=== PATIENT | male | born 1990 | race Caucasian/White ===

== ENCOUNTER 2023-07-20 17:28 | Emergency (ER) | payer OTHER, SELFPAY ==
[2023-07-20 17:34] VITALS: BP 139/96; PULSE 74; RESP 20; TEMP 36.7; O2SAT 98; BMI 28.0
--- NOTE | 2023-07-20 17:40 | ED_ITS ---
HPI - Abdominal Pain General Chief Complaint: Abdominal Pain Stated Complaint: Kidney Stones Time Seen by Provider: 07/20/23 17:29 Source: patient Mode of arrival: walk-in History of Present Illness HPI narrative: patient is a 32-year-old male who presents to the emergency department for the evaluation of right flank pain radiating into the abdomen. He states he was at [facility] yesterday and diagnosed with a 4 mm kidney stone. He states he has had no improvement with oxycodone and ibuprofen today for approximately the last eight hours. He has had no fevers, vomiting but does report nausea. He is urinating well and drinking fluids with no difficulty. He states he had blood in his urine yesterday but has not noticed any hematuria today. He states he was told yesterday to return to the Emergency Room if his pain got worse, but he states his pain was too severe so he came to the closest facility here today. Related Data Previous Rx's Medication Instructions Recorded ciprofloxacin HCl 500 mg tablet 500 mg PO BID #10 tabs 07/20/23 (Cipro) hydrocodone 5 mg-acetaminophen 325 1 tab PO Q6H PRN pain #12 tabs 07/20/23 mg tablet Allergies Allergy/AdvReac Type Severity Reaction Status Date / Time cefaclor [From [facility]] Allergy Severe Verified 07/20/23 17:34 Penicillins Allergy Severe Verified 07/20/23 17:34 Exam Narrative Exam Narrative: Gen.: Awake, alert, in no distress Head: Normocephalic, atraumatic ENT: Moist mucous membranes Respiratory: No respiratory distress, lungs clear bilaterally Cardio: Regular rate and rhythm Gastrointestinal: Abdomen is soft, nondistended and mildly tender to palpation in the right abdomen and right flank, no CVA tenderness. No guarding or rebound Extremities: Moves extremities equally Psych: Normal mood and affect Neuro: No focal neuro deficit Skin: Warm, dry, intact Constitutional Vital Signs, click to edit/add: Last Vital Signs Temp 98.1 F 07/20/23 17:34 Pulse 74 07/20/23 17:34 Resp 20 07/20/23 17:34 BP 139/96 H 07/20/23 17:34 Pulse Ox 98 07/20/23 17:34 O2 Del Method Room Air 07/20/23 17:34 Course Vital Signs Vital signs: Vital Signs Temperature 98.1 F 07/20/23 17:34 Pulse Rate 74 07/20/23 17:34 Respiratory Rate 20 07/20/23 17:34 Blood Pressure 139/96 H 07/20/23 17:34 Pulse Oximetry 98 07/20/23 17:34 Oxygen Delivery Method Room Air 07/20/23 17:34 Temperature 98.1 F 07/20/23 17:34 Pulse Rate 74 07/20/23 17:34 Respiratory Rate 20 07/20/23 17:34 Blood Pressure 139/96 H 07/20/23 17:34 Pulse Oximetry 98 07/20/23 17:34 Oxygen Delivery Method Room Air 07/20/23 17:34 MDM - Abdominal Pain MDM Narrative Medical decision making narrative: records reviewed from [facility] yesterday showing a CT scan with a 4 mm stone just distal to the UPJ, mild hydronephrosis noted. Labs today show white blood cell count 13.9 with no bandemia and normal lactic acid. Creatinine is 1.3. Patient was treated with IV fluids, Dilaudid, Toradol, Zofran. He is reevaluated by attending physician. We will add in Cipro to prevent significant infection, patient is given a prescription of [place] in case he runs out of his oxycodone. He is resting more comfortably on reevaluation by attending physician, but is remedicated with Dilaudid prior to discharge. He is given education and reassurance. Continue medications as prescribed from [facility]. Return to the Emergency Room if symptoms change or worsen. Follow-up with urology. Medical Records Attestation: I reviewed the patient's medical records. Lab Data Attestation: I reviewed the patient's lab results. Labs: Lab Results 07/20/23 Range/Units 17:40 WBC 13.9 H (4.0-11.0) 10^3/uL RBC 4.47 L (4.70-6.10) 10^6/uL Hgb 14.2 (14.0-18.0) g/dL Hct 41.0 L (42.0-54.0) % MCV 91.7 (80.0-94.0) fL MCH 31.8 (25.9-34.0) pg MCHC 34.6 (29.9-35.2) g/dL RDW 10.9 L (11.0-15.0) % Plt Count 248 (150-450) 10^3/uL MPV 10.2 (9.5-13.5) fL Neut % (Auto) 72.8 (43.0-75.0) % Lymph % (Auto) 16.9 L (20.5-60.0) % [place] % (Auto) 8.3 (1.7-12.0) % Eos % (Auto) 1.3 (0.9-7.0) % Baso % (Auto) 0.4 (0.2-2.0) % Neut # (Auto) 10.1 H (1.4-6.5) 10^3/uL Lymph # (Auto) 2.4 (1.2-3.8) 10^3/uL [place] # (Auto) 1.2 H (0.3-0.8) 10^3/uL Eos # (Auto) 0.2 (0.0-0.7) 10^3/uL Baso # (Auto) 0.1 (0.0-0.1) 10^3/uL Abs Immat Gran (auto) 0.04 H (0.00-0.03) 10^3/uL Imm/Tot Granulo (auto) 0.3 (0.0-0.5) % Sodium 140 (136-145) mmol/L Potassium 3.8 (3.5-5.1) mmol/L Chloride 103 (98-107) mmol/L Carbon Dioxide 28.7 (21.0-32.0) mmol/L Anion Gap 12.1 BUN 14.0 (7.0-18.0) mg/dL Creatinine 1.31 H (0.70-1.30) mg/dL Est GFR ( Amer) >60 (>=60) Est GFR (Non-Af Amer) >60 (>=60) BUN/Creatinine Ratio 10.7 Glucose 91 (74-106) mg/dL Lactate 1.1 (0.4-2.0) mmol/L Calcium 9.0 (8.5-10.1) mg/dL Total Bilirubin 0.4 (0.2-1.0) mg/dL AST 19 (15-37) U/L ALT 62 (16-63) U/L Alkaline Phosphatase 58 (46-116) U/L Total Protein 6.7 (6.4-8.2) g/dL Albumin 4.0 (3.4-5.0) g/dL Globulin 2.7 g/dL Albumin/Globulin Ratio 1.5 Discharge Plan Discharge Chief Complaint: Abdominal Pain Clinical Impression: Renal colic, Calculus of kidney Patient Disposition: Home, Self-Care Time of Disposition Decision: 18:32 Condition: Good Prescriptions / Home Meds: New hydrocodone-acetaminophen 5-325 mg tablet 1 tab PO Q6H PRN (Reason: pain) Qty: 12 0RF Rx Instructions: DX: N20.0 ciprofloxacin HCl [Cipro] 500 mg tablet 500 mg PO BID Qty: 10 0RF Instructions: Kidney Stones (ED) Stand Alone Forms: Portal Instructions Referrals: Physician,Non-Staff, MD [Primary Care Provider] - 1 week
[2023-07-20] MEDS: KETOROLAC TROMETHAMINE 30 MG/ML VIAL IVP (17:52)
[2023-07-20] MEDS: HYDROMORPHONE HCL 1 MG/ML CARTRIDGE IVP ×2 (17:52→18:50)
[2023-07-20] MEDS: ONDANSETRON PF 4 MG/2 ML VIAL IV (17:52)
[2023-07-20] MEDS: 0.9 % SODIUM CHLORIDE 1,000 ML 1000 ML IV (17:52)
[2023-07-20 17:54] LABS: Basophils Absolute Auto 0.1 10^3/uL (0.0-0.1); Basophils Percent Auto 0.4 % (0.2-2.0); Eosinophils Absolute Auto 0.2 10^3/uL (0.0-0.7); Eosinophils Percent Auto 1.3 % (0.9-7.0); Hemoglobin 14.2 g/dL (14.0-18.0); Immature Granulocytes Abs Auto 0.04 10^3/uL (0.00-0.03); Immature Granulocytes Pct Auto 0.3 % (0.0-0.5); Lymphocytes Absolute Auto 2.4 10^3/uL (1.2-3.8); Lymphocytes Percent Auto 16.9 % (20.5-60.0); Mean Corpuscular HGB Conc 34.6 g/dL (29.9-35.2); Mean Corpuscular Hemoglobin 31.8 pg (25.9-34.0); Mean Corpuscular Volume 91.7 fL (80.0-94.0); Mean Platelet Volume 10.2 fL (9.5-13.5); Monocytes Absolute Auto 1.2 10^3/uL (0.3-0.8); Monocytes Percent Auto 8.3 % (1.7-12.0); Neutrophils Absolute Auto 10.1 10^3/uL (1.4-6.5); Neutrophils Percent Auto 72.8 % (43.0-75.0); Platelet Count 248 10^3/uL (150-450); Red Blood Count 4.47 10^6/uL (4.70-6.10); Red Cell Distribution Width 10.9 % (11.0-15.0); White Blood Count 13.9 10^3/uL (4.0-11.0)
[2023-07-20 18:02] LABS: Alanine Aminotransferase 62 U/L (16-63); Albumin Globulin Ratio 1.5; Alkaline Phosphatase 58 U/L (46-116); Anion Gap 12.1; Aspartate Amino Transferase 19 U/L (15-37); BUN Creatinine Ratio 10.7; Bilirubin Total 0.4 mg/dL (0.2-1.0); Carbon Dioxide 28.7 mmol/L (21.0-32.0); Chloride 103 mmol/L (98-107); Estimated GFR (African America >60 (>=60); Estimated GFR (Non-African Ame >60 (>=60); Globulin 2.7 g/dL; Glucose 91 mg/dL (74-106); Potassium 3.8 mmol/L (3.5-5.1); Sodium 140 mmol/L (136-145); Total Protein 6.7 g/dL (6.4-8.2)
[2023-07-20 18:05] LABS: Lactate/Lactic Acid 1.1 mmol/L (0.4-2.0)
[2023-07-20] MEDS: CIPROFLOXACIN HCL 500 MG TABLET PO (19:27)
[2023-07-20 19:37] LABS: Bilirubin Urine NEGATIVE (NEGATIVE); Blood Urine MODERATE (NEGATIVE); Clarity Urine CLEAR (CLEAR); Color Urine LT. YELLOW (YELLOW); Glucose Urine UA NEGATIVE (NEGATIVE); Ketones Urine NEGATIVE (NEGATIVE); Leukocyte Esterase Urine NEGATIVE (NEGATIVE); Nitrite Urine NEGATIVE (NEGATIVE); Protein Urine NEGATIVE (NEG/TRACE); Urobilinogen Urine 0.2 EU/dL (0.2-1.0)
[2023-07-20 19:39] LABS: Urine Microscopic Indicated YES
[2023-07-20 19:53] LABS: Bacteria Urine NONE SEEN #/HPF (NONE SEEN); Cast Seen? NONE SEEN #/LPF (NONE SEEN); Crystals Seen? None Seen #/HPF (None Seen); Mucus Urine NONE SEEN (NONE SEEN); RBC Urine 0-2 #/HPF (0-2); Squamous Epithelial Cell Urine NONE SEEN #/LPF (NONE/RARE); WBC Urine 0-2 #/HPF (NONE SEEN)
== END 2023-07-20 19:36 | disposition home or self-care (01) ==
PROVIDERS: Physician Assistant; Emergency Provider Emergency Medicine
DX: N20.0 Calculus of kidney (principal); R10.9 Unspecified abdominal pain
CPT/HCPCS: 36415; 80053; 81001; 83605; 85025; 96374; 96375; 96376; 99285; J1170

== ENCOUNTER 2023-07-28 21:28 | Emergency (ER) | payer OTHER, SELFPAY ==
[2023-07-28 21:42] VITALS: BP 144/99; PULSE 72; RESP 20; TEMP 36.8; O2SAT 98; BMI 28.1
--- NOTE | 2023-07-28 22:16 | ED_ITS ---
HPI - Male Genitourinary General Chief complaint: Urogenital-Male Stated complaint: post surgical complaints Time Seen by Provider: 07/28/23 22:06 History of Present Illness HPI Narrative: bilat testicle pain. State he had a stent placed by Urology Dr Mccloud 4 days ago at [facility]. States after the procedure he noticed testicle pain. States the pain has continued on and off but constant today and not receiving any relief with motrin . States testicles are not tender and they don't hurt when you move them they are just hurting. No urinary symptoms. States his kidney stone was on the right side. No fever or urinary symptoms MD Complaint: Reports testicle pain Related Data Previous Rx's Medication Instructions Recorded ciprofloxacin HCl 500 mg tablet 500 mg PO BID #10 tabs 07/20/23 (Cipro) hydrocodone 5 mg-acetaminophen 325 1 tab PO Q6H PRN pain #12 tabs 07/20/23 mg tablet Allergies Allergy/AdvReac Type Severity Reaction Status Date / Time cefaclor [From Ceclor] Allergy Severe Verified 07/20/23 17:34 Penicillins Allergy Severe Verified 07/20/23 17:34 Review of Systems ROS Status of ROS 10 or more systems reviewed and unremarkable except as noted in history and below [facility] PFS Social History Smoking status: Never smoker Exam Constitutional Vital Signs, click to edit/add: Last Vital Signs Temp 98.3 F 07/28/23 21:42 Pulse 72 07/28/23 21:42 Resp 20 07/28/23 21:42 BP 144/99 H 07/28/23 21:42 Pulse Ox 98 07/28/23 21:42 O2 Del Method Room Air 07/28/23 21:42 Common normals: no apparent distress, average body habitus, oriented x3, no limitations and healthy appearing Eye Common normals: EOMs intact bilaterally and conjunctivae normal Respiratory Common normals: normal respiratory effort, no retractions, no use of accessory muscles and clear to auscultation bilaterally Cardio Common normals: regular rate, regular rhythm, S1 normal heart sound and S2 normal heart sound GI Common normals: Normal to inspection, nondistended, normoactive bowel sounds present, soft to palpation and non-tender Other: mild tenderness right inguinal. normal testes. no swelling or tenderness Extremity Common normals: normal to inspection Neuro Common normals: oriented x3, CN's II-XII intact bilaterally, moves all extremities, no focal motor deficits and no sensory deficits noted Psych Appearance: grossly normal Course Vital Signs Vital signs: Vital Signs Temperature 98.3 F 07/28/23 21:42 Pulse Rate 72 07/28/23 21:42 Respiratory Rate 20 07/28/23 21:42 Blood Pressure 144/99 H 07/28/23 21:42 Pulse Oximetry 98 07/28/23 21:42 Oxygen Delivery Method Room Air 07/28/23 21:42 Temperature 98.3 F 07/28/23 21:42 Pulse Rate 72 07/28/23 21:42 Respiratory Rate 20 07/28/23 21:42 Blood Pressure 144/99 H 07/28/23 21:42 Pulse Oximetry 98 07/28/23 21:42 Oxygen Delivery Method Room Air 07/28/23 21:42 MDM - Male Genitourinary MDM Narrative Medical decision making narrative: patient had stent placed this past tuesday right ureter for obstructing stone. Afterwards developed testicle pain. pain was on and off but became more constant when he presented here. Xray with proper placement of the stent. UA not infected. Patient treated with pyridium, toradol and magnesium with resolution of his testicle pain. Discharged home to follow up with urology Lab Data Labs: Lab Results 07/28/23 07/28/23 07/28/23 Range/Units 21:00 22:25 22:30 WBC 4.8 (4.0-11.0) 10^3/uL RBC 4.38 L (4.70-6.10) 10^6/uL Hgb 14.1 (14.0-18.0) g/dL Hct 40.1 L (42.0-54.0) % MCV 91.6 (80.0-94.0) fL MCH 32.2 (25.9-34.0) pg MCHC 35.2 (29.9-35.2) g/dL RDW 10.7 L (11.0-15.0) % Plt Count 256 (150-450) 10^3/uL MPV 10.4 (9.5-13.5) fL Neut % (Auto) 36.1 L (43.0-75.0) % Lymph % (Auto) 48.9 (20.5-60.0) % [place] % (Auto) 9.9 (1.7-12.0) % Eos % (Auto) 3.9 (0.9-7.0) % Baso % (Auto) 1.0 (0.2-2.0) % Neut # (Auto) 1.7 (1.4-6.5) 10^3/uL Lymph # (Auto) 2.4 (1.2-3.8) 10^3/uL [place] # (Auto) 0.5 (0.3-0.8) 10^3/uL Eos # (Auto) 0.2 (0.0-0.7) 10^3/uL Baso # (Auto) 0.1 (0.0-0.1) 10^3/uL Abs Immat Gran (auto) 0.01 (0.00-0.03) 10^3/uL Imm/Tot Granulo (auto) 0.2 (0.0-0.5) % Sodium 138 (136-145) mmol/L Potassium 3.7 (3.5-5.1) mmol/L Chloride 104 (98-107) mmol/L Carbon Dioxide 28.6 (21.0-32.0) mmol/L Anion Gap 9.1 BUN 15.0 (7.0-18.0) mg/dL Creatinine 1.12 (0.70-1.30) mg/dL Est GFR ( Amer) >60 (>=60) Est GFR (Non-Af Amer) >60 (>=60) BUN/Creatinine Ratio 13.4 Glucose 94 (74-106) mg/dL Calcium 8.8 (8.5-10.1) mg/dL Urine Color Lt. red (YELLOW) Urine Clarity Sl cloudy (CLEAR) Urine pH 7.0 (5.0-9.0) Ur Specific [place] 1.015 (1.005-1.025) Urine Protein 30 A (NEG/TRACE) mg/dL Urine Glucose (UA) Negative (NEGATIVE) mg/dL Urine Ketones Negative (NEGATIVE) mg/dL Urine Occult Blood Large A (NEGATIVE) Urine Nitrite Negative (NEGATIVE) Urine Bilirubin Negative (NEGATIVE) Urine Urobilinogen 0.2 (0.2-1.0) EU/dL Ur Leukocyte Esterase Trace A (NEGATIVE) Urine RBC >100 A (0-2) #/HPF Urine WBC 0-2 A (NONE SEEN) #/HPF Ur Squamous Epith Cells Rare (NONE/RARE) #/LPF Urine Crystals None seen (None Seen) #/HPF Urine Bacteria None seen (NONE SEEN) #/HPF Urine Casts None seen (NONE SEEN) #/LPF Urine Mucus None seen (NONE SEEN) Ur Culture Indicated? No Discharge Plan Discharge Chief Complaint: Urogenital-Male Clinical Impression: Pain in both testicles Patient Disposition: Home, Self-Care Prescriptions / Home Meds: No Action hydrocodone-acetaminophen 5-325 mg tablet 1 tab PO Q6H PRN (Reason: pain) Qty: 12 0RF Rx Instructions: DX: N20.0 ciprofloxacin HCl [Cipro] 500 mg tablet 500 mg PO BID Qty: 10 0RF Instructions: Testicle Pain (ED) Additional Instructions: follow up with urology Stand Alone Forms: Portal Instructions Referrals: Physician,Non-Staff, MD [Primary Care Provider] - 1 week
[2023-07-28 22:27] LABS: Bilirubin Urine NEGATIVE (NEGATIVE); Blood Urine LARGE (NEGATIVE); Clarity Urine SL CLOUDY (CLEAR); Color Urine LT. RED (YELLOW); Glucose Urine UA NEGATIVE (NEGATIVE); Ketones Urine NEGATIVE (NEGATIVE); Leukocyte Esterase Urine TRACE (NEGATIVE); Nitrite Urine NEGATIVE (NEGATIVE); Protein Urine 30 mg/dL (NEG/TRACE); Specific Gravity Urine 1.015 (1.005-1.025); Urobilinogen Urine 0.2 EU/dL (0.2-1.0)
[2023-07-28 22:28] LABS: Urine Microscopic Indicated YES
--- NOTE | 2023-07-28 22:31 | XR_ITS ---
The [address] [address] Patient Name: MANUELA CHAIDEZ MRN: [id number] date: 1990 Sex: M Assigned Patient Location: ER Current Patient Location: ER Accession/Order Number: [id number] Exam Date: 07/28/2023 22:45 Report Date: 07/28/2023 23:00 At the request of: BEBETO PEREZ Procedure: XR abdomen min 2V EXAM: XR abdomen min 2V REASON FOR EXAM: Male, 32 years, testicle pain. TECHNIQUE: 3 views of the abdomen are performed. COMPARISON: None. FINDINGS: The lung bases are not included in the latuu-nf-ecln. There is a normal abdominal gas pattern. There is a moderate amount stool throughout the colon. There is no demonstrated free abdominal air. The visualized liver, spleen, and kidneys are grossly normal in size and morphology. There is a right ureteral stent. A small calcification projects adjacent to the right ureteral stent measuring approximately 2 mm, which may represent a ureteral calculus. Normal osseous structures. Multiple phleboliths are seen within the pelvis. XR/XR abdomen min 2V IMPRESSION: Right ureteral stent is in place. Small calcification adjacent to the proximal aspect of the stomach likely represents a ureteral calculus. Nonobstructive abdominal bowel gas pattern. Electronically authenticated by: NASIR SPEARS Date: 07/28/2023 23:00
[2023-07-28 22:33] LABS: RBC Urine >100 #/HPF (0-2); WBC Urine 0-2 #/HPF (NONE SEEN)
[2023-07-28] MEDS: KETOROLAC TROMETHAMINE 30 MG/ML VIAL IVP (22:33)
[2023-07-28] MEDS: PHENAZOPYRIDINE 100 MG TABLET 200 MG PO (22:33)
[2023-07-28 22:34] LABS: Bacteria Urine NONE SEEN #/HPF (NONE SEEN); Cast Seen? NONE SEEN #/LPF (NONE SEEN); Crystals Seen? None Seen #/HPF (None Seen); Mucus Urine NONE SEEN (NONE SEEN); Squamous Epithelial Cell Urine RARE #/LPF (NONE/RARE); Urine Culture Indicated NO
[2023-07-28 22:38] LABS: Basophils Absolute Auto 0.1 10^3/uL (0.0-0.1); Eosinophils Absolute Auto 0.2 10^3/uL (0.0-0.7); Eosinophils Percent Auto 3.9 % (0.9-7.0); Hematocrit 40.1 % (42.0-54.0); Hemoglobin 14.1 g/dL (14.0-18.0); Immature Granulocytes Abs Auto 0.01 10^3/uL (0.00-0.03); Immature Granulocytes Pct Auto 0.2 % (0.0-0.5); Lymphocytes Absolute Auto 2.4 10^3/uL (1.2-3.8); Lymphocytes Percent Auto 48.9 % (20.5-60.0); Mean Corpuscular HGB Conc 35.2 g/dL (29.9-35.2); Mean Corpuscular Hemoglobin 32.2 pg (25.9-34.0); Mean Corpuscular Volume 91.6 fL (80.0-94.0); Mean Platelet Volume 10.4 fL (9.5-13.5); Monocytes Absolute Auto 0.5 10^3/uL (0.3-0.8); Monocytes Percent Auto 9.9 % (1.7-12.0); Neutrophils Absolute Auto 1.7 10^3/uL (1.4-6.5); Neutrophils Percent Auto 36.1 % (43.0-75.0); Platelet Count 256 10^3/uL (150-450); Red Blood Count 4.38 10^6/uL (4.70-6.10); Red Cell Distribution Width 10.7 % (11.0-15.0); White Blood Count 4.8 10^3/uL (4.0-11.0)
[2023-07-28 22:49] LABS: Anion Gap 9.1; BUN Creatinine Ratio 13.4; Calcium 8.8 mg/dL (8.5-10.1); Carbon Dioxide 28.6 mmol/L (21.0-32.0); Chloride 104 mmol/L (98-107); Estimated GFR (African America >60 (>=60); Estimated GFR (Non-African Ame >60 (>=60); Glucose 94 mg/dL (74-106); Potassium 3.7 mmol/L (3.5-5.1); Sodium 138 mmol/L (136-145)
[2023-07-29] MEDS: MAGNESIUM SULFATE IN WATER 2 GM/50 ML PREMIX IV (00:10)
== END 2023-07-29 01:09 | disposition home or self-care (01) ==
PROVIDERS: Emergency Provider Internal Medicine
DX: N50.812 Left testicular pain (principal); N50.811 Right testicular pain; Z96.0 Presence of urogenital implants; Z87.442 Personal history of urinary calculi
CPT/HCPCS: 36415; 74019; 80048; 81001; 85025; 96365; 96375; 99285

== ENCOUNTER 2023-09-16 21:04 | Emergency (ER) | payer OTHER, SELFPAY ==
[2023-09-16] VITALS (12 sets, daily range): BP systolic 130–143; BP diastolic 88; PULSE 60–80; RESP 13–26; TEMP 36.9; O2SAT 98; BMI 28.1
--- NOTE | 2023-09-16 21:38 | PC.NURSE ---
Pt reports increasedd SOB related to asthma. Pt uses albuterol inhaler at home without relief. This past Tuesday pt was seen at urgent care and sent home on PO steroids, pt reports no improvement. Lung sounds clear bilaterally.
--- NOTE | 2023-09-16 21:47 | XR_ITS ---
The [address] [address] Patient Name: MANUELA CHAIDEZ MRN: [id number] date: 1990 Sex: M Assigned Patient Location: ER Current Patient Location: ED.MAIN Accession/Order Number: [id number] Exam Date: 09/16/2023 23:20 Report Date: 09/16/2023 23:34 At the request of: RAMAKRISHNA ADNIEL Procedure: XR chest 1V EXAM: XR chest 1V HISTORY: shortness of breath COMPARISON: Chest x-ray 11/03/2022 TECHNIQUE: Single AP radiograph of the chest FINDINGS: No pneumothorax, pleural effusion or consolidation. Normal heart size. No acute osseous abnormality. XR/XR chest 1V IMPRESSION: No acute cardiopulmonary process. Electronically authenticated by: PUJA DE LA TORRE Date: 09/16/2023 23:34
--- NOTE | 2023-09-16 21:47 | ECG_ITS ---
The [facility] Test Date: 2023-09-16 Pat Name: MANUELA CHAIDEZ Department: Room: - Gender: Male Check Grader: : 1990 Requested By: JAGJIT CHINCHILLA Order Number: [id number] Reading MD: JAGJIT CHINCHILLA Measurements Intervals [place] Rate: 62 P: 52 MA: 144 QRS: 74 QRSD: 94 T: 34 QT: 382 QTc: 387 Interpretive Statements 1100 Sinus rhythm 9110 normal ECG No previous ECG available for comparison Electronically Signed On 09-18-2023 7:38:15 EST by JAGJIT CHINCHILLA
--- NOTE | 2023-09-16 21:48 | ED_ITS ---
HPI - General Adult General Chief complaint: Asthma Stated complaint: Shortness of Breath Time Seen by Provider: 09/16/23 21:12 Source: patient Mode of arrival: walk-in Limitations: no limitations History of Present Illness HPI narrative: Patient who was healthy up until a week ago presents with shortness of breath - sometimes at rest but often with exertion - and the sensation of wheezing even when wheezing isn't audible. No prior diagnosis of asthma. He had negative swabs for everything at the urgent care in [place] last week and was prescribed steroids and albuterol inhaler. He said this has caused no improvement. He admits to some chest congestion, cough worse at night, generalized fatigue. No GI or symptoms. Related Data Home Medications Medication Instructions Recorded Confirmed prednisone 20 mg tablet 20 mg PO DAILY 09/16/23 09/16/23 pyrilamine 7.5 mg-dextromethorphan 7.5 ml PO DAILY 09/16/23 09/16/23 7.5 mg/5 mL oral liquid ([place] DM) valacyclovir 1 gram tablet 1,000 mg PO DAILY 09/16/23 09/16/23 Previous Rx's Medication Instructions Recorded azithromycin 250 mg tablet 250 mg PO DAILY 4 days #4 tabs 09/16/23 Allergies Allergy/AdvReac Type Severity Reaction Status Date / Time cefaclor [From [facility]] Allergy Severe Verified 07/20/23 17:34 Penicillins Allergy Severe Verified 07/20/23 17:34 [facility] Social History Smoking status: Former smoker Exam Narrative Exam Narrative: Nurses notes and vital signs reviewed and patient is not hypoxic. afebrile General: Well-appearing and in no apparent distress. Skin: Warm, dry, no pallor noted. No rash. Head: Normocephalic, atraumatic. Neck: Supple, non-tender. Eye: Pupils are equal, round and EOMI. No scleral icterus. Ears, Nose, Mouth, and Throat: TM are clear, no nasal mucosal hypertrophy. Oral mucosa is moist, no posterior oropharynx erythema, uvula is mid-line Cardiovascular: Regular Rate and Rhythm without murmur, gallop or rub. Respiratory: No accessory muscle use or respiratory distress. Lungs are clear to auscultation, no wheezing, rales or rhonchi Chest Wall: no tenderness, crepitus or subcutaneous emphysema. Musculoskeletal: normal ROM, no calf or popliteal tenderness, no lower e xtremity edema/swelling GI: Abdomen is soft, non-distended. Normal bowel sounds. No masses appreciated. No tenderness to palpation. No rebound, guarding, or rigidity noted. Neurological: A&O x4. No cranial nerve dysfunction observed. No truncal ataxia. Moves all extremities. Sensation intact. Psychiatric: Cooperative and interactive. Normal mood and affect. Constitutional Vital Signs, click to edit/add: Last Vital Signs Temp 98.4 F 09/16/23 21:08 Pulse 68 09/16/23 23:10 Resp 13 09/16/23 23:10 BP 143/88 H 09/16/23 21:08 Pulse Ox 98 09/16/23 21:08 O2 Del Method Room Air 09/16/23 21:08 Course Vital Signs Vital signs: Vital Signs Temperature 98.4 F 09/16/23 21:08 Pulse Rate 77 09/16/23 21:08 Respiratory Rate 22 09/16/23 21:08 Blood Pressure 143/88 H 09/16/23 21:08 Pulse Oximetry 98 09/16/23 21:08 Oxygen Delivery Method Room Air 09/16/23 21:08 Temperature 98.4 F 09/16/23 21:08 Pulse Rate 68 09/16/23 23:10 Respiratory Rate 13 09/16/23 23:10 Blood Pressure 143/88 H 09/16/23 21:08 Pulse Oximetry 98 09/16/23 21:08 Oxygen Delivery Method Room Air 09/16/23 21:08 Medical Decision Making [facility] Narrative Medical decision making narrative: EKG obtained. Blood drawn and sent for evaluation. chest x-ray obtained - I identified LLL infiltrate. His blood testing was notable for elevated BUN, compared to normal value on prior testing. Normal electrolytes, normal WBC, negative d-dimer, troponin and BNP. He was informed of results, given first dose of azithromycin in ED and discharged home with the rest of the azithromycin. The patient has no primary care physician. He said that he has an appointment scheduled with Dr. Solis next week. Lab Data Lab results reviewed: Yes I reviewed the patient's lab results Labs: Lab Results 09/16/23 Range/Units 22:02 WBC 8.5 (4.0-11.0) 10^3/uL RBC 4.58 L (4.70-6.10) 10^6/uL Hgb 14.7 (14.0-18.0) g/dL Hct 41.7 L (42.0-54.0) % MCV 91.0 (80.0-94.0) fL MCH 32.1 (25.9-34.0) pg MCHC 35.3 H (29.9-35.2) g/dL RDW 11.2 (11.0-15.0) % Plt Count 303 (150-450) 10^3/uL MPV 10.2 (9.5-13.5) fL Neut % (Auto) 46.9 (43.0-75.0) % Lymph % (Auto) 40.2 (20.5-60.0) % [place] % (Auto) 8.6 (1.7-12.0) % Eos % (Auto) 2.8 (0.9-7.0) % Baso % (Auto) 1.1 (0.2-2.0) % Neut # (Auto) 4.0 (1.4-6.5) 10^3/uL Lymph # (Auto) 3.4 (1.2-3.8) 10^3/uL [place] # (Auto) 0.7 (0.3-0.8) 10^3/uL Eos # (Auto) 0.2 (0.0-0.7) 10^3/uL Baso # (Auto) 0.1 (0.0-0.1) 10^3/uL Abs Immat Gran (auto) 0.03 (0.00-0.03) 10^3/uL Imm/Tot Granulo (auto) 0.4 (0.0-0.5) % D-Dimer <0.19 (<=0.59) mg/L FEU Sodium 138 (136-145) mmol/L Potassium 3.7 (3.5-5.1) mmol/L Chloride 102 (98-107) mmol/L Carbon Dioxide 28.4 (21.0-32.0) mmol/L Anion Gap 11.3 BUN 24.0 H (7.0-18.0) mg/dL Creatinine 0.97 (0.70-1.30) mg/dL Est GFR ( Amer) >60 (>=60) Est GFR (Non-Af Amer) >60 (>=60) BUN/Creatinine Ratio 24.7 Glucose 108 H (74-106) mg/dL Calcium 9.2 (8.5-10.1) mg/dL Total Bilirubin 0.5 (0.2-1.0) mg/dL AST 26 (15-37) U/L ALT 151 H (16-63) U/L Alkaline Phosphatase 60 (46-116) U/L Troponin I High Sens 5.0 (4.0-76.1) pg/mL NT-Pro-B Natriuret Pep 24.0 (<=450.0) pg/mL Total Protein 7.0 (6.4-8.2) g/dL Albumin 4.2 (3.4-5.0) g/dL Globulin 2.8 g/dL Albumin/Globulin Ratio 1.5 SARS-CoV-2 (PCR) Negative (NEGATIVE) Imaging Data Chest x-ray: My impression: LLL infiltrate ECG Data Attestation: I personally reviewed and interpreted this ECG as follows: Interpretation: EKG interpretation: Emergency Department physician interpretation. Normal sinus rhythm at 62bpm. Normal axis, normal intervals and no ST segment elevation or depression. normal EKG Discharge Plan Discharge Chief Complaint: Asthma Clinical Impression: Acute kidney injury, Community acquired pneumonia Patient Disposition: Home, Self-Care Time of Disposition Decision: 23:36 Prescriptions / Home Meds: New azithromycin 250 mg tablet 250 mg PO DAILY 4 Days Qty: 4 0RF Rx Instructions: start on day 2 of therapy No Action valacyclovir 1 gram tablet 1,000 mg PO DAILY [place] DM 7.5-7.5 mg/5 mL liquid 7.5 ml PO DAILY prednisone 20 mg tablet 20 mg PO DAILY Instructions: Acute Kidney Injury (DC), Community Acquired Pneumonia (ED) Stand Alone Forms: Portal Instructions Referrals: Wily Solis DO [Physician] - 1 week
[2023-09-16 22:11] LABS: Basophils Absolute Auto 0.1 10^3/uL (0.0-0.1); Basophils Percent Auto 1.1 % (0.2-2.0); Eosinophils Absolute Auto 0.2 10^3/uL (0.0-0.7); Eosinophils Percent Auto 2.8 % (0.9-7.0); Hematocrit 41.7 % (42.0-54.0); Hemoglobin 14.7 g/dL (14.0-18.0); Immature Granulocytes Abs Auto 0.03 10^3/uL (0.00-0.03); Immature Granulocytes Pct Auto 0.4 % (0.0-0.5); Lymphocytes Absolute Auto 3.4 10^3/uL (1.2-3.8); Lymphocytes Percent Auto 40.2 % (20.5-60.0); Mean Corpuscular HGB Conc 35.3 g/dL (29.9-35.2); Mean Corpuscular Hemoglobin 32.1 pg (25.9-34.0); Mean Platelet Volume 10.2 fL (9.5-13.5); Monocytes Absolute Auto 0.7 10^3/uL (0.3-0.8); Monocytes Percent Auto 8.6 % (1.7-12.0); Neutrophils Percent Auto 46.9 % (43.0-75.0); Platelet Count 303 10^3/uL (150-450); Red Blood Count 4.58 10^6/uL (4.70-6.10); Red Cell Distribution Width 11.2 % (11.0-15.0); White Blood Count 8.5 10^3/uL (4.0-11.0)
--- NOTE | 2023-09-16 22:14 | PC.NURSE ---
Dr Parson spoke with pt on importance of EKG. Pt agreeable, EKG performed by RN.
[2023-09-16 22:22] LABS: SARS-CoV-2 Ag NEGATIVE (NEGATIVE)
[2023-09-16 22:28] LABS: Alanine Aminotransferase 151 U/L (16-63); Albumin Globulin Ratio 1.5; Albumin Level 4.2 g/dL (3.4-5.0); Alkaline Phosphatase 60 U/L (46-116); Anion Gap 11.3; Aspartate Amino Transferase 26 U/L (15-37); BUN Creatinine Ratio 24.7; Bilirubin Total 0.5 mg/dL (0.2-1.0); Calcium 9.2 mg/dL (8.5-10.1); Carbon Dioxide 28.4 mmol/L (21.0-32.0); Chloride 102 mmol/L (98-107); Estimated GFR (African America >60 (>=60); Estimated GFR (Non-African Ame >60 (>=60); Globulin 2.8 g/dL; Glucose 108 mg/dL (74-106); Potassium 3.7 mmol/L (3.5-5.1); Sodium 138 mmol/L (136-145)
[2023-09-16 22:36] LABS: D Dimer <0.19 mg/L FEU (<=0.59)
[2023-09-16] MEDS: AZITHROMYCIN 250 MG TABLET 500 MG PO (23:45)
[2023-09-17 10:28] LABS: SARS-CoV-2 NAA NOT DETECTED (NOT DETECTE)
== END 2023-09-16 23:50 | disposition home or self-care (01) ==
PROVIDERS: Emergency Provider Emergency Medicine
DX: J18.9 Pneumonia, unspecified organism (principal); N17.9 Acute kidney failure, unspecified; Z20.822 Contact with and (suspected) exposure to COVID-19; Z79.899 Other long term (current) drug therapy; Z87.891 Personal history of nicotine dependence
CPT/HCPCS: 36415; 71045; 80053; 83880; 84484; 85025; 85378; 87635; 87811; 93005; 99285

== ENCOUNTER 2023-09-30 15:24 | Emergency (ER) | payer OTHER, SELFPAY ==
[2023-09-30 15:30] VITALS: BP 124/78; PULSE 68; RESP 18; TEMP 36.8; O2SAT 98; BMI 28.8
--- NOTE | 2023-09-30 15:37 | ECG_ITS ---
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
--- NOTE | 2023-09-30 15:37 | XR_ITS ---
The [address] [address] Patient Name: MANUELA CHAIDEZ MRN: [id number] date: 1990 Sex: M Assigned Patient Location: ER Current Patient Location: ER Accession/Order Number: [id number] Exam Date: 09/30/2023 15:50 Report Date: 09/30/2023 16:21 At the request of: MELVIN REGAN Procedure: XR chest 1V EXAM: XR chest 1V HISTORY: or right-sided chest pain COMPARISON: 09/16/2023 TECHNIQUE: Chest X-ray AP, 1 view FINDINGS: Support devices: None. Lungs/pleura: No consolidation, effusion, or pneumothorax. Heart and mediastinum: Normal contours. Bones: No acute abnormality identified. XR/XR chest 1V Impression: No radiographic evidence of acute cardiopulmonary process. Electronically authenticated by: JATIN TALAVERA Date: 09/30/2023 16:21
--- NOTE | 2023-09-30 15:40 | ED_ITS ---
HPI - Chest Pain General Chief Complaint: Upper Respiratory Infection Stated Complaint: chest pain right side Time Seen by Provider: 09/30/23 15:28 Source: patient Mode of arrival: walk-in Limitations: no limitations History of Present Illness HPI narrative: 32-year-old male presents to the Emergency Department for right sided chest pain. It's on the right and anterolateral portion of the inferior chest wall. It hurts to push on it. He was diagnosed with pneumonia and finished a Z-Fabrice about ten days ago. The cough is gone away and he's had no fever but in the past day or two he developed this pain. No trauma or unusual activity and no left-sided pain. No substernal pain. It comes and goes. Related Data Home Medications Medication Instructions Recorded Confirmed prednisone 20 mg tablet 20 mg PO DAILY 09/16/23 09/16/23 pyrilamine 7.5 mg-dextromethorphan 7.5 ml PO DAILY 09/16/23 09/16/23 7.5 mg/5 mL oral liquid ([place] DM) valacyclovir 1 gram tablet 1,000 mg PO DAILY 09/16/23 09/16/23 Previous Rx's Medication Instructions Recorded azithromycin 250 mg tablet 250 mg PO DAILY 4 days #4 tabs 09/16/23 Allergies Allergy/AdvReac Type Severity Reaction Status Date / Time cefaclor [From Ceclor] Allergy Severe Verified 09/30/23 15:30 Penicillins Allergy Severe Verified 09/30/23 15:30 Review of Systems ROS Narrative A ten point review of systems is negative except as noted above. PFSH PFS Social History Smoking status: Former smoker Exam Narrative Exam Narrative: Nurses note and vital signs reviewed and patient is not hypoxic. General: The patient appears well and in no apparent distress. Patient is resting comfortably on cart. Skin: Warm, dry, no pallor noted. There is no rash noted. Head: Normocephalic, atraumatic Eye: Normal conjunctiva, no drainage Ears, Nose, Mouth, and Throat: oral mucosa is moist. Nares patent. Cardiovascular: Regular Rate and Rhythm Respiratory: Patient is in no distress, no accessory muscle use, lungs are clear to auscultation, no wheezing, rales or rhonchi. palpation of the right anterolateral inferior portion of his chest wall reproduces his discomfort. There is no crepitus bruise rash or abrasion present. No tenderness in the right upper quadrant. Back: non-tender GI: Normal bowel sounds, no tenderness to palpation, no masses appreciated. No rebound, guarding, or rigidity noted. Musculoskeletal: the patient has no evidence of calf tenderness, no pitting edema, symmetrical pulses noted bilaterally Neurological: A&O, normal speech Psychiatric: Cooperative Constitutional Vital Signs, click to edit/add: Last Vital Signs Temp 98.2 F 09/30/23 15:30 Pulse 68 09/30/23 15:30 Resp 18 09/30/23 15:30 BP 124/78 09/30/23 15:30 Pulse Ox 98 09/30/23 15:30 O2 Del Method Room Air 09/30/23 15:30 Course Vital Signs Vital signs: Vital Signs Temperature 98.2 F 09/30/23 15:30 Pulse Rate 68 09/30/23 15:30 Respiratory Rate 18 09/30/23 15:30 Blood Pressure 124/78 09/30/23 15:30 Pulse Oximetry 98 09/30/23 15:30 Oxygen Delivery Method Room Air 09/30/23 15:30 Temperature 98.2 F 09/30/23 15:30 Pulse Rate 68 09/30/23 15:30 Respiratory Rate 18 09/30/23 15:30 Blood Pressure 124/78 09/30/23 15:30 Pulse Oximetry 98 09/30/23 15:30 Oxygen Delivery Method Room Air 09/30/23 15:30 MDM - Chest Pain MDM Narrative Medical decision making narrative: his workup including d-dimer is negative. My clinical impression at this point is he has chest wall pain. He'll be discharged home and will take anti- inflammatories. Treatment diagnosis and follow up are discussed with the patient. Differential Diagnosis Differential diagnosis: Likely pneumothorax, costochondritis, chest pain and other (pulmonary embolism, pleurisy) Lab Data Attestation: I reviewed the patient's lab results. Labs: Lab Results 09/30/23 Range/Units 15:45 WBC 5.1 (4.0-11.0) 10^3/uL RBC 4.52 L (4.70-6.10) 10^6/uL Hgb 14.6 (14.0-18.0) g/dL Hct 41.1 L (42.0-54.0) % MCV 90.9 (80.0-94.0) fL MCH 32.3 (25.9-34.0) pg MCHC 35.5 H (29.9-35.2) g/dL RDW 11.0 (11.0-15.0) % Plt Count 245 (150-450) 10^3/uL MPV 10.6 (9.5-13.5) fL Neut % (Auto) 43.5 (43.0-75.0) % Lymph % (Auto) 40.7 (20.5-60.0) % [place] % (Auto) 11.7 (1.7-12.0) % Eos % (Auto) 3.3 (0.9-7.0) % Baso % (Auto) 0.6 (0.2-2.0) % Neut # (Auto) 2.2 (1.4-6.5) 10^3/uL Lymph # (Auto) 2.1 (1.2-3.8) 10^3/uL [place] # (Auto) 0.6 (0.3-0.8) 10^3/uL Eos # (Auto) 0.2 (0.0-0.7) 10^3/uL Baso # (Auto) 0.0 (0.0-0.1) 10^3/uL Abs Immat Gran (auto) 0.01 (0.00-0.03) 10^3/uL Imm/Tot Granulo (auto) 0.2 (0.0-0.5) % D-Dimer <0.19 (<=0.59) mg/L FEU Sodium 141 (136-145) mmol/L Potassium 4.0 (3.5-5.1) mmol/L Chloride 104 (98-107) mmol/L Carbon Dioxide 27.3 (21.0-32.0) mmol/L Anion Gap 13.7 BUN 15.0 (7.0-18.0) mg/dL Creatinine 1.21 (0.70-1.30) mg/dL Est GFR ( Amer) >60 (>=60) Est GFR (Non-Af Amer) >60 (>=60) BUN/Creatinine Ratio 12.4 Glucose 108 H (74-106) mg/dL Calcium 8.8 (8.5-10.1) mg/dL Imaging Data Chest x-ray: Radiologist's impression: Procedure: XR chest 1V EXAM: XR chest 1V HISTORY: or right-sided chest pain COMPARISON: 09/16/2023 TECHNIQUE: Chest X-ray AP, 1 view FINDINGS: Support devices: None. Lungs/pleura: No consolidation, effusion, or pneumothorax. Heart and mediastinum: Normal contours. Bones: No acute abnormality identified. Impression: No radiographic evidence of acute cardiopulmonary process. Electronically authenticated by: JATIN TALAVERA Date: 09/30/2023 16:21 ECG Data Attestation: I personally reviewed and interpreted this ECG as follows: (EKG on my interpretation shows sinus rhythm with a rate of 75 and no acute changes.) Discharge Plan Discharge Chief Complaint: Upper Respiratory Infection Clinical Impression: Acute chest wall pain Patient Disposition: Home, Self-Care Time of Disposition Decision: 16:32 Condition: Good Mode of Transportation: Private Vehicle Prescriptions / Home Meds: No Action valacyclovir 1 gram tablet 1,000 mg PO DAILY [place] DM 7.5-7.5 mg/5 mL liquid 7.5 ml PO DAILY prednisone 20 mg tablet 20 mg PO DAILY azithromycin 250 mg tablet 250 mg PO DAILY 4 Days Qty: 4 0RF Rx Instructions: start on day 2 of therapy Instructions: Chest Wall Pain (ED) Additional Instructions: [id number] anti-inflammatories such as Motrin or Advil Stand Alone Forms: Portal Instructions Referrals: Physician,Non-Staff, MD [Primary Care Provider] - 1 week
[2023-09-30 16:03] LABS: Basophils Percent Auto 0.6 % (0.2-2.0); Eosinophils Absolute Auto 0.2 10^3/uL (0.0-0.7); Eosinophils Percent Auto 3.3 % (0.9-7.0); Hematocrit 41.1 % (42.0-54.0); Hemoglobin 14.6 g/dL (14.0-18.0); Immature Granulocytes Abs Auto 0.01 10^3/uL (0.00-0.03); Immature Granulocytes Pct Auto 0.2 % (0.0-0.5); Lymphocytes Absolute Auto 2.1 10^3/uL (1.2-3.8); Lymphocytes Percent Auto 40.7 % (20.5-60.0); Mean Corpuscular HGB Conc 35.5 g/dL (29.9-35.2); Mean Corpuscular Hemoglobin 32.3 pg (25.9-34.0); Mean Corpuscular Volume 90.9 fL (80.0-94.0); Mean Platelet Volume 10.6 fL (9.5-13.5); Monocytes Absolute Auto 0.6 10^3/uL (0.3-0.8); Monocytes Percent Auto 11.7 % (1.7-12.0); Neutrophils Absolute Auto 2.2 10^3/uL (1.4-6.5); Neutrophils Percent Auto 43.5 % (43.0-75.0); Platelet Count 245 10^3/uL (150-450); Red Blood Count 4.52 10^6/uL (4.70-6.10); White Blood Count 5.1 10^3/uL (4.0-11.0)
[2023-09-30 16:08] LABS: Anion Gap 13.7; BUN Creatinine Ratio 12.4; Calcium 8.8 mg/dL (8.5-10.1); Carbon Dioxide 27.3 mmol/L (21.0-32.0); Chloride 104 mmol/L (98-107); Estimated GFR (African America >60 (>=60); Estimated GFR (Non-African Ame >60 (>=60); Glucose 108 mg/dL (74-106); Sodium 141 mmol/L (136-145)
[2023-09-30 16:19] LABS: D Dimer <0.19 mg/L FEU (<=0.59)
== END 2023-09-30 16:42 | disposition home or self-care (01) ==
PROVIDERS: Emergency Provider Emergency Medicine
DX: R07.89 Other chest pain (principal); Z87.891 Personal history of nicotine dependence; Z87.01 Personal history of pneumonia (recurrent)
CPT/HCPCS: 36415; 71045; 80048; 85025; 85378; 93005; 99285

== ENCOUNTER 2023-10-13 09:01 | Outpatient (OUT) | payer OTHER, SELFPAY ==
--- NOTE | 2023-10-13 09:45 | CA_ITS ---
Patient Name: MANUELA CHAIDEZ MR#: [id number] : 1990 Exam Date: 10/13/2023 Ordering Doctor: SANTY OBRIEN STAFF NUCLEAR MEDICINE TECHNOLOGIST-Radha ECHOCARDIOGRAM REPORT PROCEDURE: CA ECHO DOPPLER COMPLETE INDICATIONS: Family h/o HOCM COMPARISON: None. DESCRIPTION: COMPLETE ECHOCARDIOGRAM Real-time transthoracic echocardiography with 2D, M-mode, spectral and color flow Doppler performed. QUALITY: Technical quality was good. 60 , 200#, BSA 2.07 m2 LEFT VENTRICLE: Normal chamber size. Borderline left ventricular hypertrophy. LV EF: Global left ventricular systolic function is normal; visually estimated ejection fraction is 55 to 60%. No wall motion abnormalities. DIASTOLIC: Normal diastolic function. ATRIAL SEPTUM: Inadequately seen. LEFT ATRIUM: Normal chamber size. RIGHT ATRIUM: Normal chamber size. RIGHT VENTRICLE: Normal chamber size. Normal right ventricular systolic function. TRICUSPID VALVE: Normal mobility and thickness. No stenosis with trivial regurgitation. No evidence of pulmonary hypertension. RVSP 20 mmHg MITRAL VALVE: Normal mobility and thickness. No evidence of mitral valve stenosis. There is no mitral annular calcification. Trivial mitral regurgitation. AORTIC VALVE: Normal trileaflet appearance. No visible sclerosis. Normal leaflet mobility. No evidence of aortic valve stenosis. No aortic regurgitation. AORTIC ROOT: Normal diameter and appearance. PULMONIC VALVE: Normal thickness and mobility. No stenosis. Trivial regurgitation. PERICARDIUM: No evidence of pericardial effusion. IVC: Collapses with inspirations. IVC is normal in size. CONCLUSION: 1. Global left ventricular systolic function is normal; visually estimated ejection fraction is 55 to 60% 2. Normal right ventricular size and systolic function 3. Borderline increase in left ventricular wall thickness 4. Normal diastolic function 5. The left atrium is normal in size 6. No significant valvular abnormalities Adult Echocardiography Procedure Report Left Ventricle LVEDD (3.7 - 5.6 cm): 5.09 cm LVESD (2.2 - 4.0 cm): 3.34 cm LVIVS thickness (0.6 - 1.2 cm): 1.15 cm LVPW thickness (0.5 - 1.0 cm): 1.08 cm e': 0.16 m/s E - e': 4.78 LVOT Max Gradient: 3.00 mm[Hg] LVOT Area (cm2): 0.87 m/s Peak Velocity (LVOT): 0.87 m/s Mean Velocity (LVOT): 0.51 m/s LVOT Diameter 2.53 cm Left Atrium LA Volume Index (2D A2C): 32.92 ml/m2 Left Atrium Systolic Dimension: 3.78 cm Mitral Valve MV E to A Ratio: 3.10 Mitral Valve A-Wave Peak Velocity: 0.24 m/s Mitral Valve E-Wave Peak Velocity: 0.76 m/s Right Ventricle Aorta AO Root Diam: 3.41 cm Ascending Ao Diam: 2.70 cm Aortic Valve AoV Area (Peak Madi): 5.04 cm2, 5.04 cm2 AoV Area (VTI): 4.44 cm2, 4.44 cm2 Peak Velocity(Antegrade Flow): 0.87 m/s Peak Gradient(Antegrade Flow): 3.00 mm[Hg] Mean Velocity(Antegrade Flow): 0.59 m/s Mean Gradient(Antegrade Flow): 1.52 mm[Hg] Velocity Time Integral: 19.53 cm Tricuspid Valve Peak Velocity (Regurgitant Flow): 2.89 m/s, 2.04 m/s Pulmonic Valve Peak Gradient: 4.78 mm[Hg], 5.05 mm[Hg] Right Atrium Right Atrium Systolic Pressure: 46.25 ml, 46.25 ml Dictated by: Ana Morris M.D. on 10/14/2023 at 12:30 Approved by: Ana Morris M.D. on 10/14/2023 at 12:39
--- NOTE | 2023-10-13 09:46 | CA_ITS ---
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1990 Requested By: Vero Stern Order Number: [id number] Reading MD: KATELYN DOVER Interpretive Statements Predominant rhythm is sinus with average rate of 71 bpm Tachycardia - max rate of 172 bpm (sinus tachycardia) Bradycardia - min rate of 41 bpm Ventricular ectopy 3 PVC Patient triggered events: 6 - associated with symptoms of SOB and palpitations - associated with HR of 118 bpm and remainder NSR Impression: Predominant rhythm is sinus with average rate of 71 bpm Fastest rate of 172 bpm (sinus tachycardia) and slowest rate of 41 bpm No atrial fibrillation No pauses or blocks Electronically Signed On 10-30-2023 11:54:01 EST by KATELYN DOVER
== END 2023-10-13 09:02 | disposition home or self-care (01) ==
LOC: CARD 09:02
PROVIDERS: Visit Provider Nurse Practitioner Family
DX: R00.2 Palpitations (principal); Z82.49 Family history of ischemic heart disease and other diseases of the circulatory system
CPT/HCPCS: 93242; 93306

== ENCOUNTER 2023-11-19 17:00 | Emergency (ER) | payer OTHER, SELFPAY ==
[2023-11-19 17:06] VITALS: BP 142/84; PULSE 82; RESP 16; TEMP 37.1; O2SAT 96; BMI 29.3
--- OUTSIDE RECORDS SUMMARY | 2023-11-19 17:14 | XMS_ITS | CCD ---
Author Name Unknown Address [address] [place] [address] Organization [facility] Care Team Providers Care Marketing Segment Manager Name Role Phone Unavailable Primary Care Provider UnavailREECE Burnett Attending Unavailable ANA, BEBETO Consulting Unavailable DR ADELE CORONEL Primary Care Unavailable ANA, BEBETO Attending Unavailable ANA, BEBETO Admitting Unavailable LEONA JACK Unavailable MAURER, RONEL Admitting Unavailable MAURER, RONEL Primary Care Unavailable MAURER, RONEL Attending Unavailable MAURER, RONEL Admitting Unavailable MAURER, RONEL Primary Care Unavailable MAURER, RONEL Consulting Unavailable MAURER, RONEL Attending Unavailable ANA, BEBETO Consulting Unavailable MAURER, RONEL Primary Care Unavailable ANA, BEBETO Attending Unavailable ANA, BEBETO Admitting Unavailable ELISEO PIERCE Consulting Unavailable Claire Rothman Unavailable La Nena Travis Unavailable NO FAMILY, PHYSICIAN Primary Care Provider Unava ilable RAQUEL Robertson Emergency Provider MD Mina Baez Attending Provider [phone] NO FAMILY, PHYSICIAN Primary Care Unavailable Mina Baez Admitting Unavailable Mina Baez Attending Unavailable NO FAMILY, PHYSICIAN Primary Care Unavailable Aracelis Robertson Admitting Unavailable Aracelis Robertson N Attending Unavailable NO FAMILY, PHYSICIAN Primary Care Unavailable Mina Baez Admitting Unavailable Mina Baez Attending Unavailable Mina Baez Admitting Unavailable Mina Baez Attending Unavailable NO FAMILY, PHYSICIAN Primary Care Unavailable Vero Stern Unavailable KATELYN DOVER Primary Care Physician [phone] VERO TOLLIVER Attending Unavailable Mina BAEZ Attending Unavailable Mina BAEZ Attending Unavailable Mina BAEZ Referring Unavailable Mina BAEZ Attending Unavailable Mina BAEZ Attending Unavailable Mina BAEZ Attending Unavailable CarlosJoelle Unavailable Allergies Allergy Classification Reported Allergen(s) Allergy Type Date of Onset Reaction(s) Facility (8 sources) Cefaclor; Translations: [cefaclor] Drug Allergy 2 [facility] Penicillins Allergy to substance 2 Nausea, [facility]aphylaxis [facility] Cefaclor; Translations: [Ceclor] Drug Allergy 3 [facility]ository (1 source) Penicillins Drug allergy (disorder) 3 [facility] Repository (7 sources) Penicillin G Drug Allergy [facility] [employer] Other (4 sources) Penicillin; Translations: [penicillin] Drug Allergy [facility] (2 sources) HYDROmorphone; Translations: [hydromorphone] Drug Allergy 3 [facility] (1 source) Cefaclor Drug Allergy 3 [facility] Repository (1 source) Penicillins Drug allergy (disorder) 3 [facility] Repository Medications Current Medications Medication Drug Class(es) Dates Sig (Normalized) Sig (Original) acetaminophen 500 mg oral tablet (2 sources) Start: 08-08-2023 take 2 tablets by mouth every four hours Acetaminophen (Tylenol Extra Strength) 500 mg Tablet Active 1000 MG PO Q4H August 08, 2023 12:00am Start: 08-08-2023 End: 08-08-2023 Acetaminophen (Tylenol) 325 mg Tablet Discontinued 650 MG PO As Directed August 08, 2023 12:00am August 08, 2023 2:32pm acetaminophen 325 mg / HYDROcodone bitartrate 5 mg oral tablet (4 sources) Opioid Agonist Start: 07-25-2023 End: 08-08-2023 take 1 tablet by mouth every four to six hours Hydrocodone-Acetaminophen Active 1 TAB PO EVERY 4-6 HOURS 7 3 August 08, 2023 acetaminophen 325 mg / oxyCODONE hydrochloride 5 mg oral tablet (1 source) Opioid Agonist Start: 07-19-2023 take 1 tablet by mouth every four to six hours Oxycodone-Acetaminophen (Percocet) 5-325 mg tablet Active 1 TAB PO EVERY 4-6 HOURS 12 July 19, 2023 [id number] 60 actuat albuterol 0.09 mg/actuat metered dose inhaler (5 sources) beta2-Adren ergic Agonist Start: 09-10-2023 take 2 puff(s) by inhalation every four to six hours as needed Albuterol Sulfate HFA 108 (90 Base) MCG/ACT 2 puffs as needed Inhalation every 4-6 hours for 30 days Aug, Active Start: 09-10-2023 take 2 puff(s) by in halation every four to six hours as needed Albuterol Sulfate HFA 108 (90 Base) MCG/ACT 2 puffs as needed Inhalation every 4-6 hours for 30 days Aug, Active ciprofloxacin 500 mg oral tablet (4 sources) Quinolone Antimicrobial Start: 07-25-2023 End: 08-08-2023 take 1 tablet by mouth every two hours Ciprofloxacin Hcl (Cipro) 500 mg tablet Active 500 MG PO Q12H August 08, 2023 12:00am administer dose at least 2 hrs before/6 hrs after dairy products, calcium, zinc, and/or iron-containing products dextromethorphan hydrobromide 15 mg / guaiFENesin 400 mg / pseudoephedrine hydrochloride 60 mg oral tablet (1 source) alpha-Adrenergic Agonist, Uncompetitive Q-xlmsav-U-asparta te Receptor Antagonist, Sigma-1 Agonist Start: 07-07-2023 take 4 tablets by mouth every twenty-four hours as needed Capmist DM 60-15-400 MG as needed Orally every 4-6 hours as needed, max 4 tablets in 24 hours for 5 days Jun, Active dextromethorphan hydrobromide 1.5 mg/ml / pyrilamine maleate 1.5 mg/ml oral solution (5 sources) Uncompetitive H-hotqgd-I-asparta te Receptor Antagonist, Sigma-1 Agonist Start: 09-10-2023 take 10 mL by mouth every eight hours [place] DM 7.5-7.5 MG/5ML 10 mL Orally every 8 hours for 5 days Aug, Active hydrOXYzine pamoate 25 mg oral capsule (1 source) Antihistamine Start: 08-02-2022 End: 08-12-2022 take 1 capsule by mouth three times daily hydrOXYzine pamoate (Vistaril) 25 mg capsule Indications: Anxiety about health Take 1 capsule (25 mg total) by mouth 3 (three) times a day if needed for itching for up to 10 days. 30 capsule 0 08/02/2022 08/12/2022 Active ibuprofen 800 mg oral tablet (1 source) Nonsteroidal Anti-inflammatory Drug Start: 07-07-2023 take 1 tablet by mouth three times daily at mealtime as needed Ibuprofen 800 MG 1 tablet with food or milk as needed Orally Three times a day for 7 days Jun, Active oxybutynin chloride 5 mg oral tablet (4 sources) Cholinergic Muscarinic Antagonist Start: 08-09-2023 take 1 tablet by mouth three times daily as needed oxybutynin 5 mg Tab 5 mg = 1 tab(s), Oral, TID, PRN for urinary discomfort, # 60 tab(s), Refills(s) 0, Pharmacy: [facility]/pharmacy #[id number], 175, cm, 07/25/23 9:08:00 EDT, Height/Length Dosing, 89.5, kg, 07/25/23 9:08:00 EDT, Weight Dosing Start Date: 08/09/23 Status: Ordered Start: 07-25-2023 End: 08-08-2023 take 5 mg by mouth twice daily Oxybutynin Chloride Dis continued 5 MG PO Twice daily 60 July 25, 2023 12:00am August 08, 2023 2:01pm predniSONE 20 mg oral tablet (6 sources) Start: 09-10-2023 take 1 tablet by mouth every twelve hours prednisone 20 MG 1 tablet Orally BID for 5 Aug, Active Start: 07-07-2023 take 1 tablet by ran th every twelve hours prednisone 20 MG 1 tablet Orally BID for 5 Jun, Active tamsulosin hydrochloride 0.4 mg oral capsule (5 sources) alpha-Adrenergic Feliberto Start: 07-19-2023 End: 08-08-2023 take 1 capsule by mouth once daily Flomax 0.4 mg Cap 0.4 mg = 1 cap(s), Oral, Daily, # 30 cap(s), Refills(s) 0, Pharmacy: [facility]/pharmacy #[id number], 175, cm, 07/25/23 9:08:00 EDT, Height/Length Dosing, 89.5, kg, 07/25/23 9:08:00 EDT, Weight Dosing Start Date: 08/09/23 Status: Ordered traZODone hydrochloride 100 mg oral tablet (5 sources) Serotonin Reuptake Inhibitor take 1 tablet by mouth every twenty-four hours traZODone HCl 100 MG 1 tablet at bedtime Orally Once a day for 90 days Active valACYclovir 1000 mg oral tablet (13 sources) Herpesvirus Nucleoside Analog DNA Polymerase Inhibitor, Herpes Simplex Virus Nucleoside Analog DNA Polymerase Inhibitor, Herpes Zoster Virus Nucleoside Analog DNA Polymerase Inhibitor Start: 07-25-2023 valacyclovir 1 g Tab Refills(s) 0 Start Date: 07/25/23 Status: Ordered Start: 07-19-2023 take 1 mg by mouth once daily Valacyclovir Active 1 MG PO Daily July 19, 2023 12:00am take 1 tablet by ran th every twenty-four hours valACYclovir HCl 500 MG 1 tablet Orally Once a day PRN Active Completed/Discontinued Medications Medication Drug Class(es) Dates Sig (Normalized) Sig (Original) methylPREDNISolone (7 sources) Corticosteroid Start: 03-11-2014 Depo-Medrol 80 mg February, 80 mg ondansetron 4 mg disintegrating oral tablet (10 sources) Serotonin-3 Receptor Antagonist Start: 07-19-2023 End: 08-08-2023 take 4 mg by mouth every eight hours Ondansetron Discontinued 4 MG PO Q8H 9 July 19, 2023 12:00am August 08, 2023 2:01pm Start: 05-23-2023 take 1 tablet by ran th every eight hours as needed for nausea Ondansetron 4 MG 1 tablet on the tongue and allow to dissolve Orally every 8 hours prn nausea/vomiting for 5 days Apr, Not-Taking Start: 12-25-2020 End: 07-19-2023 Ondansetron Hcl (Zofran) 4 m g tablet Discontinued 4 MG PO every 6 to 8 hours December 25, 2020 1:00am July 19, 2023 6:37pm pantoprazole 40 mg delayed release oral tablet (4 sources) Proton Pump Inhibitor Start: 12-25-2020 End: 07-19-2023 take 1 tablet by mouth once daily Pantoprazole (Protonix) 40 mg tablet,delayed release (DR/EC) Discontinued 40 MG PO Daily 14 December 25, 2020 1:00am July 19, 2023 6:37pm sucralfate 1000 mg oral tablet (4 sources) Aluminum Complex Start: 12-25-2020 End: 07-19-2023 take 1 tablet by mouth every six hours Sucralfate (Carafate) 1 gram tablet Discontinued 1 GM PO Q6H 56 December 25, 2020 1:00am July 19, 2023 6:37pm tiZANidine 2 mg oral tablet (4 sources) Central alpha-2 Adrenergic Agonist Start: 12-25-2020 End: 07-19-2023 take 2 mg by mouth once daily at bedtime Tizanidine Discontinued 2 MG PO Daily at bedtime December 25, 2020 1:00am July 19, 2023 6:38pm Problems Active Problems Problem Classification Problem Date Documented Date Episodic/Chronic Abdominal pain (4 sources) Epigastric pain; Translations: [Epigastric pain] 12-25-2020 Episodic Anxiety disorders (2 sources) Anxiety about body function or health; Translations: [Other specified anxiety disorders] Onset: 03-24-2022 Chronic Asthma (9 sources) Asthma; Translations: [Mild intermittent asthma] 07-25-2023 Chronic Calculus of urinary tract (14 sources) Ureteric stone; Translations: [Calculus of ureter] Onset: 07-19-2023 07-19-2023 Episodic Cardiac dysrhythmias (2 sources) Palpitations Episodic Fracture of upper limb (1 source) Fracture at wrist and/or hand level; Translations: [Hydronephrosis with renal and ureteral calculous obstruction] Onset: 07-25-2023 Episodic Immunizations and screening for infectious disease (1 source) Patient encounter status; Translations: [Encounter for screening for infections with a predominantly sexual mode of transmission] Episodic Intestinal infection (1 source) Viral intestinal infection, unspecified Episodic Nonspecific chest pain (1 source) Chest pain, unspecified; Translations: [CHEST PAIN UNSPECIFIED] Onset: 11-05-2022 Episodic Other and ill-defined heart disease (4 sources) Ventricular hypertrophy ; Translations: [Cardiomegaly] Chronic Other and ill-defined heart disease (1 source) Cardiomegaly Chronic Other diseases of kidney and ureters (3 sources) Hydronephrosis with renal and ureteral calculous obstruction; Translations: [Hydronephrosis with urinary obstruction due to ureteral calculus] 07-25-2023 Episodic Other lower respiratory disease (4 sources) Shortness of breath; Translations: [SHORTNESS OF BREATH] Onset: 11-04-2022 Episodic Other screening for suspected conditions (not mental disorders or infectious disease) (1 source) Other specified abnormal findings of blood chemistry Episodic Other upper respiratory infections (3 sources) Acute upper respiratory infection, unspecified; Translations: [Acute pharyngitis, unspecified] Onset: 03-24-2022 Episodic Poisoning by other medications and drugs (2 sources) Poisoning by unspecified drugs, medicaments and biological substances, accidental (unintentional), initial encounter; Translations: [Poisoning by unspecified drug or medicinal substance] Onset: 08-21-2022 Episodic Residual codes; unclassified (5 sources) Obstructive sleep apnea (adult) (pediatric); Translations: [OBSTRUCTIVE SLEEP APNEA] Onset: 12-01-2021 Chronic Residual codes; unclassified (5 sources) Obstructive sleep apnea syndrome; Translations: [Obstructive sleep apnea (adult) (pediatric)] Chronic Residual codes; unclassified (5 sources) Sleep disorder; Translations: [Sleep disorder, unspecified] Episodic Residual codes; unclassified (1 source) Sleep disorder, unspecified Episodic Residual codes; unclassified (2 sources) Family history of ischemic heart disease and other diseases of the circulatory system Episodic Substance-related disorders (1 source) Nicotine dependence, cigarettes, uncomplicated; Translations: [NICOTINE DEPEND CIGARETTES UNCOMP] Onset: 11-05-2022 Chronic Substance-related disorders (1 source) Other psychoactive substance use, unspecified, uncomplicated; Translations: [OTH PSYCHOACTIVE SBSTNC UNS UNCOMP] Onset: 11-05-2022 Episodic Unclassified (1 source) APPOINTMENT CANCELLED Unclassified (2 sources) COUGH, UNSPECIFIED; Translations: [COUGH, UNSPECIFIED] Onset: 03-24-2022 Unclassified (4 sources) CONTACT W/AND (SUSP) EXPOS COVID-19; Translations: [CONTACT W/AND (SUSP) EXPOS COVID-19] Onset: 12-21-2021 Viral infection (1 source) Viral disease; Translations: [Viral infection, unspecified] Episodic Past or Other Problems Problem Classification Problem Date Documented Da te Episodic/Chronic Unclassified (1 source) COUGH, UNSPECIFIED; Translations: [COUGH, UNSPECIFIED] Onset: 03-23-2022 Unclassified (1 source) CONTACT W/AND (SUSP) EXPOS COVID-19; Translations: [CONTACT W/AND (SUSP) EXPOS COVID-19] Onset: 12-17-2021 Unclassified (1 source) Suspected COVID-19 virus infection Z20.822 Results Test Name Value Interpretation Reference Range Facility [facility] 10-10-2023 Lab Reports [id number] [address]#[facility] Ambulatory Visit Summaryon 1 11-28-2022 Ambulatory Visit Summary MANUELA DAVILA :1990 Visit Date:09/27/2023 Ambulatory Visit Instructions Your Diagnosis Kidney stone Ureteral stone Tests Performed Urnls Dip Stick Auto w/o Microscopy POC 91134 Your Care Team Attending Physician - VERO TOLLIVER PA-C Primary Care Physician - KATELYN DOVER DO This Is Your Medications List Contact prescribing physician if questions or concerns valacyclovir (valacyclovir 1 g Tab) [Image Removed: STOP]Stop taking these medications oxybutynin (oxybutynin 5 mg Tab) tamsulosin (Flomax 0.4 mg Cap) Procedures Performed Cystoscopic laser lithotripsy of ureteric calculus (08/08/2023), Cystoscopic insertion of ureteric stent (07/25/2023), History of hernia repair, Tonsillectomy. Discharge Vitals Heart Rate (Peripheral) 65 Respiratory Rate 16 Blood Pressure 120/87 Height 175 cm Height 69 in Weight 89.5 kg Weight 196.9 lb BMI 29.22 What to do next Scheduled Follow-Up Appointments Tuesday 2:30 PM EDT With: NESTOR PERSON, Mina Nam Where: [facility] Patient Educationon 09-27-20 Patient Education Nephrology Dietary Guidelines to Help Prevent Kidney Stones Kidney stones are deposits of minerals and salts that form inside your kidneys. Your risk of developing kidney stones may be greater depending on your diet, your lifestyle, the medicines you take, and whether you have certain medical conditions. Most people can lower their risks of developing kidney stones by following these dietary guidelines. Your dietitian may give you more specific instructions depending on your overall health and the type of kidney stones you tend to develop. What are tips for following this plan? Reading food labels ? Choose foods with no salt added or low-salt labels. Limit your salt (sodium) intake to less than 1,500 mg a day. ? Choose foods with calcium for each meal and snack. Try to eat about 300 mg of calcium at each meal. Foods that contain 200?500 mg of calcium a serving include: ? 8 oz (237 mL) of milk, calcium-fortifiedno n-dairy milk, and calcium-fortifiedfr uit juice. Calcium-fortified means that calcium has been added to these drinks. ? 8 oz (237 mL) of kefir, yogurt, and soy yogurt. ? 4 oz (114 g) of tofu. ? 1 oz (28 g) of cheese. ? 1 cup (150 g) of dried figs. ? 1 cup (91 g) of cooked broccoli. ? One 3 oz (85 g) can of sardines or mackerel. Most people need 1,000?1,500 mg of calcium a day. Talk to your dietitian about how much calcium is recommended for you. Shopping ? Buy plenty of fresh fruits and vegetables. Most people do not need to avoid fruits and vegetables, even if these foods contain nutrients that may contribute to kidney stones. ? When shopping for convenience foods, choose: ? Whole pieces of fruit. ? Pre-made salads with dressing on the side. ? Low-fat fruit and yogurt smoothies. ? Avoid buying frozen meals or prepared deli foods. These can be high in sodium. ? Look for foods with live cultures, such as yogurt and kefir. ? Choose high-fiber grains, such as whole-wheat breads, oat bran, and wheat cereals. Cooking ? Do not add salt to food when cooking. Place a salt shaker on the table and allow each person to add their own salt to taste. ? Use vegetable protein, such as beans, textured vegetable protein (TVP), or tofu, instead of meat in pasta, casseroles, and soups. Meal planning ? Eat less salt, if told by your dietitian. To do this: ? Avoid eating processed or pre-made food. ? Avoid eating fast food. ? Eat less animal protein, including cheese, meat, poultry, or fish, if told by your dietitian. To do this: ? Limit the number of times you have meat, poultry, fish, or cheese each week. Eat a diet free of meat at least 2 days a week. ? Eat only one serving each day of meat, poultry, fish, or seafood. ? When you prepare animal proteins, cut pieces into small portion sizes. For most meat and fish, one serving is about the size of the palm of your hand. ? Eat at least five servings of fresh fruits and vegetables each day. To do this: ? Keep fruits and vegetables on hand for snacks. ? Eat one piece of fruit or a handful of berries with breakfast. ? Have a salad and fruit at lunch. ? Have two kinds of vegetables at dinner. ? You may be told to limit foods that are high in a substance called oxalate. These include: ? Spinach (cooked), rhubarb, beets, sweet potatoes, and [place] chard. ? Peanuts. ? Potato chips, nauruan fries, and baked potatoes with skin on. ? Nuts and nut products. ? Chocolate. ? If you regularly take a diuretic medicine, make sure to eat at least 1 or 2 servings of fruits or vegetables that are high in potassium each day. These include: ? Avocado. ? Banana. ? [place], prune, carrot, or tomato juice. ? Baked potato. ? Cabbage. ? Beans and split peas. Lifestyle ? Drink enough fluid to keep your urine pale yellow. This is the most important thing you can do. Spread your fluid intake throughout the day. ? If you drink alcohol: ? Limit how much you have to: ? 0?1 drink a day for women who are not . ? 0?2 drinks a day for men. ? Know how much alcohol is in your drink. In the [place] one drink equals one 12 oz bottle of beer (355 mL), one 5 oz glass of wine (148 mL), or one 1? oz glass of hard liquor (44 mL). ? Lose weight if told by your health care provider. Work with your dietitian to find an eating plan and weight loss strategies that work best for you. General information ? Talk to your health care provider and dietitian about taking daily supplements. Depending on your health and the cause of your kidney stones, you may be told: ? Do not take high-dose supplements of vitamin C (1,000 mg a day or more). ? To take a calcium supplement. ? To take a daily probiotic supplement. ? To take other supplements such as magnesium, fish oil, or vitamin B6. ? Take sgnj-xnd-uxrytut and prescription medicines only as told by your health care provider. These include supplements. What foods sh (more content not included)... Normal [facility] Office/Clinic Noteon 09-27-2023 Urology Office/Clinic Note Chief Complaint Review [facility] HPI Staff [facility] pt Last seen in our office by [facility] 07/25/23 DX: Ureteral & Renal Stone S/P Cysto Rt Stent Placement 07/25/23 & Laser Litho. Rt Stent Exchange & Stone Basket Extraction 08/08/23 String Stent removed in office 08/12/23 Stone Analysis 08/08/23 Pt is here today to review [facility] CMP 09/16/23 Pt does have f/u w/[facility] scheduled in January 2024 w/[facility]. Pt. not having any urinary issues at this time. History of Present Illness staff HPI reviewed and agree. Review of Systems PHQ Score Initial Depression Screen Score: 0 SCORE no fever, chills, malaise, myalgia. no rash/lesions. no chest pain, palpitations, or SOB. no abdominal pain, nausea, vomiting. no unilateral calf swelling, redness, pain Physical Exam Vitals & Measurements HR: 65(Peripheral) RR: 16 BP: 120/87 HT: 69 in HT: 175 cm WT: 89.5 kg WT: 196.9 lb BMI: 29.22 General: nontoxic, NAD Mouth: moist mucosa Lungs: normal respiratory effort Cardio: regular rate, good distal perfusion Abdomen: nondistended, no suprapubic distention or tenderness, no CVA tenderness Neurologic: Grossly normal Skin: No rashes or suspicious lesions Assessment/Plan Dr. Baez pt 1. Kidney stone (N20.0: Calculus of kidney) KUB 10/02/23 - A tiny stone overlying the R L2 transverse process measuring 3mm. R renal stone. S/p Cysto/R RGP/R stent placement 07/25/23. S/p Cysto/R stent removal/R URS/laser ablation/basket extraction/R string stent placement 08/08/23. Removed string stent IO 08/12/23. KUB 08/08/23 [facility] - A tiny stone at proximal R ureter just above L2 transverse process. Stone analysis 08/08/23 - 60% CaOx Di, 35% CaOx mono, 5% Hydroxyapatite. Met w/u 08/27/23 - low urine citrate and sodium; high urine uric acid, phosphorus, ammonium, and urea nitrogen. Discussed [facility]ink results. Advised pt he has slightly low volume of urine for a stone former, recommended increase 0.5-1L. Also has markedly low citrate.Offered supplement vs add 3oz lemon daily. Pt prefers to do the latter. 2. Ureteral stone (N20.1: Calculus of ureter) See #1. Follow-up With When Contact Information UNRULY GARDNER, VERO Urbina, URL [address] [place] [address] [phone] Additional Instructions: has f/u with [facility] 02/14/2024 Patient Education Dietary Guidelines to Help Prevent Kidney Stones Documentation recorded by the angel Lind accurately reflects the services(s) I performed and decisions made by me. Authenticated by Vero Tolliver PA-C on 09/27/2023 12:27:44. ICarissa, personally scribed for Vero Tolliver PA-C on 09/27/2023 12:17:10. . Problem List/Past Medical History Ongoing Asthma Kidney stone Ureteral stone Historical No qualifying data Procedure/Surgical History Cystoscopic laser lithotripsy of ureteric calculus (08/08/2023), Cystoscopic insertion of ureteric stent (07/25/2023), History of hernia repair, Tonsillectomy. Medications Flomax 0.4 mg Cap, 0.4 mg= 1 cap(s), Oral, Daily oxybutynin 5 mg Tab, 5 mg= 1 tab(s), Oral, TID, PRN valacyclovir 1 g Tab Allergies Ceclor penicillin Social History Tobacco Former smoker, quit more than 30 days ago Tobacco Use:. Never Smokeless Tobacco Use:. Cigarettes, Yes, 07/25/2023 Lab Results Ambulatory Point of Care Results Bilirubin Urine Dipstick: Negative (09/27/23 11:30:00) Blood Urine Dipstick: Negative (09/27/23 11:30:00) Glucose Urine Dipstick: Negative (09/27/23 11:30:00) Ketones Urine Dipstick: Negative (09/27/23 11:30:00) Leukocytes Urine Dipstick: Negative (09/27/23 11:30:00) Nitrite Urine Dipstick: Negative (09/27/23 11:30:00) Protein Urine Dipstick: Negative (09/27/23 11:30:00) Specific [place] Urine Dipstick: 1.020 (09/27/23 11:30:00) Urine Appearance Urine Dipstick: Clear (09/27/23 11:30:00) Urine Color Urine Dipstick: Yellow (09/27/23 11:30:00) Urobilinogen Urine Dipstick: Normal 0.2-1 EU/dl (09/27/23 11:30:00) pH Urine Dipstick: 6 (09/27/23 11:30:00) [facility] Comment on above: Result Comment: Elec tronically Signed By: VERO TOLLIVER PA-C\.br\Date and Time Signed: 09/27/23 12:27 EST\.br\Electronically Co-Signed By: Carissa Lind\.br\Date and Time Co-Signed: 09/27/23 12:17 EST [facility] 09-01-2023 Lab Reports [id number] [facility] 08-18-2023 Lab Reports [id number] 12#1.00TIFF [facility] Formson 08-16-2023 Forms [id number] 73#1.00TIFF Normal [facility] Pathology Noteon 08-12-2023 Pathology Note [id number] DB#1.00TIFF Normal [facility] Operative Reporton 3 Operative Report [id number] A0#1.00TIFF Normal [facility] RAD - MISCon 08-09-2023 RAD - MISC [id number] 25#1.00TIFF Normal [facility] [id number] E8#1.00TIFF Normal [facility] Calculi, Urinaryon 3 Ca Oxalate Dihydrate 60 % Normal . [facility] Comment on above: Performed By: #### C ALCULI #### [facility] , Ca Oxalate Monohydrate 35 % Normal . [facility] Comment on above: Performed By: #### C ALCULI #### [facility] , Color (U) Brown Normal . [facility] Comment on above: Performed By: #### C ALCULI #### [facility] , Comment1 Normal . [facility] Comment on above: Result Comment: Calc ium phosphate (hydroxyl form) includes hydroxyapatite, amorphous calcium phosphate, and whitlockite. Hydroxyapatite is the most common of the calcium phosphate salts found in human kidney stones. Performed By: #### C ALCULI #### [facility] , Comment: Normal . [facility] Comment on above: Result Comment: Montez meyer questions regarding Calculi Analysis contact [email or web address] at: [phone]. Performed By: #### C ALCULI #### [facility] , Composition Normal . [facility] Comment on above: Result Comment: Perc entage (Represents the % composition) Performed By: #### C ALCULI #### [facility] , Disclaimer: Normal . [facility] Comment on above: Result Comment: This test was developed and its performance characteristics determined by [facility]. It has not been cleared or approved by the Food and Drug Administration. Performed at: [facility] [address] [id number] Type Cutter: Coleman Vargas PhD, Phone: [phone] Performed By: #### C ALCULI #### [facility] , Hydroxyapatite 5 % Normal . [facility] Comment on above: Performed By: #### C ALCULI #### [facility] , Note Normal . [facility] Comment on above: Result Comment: Calc jodi report will follow via computer, mail or assistive technology trainer delivery. PERFORMED BY: [place] [id number] PATHOLOGIST SCARFER DONTE WHITAKER M.D. Performed By: #### C ALCULI #### [facility] , Photo Normal . [facility] Comment on above: Result Comment: Phot ograph will follow under a separate cover Performed By: #### C ALCULI #### [facility] , Size 4x3 Normal . [facility] Comment on above: Result Comment: Mult iple pieces received. Dimensions of the largest piece reported. Performed By: #### C ALCULI #### [facility] , Source Normal . [facility] Comment on above: Result Comment: Righ t Kidney Performed By: #### C ALCULI #### [facility] , Weight 28 Normal . [facility] Comment on above: Performed By: #### C ALCULI #### [facility] , [place] urethrocystogram retroon 08-08-2023 [place] urethrocystogram retro [facility] Main [address] [address] Fluoroscopy Report Signed Patient: Manuela Davila MR#: [id number] : 1990 Acct:[id number] Age/Sex: 32 / M ADM Date: 08/08/23 Loc: IN Room: Type: [facility] Attending Dr: Mina Baez MD Copies to: Mina Baez MD Ordering Provider: Mina Baez MD Date of Service: 08/08/23 FL/FL urethrocystogram retro: 2 [place] urethrocystogram retro 08/08/2023 4:53 PM SIGNS AND SYMPTOMS: Preop right ureteral stent removal PROTOCOL: Intraoperative views of the abdomen and pelvis COMPARISON: 07/25/2023 FINDINGS: A right-sided ureteral stent is present. There is a tiny stone along the proximal right ureter. Images demonstrate removal of a stone and placement of a right-sided ureteral stent. Cumulative Air Kerma in mGy: 22 mGy FL/FL urethrocystogram retro IMPRESSION: A right-sided ureteral stent is present. There is a tiny stone along the proximal right ureter. Images demonstrate removal of a stone and placement of a right-sided ureteral stent. Impression dictated by: Elvira Ramos M.D.08/08/2023 4:54 PM Dictation Location: [place] [address] Transcribed By: [facility] 08/08/231653 Dictated By: Elvira Ramos II, MD 08/08/231650 Signed By: 08/08/231653 [facility] 08-08-2023 L Specimen: [id number] Received: 08/09/23 Status: MARGARET Vega Num: [id number] Spec Type: Surgical Subm Dr: Mina Baez MD Tissues: A Urinary Calculus (RT KIDNEY STONE) Procedures: Level 1 Gross Age/ Patient Sex Location Account Attending Physician Manuela Davila 32/M [place] [id number] Mina Baez MD SPEC NUM: [id number] RECD: 08/09/23 STATUS: MARGARET VEGA NUM: [id number] IRINA: 08/08/231555 [facility] DR: Mina Baez MD ENTERED: 08/09/[address] [facility] [address]: ALVARO TYPE: Surgical DEPT: S ORDERED: Level 1 Gross ORDERED: Level 1 Gross Pathological Diagnosis Right kidney stone: - Gross examination only, see the gross description Clinical Information Kidney stone Gross Description Received fresh labeled with the patient's name, date of and right kidney stone are two brown stones measuring 0.4 x 0.2 x 0.2 cm and 0.5 x 0.4 x 0.3 cm. Entirely submitted for chemical analysis. Gross examination only. CPT Codes 71077 Specimen: [id number] Received: 08/09/23 Status: MARGARET Silvia Num: [id number] Spec Type: Surgical Subm Dr: Mina Baez MD Tissues: A Urinary Calculus (RT KIDNEY STONE) Procedures: Level 1 Gross Patient: Manuela Davila [id number] (Continued) Signed (signatur e on file) Kevin Rodríguez MD 08/10/23 1348 Normal [facility] XR KUBon 08-08-2023 XR KUB [address] [address] XRay Report Signed Patient: Manuela Davila MR#: [id number] : 1990 Acct:[id number] Age/Sex: 32 / M ADM Date: 08/08/23 Loc: IN Room: Type: [facility] Attending Dr: Mina Baez MD Copies to: Mina Baez MD Ordering Provider: Mina Baez MD Date of Service: 08/08/23 XR/XR KUB: Ureteral Stone, Kidney stone KUB: COMPARISON: 07/25/2023 CLINICAL DATA: Preop for cystoscopy and removal of right internal ureteral stent and proximal ureteral stone. Supine views of the abdomen and pelvis were obtained. A right internal ureteral stent is visualized. There is still a suspected tiny stone at the proximal right ureter just above the L2 transverse process. There is bowel gas and stool overlying the kidneys. No obvious renal stones are noted. No soft tissue masses are seen. There is air and stool within the colon. The small bowel loops are not dilated. There is subtle levoscoliotic curvature. XR/XR KUB IMPRESSION: RIGHT INTERNAL URETERAL STENT AND SUSPECTED TINY RESIDUAL PROXIMAL RIGHT URETERAL STONE. Impression dictated by: Leticia Gee M.D.08/08/2023 3:07 PM Dictation Location: [place] [address] Transcribed By: [facility] 08/08/23 1507 Dictated By: Leticia Gee MD 08/08/23 1504 Signed By: 08/08/23 1507 [facility] Insurance Correspondenceon 1 Insurance Correspondence [id number] 997#1.00TIFF Normal [facility] RAD - MISCon 08-01-2023 RAD - MISC [id number] 9C#1.00TIFF Normal [facility] RAD - MISCon 07-27-2023 RAD - MISC [id number] 65#1.00CD:127 Normal [facility] [place] urethrocystogram retroon 07-26-2023 [place] urethrocystogram retro [facility] [place] [address] Fluoroscopy Report Signed Patient: Manuela Davila MR#: [id number] : 1990 Acct:[id number] Age/Sex: 32 / M ADM Date: 07/25/23 Loc: IN Room: Type: [facility] Attending Dr: Mina Baez MD Copies to: Mina Baez MD Ordering Provider: Mina Baez MD Date of Service: 07/25/23 FL/FL urethrocystogram retro: 2 Fluoroscopy retrograde right pyelogram HISTORY: Right proximal ureteral stone. 12 image was obtained. Cumulative Air Kerma in mGy: 25 mGy The right ureteral stent placed. FL/FL urethrocystogram retro IMPRESSION: Right ureteral stent placement Impression dictated by: Dutch Nuñez M.D.07/26/2023 9:28 AM Dictation Location: [place] [address] Transcribed By: [facility] 07/26/23927 Dictated By: Dutch Nuñez DO 07/26/23926 Signed By: 07/26/23927 [facility] Operative Reporton Operative Report [id number] 94#1.00CD:127 Normal [facility] Ambulatory Visit Summaryon 1 Ambulatory Visit Summary MANUELA DAVILA :1990 Visit Date:07/25/2023 Ambulatory Visit Instructions Your Diagnosis Ureteral stone Tests Performed Urnls Dip Stick Auto w/o Microscopy POC 87447 Your Care Team Attending Physician - Mina BAEZ MD This Is Your Medications List Contact prescribing physician if questions or concerns valacyclovir (valacyclovir 1 g Tab) Procedures Performed History of hernia repair, Tonsillectomy. Discharge Vitals Heart Rate (Peripheral) 80 Blood Pressure 134/82 Height 175 cm Height 69 in Weight 89.5 kg Weight 196.9 lb BMI 29.22 What to do next You Need to Schedule the Following Appointments Follow Up with Mina BAEZ MD, URL When: Where: [address] [place] [address] [address] [place] [address]- Medications What When Instructions Unchanged valacyclovir (valacyclovir 1 g Tab) Contact prescribing physician if questions or concerns Test Results Urnls Dip Stick Auto w/o Microscopy POC 50011 (07/25/2023) Bilirubin Urine Dipstick - Negative Blood Urine Dipstick - Trace-lysed Glucose Urine Dipstick - Negative Ketones Urine Dipstick - Negative Leukocytes Urine Dipstick - Negative Nitrite Urine Dipstick - Negative Protein Urine Dipstick - Negative Specific Pierson Urine Dipstick - >=1.030 Urine Appearance Urine Dipstick - Clear Urine Color Urine Dipstick - Yellow Urobilinogen Urine Dipstick - Normal 0.2-1 EU/dl pH Urine Dipstick - 5 Allergies Ceclor penicillin Problems Ongoing - Any problem that you are currently receiving treatment for. Asthma Ureteral stone Education Materials Dietary Guidelines to Help Prevent Kidney Stones Kidney stones are deposits of minerals and salts that form inside your kidneys. Your risk of developing kidney stones may be greater depending on your diet, your lifestyle, the medicines you take, and whether you have certain medical conditions. Most people can lower their chances of developing kidney stones by following the instructions below. Your dietitian may give you more specific instructions depending on your overall health and the type of kidney stones you tend to develop. What are tips for following this plan? Reading food labels ? Choose foods with no salt added or low-salt labels. Limit your salt (sodium) intake to less than 1,500 mg a day. ? Choose foods with calcium for each meal and snack. Try to eat about 300 mg of calcium at each meal. Foods that contain 200?500 mg of calcium a serving include: ? 8 oz (237 mL) of milk, calcium-fortifiedno n-dairy milk, and calcium-fortifiedfr uit juice. Calcium-fortified means that calcium has been added to these drinks. ? 8 oz (237 mL) of kefir, yogurt, and soy yogurt. ? 4 oz (114 g) of tofu. ? 1 oz (28 g) of cheese. ? 1 cup (150 g) of dried figs. ? 1 cup (91 g) of cooked broccoli. ? One 3 oz (85 g) can of sardines or mackerel. Most people need 1,000?1,500 mg of calcium a day. Talk to your dietitian about how much calcium is recommended for you. Shopping ? Buy plenty of fresh fruits and vegetables. Most people do not need to avoid fruits and vegetables, even if these foods contain nutrients that may contribute to kidney stones. ? When shopping for convenience foods, choose: ? Whole pieces of fruit. ? Pre-made salads with dressing on the side. ? Low-fat fruit and yogurt smoothies. ? Avoid buying frozen meals or prepared deli foods. These can be high in sodium. ? Look for foods with live cultures, such as yogurt and kefir. ? Choose high-fiber grains, such as whole-wheat breads, oat bran, and wheat cereals. Cooking ? Do not add salt to food when cooking. Place a salt shaker on the table and allow each person to add his or her own salt to taste. ? Use vegetable protein, such as beans, textured vegetable protein (TVP), or tofu, instead of meat in pasta, casseroles, and soups. Meal planning ? Eat less salt, if told by your dietitian. To do this: ? Avoid eating processed or pre-made food. ? Avoid eating fast food. ? Eat less animal protein, including cheese, meat, poultry, or fish, if told by your dietitian. To do this: ? Limit the number of times you have meat, poultry, fish, or cheese each week. Eat a diet free of meat at least 2 days a week. ? Eat only one serving each day of meat, poultry, fish, or seafood. ? When you prepare animal protein, cut pieces into small portion sizes. For most meat and fish, one serving is about the size of the palm of your hand. ? Eat at least five servings of fresh fruits and vegetables each day. To do this: ? Keep fruits and vegetables on hand for snacks. ? Eat one piece of fruit or a handful of berries with breakfast. ? Have a salad and fruit at lunch. ? Have two kinds of vegetables at dinner. ? Limit foods that are high in a substance called oxalate. These include: (more content not included)... [facility] ED Note-Physicianon 07-25-20 ED Note-Physician [id number] 69#1.00CD:127 Normal [facility] Formson 07-25-2023 Forms [id number] #1.00CD:127 Normal [facility] Patient Educationon 07-25-20 Patient Education Nephrology Dietary Guidelines to Help Prevent Kidney Stones Kidney stones are deposits of minerals and salts that form inside your kidneys. Your risk of developing kidney stones may be greater depending on your diet, your lifestyle, the medicines you take, and whether you have certain medical conditions. Most people can lower their chances of developing kidney stones by following the instructions below. Your dietitian may give you more specific instructions depending on your overall health and the type of kidney stones you tend to develop. What are tips for following this plan? Reading food labels ? Choose foods with no salt added or low-salt labels. Limit your salt (sodium) intake to less than 1,500 mg a day. ? Choose foods with calcium for each meal and snack. Try to eat about 300 mg of calcium at each meal. Foods that contain 200?500 mg of calcium a serving include: ? 8 oz (237 mL) of milk, calcium-fortifiedno n-dairy milk, and calcium-fortifiedfr uit juice. Calcium-fortified means that calcium has been added to these drinks. ? 8 oz (237 mL) of kefir, yogurt, and soy yogurt. ? 4 oz (114 g) of tofu. ? 1 oz (28 g) of cheese. ? 1 cup (150 g) of dried figs. ? 1 cup (91 g) of cooked broccoli. ? One 3 oz (85 g) can of sardines or mackerel. Most people need 1,000?1,500 mg of calcium a day. Talk to your dietitian about how much calcium is recommended for you. Shopping ? Buy plenty of fresh fruits and vegetables. Most people do not need to avoid fruits and vegetables, even if these foods contain nutrients that may contribute to kidney stones. ? When shopping for convenience foods, choose: ? Whole pieces of fruit. ? Pre-made salads with dressing on the side. ? Low-fat fruit and yogurt smoothies. ? Avoid buying frozen meals or prepared deli foods. These can be high in sodium. ? Look for foods with live cultures, such as yogurt and kefir. ? Choose high-fiber grains, such as whole-wheat breads, oat bran, and wheat cereals. Cooking ? Do not add salt to food when cooking. Place a salt shaker on the table and allow each person to add his or her own salt to taste. ? Use vegetable protein, such as beans, textured vegetable protein (TVP), or tofu, instead of meat in pasta, casseroles, and soups. Meal planning ? Eat less salt, if told by your dietitian. To do this: ? Avoid eating processed or pre-made food. ? Avoid eating fast food. ? Eat less animal protein, including cheese, meat, poultry, or fish, if told by your dietitian. To do this: ? Limit the number of times you have meat, poultry, fish, or cheese each week. Eat a diet free of meat at least 2 days a week. ? Eat only one serving each day of meat, poultry, fish, or seafood. ? When you prepare animal protein, cut pieces into small portion sizes. For most meat and fish, one serving is about the size of the palm of your hand. ? Eat at least five servings of fresh fruits and vegetables each day. To do this: ? Keep fruits and vegetables on hand for snacks. ? Eat one piece of fruit or a handful of berries with breakfast. ? Have a salad and fruit at lunch. ? Have two kinds of vegetables at dinner. ? Limit foods that are high in a substance called oxalate. These include: ? Spinach (cooked), rhubarb, beets, sweet potatoes, and [place]ican chard. ? Peanuts. ? Potato chips, nauruan fries, and baked potatoes with skin on. ? Nuts and nut products. ? Chocolate. ? If you regularly take a diuretic medicine, make sure to eat at least 1 or 2 servings of fruits or vegetables that are high in potassium each day. These include: ? Avocado. ? Banana. ? [place], prune, carrot, or tomato juice. ? Baked potato. ? Cabbage. ? Beans and split peas. Lifestyle ? Drink enough fluid to keep your urine pale yellow. This is the most important thing you can do. Spread your fluid intake throughout the day. ? If you drink alcohol: ? Limit how much you use to: ? 0?1 drink a day for women who are not . ? 0?2 drinks a day for men. ? Be aware of how much alcohol is in your drink. In the [place] one drink equals one 12 oz bottle of beer (355 mL), one 5 oz glass of wine (148 mL), or one 1? oz glass of hard liquor (44 mL). ? Lose weight if told by your health care provider. Work with your dietitian to find an eating plan and weight loss strategies that work best for you. General information ? Talk to your health care provider and dietitian about taking daily supplements. You may be told the following depending on your health and the cause of your kidney stones: ? Not to take supplements with vitamin C. ? To take a calcium supplement. ? To take a daily probiotic supplement. ? To take other supplements such as magnesium, fish oil, or vitamin B6. ? Take ulun-mop-ubzjafo and prescription medicines only as told by your health care provider. These include supplements. What foods should I limit? Limit your in (more content not included)... Normal [facility] RAD - MISCon 07-25-2023 [facility] [id number] 80#1.00CD:127 Normal [facility] Urology Office/Clinic Noteon 07-25-2023 Urology Office/Clinic Note Chief Complaint Pt is here for [facility] f/u HPI Staff Manuela is a 32 y.o. male here for [facility] follow up for kidney stones w/ KUB. Pt presented to [facility] on 07/19/[address] for [address] flank pain. CT done on 07/19/23 showed 4mm stone in the proximal RT ureter distal to the RT UPJ, right sided hydronephrosis, nonobstructing renal RT stone. Pt states this is his first kidney stone. KUB done 07/25/23 only image available. Dysuria: denies Incomplete bladder emptying: denies Hematuria: denies Frequency: denies Urgency: denies Nocturia: 1x a night Stream: steady stream Leaking: denies Post void dripping: denies Wearing pads/ Depends: denies Urge incontinence: denies Stress incontinence: denies Incontinence without Sensory Awareness: denies Abdominal pain: RT abdominal pain Flank pain: RT side flank pain Sexual complaints: _ History of Present Illness Tests reviewed: reviewed UA and External Records. I have reviewed the previous health record information and history for this patient from External Provider. I have reviewed and verified the staff HPI to be accurate for this encounter. There have been no associated fever, chills, flank pain, or blood in the urine. Denies any urinary infections since last encounter. Review of Systems PHQ Score Initial Depression Screen Score: 0 ROS - Provider Constitutional: denies weight loss, denies hot flashes. Eyes: denies eye problems. Gastrointestinal: denies nausea, denies vomiting. Cardiovascular: denies chest pain or angina. Integumentary: no dryness Musculoskeletal: denies musculoskeletal symptoms. ENMT: denies otolaryngeal symptoms. Respiratory: no shortness of breath. Heme/Lymph: denies easy bleeding tendency, denies easy bruising tendency. Psychiatric: no confusion, no anxiety. Genitourinary: See HPI. Physical Exam Vitals & Measurements HR: 80(Peripheral) BP: 134/82 HT: 69 in HT: 175 cm WT: 89.5 kg WT: 196.9 lb BMI: 29.22 General Appearance: alert, no distress, well nourished, well developed male. Head: normocephalic . Eyes: normal orbit and globe. ENMT: normal examination of external ears. Chest: Lungs CTA, respirations non labored. Cardiovascular: regular rate and rhythm. Abdomen: soft, non distended, no tenderness, no mass or organomegaly, no hernia. Genitourinary: normal scrotum, normal testes, normal urethra, normal epididymis, normal vas deferens/spermatic cord. Flank Pain: moderate. Bladder: nonpalpable. Penis: normal shaft, normal glans. Lymph Nodes: unremarkable palpation of the cervical area. Skin: warm, dry, no bruising. Psychiatric: cooperative, affect appropriate for age, normal judgement, euthymic mood. Assessment/Plan 1. Ureteral stone (N20.1: Calculus of ureter) Pt presented to [facility] on 07/19/[address] for RT flank pain. CT done on 07/19/23 showed 4mm stone in the proximal RT ureter distal to the RT UPJ, right sided hydronephrosis, nonobstructing renal RT stone. KUB done 07/25/23 - upon personal review, stone is unchanged. Pt states this is his first kidney stone. Pt is currently having flank pain. UA today shows trace-lysed blood and no signs of infection. Reviewed KUB findings with pt. Discussed scheduling him for a stone removal today. Educated pt on signs of kidney stone. Advised pt that he has not passed this stone. -Will schedule Cysto with retro Stent Placement w/pos ureteroscopy. The procedure risks, benefits, details, and treatment alternatives have been discussed. These include the need for additional procedures, bleeding, infection, injury to the ureter, moderate to severe bladder irritation from the stent (with frequent urination, urgency, urinary leakage), moderate flank discomfort, among others. Stent removal or changes may also be required in the future. Full informed consent has been obtained. Will order General anesthesia. 2. Renal stone, right Overall this patient has been dealing with a right upper ureteral stone for about 1 week with continued intermittent pain and nausea. He continues to take Zofran. He wants intervention. Due to his failure to pass the stone, failure to intervene now puts his kidney at risk for loss of function over time. He agrees with recommendation for cystoscopy and retrograde pyelogram and a right double-J stent with the possibility of ureteroscopy if the stone has traveled distally. According to the previous CT scan report and my viewing of the current KUB, the stone is not moved and seems to reside at about L3. He agrees with the stent placement and knows this may be a staged procedure. Eventual plan may be for either ESWL versus a retrograde ureteroscopic holmium laser ablation approach. He agrees with the plan. We will get the case on this afternoon if possible Follow-up With When Contact Information Mina BAEZ MD, URL [address] [address]- Additional Instructions: Sched Cysto with retro Stent Placement w/pos ureteroscopy [place] (more content not included)... Normal [facility] Comment on above: Result Comment: Elec tronically Signed By: Mina BAEZ MD\.br\Date and Time Signed: 07/25/23 09:50 EDT\.br\Electronically Co-Signed By: Lala Galvan\.br\Date and Time Co-Signed: 07/25/23 09:35 EDT XR KUBon 07-25-2023 XR [facility] [facility] Main [address] [address] XRay Report Signed Patient: Manuela Davila MR#: [id number] : 1990 Acct:[id number] Age/Sex: 32 / M ADM Date: 07/25/23 Loc: [place] Room: Type: [facility] Attending Dr: Mina Baez MD Copies to: Mina Baez MD Ordering Provider: Mina Baez MD Date of Service: 07/25/23 XR/XR KUB: Ureteral Stone, Kidney stone KUB: COMPARISON: 07/25/2023 CLINICAL DATA: Preop for cystoscopy. Right ureteral stone. Supine views of the abdomen and pelvis were obtained. There is air and stool within the colon. The kidneys are obscured. The proximal right ureteral stone is again seen and is unchanged. No additional stones are noted. No soft tissue masses are seen. The bony structures are intact. XR/XR KUB IMPRESSION: PROXIMAL RIGHT URETERAL STONE, SIMILAR TO THE PRIOR. Impression dictated by: Leticia Gee M.D.07/25/2023 4:58 PM Dictation Location: [place] [address] Transcribed By: [facility] 07/25/231657 Dictated By: Leticia Gee MD 07/25/231653 Signed By: 07/25/23 1658 Normal [facility] XR KUB [facility] Main [address] [address] XRay Report Signed Patient: Manuela Davila MR#: [id number] : 1990 Acct:[id number] Age/Sex: 32 / M ADM Date: 07/25/23 Loc: XD Room: Type: [facility] Attending Dr: Mina Baez MD Copies to: Mina Baez MD Ordering Provider: Mina Baez MD Date of Service: 07/25/23 XR/XR KUB: N20.0 KUB: COMPARISON: CT 07/19/2023 CLINICAL DATA: Follow-up right renal and proximal ureteral stones. Supine views of the abdomen and pelvis were obtained. There is air within nondistended small and large bowel loops. There is also colonic stool, greater on the right. Both kidneys are partially obscured. The right renal stone on comparison CT is not obvious. There is a tiny stone overlying the right L2 transverse process measuring 3 mm which correlates with the comparison and is not thought to have significantly changed in location. Left pelvic phleboliths are seen. There are no soft tissue masses. There is slight levoscoliotic curvature. XR/XR KUB IMPRESSION: SLIGHT LIMITED STUDY DUE TO BOWEL GAS AND STOOL. PERSISTENT RIGHT PROXIMAL URETERAL STONE. Impression dictated by: Leticia Gee M.D.07/25/2023 12:49 PM Dictation Location: [place] [address] Transcribed By: MONIKA 07/25/23 1249 Dictated By: Leticia Gee MD 07/25/23 1246 Signed By: 07/25/23 1249 Normal [facility] Alanine aminotransferase [En zymatic activity/volume] in Serum or PlasmaOrdered By: Aracelis Robertson on 07-19-2023 ALT [Catalytic activity/Vol] 54 U/L 7-52 [facility] Albumin [Mass/volume] in Ser um or Plasma by Bromocresol green (BCG) dye binding methoOrdered By: Aracelis Robertson on 07-19-2023 Albumin BCG dye [Mass/Vol] 4.8 g/dL 3.5-5.7 [facility] Alkaline phosphatase [Enzyma tic activity/volume] in Serum or PlasmaOrdered By: Aracelis Robertson on 07-19-2023 ALP [Catalytic activity/Vol] 55 U/L 34-104 [facility] Aspartate aminotransferase [ Enzymatic activity/volume] in Serum or PlasmaOrdered By: Aracelis Robertson on 07-19-2023 AST [Catalytic activity/Vol] 21 U/L 13-39 [facility] Automated erythrocytes count in urine sediment (number/area)Ordered By: PROVIDER TEMP on 07-19-2023 RBC Auto (Urine sed) [#/Area] Innumerable [HPF] 0-4 [facility] Automated leukocytes count i n urine sediment (number/area)Ordered By: PROVIDER TEMP on 07-19-2023 WBC Auto (Urine sed) [#/Area] 1-2 [HPF] 0-4 [facility] Basic Metabolic Panelon 06-25 Anion gap [Moles/Vol] 10.5 mmol/L Normal 6.0-15.0 [facility] Comment on above: Performed By: #### H EPATIC, CBC, LIPASE, BMP #### [facility] [address] Calcium [Mass/Vol] 10.2 mg/dL Normal 8.6-10.3 [facility] Comment on above: Performed By: #### H EPATIC, CBC, LIPASE, BMP #### [facility] [address] Chloride [Moles/Vol] 103 mmol/L Normal 98-107 [facility] Comment on above: Performed By: #### H EPATIC, CBC, LIPASE, BMP #### [facility] [address] CO2 [Moles/Vol] 29.2 mmol/L Normal 21.0-31.0 [facility] Comment on above: Performed By: #### H EPATIC, CBC, LIPASE, BMP #### [facility] [address] Creatinine [Mass/Vol] 0.99 mg/dL Normal 0.70-1.30 [facility] Comment on above: Performed By: #### H EPATIC, CBC, LIPASE, BMP #### [facility] [address] [place] [address] [place] Creatinine Clr Calc Pharmacy 115.43 [facility] Comment on above: Performed By: #### H EPATIC, CBC, LIPASE, BMP #### [facility] [address] [place] [address] [place] GFR/1.73 sq M.predicted MDRD (S/P/Bld) [Vol rate/Area] mL/min/{1.73_m2} [facility] Comment on above: Performed By: #### H EPATIC, CBC, LIPASE, BMP #### [facility] [address] Glucose [Mass/Vol] 105 mg/dL High 70-100 [facility] Comment on above: Result Comment: [facility] Glucose Reference Range is dependent on time and content of last meal. Glucose of more than 200 mg/dL in a nonstressed, ambulatory subject supports the diagnosis of Diabetes Mellitus. ADA recommended reference range Performed By: #### H EPATIC, CBC, LIPASE, BMP #### [facility] [address] Potassium [Moles/Vol] 3.7 mmol/L Normal 3.5-5.1 [facility] Comment on above: Performed By: #### H EPATIC, CBC, LIPASE, BMP #### [facility] [address] Sodium [Moles/Vol] 139 mmol/L Normal 136-145 [facility] Comment on above: Performed By: #### H EPATIC, CBC, LIPASE, BMP #### [facility] [address] Urea nitrogen [Mass/Vol] 12 mg/dL Normal 7-25 [facility] Comment on above: Performed By: #### H EPATIC, CBC, LIPASE, BMP #### [facility] [address] Basophils Auto (Bld) [#/Vol] Ordered By: Aracelis Robertson on 07-19-2023 Basophils (Bld) [#/Vol] 0.1 10*3/uL 0.0-0.2 [facility] Basophils/100 WBC Auto (Bld) Ordered By: Aracelis Robertson on 07-19-2023 Basophils/100 WBC (Bld) 0.8 % . [facility] Bilirubin Test strip Ql (U)O rdered By: PROVIDER TEMCyril on 07-19-2023 Bilirubin Ql (U) Negative Negative [facility] Bilirubin.direct [Mass/volum e] in Serum or PlasmaOrdered By: Aracelis Robertson on 07-19-2023 Bilirubin.direct [Mass/Vol] 0.10 mg/dL 0.03-0.18 [facility] Bilirubin.total [Mass/volume ] in Serum or PlasmaOrdered By: Aracelis Robertson on 07-19-2023 Bilirubin [Mass/Vol] 0.6 mg/dL 0.3-1.[address] [facility] [address] abdomen pelvis wo conon 0 07-19-2023 CT abdomen pelvis wo con [facility] Main [place] [address] [place], [place] [id number] CT Scan Report Signed Patient: Manuela Davila MR#: [id number] : 1990 Acct:[id number] Age/Sex: 32 / M ADM Date: 07/19/23 Loc: ER Room: Type: [facility] ER Attending Dr: Copies to: Aracelis Robertson APRN Ordering Provider: Aracelis Robertson APRN Date of Service: 07/19/23 CT/CT abdomen pelvis wo con: abdominal pain CT abdomen pelvis wo con 07/19/2023 6:39 PM SIGNS AND SYMPTOMS: Abdominal pain, right flank pain TECHNIQUE: Multidetector ct axial images of the abdomen and pelvis were obtained without IV contrast. Multiplanar reformats were performed and reviewed to further define anatomy and possible pathology. CT was performed with one or more of the following dose reduction techniques: Automated exposure control, adjustment of the mA and/or kV according to patient size, or use of iterative reconstruction technique. COMPARISON: 12/25/2020 FINDINGS: Lower Chest: Within normal limits. ABDOMEN: Liver: Within normal limits. Bile Ducts: Normal caliber. Gallbladder: No calcified gallstones. Normal caliber wall. Pancreas: Within normal limits. Spleen: Within normal limits. Adrenals: Within normal limits. Kidneys: There is mild right-sided hydronephrosis. There is a nonobstructing stone within the right renal collecting system. Pelvis: Reproductive Organs: No pelvic masses. Ureters: There is a 4 mm stone within the proximal right ureter just below the right ureteropelvic junction. Bladder: Within normal limits. Bowel: Normal caliber. There is a normal appendix in the right lower quadrant. Mesenteric Lymph Nodes: No enlarged mesenteric lymph nodes. Peritoneum: No ascites or free air, no fluid collection. Vessels: within normal limits Retroperitoneum: Within normal limits. Abdominal Wall: Within normal limits. Bones: Mild disc degenerative changes are noted in the lower lumbar spine. CT/CT abdomen pelvis wo con IMPRESSION: There is a 4 mm stone in the proximal right ureter just distal to the right ureteropelvic junction. There is resulting right-sided hydronephrosis. A nonobstructing stone is noted in the right renal collecting system. Impression dictated by: Elvira Ramos M.D.07/19/2023 7:42 PM Dictation Location: [facility]- Transcribed By: MONIKA 07/19/231941 Dictated By: Elvira Ramos II, MD 07/19/231935 Signed By: 07/19/231941 Normal [facility] Calcium [Mass/volume] in Ser um or PlasmaOrdered By: Aracelis Robertson on 07-19-2023 Calcium [Mass/Vol] 10.2 mg/dL 8.6-10.3 [facility] Carbon dioxide, total [Moles /volume] in Serum or PlasmaOrdered By: Aracelis Robertson on 07-19-2023 CO2 [Moles/Vol] 29.2 mmol/L 21.0-31.0 [facility] Chloride [Moles/volume] in S jasvir or PlasmaOrdered By: Aracelis Robertson on 07-19-2023 Chloride [Moles/Vol] 103 mmol/L 98-107 [facility] Color Auto (U)Ordered By: CORI KITCHEN on 07-19-2023 Color (U) [place] Yellow [facility] Complete Blood Count Auto Di ffon 07-19-2023 Basophils (Bld) [#/Vol] 0.1 10*3/uL Normal 0.0-0.2 [facility] Comment on above: Result Comment: PERF ORMED BY: [place] [address] PATHOLOGIST SCARFER DONTE WHITAKER M.D. Performed By: #### H EPATIC, CBC, LIPASE, BMP #### [address] Basophils/100 WBC (Bld) 0.8 % Normal . [facility] Comment on above: Performed By: #### H EPATIC, CBC, LIPASE, BMP #### [address] Eosinophils (Bld) [#/Vol] 0.1 10*3/uL Normal 0.0-0.45 [facility] Comment on above: Performed By: #### H EPATIC, CBC, LIPASE, BMP #### [address] Eosinophils/100 WBC (Bld) 1.6 % Normal . [facility] Comment on above: Performed By: #### H EPATIC, CBC, LIPASE, BMP #### [address] Erythrocyte distribution width (RBC) [Ratio] 12.7 % Normal 12.0-14.8 [facility] Comment on above: Performed By: #### H EPATIC, CBC, LIPASE, BMP #### [address] Hematocrit (Bld) [Volume fraction] 44.2 % Normal 38.8-50.0 [facility] Comment on above: Performed By: #### H EPATIC, CBC, LIPASE, BMP #### [address] Hemoglobin (Bld) [Mass/Vol] 15.2 g/dL Normal 13.0-17.0 [facility] Comment on above: Performed By: #### H EPATIC, CBC, LIPASE, BMP #### [address] Lymphocytes (Bld) [#/Vol] 2.1 10*3/uL Normal 1.00-4.8 [facility] Comment on above: Performed By: #### H EPATIC, CBC, LIPASE, BMP #### [address] Lymphocytes/100 WBC (Bld) 27.4 % Normal . [facility] Comment on above: Performed By: #### H EPATIC, CBC, LIPASE, BMP #### [address] MCH (RBC) [Entitic mass] 31.7 pg Normal 27.5-35.2 [facility] Comment on above: Performed By: #### H EPATIC, CBC, LIPASE, BMP #### [address] MCV (RBC) [Entitic vol] 92.3 fL Normal 83.5-101 [facility] Comment on above: Performed By: #### H EPATIC, CBC, LIPASE, BMP #### [address] Mean Corpuscular HGB Conc 34.3 g/dL Normal 32.5-35.6 [facility] Comment on above: Performed By: #### H EPATIC, CBC, LIPASE, BMP #### [address] Monocytes (Bld) [#/Vol] 0.6 10*3/uL Normal 0.0-0.8 [facility] Comment on above: Performed By: #### H EPATIC, CBC, LIPASE, BMP #### [address] Monocytes/100 WBC (Bld) 16.55 % Normal 0.00-20.00 [facility] Comment on above: Performed By: #### H EPATIC, CBC, LIPASE, BMP #### [address] Monocytes/100 WBC (Bld) 7.1 % Normal . [facility] Comment on above: Performed By: #### H EPATIC, CBC, LIPASE, BMP #### [place] [address] [place] Neutrophils (Bld) [#/Vol] 4.9 10*3/uL Normal 1.8-7.7 [facility] Comment on above: Performed By: #### H EPATIC, CBC, LIPASE, BMP #### [address] Neutrophils/100 WBC (Bld) 63.1 % Normal . [facility] Comment on above: Performed By: #### H EPATIC, CBC, LIPASE, BMP #### [address] NRBC% 0.1 /100{WBC} Normal 0-0.5 [facility] Comment on above: Performed By: #### H EPATIC, CBC, LIPASE, BMP #### [address] Platelet mean volume (Bld) [Entitic vol] 8.4 fL Normal 6.6-10.1 [facility] Comment on above: Performed By: #### H EPATIC, CBC, LIPASE, BMP #### [address] Platelets (Bld) [#/Vol] 244 10*3/uL Normal 150-450 [facility] Comment on above: Performed By: #### H EPATIC, CBC, LIPASE, BMP #### [address] RBC (Bld) [#/Vol] 4.79 10*6/uL Normal 3.90-5.60 [facility] Comment on above: Performed By: #### H EPATIC, CBC, LIPASE, BMP #### [address] WBC (Bld) [#/Vol] 7.8 10*3/uL Normal 4.1-10.5 [facility] Comment on above: Performed By: #### H EPATIC, CBC, LIPASE, BMP #### [address] Creatinine [Mass/volume] in Serum or PlasmaOrdered By: Aracelis Robertson on 07-19-2023 Creatinine [Mass/Vol] 0.99 mg/dL 0.70-1.30 [facility] Dipstick and Microscopicon 0 07-19-2023 Appearance (U) Cloudy Critically abnormal Clear [facility] Comment on above: Order Comment: Name Collection Type:: Clean-Voided Midstream Performed By: #### A DDONUAPLUS #### [address] Bacteria,Urine None Seen Normal None Seen [facility] Comment on above: Order Comment: Name Collection Type:: Clean-Voided Midstream Performed By: #### A DDONUAPLUS #### [place] [address] [place] Bilirubin,Urine Negative Normal Negative [facility] Comment on above: Order Comment: Name Collection Type:: Clean-Voided Midstream Performed By: #### A DDONUAPLUS #### [place] [address] [place] Color (U) [place] Critically abnormal Yellow [facility] Comment on above: Order Comment: Name Collection Type:: Clean-Voided Midstream Performed By: #### A DDONUAPLUS #### [address] Glucose Ql (U) Normal Normal Normal [facility] Comment on above: Order Comment: Name Collection Type:: Clean-Voided Midstream Performed By: #### A DDONUAPLUS #### [place] [address] [place] Hyaline Casts,Urine None Seen Normal 0-8 [facility] Comment on above: Order Comment: Name Collection Type:: Clean-Voided Midstream Result Comment: PERF ORMED BY: [place] [address] PATHOLOGIST SCARFER DONTE WHITAKER M.D. Performed By: #### A DDONUAPLUS #### [facility] [address] [place] [address] [place] Ketones Ql (U) Negative Normal Negative [facility] Comment on above: Order Comment: Name Collection Type:: Clean-Voided Midstream Performed By: #### A DDONUAPLUS #### [facility] [address] [place] [address] [place] Leukocyte esterase Test strip Ql (U) 1+ High Negative [facility] Comment on above: Order Comment: Name Collection Type:: Clean-Voided Midstream Performed By: #### A DDONUAPLUS #### [place] [address] [place] Nitrite,Urine Negative Normal Negative [facility] Comment on above: Order Comment: Name Collection Type:: Clean-Voided Midstream Performed By: #### A DDONUAPLUS #### [address] Occult Blood,Urine 3+ High Negative [facility] Comment on above: Order Comment: Name Collection Type:: Clean-Voided Midstream Result Comment: PERF ORMED BY: [place] [address] PATHOLOGIST SCARFER DONTE WHITAKER M.D. Performed By: #### A DDONUAPLUS #### [address] pH (U) 5.5 [pH] Normal 5.0-9.0 [facility] Comment on above: Order Comment: Name Collection Type:: Clean-Voided Midstream Performed By: #### A DDONUAPLUS #### [place] [address] [place] Protein,Urine Trace High Negative [facility] Comment on above: Order Comment: Name Collection Type:: Clean-Voided Midstream Performed By: #### A DDONUAPLUS #### [address] RBC,Urine Innumerable High 0-4 [facility] Comment on above: Order Comment: Name Collection Type:: Clean-Voided Midstream Performed By: #### A DDONUAPLUS #### [facility] [address] [place] [address] Specificy [place],Urine 1.018 Normal 1.001-1.030 [facility] Comment on above: Order Comment: Name Collection Type:: Clean-Voided Midstream Performed By: #### A DDONUAPLUS #### [address] Squamous Epithelial Cell,Urine None Seen Normal 0-2 [facility] Comment on above: Order Comment: Name Collection Type:: Clean-Voided Midstream Performed By: #### A DDONUAPLUS #### [address] [address] [place] Urobilinogen,Urine Normal Normal Normal [facility] Comment on above: Order Comment: Name Collection Type:: Clean-Voided Midstream Performed By: #### A DDONUAPLUS #### [facility] [address] [place] [address] [place] WBC,Urine 1-2 Normal 0-4 [facility] Comment on above: Order Comment: Name Collection Type:: Clean-Voided Midstream Performed By: #### A DDONUAPLUS #### [facility] [address] Eosinophils Auto (Bld) [#/Vo l]Ordered By: Aracelis Robertson on 07-19-2023 Eosinophils (Bld) [#/Vol] 0.1 10*3/uL 0.0-0.45 [facility] Eosinophils/100 WBC Auto (Bl d)Ordered By: Aracelis Robertson on 07-19-2023 Eosinophils/100 WBC (Bld) 1.6 % . [facility] Erythrocyte distribution wid th Auto (RBC) [Ratio]Ordered By: Aracelis Robertson on 07-19-2023 Erythrocyte distribution width (RBC) [Ratio] 12.7 % 12.0-14.8 [facility] Globulin Calc (S) [Mass/Vol] Ordered By: Aracelis Robertson on 07-19-2023 Globulin (S) [Mass/Vol] 2.1 g/dL [facility] Glucose [Mass/volume] in Ser um or PlasmaOrdered By: Aracelis Robertson on 07-19-2023 Glucose [Mass/Vol] 105 mg/dL 70-100 [facility] Comment on above: ADA recommended refe rence rangeRandom Glucose Reference Range is dependent on time and content of last meal. Glucose of more than 200 mg/dL in a nonstressed, ambulatory subject supports the diagnosis of Diabetes Mellitus. Hematocrit Auto (Bld) [Volum e fraction]Ordered By: Aracelis Robertson on 07-19-2023 Hematocrit (Bld) [Volume fraction] 44.2 % 38.8-50.0 [facility] Hemoglobin [Mass/volume] in BloodOrdered By: Aracelis Robertson on 07-19-2023 Hemoglobin (Bld) [Mass/Vol] 15.2 g/dL 13.0-17.0 [facility] Hepatic Panelon 07-19-2023 Albumin [Mass/Vol] 4.8 g/dL Normal 3.5-5.7 [facility] Comment on above: Performed By: #### H EPATIC, CBC, LIPASE, BMP #### [facility] [address] Albumin/Globulin [Mass ratio] 2.3 {ratio} Normal [facility] Comment on above: Performed By: #### H EPATIC, CBC, LIPASE, BMP #### [facility] [address] ALP [Catalytic activity/Vol] 55 U/L Normal 34-104 [facility] Comment on above: Performed By: #### H EPATIC, CBC, LIPASE, BMP #### [facility] [address] ALT [Catalytic activity/Vol] 54 U/L High 7-52 [facility] Comment on above: Performed By: #### H EPATIC, CBC, LIPASE, BMP #### [facility] [address] AST [Catalytic activity/Vol] 21 U/L Normal 13-39 [facility] Comment on above: Performed By: #### H EPATIC, CBC, LIPASE, BMP #### [facility] [address] Bilirubin [Mass/Vol] 0.6 mg/dL Normal 0.3-1.0 [facility] Comment on above: Performed By: #### H EPATIC, CBC, LIPASE, BMP #### [facility] [address] [place] [address] [place] Bilirubin,Indirect 0.5 mg/dL Normal [facility] Comment on above: Performed By: #### H EPATIC, CBC, LIPASE, BMP #### [facility] [address] Bilirubin.indirect [Mass/Vol] 0.10 mg/dL Normal 0.03-0.18 [facility] Comment on above: Performed By: #### H EPATIC, CBC, LIPASE, BMP #### [facility] [address] Globulin (S) [Mass/Vol] 2.1 g/dL Normal [facility] Comment on above: Performed By: #### H EPATIC, CBC, LIPASE, BMP #### [facility] [address] Protein [Mass/Vol] 6.9 g/dL Normal 6.4-8.9 [facility] Comment on above: Performed By: #### H EPATIC, CBC, LIPASE, BMP #### [address] Ketones Auto test strip (U) [Mass/Vol]Ordered By: PROVIDER TEMP on 07-19-2023 Ketones (U) [Mass/Vol] Negative Negative [facility] - UrinalysisOrder ed By: PROVIDER TEMP on 07-19-2023 Hyaline casts LM Ql (Urine sed) None seen [LPF] 0-8 [facility] Leukocytes [#/volume] correc michael for nucleated erythrocytes in Blood by Automated counOrdered By: Aracelis Robertson on 07-19-2023 WBC corrected for nucl RBC Auto (Bld) [#/Vol] 7.8 10*3/uL 4.1-10.5 [facility] Lipaseon 07-19-2023 Lipase [Catalytic activity/Vol] 43.0 U/L Normal 11.0-82.0 [facility] Comment on above: Result Comment: PERF ORMED BY: [place] [address] PATHOLOGIST SCARFER DONTE WHITAKER M.D. Performed By: #### H EPATIC, CBC, LIPASE, BMP #### [address] Lipase [Enzymatic activity/v olume] in Serum or PlasmaOrdered By: Aracelis Robertson on 07-19-2023 Lipase [Catalytic activity/Vol] 43.0 U/L 11.0-82.0 [facility] Lymphocytes Auto (Bld) [#/Vo l]Ordered By: Aracelis Robertson on 07-19-2023 Lymphocytes (Bld) [#/Vol] 2.1 10*3/uL 1.00-4.8 [facility] Lymphocytes/100 WBC Auto (Bl d)Ordered By: Aracelis Robertson on 07-19-2023 Lymphocytes/100 WBC (Bld) 27.4 % . [facility] MCH Auto (RBC) [Entitic mass ]Ordered By: Aracelis Robertson on 07-19-2023 MCH (RBC) [Entitic mass] 31.7 pg 27.5-35.2 [facility] MCHC Auto (RBC) [Mass/Vol]Or dered By: Aracelis Robertson on 07-19-2023 MCHC (RBC) [Mass/Vol] 34.3 g/dL 32.5-35.6 [facility] MCV Auto (RBC) [Entitic vol] Ordered By: Aracelis Robertson on 07-19-2023 MCV (RBC) [Entitic vol] 92.3 fL 83.5-101 [facility] Monocyte distribution width [Entitic volume] in Blood by AutomatedOrdered By: Aracelis Robertson on 07-19-2023 Monocyte distribution width Auto (Bld) [Entitic vol] 16.55 % 0.00-20.00 [facility] Monocytes Auto (Bld) [#/Vol] Ordered By: Aracelis Robertson on 07-19-2023 Monocytes (Bld) [#/Vol] 0.6 10*3/uL 0.0-0.8 [facility] Monocytes/100 WBC Auto (Bld) Ordered By: Aracelis Robertson on 07-19-2023 Monocytes/100 WBC (Bld) 7.1 % . [facility] Neutrophils Auto (Bld) [#/Vo l]Ordered By: Aracelis Robertson on 07-19-2023 Neutrophils (Bld) [#/Vol] 4.9 10*3/uL 1.8-7.7 [facility] Neutrophils/100 WBC Auto (Bl d)Ordered By: Aracelis Robertson on 07-19-2023 Neutrophils/100 WBC (Bld) 63.1 % . [facility] Nitrite Test strip Ql (U)Ord ered By: PROVIDER TEMP on 07-19-2023 Nitrite Ql (U) Negative Negative [facility] No Panel InformationOrdered By: Aracelis Robertson on 07-19-2023 Estimated GFR (CKD-EPI) > 60.0 mL/Min [facility] Creatinine Clearance (Chem 115.43 [facility] Nucleated erythrocytes [Pres ence] in Blood by Automated countOrdered By: Aracelis Robertson on 07-19-2023 Nucleated RBC Auto Ql (Bld) 0.1 /100{WBC} 0-0.5 [facility] Platelet mean volume Auto (B ld) [Entitic vol]Ordered By: Aracelis Robertson on 07-19-2023 Platelet mean volume (Bld) [Entitic vol] 8.4 fL 6.6-10.1 [facility] Platelets Auto (Bld) [#/Vol] Ordered By: Aracelis Robertson on 07-19-2023 Platelets (Bld) [#/Vol] 244 10*3/uL 150-450 [facility] Potassium [Moles/volume] in Serum or PlasmaOrdered By: Aracelis Robertson on 07-19-2023 Potassium [Moles/Vol] 3.7 mmol/L 3.5-5.1 [facility] Protein Auto test strip (U) [Mass/Vol]Ordered By: PROVIDER TEMP on 07-19-2023 Protein (U) [Mass/Vol] Trace mg/dL Negative [facility] Protein [Mass/volume] in Ser um or PlasmaOrdered By: Aracelis Robertson on 07-19-2023 Protein [Mass/Vol] 6.9 g/dL 6.4-8.9 [facility] RBC Auto (Bld) [#/Vol]Ordere d By: Aracelis Robertson on 07-19-2023 RBC (Bld) [#/Vol] 4.79 10*6/uL 3.90-5.60 [facility] Serum or plasma albumin/glob ulin mass ratioOrdered By: Aracelis Robertson on 07-19-2023 Albumin/Globulin [Mass ratio] 2.3 {ratio} [facility] Serum or plasma anion gap de terminationOrdered By: Aracelis Robertson on 07-19-2023 Anion gap [Moles/Vol] 10.5 mmol/L 6.0-15.0 [facility] Serum or plasma non-glucuron idated bilirubin measurement (mass/volume)Ordered By: Aracelis Robertson on 07-19-2023 Bilirubin.indirect [Mass/Vol] 0.5 mg/dL [facility] Sodium [Moles/volume] in Ser um or PlasmaOrdered By: Aracelis Robertson on 07-19-2023 Sodium [Moles/Vol] 139 mmol/L 136-145 [facility] Specific gravity Auto test s trip (U) [Rel density]Ordered By: PROVIDER TEMP on 07-19-2023 Specific gravity (U) [Rel density] 1.018 1.001-1.030 [facility] Squamous epithelial cells de tection in urine sediment by light microscopyOrdered By: PROVIDER TEMP on 07-19-2023 Epithelial cells.squamous LM Ql (Urine sed) None seen [HPF] 0-2 [facility] Urea nitrogen [Mass/volume] in Serum or PlasmaOrdered By: Aracelis Robertson on 07-19-2023 Urea nitrogen [Mass/Vol] 12 mg/dL 7-25 [facility] Urine bacteria detection by automated methodOrdered By: PROVIDER TEM on 07-19-2023 Bacteria Auto Ql (U) None seen None Seen [facility] Urine clarity by refractomet ry automatedOrdered By: PROVIDER TEM on 07-19-2023 Clarity Refractometry automated (U) Cloudy Clear [facility] Urine glucose measurement by automated test strip (mass/volume)Ordered By: PROVIDER TEMP on 07-19-2023 Glucose Auto test strip (U) [Mass/Vol] Normal mg/dL Normal [facility] Urine hemoglobin detection b y automated test stripOrdered By: PROVIDER TEMP on 07-19-2023 Hemoglobin Auto test strip Ql (U) 3+ Negative [facility] Urine leukocyte esterase det ection by automated test stripOrdered By: PROVIDER TEMP on 07-19-2023 Leukocyte esterase Auto test strip Ql (U) 1+ Negative [facility] Urobilinogen Auto test strip (U) [Mass/Vol]Ordered By: PROVIDER TEMP on 07-19-2023 Urobilinogen (U) [Mass/Vol] Normal mg/dL Normal [facility] WBC Auto (Bld) [#/Vol]Ordere d By: Aracelis Sonaliabiel on 07-19-2023 WBC (Bld) [#/Vol] 7.8 10*3/uL 4.1-10.5 [facility] pH Auto test strip (U)Ordere d By: PROVIDER TEMP on 07-19-2023 pH (U) 5.5 [pH] 5.0-9.0 [facility] Quick Strepon 07-07-2023 S. pyogenes Org specific cx Ql (Throat) Negative [employer] Other Quick Strep [employer] Other SARS-CoV-2 (COVID-19) RNA NA A+probe Ql (Resp)on 07-07-2023 SARS-CoV-2 (COVID-19) RNA DANILO+probe Ql (Unsp spec) Negative [employer] Other CARDIAC ELVIRA ADMITon 023 CK [Catalytic activity/Vol] 168 U/L Normal 39-308 [facility] Comment on above: Performed By: #### B JENNIFER, CMADM #### [facility] [address] [address] [address] Silvia De La Cruz CK.MB [Mass/Vol] 1.06 ng/mL Normal <=3.60 [facility] Comment on above: Performed By: #### B MP, CMADM #### [facility] [address] [address] [address] Silvia De La Cruz HSTROP 5.7 pg/mL Normal 4.0-76.1 [facility] Comment on above: Result Comment: CUT- OFF POINTS HAVE BEEN ESTABLISHED BASED ON THE FOURTH UNIVERSAL DEFINITIONS OF MYOCARDIAL INFARCTION. THE UPPER REFERENCE LIMIT (URL) OF TROPONIN, DEFINED THE 99TH PERCENTILE OF cTnI DISTRIBUTION IN A REFERENCE POPULATION, HAS BEEN CONFIRMED THE DECISION THRESHOLD FOR [place] DIAGNOSIS. Performed By: #### B JENNIFER, CMADM #### [facility] [address] [place] [address] Dr. Silvia De La Cruz MATT 38 ng/mL Normal 16-96 [facility] Comment on above: Performed By: #### B JENNIFER, CMADM #### [facility] [address] [address] [address] Silvia De La Cruz CBC AUTO DIFFon 11-04-2022 BASO # 0.1 103/ul Normal 0.0-0.1 [facility] Comment on above: Performed By: #### C BC #### [facility] [address] [place] [address] Dr. Silvia De La Cruz Basophils/100 WBC (Bld) 1.0 % Normal 0.2-2.0 [facility] Comment on above: Performed By: #### C BC #### [facility] [address] [place] [address] Dr. Silvia De La Cruz EO # 0.3 103/ul Normal 0.0-0.7 [facility] Comment on above: Performed By: #### C BC #### [facility] [address] [place] [address] Dr. Silvia De La Cruz Eosinophils/100 WBC (Bld) 6.9 % Normal 0.9-7.0 [facility] Comment on above: Performed By: #### C BC #### [facility] [address] [place] [address] Dr. Silvia De La Cruz Erythrocyte distribution width (RBC) [Ratio] 11.4 % Normal 11.0-15.0 [facility] Comment on above: Performed By: #### C BC #### [facility] [address] [place] [address] Dr. Silvia De La Cruz Hematocrit (Bld) [Volume fraction] 40.3 % Critically low 42.0-54.0 [facility] Comment on above: Performed By: #### C BC #### [facility] [address] [place] [address] Dr. Silvia De La Cruz Hemoglobin (Bld) [Mass/Vol] 13.6 g/dL Critically low 14.0-18.0 [facility] Comment on above: Performed By: #### C BC #### [facility] [address] [place] [address] Dr. Silvia De La Cruz IG # 0.00 10e3/ul Normal 0.00-0.03 [facility] Comment on above: Performed By: #### C BC #### [facility] [address] [place] [address] Dr. Silvia De La Cruz IG % 0.0 % Normal 0.0-0.5 [facility] Comment on above: Performed By: #### C BC #### [facility] [address] [place] [address] Dr. Silvia De La Cruz LYMPH # 2.4 103/ul Normal 1.2-3.8 [facility] Comment on above: Performed By: #### C BC #### [facility] [address] [place] [address] Dr. Silvia De La Cruz Lymphocytes/100 WBC (Bld) 49.1 % Normal 20.5-60.0 [facility] Comment on above: Performed By: #### C BC #### [facility] [address] [place] [address] Dr. Silvai De La Cruz MANUAL DIFF REQ NO Normal [facility] Comment on above: Performed By: #### C BC #### [facility] [address] [place] [address] Dr. Silvia De La Cruz MCH (RBC) [Entitic mass] 31.1 pg Normal 25.9-34.0 [facility] Comment on above: Performed By: #### C BC #### [facility] [address] [place] [address] Dr. Silvia De La Cruz MCHC (RBC) [Mass/Vol] 33.7 g/dL Normal 29.9-35.2 [facility] Comment on above: Performed By: #### C BC #### [facility] [address] [place] [address] Dr. Silvia De La Cruz MCV (RBC) [Entitic vol] 92.0 fL Normal 80.0-94.0 [facility] Comment on above: Performed By: #### C BC #### [facility] [address] [place] [address] Dr. Silvia De La Cruz MONO # 0.6 103/ul Normal 0.3-0.8 [facility] Comment on above: Performed By: #### C BC #### [facility] [address] [address] [address] Silvia De La Cruz Monocytes/100 WBC (Bld) 12.3 % Critically high 1.7-12. 0 [facility] Comment on above: Performed By: #### C BC #### [facility] [address] [place] [address] Dr. Silvia De La Cruz NEUT # 1.5 103/ul Normal 1.4-6.5 [facility] Comment on above: Performed By: #### C BC #### [facility] [address] [place] [address] Dr. Silvia De La Cruz Neutrophils/100 WBC (Bld) 30.7 % Critically low 43.0-75.0 [facility] Comment on above: Performed By: #### C BC #### [facility] [address] [place] [address] Dr. Silvia De La Cruz Platelet mean volume (Bld) [Entitic vol] 10.6 fL Normal 9.5-13.5 [facility] Comment on above: Performed By: #### C BC #### [facility] [address] [place] [address] Dr. Silvia De La Cruz PLT 259 103/ul Normal 150-450 [facility] Comment on above: Performed By: #### C BC #### [facility] [address] [place] [address] Dr. Silvia De La Cruz RBC 4.38 106/ul Critically low 4.70-6.10 [facility] Comment on above: Performed By: #### C BC #### [facility] [address] [place] [address] Dr. Silvia De La Cruz WBC 4.8 103/ul Normal 4.0-11.0 [facility] Comment on above: Performed By: #### C BC #### [facility] [address] [place] [address] Dr. Silvia De La Cruz D-DIMERon 11-04-2022 D-DIMER 0.36 mg/L FEU Normal <=0.59 [facility] Comment on above: Performed By: #### D DIM #### [facility] [address] [place] [address] Dr. Silvia De La Cruz D-DIMER COMMENTS SEE BELOW Normal [facility] Comment on above: Result Comment: Incr eases in D-Dimer concentration observed with thromboembolic events can be variable due to localization, size, and age of the thrombus. Therefore, a thromboembolic event cannot be diagnosed with certainty on the basis of the reference range. D-Dimers may also be elevated for a variety of disorders including: advanced age, , coronary disease, cancer, liver disease, infection, inflammation, hematoma, DIC, trauma, post-surgery, diabetes, thrombolytic or anticoagulant therapy, stress, and generalized hospitalization. Performed By: #### D DIM #### [facility] [address] [place] [address] Dr. Silvia De La Cruz PROF CHEM 8 (BAS METB)on Anion gap [Moles/Vol] 11.0 mmol/L Normal [facility] Comment on above: Performed By: #### B HECTOR RODRIGUEZ #### [facility] [address] [place] [address] Dr. Silvia De La Cruz Calcium [Mass/Vol] 8.9 mg/dL Normal 8.5-10.1 [facility] Comment on above: Performed By: #### B HECTOR RODRIGUEZ #### [facility] [address] [place] [address] Dr. Silvia De La Cruz Chloride [Moles/Vol] 101 mmol/L Normal 98-107 [facility] Comment on above: Performed By: #### B HECTOR RODRIGUEZ #### [facility] [address] [place] [address] Dr. Silvia De La Cruz CO2 [Moles/Vol] 29.1 mmol/L Normal 21.0-32.0 [facility] Comment on above: Performed By: #### B HECTOR RODRIGUEZ #### [facility] [address] [address] [address] Silvia De La Cruz Creatinine [Mass/Vol] 0.77 mg/dL Normal 0.70-1.30 [facility] Comment on above: Performed By: #### B HECTOR RODRIGUEZ #### [facility] [address] [place] [address] Dr. Silvia De La Cruz EGFR-AF J[place]ICAN >60 Normal >=60 [facility] Comment on above: Performed By: #### B JENNIFER, JUNODM #### [facility] [address] [address] [address] Silvia De La Cruz EGFR-NON AF [place]ICAN >60 Normal >=60 [facility] Comment on above: Performed By: #### B HECTOR RODRIGUEZ #### [facility] [address] [address] [address] Silvia De La Cruz Glucose [Mass/Vol] 102 mg/dL Normal 74-106 [facility] Comment on above: Performed By: #### B HECTOR RODRIGUEZ #### [facility] [address] [address] [address] Silvia De La Cruz Potassium [Moles/Vol] 4.1 mmol/L Normal 3.5-5.1 [facility] Comment on above: Performed By: #### B HECTOR RODRIGUEZ #### [facility] [address] [place] [address] Dr. Silvia De La Cruz Sodium [Moles/Vol] 137 mmol/L Normal 136-145 [facility] Comment on above: Performed By: #### B HECTOR RODRIGUEZ #### [facility] [address] [place] [address] Dr. Silvia De La Cruz Urea nitrogen [Mass/Vol] 16.0 mg/dL Normal 7.0-18.0 [facility] Comment on above: Performed By: #### B HECTOR RODRIGUEZ #### [facility] [address] [place] [address] Dr. Silvia De La Cruz Urea nitrogen/Creatinine [Mass ratio] 20.8 mg/mg Normal [facility] Comment on above: Performed By: #### B HECTOR RODRIGUEZ #### [facility] [address] [place] [address] Dr. Silvia De La Cruz XR CHEST 1 Von 11-04-2022 XR CHEST 1 V EXAM: XR CHEST 1 V HISTORY: CHEST PAIN, UNSPECIFIED COMPARISON: None available at the time of dictation. TECHNIQUE: Chest single view. FINDINGS: Lines/tubes/devices : EKG leads overlie the chest. No indwelling lines are seen. Cardiomediastinum: Cardiac silhouette appears normal in size. Unremarkable mediastinal silhouette. Vasculature: No increased pulmonary vasculature. Lungs/pleura: No consolidation, sizeable effusion, or visible pneumothorax. Bones/soft tissues: Bony thorax appears grossly intact as seen. IMPRESSION: No acute cardiopulmonary findings. Electronically authenticated by: LEONA JACK Date: 2022-11-04 00:16 Normal [facility] UR Drugs of Abuse Panelon Drug Screen Comment see below [facility] Comment on above: Result Comment: This method is a screening test to detect only these drug classes as part of a medical workup. Confirmatory testing by another method should be ordered if clinically indicated. Performed By: #### U DRGS #### [facility] [address] [place] [address] UR Amphetamines Screen Negative Normal Negative < [facility] Comment on above: Performed By: #### U DRGS #### [facility] [address] [place] [address] UR Barbiturates Screen Negative Normal Negative < [facility] Comment on above: Performed By: #### U DRGS #### [facility] [address] [place] [address] UR Benzo Screen Positive Abnormal Negative < [facility] Comment on above: Performed By: #### U DRGS #### [facility] [address] [place] [address] UR Cannabinoids Screen Positive Abnormal Negative < [facility] Comment on above: Performed By: #### U DRGS #### [facility] [address] [place] [address] UR Cocaine Screen Negative Normal Negative < [facility] Comment on above: Performed By: #### U DRGS #### [facility] [address] [place] [address] UR Fentanyl Screen Positive Abnormal Negative < [facility] Comment on above: Performed By: #### U DRGS #### [facility] [address] [place] [address] UR Methadone Screen Negative Normal Negative < [facility] Comment on above: Performed By: #### U DRGS #### [facility] [address] [place] [address] UR Opiates Screen Negative Normal Negative < [facility] Comment on above: Performed By: #### U DRGS #### [facility] [address] [place] [address] UR Oxycodone Screen Negative Normal Negative < [facility] Comment on above: Performed By: #### U DRGS #### [facility] [address] [place] [address] UR PCP Screen Negative Normal Negative < [facility] Comment on above: Performed By: #### U DRGS #### [facility] [address] [place] [address] UR Propoxyphene Screen Negative Normal Negative < [facility] Comment on above: Performed By: #### U DRGS #### [facility] [address] [place] [address] Urine Drug Screenon 08-21-20 22 Amphetamine Screen, Urine Negative Negative <1000 ng/mL [facility] [employer] Barbiturate Screen, Ur Negative Negat kira < 200 ng/mL [facility] [employer] Benzodiazepine Screen, Urine Positive Abnormal Negative < 200 ng/mL [facility] [employer] Cannabinoid Scrn, Ur Positive Abnormal Negativ e < 50 ng/mL [facility] [employer] Cocaine Metabolite Screen, Urine Negative Negative < 300 ng/mL [facility] [employer] Drug Screen Comment: see below [facility] Comment on above: This method is a scr eening test to detect only these drug classes as part of a medical workup. Confirmatory testing by another method should be ordered if clinically indicated. FENTANYL SCREEN, URINE Positive Abnormal Negat kira < 50 ng/mL [facility] Interpretation and review of laboratory results Abnormal [facility] Methadone Screen, Urine Negative Nega tive <300 ng/mL [facility] Opiate Scrn, Ur Negative Negative < 300 ng/mL [facility] Oxycodone Urine Negative Negative <10 0 ng/mL [facility] PCP Screen, Urine Negative Negative < 25 ng/mL [facility] Propoxyphene Scrn, Ur Negative Negati ve <300 ng/mL [facility] POC Influenza A/B and SARS A ntigen manually resultedOrdered By: Skip Sarmiento on 08-02-2022 FLUAV Ag IA.rapid Ql (Nph) Negative Negative [facility] FLUBV Ag IA.rapid Ql (Nph) Negative Negative [facility] INTERNAL CONTROLS Acceptable [facility] SARS-CoV+SARS-CoV-2 (COVID-19) Ag IA.rapid Ql (Resp) Negative Presumptive Negative [facility] CARDIAC ELVIRA ADMITon 022 CK [Catalytic activity/Vol] 181 U/L Normal 39-308 [facility] Comment on above: Performed By: #### B HECTOR RODRIGUEZ ####[facility] [id number] [address]Dr. Silvia De La Cruz CK.MB [Mass/Vol] 1.22 ng/mL Normal <=3.60 [facility] Comment on above: Performed By: #### B HECTOR RODRIGUEZ ####[facility] [id number] [address]Dr. Silvia De La Cruz HSTROP 5.0 pg/mL Normal 4.0-76.1 [facility] Comment on above: Result Comment: CUT- OFF POINTS HAVE BEEN ESTABLISHED BASED ON THE FOURTH UNIVERSAL DEFINITIONS OF MYOCARDIAL INFARCTION. THE UPPER REFERENCE LIMIT (URL) OF TROPONIN, DEFINED THE 99TH PERCENTILE OF cTnI DISTRIBUTION IN A REFERENCE POPULATION, HAS BEEN CONFIRMED THE DECISION THRESHOLD FOR [place] DIAGNOSIS. Performed By: #### B HECTOR RODRIGUEZ ####[facility] [id number] [address]Dr. Silvia De La Cruz MATT 44 ng/mL Normal 16-96 [facility] Comment on above: Performed By: #### B MP, CMADM ####[facility] [id number] [address]Dr. Silvia De La Cruz CBC AUTO DIFFon 03-23-2022 BASO # 0.1 103/ul Normal 0.0-0.1 [facility] Comment on above: Performed By: #### C BC #### [facility] [address] [address] [address] Silvia De La Cruz Basophils/100 WBC (Bld) 0.9 % Normal 0.2-2.0 [facility] Comment on above: Performed By: #### C BC #### [facility] [address] [address] [address] Silvia De La Cruz EO # 0.3 103/ul Normal 0.0-0.7 [facility] Comment on above: Performed By: #### C BC #### [facility] [address] [address] [address] Silvai De La Cruz Eosinophils/100 WBC (Bld) 3.9 % Normal 0.9-7.0 [facility] Comment on above: Performed By: #### C BC #### [facility] [address] [address] [address] Silvia De La Cruz Erythrocyte distribution width (RBC) [Ratio] 11.3 % Normal 11.0-15.0 [facility] Comment on above: Performed By: #### C BC #### [facility] [address] [address] [address] Silvia De La Cruz Hematocrit (Bld) [Volume fraction] 40.8 % Critically low 42.0-54.0 [facility] Comment on above: Performed By: #### C BC #### [facility] [address] [address] [address] Silvia De La Cruz Hemoglobin (Bld) [Mass/Vol] 14.1 g/dL Normal 14.0-18.0 [facility] Comment on above: Performed By: #### C BC #### [facility] [address] [place] [address] Dr. Silvia De La Cruz IG # 0.01 10e3/ul Normal 0.00-0.03 [facility] Comment on above: Performed By: #### C BC #### [facility] [address] [place] [address] Dr. Silvia De La Cruz IG % 0.1 % Normal 0.0-0.5 [facility] Comment on above: Performed By: #### C BC #### [facility] [address] [place] [address] Dr. Silvia De La Cruz LYMPH # 3.1 103/ul Normal 1.2-3.8 [facility] Comment on above: Performed By: #### C BC #### [facility] [address] [place] [address] Dr. Silvia De La Cruz Lymphocytes/100 WBC (Bld) 45.7 % Normal 20.5-60.0 [facility] Comment on above: Performed By: #### C BC #### [facility] [address] [place] [address] Dr. Silvia De La Cruz MANUAL DIFF REQ NO Normal [facility] Comment on above: Performed By: #### C BC #### [facility] [address] [place] [address] Dr. Silvia De La Cruz MCH (RBC) [Entitic mass] 31.7 pg Normal 25.9-34.0 [facility] Comment on above: Performed By: #### C BC #### [facility] [address] [place] [address] Dr. Silvia De La Cruz MCHC (RBC) [Mass/Vol] 34.6 g/dL Normal 29.9-35.2 [facility] Comment on above: Performed By: #### C BC #### [facility] [address] [place] [address] Dr. Silvia De La Cruz MCV (RBC) [Entitic vol] 91.7 fL Normal 80.0-94.0 [facility] Comment on above: Performed By: #### C BC #### [facility] [address] [place] [address] Dr. Silvia De La Cruz MONO # 0.6 103/ul Normal 0.3-0.8 [facility] Comment on above: Performed By: #### C BC #### [facility] [address] [place] [address] Dr. Silvia De La Cruz Monocytes/100 WBC (Bld) 9.6 % Normal 1.7-12.0 [facility] Comment on above: Performed By: #### C BC #### [facility] [address] [place] [address] Dr. Silvia De La Cruz NEUT # 2.7 103/ul Normal 1.4-6.5 [facility] Comment on above: Performed By: #### C BC #### [facility] [address] [place] [address] Dr. Silvia De La Cruz Neutrophils/100 WBC (Bld) 39.8 % Critically low 43.0-75.0 [facility] Comment on above: Performed By: #### C BC #### [facility] [address] [place] [address] Dr. Silvia De La Cruz Platelet mean volume (Bld) [Entitic vol] 10.8 fL Normal 9.5-13.5 [facility] Comment on above: Performed By: #### C BC #### [facility] [address] [place] [address] Dr. Silvia De La Cruz PLT 259 103/ul Normal 150-450 [facility] Comment on above: Performed By: #### C BC #### [facility] [address] [place] [address] Dr. Silvia De La Cruz RBC 4.45 106/ul Critically low 4.70-6.10 [facility] Comment on above: Performed By: #### C BC #### [facility] [address] [place] [address] Dr. Silvia De La Cruz WBC 6.7 103/ul Normal 4.0-11.0 [facility] Comment on above: Performed By: #### C BC #### [facility] [address] [place] [address] Dr. Silvia De La Cruz Covid-19 PCR ([facility])on 02-23 SARS-CoV-2 (COVID-19) RNA DANILO+probe Ql (Unsp spec) Not detected Normal NOT DETECTED [facility] Comment on above: Result Comment: When diagnostic testing is negative, the possibility of a false negative should be considered in the context of a patient's recent exposures and the presence of clinical signs and symptoms consistent with SARS-CoV-2. This test is not yet approved or cleared by the [place] FDA. When there are no FDA-approved or cleared tests available, and other criteria are met, FDA can make tests available under an emergency access mechanism called an Emergency Use Authorization (EUA). The EUA for this test is supported by the Belt Machine Operator of Health and Human Service's declaration that circumstances exist to justify the emergency use of in vitro diagnostics for the detection and/or diagnosis of the virus that causes COVID-19. This EUA will remain in effect for the duration of the COVID-19 declaration justifying emergency of IVDs, unless it is terminated or revoked by the FDA (after which the test may no longer be used). Performed By: #### C VDTBH #### [facility] [address] [place] [address] Dr. Silvia De La Cruz INFLUENZA A AND B AGon 03-23 INFLUANEGH SEE BELOW Normal [facility] Comment on above: Result Comment: Nega tive for Flu A protein angiten. Infection due to Flu A cannot be ruled out. Flu A angiten in the sample may be below the detection limit of the test. Performed By: #### I NFLUAB #### [facility] [address] [place] [address] Dr. Silvia De La Cruz INFLUBNEG SEE BELOW Normal [facility] Comment on above: Result Comment: Nega tive for Flu B protein antigen. Infection due to Flu B cannot be ruled out. Flu B antigen in the sample may be below the detection limit of the test. Performed By: #### I NFLUAB #### [facility] [address] [place] [address] Dr. Silvia De La Cruz INFLUENZA A AG Negative Normal NEGATIVE SEE COMMENT [facility] Comment on above: Performed By: #### I NFLUAB #### [facility] [address] [place] [address] Dr. Silvia De La Cruz INFLUENZA B AG Negative Normal NEGATIVE SEE COMMENT [facility] Comment on above: Performed By: #### I NFLUAB #### [facility] [address] [address] [address] Silvia De La Cruz INTERNAL CONTROLS Within Normal Limits Normal Within Normal Limits [facility] Comment on above: Performed By: #### I NFLUAB #### [facility] [address] [address] [address] Silvia De La Cruz PROF CHEM 8 (BAS METB)on Anion gap [Moles/Vol] 10.7 mmol/L Normal Th [facility] Comment on above: Performed By: #### B HECTOR RODRIGUEZ ####[facility] [address] [address]Dr. Silvia De La Cruz Calcium [Mass/Vol] 9.1 mg/dL Normal 8.5-10.1 [facility] Comment on above: Performed By: #### B HECTOR RODRIGUEZ ####[facility] [address] [address]Dr. Silvia De La Cruz Chloride [Moles/Vol] 105 mmol/L Normal 98-107 [facility] Comment on above: Performed By: #### HECTOR Segundo MP ####[facility] [address] [address]Dr. Silvia De La Cruz CO2 [Moles/Vol] 28.0 mmol/L Normal 21.0-32.0 [facility] Comment on above: Performed By: #### HECTOR Segundo MP ####[facility] [address] [address]Dr. Silvia De La Cruz Creatinine [Mass/Vol] 0.98 mg/dL Normal 0.70-1.30 [facility] Comment on above: Performed By: #### HECTOR Segundo MP ####[facility] [address] [address]Dr. Silvia De La Cruz EGFR-AF JAMAICAN >60 Normal >=60 [facility] Comment on above: Performed By: #### HECTOR Segundo MP ####[facility] [address] [id number]. Silvia De La Cruz EGFR-NON AF JAMAICAN >60 Normal >=60 [facility] Comment on above: Performed By: #### B JENNIFER, HECTOR ####[facility] [address] [place], [place] [address]Dr. Silvia De La Cruz Glucose [Mass/Vol] 84 mg/dL Normal 74-106 [facility] Comment on above: Performed By: #### B JENNIFER, HECTOR ####[facility] [address] [address]Dr. Silvia De La Cruz Potassium [Moles/Vol] 3.7 mmol/L Normal 3.5-5.1 [facility] Comment on above: Performed By: #### B JENNIFER, HECTOR ####[facility] [address] [address]Dr. Silvia De La Cruz Sodium [Moles/Vol] 140 mmol/L Normal 136-145 [facility] Comment on above: Performed By: #### Sanya RODRIGUEZ, HECTOR ####[facility] [address] [place], [place] [address]Dr. Silvia De La Cruz Urea nitrogen [Mass/Vol] 14.0 mg/dL Normal 7.0-18.0 [facility] Comment on above: Performed By: #### Sanya RODRIGUEZ, HECTOR ####[facility] [address] [address]Dr. Silvia De La Cruz Urea nitrogen/Creatinine [Mass ratio] 14.3 mg/mg Normal [facility] Comment on above: Performed By: #### HECTOR Segundo MP ####[facility] [address] [place], [place] [address]Dr. Silvia De La Cruz Covid-19 PCR ([facility])on 11-25 SARS-CoV-2 (COVID-19) RNA DANILO+probe Ql (Unsp spec) Not detected Normal NOT DETECTED [facility] Comment on above: Result Comment: This test is not yet approved or cleared by the [place] FDA. When there are no FDA-approved or cleared tests available, and other criteria are met, FDA can make tests available under an emergency access mechanism called an Emergency Use Authorization (EUA). The EUA for this test is supported by the [place] of Health and Human Service's (HHS's) declaration that circumstances exist to justify the emergency use of in vitro diagnostics for the detection and/or diagnosis of the virus that causes COVID-19. This EUA will remain in effect (meaning this test can be used) for the duration of the COVID-19 declaration justifying emergency of IVDs, unless it is terminated or revoked by FDA (after which the test may no longer be used). When diagnostic testing is negative, the possibility of a false negative should be considered in the context of a patient's recent exposures and the presence of clinical signs and symptoms consistent with SARS-CoV-2. Performed By: #### C [facility] #### [facility] [address] [place] [address] Dr. Silvia De La Cruz Vital Signs Date Time Vital Sign Value Performing Clinician Facility 11-04-2023 11:00-0500 Body height 175.26 cm Joelle Gonzalez Other [facility] Other 11-04-2023 11:00-0500 Body mass index (BMI) [Ratio] 29.5 kg/m2 Joelle Gonzalez Other [facility] Other 11-04-2023 11:00-0500 Body weight 90.63 kg Joelle Gonzalez Other [facility] Other 11-04-2023 11:00-0500 Diastolic blood pressure 86 mm[Hg] Joelle Gonzalez Other [facility] Other 11-04-2023 11:00-0500 SaO2% (BldA) [Mass fraction] 98 % Joelle Gonzalez Other [facility] Other 11-04-2023 11:00-0500 Systolic blood pressure 128 mm[Hg] Joelle Gonzalez Other [facility] Other 09-27-2023 11:19-0500 Blood Pressure Location [facility] 09-27-2023 11:19-0500 Diastolic blood pressure 87 mm[Hg] VERO TOLLIVER [facility] 09-27-2023 11:19-0500 Heart rate 65 /min VERO TOLLIVER [facility] 09-27-2023 11:19-0500 Respiratory rate 16 /min [facility] TO[facility] 09-27-2023 11:19-0500 Systolic blood pressure 120 mm[Hg] [facility] TO[facility] 09-19-2023 08:30-0500 Body height 175.26 cm Vero Stern Other [facility] Other 09-19-2023 08:30-0500 Body mass index (BMI) [Ratio] 29.53 kg/m2 Vero Stern Other [facility] Other 09-19-2023 08:30-0500 Body weight 90.72 kg Vero Stern Other [facility] Other 09-19-2023 08:30-0500 Diastolic blood pressure 82 mm[Hg] Vero Stern Other [facility] Other 09-19-2023 08:30-0500 SaO2% (BldA) [Mass fraction] 98 % Vero Stern Other [facility] [employer] Other 09-19-2023 08:30-0500 Systolic blood pressure 122 mm[Hg] Vero Stern Other [facility] Other 08-08-2023 17:26-0400 Diastolic blood pressure 84 mm[Hg] PHYSICIAN NO [facility] 08-08-2023 17:26-0400 Heart rate 52 /min PHYSICIAN NO [facility] 08-08-2023 17:26-0400 Respiratory rate 16 /min PHYSICIAN NO [facility] 08-08-2023 17:26-0400 SaO2% (BldA) [Mass fraction] 98 % PHYSICIAN NO [facility] 08-08-2023 17:26-0400 Systolic blood pressure 122 mm[Hg] PHYSICIAN NO [facility] 08-08-2023 15:31-0400 Body height 175.26 cm PHYSICIAN NO [facility] 08-08-2023 15:31-0400 Body mass index (BMI) [Ratio] 28 kg/m2 PHYSICIAN NO [facility] 08-08-2023 15:31-0400 Body weight 86.18 kg PHYSICIAN NO [facility] 08-08-2023 13:55-0400 Body temperature 98.1 [degF] PHYSICIAN NO [facility] 07-25-2023 19:10-0400 Diastolic blood pressure 90 mm[Hg] PHYSICIAN NO [facility] 07-25-2023 19:10-0400 Heart rate 61 /min PHYSICIAN NO [facility] 07-25-2023 19:10-0400 Respiratory rate 16 /min PHYSICIAN NO [facility] 07-25-2023 19:10-0400 SaO2% (BldA) [Mass fraction] 96 % PHYSICIAN NO [facility] 07-25-2023 19:10-0400 Systolic blood pressure 127 mm[Hg] PHYSICIAN NO [facility] 07-25-2023 15:19-0400 Body height 175.26 cm PHYSICIAN NO [facility] 07-25-2023 15:19-0400 Body mass index (BMI) [Ratio] 28 kg/m2 PHYSICIAN NO [facility] 07-25-2023 15:19-0400 Body weight 86.18 kg PHYSICIAN NO [facility] 07-25-2023 15:08-0400 Body temperature 98.2 [degF] PHYSICIAN NO [facility] 07-25-2023 09:06-0400 Blood Pressure Location [facility] 07-25-2023 09:06-0400 Diastolic blood pressure 82 mm[Hg] [facility] 07-25-2023 09:06-0400 [facility] 80 [facility] 07-25-2023 09:06-0400 Systolic blood pressure 134 mm[Hg] [facility] 07-19-2023 20:50-0400 Diastolic blood pressure 93 mm[Hg] PHYSICIAN NO [facility] 07-19-2023 20:50-0400 Heart rate 66 /min PHYSICIAN NO [facility] 07-19-2023 20:50-0400 Respiratory rate 20 /min PHYSICIAN NO [facility] 07-19-2023 20:50-0400 SaO2% (BldA) [Mass fraction] 99 % PHYSICIAN NO [facility] 07-19-2023 20:50-0400 Systolic blood pressure 138 mm[Hg] PHYSICIAN NO [facility] 07-19-2023 18:37-0400 Body height 175.26 cm PHYSICIAN NO [facility] 07-19-2023 18:37-0400 Body temperature 97.5 [degF] PHYSICIAN NO [facility] 07-19-2023 18:37-0400 Body weight 86.18 kg PHYSICIAN NO [facility] 07-07-2023 13:00-0400 Body height 175.26 cm La Nena Travis Other [facility] Other 07-07-2023 13:00-0400 Body mass index (BMI) [Ratio] 28.26 kg/m2 La Nena Travis Other [facility] Other 07-07-2023 13:00-0400 Body temperature 100.1 [degF] La Nena Travis Other [facility] Other 07-07-2023 13:00-0400 Body weight 86.82 kg La Nena Travis Other [facility] Other 07-07-2023 13:00-0400 Diastolic blood pressure 86 mm[Hg] La Nena Travis Other [facility] Other 07-07-2023 13:00-0400 Respiratory rate 18 /min La Nena Travis Other [facility] Other 07-07-2023 13:00-0400 SaO2% (BldA) [Mass fraction] 98 % La Nena Travis Other [facility] Other 07-07-2023 13:00-0400 Systolic blood pressure 128 mm[Hg] La Nena Travis Other [facility] Other 05-23-2023 15:50-0400 Body height 175.26 cm Claire Rothman Other [facility] Other 05-23-2023 15:50-0400 Body mass index (BMI) [Ratio] 27.76 kg/m2 Claire Rothman Other [facility] Other 05-23-2023 15:50-0400 Body temperature 99 [degF] Cliare Gantley Other [facility] Other 05-23-2023 15:50-0400 Body weight 85.28 kg Claire Lorna Other [facility] Other 05-23-2023 15:50-0400 Diastolic blood pressure 82 mm[Hg] Claire Lorna Other [facility] Other 05-23-2023 15:50-0400 Respiratory rate 18 /min Claire Lorna Other [facility] Other 05-23-2023 15:50-0400 SaO2% (BldA) [Mass fraction] 99 % Claire Gantley Other [facility] Other 05-23-2023 15:50-0400 Systolic blood pressure 121 mm[Hg] Claire Lorna Other [facility] Other 08-21-2022 04:22-0400 Body height 172.7 cm Reece Briscoe MD Work Phone: [employer] 08-21-2022 04:22-0400 Body mass index (BMI) [Ratio] 28.89 kg/m2 Reece Briscoe MD Work Phone: [employer] 08-21-2022 04:22-0400 Body temperature 98.6 [degF] Reece Briscoe MD Work Phone: [employer] 08-21-2022 04:22-0400 Body weight 86.18 kg Reece Briscoe MD Work Phone: [employer] 08-21-2022 04:22-0400 Diastolic blood pressure 79 mm[Hg] Reece Briscoe MD [facility] [employer] 08-21-2022 04:22-0400 Heart rate 128 /min Reece Briscoe MD Work Phone: [facility] 08-21-2022 04:22-0400 Respiratory rate 18 /min Reece Briscoe MD Work Phone: [facility] 08-21-2022 04:22-0400 SaO2% (BldA) [Mass fraction] 96 % Reece Briscoe MD Work Phone: [facility] 08-21-2022 04:22-0400 Systolic blood pressure 154 mm[Hg] Reece Briscoe MD Work Phone: [facility] [employer] 08-02-2022 15:01-0400 Body temperature 98.71 [degF] Kasia Urbina CURER ACID DRUM-ACCOUNTING AUDITOR Work Phone: [facility] [employer] 08-02-2022 15:01-0400 Diastolic blood pressure 92 mm[Hg] Kasia Urbina CURER ACID DRUM-ACCOUNTING AUDITOR Work Phone: [facility] [employer] 08-02-2022 15:01-0400 Heart rate 91 /min Kasia Urbnia CURER ACID DRUM-ACCOUNTING AUDITOR Work Phone: [facility] [employer] 08-02-2022 15:01-0400 Respiratory rate 18 /min Kasia Urbina CURER ACID DRUM-ACCOUNTING AUDITOR Work Phone: [facility] [employer] 08-02-2022 15:01-0400 SaO2% (BldA) [Mass fraction] 99 % Kasia Urbina CURER ACID DRUM-ACCOUNTING AUDITOR Work Phone: [facility] [employer] 08-02-2022 15:01-0400 Systolic blood pressure 157 mm[Hg] Kasia Urbina CURER ACID DRUM-ACCOUNTING AUDITOR Work Phone: [facility] Encounters Encounter Date Encounter Type Care Provider Facility Start: 11-07-2023 End: 11-07-2023 ambulatory Vero Stern Other [facility] Other Start: 11-07-2023 Telephone encounter Vero Rai her [facility] Start: 11-04-2023 End: 11-04-2023 ambulatory Joelle Gonzalez Other [facility] Other Start: 11-04-2023 Office outpatient ne w 45 minutes Joelle Carlos [facility] Start: 10-31-2023 End: 10-31-2023 ambulatory Vero Sophier Other [facility] Other Start: 10-31-2023 Telephone encounter Vero Rai her [facility] Start: 10-18-2023 End: 10-18-2023 ambulatory Vero Jarred Other [facility] Other Start: 10-18-2023 Telephone encounter Vero Rai her [facility] Start: 09-27-2023 End: 09-28-2023 ambulatory VERO TOLLIVER Facility:[facility] Start: 09-27-2023 End: 09-27-2023 Patient encounter procedure VERO Carlitos TOLLIVER [facility] Silvia Start: 09-19-2023 End: 09-19-2023 ambulatory Vero Jarred Other [facility] Other Start: 09-19-2023 Office outpatient ne w 30 minutes Vero Jarred [facility] Start: 08-12-2023 End: 08-13-2023 ambulatory Mina BAEZ Facility:[facility] Start: 08-12-2023 End: 08-12-2023 Patient encounter procedure Mina BAEZ [facility] Start: 08-08-2023 End: 08-08-2023 ambulatory Mina Baez Facility:[facility] Start: 08-08-2023 End: 08-08-2023 Admission to same day surgery center PHYSICIAN NO [facility] [place] Start: 08-08-2023 End: 08-09-2023 ambulatory PHYSICIAN NO [facility] Work Phone: Start: 07-25-2023 End: 07-25-2023 ambulatory PHYSICIAN NO FAMILY Facility:[facility] Start: 07-25-2023 End: 07-25-2023 Admission to same day surgery center PHYSICIAN NO [facility] [place] [facility] [place] Start: 07-25-2023 End: 07-25-2023 ambulatory PHYSICIAN NO [facility] Work Phone: Start: 07-25-2023 End: 07-26-2023 ambulatory Mina BAEZ Facility:[id number] Start: 07-25-2023 End: 07-26-2023 ambulatory Mina BAEZ Facility:[facility] Start: 07-25-2023 End: 07-25-2023 ambulatory PHYSICIAN NO FAMILY Facility:[facility] Start: 07-25-2023 End: 07-25-2023 Patient encounter procedure Mina BAEZ [facility] Start: 07-25-2023 End: 07-25-2023 ambulatory PHYSICIAN NO [facility] Work Phone: Start: 07-25-2023 End: 07-25-2023 Patient encounter procedure PHYSICIAN NO [facility] [place] Work Phone: Start: 07-19-2023 End: 07-19-2023 Emergency department patient visit PHYSICIAN NO FAMILY Facility:[facility] Start: 07-19-2023 End: 07-19-2023 Emergency department patient visit PHYSICIAN NO [facility] Work Phone: Start: 07-07-2023 End: 07-07-2023 ambulatory La Nena Travis Other [facility] Other Start: 07-07-2023 Office outpatient vi sit 25 minutes La Nena Travis [facility] Start: 05-23-2023 End: 05-23-2023 ambulatory Claire Rothman Other [facility] Other Start: 05-23-2023 Office outpatient vi sit 15 minutes Claire Lorna [facility] Start: 11-04-2022 End: 11-04-2022 ambulatory BEBETO PEREZ Facility:[facility] Start: 08-21-2022 End: 08-21-2022 Emergency department [facility] Start: 08-21-2022 End: 08-21-2022 Emergency department patient visit Reece Briscoe MD Work Phone: [facility] Comment on above: Accidental drug over dose, initial encounter (Primary Dx) Start: 08-02-2022 End: 08-02-2022 Office outpatient visit 15 minutes Kasia Urbina CURER ACID DRUM-ACCOUNTING AUDITOR Work Phone: [facility] Comment on above: Viral infection, uns pecified (Primary Dx); Screening for STD (sexually transmitted disease); Anxiety about health Start: 03-23-2022 End: 03-23-2022 ambulatory BEBETOGERARD PEREZ Facility:[facility] Start: 12-22-2021 End: 12-22-2021 ambulatory Ratna Belcher GELATIN DYNAMITE PACKING OPERATOR Work Phone: [facility] Start: 12-22-2021 End: 12-22-2021 Patient encounter procedure Ratna Belcher GELATIN DYNAMITE PACKING OPERATOR Work Phone: Psychiatry Comment on above: APPOINTMENT CANCELLE D (Primary Dx) Start: 12-17-2021 End: 12-17-2021 ambulatory RONEL MAURER Facility:[facility] Start: 12-01-2021 End: 12-02-2021 ambulatory RONEL [facility] Facility:[facility] Procedures Date Procedure Procedure Detail Performing Clinician Start: 08-08-2023 Abdomen endoscopy PHYSI MARIA GUADALUPE NO FAMILY Start: 08-08-2023 Diagnostic radiograp hy of abdomen PHYSICIAN NO FAMILY Start: 08-08-2023 Cystoscopic laser lithotripsy of ureteric calculus VERO TOLLIVER Start: 07-25-2023 Abdomen endoscopy PHYSI MARIA GUADALUPE NO FAMILY Start: 07-25-2023 Cystoscopy PHYSICIAN NO FAMILY Start: 07-25-2023 Diagnostic radiograp hy of abdomen PHYSICIAN NO FAMILY Start: 07-25-2023 Diagnostic radiograp hy of abdomen PHYSICIAN NO FAMILY Start: 07-25-2023 Cystoscopic insertio n of ureteric stent VERO TOLLIVER Start: 07-19-2023 CT of abdomen and pe lvis without contrast PHYSICIAN NO FAMILY Start: 08-21-2022 Drug tst prsmv instr mnt chem analyzers pr date Reece Briscoe MD Work Phone: Start: 08-02-2022 POC COVID-FLU HERNAN [place] jacoboa Raquel Urbina CURER ACID DRUM-ACCOUNTING AUDITOR Work Phone: Start: 12-21-2021 Adult depression scr eening assessment Ratna Ye ARAMBULA Work Phone: History of hernia repair Gre dashawn BAEZ Tonsillectomy Mina BAEZ Plan of Treatment Date Care Activity Detail Author Start: 2039 Zoster Vaccines (1 of 2) Zoste r Vaccines (1 of 2) [facility] Start: 02-14-2024 ambulatory Ambulatory Facility:[facility] Start: 08-08-2023 End: 08-08-2023 [facility] Start: 07-25-2023 [facility] Start: 07-25-2023 [facility] Start: 12-21-2022 Adult depression screening assessment DEPRESSION SCREENING [facility] Start: 06-24-2022 Influenza vaccination Influenza Vacc ine (#1) [facility] Start: 05-24-2022 Influenza vaccination Flu vaccine (# 1) [facility] Start: 06-24-2021 Influenza vaccination INFLUENZA (#1) [facility] Start: 2008 DTaP/Tdap/Td vaccine (1 - Tdap) DTaP/Tdap/Td vaccine (1 - Tdap) [facility] Start: 2008 DTaP/Tdap/Td Vaccine s (1 - Tdap) DTaP/Tdap/Td Vaccines (1 - Tdap) [facility] Start: 2008 Urine microalbumin profile DTAP,TDAP,TD (1 - Tdap) [facility] Start: 2007 HEPATITIS C SCREENING HEPATITIS C SC REENING [facility] Start: 2007 Hepatitis C screening Hepatitis C sc reen [facility] Start: 2007 HIV SCREENING HIV SCREENING [facility] Start: 2004 HIV screening HIV screen [facility] Start: 2001 Depression Screen Depression Screen [facility] Start: 1994 COVID-19 VACCINE (1) COVID-19 VACCIN E (1) [facility] Start: 1990 Varicella vaccine (1 of 2 - 2-dose childhood series) Varicella vaccine (1 of 2 - 2-dose childhood series) [facility] Start: 04-12-1990 COVID-19 Vaccine (#1) COVID-19 Vacci ne (#1) [facility] Start: 1989 Hepatitis C screening Hepatitis C Sc reening [facility] Start: 1989 HIV screening HIV Screening [facility] Chlamydia sp rRNA [Presence] in Cervix by Probe Chlamydia Trachomatis, RNA Lab Routine Screening for STD (sexually transmitted disease) 08/02/2022 3:09 PM EDT [facility] NEISSERIA GONORRHEA/CHLAMYDIA TRACHOMATIS RNA NEISSERIA GONORRHEA/CHLAMYDIA TRACHOMATIS RNA Lab Routine Screening for STD (sexually transmitted disease) 08/02/2022 3:09 PM EDT [facility] Neisseria gonorrhoea e DNA [Presence] in Genital specimen by DANILO with probe detection Neisseria Gonhorrhoeae, RNA Lab Routine Screening for STD (sexually transmitted disease) 08/02/2022 3:09 PM EDT [facility] Patient Education [facility] Work Phone: [facility] [facility] Work Phone: End: 08-02-2023 Trichomonas vaginalis, NAAT Trichomonas vaginalis, NAAT Lab Routine Screening for STD (sexually transmitted disease) 1 Occurrences starting 08/02/2022 until 08/02/2023 [facility] Work Phone: Comment on above: 1 Occurrences starti ng 08/02/2022 until 08/02/2023 Trichomonas vaginali s, NAAT Trichomonas vaginalis, NAAT Lab Routine Screening for STD (sexually transmitted disease) 08/02/2022 3:09 PM EDT [facility] Payers Date Payer Category Payer Self-pay [id number] 2022 Medicaid [id number] 2022 Medicare [employer]ICARE UHC DUAL COMPLETE [id number] 2022-Present [address] [place] [address] [id number] 2020 Medicaid [facility] MEDICAID [facility] MEDICAID [id number] 2020-Present [phone] [address] [place] [address] Medicaid [id number] 1989 Unknown [id number] 1989 Unknown [id number] [id number] 1989 Unknown [id number] [id number] 1989 Unknown [id number] 2.16.840.1.862223.3.579.2.593 1989 Unknown [id number] 2.16.840.1.335403.3.579.2.727 1989 Unknown [id number] 2.16.840.1.577489.3.579.2.727 1989 Unknown [id number] [id number] 1989 Unknown [id number] 2.16.840.1.691704.3.579.2.727 1989 Unknown [id number] 2.16.840.1.106170.3.579.2.727 1989 Unknown [id number] [id number] 1959 Unknown [id number] Unknown Audrey BC/BS [id number] Unknown [id number] [id number] Unknown [id number] [id number] Unknown [id number] [id number] Unknown [id number] Social History Date Type Detail Facility Tobacco smoking status WVIS Tobacco smoking consumption unknown [facility] Start: 1990 Sex Assigned At Not on file [facility] Start: 08-02-2022 End: 07-19-2023 Tobacco smoking status WVIS Never smoked tobacco [facility] Start: 08-02-2022 End: 08-21-2022 Tobacco use and exposure Smokeless tobacco non-user [facility] Start: 07-23-2022 End: 08-21-2022 Exposure to SARS-CoV-2 (event) Not sure [facility] Start: 08-21-2022 Tobacco smoking status WVIS Occasional tobacco smoker [facility] Work Phone: History of tobacco use Cigarette Smoker [facility] Phone: Start: 08-21-2022 Alcohol intake Current drinke r of alcohol (finding) [facility] Phone: Start: 08-21-2022 Alcohol Comment occasionally [facility] [employer] Phone: Sex Assigned At [facility] Start: 1990 Sex Assigned At Male [facility] Start: 07-25-2023 End: 07-25-2023 Tobacco smoking status NHIS Ex-smoker (finding) [facility] Tobacco smoking status Never [facility] Medical Equipment Procedure Code Equipment Code Equipment Origin al Text Equipment Identifier Dates Cystoscopy, with ureteral calculus manipulation and stent placement Polymeric ureteral stent [id number] FDA Start: 07-25-2023 Goals Date Patient Goal Desired Activity /State Functional Status Date Assessment Result Facility 09-27-2023 Functional Status N/A [facility] 07-25-2023 Functional Status N/A [facility] Clinical Notes 12-22-2021 to 11-04-2023 Note Date & Type Note Facility 11-04-2023 Evaluation note Encounter Date Diagnosis Assessment Notes Oct, Heart palpitations (ICD-10 - R00.2) Oct, Family history of hypertrophic cardiomyopathy (ICD-10 - Z82.49) Mr Davila is a 33yoM with PMH significant for Asthma, JAZZY on CPAP, ADHD, hx of bilateral inguinal hernias s/p repair who presents as a referral for ventricular hypertrophy. Pt's sister was diagnosed with hypertrophic cardiomyopathy and has an ICD. Her disease has progressed and he reports that she is getting surgical myectomy today at [facility]. They had been estranged for a number of years and only started talking after she got diagnosed and told him to get evaluated. He is unaware of specific genetic testing/mutation in the sister. No family history of sudden cardiac . He reports significant history of palpitations and has cardiac work up: - ECHO 10/13/2023 at [facility] (images not available): Normal LVEF 55-60%. Reported as boderline LVH. IVS 1.1cm; posterior wall 1.08cm; Normal RV size and function. Normal valvular function. - 3-day Holter monitor showed sinus rhythm with an average heart rate of 71 bpm. 3 PVCs. 6 patient triggered events that were associated with symptoms of shortness of breath and palpitations. 1 episode showed a heart rate of 118 bpm-sinus tachycardia. Assessment: Palpitations Family history of hypertrophic cardiomyopathy in sister JAZZY on CPAP History of alcohol and substance use disorder ADHD Plan: -EKG today shows normal sinus rhythm. No evidence of hypertrophy or ectopy. -Echo shows mildly thickened interventricular septum measuring1.15 cm. Images not available for review. - Will order cardiac MRI which is a better imaging modality to evaluate LV thickness and LGE for scar. - 4 week event monitor to r/o ventricular ectopy. - Advised to follow up with sister regarding specific genetic mutation and if details are available, will refer pt to the same genetic specialist for testing and counseling as he has a 10 year old daughter. - Advised to stop taking caffeine and energy drinks as this will exacerbate his symptoms. - Follow-up in 2 months [facility] Other 12-26-2023 Evaluation note* Encounter Date Diagnosis Assessment Notes Treatment Notes Treatment Clinical Notes Sep, Ventricular hypertrophy (ICD-10 - I51.7) Borderline [facility] Other 12-05-2023 Hospital Discharge instructions Patient Education 09/27/2023 12:16:14 Dietary Guidelines to Help Prevent Kidney Stones Dietary Guidelines to Help Prevent Kidney Stones Kidney stones are deposits of minerals and salts that form inside your kidneys. Your risk of developing kidney stones may be greater depending on your diet, your lifestyle, the medicines you take, and whether you have certain medical conditions. Most people can lower their risks of developing kidney stones by following these dietary guidelines. Your dietitian may give you more specific instructions depending on your overall health and the type of kidney stones you tend to develop. What are tips for following this plan? Reading food labels Choose foods with no salt added or low-salt labels. Limit your salt (sodium) intake to less than 1,500 mg a day. Choose foods with calcium for each meal and snack. Try to eat about 300 mg of calcium at each meal.Foods that contain 200 500 mg of calcium a serving include: ?8 oz (237 mL) of milk, srdrapo-rynspmyykcog-xmlob milk, and calcium- fortifiedfruit juice. Calcium-fortified means that calcium has been added to these drinks. ?8 oz (237 mL) of kefir, yogurt, and soy yogurt. ?4 oz (114 g) of tofu. ?1 oz (28 g) of cheese. ?1 cup (150 g) of dried figs. ?1 cup (91 g) of cooked broccoli. ?One 3 oz (85 g) can of sardines or mackerel. Most people need 1,000 1,500 mg of calcium a day. Talk to your dietitian about how much calcium is recommended for you. Shopping Buy plenty of fresh fruits and vegetables. Most people do not need to avoid fruits and vegetables, even if these foods contain nutrients that may contribute to kidney stones. When shopping for convenience foods, choose: ?Whole pieces of fruit. ?Pre-made salads with dressing on the side. ?Low-fat fruit and yogurt smoothies. Avoid buying frozen meals or prepared deli foods. These can be high in sodium. Look for foods with live cultures, such as yogurt and kefir. Choose high-fiber grains, such as whole-wheat breads, oat bran, and wheat cereals. Cooking Do not add salt to food when cooking. Place a salt shaker on the table and allow each person to addtheir own salt to taste. Use vegetable protein, such as beans, textured vegetable protein (TVP), or tofu, instead of meat inpasta, casseroles, and soups. Meal planning Eat less salt, if told by your dietitian. To do this: ?Avoid eating processed or pre-made food. ?Avoid eating fast food. Eat less animal protein, including cheese, meat, poultry, or fish, if told by your dietitian. To dothis: ?Limit the number of times you have meat, poultry, fish, or cheese each week. Eat a diet free of meat at least 2 days a week. ?Eat only one serving each day of meat, poultry, fish, or seafood. ?When you prepare animal proteins, cut pieces into small portion sizes. For most meat and fish, oneserving is about the size of the palm of your hand. Eat at least five servings of fresh fruits and vegetables each day. To do this: ?Keep fruits and vegetables on hand for snacks. ?Eat one piece of fruit or a handful of berries with breakfast. ?Have a salad and fruit at lunch. ?Have two kinds of vegetables at dinner. You may be told to limit foods that are high in a substance called oxalate. These include: ?Spinach (cooked), rhubarb, beets, sweet potatoes, and [place] Rican chard. ?Peanuts. ?Potato chips, nauruan fries, and baked potatoes with skin on. ?Nuts and nut products. ?Chocolate. If you regularly take a diuretic medicine, make sure to eat at least 1 or 2 servings of fruits or vegetables that are high in potassium each day. These include: ?Avocado. ?Banana. ?[place], prune, carrot, or tomato juice. ?Baked potato. ?Cabbage. ?Beans and split peas. Lifestyle Drink enough fluid to keep your urine pale yellow. This is the most important thing you can do. Spread your fluid intake throughout the day. If you drink alcohol: ?Limit how much you have to: ?0 1 drink a day for women who are not . ?0 2 drinks a day for men. ?Know how much alcohol is in your drink. In the [place] one drink equals one 12 oz bottle of beer (355 mL), one 5 oz glass of wine (148 mL), or one 1 oz glass of hard liquor (44 mL). Lose weight if told by your health care provider. Work with your dietitian to find an eating plan and weight loss strategies that work best for you. General information Talk to your health care provider and dietitian about taking daily supplements. Depending on your health and the cause of your kidney stones, you may be told: ?Do not take high-dose supplements of vitamin C (1,000 mg a day or more). ?To take a calcium supplement. ?To take a daily probiotic supplement. ?To take other supplements such as magnesium, fish oil, or vitamin B6. Take mncn-auy-unbpwxe and prescription medicines only as told by your health care provider. These include supplements. What foods should I limit? Limit your intake of the following foods, or eat them as told by your dietitian. Vegetables Spinach. Rhubarb. Beets. Canned vegetables. Pickles. Olives. Baked potatoes with skin. Grains Wheat bran. Baked goods. Salted crackers. Cereals high in sugar. Meats and other proteins Nuts. Nut butters. Large portions of meat, poultry, or fish. Salted, precooked, or cured meats, such as sausages, meat loaves, and hot dogs. Dairy Cheeses. Beverages Regular soft drinks. Regular vegetable juice. Seasonings and condiments Seasoning blends with salt. Salad dressings. Soy sauce. Ketchup. Barbecue sauce. Other foods Canned soups. Canned pasta sauce. Casseroles. Pizza. Lasagna. Frozen meals. Potato chips. Thai fries. The items listed above may not be a complete list of foods and beverages you should limit. Contact a dietitian for more information. What foods should I avoid? Talk to your dietitian about specific foods you should avoid based on the type of kidney stones youhave and your overall health. Fruits Grapefruit. The item listed above may not be a complete list of foods and beverages you should avoid. Contact adietitian for more information. Summary Kidney stones are deposits of minerals and salts that form inside your kidneys. You can lower your risk of kidney stones by making changes to your diet. The most important thing you can do is drink enough fluid. Drink enough fluid to keep your urine pale yellow. Talk to your dietitian about how much calcium you should have each day, and eat less salt and animal protein as told by your dietitian. This information is not intended to replace advice given to you by your health care provider. Make sure you discuss any questions you have with your health care provider. Document Revised: 01/20/2023 Document Reviewed: 01/20/2023 marker[employer]to Patient Education 2022 [employer]. Follow Up Care 09/01/2023 14:23:50 With:VERO TOLLIVER PA-C, URL Address: [address] [place] [address] [phone] When: Unknown Comments:has f/u with [facility] 02/14/2024 [facility] Silvia 11-27-2023 Evaluation note* Encounter Date Diagnosis Assessment Notes Treatment Notes Treatment Clinical Notes Aug, Obstructive sleep apnea (ICD-10 - G47.33) Wears CPAP most nights. Aug, Mild intermittent asthma without complication (ICD-10 - J45.20) Asthma symptoms remain unchanged at this time. Patient denies any recent flare ups. He should continues to pace himself. Take medication as directed and we will continue to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 [address] [place] [phone] Referred Provider Specialty Cardiovascul ar Disease Referral Priority Routine Additional Source Comments Source Comments (unrecognize d section and content) In the event this informatio n is protected by the Federal Confidentiality of Alcohol and Drug Abuse Patient Records regulations: The Federal rules restrict any use of the information to criminally investigate or prosecute any alcohol or drug abuse patient.[facility] Reason for Visit (unrecogniz ed section and content) CARDIO CONSULT NOTE Reason Comments Consult Reason Comments Nasal Congestion Cough Other Reason Comments Other Pt to ED due to feel ing sick and feeling like something is off. (unrecognized sect ion and content) No Status Records FoundNo Status Records FoundNo Status Records FoundNo Status Records FoundNo Status Records Found INFORMATION SOURCE (unrecogn ized section and content) DATE CREATED AUTHOR 12/22/2021 [facility] DATE CREATED AUTHOR AUTHOR'S ORGANIZ ATION 08/21/2022 [facility] DATE CREATED AUTHOR AUTHOR'S ORGANIZ ATION 11/06/2022 [facility] DATE CREATED AUTHOR AUTHOR'S ORGANIZ ATION 08/18/2023 [facility] DATE CREATED AUTHOR AUTHOR'S ORGANIZ ATION 10/10/2023 [facility] Care Teams (unrecognized sec tion and content) Team Status: Active Member Role Status Dates PHYSICIAN NO FAMILY Primary Care Provider Active Team Status: Inactive Member Role Status Dates PHYSICIAN NO FAMILY Primary Care Provider Active Mina Baez MD Attending Provider Active Team Status: Inactive Member Role Status Dates PHYSICIAN NO FAMILY Primary Care Provider Active Aracelis Robertson APRN Emergency Provider Active Team Status: Active Member Role Status Dates PHYSICIAN NO FAMILY Primary Care Provider Active Mina Baez MD Attending Provider Active Goals (unrecognized section and content) Goals may be documented in a n alternate section FOR RECORDS PERTAINING TO PATIENTS WHO ARE OR HAVE BEEN ENROLLED IN A CHEMICAL DEPENDENCY/SUBSTANCEABUSE PROGRAM, SOME INFORMATION MAY BE OMITTED. This clinical summary was aggregated from multiple sources. Caution should be exercised in using it in the provision of clinical care. This summary normalizes information from multiple sources, and as a consequence, information in this document may materially change the coding, format and clinical context of patient data. In addition, data may be omitted in some cases. CLINICAL DECISIONS SHOULD BE BASED ON THE PRIMARY CLINICAL RECORDS. [facility]. provides no warranty or guarantee of the accuracy or completeness of information in this document.
--- NOTE | 2023-11-19 17:17 | ED_ITS ---
HPI - URI/Sore Throat General Chief Complaint: Upper Respiratory Infection Stated Complaint: chest pain Time Seen by Provider: 11/19/23 17:01 Source: patient History of Present Illness HPI Narrative: 33-year-old male presents for a cough that he's had for four hours. His girlfriend has Covid. He took a home Covid test and it was negative. His cough is nonproductive and he hasn't had a fever. No vomiting or diarrhea. Related Data Home Medications Medication Instructions Recorded Confirmed prednisone 20 mg tablet 20 mg PO DAILY 09/16/23 09/16/23 pyrilamine 7.5 mg-dextromethorphan 7.5 ml PO DAILY 09/16/23 09/16/23 7.5 mg/5 mL oral liquid (Newcomb DM) valacyclovir 1 gram tablet 1,000 mg PO DAILY 09/16/23 09/16/23 Previous Rx's Medication Instructions Recorded azithromycin 250 mg tablet 250 mg PO DAILY 4 days #4 tabs 09/16/23 Allergies Allergy/AdvReac Type Severity Reaction Status Date / Time cefaclor [From Ceclor] Allergy Severe Verified 09/30/23 15:30 Penicillins Allergy Severe Verified 09/30/23 15:30 Review of Systems ROS Narrative A ten point review of systems is negative except as noted above. PFSH PFSH Social History Smoking status: Former smoker Exam Narrative Exam Narrative: Nurses note and vital signs reviewed and patient is not hypoxic. General: The patient coughs occasionally. Patient is resting comfortably on cart. Skin: Warm, dry, no pallor noted. There is no rash noted. Head: Normocephalic, atraumatic Eye: Normal conjunctiva, no drainage Ears, Nose, Mouth, and Throat: oral mucosa is moist. Nares patent. Cardiovascular: Regular Rate and Rhythm Respiratory: Patient is in no distress, no accessory muscle use, lungs are clear to auscultation, no wheezing, rales or rhonchi Back: non-tender GI: soft and nontender Musculoskeletal: The patient has no evidence of calf tenderness, no pitting edema, symmetrical pulses noted bilaterally Neurological: A&O, normal speech Psychiatric: Cooperative Constitutional Vital Signs, click to edit/add: Last Vital Signs Temp 98.7 F 11/19/23 17:06 Pulse 82 11/19/23 17:06 Resp 16 11/19/23 17:06 BP 142/84 H 11/19/23 17:06 Pulse Ox 96 11/19/23 17:06 O2 Del Method Room Air 11/19/23 17:06 Course Vital Signs Vital signs: Vital Signs Temperature 98.7 F 11/19/23 17:06 Pulse Rate 82 11/19/23 17:06 Respiratory Rate 16 11/19/23 17:06 Blood Pressure 142/84 H 11/19/23 17:06 Pulse Oximetry 96 11/19/23 17:06 Oxygen Delivery Method Room Air 11/19/23 17:06 Temperature 98.7 F 11/19/23 17:06 Pulse Rate 82 11/19/23 17:06 Respiratory Rate 16 11/19/23 17:06 Blood Pressure 142/84 H 11/19/23 17:06 Pulse Oximetry 96 11/19/23 17:06 Oxygen Delivery Method Room Air 11/19/23 17:06 MDM - URI/Sore Throat MDM Narrative Medical decision making narrative: Our Covid test is negative. He was recommended to repeat a home test in a few days if his symptoms haven't improved. There is no indication for further testing or an antibiotic. Treatment diagnosis and follow-up were discussed with the patient. Differential Diagnosis Differential diagnosis: Likely upper respiratory infection, viral infection and other (Covid) Lab Data Attestation: I reviewed the patient's lab results. Labs: Lab Results 11/19/23 Range/Units 17:20 SARS-CoV-2 Ag (CV2AG) Negative (NEGATIVE) Discharge Plan Discharge Chief Complaint: Upper Respiratory Infection Clinical Impression: Upper respiratory infection Patient Disposition: Home, Self-Care Time of Disposition Decision: 17:46 Condition: Good Mode of Transportation: Private Vehicle Prescriptions / Home Meds: No Action valacyclovir 1 gram tablet 1,000 mg PO DAILY Newcomb DM 7.5-7.5 mg/5 mL liquid 7.5 ml PO DAILY prednisone 20 mg tablet 20 mg PO DAILY azithromycin 250 mg tablet 250 mg PO DAILY 4 Days Qty: 4 0RF Rx Instructions: start on day 2 of therapy Instructions: Upper Respiratory Infection (ED) Stand Alone Forms: Portal Instructions Referrals: Physician,Non-Staff, MD [Physician] - 1 week
[2023-11-19 17:39] LABS: SARS-CoV-2 Ag NEGATIVE (NEGATIVE)
== END 2023-11-19 18:01 | disposition home or self-care (01) ==
PROVIDERS: Emergency Provider Emergency Medicine; PCP Internal Medicine
DX: J06.9 Acute upper respiratory infection, unspecified (principal); Z20.822 Contact with and (suspected) exposure to COVID-19; Z79.899 Other long term (current) drug therapy; Z87.891 Personal history of nicotine dependence
CPT/HCPCS: 87811; 99283

== ENCOUNTER 2023-11-28 18:01 | Emergency (ER) | payer OTHER, SELFPAY ==
[2023-11-28 18:04] VITALS: BP 142/80; PULSE 84; RESP 20; TEMP 36.7; O2SAT 98; BMI 29.5
--- NOTE | 2023-11-28 18:09 | PC.NURSE ---
pt c/o SOB, 98% on ra and talks in full sentences with no problems noted.
[2023-11-28 18:10] VITALS: O2SAT 98
--- NOTE | 2023-11-28 18:13 | XR_ITS ---
The [address] [address] Patient Name: MANUELA CHAIDEZ MRN: [id number] date: 1990 Sex: M Assigned Patient Location: ER Current Patient Location: ER Accession/Order Number: [id number] Exam Date: 11/28/2023 18:36 Report Date: 11/28/2023 19:25 At the request of: MELVIN REGAN Procedure: XR chest 1V ONE-VIEW CHEST RADIOGRAPH, 11/28/2023 6:36 PM EST COMPARISON: Chest, 09/30/2023. CLINICAL HISTORY: CP FINDINGS: No acute cardiopulmonary disease. No pulmonary edema, pneumothorax, or pleural effusion. Normal heart size. No acute osseous abnormality. XR/XR chest 1V IMPRESSION: No acute abnormality identified. Electronically authenticated by: Lashawn CARLOS Date: 11/28/2023 19:25
--- NOTE | 2023-11-28 18:13 | ED_ITS ---
HPI - Chest Pain General Chief Complaint: Chest Pain Stated Complaint: Chest Pain Time Seen by Provider: 11/28/23 18:05 Source: patient Mode of arrival: walk-in Limitations: no limitations History of Present Illness HPI narrative: 33-year-old male presents for chest pain. Its on the inferior lateral part of his chest wall and has had it for 2 weeks. He had had a cough and he had been on doxycycline and then Zithromax. The cough seems to have improved but he still has the pain. No fever and he does not complain of back pain. Reportedly his mother has RSV. No vomiting or diarrhea. Related Data Home Medications Medication Instructions Recorded Confirmed prednisone 20 mg tablet 20 mg PO DAILY 09/16/23 09/16/23 pyrilamine 7.5 mg-dextromethorphan 7.5 ml PO DAILY 09/16/23 09/16/23 7.5 mg/5 mL oral liquid (Sims DM) valacyclovir 1 gram tablet 1,000 mg PO DAILY 09/16/23 11/28/23 albuterol sulfate 90 mcg/actuation 2 puff inhalation Q4H PRN 11/28/23 11/28/23 aerosol inhaler shortness of breath or wheezing benzonatate 200 mg capsule 200 mg PO TID 11/28/23 11/28/23 promethazine-DM 6.25 mg-15 mg/5 mL 5 ml PO Q6H PRN cough 11/28/23 11/28/23 oral syrup Previous Rx's Medication Instructions Recorded azithromycin 250 mg tablet 250 mg PO DAILY 4 days #4 tabs 09/16/23 Allergies Allergy/AdvReac Type Severity Reaction Status Date / Time cefaclor [From [facility]] Allergy Severe Verified 09/30/23 15:30 Penicillins Allergy Severe Verified 09/30/23 15:30 Review of Systems ROS Narrative A ten point review of systems is negative except as noted above. PFSH PFSH Social History Smoking status: Former smoker Exam Narrative Exam Narrative: Nurses note and vital signs reviewed and patient is not hypoxic. General: The patient appears well and in no apparent distress. Patient is resting comfortably on cart. Skin: Warm, dry, no pallor noted. There is no rash noted. Head: Normocephalic, atraumatic Eye: Normal conjunctiva, no drainage Ears, Nose, Mouth, and Throat: oral mucosa is moist. Nares patent. Cardiovascular: Regular Rate and Rhythm Respiratory: Patient is in no distress, no accessory muscle use, lungs are clear to auscultation, no wheezing, rales or rhonchi Back: non-tender GI: no tenderness to palpation, no masses appreciated. No rebound, guarding, or rigidity noted. Musculoskeletal: The patient has no evidence of calf tenderness, no pitting edema, symmetrical pulses noted bilaterally Neurological: A&O, normal speech Psychiatric: Cooperative Constitutional Vital Signs, click to edit/add: Last Vital Signs Temp 98.1 F 11/28/23 18:04 Pulse 92 H 11/28/23 18:46 Resp 16 11/28/23 18:46 BP 142/80 H 11/28/23 18:04 Pulse Ox 96 11/28/23 18:46 O2 Del Method Room Air 11/28/23 18:10 Course Vital Signs Vital signs: Vital Signs Temperature 98.1 F 11/28/23 18:04 Pulse Rate 84 11/28/23 18:04 Respiratory Rate 20 11/28/23 18:04 Blood Pressure 142/80 H 11/28/23 18:04 Pulse Oximetry 98 11/28/23 18:04 Oxygen Delivery Method Room Air 11/28/23 18:04 Temperature 98.1 F 11/28/23 18:04 Pulse Rate 92 H 11/28/23 18:46 Respiratory Rate 16 11/28/23 18:46 Blood Pressure 142/80 H 11/28/23 18:04 Pulse Oximetry 96 11/28/23 18:46 Oxygen Delivery Method Room Air 11/28/23 18:10 MDM - Chest Pain MDM Narrative Medical decision making narrative: Tests are ordered and are pending and the patient is signed out to Dr. Jameson at change of shift Differential Diagnosis Differential diagnosis: Likely fracture of rib, pneumothorax, atypical chest pain, st elevation myocardial infarction, costochondritis and chest pain Lab Data Attestation: I reviewed the patient's lab results. Labs: Lab Results 11/28/23 Range/Units 18:23 WBC 8.5 (4.0-11.0) 10^3/uL RBC 4.87 (4.70-6.10) 10^6/uL Hgb 15.1 (14.0-18.0) g/dL Hct 43.4 (42.0-54.0) % MCV 89.1 (80.0-94.0) fL MCH 31.0 (25.9-34.0) pg MCHC 34.8 (29.9-35.2) g/dL RDW 10.8 L (11.0-15.0) % Plt Count 253 (150-450) 10^3/uL MPV 10.2 (9.5-13.5) fL Neut % (Auto) 57.9 (43.0-75.0) % Lymph % (Auto) 28.6 (20.5-60.0) % [place] % (Auto) 9.5 (1.7-12.0) % Eos % (Auto) 2.6 (0.9-7.0) % Baso % (Auto) 0.6 (0.2-2.0) % Neut # (Auto) 5.0 (1.4-6.5) 10^3/uL Lymph # (Auto) 2.4 (1.2-3.8) 10^3/uL [place] # (Auto) 0.8 (0.3-0.8) 10^3/uL Eos # (Auto) 0.2 (0.0-0.7) 10^3/uL Baso # (Auto) 0.1 (0.0-0.1) 10^3/uL Abs Immat Gran (auto) 0.07 H (0.00-0.03) 10^3/uL Imm/Tot Granulo (auto) 0.8 H (0.0-0.5) % ECG Data Attestation: I personally reviewed and interpreted this ECG as follows: (EKG on my interpretation shows normal sinus rhythm without acute change and a rate of 75.) Discharge Plan Discharge Patient Disposition: Still a Patient
--- NOTE | 2023-11-28 18:13 | ECG_ITS ---
[facility] Test Date: 2023-11-28 Pat Name: MANUELA CHAIDEZ Department: Room: - Gender: Male [employer]: : 1990 Requested By: KATELYN DOVER Order Number: [id number] Reading MD: KATELYN DOVER Measurements Intervals [place] Rate: 75 P: 53 IN: 148 QRS: 86 QRSD: 88 T: 24 QT: 368 QTc: 397 Interpretive Statements 1100 Sinus rhythm 9110 normal ECG Compared to ECG 09/30/2023 15:46:28 No significant changes Electronically Signed On 11-29-2023 6:57:58 EST by KATELYN DOVER
--- OUTSIDE RECORDS SUMMARY | 2023-11-28 18:22 | XMS_ITS | CCD ---
Author Name Unknown Address [address] [place] [address] Organization [facility] Care Team Providers Care Oil Distributor Name Role Phone Unavailable Primary Care Provider UnavailREECE Burnett Attending Unavailable BEBETO PEREZ Consulting Unavailable DR ADELE CORONEL Primary Care Unavailable ANA, BEBETO Attending Unavailable ANA, BEBEOT Admitting Unavailable LEONA JACK Unavailable MAURER, RONEL [...] Emergency Provider MD Mina Baez Attending Provider [phone] NO FAMILY, PHYSICIAN Primary Care Unavailable Mina Baez Admitting Unavailable Mina Baez Attending Unavailable NO FAMILY, PHYSICIAN Primary Care Unavailable Aracelis Robertson Admitting Unavailable Aracelis Robertson N Attending Unavailable NO FAMILY, PHYSICIAN Primary Care Unavailable Mina Baez Admitting Unavailable Mina Baez Attending Unavailable Mina Baez Admitting Unavailable Mina Baez Attending Unavailable NO FAMILY, PHYSICIAN Primary Care Unavailable Vero Stern Unavailable [phone] KATELYN DOVER Primary Care Physician VERO TOLLIVER Attending Unavailable Mina BAEZ Attending Unavailable Mina BAEZ Attending Unavailable Mina BAEZ Referring Unavailable Mina BAEZ Attending Unavailable Mina BAEZ Attending Unavailable Mina BAEZ Attending Unavailable Joelle Gonzalez Unavailable Pura Kay Unavailable Allergies Allergy Classification Reported Allergen(s) Allergy Type Date of Onset Reaction(s) Facility (8 sources) Cefaclor; Translations: [cefaclor] Drug Allergy 2 Nausea [facility] (6 sources) Penicillins Allergy to substance 2 Nausea, Anaphylaxis [facility] (13 sources) Cefaclor; Translations: [Ceclor] Drug Allergy 3 [facility] (1 source) Penicillins Drug allergy (disorder) 3 [facility] (11 sources) Penicillin G Drug Allergy [facility] [employer] Other (4 sources) Penicillin; Translations: [penicillin] Drug Allergy [facility] (2 sources) HYDROmorphone; Translations: [hydromorphone] Drug Allergy 3 [facility] (1 source) Cefaclor Drug Allergy 3 [facility] (1 source) Penicillins Drug allergy (disorder) 3 [facility] Medications Current Medications Medication Drug [...] EVERY 4-6 HOURS 12 July 19, 2023 [id number] actuat albuterol 0.09 mg/actuat metered dose inhaler (12 sources) beta2-Adren ergic Agonist Start: 11-21-2023 take 2 puff(s) by inhalation four times daily as needed Albuterol Sulfate HFA 108 (90 Base) MCG/ACT 2 puffs Inhalation 4 times a day prn Oct, Active Start: 09-10-2023 take 2 puff(s) by [...] every 4-6 hours for 30 days Aug, Not-Taking/PRN azithromycin 250 mg oral tablet (1 source) Macrolide Antimicrobial Start: 11-23-2023 Azithromycin 250 MG 2 tablet on the first day, then 1 tablet daily for 4 days Orally Once a day for 5 day(s) Oct, Active benzonatate 200 mg oral capsule (3 sources) Non-narcotic Antitussive Start: 11-21-2023 take 1 capsule by mouth every eight hours Benzonatate 200 MG 1 capsule Orally Three times a day Oct, Active ciprofloxacin 500 mg oral tablet (4 [...] oral tablet (1 source) alpha-Adrenergic Agonist, Uncompetitive Y-ywphbv-I-asparta te Receptor Antagonist, Sigma-1 Agonist Start: 07-07-2023 take 4 tablets by mouth every twenty-four hours as needed Capmist DM 60-15-400 MG as needed Orally every 4-6 hours as needed, max 4 tablets in 24 hours for 5 days Jun, Active dextromethorphan hydrobromide 3 mg/ml / promethazine hydrochloride 1.25 mg/ml oral solution (1 source) Phenothiazine, Uncompetitive W-hxcnsl-M-asparta te Receptor Antagonist, Sigma-1 Agonist Start: 11-23-2023 Promethazine-DM 6.25-15 MG/5ML 5 mL as needed Orally every 6 hrs for 7 days Oct, Active doxycycline hyclate 100 mg oral tablet (3 sources) Tetracycline-class Drug Start: 11-21-2023 take 1 tablet by mouth every twelve hours Doxycycline Hyclate 100 MG 1 tablet Orally Twice a day for 10 day(s) Oct, Active hydrOXYzine pamoate 25 mg oral capsule [...] discomfort, # 60 tab(s), Refills(s) 0, Pharmacy: [facility]/pharmacy #[id number], 175, cm, 07/25/23 9:08:00 EDT, Height/Length Dosing, 89.5, kg, 07/25/23 9:08:00 EDT, Weight Dosing Start Date: 08/09/23 Status: Ordered Start: 07-25-2023 End: 08-08-2023 take 5 mg by mouth twice daily Oxybutynin Chloride Dis continued 5 MG PO Twice daily 60 July 25, 2023 12:00am August 08, 2023 2:01pm predniSONE 20 mg oral tablet (13 sources) Start: 09-10-2023 take 1 tablet by mouth every twelve hours predniSONE 20 MG 1 tablet Orally bid for 5 day(s) Oct, Active Start: 07-07-2023 take 1 tablet by ran th every twelve hours prednisone 20 MG 1 tablet Orally BID for 5 Jun, Active tamsulosin hydrochloride 0.4 mg oral capsule (5 sources) alpha-Adrenergic Feliberto Start: 07-19-2023 End: 08-08-2023 take 1 capsule by mouth once daily Flomax 0.4 mg Cap 0.4 mg = 1 cap(s), Oral, Daily, # 30 cap(s), Refills(s) 0, Pharmacy: [facility]/pharmacy #[id number], 175, cm, 07/25/23 9:08:00 EDT, Height/Length Dosing, 89.5, kg, 07/25/23 9:08:00 EDT, Weight Dosing Start Date: 08/09/23 Status: Ordered traZODone hydrochloride 100 mg oral tablet (9 sources) Serotonin Reuptake Inhibitor take 1 tablet by mouth every twenty-four hours traZODone HCl 100 MG 1 tablet at bedtime Orally Once a day for 90 days Active valACYclovir 1000 mg oral tablet (17 sources) Herpesvirus Nucleoside Analog DNA Polymerase Inhibitor, [...] Drug Class(es) Dates Sig (Normalized) Sig (Original) dextromethorphan hydrobromide 1.5 mg/ml / pyrilamine maleate 1.5 mg/ml oral solution (8 sources) Uncompetitive P-lwnmqe-R-aspartat e Receptor Antagonist, Sigma-1 Agonist Start: 09-10-2023 take 10 mL by mouth every eight hours as needed Vincent DM 7.5-7.5 MG/5ML 10 mL Orally every 8 hours for 5 days Aug, Not-Taking/PRN methylPREDNISolone (11 sources) Corticosteroid Start: 03-11-2014 Depo-Medrol 80 mg [...] specified anxiety disorders] Onset: 03-24-2022 Chronic Asthma (13 sources) Asthma; Translations: [Mild intermittent asthma] 07-25-2023 Chronic Calculus of urinary tract (14 sources) Ureteric stone; Translations: [Calculus of ureter] Onset: 07-19-2023 07-19-2023 Episodic Cardiac dysrhythmias (2 sources) Palpitations Episodic Chronic obstructive pulmonary disease and bronchiectasis (2 sources) Bronchitis, not specified as acute or chronic Episodic Fracture of upper limb (1 source) [...] 11-05-2022 Episodic Other and ill-defined heart disease (8 sources) Ventricular hypertrophy ; Translations: [Cardiomegaly] Chronic [...] blood chemistry Episodic Other upper respiratory infections (4 sources) Acute upper respiratory infection, unspecified; Translations: [...] APNEA] Onset: 12-01-2021 Chronic Residual codes; unclassified (9 sources) Obstructive sleep apnea syndrome; Translations: [Obstructive sleep apnea (adult) (pediatric)] Chronic Residual codes; unclassified (9 sources) Sleep disorder; Translations: [Sleep disorder, unspecified] [...] Test Name Value Interpretation Reference Range Facility COVID + FLU Quick Testingon 11-21-2023 SARS-CoV-2 (COVID-19) RNA DANILO+probe Ql (Unsp spec) Negative [employer] Other COVID + FLU Quick Testing Negative [employer] [facility] [employer] Other Quick Strepon 11-21-2023 S. pyogenes Org specific cx Ql (Throat) Negative [facility] [employer] Other Quick Strep [facility] [employer] Other Lab Report[facility] 10-10-2023 Lab Reports [id number] [facility] 1 11-28-2022 Ambulatory Visit Summary MANUELA DAVILA :1990 Visit Date:09/27/2023 Ambulatory Visit Instructions Your Diagnosis Kidney stone Ureteral stone Tests Performed Urnls Dip Stick Auto w/o Microscopy POC 25967 Your Care Team Attending Physician - VERO TOLLIVER PA-C Primary Care Physician - STANISLAW WOODS KATELYN This Is Your Medications List Contact prescribing [...] Follow-Up Appointments Tuesday 2:30 PM EDT With: Mina BAEZ MD Where: [facility] Patient Educationon 09-27-20 Patient Education Nephrology Dietary [...] Spinach (cooked), rhubarb, beets, sweet potatoes, and Mauritanian chard. ? Peanuts. ? Potato chips, congolese fries, and baked potatoes with skin on. ? Nuts and nut products. ? Chocolate. ? If you regularly take a diuretic medicine, make sure to eat at least 1 or 2 servings of fruits or vegetables that are high in potassium each day. These include: ? Avocado. ? Banana. ? Jenkins, prune, carrot, or tomato juice. ? Baked [...] fish oil, or vitamin B6. ? Take dvpn-mpq-peloqbd and prescription medicines only as told by your health care provider. These include supplements. What foods sh (more content not included)... Normal [facility] Urology Office/Clinic Noteon 09-27-2023 Urology Office/Clinic Note [...] Kidney stone (N20.0: Calculus of kidney) KUB 07/25/23 - A tiny stone overlying the R [...] Contact Information UNRULY GARDNER, VERO Urbina, URL [address] [place] [address] [phone] Additional Instructions: has f/u with [facility] 02/14/2024 Patient Education Dietary Guidelines to Help Prevent Kidney Stones Documentation recorded by the angel Lind accurately reflects the services(s) I performed and decisions made by me. Authenticated by Vero Tolliver PA-C on 09/27/2023 12:27:44. I, Carissa Lind, personally scribed for Vero Tolliver PA-C on [...] Protein Urine Dipstick: Negative (09/27/23 11:30:00) Specific [place] Urine Dipstick: 1.020 (09/27/23 11:30:00) Urine Appearance Urine Dipstick: Clear (09/27/23 11:30:00) Urine Color Urine Dipstick: Yellow (09/27/23 11:30:00) Urobilinogen Urine Dipstick: Normal 0.2-1 EU/dl (09/27/23 11:30:00) pH Urine Dipstick: 6 (09/27/23 11:30:00) Normal [facility] Comment on above: Result Comment: Elec tronically Signed By: VERO TOLLIVER PA-C\.br\Date and Time Signed: 09/27/23 12:27 EST\.br\Electronically Co-Signed By: Carissa Lind\.br\Date and Time Co-Signed: 09/27/23 12:17 EST [facility] 09-01-2023 Lab Reports [id number] 1B#1.00TIFF Normal [facility] 08-18-2023 Lab Reports [id number] 12#1.00TIFF Normal [facility] Formson 08-16-2023 Forms [id number]. [id number] 73#1.00TIFF Normal [facility] Pathology Noteon 08-12-2023 Pathology Note [id number] DB#1.00TIFF Normal [facility] Operative Reporton 3 Operative Report [id number] A0#1.00TIFF Normal [facility] RAD - MISCon 08-09-2023 RAD - MISC [id number] 25#1.00TIFF Normal [facility] RAD - MISC [id number] E8#1.00TIFF Normal [facility] Calculi, Urinaryon 3 Ca Oxalate Dihydrate 60 % Normal . [facility] Comment on above: Performed By: #### C ALCULI #### [facility] , Ca Oxalate Monohydrate 35 % Normal . [facility] Comment on above: Performed By: #### C ALCULI #### [facility] , Color (U) Brown Normal . [facility] Comment on above: Performed By: #### C ALCULI #### [facility] , Comment1 Normal . [facility] Comment on above: Result Comment: Calc ium phosphate (hydroxyl form) includes hydroxyapatite, amorphous calcium phosphate, and whitlockite. Hydroxyapatite is the most common of the calcium phosphate salts found in human kidney stones. Performed By: #### C ALCULI #### [facility] , Comment: Normal . [facility] Comment on above: Result Comment: Phys ician questions regarding Calculi Analysis contact [facility] at: [phone]. Performed By: #### C ALCULI #### [facility] , Composition Normal . [facility] Comment on above: Result Comment: Perc entage (Represents the % composition) Performed By: #### C ALCULI #### [facility] , Disclaimer: Normal . [facility] Comment on above: Result Comment: This test was developed and its performance characteristics determined by [facility]. It has not been cleared or approved by the Food and Drug Administration. Performed at: [facility] - [facility] [id number] Executive Secretary: Coleman Vargas PhD, Phone: [phone] Performed By: #### C ALCULI #### [facility] , Hydroxyapatite 5 % Normal . [facility] Comment on above: Performed By: #### C ALCULI #### [facility] , Note Normal . [facility] Comment on above: Result Comment: Calc jodi report will follow via computer, mail or regional sales leader delivery. PERFORMED BY: [place] [id number] PATHOLOGIST STRATEGIC MARKETING MANAGER DONTE WHITAKER M.D. Performed By: #### C ALCULI #### [facility] , Photo Normal . [facility] Comment on above: Result Comment: Phot ograph will follow under a separate cover Performed By: #### C ALCULI #### [facility] , Size 4x3 Normal . [facility] Comment on above: Result Comment: Mult iple pieces received. Dimensions of the largest piece reported. Performed By: #### C ALCULI #### [facility] , Source Normal . [facility] Comment on above: Result Comment: Righ t Kidney Performed By: #### C ALCULI #### [facility] , Weight 28 Normal . [facility] Comment on above: Performed By: #### C ALCULI #### [facility] , [place] urethrocystogram retroon 08-08-2023 [place] urethrocystogram retro [facility] Main [address] [address] Fluoroscopy Report Signed Patient: Manuela Davila MR#: [id number] : 1990 Acct:[id number] Age/Sex: 32 / M ADM Date: 08/08/23 Loc: [place] Room: Type: [facility] Attending Dr: Mina Baez MD Copies to: [...] Elvira Ramos M.D.08/08/2023 4:54 PM Dictation Location: [place] [address] Transcribed By: [facility] 08/08/231653 Dictated By: Elvira Ramos II, MD 08/08/231650 Signed By: 08/08/231653 [facility] 08-08-2023 L Specimen: [id number] Received: 08/09/23 Status: MARGARET Vega Num: [id number] Spec Type: Surgical Subm Dr: Mina Baez MD Tissues: A Urinary Calculus (RT KIDNEY STONE) Procedures: Level 1 Gross Age/ Patient Sex Location Account Attending Physician Manuela Davila 32/M [place] [id number] Mina Baez MD SPEC NUM: [id number] RECD: 08/09/23 STATUS: MARGARET VEGA NUM: [id number] IRINA: 08/08/231555 [facility] DR: Mina Baez MD ENTERED: 08/09/[address]: ALVARO TYPE: Surgical DEPT: S ORDERED: [...] chemical analysis. Gross examination only. CPT Codes 25807 Specimen: [id number] Received: 08/09/23 Status: MARGARET Vega Num: [id number] Spec Type: Surgical Subm Dr: Mina Baez MD Tissues: A Urinary Calculus (RT KIDNEY STONE) Procedures: Level 1 Gross Patient: Manuela Davila [id number] (Continued) Signed (signatur e on file) Kevin Rodríguez MD 08/10/23 1348 [facility] XR KUBon 08-08-2023 XR KUB [address] [address] XRay Report Signed Patient: Manuela Davila MR#: [id number] : 1990 Acct:[id number] Age/Sex: 32 / M ADM Date: 08/08/23 Loc: [place] Room: Type: [facility] Attending Dr: Mina Baez MD Copies to: [...] Leticia Gee M.D.08/08/2023 3:07 PM Dictation Location: [place] [address] Transcribed By: [facility] 08/08/23 1507 Dictated By: Leticia Gee MD 08/08/23 1504 Signed By: 08/08/23 1507 [facility] Insurance Correspondenceon 1 Insurance Correspondence [id number] 997#1.00TIFF Normal [facility] RAD - MISCon 08-01-2023 RAD - MISC [id number] 9C#1.00TIFF Normal [facility] RAD - MISCon 07-27-2023 RAD - MISC [id number] 65#1.00CD:127 Normal [facility] [place] urethrocystogram retroon 07-26-2023 [place] urethrocystogram retro [facility] [place] [place] [address] Fluoroscopy Report Signed Patient: Manuela Davila MR#: [id number] : 1990 Acct:[id number] Age/Sex: 32 / M ADM Date: 07/25/23 Loc: [place] Room: Type: [facility] Attending Dr: Mina Baez MD [...] Dutch Nuñez M.D.07/26/2023 9:28 AM Dictation Location: [place] [address] Transcribed By: [facility] 07/26/23927 Dictated By: Dutch Nuñez DO 07/26/23926 Signed By: 07/26/23927 [facility] Operative Reporton Operative Report [id number] 94#1.00CD:127 [facility] Ambulatory Visit Summaryon 1 Ambulatory Visit Summary MANUELA DAVILA :1990 Visit Date:07/25/2023 Ambulatory Visit Instructions Your Diagnosis Ureteral stone Tests Performed Urnls Dip Stick Auto w/o Microscopy POC 97699 Your Care Team Attending Physician - Mina [...] with Mina BAEZ MD, URL When: Where: [address] [place] [address]- Medications What When Instructions Unchanged valacyclovir (valacyclovir 1 g Tab) Contact prescribing physician if questions or concerns Test Results Urnls Dip Stick Auto w/o Microscopy POC 25232 (07/25/2023) Bilirubin Urine Dipstick - Negative Blood Urine Dipstick - Trace-lysed Glucose Urine Dipstick - Negative Ketones Urine Dipstick - Negative Leukocytes Urine Dipstick - Negative Nitrite Urine Dipstick - Negative Protein Urine Dipstick - Negative Specific [place] Urine Dipstick - >=1.030 Urine Appearance Urine [...] oxalate. These include: (more content not included)... Normal [facility] ED Note-Physicianon 07-25-20 ED Note-Physician [id number] 69#1.00CD:127 Normal [facility] Formson 07-25-2023 Forms [id number]. [id number] #1.00CD:127 Normal [facility] Patient Educationon 07-25-20 Patient Education Nephrology Dietary [...] Spinach (cooked), rhubarb, beets, sweet potatoes, and Mauritanian chard. ? Peanuts. ? Potato chips, congolese fries, and baked potatoes with skin on. ? Nuts and nut products. ? Chocolate. ? If you regularly take a diuretic medicine, make sure to eat at least 1 or 2 servings of fruits or vegetables that are high in potassium each day. These include: ? Avocado. ? Banana. ? Jenkins, prune, carrot, or tomato juice. ? Baked [...] fish oil, or vitamin B6. ? Take eeel-ead-zjicwzw and prescription medicines only as told by your health care provider. These include supplements. What foods should I limit? Limit your in (more content not included)... Normal [facility] [id number] 80#1.00CD:127 Normal [facility] Urology Office/Clinic Noteon 07-25-2023 Urology Office/Clinic Note Chief Complaint Pt is here for [facility] f/u HPI Staff Manuela is a 32 y.o. male here for [facility] follow up for kidney stones w/ KUB. Pt presented to [facility] on 07/19/23 for RT flank pain. [...] (N20.1: Calculus of ureter) Pt presented to [facility] on 07/19/23 for RT flank pain. [...] Contact Information Mina BAEZ MD, URL [address] [facility] [address] [place] [address]- Additional Instructions: Sched Cysto with retro Stent Placement w/pos ureteroscopy [place] (more content not included)... Normal [facility] Comment on above: Result Comment: Elec tronically Signed By: Mina BAEZ MD\.br\Date and Time Signed: 07/25/23 09:50 EDT\.br\Electronically Co-Signed By: Lala Galvan\.br\Date and Time Co-Signed: 07/25/23 09:35 EDT XR KUBon 07-25-2023 XR KUB [facility] [address] [address] XRay Report Signed Patient: Manuela Davila MR#: [id number] : 1990 Acct:[id number] Age/Sex: 32 / M ADM Date: 07/25/23 Loc: [place] Room: Type: [facility] Attending Dr: Mina Baez MD Copies to: [...] Leticia Gee M.D.07/25/2023 4:58 PM Dictation Location: [place] [address] Transcribed By: [facility] 07/25/231657 Dictated By: Leticia Gee MD 07/25/231653 Signed By: 07/25/23 1658 Normal [facility] XR KUB [address] [address] XRay Report Signed Patient: Manuela Davila MR#: [id number] : 1990 Acct:[id number] Age/Sex: 32 / M ADM Date: 07/25/23 Loc: XD Room: Type: [facility] Attending Dr: Mina Baez MD Copies to: [...] Leticia Gee M.D.07/25/2023 12:49 PM Dictation Location: [place] [address] Transcribed By: MONIKA 07/25/23 1249 Dictated By: Leticia Gee MD 07/25/23 1246 Signed By: 07/25/23 1249 Normal [facility] Alanine aminotransferase [En zymatic activity/volume] in Serum or PlasmaOrdered By: Aracelis Robertson on 07-19-2023 ALT [Catalytic activity/Vol] 54 U/L 7-52 [facility] Albumin [Mass/volume] in Ser um or Plasma by Bromocresol green (BCG) dye binding methoOrdered By: Aracelis Robertson on 07-19-2023 Albumin BCG dye [Mass/Vol] 4.8 g/dL 3.5-5.7 [facility] Alkaline phosphatase [Enzyma tic activity/volume] in Serum or PlasmaOrdered By: Aracelis Robertson on 07-19-2023 ALP [Catalytic activity/Vol] 55 U/L 34-104 [facility] Aspartate aminotransferase [ Enzymatic activity/volume] in Serum or PlasmaOrdered By: Aracelis Robertson on 07-19-2023 AST [Catalytic activity/Vol] 21 U/L 13-39 [facility] Automated erythrocytes count in urine sediment (number/area)Ordered By: PROVIDER TEMP on 07-19-2023 RBC Auto (Urine sed) [#/Area] Innumerable [HPF] 0-4 [facility] Automated leukocytes count i n urine sediment (number/area)Ordered By: PROVIDER TEMP on 07-19-2023 WBC Auto (Urine sed) [#/Area] 1-2 [HPF] 0-4 [facility] Basic Metabolic Panelon 06-25 Anion gap [Moles/Vol] 10.5 mmol/L Normal 6.0-15.0 [facility] [place] Comment on above: Performed By: #### H EPATIC, CBC, LIPASE, BMP #### [facility] [address] Calcium [Mass/Vol] 10.2 mg/dL Normal 8.6-10.3 [facility] Comment on above: Performed By: #### H EPATIC, CBC, LIPASE, BMP #### [facility] [address] Chloride [Moles/Vol] 103 mmol/L Normal 98-107 [facility] Comment on above: Performed By: #### H EPATIC, CBC, LIPASE, BMP #### [facility] [address] CO2 [Moles/Vol] 29.2 mmol/L Normal 21.0-31.0 [facility] Comment on above: Performed By: #### H EPATIC, CBC, LIPASE, BMP #### [facility] [address] [place] [address] [place] Creatinine [Mass/Vol] 0.99 mg/dL Normal 0.70-1.30 [facility] Comment on above: Performed By: #### H EPATIC, CBC, LIPASE, BMP #### [facility] [address] [place] [address] [place] Creatinine Clr Calc Pharmacy 115.43 [facility] Comment on above: Performed By: #### H EPATIC, CBC, LIPASE, BMP #### [facility] [address] [place] [address] [place] GFR/1.73 sq M.predicted MDRD (S/P/Bld) [Vol rate/Area] mL/min/{1.73_m2} [facility] Comment on above: Performed By: #### H EPATIC, CBC, LIPASE, BMP #### [facility] [address] [place] [address] [place] Glucose [Mass/Vol] 105 mg/dL High 70-100 [facility] Comment on above: Result Comment: [place] Glucose Reference Range is dependent on time and content of last meal. Glucose of more than 200 mg/dL in a nonstressed, ambulatory subject supports the diagnosis of Diabetes Mellitus. ADA recommended reference range Performed By: #### H EPATIC, CBC, LIPASE, BMP #### [facility] [address] Potassium [Moles/Vol] 3.7 mmol/L Normal 3.5-5.1 [facility] Comment on above: Performed By: #### H EPATIC, CBC, LIPASE, BMP #### [facility] [address] Sodium [Moles/Vol] 139 mmol/L Normal 136-145 [facility] Comment on above: Performed By: #### H EPATIC, CBC, LIPASE, BMP #### [facility] [address] Urea nitrogen [Mass/Vol] 12 mg/dL Normal 7-25 [facility] Comment on above: Performed By: #### H EPATIC, CBC, LIPASE, BMP #### [facility] [address] Basophils Auto (Bld) [#/Vol] Ordered By: Aracelis Robertson on 07-19-2023 Basophils (Bld) [#/Vol] 0.1 10*3/uL 0.0-0.2 [facility] Basophils/100 [facility] Auto (Bld) Ordered By: Aracelis Robertson on 07-19-2023 Basophils/100 WBC (Bld) 0.8 % . [facility] Bilirubin Test strip Ql (U)O rdered By: JUVE KITCHEN on 07-19-2023 Bilirubin Ql (U) Negative Negative [facility] Bilirubin.direct [Mass/volum e] in Serum or PlasmaOrdered By: Aracelis Robertson on 07-19-2023 Bilirubin.direct [Mass/Vol] 0.10 mg/dL 0.03-0.18 [facility] Bilirubin.total [Mass/volume ] in Serum or PlasmaOrdered By: Aracelis Robertson on 07-19-2023 Bilirubin [Mass/Vol] 0.6 mg/dL 0.3-1.[address] [facility] [address] abdomen pelvis wo conon 0 07-19-2023 CT abdomen pelvis wo con [facility] [place] [address] [place] [id number] Scan Report Signed Patient: Manuela Davila MR#: [id number] : 1990 Acct:[id number] Age/Sex: 32 / M ADM Date: 07/19/23 Loc: ER Room: Type: [facility] ER Attending Dr: Copies to: Aracelis Robertson [...] Elvira Ramos M.D.07/19/2023 7:42 PM Dictation Location: [place] [address] Transcribed By: [facility] 07/19/231941 Dictated By: Elvira Ramos II, MD 07/19/231935 Signed By: 07/19/231941 Normal [facility] Calcium [Mass/volume] in Ser um or PlasmaOrdered By: Aracelis Robertson on 07-19-2023 Calcium [Mass/Vol] 10.2 mg/dL 8.6-10.3 [facility] Carbon dioxide, total [Moles /volume] in Serum or PlasmaOrdered By: Aracelis Robertson on 07-19-2023 CO2 [Moles/Vol] 29.2 mmol/L 21.0-31.0 [facility] Chloride [Moles/volume] in S jasvir or PlasmaOrdered By: Aracelis Robertson on 07-19-2023 Chloride [Moles/Vol] 103 mmol/L 98-107 [facility] Color Auto (U)Ordered By: CORI KITCHEN on 07-19-2023 Color (U) Jenkins Yellow [facility] Complete Blood Count Auto Di ffon 07-19-2023 Basophils (Bld) [#/Vol] 0.1 10*3/uL Normal 0.0-0.2 [facility] Comment on above: Result Comment: PERF ORMED BY: [place] [address] PATHOLOGIST [employer]ETING MANAGER DONTE WHITAKER M.D. Performed By: #### H EPATIC, CBC, LIPASE, BMP #### [facility] [address] Basophils/100 WBC (Bld) 0.8 % Normal . [facility] Comment on above: Performed By: #### H EPATIC, CBC, LIPASE, BMP #### [facility] [address] [place] [address] [place] Eosinophils (Bld) [#/Vol] 0.1 10*3/uL Normal 0.0-0.45 [facility] Comment on above: Performed By: #### H EPATIC, CBC, LIPASE, BMP #### [address] Eosinophils/100 WBC (Bld) 1.6 % Normal . [facility] Comment on above: Performed By: #### H EPATIC, CBC, LIPASE, BMP #### [address] Erythrocyte distribution width (RBC) [Ratio] 12.7 % Normal 12.0-14.8 [facility] Comment on above: Performed By: #### H EPATIC, CBC, LIPASE, BMP #### [address] Hematocrit (Bld) [Volume fraction] 44.2 % Normal 38.8-50.0 [facility] Comment on above: Performed By: #### H EPATIC, CBC, LIPASE, BMP #### [address] Hemoglobin (Bld) [Mass/Vol] 15.2 g/dL Normal 13.0-17.0 [facility] Comment on above: Performed By: #### H EPATIC, CBC, LIPASE, BMP #### [address] Lymphocytes (Bld) [#/Vol] 2.1 10*3/uL Normal 1.00-4.8 [facility] Comment on above: Performed By: #### H EPATIC, CBC, LIPASE, BMP #### [address] Lymphocytes/100 WBC (Bld) 27.4 % Normal . [facility] Comment on above: Performed By: #### H EPATIC, CBC, LIPASE, BMP #### [address] MCH (RBC) [Entitic mass] 31.7 pg Normal 27.5-35.2 [facility] Comment on above: Performed By: #### H EPATIC, CBC, LIPASE, BMP #### [address] MCV (RBC) [Entitic vol] 92.3 fL Normal 83.5-101 [facility] Comment on above: Performed By: #### H EPATIC, CBC, LIPASE, BMP #### [address] Mean Corpuscular HGB Conc 34.3 g/dL Normal 32.5-35.6 [facility] Comment on above: Performed By: #### H EPATIC, CBC, LIPASE, BMP #### [address] Monocytes (Bld) [#/Vol] 0.6 10*3/uL Normal 0.0-0.8 [facility] Comment on above: Performed By: #### H EPATIC, CBC, LIPASE, BMP #### [address] Monocytes/100 WBC (Bld) 16.55 % Normal 0.00-20.00 [facility] Comment on above: Performed By: #### H EPATIC, CBC, LIPASE, BMP #### [address] Monocytes/100 WBC (Bld) 7.1 % Normal . [facility] Comment on above: Performed By: #### H EPATIC, CBC, LIPASE, BMP #### [address] Neutrophils (Bld) [#/Vol] 4.9 10*3/uL Normal 1.8-7.7 [facility] Comment on above: Performed By: #### H EPATIC, CBC, LIPASE, BMP #### [address] Neutrophils/100 WBC (Bld) 63.1 % Normal . [facility] Comment on above: Performed By: #### H EPATIC, CBC, LIPASE, BMP #### [address] NRBC% 0.1 /100{WBC} Normal 0-0.5 [facility] Comment on above: Performed By: #### H EPATIC, CBC, LIPASE, BMP #### [address] Platelet mean volume (Bld) [Entitic vol] 8.4 fL Normal 6.6-10.1 [facility] Comment on above: Performed By: #### H EPATIC, CBC, LIPASE, BMP #### [address] Platelets (Bld) [#/Vol] 244 10*3/uL Normal 150-450 [facility] Comment on above: Performed By: #### H EPATIC, CBC, LIPASE, BMP #### [address] RBC (Bld) [#/Vol] 4.79 10*6/uL Normal 3.90-5.60 [facility] Comment on above: Performed By: #### H EPATIC, CBC, LIPASE, BMP #### [address] WBC (Bld) [#/Vol] 7.8 10*3/uL Normal 4.1-10.5 [facility] Comment on above: Performed By: #### H EPATIC, CBC, LIPASE, BMP #### [address] Creatinine [Mass/volume] in Serum or PlasmaOrdered By: Aracelis Robertson on 07-19-2023 Creatinine [Mass/Vol] 0.99 mg/dL 0.70-1.30 [facility] Dipstick and Microscopicon 0 07-19-2023 Appearance (U) Cloudy Critically abnormal Clear [facility] Comment on above: Order Comment: Name Collection Type:: Clean-Voided Midstream Performed By: #### A DDONUAPLUS #### [address] Bacteria,Urine None Seen Normal None Seen [facility] Comment on above: Order Comment: Name Collection Type:: Clean-Voided Midstream Performed By: #### A DDONUAPLUS #### [facility] [address] [place] [address] [place] Bilirubin,Urine Negative Normal Negative [facility] Comment on above: Order Comment: Name Collection Type:: Clean-Voided Midstream Performed By: #### A DDONUAPLUS #### [facility] [address] [place] [address] [place] Color (U) Jenkins Critically abnormal Yellow [facility] Comment on above: Order Comment: Name Collection Type:: Clean-Voided Midstream Performed By: #### A DDONUAPLUS #### [facility] [address] [place] [address] Glucose Ql (U) Normal Normal Normal [facility] Comment on above: Order Comment: Name Collection Type:: Clean-Voided Midstream Performed By: #### A DDONUAPLUS #### [facility] [address] [place] [address] [place] Hyaline Casts,Urine None Seen Normal 0-8 [facility] Comment on above: Order Comment: Name Collection Type:: Clean-Voided Midstream Result Comment: PERF ORMED BY: [place] [address] PATHOLOGIST [employer] MARKETING MANAGER DONTE WHITAKER M.D. Performed By: #### A DDONUAPLUS #### [facility] [address] [place] [address] [place] Ketones Ql (U) Negative Normal Negative [facility] Comment on above: Order Comment: Name Collection Type:: Clean-Voided Midstream Performed By: #### A DDONUAPLUS #### [facility] [address] [place] [address] [place] Leukocyte esterase Test strip Ql (U) 1+ High Negative [facility] Comment on above: Order Comment: Name Collection Type:: Clean-Voided Midstream Performed By: #### A DDONUAPLUS #### [facility] [address] [place] [address] [place] Nitrite,Urine Negative Normal Negative [facility] Comment on above: Order Comment: Name Collection Type:: Clean-Voided Midstream Performed By: #### A DDONUAPLUS #### [address] Occult Blood,Urine 3+ High Negative [facility] Comment on above: Order Comment: Name Collection Type:: Clean-Voided Midstream Result Comment: PERF ORMED BY: [place] [address] PATHOLOGIST [employer] MARKETING MANAGER DONTE WHITAKER M.D. Performed By: #### A DDONUAPLUS #### [address] pH (U) 5.5 [pH] Normal 5.0-9.0 [facility] Comment on above: Order Comment: Name Collection Type:: Clean-Voided Midstream Performed By: #### A DDONUAPLUS #### [place] [address] [place] Protein,Urine Trace High Negative [facility] Comment on above: Order Comment: Name Collection Type:: Clean-Voided Midstream Performed By: #### A DDONUAPLUS #### [address] RBC,Urine Innumerable High 0-4 [facility] Comment on above: Order Comment: Name Collection Type:: Clean-Voided Midstream Performed By: #### A DDONUAPLUS #### [address] Specificy [place],Urine 1.018 Normal 1.001-1.030 [facility] Comment on above: Order Comment: Name Collection Type:: Clean-Voided Midstream Performed By: #### A DDONUAPLUS #### [address] Squamous Epithelial Cell,Urine None Seen Normal 0-2 [facility] Comment on above: Order Comment: Name Collection Type:: Clean-Voided Midstream Performed By: #### A DDONUAPLUS #### [address] Urobilinogen,Urine Normal Normal Normal [facility] Comment on above: Order Comment: Name Collection Type:: Clean-Voided Midstream Performed By: #### A DDONUAPLUS #### [facility] [address] WBC,Urine 1-2 Normal 0-4 [facility] Comment on above: Order Comment: Name Collection Type:: Clean-Voided Midstream Performed By: #### A DDONUAPLUS #### [facility] [address] Eosinophils Auto (Bld) [#/Vo l]Ordered By: Aracelis Robertson on 07-19-2023 Eosinophils (Bld) [#/Vol] 0.1 10*3/uL 0.0-0.45 [facility] Eosinophils/100 WBC Auto (Bl d)Ordered By: Aracelis Robertson on 07-19-2023 Eosinophils/100 WBC (Bld) 1.6 % . [facility] Erythrocyte distribution wid th Auto (RBC) [Ratio]Ordered By: Aracelis Robertson on 07-19-2023 Erythrocyte distribution width (RBC) [Ratio] 12.7 % 12.0-14.8 [facility] Globulin Calc (S) [Mass/Vol] Ordered By: Aracelis Robertson on 07-19-2023 Globulin (S) [Mass/Vol] 2.1 g/dL [facility] Glucose [Mass/volume] in Ser um or PlasmaOrdered By: Aracelis Robertson on 07-19-2023 Glucose [Mass/Vol] 105 mg/dL 70-100 [facility] Comment on above: ADA recommended refe rence rangeRandom Glucose Reference Range is dependent on time and content of last meal. Glucose of more than 200 mg/dL in a nonstressed, ambulatory subject supports the diagnosis of Diabetes Mellitus. Hematocrit Auto (Bld) [Volum e fraction]Ordered By: Aracelis Robertson on 07-19-2023 Hematocrit (Bld) [Volume fraction] 44.2 % 38.8-50.0 [facility] Hemoglobin [Mass/volume] in BloodOrdered By: Aracelis Robertson on 07-19-2023 Hemoglobin (Bld) [Mass/Vol] 15.2 g/dL 13.0-17.0 [facility] Hepatic Panelon 07-19-2023 Albumin [Mass/Vol] 4.8 g/dL Normal 3.5-5.7 [facility] Comment on above: Performed By: #### H EPATIC, CBC, LIPASE, BMP #### [facility] [address] Albumin/Globulin [Mass ratio] 2.3 {ratio} Normal [facility] Comment on above: Performed By: #### H EPATIC, CBC, LIPASE, BMP #### [facility] [address] ALP [Catalytic activity/Vol] 55 U/L Normal 34-104 [facility] Comment on above: Performed By: #### H EPATIC, CBC, LIPASE, BMP #### [facility] [address] ALT [Catalytic activity/Vol] 54 U/L High 7-52 [facility] Comment on above: Performed By: #### H EPATIC, CBC, LIPASE, BMP #### [facility] [address] [place] [address] [place] AST [Catalytic activity/Vol] 21 U/L Normal 13-39 [facility] Comment on above: Performed By: #### H EPATIC, CBC, LIPASE, BMP #### [facility] [address] [place] [address] [place] Bilirubin [Mass/Vol] 0.6 mg/dL Normal 0.3-1.0 [facility] Comment on above: Performed By: #### H EPATIC, CBC, LIPASE, BMP #### [facility] [address] [place] [address] [place] Bilirubin,Indirect 0.5 mg/dL Normal [facility] Comment on above: Performed By: #### H EPATIC, CBC, LIPASE, BMP #### [facility] [address] Bilirubin.indirect [Mass/Vol] 0.10 mg/dL Normal 0.03-0.18 [facility] Comment on above: Performed By: #### H EPATIC, CBC, LIPASE, BMP #### [facility] [address] Globulin (S) [Mass/Vol] 2.1 g/dL Normal [facility] Comment on above: Performed By: #### H EPATIC, CBC, LIPASE, BMP #### [facility] [address] Protein [Mass/Vol] 6.9 g/dL Normal 6.4-8.9 [facility] Comment on above: Performed By: #### H EPATIC, CBC, LIPASE, BMP #### [facility] [address] Ketones Auto test strip (U) [Mass/Vol]Ordered By: PROVIDER TEMP on 07-19-2023 Ketones (U) [Mass/Vol] Negative Negative [facility] - UrinalysisOrder ed By: PROVIDER TEMP on 07-19-2023 Hyaline casts LM Ql (Urine sed) None seen [LPF] 0-8 [facility] Leukocytes [#/volume] correc michael for nucleated erythrocytes in Blood by Automated counOrdered By: Aracelis Robertson on 07-19-2023 WBC corrected for nucl RBC Auto (Bld) [#/Vol] 7.8 10*3/uL 4.1-10.5 [facility] Lipaseon 07-19-2023 Lipase [Catalytic activity/Vol] 43.0 U/L Normal 11.0-82.0 [facility] Comment on above: Result Comment: PERF ORMED BY: [facility] [address] [place] [address] PATHOLOGIST STRATE[employer]IC MARKETING MANAGER DONTE WHITAKER M.D. Performed By: #### H EPATIC, CBC, LIPASE, BMP #### [facility] [address] Lipase [Enzymatic activity/v olume] in Serum or PlasmaOrdered By: Aracelis Robertson on 07-19-2023 Lipase [Catalytic activity/Vol] 43.0 U/L 11.0-82.0 [facility] Lymphocytes Auto (Bld) [#/Vo l]Ordered By: Aracelis Robertson on 07-19-2023 Lymphocytes (Bld) [#/Vol] 2.1 10*3/uL 1.00-4.8 [facility] Lymphocytes/100 WBC Auto (Bl d)Ordered By: Aracelis Robertson on 07-19-2023 Lymphocytes/100 WBC (Bld) 27.4 % . [facility] MCH Auto (RBC) [Entitic mass ]Ordered By: Aracelis Robertson on 07-19-2023 MCH (RBC) [Entitic mass] 31.7 pg 27.5-35.2 [facility] MCHC Auto (RBC) [Mass/Vol]Or dered By: Aracelis Robertson on 07-19-2023 MCHC (RBC) [Mass/Vol] 34.3 g/dL 32.5-35.6 [facility] MCV Auto (RBC) [Entitic vol] Ordered By: Aracelis Robertson on 07-19-2023 MCV (RBC) [Entitic vol] 92.3 fL 83.5-101 [facility] Monocyte distribution width [Entitic volume] in Blood by AutomatedOrdered By: Aracelis Robertson on 07-19-2023 Monocyte distribution width Auto (Bld) [Entitic vol] 16.55 % 0.00-20.00 [facility] Monocytes Auto (Bld) [#/Vol] Ordered By: Aracelis Robertson on 07-19-2023 Monocytes (Bld) [#/Vol] 0.6 10*3/uL 0.0-0.8 [facility] Monocytes/100 WBC Auto (Bld) Ordered By: Aracelis Robertson on 07-19-2023 Monocytes/100 WBC (Bld) 7.1 % . [facility] Neutrophils Auto (Bld) [#/Vo l]Ordered By: Aracelis Robertson on 07-19-2023 Neutrophils (Bld) [#/Vol] 4.9 10*3/uL 1.8-7.7 [facility] Neutrophils/100 WBC Auto (Bl d)Ordered By: Aracelis Robertson on 07-19-2023 Neutrophils/100 WBC (Bld) 63.1 % . [facility] Nitrite Test strip Ql (U)Ord ered By: PROVIDER TEMP on 07-19-2023 Nitrite Ql (U) Negative Negative [facility] No Panel InformationOrdered By: Aracelis Robertson on 07-19-2023 Estimated GFR (CKD-EPI) > 60.0 mL/Min [facility] Creatinine Clearance (Chem 115.43 [facility] Nucleated erythrocytes [Pres ence] in Blood by Automated countOrdered By: Aracelis Robertson on 07-19-2023 Nucleated RBC Auto Ql (Bld) 0.1 /100{WBC} 0-0.5 [facility] Platelet mean volume Auto (B ld) [Entitic vol]Ordered By: Aracelis Robertson on 07-19-2023 Platelet mean volume (Bld) [Entitic vol] 8.4 fL 6.6-10.1 [facility] Platelets Auto (Bld) [#/Vol] Ordered By: Aracelis Robertson on 07-19-2023 Platelets (Bld) [#/Vol] 244 10*3/uL 150-450 [facility] Potassium [Moles/volume] in Serum or PlasmaOrdered By: Aracelis Robertson on 07-19-2023 Potassium [Moles/Vol] 3.7 mmol/L 3.5-5.1 [facility] Protein Auto test strip (U) [Mass/Vol]Ordered By: PROVIDER TEMP on 07-19-2023 Protein (U) [Mass/Vol] Trace mg/dL Negative [facility] Protein [Mass/volume] in Ser um or PlasmaOrdered By: Aracelis Robertson on 07-19-2023 Protein [Mass/Vol] 6.9 g/dL 6.4-8.9 [facility] RBC Auto (Bld) [#/Vol]Ordere d By: Aracelis Robertson on 07-19-2023 RBC (Bld) [#/Vol] 4.79 10*6/uL 3.90-5.60 [facility] Serum or plasma albumin/glob ulin mass ratioOrdered By: Aracelis Robertson on 07-19-2023 Albumin/Globulin [Mass ratio] 2.3 {ratio} [facility] Serum or plasma anion gap de terminationOrdered By: Aracelis Robertson on 07-19-2023 Anion gap [Moles/Vol] 10.5 mmol/L 6.0-15.0 [facility] Serum or plasma non-glucuron idated bilirubin measurement (mass/volume)Ordered By: Aracelis Robertson on 07-19-2023 Bilirubin.indirect [Mass/Vol] 0.5 mg/dL [facility] Sodium [Moles/volume] in Ser um or PlasmaOrdered By: Aracelis Robertson on 07-19-2023 Sodium [Moles/Vol] 139 mmol/L 136-145 [facility] Specific gravity Auto test s trip (U) [Rel density]Ordered By: PROVIDER TEM on 07-19-2023 Specific gravity (U) [Rel density] 1.018 1.001-1.030 [facility] Squamous epithelial cells de tection in urine sediment by light microscopyOrdered By: PROVIDER [facility] on 07-19-2023 Epithelial cells.squamous LM Ql (Urine sed) None seen [HPF] 0-2 [facility] Urea nitrogen [Mass/volume] in Serum or PlasmaOrdered By: Aracelis Robertson on 07-19-2023 Urea nitrogen [Mass/Vol] 12 mg/dL 7-25 [facility] Urine bacteria detection by automated methodOrdered By: PROVIDER [facility] on 07-19-2023 Bacteria Auto Ql (U) None seen None Seen [facility] Urine clarity by refractomet ry automatedOrdered By: PROVIDER [facility] on 07-19-2023 Clarity Refractometry automated (U) Cloudy Clear [facility] Urine glucose measurement by automated test strip (mass/volume)Ordered By: PROVIDER TEM on 07-19-2023 Glucose Auto test strip (U) [Mass/Vol] Normal mg/dL Normal [facility] Urine hemoglobin detection b y automated test stripOrdered By: PROVIDER TEM on 07-19-2023 Hemoglobin Auto test strip Ql (U) 3+ Negative [facility] Urine leukocyte esterase det ection by automated test stripOrdered By: PROVIDER TEM on 07-19-2023 Leukocyte esterase Auto test strip Ql (U) 1+ Negative [facility] Urobilinogen Auto test strip (U) [Mass/Vol]Ordered By: PROVIDER TEMP on 07-19-2023 Urobilinogen (U) [Mass/Vol] Normal mg/dL Normal [facility] WBC Auto (Bld) [#/Vol]Ordere d By: Aracelis Sonaliabiel on 07-19-2023 WBC (Bld) [#/Vol] 7.8 10*3/uL 4.1-10.5 [facility] pH Auto test strip (U)Ordere d By: PROVIDER TEMP on 07-19-2023 pH (U) 5.5 [pH] 5.0-9.0 [facility] Quick Strepon 07-07-2023 S. pyogenes Org specific cx Ql (Throat) Negative [employer] Other Quick Strep [facility] Other SARS-CoV-2 (COVID-19) RNA NA A+probe Ql (Resp)on 07-07-2023 SARS-CoV-2 (COVID-19) RNA DANILO+probe Ql (Unsp spec) Negative [facility] Other CARDIAC ELVIRA ADMITon 023 CK [Catalytic activity/Vol] 168 U/L Normal 39-308 [facility] Comment on above: Performed By: #### B JENNIFER, HECTOR #### [facility] [address] [place] [address] [address] Silvia De La Cruz CK.MB [Mass/Vol] 1.06 ng/mL Normal <=3.60 [facility] Comment on above: Performed By: #### B JENNIFER, HECTOR #### [facility] [address] [place] [address] [address] Silvia De La Cruz HSTROP 5.7 pg/mL Normal 4.0-76.1 [facility] Comment on above: Result Comment: CUT- OFF POINTS HAVE BEEN ESTABLISHED BASED ON THE FOURTH UNIVERSAL DEFINITIONS OF MYOCARDIAL INFARCTION. THE UPPER REFERENCE LIMIT (URL) OF TROPONIN, DEFINED THE 99TH PERCENTILE OF cTnI DISTRIBUTION IN A REFERENCE POPULATION, HAS BEEN CONFIRMED THE DECISION THRESHOLD FOR CO DIAGNOSIS. Performed By: #### B JENNIFER, CMADM #### [facility] [address] [place] [address] Dr. Silvia De La Cruz MATT 38 ng/mL Normal 16-96 [facility] Comment on above: Performed By: #### B MP, CMADM #### [facility] [address] [place] [address] Dr. Silvia De La Cruz CBC AUTO DIFFon 11-04-2022 BASO # 0.1 103/ul Normal 0.0-0.1 [facility] Comment on above: Performed By: #### C BC #### [facility] [address] [place] [address] Dr. Silvia De La Cruz Basophils/100 WBC (Bld) 1.0 % Normal 0.2-2.0 [facility] Comment on above: Performed By: #### C BC #### [facility] [address] [place] [address] Dr. Silvia De La Cruz EO # 0.3 103/ul Normal 0.0-0.7 [facility] Comment on above: Performed By: #### C BC #### [facility] [address] [place] [address] Dr. Silvia De La Cruz Eosinophils/100 WBC (Bld) 6.9 % Normal 0.9-7.0 [facility] Comment on above: Performed By: #### C BC #### [facility] [address] [place] [address] Dr. Silvia De La Cruz Erythrocyte distribution width (RBC) [Ratio] 11.4 % Normal 11.0-15.0 [facility] Comment on above: Performed By: #### C BC #### [facility] [address] [place] [address] Dr. Silvia De La Cruz Hematocrit (Bld) [Volume fraction] 40.3 % Critically low 42.0-54.0 [facility] Comment on above: Performed By: #### C BC #### [facility] [address] [place] [address] Dr. Silvia De La Cruz Hemoglobin (Bld) [Mass/Vol] 13.6 g/dL Critically low 14.0-18.0 [facility] Comment on above: Performed By: #### C BC #### [facility] [address] [place] [address] Dr. Silvia De La Cruz IG # 0.00 10e3/ul Normal 0.00-0.03 [facility] Comment on above: Performed By: #### C BC #### [facility] [address] [place] [address] Dr. Silvia De La Cruz IG % 0.0 % Normal 0.0-0.5 [facility] Comment on above: Performed By: #### C BC #### [facility] [address] [place] [address] Dr. Silvia De La Cruz LYMPH # 2.4 103/ul Normal 1.2-3.8 [facility] Comment on above: Performed By: #### C BC #### [facility] [address] [place] [address] Dr. Silvia De La Cruz Lymphocytes/100 WBC (Bld) 49.1 % Normal 20.5-60.0 [facility] Comment on above: Performed By: #### C BC #### [facility] [address] [place] [address] Dr. Silvia De La Cruz MANUAL DIFF REQ NO Normal [facility] Comment on above: Performed By: #### C BC #### [facility] [address] [place] [address] Dr. Silvia De La Cruz MCH (RBC) [Entitic mass] 31.1 pg Normal 25.9-34.0 [facility] Comment on above: Performed By: #### C BC #### [facility] [address] [place] [address] Dr. Silvia De La Cruz MCHC (RBC) [Mass/Vol] 33.7 g/dL Normal 29.9-35.2 [facility] Comment on above: Performed By: #### C BC #### [facility] [address] [place] [address] Dr. Silvia De La Cruz MCV (RBC) [Entitic vol] 92.0 fL Normal 80.0-94.0 [facility] Comment on above: Performed By: #### C BC #### [facility] [address] [place] [address] Dr. Silvia De La Cruz MONO # 0.6 103/ul Normal 0.3-0.8 [facility] Comment on above: Performed By: #### C BC #### [facility] [address] [place] [address] Dr. Silvia De La Cruz Monocytes/100 WBC (Bld) 12.3 % Critically high 1.7-12. 0 [facility] Comment on above: Performed By: #### C BC #### [facility] [address] [place] [address] Dr. Silvia De La Cruz NEUT # 1.5 103/ul Normal 1.4-6.5 [facility] Comment on above: Performed By: #### C BC #### [facility] [address] [place] [address] Dr. Silvia De La Cruz Neutrophils/100 WBC (Bld) 30.7 % Critically low 43.0-75.0 [facility] Comment on above: Performed By: #### C BC #### [facility] [address] [place] [address] Dr. Silvia De La Cruz Platelet mean volume (Bld) [Entitic vol] 10.6 fL Normal 9.5-13.5 [facility] Comment on above: Performed By: #### C BC #### [facility] [address] [place] [address] Dr. Silvia De La Cruz PLT 259 103/ul Normal 150-450 [facility] Comment on above: Performed By: #### C BC #### [facility] [address] [place] [address] Dr. Silvia eD La Cruz RBC 4.38 106/ul Critically low 4.70-6.10 [facility] Comment on above: Performed By: #### C BC #### [facility] [address] [place] [address] Dr. Silvia De La Cruz WBC 4.8 103/ul Normal 4.0-11.0 [facility] Comment on above: Performed By: #### C BC #### [facility] [address] [place] [address] Dr. Silvia De La Cruz D-DIMERon 11-04-2022 D-DIMER 0.36 mg/L FEU Normal <=0.59 [facility] Comment on above: Performed By: #### D DIM #### [facility] [address] [place] [address] Dr. Siliva De La Cruz D-DIMER COMMENTS SEE BELOW Normal [facility] Comment on above: Result Comment: Incr eases [...] hospitalization. Performed By: #### D DIM #### [facility] [address] [place] [address] Dr. Silvia De La Cruz PROF CHEM 8 (BAS METB)on Anion gap [Moles/Vol] 11.0 mmol/L Normal [facility] Comment on above: Performed By: #### B HECTOR RODRIGUEZ #### [facility] [address] [place] [address] Dr. Silvia De La Cruz Calcium [Mass/Vol] 8.9 mg/dL Normal 8.5-10.1 [facility] Comment on above: Performed By: #### B JUNO RODRIGUEZDM #### [facility] [address] [place] [address] Dr. Silvia De La Cruz Chloride [Moles/Vol] 101 mmol/L Normal 98-107 [facility] Comment on above: Performed By: #### B JUNO RODRIGUEZDM #### [facility] [address] [place] [address] Dr. Silvia De La Cruz CO2 [Moles/Vol] 29.1 mmol/L Normal 21.0-32.0 [facility] Comment on above: Performed By: #### B JUNO RODRIGUEZDM #### [facility] [address] [place] [address] Dr. Silvia De La Cruz Creatinine [Mass/Vol] 0.77 mg/dL Normal 0.70-1.30 [facility] Comment on above: Performed By: #### B JENNIFER, CMADM #### [facility] [address] [place] [address] Dr. Silvia De La Cruz EGFR-AF ESTONIAN >60 Normal >=60 [facility] Comment on above: Performed By: #### B JENNIFER, CMADM #### [facility] [address] [address] [address] Silvia De La Cruz EGFR-NON AF ESTONIAN >60 Normal >=60 [facility] Comment on above: Performed By: #### B JENNIFER, CMADM #### [facility] [address] [address] [address] Silvia De La Cruz Glucose [Mass/Vol] 102 mg/dL Normal 74-106 [facility] Comment on above: Performed By: #### B JENNIFER, JUNODM #### [facility] [address] [place] [address] Dr. Silvia De La Cruz Potassium [Moles/Vol] 4.1 mmol/L Normal 3.5-5.1 [facility] Comment on above: Performed By: #### B JENNIFER, JUNODM #### [facility] [address] [place] [address] Dr. Silvia De La Cruz Sodium [Moles/Vol] 137 mmol/L Normal 136-145 [facility] Comment on above: Performed By: #### B JENNIFER, JUNODM #### [facility] [address] [place] [address] Dr. Silvia De La Cruz Urea nitrogen [Mass/Vol] 16.0 mg/dL Normal 7.0-18.0 [facility] Comment on above: Performed By: #### B JENNIFER, JUNODM #### [facility] [address] [place] [address] Dr. Silvia De La Cruz Urea nitrogen/Creatinine [Mass ratio] 20.8 mg/mg Normal [facility] Comment on above: Performed By: #### B JENNIFER, JUNODM #### [facility] [address] [place] [address] Dr. Silvia De La Cruz XR CHEST [...] LEONA JACK Date: 2022-11-04 00:16 Normal [facility] Drugs of Abuse Panelon Drug Screen Comment see below Normal [facility] Comment on above: Result Comment: This method is a screening test to detect only these drug classes as part of a medical workup. Confirmatory testing by another method should be ordered if clinically indicated. Performed By: #### U DRGS #### [facility] [address] [place] [address] UR Amphetamines Screen Negative Normal Negative < [facility] Comment on above: Performed By: #### U DRGS #### [facility] [address] [place] [address] UR Barbiturates Screen Negative Normal Negative < [facility] Comment on above: Performed By: #### U DRGS #### [facility] [address] [place] [address] UR Benzo Screen Positive Abnormal Negative < [facility] Comment on above: Performed By: #### U DRGS #### [facility] [address] [place] [address] UR Cannabinoids Screen Positive Abnormal Negative < [facility] Comment on above: Performed By: #### U DRGS #### [facility] [address] [place] [address] UR Cocaine Screen Negative Normal Negative < [facility] Comment on above: Performed By: #### U DRGS #### [facility] [address] [place] [address] UR Fentanyl Screen Positive Abnormal Negative < [facility] Comment on above: Performed By: #### U DRGS #### [facility] [address] [place] [address] UR Methadone Screen Negative Normal Negative < [facility] Comment on above: Performed By: #### U DRGS #### [facility] [address] [place] [address] UR Opiates Screen Negative Normal Negative < [facility] Comment on above: Performed By: #### U DRGS #### [facility] [address] [place] [address] UR Oxycodone Screen Negative Normal Negative < [facility] Comment on above: Performed By: #### U DRGS #### [facility] [address] [place] [address] UR PCP Screen Negative Normal Negative < [facility] Comment on above: Performed By: #### U DRGS #### [facility] [address] [place] [address] UR Propoxyphene Screen Negative Normal Negative < [facility] Comment on above: Performed By: #### U DRGS #### [facility] [address] [place] [address] Urine Drug Screenon 08-21-20 22 Amphetamine Screen, Urine Negative Negative <1000 ng/mL [facility] [employer] Barbiturate Screen, Ur Negative Negat kira < 200 ng/mL [facility] [employer] Benzodiazepine Screen, Urine Positive Abnormal Negative < 200 ng/mL [facility] [employer] Cannabinoid Scrn, Ur Positive Abnormal Negativ e < 50 ng/mL [facility] [employer] Cocaine Metabolite Screen, Urine Negative Negative < 300 ng/mL [facility] [employer] Drug Screen Comment: see below [facility] Comment on above: This method is a scr eening test to detect only these drug classes as part of a medical workup. Confirmatory testing by another method should be ordered if clinically indicated. FENTANYL SCREEN, URINE Positive Abnormal Negat kira < 50 ng/mL [facility] Interpretation and review of laboratory results Abnormal [facility] Methadone Screen, Urine Negative Nega tive <300 ng/mL [facility] Opiate Scrn, Ur Negative Negative < 300 ng/mL [facility] Oxycodone Urine Negative Negative <10 0 ng/mL [facility] PCP Screen, Urine Negative Negative < 25 ng/mL [facility] Propoxyphene Scrn, Ur Negative Negati ve <300 ng/mL [facility] POC Influenza A/B and SARS A ntigen manually resultedOrdered By: Skip Sarmiento on 08-02-2022 FLUAV Ag IA.rapid Ql (Nph) Negative Negative [facility] FLUBV Ag IA.rapid Ql (Nph) Negative Negative [facility] INTERNAL CONTROLS Acceptable [facility] SARS-CoV+SARS-CoV-2 (COVID-19) Ag IA.rapid Ql (Resp) Negative Presumptive Negative [facility] CARDIAC ELVIRA ADMITon 022 CK [Catalytic activity/Vol] 181 U/L Normal 39-308 [facility] Comment on above: Performed By: #### B HECTOR RODRIGUEZ ####[facility] [id number] [id number] De La Cruz CK.MB [Mass/Vol] 1.22 ng/mL Normal <=3.60 [facility] Comment on above: Performed By: #### B HECTOR RODRIGUEZ ####[facility] [address] [id number]. Silvia De La Cruz HSTROP 5.0 pg/mL Normal 4.0-76.1 [facility] Comment on above: Result Comment: CUT- OFF POINTS HAVE BEEN ESTABLISHED BASED ON THE FOURTH UNIVERSAL DEFINITIONS OF MYOCARDIAL INFARCTION. THE UPPER REFERENCE LIMIT (URL) OF TROPONIN, DEFINED THE 99TH PERCENTILE OF cTnI DISTRIBUTION IN A REFERENCE POPULATION, HAS BEEN CONFIRMED THE DECISION THRESHOLD FOR CO DIAGNOSIS. Performed By: #### B HECTOR RODRIGUEZ ####[facility] [address] [place], [place] [address]ViFabrice De La Cruz MATT 44 ng/mL Normal 16-96 [facility] Comment on above: Performed By: #### B MP, CMADM ####[facility] [address] [id number]. Silvia De La Cruz CBC AUTO DIFFon 03-23-2022 BASO # 0.1 103/ul Normal 0.0-0.1 [facility] Comment on above: Performed By: #### C BC #### [facility] [address] [address] [address] Silvia De La Cruz Basophils/100 WBC (Bld) 0.9 % Normal 0.2-2.0 [facility] Comment on above: Performed By: #### C BC #### [facility] [address] [place] [address] Dr. Silvia De La Cruz EO # 0.3 103/ul Normal 0.0-0.7 [facility] Comment on above: Performed By: #### C BC #### [facility] [address] [place] [address] Dr. Silvia De La Cruz Eosinophils/100 WBC (Bld) 3.9 % Normal 0.9-7.0 [facility] Comment on above: Performed By: #### C BC #### [facility] [address] [place] [address] Dr. Silvia De La Cruz Erythrocyte distribution width (RBC) [Ratio] 11.3 % Normal 11.0-15.0 [facility] Comment on above: Performed By: #### C BC #### [facility] [address] [place] [address] Dr. Silvia De La Cruz Hematocrit (Bld) [Volume fraction] 40.8 % Critically low 42.0-54.0 [facility] Comment on above: Performed By: #### C BC #### [facility] [address] [place] [address] Dr. Silvia De La Cruz Hemoglobin (Bld) [Mass/Vol] 14.1 g/dL Normal 14.0-18.0 [facility] Comment on above: Performed By: #### C BC #### [facility] [address] [place] [address] Dr. Silvia De La Cruz IG # 0.01 10e3/ul Normal 0.00-0.03 [facility] Comment on above: Performed By: #### C BC #### [facility] [address] [place] [address] Dr. Silvia De La Cruz IG % 0.1 % Normal 0.0-0.5 [facility] Comment on above: Performed By: #### C BC #### [facility] [address] [place] [address] Dr. Silvia De La Cruz LYMPH # 3.1 103/ul Normal 1.2-3.8 [facility] Comment on above: Performed By: #### C BC #### [facility] [address] [place] [address] Dr. Silvia De La Cruz Lymphocytes/100 WBC (Bld) 45.7 % Normal 20.5-60.0 [facility] Comment on above: Performed By: #### C BC #### [facility] [address] [place] [address] Dr. Silvia De La Cruz MANUAL DIFF REQ NO Normal [facility] Comment on above: Performed By: #### C BC #### [facility] [address] [place] [address] Dr. Silvia De La Cruz MCH (RBC) [Entitic mass] 31.7 pg Normal 25.9-34.0 [facility] Comment on above: Performed By: #### C BC #### [facility] [address] [place] [address] Dr. Silvia De La Cruz MCHC (RBC) [Mass/Vol] 34.6 g/dL Normal 29.9-35.2 [facility] Comment on above: Performed By: #### C BC #### [facility] [address] [place] [address] Dr. Silvia De La Cruz MCV (RBC) [Entitic vol] 91.7 fL Normal 80.0-94.0 [facility] Comment on above: Performed By: #### C BC #### [facility] [address] [place] [address] Dr. Silvia De La Cruz MONO # 0.6 103/ul Normal 0.3-0.8 [facility] Comment on above: Performed By: #### C BC #### [facility] [address] [address] [address] Silvia De La Cruz Monocytes/100 WBC (Bld) 9.6 % Normal 1.7-12.0 [facility] Comment on above: Performed By: #### C BC #### [facility] [address] [address] [address] Silvia De La Cruz NEUT # 2.7 103/ul Normal 1.4-6.5 [facility] Comment on above: Performed By: #### C BC #### [facility] [address] [address] [address] Silvia De La Cruz Neutrophils/100 WBC (Bld) 39.8 % Critically low 43.0-75.0 [facility] Comment on above: Performed By: #### C BC #### [facility] [address] [place] [address] Dr. Silvia De La Cruz Platelet mean volume (Bld) [Entitic vol] 10.8 fL Normal 9.5-13.5 [facility] Comment on above: Performed By: #### C BC #### [facility] [address] [place] [address] Dr. Silvia De La Cruz PLT 259 103/ul Normal 150-450 [facility] Comment on above: Performed By: #### C BC #### [facility] [address] [place] [address] Dr. Silvia De La Cruz RBC 4.45 106/ul Critically low 4.70-6.10 [facility] Comment on above: Performed By: #### C BC #### [facility] [address] [address] [address] Silvia De La Cruz WBC 6.7 103/ul Normal 4.0-11.0 [facility] Comment on above: Performed By: #### C BC #### [facility] [address] [place] [address] Dr. Silvia De La Cruz [facility] SARS-CoV-2 (COVID-19) RNA DANILO+probe Ql (Unsp spec) Not detected Normal NOT DETECTED [facility] Comment on above: Result Comment: When diagnostic [...] the [place] of Health and Human Service's declaration that [...] longer be used). Performed By: #### C VDTB #### [facility] [address] [place] [address] Dr. Silvia De La Cruz INFLUENZA A AND B [facility] 03-23 [facility] SEE BELOW Normal [facility] Comment on above: Result Comment: Nega tive for Flu A protein angiten. Infection due to Flu A cannot be ruled out. Flu A angiten in the sample may be below the detection limit of the test. Performed By: #### I NFLUAB #### [facility] [address] [place] [address] Dr. Silvia De La [facility] Normal [facility] Comment on above: Result Comment: Nega tive for Flu B protein antigen. Infection due to Flu B cannot be ruled out. Flu B antigen in the sample may be below the detection limit of the test. Performed By: #### I NFLUAB #### [facility] [address] [place] [address] Dr. Silvia De La Cruz INFLUENZA A AG Negative Normal NEGATIVE SEE COMMENT [facility] Comment on above: Performed By: #### I NFLUAB #### [facility] [address] [place] [address] Dr. Silvia De La Cruz INFLUENZA B AG Negative Normal NEGATIVE SEE COMMENT [facility] Comment on above: Performed By: #### I NFLUAB #### [facility] [address] [address] [address] Silvia De La Cruz INTERNAL CONTROLS Within Normal Limits Normal Within Normal Limits [facility] Comment on above: Performed By: #### I NFLUAB #### [facility] [address] [address] [address] Silvia De La Cruz PROF CHEM 8 (BAS METB)on Anion gap [Moles/Vol] 10.7 mmol/L Normal [facility] Comment on above: Performed By: #### B HECTOR RODRIGUEZ ####[facility] [id number] [address]Dr. Silvia De La Cruz Calcium [Mass/Vol] 9.1 mg/dL Normal 8.5-10.1 [facility] Comment on above: Performed By: #### B HECTOR RODRIGUEZ ####[facility] [address] [address]Dr. Silvia De La Cruz Chloride [Moles/Vol] 105 mmol/L Normal 98-107 [facility] Comment on above: Performed By: #### HECTOR Segundo MP ####[facility] [address] [place], [place] [address]Dr. Silvia De La Cruz CO2 [Moles/Vol] 28.0 mmol/L Normal 21.0-32.0 [facility] Comment on above: Performed By: #### B JUNO RODRIGUEZDM ####[facility] [address] [address]Dr. Silvia De La Cruz Creatinine [Mass/Vol] 0.98 mg/dL Normal 0.70-1.30 [facility] Comment on above: Performed By: #### Sanya RODRIGUEZ CMADM ####[facility] [address] [address]Dr. Silvia De La Cruz EGFR-AF ESTONIAN >60 Normal >=60 [facility] Comment on above: Performed By: #### Sanya RODRIGUEZ, CMADM ####[facility] [address] [place], [place] [address]Dr. Silvia De La Cruz EGFR-NON AF ESTONIAN >60 Normal >=60 [facility] Comment on above: Performed By: #### B JENNIFER, HECTOR ####[facility] [address] [address]Dr. Silvia De La Cruz Glucose [Mass/Vol] 84 mg/dL Normal 74-106 [facility] Comment on above: Performed By: #### B JENNIFER, HECTOR ####[facility] [address] [address]Dr. Silvia De La Cruz Potassium [Moles/Vol] 3.7 mmol/L Normal 3.5-5.1 [facility] Comment on above: Performed By: #### B JENNIFER, HECTOR ####[facility] [address] [address]Dr. Silvia De La Cruz Sodium [Moles/Vol] 140 mmol/L Normal 136-145 [facility] Comment on above: Performed By: #### B JENNIFER, HECTOR ####[facility] [address] [address]Dr. Silvia De La Cruz Urea nitrogen [Mass/Vol] 14.0 mg/dL Normal 7.0-18.0 [facility] Comment on above: Performed By: #### B JENNIFER, HECTOR ####[facility] [address] [place], [place] [address]Dr. Silvia De La Cruz Urea nitrogen/Creatinine [Mass ratio] 14.3 mg/mg Normal [facility] Comment on above: Performed By: #### Sanya RODRIGUEZ, CMADM ####[facility] [address] [place], [place] [address]Dr. Silvia De La Cruz Covid-19 PCR ([facility])on 11-25 SARS-CoV-2 (COVID-19) RNA DANILO+probe Ql (Unsp spec) Not detected Normal NOT DETECTED [facility] Comment on above: Result Comment: This test is not yet approved or cleared by the [place] FDA. When there are no FDA-approved or cleared tests available, and other criteria are met, FDA can make tests available under an emergency access mechanism called an Emergency Use Authorization (EUA). The EUA for this test is supported by the [employer] of Health and Human Service's (HHS's) declaration [...] SARS-CoV-2. Performed By: #### C [facility] #### [facility] [address] [place] [address] Dr. Silvia De La Cruz Vital Signs Date Time Vital Sign Value Performing Clinician Facility 11-23-2023 13:00-0500 Body height 175.26 cm Vero Stern Other [facility] Other 11-23-2023 13:00-0500 Body mass index (BMI) [Ratio] 30.57 kg/m2 Vero Stern Other [facility] Other 11-23-2023 13:00-0500 Body temperature 98.2 [degF] Vero Stern Other [facility] Other 11-23-2023 13:00-0500 Body weight 93.9 kg Vero Stern Other [facility] Other 11-23-2023 13:00-0500 Diastolic blood pressure 72 mm[Hg] Vero Stern Other [facility] Other 11-23-2023 13:00-0500 SaO2% (BldA) [Mass fraction] 96 % Vero Stern Other [facility] Other 11-23-2023 13:00-0500 Systolic blood pressure 110 mm[Hg] Vero Stern Other [facility] Other 11-21-2023 14:40-0500 Body height 175.26 cm Pura Kay Other [facility] Other 11-21-2023 14:40-0500 Body mass index (BMI) [Ratio] 30.12 kg/m2 Pura Kay Other [facility] Other 11-21-2023 14:40-0500 Body temperature 101.9 [degF] Pura Kay Other [facility] Other 11-21-2023 14:40-0500 Body weight 92.53 kg Pura Kay Other [facility] Other 11-21-2023 14:40-0500 Respiratory rate 18 /min Pura Kay Other [facility] Other 11-21-2023 14:40-0500 SaO2% (BldA) [Mass fraction] 96 % Pura Kay Other [facility] Other 11-04-2023 11:00-0500 Body height 175.26 cm Joelle Carlos Other [facility] Other 11-04-2023 11:00-0500 Body mass index (BMI) [Ratio] 29.5 kg/m2 Joelle Carlos Other [facility] Other 11-04-2023 11:00-0500 Body weight 90.63 kg Joelle Carlos Other [facility] Other 11-04-2023 11:00-0500 Diastolic blood pressure 86 mm[Hg] Joelle Vailoroge Other [facility] Other 11-04-2023 11:00-0500 SaO2% (BldA) [Mass fraction] 98 % Joelle Vailoroge Other [facility] Other 11-04-2023 11:00-0500 Systolic blood pressure 128 mm[Hg] Joelle Carlos Other [facility] Other 09-27-2023 11:19-0500 Blood Pressure Location VERO TOLLIVER [facility] 09-27-2023 11:19-0500 Diastolic blood pressure 87 mm[Hg] VERO UNRULY [facility] 09-27-2023 11:19-0500 Heart rate 65 /min VERO UNRULY [facility] 09-27-2023 11:19-0500 Respiratory rate 16 /min VERO UNRULY [facility] 09-27-2023 11:19-0500 Systolic blood pressure 120 mm[Hg] VERO UNRULY [facility] 09-19-2023 08:30-0500 Body height 175.26 cm Vero Stern Other [facility] Other 09-19-2023 08:30-0500 Body mass index (BMI) [Ratio] 29.53 kg/m2 Vero Stern Other [facility] Other 09-19-2023 08:30-0500 Body weight 90.72 kg Vero Stern Other [facility] Other 09-19-2023 08:30-0500 Diastolic blood pressure 82 mm[Hg] Vero Stern Other [facility] Other 09-19-2023 08:30-0500 SaO2% (BldA) [Mass fraction] 98 % Vero Stern Other [facility] Other 09-19-2023 08:30-0500 Systolic blood pressure 122 mm[Hg] Vero Stern Other [facility] Other 08-08-2023 17:26-0400 Diastolic blood pressure 84 mm[Hg] PHYSICIAN NO [facility] 08-08-2023 17:26-0400 Heart rate 52 /min PHYSICIAN NO [facility] 08-08-2023 17:26-0400 Respiratory rate 16 /min PHYSICIAN NO [facility] 08-08-2023 17:26-0400 SaO2% (BldA) [Mass fraction] 98 % PHYSICIAN NO [facility] 08-08-2023 17:26-0400 Systolic blood pressure 122 mm[Hg] PHYSICIAN NO [facility] 08-08-2023 15:31-0400 Body height 175.26 cm PHYSICIAN NO [facility] 08-08-2023 15:31-0400 Body mass index (BMI) [Ratio] 28 kg/m2 PHYSICIAN NO [facility] 08-08-2023 15:31-0400 Body weight 86.18 kg PHYSICIAN NO [facility] 08-08-2023 13:55-0400 Body temperature 98.1 [degF] PHYSICIAN NO [facility] 07-25-2023 19:10-0400 Diastolic blood pressure 90 mm[Hg] PHYSICIAN NO [facility] 07-25-2023 19:10-0400 Heart rate 61 /min PHYSICIAN NO [facility] 07-25-2023 19:10-0400 Respiratory rate 16 /min PHYSICIAN NO [facility] 07-25-2023 19:10-0400 SaO2% (BldA) [Mass fraction] 96 % PHYSICIAN NO [facility] 07-25-2023 19:10-0400 Systolic blood pressure 127 mm[Hg] PHYSICIAN NO [facility] 07-25-2023 15:19-0400 Body height 175.26 cm PHYSICIAN NO [facility] 07-25-2023 15:19-0400 Body mass index (BMI) [Ratio] 28 kg/m2 PHYSICIAN NO [facility] 07-25-2023 15:19-0400 Body weight 86.18 kg PHYSICIAN NO [facility] 07-25-2023 15:08-0400 Body temperature 98.2 [degF] PHYSICIAN NO [facility] 07-25-2023 09:06-0400 Blood Pressure Location Mina BAEZ [facility] 07-25-2023 09:06-0400 Diastolic blood pressure 82 mm[Hg] Mina BAEZ [facility] 07-25-2023 09:06-0400 Heart rate 80 /min Mina BAEZ [facility] 07-25-2023 09:06-0400 Systolic blood pressure 134 mm[Hg] Mina BAEZ [facility] 07-19-2023 20:50-0400 Diastolic blood pressure 93 mm[Hg] PHYSICIAN NO [facility] 07-19-2023 20:50-0400 Heart rate 66 /min PHYSICIAN NO [facility] 07-19-2023 20:50-0400 Respiratory rate 20 /min PHYSICIAN NO [facility] 07-19-2023 20:50-0400 SaO2% (BldA) [Mass fraction] 99 % PHYSICIAN NO [facility] 07-19-2023 20:50-0400 Systolic blood pressure 138 mm[Hg] PHYSICIAN NO [facility] 07-19-2023 18:37-0400 Body height 175.26 cm PHYSICIAN NO [facility] 07-19-2023 18:37-0400 Body temperature 97.5 [degF] PHYSICIAN NO [facility] 07-19-2023 18:37-0400 Body weight 86.18 kg PHYSICIAN NO [facility] 07-07-2023 13:00-0400 Body height 175.26 cm La Nena Travis Other [employer] [facility] [employer] Other 07-07-2023 13:00-0400 Body mass index (BMI) [Ratio] 28.26 kg/m2 La Nena Travis Other [employer] [facility] [employer] Other 07-07-2023 13:00-0400 Body temperature 100.1 [degF] La Nena Travis Other [employer] Other 07-07-2023 13:00-0400 Body weight 86.82 kg La Nena Travis Other [employer] Other 07-07-2023 13:00-0400 Diastolic blood pressure 86 mm[Hg] La Nena Travis Other [employer] Other 07-07-2023 13:00-0400 Respiratory rate 18 /min La Nena Travis Other [employer] Other 07-07-2023 13:00-0400 SaO2% (BldA) [Mass fraction] 98 % La Nena Travis Other [employer] Other 07-07-2023 13:00-0400 Systolic blood pressure 128 mm[Hg] La Nena Tarvis Other [employer] Other 05-23-2023 15:50-0400 Body height 175.26 cm Claire Rothman Other [employer] Other 05-23-2023 15:50-0400 Body mass index (BMI) [Ratio] 27.76 kg/m2 Claire Rothman Other [employer] Other 05-23-2023 15:50-0400 Body temperature 99 [degF] Claire Rothman Other [employer] Other 05-23-2023 15:50-0400 Body weight 85.28 kg Claire Rothman Other [employer] Other 05-23-2023 15:50-0400 Diastolic blood pressure 82 mm[Hg] Claire Rothman Other [employer] Other 05-23-2023 15:50-0400 Respiratory rate 18 /min Claire Rothman Other [employer] Other 05-23-2023 15:50-0400 SaO2% (BldA) [Mass fraction] 99 % Claire Rothman Other [employer] Other 05-23-2023 15:50-0400 Systolic blood pressure 121 mm[Hg] Claire Rothman Other [employer] Other 08-21-2022 04:22-0400 Body height 172.7 cm Reece Briscoe MD Work Phone: [facility] 08-21-2022 04:22-0400 Body mass index (BMI) [Ratio] 28.89 kg/m2 Reece Briscoe MD Work Phone: [facility] 08-21-2022 04:22-0400 Body temperature 98.6 [degF] Reece Briscoe MD Work Phone: [facility] 08-21-2022 04:22-0400 Body weight 86.18 kg Reece Briscoe MD Work Phone: [facility] 08-21-2022 04:22-0400 Diastolic blood pressure 79 mm[Hg] Reece Briscoe MD Work Phone: [facility] 08-21-2022 04:22-0400 Heart rate 128 /min Reece Briscoe MD Work Phone: [facility] 08-21-2022 04:22-0400 Respiratory rate 18 /min Reece Briscoe MD Work Phone: [facility] 08-21-2022 04:22-0400 SaO2% (BldA) [Mass fraction] 96 % Reece Briscoe MD Work Phone: [facility] 08-21-2022 04:22-0400 Systolic blood pressure 154 mm[Hg] Reece Briscoe MD Work Phone: [facility] 08-02-2022 15:01-0400 Body temperature 98.71 [degF] Kasia Urbina APRN-FLAT GRINDER OPERATOR Work Phone: [facility] [employer] 08-02-2022 15:01-0400 Diastolic blood pressure 92 mm[Hg] Kasia Urbina APRN-FLAT GRINDER OPERATOR Work Phone: [facility] [employer] 08-02-2022 15:01-0400 Heart rate 91 /min Kasia Urbina APRN-FLAT GRINDER OPERATOR Work Phone: [facility] [employer] 08-02-2022 15:01-0400 Respiratory rate 18 /min Kasia Urbina COIL WINDING 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: [facility] [employer] 08-02-2022 15:01-0400 SaO2% (BldA) [Mass fraction] 99 % Kasia Urbina COIL WINDING 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: [facility] [employer] 08-02-2022 15:01-0400 Systolic blood pressure 157 mm[Hg] Kasia Urbina COIL WINDING 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: [facility] [facility] Encounters Encounter Date Encounter Type Care Provider Facility Start: 11-23-2023 End: 11-23-2023 ambulatory Vero Stern Other [employer] Other Start: 11-23-2023 Office outpatient vi sit 15 minutes Vero Stern [facility] Start: 11-21-2023 End: 11-21-2023 ambulatory Pura Kay Other [employer] Other Start: 11-21-2023 Office outpatient vi sit 15 minutes Pura Kay [facility] Start: 11-21-2023 Telephone encounter Vero Rai her [facility] Start: 11-07-2023 End: 11-07-2023 ambulatory Vero Stern Other [employer] Other Start: 11-07-2023 Telephone encounter Vero Rai her [facility] Start: 11-04-2023 End: 11-04-2023 ambulatory Joelle Gonzalez Other [employer] Other Start: 11-04-2023 Office outpatient ne w 45 minutes Joelle Gonzalez [facility] Start: 10-31-2023 End: 10-31-2023 ambulatory Vero Stern Other [employer] Other Start: 10-31-2023 Telephone encounter Vero Greenfielddejan her [facility] Start: 10-18-2023 End: 10-18-2023 ambulatory Vero Jarred Other [employer] Other Start: 10-18-2023 Telephone encounter Vero Greenfielddejan her [facility] Start: 09-27-2023 End: 09-28-2023 ambulatory VERO Carlitos TOLLIVER Facility:[facility] [place] Start: 09-27-2023 End: 09-27-2023 Patient encounter procedure VEROMARILU TOLLIVER [facility] Start: 09-19-2023 End: 09-19-2023 ambulatory Vero Jarred Other [employer] Other Start: 09-19-2023 Office outpatient ne w 30 minutes Vero Stern [facility] Start: 08-12-2023 End: 08-13-2023 ambulatory Mina BAEZ Facility:[facility] [place] Start: 08-12-2023 End: 08-12-2023 Patient encounter procedure Mina BAEZ [facility] Start: 08-08-2023 End: 08-08-2023 ambulatory Mina Baez Facility:[facility] Start: 08-08-2023 End: 08-08-2023 Admission to same day surgery center PHYSICIAN NO [facility] [place] [facility] [place] Start: 08-08-2023 End: 08-09-2023 ambulatory PHYSICIAN NO [facility] Work Phone: Start: 07-25-2023 End: 07-25-2023 ambulatory PHYSICIAN NO FAMILY Facility:[facility] Start: 07-25-2023 End: 07-25-2023 Admission to same day surgery center PHYSICIAN NO [facility] [place] Start: 07-25-2023 End: 07-25-2023 ambulatory PHYSICIAN NO [facility] Work Phone: Start: 07-25-2023 End: 07-26-2023 ambulatory Mina BAEZ Facility:CD:[id number] Start: 07-25-2023 End: 07-26-2023 ambulatory Mina BAEZ Facility:[facility] Start: 07-25-2023 End: 07-25-2023 ambulatory PHYSICIAN NO FAMILY Facility:[facility] Start: 07-25-2023 End: 07-25-2023 Patient encounter procedure Mina BAEZ [facility] Start: 07-25-2023 End: 07-25-2023 ambulatory PHYSICIAN NO [facility] Work Phone: Start: 07-25-2023 End: 07-25-2023 Patient encounter procedure PHYSICIAN NO [facility] Work Phone: Start: 07-19-2023 End: 07-19-2023 Emergency department patient visit PHYSICIAN NO FAMILY Facility:[facility] Start: 07-19-2023 End: 07-19-2023 Emergency department patient visit PHYSICIAN NO [facility] Work Phone: Start: 07-07-2023 End: 07-07-2023 ambulatory La Nena Travis Other [employer] [facility] [employer] Other Start: 07-07-2023 Office outpatient vi sit 25 minutes La Nena Travis [facility] Start: 05-23-2023 End: 05-23-2023 ambulatory Claire Rothman Other [employer] Other Start: 05-23-2023 Office outpatient vi sit 15 minutes Claire Rothman [facility] Start: 11-04-2022 End: 11-04-2022 ambulatory BEBETO PEREZ Facility:[facility] Start: 08-21-2022 End: 08-21-2022 Emergency department patient visit REECE BRISCOE [facility] Start: 08-21-2022 End: 08-21-2022 Emergency department patient visit Reece Briscoe MD Work Phone: [facility] Comment on above: Accidental drug over dose, initial encounter (Primary Dx) Start: 08-02-2022 End: 08-02-2022 Office outpatient visit 15 minutes Kasia Urbina COIL WINDING 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: [facility] [place] Comment on above: Viral infection, uns pecified (Primary Dx); Screening for STD (sexually transmitted disease); Anxiety about health Start: 03-23-2022 End: 03-23-2022 ambulatory BEBETO ANA Facility:[facility] Start: 12-22-2021 End: 12-22-2021 ambulatory Ratna ARAMBULA Work Phone: [facility] Start: 12-22-2021 End: 12-22-2021 Patient encounter procedure Ratna Ye HERNANDEZW Work Phone: Psychiatry Comment on above: APPOINTMENT CANCELLE D (Primary Dx) Start: 12-17-2021 End: 12-17-2021 ambulatory RONEL MAURER Facility:[facility] Start: 12-01-2021 End: 12-02-2021 ambulatory RONEL MAURER Facility:[facility] Procedures Date Procedure Procedure Detail Performing Clinician Start: 08-08-2023 Abdomen endoscopy PHYSI MARIA GUADALUPE NO FAMILY Start: 08-08-2023 Diagnostic radiograp hy of abdomen PHYSICIAN NO FAMILY Start: 08-08-2023 Cystoscopic laser lithotripsy of ureteric calculus VERO TOLLIVER Start: 07-25-2023 Abdomen endoscopy PHYSI MARIA GUDAALUPE NO FAMILY Start: 07-25-2023 Cystoscopy PHYSICIAN NO [...] Work Phone: Start: 08-02-2022 POC COVID-FLU HERNAN Sylvia Urbina COIL WINDING 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: Start: 12-21-2021 Adult depression scr eening assessment Ratna Ye ARAMBULA Work Phone: History of hernia repair Kylie BAEZ Tonsillectomy Mina BAEZ Plan of Treatment Date Care Activity Detail Author Start: 2039 Zoster Vaccines (1 of 2) Zoste r Vaccines (1 of 2) [facility] Start: 02-14-2024 ambulatory Ambulatory Facility:[facility] Start: 08-08-2023 End: 08-08-2023 [facility] Start: 07-25-2023 [facility] Start: 07-25-2023 [facility] Start: 12-21-2022 Adult depression screening assessment DEPRESSION SCREENING [facility] Start: 06-24-2022 Influenza vaccination Influenza Vacc ine (#1) [facility] Start: 05-24-2022 Influenza vaccination Flu vaccine (# 1) [facility] Start: 06-24-2021 Influenza vaccination INFLUENZA (#1) [facility] Start: 2008 DTaP/Tdap/Td vaccine (1 - Tdap) DTaP/Tdap/Td vaccine (1 - Tdap) [facility] Start: 2008 DTaP/Tdap/Td Vaccine s (1 - Tdap) DTaP/Tdap/Td Vaccines (1 - Tdap) [facility] Start: 2008 Urine microalbumin profile DTAP,TDAP,TD (1 - Tdap) [facility] Start: 2007 HEPATITIS [facility] Start: 2007 Hepatitis C [facility] Start: 2007 HIV SCREENING HIV SCREENING [facility] Start: 2004 HIV screening HIV screen [facility] Start: 2001 Depression Screen Depression Screen [facility] Start: 1994 COVID-19 VACCINE (1) COVID-19 VACCIN E (1) [facility] Start: 1990 Varicella vaccine (1 of 2 - 2-dose childhood series) Varicella vaccine (1 of 2 - 2-dose childhood series) [facility] Start: 04-12-1990 COVID-19 Vaccine (#1) COVID-19 Vacci ne (#1) [facility] Start: 1989 Hepatitis C screening Hepatitis C Sc reening [facility] Start: 1989 HIV screening HIV Screening [facility] Chlamydia sp rRNA [Presence] in Cervix by Probe Chlamydia Trachomatis, RNA Lab Routine Screening for STD (sexually transmitted disease) 08/02/2022 3:09 PM EDT [facility] NEISSERIA GONORRHEA/CHLAMYDIA TRACHOMATIS RNA NEISSERIA GONORRHEA/CHLAMYDIA TRACHOMATIS RNA Lab Routine Screening for STD (sexually transmitted disease) 08/02/2022 3:09 PM EDT [facility] Neisseria gonorrhoea e DNA [Presence] in Genital specimen by DANILO with probe detection Neisseria Gonhorrhoeae, RNA Lab Routine Screening for STD (sexually transmitted disease) 08/02/2022 3:09 PM EDT [facility] Patient Education [facility] Work Phone: Patient referral [facility] Work Phone: End: 08-02-2023 Trichomonas vaginalis, NAAT Trichomonas vaginalis, NAAT Lab Routine Screening for STD (sexually transmitted disease) 1 Occurrences starting 08/02/2022 until 08/02/2023 [facility] Work Phone: Comment on above: 1 Occurrences starti ng 08/02/2022 until 08/02/2023 Trichomonas vaginali s, NAAT Trichomonas vaginalis, NAAT Lab Routine Screening for STD (sexually transmitted disease) 08/02/2022 3:09 PM EDT [facility] Payers Date Payer Category Payer Self-pay [id number] 2022 Medicaid [id number] 2022 Medicare [employer]IC[employer] UHC DUAL COMPLETE [id number] 2022-Present [address] [place] [address] [id number] [facility] [address] [facility] [employer] MEDICAID [id number] 2020-Present [phone] [address] [place] [address] Medicaid [id number] 1989 Unknown [id number] 1989 Unknown [id number] 1989 Unknown [id number] 1989 Unknown [id number] 1989 Unknown [id number] [id number] 1989 Unknown [id number] [id number] 1989 Unknown [id number] [id number] 1989 Unknown [id number] 1989 Unknown [id number] [id number] 1989 Unknown [id number] [id number] 1959 Unknown [id number] Unknown Audrey BC/BS [id number] Unknown [id number] Unknown [id number] [id number] Unknown [id number] Unknown [id number] Social History Date Type Detail Facility Tobacco smoking status CTIS Tobacco smoking consumption unknown [facility] Start: 1990 Sex Assigned At Not on file C [facility] Start: 08-02-2022 End: 07-19-2023 Tobacco smoking status NHIS Never smoked tobacco [facility] Start: 08-02-2022 End: 08-21-2022 Tobacco use and exposure Smokeless tobacco non-user [facility] Start: 07-23-2022 End: 08-21-2022 Exposure to SARS-CoV-2 (event) Not sure [facility] Start: 08-21-2022 Tobacco smoking status CTIS Occasional tobacco smoker [employer] Phone: History of tobacco use Cigarette Smoker [employer] Phone: Start: 08-21-2022 Alcohol intake Current drinke r of alcohol (finding) [employer] Phone: Start: 08-21-2022 Alcohol Comment occasionally [employer] Phone: Sex Assigned At [facility] Start: 1990 Sex Assigned At Male F [facility] Start: 07-25-2023 End: 07-25-2023 Tobacco smoking status NHIS Ex-smoker (finding) [facility] Tobacco smoking status Never [facility] Medical Equipment Procedure Code Equipment Code Equipment Origin al Text Equipment Identifier Dates Cystoscopy, with ureteral calculus manipulation and stent placement Polymeric ureteral stent [id number] [facility] Start: 07-25-2023 Goals Date Patient Goal Desired Activity /State Functional Status Date Assessment Result Facility 09-27-2023 Functional Status N/A [facility] 07-25-2023 Functional Status N/A [facility] Clinical Notes 12-22-2021 to 11-23-2023 Note Date & Type Note Facility 11-23-2023 Evaluation note Encounter Date Diagnosis Assessment Notes Oct, Bronchitis (ICD-10 - J40) Discussed viral nature of bronchitis and average duration being 3-4 weeks. Encouraged frequent handwashing, cough into elbow, etc. Discussed diagnosis with patient. Patient to start Zithromax. Patient to take Zithromax daily with food as prescribed. Finish entire course of antibiotic. STOP Doxy and Tessalone. Direceted on use of promethazine as needed for cough. Increase fluids and rest. Yoqk-kqx-yjjcaqw antipyretics as needed. Warning signs and symptoms reviewed with patient today. Patient to go immediately to the ER should she experience any of these. Patient to notify office should symptoms persist and not improve. may need x-ray evaluation. Patient verbalizes understanding and agrees to treatment plan. [facility] Other 01-29-2024 Evaluation note* Encounter Date Diagnosis Assessment Notes Treatment Notes Treatment Clinical Notes Oct, Sore throat (ICD-10 - J02.9) Oct, Bronchitis (ICD-10 - J40) Drink plenty fluids, get plenty of rest. Take the doxycycline as prescribed until gone. Take the prednisone as prescribed until gone. Use the albuterol inhaler as prescribed as needed for cough or shortness of breath. Take the benzonatate capsules as prescribed as needed for cough. Take Tylenol or Motrin as needed for aches pains or fevers. Follow-up with your family physician if no improvement in 2 to 3 days. Off work today and tomorrow. [employer] Other 01-12-2024 Evaluation note* Encounter Date Diagnosis Assessment Notes Treatment Notes Treatment Clinical Notes Oct, Heart palpitations (ICD-10 - R00.2) [...] she is getting surgical myectomy today at [facility]. They had been estranged for a number of years and only started talking after she got diagnosed and told him to get evaluated. He is unaware of specific genetic testing/mutation in the sister. No family history of sudden cardiac . He reports significant history of palpitations and has cardiac work up: - ECHO 10/13/2023 at [place] (images not available): Normal LVEF 55-60%. Reported [...] his symptoms. - Follow-up in 2 months [facility] Other 12-26-2023 Evaluation note* Encounter Date Diagnosis Assessment Notes Treatment Notes Treatment Clinical Notes Sep, Ventricular hypertrophy (ICD-10 - I51.7) [facility] [employer] Other 12-05-2023 Hospital Discharge instructions Patient Education [...] include: ?8 oz (237 mL) of milk, klzvcil-sinxkunaufrn-mgnzt milk, and calcium- fortifiedfruit juice. Calcium-fortified means [...] ?Spinach (cooked), rhubarb, beets, sweet potatoes, and Mauritanian chard. ?Peanuts. ?Potato chips, congolese fries, and baked potatoes with skin on. ?Nuts and nut products. ?Chocolate. If you regularly take a diuretic medicine, make sure to eat at least 1 or 2 servings of fruits or vegetables that are high in potassium each day. These include: ?Avocado. ?Banana. ?Jenkins, prune, carrot, or tomato juice. ?Baked potato. [...] magnesium, fish oil, or vitamin B6. Take htke-moi-xjnlbiq and prescription medicines only as told by [...] Casseroles. Pizza. Lasagna. Frozen meals. Potato chips. Prydeinig fries. The items listed above may not [...] provider. Document Revised: 01/20/2023 Document Reviewed: 01/20/2023 [employer] Patient Education 2022 Noom. Follow Up Care 09/01/2023 14:23:50 With:UNRULY GARDNER, VERO Urbina, URL Address: [address] [place] [id number] When: Unknown Comments:has f/u with [facility] 02/14/2024 [facility] 11-27-2023 Evaluation note* Encounter Date Diagnosis Assessment [...] ER this past week. Will recheck labs. [facility] Other 10-02-2023 Hospital Discharge instructions Patient Education [...] include: ?8 oz (237 mL) of milk, ohxkuof-fgqldmnblayz-rnfth milk, and calcium- fortifiedfruit juice. Calcium-fortified means [...] ?Spinach (cooked), rhubarb, beets, sweet potatoes, and [place]itanian chard. ?Peanuts. ?Potato chips, congolese fries, and baked potatoes with skin on. ?Nuts and nut products. ?Chocolate. If you regularly take a diuretic medicine, make sure to eat at least 1 or 2 servings of fruits or vegetables that are high in potassium each day. These include: ?Avocado. ?Banana. ?Jenkins, prune, carrot, or tomato juice. ?Baked potato. [...] magnesium, fish oil, or vitamin B6. Take pqgp-dgo-smexvcb and prescription medicines only as told by [...] Casseroles. Pizza. Lasagna. Frozen meals. Potato chips. Prydeinig fries. The items listed above may not [...] provider. Document Revised: 06/21/2022 Document Reviewed: 06/21/2022 [employer] Patient Education 2022 No[employer]. Follow Up Care 07/22/2023 15:08:09 With:NESTOR PERSON, Mina Nam, URL Address: [facility] [employer] [place] [id number] When: Unknown Comments:Sched Cysto with retro Stent Placement w/pos ureteroscopy [facility] 09-14-2023 Evaluation note* Encounter Date Diagnosis [...] Suspected COVID-19 virus infection (ICD-10 - Z20.822) [facility] Other 07-31-2023 Evaluation note* Encounter Date Diagnosis Assessment Notes Treatment Notes Treatment Clinical Notes Apr, Viral gastroenteriti s (ICD-10 - A08.4) Vitals stable. No signs of acute abdomen on exam. Discussed exam and history is consistent with viral gastroenteritis. Discussed viral nature of illness and typical duration. Fluids and rest encouraged. [place] diet in small amounts as tolerated. May continue Kaopectate. Will Rx as needed Zofran for nausea. Work note given. Discussed contagious nature. Follow-up with PCP if not improving over the next 4 to 5 days, significantly worsening symptoms or high fevers. Patient verbalized understanding of treatment plan. [facility] Other 10-10-2022 History of Present illness Narrative* Froy Alonso LPN - 08/02/2022 3:00 PM EDT PATIENT AMBULATES T ROOM 14 . C/O COUGH CONGESTION AND STATES HE FEELS FOGGY . STATES HE WANTS STD TESTING * Kasia Urbina APRN-CHERRIE - 08/02/2022 3:00 PM EDT Subjective Patient [...] he knew he woke up at the [facility] and he reports sexual acts were completed- [...] ear normal. Nose: Nose normal. Mouth/Throat: Lips: [place]. Mouth: Mucous membranes are moist. Pharynx: Oropharynx [...] assistance. Advised pt to advance to either [facility] or health dept for complete blood [...] agreeable with the plan. [facility] Instructions* Patient Instructions* SIACC Walker - 08/02/2022 3:00 PM EDT Images [...] help right away. Last Reviewed: October 2020 [facility] Medical Review Board Thania Trevino MSN, BS, RNC-CARLA Updated: 12/02/2020 [facility] documented in this [facility]05-31-2022 Note PROCEDURE: XR CHEST 1 V REASON FOR STUDY/CLINICAL HISTORY: COUGH. COMPARISON STUDY: 02/12/2017. TECHNIQUE: Single view(s) of the chest presented for interpretation. FINDINGS: No acute cardiopulmonary process. Normal cardiomediastinal silhouette. No focal consolidation, edema, or large pleural effusion. No pneumothorax. No acute appearing focal significant bony abnormality. IMPRESSION: No acute localizing pulmonary pathology. Electronically authenticated by: ELISEO PIERCE Date: 2022-03-23 00:06[facility]03-01-2022 NoteHNO ID: [id number] Author: RALF Troy Service: ? Author Type: [...] for Vivitrol including comprehensive evaluation, referral to [facility] physician, prior authorization and referral to chronic care clinic. Patient states that it is difficult for him to get to [place] and would like something closer to where he is located. Provided patient contact information for [facility] Counseling. Patient declined [facility] evaluation. Provided [facility] contact information and instructed patient to call if interested in rescheduling appointment. RALF Troy[facility]Ellis[facility] No data available for this section [facility] Evaluation + Plan note Future Appointments Appointment Date:02/14/2024 02:30:00 PM Scheduled Provider:Mina BAEZ MD Location:[facility] Appointment Type:URO Office Visit [facility] note* Diagnosis APPOINTMENT CANCELLED- Primary [facility] Diagnosis Viral infection, unspecified- Primary Screening for STD (sexually transmitted disease) Anxiety about health [facility] Diagnosis Accidental drug overdose, initial encounter- Primary documented in this encounter [facility] Work Phone: evaluation noteNo assessment information available [facility] Work Phone: Evaluation noteNo InformationNort [employer] Other History general Narrative - Reported* Type Description Date Medical History hernia Medical History anxiety Medical History asthma Medical History HSVZ Medical History ADD Medical History Chronic back pain Surgical History hernia x2 [facility] Other Hisuwkl general Narrative - Reported* Type Description Date Medical History hernia Medical History anxiety Medical History asthma Medical History HSVZ Medical History ADD Medical History Chronic back pain Surgical History hernia x2 Surgical History lithotripsy 2022 [facility] Other Hisofnj general Narrative - Reported* Type Description Date Medical History hernia Medical History anxiety Medical History asthma Medical History HSVZ Medical History ADD Medical History Chronic back pain Surgical History hernia x2 Surgical History lithotripsy 2022 Hospitalization History See Above [facility] Other Hospital Discharge instructions* Attachments The following attachments cannot be sent through Care Everywhere. * Opioids: General Info (Macedonian) [facility] Discharge instructions Additional Instructions Percocets for severe pain You cannot work or drive when taking Percocet Tylenol or Motrin if needed for minor pain If needed for nausea vomiting Flomax daily Strain all urine Follow-up with urology as discussed Return here if you develop any fever, chills, increased pain vomiting or any [facility] Work Phone: Hospital Discharge instructions Additional Instructions [...] other reasons. 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 Advance Directives and Living Will Power of Ip Attorney Advance Directive Response Recorded Date/ Time Advance Directives No December 25 2:02pm Chief Complaint and Reason for Visit Chief Complaint abd and back pain-nk i Chief Complaint abd and back pain-nk i n20.0 cysto/stent Chief Complaint abd and back pain-nk i n20.0 cysto/stent kidney stone Reason for Referral Reason evaluate Diagnosis 1 Ventricular hypertro phy (I51.7) [facility]erral [facility] Referring Provider First Name Vero Referring Provider Last Name Menaachevladislav Referring Provider Specialty Nurse Pract itmelquiades Referred Organization [facility] Cardiology Referred Provider Joelle Gonzalez Referred Address [address] [place] [address],[place] [address],[place], [id number] Referred Provider Specialty Cardiovascul ar Disease Referral Priority Routine Additional Source Comments Source Comments (unrecognize d section and content) In the event this informatio n is protected by the Federal Confidentiality of Alcohol and Drug Abuse Patient Records regulations: The Federal rules restrict any use of the information to criminally investigate or prosecute any alcohol or drug abuse patient.[facility] Reason for Visit (unrecogniz ed section and content) Reason Comments Consult Reason Comments Nasal Congestion Cough Other Reason Comments Other Pt to ED due to feel ing sick and feeling like something is off. (unrecognized sect ion and content) No Status Records FoundNo Status Records FoundNo Status Records FoundNo Status Records FoundNo Status Records Found INFORMATION SOURCE (unrecogn ized section and content) DATE CREATED AUTHOR 12/22/2021 [facility] DATE CREATED AUTHOR AUTHOR'S ORGANIZ ATION 08/21/2022 [facility] DATE CREATED AUTHOR AUTHOR'S ORGANIZ ATION 11/06/2022 [facility] DATE CREATED AUTHOR AUTHOR'S ORGANIZ ATION 08/18/2023 [facility] DATE CREATED AUTHOR AUTHOR'S ORGANIZ ATION 10/10/2023 [facility] Care Teams (unrecognized sec tion and content) [...] BE BASED ON THE PRIMARY CLINICAL RECORDS. [employer] provides no warranty or guarantee of the accuracy or completeness of information in this document.
[2023-11-28 18:38] LABS: Basophils Absolute Auto 0.1 10^3/uL (0.0-0.1); Basophils Percent Auto 0.6 % (0.2-2.0); Eosinophils Absolute Auto 0.2 10^3/uL (0.0-0.7); Eosinophils Percent Auto 2.6 % (0.9-7.0); Hematocrit 43.4 % (42.0-54.0); Hemoglobin 15.1 g/dL (14.0-18.0); Immature Granulocytes Abs Auto 0.07 10^3/uL (0.00-0.03); Immature Granulocytes Pct Auto 0.8 % (0.0-0.5); Lymphocytes Absolute Auto 2.4 10^3/uL (1.2-3.8); Lymphocytes Percent Auto 28.6 % (20.5-60.0); Mean Corpuscular HGB Conc 34.8 g/dL (29.9-35.2); Mean Corpuscular Volume 89.1 fL (80.0-94.0); Mean Platelet Volume 10.2 fL (9.5-13.5); Monocytes Absolute Auto 0.8 10^3/uL (0.3-0.8); Monocytes Percent Auto 9.5 % (1.7-12.0); Neutrophils Percent Auto 57.9 % (43.0-75.0); Platelet Count 253 10^3/uL (150-450); Red Blood Count 4.87 10^6/uL (4.70-6.10); Red Cell Distribution Width 10.8 % (11.0-15.0); White Blood Count 8.5 10^3/uL (4.0-11.0)
[2023-11-28 18:46] VITALS: PULSE 92; RESP 16; O2SAT 96
[2023-11-28 18:49] LABS: Internal Control Within Normal Limits; Respiratory Syncytial Virus Not Detected (NOT DETECTE)
[2023-11-28 18:58] LABS: Anion Gap 9.7; Carbon Dioxide 30.2 mmol/L (21.0-32.0); Chloride 102 mmol/L (98-107); Estimated GFR (African America >60 (>=60); Estimated GFR (Non-African Ame >60 (>=60); Glucose 109 mg/dL (74-106); Potassium 3.9 mmol/L (3.5-5.1); Sodium 138 mmol/L (136-145)
[2023-11-28 18:59] LABS: D Dimer <0.19 mg/L FEU (<=0.59)
[2023-11-28 19:17] VITALS: BP 137/80; PULSE 84; RESP 16; O2SAT 97
[2023-11-28 19:19] VITALS: O2SAT 96
== END 2023-11-28 19:58 | disposition home or self-care (01) ==
PROVIDERS: Emergency Medicine; Emergency Provider Internal Medicine; PCP Internal Medicine
DX: R07.89 Other chest pain (principal); Z79.899 Other long term (current) drug therapy; Z87.891 Personal history of nicotine dependence
CPT/HCPCS: 36415; 71045; 80048; 84484; 85025; 85378; 87420; 93005; 99285

== ENCOUNTER 2024-01-18 19:24 | Emergency (ER) | payer OTHER, SELFPAY ==
[2024-01-18] VITALS (12 sets, daily range): BP systolic 120–149; BP diastolic 67–92; PULSE 90–99; RESP 16–22; TEMP 36.6–36.7; O2SAT 93–98; BMI 29.5
--- OUTSIDE RECORDS SUMMARY | 2024-01-18 19:33 | XMS_ITS | CCD ---
Author Organization [facility] Care Team Providers Care Personnel Counselor Name Role Phone Unavailable Primary Care Provider [...] Emergency Provider MD Mina Baez Attending Provider Vero Stern Unavailable KATELYN DOVER Primary Care Physician VERO TOLLIVER Attending Unavailable Mina BAEZ Attending Unavailable Mina BAEZ Attending Unavailable Mina BAEZ Referring Unavailable Mina BAEZ Attending Unavailable Mina BAEZ Attending Unavailable Mina BAEZ Attending Unavailable Joelle Gonzalez Unavailable Pura Kay Unavailable RAQUEL Stern Primary Care Provider DO Sang Lovett Emergency Provider Sang Lovett Attending Unavailable Sang Lovett Admitting Unavailable Vero Stern Primary Care Unavailable NO FAMILY, PHYSICIAN Primary Care Unavailable Mina Baez Attending Unavailable Mina Baez Admitting Unavailable NO FAMILY, PHYSICIAN Primary Care Unavailable Mina Baez P Attending Unavailable Mina Baez P Admitting Unavailable Mina Baez P Admitting Unavailable NO FAMILY, PHYSICIAN Primary Care Unavailable Mina Baez P Attending Unavailable NO FAMILY, PHYSICIAN Primary Care Unavailable Aracelis Robertson N Attending Unavailable Aracelis Robertson N Admitting Unavailable Allergies Allergy Classification Reported Allergen(s) Allergy Type Date of Onset Reaction(s) Facility (12 sources) Cefaclor; Translations: [cefaclor] Drug Allergy 2 Nausea [facility] (10 sources) Penicillins Allergy to substance 2 Nausea, Anaphylaxis [facility] (13 sources) Cefaclor; Translations: [Ceclor] Drug Allergy 3 [facility]ository (1 source) Penicillins Drug allergy (disorder) 3 [facility] Repository (15 sources) Penicillin G Drug Allergy 4 [facility] (4 sources) Penicillin; Translations: [penicillin] Drug Allergy [facility] (3 sources) HYDROmorphone; Translations: [hydromorphone] Drug Allergy 3 [facility] (1 source) Cefaclor Drug Allergy 4 [facility] Repository (1 source) Penicillin Drug Allergy 4 [facility] Repository (1 source) Penicillins Drug allergy (disorder) 4 [facility] Repository Medications Current Medications Medication Drug Class(es) Dates Sig (Normalized) Sig (Original) acetaminophen 325 mg / oxyCODONE hydrochloride 5 mg oral tablet (1 source) Opioid Agonist Start: 07-19-2023 take 1 tablet by mouth every four to six hours Oxycodone-Acetami nophen (Percocet) 5-325 mg tablet Active 1 TAB PO EVERY 4-6 HOURS 12 3 July 19, 2023 [id number] 200 actuat albuterol 0.09 mg/actuat metered dose inhaler (18 sources) beta2-Adrenergic Agonist Start: 01-15-2024 Albuterol Sulfate (Ventolin Hfa) 90 mcg/actuation HFA aerosol inhaler Active 1 INH INHALATION EVERY 4-6 HOURS 6.7 January 15, 2024 12:00am Start: 12-07-2023 take 1 puff(s) by in halation four times daily Albuterol Sulfate Active 2 PUFF INHALATION Four times daily December 07, 2023 1:00am Start: 11-21-2023 take 2 puff(s) by in halation four times daily as needed Albuterol Sulfate [...] Aug, Not-Taking/PRN azithromycin 250 mg oral tablet (3 sources) Macrolide Antimicrobial Start: 01-15-2024 Azithromycin Active 0 PO .COMPLEX 6 January 15, 2024 12:00am For 250 mg dose pack: take 500 mg today (day 1), then 250 mg for 4 days (days 2-5) Start: 11-23-2023 Azithromycin 2 50 MG 2 tablet on the first day, then 1 tablet daily for 4 days Orally Once a day for 5 day(s) Oct, Active benzonatate 200 mg oral capsule (3 sources) Non-narcotic Antitussive Start: 11-21-2023 take 1 capsule by mouth every eight hours Benzonatate 200 MG 1 capsule Orally Three times a day Oct, Active dextromethorphan hydrobromide 15 mg / guaiFENesin 400 mg / pseudoephedrine hydrochloride 60 mg oral tablet (4 sources) alpha-Adrenergic Agonist, Uncompetitive U-szftpw-M-aspartat e Receptor Antagonist, Sigma-1 Agonist Start: 01-13-2024 take 4 tablets by mouth every twenty-four hours Pseudoephedrine- Dm-Guaifenesin (Capmist Dm) 60-15-400 mg tablet Active 1 TAB PO EVERY 4-6 HOURS January 13, 2024 12:00am do not exceed 4 doses per 24 hrs Start: 07-07-2023 take 4 tablets by mo [facility] every twenty-four hours as needed Capmist DM 60-15-400 MG as needed Orally every 4-6 hours as needed, max 4 tablets in 24 hours for 5 days Jun, Active dextromethorphan hydrobromide 3 mg/ml / promethazine hydrochloride 1.25 mg/ml oral solution (1 source) Phenothiazine, Uncompetitive O-pghclf-C-aspartate Receptor Antagonist, Sigma-1 Agonist Start: 11-23-2023 Promethazine-DM 6.25-15 MG/5ML 5 mL as needed Orally every 6 hrs for 7 days Oct, Active doxycycline monohydrate 100 mg oral tablet (6 sources) Tetracycline-class Drug Start: 01-10-2024 take 100 mg by mouth twice daily Doxycycline Monohydrate Active 100 MG PO Twice daily 14 January 10, 2024 12:00am Start: 11-21-2023 take 1 tablet by [facility] every twelve hours Doxycycline Hyclate 100 MG 1 tablet Orally Twice a day for 10 day(s) Oct, Active Fluticasone Propion-Salmeterol (1 source) Corticosteroid, beta2-Adrenergic Agonist Start: 01-16-2024 Fluticasone Propion-Salmeterol (Advair Diskus) 100-50 mcg/dose blister with device Active 1 INH INHALATION Twice daily 60 January 16, 2024 12:00am hydrOXYzine pamoate 25 mg oral capsule (1 [...] Active oxybutynin chloride 5 mg oral tablet (8 sources) Cholinergic Muscarinic Antagonist Start: 08-09-2023 take 1 tablet by mouth three times daily as needed oxybutynin 5 mg Tab 5 mg = 1 tab(s), Oral, TID, PRN for urinary discomfort, # 60 tab(s), Refills(s) 0, Pharmacy: [facility]/pharmacy #[id number], 175, cm, 07/25/23 9:08:00 EDT, Height/Length Dosing, 89.5, kg, 07/25/23 9:08:00 EDT, Weight Dosing Start Date: 08/09/23 Status: Ordered Start: 07-25-2023 End: 08-08-2023 take 5 mg by mouth twice daily Oxybutynin Chloride Dis continued 5 MG PO Twice daily 60 July 25, 2023 12:00am August 08, 2023 2:01pm predniSONE 50 mg oral tablet (18 sources) Start: 01-15-2024 take 50 mg by mouth once daily Prednisone Active 50 MG PO Daily 02 25January 15, 2024 12:00am Start: 01-13-2024 take 20 mg by mouth twice francisco y Prednisone Active 20 MG PO Twice daily 07 28January 13, 2024 12:00am Start: 09-10-2023 take 1 tablet by ran th every twelve hours predniSONE 20 MG 1 tablet Orally bid for 5 day(s) Oct, Active Start: 07-07-2023 take 1 tablet by arn th every twelve hours prednisone 20 MG 1 tablet Orally BID for 5 Jun, Active Promethazine-Codeine (1 source) Start: 01-16-2024 take 1 mL by mouth at bedtime Promethazine-Codeine Active 5 ML PO Bedtime 15 January 16, 2024 12:00am traZODone hydrochloride 100 mg oral tablet (13 sources) Serotonin Reuptake Inhibitor Start: 12-07-2023 take 100 mg by mouth once daily at bedtime Trazodone Active 100 MG PO Daily at bedtime December 07, 2023 1:00am take 1 tablet by ran th every twenty-four hours traZODone HCl 100 MG 1 tablet at bedtime Orally Once a day for 90 days Active Completed/Discontinued Medications Medication Drug Class(es) Dates Sig (Normalized) Sig (Original) acetaminophen 325 mg oral tablet (10 sources) Start: 08-08-2023 End: 12-07-2023 take 2 tablets by mouth every four hours Acetaminophen (Tylenol Extra Strength) 500 mg Tablet Discontinued 1000 MG PO Q4H August 08, 2023 12:00am December 07, 2023 4:56pm Start: 08-08-2023 End: 08-08-2023 Acetaminophen (Tylenol) 325 mg Tablet Discontinued 650 MG PO As Directed August 08, 2023 12:00am August 08, 2023 2:32pm acetaminophen 325 mg / HYDROcodone bitartrate 5 mg oral tablet (12 sources) Opioid Agonist Start: 07-25-2023 End: 12-07-2023 take 1 tablet by mouth every four to six hours Hydrocodone-Acetaminophen Discontinued 1 TAB PO EVERY 4-6 HOURS 7 3 August 08, 2023 December 07, 2023 4:56pm ALPRAZolam 0.25 mg oral tablet (4 sources) Benzodiazepine Start: 12-07-2023 End: 01-15-2024 take 1 tablet by mouth once daily at bedtime Alprazolam (Xanax) 0.25 mg tablet Discontinued 0.25 MG PO Daily at bedtime 14 December 07, 2023 1:00am January 15, 2024 10:18pm ciprofloxacin 500 mg oral tablet (12 sources) Quinolone Antimicrobial Start: 07-25-2023 End: 12-07-2023 take 1 tablet by mouth every two hours Ciprofloxacin Hcl (Cipro) 500 mg tablet Discontinued 500 MG PO Q12H August 08, 2023 12:00am December 07, 2023 4:56pm administer dose at least 2 hrs before/6 hrs after dairy products, calcium, zinc, and/or iron-containing products dextromethorphan hydrobromide 1.5 mg/ml / pyrilamine maleate 1.5 mg/ml oral solution (8 sources) Uncompetitive O-oomphi-H-aspar jones Receptor Antagonist, Sigma-1 Agonist Start: 09-10-2023 take 10 mL by mouth every eight hours as needed [place] DM 7.5-7.5 MG/5ML 10 mL Orally every 8 hours for 5 days Aug, Not-Taking/PRN methylPREDNISolone (11 sources) Corticosteroid Start: 03-11-2014 Depo-Medrol 80 mg February, 80 mg ondansetron 4 mg disintegrating oral tablet (18 sources) Serotonin-3 Receptor Antagonist Start: 07-19-2023 End: [...] pantoprazole 40 mg delayed release oral tablet (8 sources) Proton Pump Inhibitor Start: 12-25-2020 End: 07-19-2023 take 1 tablet by mouth once daily Pantoprazole (Protonix) 40 mg tablet,delayed release (DR/EC) Discontinued 40 MG PO Daily December 25, 2020 1:00am July 19, 2023 6:37pm sucralfate 1000 mg oral tablet (8 sources) Aluminum Complex Start: 12-25-2020 End: 07-19-2023 take 1 tablet by mouth every six hours Sucralfate (Carafate) 1 gram tablet Discontinued 1 GM PO Q6H 56 December 25, 2020 1:00am July 19, 2023 6:37pm tamsulosin hydrochloride 0.4 mg oral capsule (9 sources) alpha-Adrenergic Feliberto Start: 07-19-2023 End: 08-08-2023 take 1 capsule by mouth once daily Tamsulosin (Flomax) 0.4 mg capsule Discontinued 0.4 MG PO Daily July 19, 2023 12:00am August 08, 2023 2:01pm tiZANidine 2 mg oral tablet (8 sources) Central alpha-2 Adrenergic Agonist Start: 12-25-2020 End: 07-19-2023 take 2 mg by mouth once daily at bedtime Tizanidine Discontinued 2 MG PO Daily at bedtime December 25, 2020 1:00am July 19, 2023 6:38pm triamcinolone acetonide 1 mg/ml topical cream (4 sources) Corticosteroid Start: 12-07-2023 End: 01-13-2024 Triamcinolone Acetonide Discontinued 1 APPLIC TOPICAL Twice daily 30 7 December 07, 2023 1:00am January 13, 2024 11:34am valACYclovir 500 mg oral tablet (20 sources) Herpesvirus Nucleoside Analog DNA Polymerase Inhibitor, Herpes Simplex Virus Nucleoside Analog DNA Polymerase Inhibitor, Herpes Zoster Virus Nucleoside Analog DNA Polymerase Inhibitor Start: 12-07-2023 End: 01-13-2024 take 500 mg by mouth once daily Valacyclovir Discontinued 500 MG PO Daily December 07, 2023 1:00am January 13, 2024 11:34am Start: 07-25-2023 valacyclovir 1 g Tab Refills(s) 0 Start Date: 07/25/23 Status: Ordered Start: 07-19-2023 End: 12-07-2023 take 1 mg by mouth once daily Valacyclovir Discontinue d 1 MG PO Daily July 19, 2023 12:00am December 07, 2023 4:56pm take 1 tablet by ran th every twenty-four hours valACYclovir HCl 500 MG 1 tablet Orally Once a day PRN Active Problems Active Problems Problem Classification Problem Date Documented Date Episodic/Chronic Abdominal pain (8 sources) Epigastric pain; Translations: [Epigastric pain] 12-25-2020 Episodic Allergic reactions (8 sources) Atopic dermatitis; Translations: [Atopic dermatitis, unspecified] 12-07-2023 Chronic Anxiety disorders (17 sources) Anxiety about body function or health; Translations: [Other specified anxiety disorders] Onset: 03-24-2022 Chronic Asthma (20 sources) Asthma; Translations: [Mild intermittent asthma] 07-25-2023 Chronic Cardiac dysrhythmias (2 sources) Palpitations Episodic Chronic obstructive pulmonary disease and bronchiectasis (6 sources) Bronchitis, not specified as acute or chronic; Translations: [Bronchitis] Onset: 01-15-2024 Episodic Disorders usually diagnosed in infancy, childhood, or adolescence (4 sources) Attention deficit hyperactivity disorder, predominantly inattentive type; Translations: [Other specified behavioral and emotional disorders with onset usually occurring in childhood and adolescence] 12-07-2023 Chronic Immunizations and screening for infectious disease (4 sources) Patient encounter status; Translations: [Encounter for screening for infections with a predominantly sexual mode of transmission] Episodic Intestinal infection (1 source) Viral intestinal infection, unspecified Episodic Nonspecific chest pain (1 source) Chest pain, unspecified; Translations: [CHEST PAIN UNSPECIFIED] Onset: 11-05-2022 Episodic Other and ill-defined heart disease (12 sources) Ventricular hypertrophy ; Translations: [Cardiomegaly] 12-07-2023 Chronic Other and ill-defined heart disease (1 source) Cardiomegaly Chronic Other diseases of kidney and ureters (7 sources) Hydronephrosis with renal and ureteral calculous [...] APNEA] Onset: 12-01-2021 Chronic Residual codes; unclassified (13 sources) Obstructive sleep apnea syndrome; Translations: [Obstructive sleep apnea (adult) (pediatric)] 12-07-2023 Chronic Residual codes; unclassified (9 sources) Sleep disorder; Translations: [Sleep disorder, unspecified] Episodic Residual codes; unclassified (1 source) Sleep disorder, unspecified Episodic Residual codes; unclassified (2 sources) Family history of ischemic heart disease and other diseases of the circulatory system Episodic Spondylosis; intervertebral disc disorders; other back problems (4 sources) Chronic back pain ; Translations: [Dorsalgia, unspecified] 12-07-2023 Episodic Substance-related disorders (1 source) Nicotine dependence, [...] (SUSP) EXPOS COVID-19] Onset: 12-21-2021 Viral infection (5 sources) Viral disease; Translations: [Viral infection, unspecified] Episodic Past or Other Problems Problem Classification Problem Date Documented Da te Episodic/Chronic Calculus of urinary tract (20 sources) Ureteric stone; Translations: [Calculus of ureter] Onset: 07-19-2023 07-19-2023 Episodic Fracture of upper limb (1 source) Fracture at wrist and/or hand level; Translations: [Hydronephrosis with renal and ureteral calculous obstruction] Onset: 07-25-2023 Episodic Unclassified (1 source) COUGH, UNSPECIFIED; Translations: [COUGH, UNSPECIFIED] Onset: 03-23-2022 Unclassified (1 source) CONTACT W/AND (SUSP) EXPOS COVID-19; Translations: [CONTACT W/AND (SUSP) EXPOS COVID-19] Onset: 12-17-2021 Unclassified (1 source) Suspected COVID-19 virus infection Z20.822 Results Test Name Value Interpretation Reference Range Facility Redraw Potassiumon 4 Potassium [Moles/Vol] 3.4 mmol/L Low 3.5-5.1 [facility] Comment on above: Result Comment: PERF ORMED BY: [facility] [address] [place] [address] PATHOLOGIST COPY AND PRINT ASSOCIATE DONTE WHITAKER M.D. Performed By: #### R FRED Cardoza #### [address] XR chest 2V*on 01-16-2024 XR chest 2V* [facility] [address] [place] [address] [place] [id number] XRay Report Signed Patient: Manuela Davila MR#: [id number] : 1990 Acct:[id number] Age/Sex: 33 / M ADM Date: 01/15/24 Loc: ER Room: Type: [facility] ER Attending Dr: Copies to: Sang Lovett DO Ordering Provider: Sang Lovett DO Date of Service: 01/15/24 XR/XR chest 2V*: Shortness of Breath/Dyspnea PA AND LATERAL CHEST: CLINICAL HISTORY: Shortness of breath and midsternal chest pain. COMPARISON: None There is no focal parenchymal consolidation, effusion or pneumothorax. The cardiac, hilar and mediastinal silhouettes are within normal limits. There is no vascular congestion. The visualized bony thorax is intact. XR/XR chest 2V* IMPRESSION: NO ACUTE CARDIOPULMONARY ABNORMALITY. Impression dictated by: Leticia Gee M.D.01/16/2024 8:23 AM Dictation Location: [place] [address] Transcribed By: [facility] 01/16/24822 Dictated By: Leticia Gee MD 01/16/24822 Signed By: 01/16/24 08 Normal [facility] Alanine aminotransferase [En zymatic activity/volume] in Serum or PlasmaOrdered By: Sang Lovett on 01-15-2024 ALT [Catalytic activity/Vol] 69 U/L 7-52 [facility] Albumin [Mass/volume] in Ser um or Plasma by Bromocresol green (BCG) dye binding methoOrdered By: Sang Lovett on 01-15-2024 Albumin BCG dye [Mass/Vol] 4.7 g/dL 3.5-5.7 [facility] Alkaline phosphatase [Enzyma tic activity/volume] in Serum or PlasmaOrdered By: Sang Lovett on 03-24-2024 ALP [Catalytic activity/Vol] 48 U/L 34-104 [facility] Aspartate aminotransferase [ Enzymatic activity/volume] in Serum or PlasmaOrdered By: Sang Lovett on 01-15-2024 AST [Catalytic activity/Vol] 31 U/L 13-39 [facility] B-Type Natriuretic Peptideon 01-15-2024 Natriuretic peptide B (Bld) [Mass/Vol] 23.0 pg/mL Normal 5-100 [facility] Comment on above: Result Comment: PERF ORMED BY: [facility] [address] [place] [address] PATHOLOGIST [employer] ASSOCIATE DONTE WHITAKER M.D. Performed By: #### C BC, BNP, CK, HS TROP, CMP #### [facility] [address] Basophils Auto (Bld) [#/Vol] Ordered By: Sang Lovett on 01-15-2024 Basophils (Bld) [#/Vol] 0.1 10*3/uL 0.0-0.2 [facility] Basophils/100 WBC Auto (Bld) Ordered By: Sang Lovett on 01-15-2024 Basophils/100 WBC (Bld) 0.7 % . [facility] Bilirubin.total [Mass/volume ] in Serum or PlasmaOrdered By: Sang Lovett on 01-15-2024 Bilirubin [Mass/Vol] 0.5 mg/dL 0.3-1.0 [facility] Calcium [Mass/volume] in Ser um or PlasmaOrdered By: Sang Lovett on 01-15-2024 Calcium [Mass/Vol] 10.0 mg/dL 8.6-10.3 [facility] Carbon dioxide, total [Moles /volume] in Serum or PlasmaOrdered By: Sang Lovett on 01-15-2024 CO2 [Moles/Vol] 25.3 mmol/L 21.0-31.[address] [facility] Chloride [Moles/volume] in S jasvir or PlasmaOrdered By: Sang Lovett on 01-15-2024 Chloride [Moles/Vol] 103 mmol/L 98-107 [facility] Complete Blood Count Auto Di ffon 01-15-2024 Basophils (Bld) [#/Vol] 0.1 10*3/uL Normal 0.0-0.2 [facility] Comment on above: Result Comment: PERF ORMED BY: [place] [address] PATHOLOGIST COP[employer] ASSOCIATE DONTE WHITAKER M.D. Performed By: #### C BC, BNP, CK, HS TROP, CMP #### [address] Basophils/100 WBC (Bld) 0.7 % Normal . [facility] Comment on above: Performed By: #### C BC, BNP, CK, HS TROP, CMP #### [address] Eosinophils (Bld) [#/Vol] 0.0 10*3/uL Normal 0.0-0.45 [facility] Comment on above: Performed By: #### C BC, BNP, CK, HS TROP, CMP #### [address] Eosinophils/100 WBC (Bld) 0.1 % Normal . [facility] Comment on above: Performed By: #### C BC, BNP, CK, HS TROP, CMP #### [address] Erythrocyte distribution width (RBC) [Ratio] 12.8 % Normal 12.0-14.8 [facility] Comment on above: Performed By: #### C BC, BNP, CK, HS TROP, CMP #### [address] Hematocrit (Bld) [Volume fraction] 41.5 % Normal 38.8-50.0 [facility] Comment on above: Performed By: #### C BC, BNP, CK, HS TROP, CMP #### [address] Hemoglobin (Bld) [Mass/Vol] 14.4 g/dL Normal 13.0-17.0 [facility] Comment on above: Performed By: #### C BC, BNP, CK, HS TROP, CMP #### [address] Lymphocytes (Bld) [#/Vol] 2.5 10*3/uL Normal 1.00-4.8 [facility] Comment on above: Performed By: #### C BC, BNP, CK, HS TROP, CMP #### [address] Lymphocytes/100 WBC (Bld) 21.6 % Normal . [facility] Comment on above: Performed By: #### C BC, BNP, CK, HS TROP, CMP #### [address] MCH (RBC) [Entitic mass] 31.7 pg Normal 27.5-35.2 [facility] Comment on above: Performed By: #### C BC, BNP, CK, HS TROP, CMP #### [address] MCV (RBC) [Entitic vol] 91.5 fL Normal 83.5-101 [facility] Comment on above: Performed By: #### C BC, BNP, CK, HS TROP, CMP #### [address] Mean Corpuscular HGB Conc 34.6 g/dL Normal 32.5-35.6 [facility] Comment on above: Performed By: #### C BC, BNP, CK, HS TROP, CMP #### [address] Monocytes (Bld) [#/Vol] 1.0 10*3/uL High 0.0-0.8 [facility] Comment on above: Performed By: #### C BC, BNP, CK, HS TROP, CMP #### [address] Monocytes/100 WBC (Bld) 19.75 % Normal 0.00-20.00 [facility] Comment on above: Performed By: #### C BC, BNP, CK, HS TROP, CMP #### [address] [place] [address] [place] Monocytes/100 WBC (Bld) 8.3 % Normal . [facility] Comment on above: Performed By: #### C BC, BNP, CK, HS TROP, CMP #### [facility] [address] Neutrophils (Bld) [#/Vol] 8.0 10*3/uL High 1.8-7.7 [facility] Comment on above: Performed By: #### C BC, BNP, CK, HS TROP, CMP #### [address] Neutrophils/100 WBC (Bld) 69.3 % Normal . [facility] Comment on above: Performed By: #### C BC, BNP, CK, HS TROP, CMP #### [address] NRBC% 0.1 /100{WBC} Normal 0-0.5 [facility] Comment on above: Performed By: #### C BC, BNP, CK, HS TROP, CMP #### [address] Platelet mean volume (Bld) [Entitic vol] 8.8 fL Normal 6.6-10.1 [facility] Comment on above: Performed By: #### C BC, BNP, CK, HS TROP, CMP #### [place] [address] [place] Platelets (Bld) [#/Vol] 281 10*3/uL Normal 150-450 [facility] Comment on above: Performed By: #### C BC, BNP, CK, HS TROP, CMP #### [place] [address] [place] RBC (Bld) [#/Vol] 4.54 10*6/uL Normal 3.90-5.60 [facility] Comment on above: Performed By: #### C BC, BNP, CK, HS TROP, CMP #### [place] [address] [place] WBC (Bld) [#/Vol] 11.6 10*3/uL High 4.1-10.5 [facility] Comment on above: Performed By: #### C BC, BNP, CK, HS TROP, CMP #### [facility] [address] Comprehensive Metabolic Pane sky 01-15-2024 Albumin [Mass/Vol] 4.7 g/dL Normal 3.5-5.7 [facility] Comment on above: Performed By: #### Wilfredo Cardoza #### [address] Albumin/Globulin [Mass ratio] 2.1 {ratio} Normal [facility] Comment on above: Performed By: #### Wilfredo Cardoza #### [address] ALP [Catalytic activity/Vol] 48 U/L Normal 34-104 [facility] Comment on above: Performed By: #### Wilfredo Cardoza #### [address] ALT [Catalytic activity/Vol] 69 U/L High 7-52 [facility] Comment on above: Performed By: #### Wilfredo Cardoza #### [address] Anion gap [Moles/Vol] Not performed Normal 6.0-15.0 [facility] Comment on above: Performed By: #### Wilfredo Cardoza #### [address] AST [Catalytic activity/Vol] 31 U/L Normal 13-39 [facility] Comment on above: Performed By: #### Wilfredo Cardoza #### [address] Bilirubin [Mass/Vol] 0.5 mg/dL Normal 0.3-1.0 [facility] Comment on above: Performed By: #### Wilfredo Cardoza #### [address] Calcium [Mass/Vol] 10.0 mg/dL Normal 8.6-10.3 [facility] Comment on above: Performed By: #### Wilfredo Cardoza #### [facility] [address] Chloride [Moles/Vol] 103 mmol/L Normal 98-107 [facility] Comment on above: Performed By: #### Wilfredo Cardoza #### [facility] [address] CO2 [Moles/Vol] 25.3 mmol/L Normal 21.0-31.[address] [facility] Comment on above: Performed By: #### Wilfredo Cardoza #### [address] Creatinine [Mass/Vol] 1.00 mg/dL Normal 0.70-1.30 [facility] Comment on above: Performed By: #### Wilfredo Cardoza #### [place] [address] [place] Creatinine Clr Calc Pharmacy 118.10 Normal [facility] Comment on above: Result Comment: PERF ORMED BY: [place] [address] PATHOLOGIST [employer] PR[employer] ASSOCIATE DONTE WHITAKER M.D. Performed By: #### R FRED Cardoza #### [address] GFR/1.73 sq M.predicted MDRD (S/P/Bld) [Vol rate/Area] mL/min/{1.73_m2} Normal [facility] Comment on above: Performed By: #### Wilfredo Cardoza #### [facility] [address] [place] [address] [place] Globulin (S) [Mass/Vol] 2.2 g/dL Normal [facility] Comment on above: Performed By: #### R FRED Cardoza #### [address] Glucose [Mass/Vol] 91 mg/dL Normal 70-100 [facility] Comment on above: Result Comment: Neeru sandra Glucose Reference Range is dependent on time and content of last meal. Glucose of more than 200 mg/dL in a nonstressed, ambulatory subject supports the diagnosis of Diabetes Mellitus. ADA recommended reference range Performed By: #### R FRED Cardoza #### [facility] [address] [place] [address] [place] Potassium Normal 3.5-5.1 [facility] Comment on above: Result Comment: Spec imen hemolyzed, redraw requested Performed By: #### R FRED Cardoza #### [facility] [address] [place] [address] [place] Protein [Mass/Vol] 6.9 g/dL Normal 6.4-8.9 [facility] Comment on above: Performed By: #### Wilfredo Cardoza #### [facility] [address] [place] [address] [place] Sodium [Moles/Vol] 137 mmol/L Normal 136-145 [facility] Comment on above: Performed By: #### Wilfredo Cardoza #### [facility] [address] [place] [id number] [place] Urea nitrogen [Mass/Vol] 17 mg/dL Normal 7-25 [facility] Comment on above: Performed By: #### Wilfredo Cardoza #### [facility] [address] [place] [id number] [place] Creatine Kinaseon 01-15-2024 CK [Catalytic activity/Vol] 429 U/L High [facility] Comment on above: Performed By: #### Wilfredo Cardoza #### [facility] [address] [place] [id number] [place] Creatine kinase [Enzymatic a ctivity/volume] in Serum or PlasmaOrdered By: Sang Lovett on 01-15-2024 CK [Catalytic activity/Vol] 429 U/L [facility] Creatinine [Mass/volume] in Serum or PlasmaOrdered By: Sang Lovett on 01-15-2024 Creatinine [Mass/Vol] 1.00 mg/dL 0.70-1.30 [facility] ECG 12 lead ECGon 01-15-2024 ECG 12 lead ECG [facility] [place] [address] [place] [address] Electrocardiograph Report Signed Patient: Manuela Davila MR#: [id number] : 1990 Acct:[id number] Age/Sex: 33 / M ADM Date: 01/15/24 Loc: ER Room: Type: [facility] ER Attending Dr: Ordering Provider: Sang Lovett DO Date of Service: 01/15/24 ECG/ECG 12 lead ECG: Shortness of Breath/Dyspnea Copies to: Test Reason : Blood Pressure : 132/080 mmHG Vent. Rate : 087 BPM Atrial Rate : 087 BPM P-R Int : 136 ms QRS Dur : 088 ms QT Int : 356 ms P-R-T Axes : 047 069 013 degrees QTc Int : 428 ms Normal sinus rhythm Normal ECG No previous ECGs available Confirmed by Sang Lovett DO ([id number]) on 01/15/2024 10:04:50 PM Referred By: Electronically Signed By:Sang Lovett DO Transcribed By: MUS Signed By Sang Lovett DO 4 2204 Normal [facility] Eosinophils Auto (Bld) [#/Vo l]Ordered By: Sang Lovett on 01-15-2024 Eosinophils (Bld) [#/Vol] 0.0 10*3/uL 0.0-0.45 [facility] Eosinophils/100 WBC Auto (Bl d)Ordered By: Sang Lovett on 01-15-2024 Eosinophils/100 WBC (Bld) 0.1 % . [facility] Erythrocyte distribution wid th Auto (RBC) [Ratio]Ordered By: Sang Lovett on 01-15-2024 Erythrocyte distribution width (RBC) [Ratio] 12.8 % 12.0-14.8 [facility] Globulin Calc (S) [Mass/Vol] Ordered By: Sang Lovett on 01-15-2024 Globulin (S) [Mass/Vol] 2.2 g/dL [facility] Glucose [Mass/volume] in Ser um or PlasmaOrdered By: Sang Lovett on 01-15-2024 Glucose [Mass/Vol] 91 mg/dL 70-100 [facility] Comment on above: ADA recommended refe rence rangeRandom Glucose Reference Range is dependent on time and content of last meal. Glucose of more than 200 mg/dL in a nonstressed, ambulatory subject supports the diagnosis of Diabetes Mellitus. Hematocrit Auto (Bld) [Volum e fraction]Ordered By: Sang Lovett on 01-15-2024 Hematocrit (Bld) [Volume fraction] 41.5 % 38.8-50.0 [facility] Hemoglobin [Mass/volume] in BloodOrdered By: Sang Lovett on 01-15-2024 Hemoglobin (Bld) [Mass/Vol] 14.4 g/dL 13.0-17.0 [facility] Leukocytes [#/volume] correc michael for nucleated erythrocytes in Blood by Automated counOrdered By: Sang Lovett on 01-15-2024 WBC corrected for nucl RBC Auto (Bld) [#/Vol] 11.6 10*3/uL 4.1-10.5 [facility] Lymphocytes Auto (Bld) [#/Vo l]Ordered By: Sang Lovett on 01-15-2024 Lymphocytes (Bld) [#/Vol] 2.5 10*3/uL 1.00-4.8 [facility] Lymphocytes/100 WBC Auto (Bl d)Ordered By: Sang Lovett on 01-15-2024 Lymphocytes/100 WBC (Bld) 21.6 % . [facility] MCH Auto (RBC) [Entitic mass ]Ordered By: Sang Lovett on 01-15-2024 MCH (RBC) [Entitic mass] 31.7 pg 27.5-35.2 [facility] MCHC Auto (RBC) [Mass/Vol]Or dered By: Sang Lovett on 01-15-2024 MCHC (RBC) [Mass/Vol] 34.6 g/dL 32.5-35.6 [facility] MCV Auto (RBC) [Entitic vol] Ordered By: Sang Lovett on 01-15-2024 MCV (RBC) [Entitic vol] 91.5 fL 83.5-101 F [facility] Monocyte distribution width [Entitic volume] in Blood by AutomatedOrdered By: Sang Lovett on 01-15-2024 Monocyte distribution width Auto (Bld) [Entitic vol] 19.75 % 0.00-20.00 [facility] Monocytes Auto (Bld) [#/Vol] Ordered By: Sang Lovett on 01-15-2024 Monocytes (Bld) [#/Vol] 1.0 10*3/uL 0.0-0.8 [facility] Monocytes/100 WBC Auto (Bld) Ordered By: Sang Lovett on 01-15-2024 Monocytes/100 WBC (Bld) 8.3 % . [facility] Natriuretic peptide B [Mass/ Vol]Ordered By: Sang Lovett on 01-15-2024 Natriuretic peptide B (Bld) [Mass/Vol] 23.0 pg/mL 5-100 [facility] Neutrophils Auto (Bld) [#/Vo l]Ordered By: Sang Lovett on 01-15-2024 Neutrophils (Bld) [#/Vol] 8.0 10*3/uL 1.8-7.7 [facility] Neutrophils/100 WBC Auto (Bl d)Ordered By: Sang Lovett on 01-15-2024 Neutrophils/100 WBC (Bld) 69.3 % . [facility] No Panel InformationOrdered By: Sang Lovett on 01-15-2024 Estimated GFR (CKD-EPI) > 60.0 mL/Min [facility] Creatinine Clearance (Chem 118.10 [facility] Nucleated erythrocytes [Pres ence] in Blood by Automated countOrdered By: Sang Lovett on 01-15-2024 Nucleated RBC Auto Ql (Bld) 0.1 /100{WBC} 0-0.5 [facility] Platelet mean volume Auto (B ld) [Entitic vol]Ordered By: Sang Lovett on 01-15-2024 Platelet mean volume (Bld) [Entitic vol] 8.8 fL 6.6-10.1 [facility] Platelets Auto (Bld) [#/Vol] Ordered By: Sang Lovett on 01-15-2024 Platelets (Bld) [#/Vol] 281 10*3/uL 150-450 [facility] Potassium [Moles/volume] in Serum or PlasmaOrdered By: Sang Lovett on 01-15-2024 Potassium [Moles/Vol] 3.4 mmol/L 3.5-5.1 [facility] Protein [Mass/volume] in Ser um or PlasmaOrdered By: Sang Lovett on 01-15-2024 Protein [Mass/Vol] 6.9 g/dL 6.4-8.9 [facility] RBC Auto (Bld) [#/Vol]Ordere d By: Sang Lovett on 01-15-2024 RBC (Bld) [#/Vol] 4.54 10*6/uL 3.90-5.60 [facility] Serum or plasma albumin/glob ulin mass ratioOrdered By: Sang Lovett on 01-15-2024 Albumin/Globulin [Mass ratio] 2.1 {ratio} [facility] Serum or plasma anion gap de terminationOrdered By: Sang Lovett on 01-15-2024 Anion gap [Moles/Vol] TNP [facility] Comment on above: Test not performed Sodium [Moles/volume] in Ser um or PlasmaOrdered By: Sang Lovett on 01-15-2024 Sodium [Moles/Vol] 137 mmol/L 136-145 [facility] Troponin I High Sensitivityo n 01-15-2024 Troponin I High Sensitivity 4.7 pg/mL Normal 0.0-20.0 [facility] Comment on above: Result Comment: PERF ORMED BY: [place] [address] PATHOLOGIST COPY AND PRINT ASSOCIATE DONTE WHITAKER M.D. Performed By: #### R FRED Cardoza #### [address] Troponin I.cardiac [Mass/vol ume] in Serum or Plasma by Detection limit <= 0.01 ng/Ordered By: Sang Lovett on 01-15-2024 Troponin I.cardiac DL <= 0.01 ng/mL [Mass/Vol] 4.7 pg/mL 0.0-20.0 [facility] Urea nitrogen [Mass/volume] in Serum or PlasmaOrdered By: Sang Lovett on 03-24-2024 Urea nitrogen [Mass/Vol] 17 mg/dL 05-17 [facility] WBC Auto (Bld) [#/Vol]Ordere d By: Sang Lovett on 01-15-2024 WBC (Bld) [#/Vol] 11.6 10*3/uL 4.1-10.5 [facility] COVID + FLU Quick Testingon 11-21-2023 SARS-CoV-2 (COVID-19) RNA DANILO+probe Ql (Unsp spec) Negative [facility] Other COVID + FLU Quick Testing Negative [facility] Other Quick Strepon 11-21-2023 S. pyogenes Org specific cx Ql (Throat) Negative [facility] op5 Other Quick Strep Amimon [facility] AGELON ? Other Lab Reportson 10-10-2023 Lab Reports [id number] 17#1.00TIFF Normal [facility] Ambulatory Visit Summaryon 1 11-28-2022 Ambulatory Visit Summary KAYLYNN MANUELA Abbi :1990 Visit Date:09/27/2023 Ambulatory Visit Instructions Your Diagnosis Kidney stone Ureteral stone Tests Performed Urnls Dip Stick Auto w/o Microscopy POC 01618 Your Care Team Attending Physician - VERO [...] PERSON, Mina Nam Where: [facility] Lis Torres [facility] Patient Educationon 09-27-20 Patient Education Nephrology [...] Spinach (cooked), rhubarb, beets, sweet potatoes, and Filipino chard. ? Peanuts. ? Potato chips, cayman islander fries, and baked potatoes with skin on. ? Nuts and nut products. ? Chocolate. ? If you regularly take a diuretic medicine, make sure to eat at least 1 or 2 servings of fruits or vegetables that are high in potassium each day. These include: ? Avocado. ? Banana. ? [place], prune, carrot, or tomato juice. ? Baked [...] fish oil, or vitamin B6. ? Take kqjz-dps-tqczahj and prescription medicines only as told by your health care provider. These include supplements. What foods sh (more content not included)... Normal [facility] Urology Office/Clinic Noteon 09-27-2023 Urology Office/Clinic Note [...] Contact Information UNRULY GARDNER, VERO Urbina, URL [address] [facility] [place] [address] [phone] Additional Instructions: has f/u with [facility] 02/14/2024 Patient Education Dietary Guidelines to Help Prevent Kidney Stones Documentation recorded by the angel Lind accurately reflects the services(s) I performed and decisions made by me. Authenticated by Vero Tolliver PA-C on 09/27/2023 12:27:44. Carissa Garza, personally scribed for Vero Tolliver PA-C on [...] Protein Urine Dipstick: Negative (09/27/23 11:30:00) Specific [place] Urine Dipstick: 1.020 (09/27/23 11:30:00) Urine Appearance Urine Dipstick: Clear (09/27/23 11:30:00) Urine Color Urine Dipstick: Yellow (09/27/23 11:30:00) Urobilinogen Urine Dipstick: Normal 0.2-1 EU/dl (09/27/23 11:30:00) pH Urine Dipstick: 6 (09/27/23 11:30:00) Normal [facility] Comment on above: Result Comment: Elec tronically Signed By: VERO TOLLIVER PA-C\.br\Date and Time Signed: 09/27/23 12:27 EST\.br\Electronically Co-Signed By: Carissa Lind\Fabricebr\Date and Time Co-Signed: 09/27/23 12:17 EST Lab Reportson 09-01-2023 Lab Reports [id number] 1B#1.00TIFF Normal [facility] Lab Reportson 08-18-2023 Lab Reports [id number] 12#1.00TIFF Normal [facility] Formson 08-16-2023 Forms [id number] 73#1.00TIFF Normal [facility] Pathology Noteon 08-12-2023 Pathology Note [id number] DB#1.00TIFF Normal [facility] Operative Reporton Operative Report [id number] A0#1.00TIFF Normal [facility] RAD - MISCon 08-09-2023 RAD - MISC [id number] 25#1.00TIFF Normal [facility] RAD - MISC [id number] E8#1.00TIFF Normal [facility] Calculi, Urinaryon 3 Ca Oxalate Dihydrate 60 % Normal . [facility] Comment on above: Performed By: #### C ALCULI #### [facility] , Ca Oxalate Monohydrate 35 % Normal . [facility] Comment on above: Performed By: #### C ALCULI #### [facility] , Color (U) Brown Normal . [facility] Comment on above: Performed By: #### C ALCULI #### [facility] , Comment1 Normal . [facility] Comment on above: Result Comment: Calc ium phosphate (hydroxyl form) includes hydroxyapatite, amorphous calcium phosphate, and whitlockite. Hydroxyapatite is the most common of the calcium phosphate salts found in human kidney stones. Performed By: #### C ALCULI #### [facility] , Comment: Normal . [facility] Comment on above: Result Comment: Phys ician questions regarding Calculi Analysis contact [facility] at: [phone]. Performed By: #### C ALCULI #### [facility] , Composition Normal . [facility] Comment on above: Result Comment: Perc entage (Represents the % composition) Performed By: #### C ALCULI #### [facility] , Disclaimer: Normal . [facility] Comment on above: Result Comment: This test was developed and its performance characteristics determined by [facility]. It has not been cleared or approved by the Food and Drug Administration. Performed at: [facility] [place] [id number] Rigging Up Man: Coleman Vargas PhD, Phone: [phone] Performed By: #### C ALCULI #### [facility] , Hydroxyapatite 5 % Normal . [facility] Comment on above: Performed By: #### C ALCULI #### [facility] , Note Normal . [facility] Comment on above: Result Comment: Calc jodi report will follow via computer, mail or farmworker chicken farm delivery. PERFORMED BY: [facility] [address] [place] [address] PATHOLOGIST COPY AND PRINT ASSOCIATE DONTE WHITAKER M.D. Performed By: #### C ALCULI #### [facility] , Photo Normal . [facility] Comment on above: Result Comment: Phot ograph will follow under a separate cover Performed By: #### C ALCULI #### [facility] , Size 4x3 Normal . [facility] Comment on above: Result Comment: Mult iple pieces received. Dimensions of the largest piece reported. Performed By: #### C ALCULI #### [facility] , Source Normal . [facility] Comment on above: Result Comment: Righ t Kidney Performed By: #### C ALCULI #### [facility] , Weight 28 Normal . [facility] Comment on above: Performed By: #### C ALCULI #### [facility] , [place] urethrocystogram retroon 08-08-2023 [place] urethrocystogram retro [facility] [place] [address] Fluoroscopy Report Signed Patient: Manuela Davila MR#: [id number] : 1990 Acct:[id number] Age/Sex: 32 / M ADM Date: 08/08/23 Loc: PA Room: Type: [facility] Attending Dr: Mina Baez MD Copies [...] Elvira Ramos M.D.08/08/2023 4:54 PM Dictation Location: [place] [address] Transcribed By: [facility] 08/08/231653 Dictated By: Elvira Ramos II, MD 08/08/231650 Signed By: 08/08/231653 [facility] 08-08-2023 L Specimen: [id number] Received: 08/09/23 Status: MARGARET Doziercornel Num: [id number] Spec Type: Surgical Subm Dr: Mina Baez MD Tissues: A Urinary Calculus (RT KIDNEY STONE) Procedures: Level 1 Gross Age/ Patient Sex Location Account Attending Physician Manuela Davila 32/M PA [id number] Mina Baez MD SPEC NUM: [id number] RECD: 08/09/23 STATUS: MARGARET ALISON NUM: [id number] IRINA: 08/08/[address] [facility] [address]: Mina Baez MD ENTERED: 08/09/[address]: SPEC TYPE: Surgical DEPT: S ORDERED: Level 1 [...] chemical analysis. Gross examination only. CPT Codes 80013 Specimen: [id number] Received: 08/09/23 Status: MARGARET Vega Num: [id number] Spec Type: Surgical Subm Dr: Mina Baez MD Tissues: A Urinary Calculus (RT KIDNEY STONE) Procedures: Level 1 Gross Patient: Manuela Davila [id number] (Continued) Signed (signatur e on file) Kevin Rodríguez MD 08/10/23 1348 Normal [facility] XR KUBon 08-08-2023 XR KUB [facility] [place] [address] XRay Report Signed Patient: Manuela Davila MR#: [id number] : 1990 Acct:[id number] Age/Sex: 32 / M ADM Date: 08/08/23 Loc: PA Room: Type: [facility] Attending Dr: Mina Baez MD Copies [...] Leticia Gee M.D.08/08/2023 3:07 PM Dictation Location: [place] [address] Transcribed By: [facility] 08/08/23 1507 Dictated By: Leticia Gee MD 08/08/23 1504 Signed By: 08/08/23 1507 [facility] Insurance Correspondenceon 1 Insurance Correspondence [id number] 997#1.00TIFF [facility] RAD - MISCon 08-01-2023 RAD - MISC [id number] 9C#1.00TIFF [facility] RAD - MISCon 07-27-2023 RAD - MISC [id number] 65#1.00CD:127 Normal [facility] [place] urethrocystogram retroon 07-26-2023 [place] urethrocystogram retro [facility] [place] [address] [place] [address] Fluoroscopy Report Signed Patient: Manueal Davila MR#: [id number] : 1990 Acct:[id number] Age/Sex: 32 / M ADM Date: 07/25/23 Loc: PA Room: Type: [facility] Attending Dr: Mina Baez MD Copies to: [...] Dutch Nuñez M.D.07/26/2023 9:28 AM Dictation Location: [place] [address] Transcribed By: [facility] 07/26/23927 Dictated By: Dutch Nuñez DO 07/26/23926 Signed By: 07/26/23927 [facility] Operative Reporton Operative Report [id number] 94#1.00CD:127 Normal [facility] Ambulatory Visit Summaryon 1 Ambulatory Visit Summary MANUELA DAVILA :1990 Visit Date:07/25/2023 Ambulatory Visit Instructions Your Diagnosis Ureteral stone Tests Performed Urnls Dip Stick Auto w/o Microscopy POC 86817 Your Care Team Attending Physician - NESTOR PERSON, Mina Nam This Is Your Medications List Contact prescribing physician if questions or concerns valacyclovir (valacyclovir 1 g Tab) Procedures Performed History of hernia repair, Tonsillectomy. Discharge Vitals Heart Rate (Peripheral) 80 Blood Pressure 134/82 Height 175 cm Height 69 in Weight 89.5 kg Weight 196.9 lb BMI 29.22 What to do next You Need to Schedule the Following Appointments Follow Up with NESTOR PERSON, CADEN Farrar When: Where: [address] [facility] [facility] [address] [place] [address]- Medications What When Instructions Unchanged valacyclovir (valacyclovir 1 g Tab) Contact prescribing physician if questions or concerns Test Results Urnls Dip Stick Auto w/o Microscopy POC 60452 (07/25/2023) Bilirubin Urine Dipstick - Negative Blood Urine Dipstick - Trace-lysed Glucose Urine Dipstick - Negative Ketones Urine Dipstick - Negative Leukocytes Urine Dipstick - Negative Nitrite Urine Dipstick - Negative Protein Urine Dipstick - Negative Specific [place] Urine Dipstick - >=1.030 Urine Appearance Urine [...] These include: (more content not included)... Normal [facility] ED Note-Physicianon 07-25-20 ED Note-Physician [id number] 69#1.00CD:127 [facility] Formson 07-25-2023 Forms [id number] AB#1.00CD:127 [facility] Patient Educationon 07-25-20 Patient Education Nephrology [...] Spinach (cooked), rhubarb, beets, sweet potatoes, and Filipino chard. ? Peanuts. ? Potato chips, cayman islander fries, and baked potatoes with skin on. ? Nuts and nut products. ? Chocolate. ? If you regularly take a diuretic medicine, make sure to eat at least 1 or 2 servings of fruits or vegetables that are high in potassium each day. These include: ? Avocado. ? Banana. ? [place], prune, carrot, or tomato juice. ? Baked [...] fish oil, or vitamin B6. ? Take gvkv-ocz-iozfytn and prescription medicines only as told by your health care provider. These include supplements. What foods should I limit? Limit your in (more content not included)... Normal [facility] RAD - MISCon 07-25-2023 RAD - MIS [id number] 80#1.00CD:127 Normal [facility] Urology Office/Clinic Noteon 07-25-2023 Urology Office/Clinic Note Chief Complaint Pt is here for [facility] f/u HPI Staff Manuela is a 32 y.o. male here for [facility] follow up for kidney stones w/ KUB. Pt presented to [facility] on 07/19/23 for RT flank pain. [...] (N20.1: Calculus of ureter) Pt presented to [facility] on 07/19/23 for RT flank pain. [...] if possible Follow-up With When Contact Information NESTOR PERSON, Mina Nam, URL [address] [place] [address]- Additional Instructions: Sched Cysto with retro Stent Placement w/pos ureteroscopy Regina (more content not included)... Normal [facility] Comment on above: Result Comment: Elec tronically Signed By: NESTOR PERSON, Mina Nam\.br\Date and Time Signed: 07/25/23 09:50 EDT\.br\Electronically Co-Signed By: Lala Galvan\.br\Date and Time Co-Signed: 07/25/23 09:35 EDT XR KUBon 07-25-2023 XR KUB [facility] Main [address] [address] XRay Report Signed Patient: Manuela Davila MR#: [id number] : 1990 Acct:[id number] Age/Sex: 32 / M ADM Date: 07/25/23 Loc: [place] Room: Type: [facility] Attending Dr: Mina Baez MD Copies [...] Leticia Gee M.D.07/25/2023 4:58 PM Dictation Location: [place] [address] Transcribed By: [facility] 07/25/231657 Dictated By: Leticia Gee MD 07/25/23 1654 Signed By: 07/25/23 1658 Normal [facility] XR KUB [facility] Main [address] [address] XRay Report Signed Patient: Manuela Davila MR#: [id number] : 1990 Acct:[id number] Age/Sex: 32 / M ADM Date: 07/25/23 Loc: XD Room: Type: [facility] Attending Dr: Mina Baez MD Copies [...] Leticia Gee M.D.07/25/2023 12:49 PM Dictation Location: [place] [address] Transcribed By: [facility] 07/25/23 1249 Dictated By: Leticia Gee MD 07/25/23 1246 Signed By: 07/25/23 1249 Normal [facility] Alanine aminotransferase [En zymatic activity/volume] in Serum or PlasmaOrdered By: Aracelis Robertson on 07-19-2023 ALT [Catalytic activity/Vol] 54 U/L 7-52 [facility] Albumin [Mass/volume] in Ser um or Plasma by Bromocresol green (BCG) dye binding methoOrdered By: Aracelis Robertson on 07-19-2023 Albumin BCG dye [Mass/Vol] 4.8 g/dL 3.5-5.7 [facility] Alkaline phosphatase [Enzyma tic activity/volume] in Serum or PlasmaOrdered By: Aracelis Robertson on 07-19-2023 ALP [Catalytic activity/Vol] 55 U/L 34-104 [facility] Aspartate aminotransferase [ Enzymatic activity/volume] in Serum or PlasmaOrdered By: Aracelis Robertson on 07-19-2023 AST [Catalytic activity/Vol] 21 U/L 13-39 [facility] Automated erythrocytes count in urine sediment (number/area)Ordered By: PROVIDER TEMP on 07-19-2023 RBC Auto (Urine sed) [#/Area] Innumerable [HPF] 0-4 [facility] Automated leukocytes count i n urine sediment (number/area)Ordered By: PROVIDER TEMP on 07-19-2023 WBC Auto (Urine sed) [#/Area] 1-2 [HPF] 0-4 [facility] Basic Metabolic Panelon 06-25 Anion gap [Moles/Vol] 10.5 mmol/L Normal 6.0-15.0 [facility] Comment on above: Performed By: #### B MP, HEPATIC, CBC, LIPASE #### [facility] [address] Calcium [Mass/Vol] 10.2 mg/dL Normal 8.6-10.3 [facility] Comment on above: Performed By: #### B MP, HEPATIC, CBC, LIPASE #### [facility] [address] Chloride [Moles/Vol] 103 mmol/L Normal 98-107 [facility] Comment on above: Performed By: #### B MP, HEPATIC, CBC, LIPASE #### [facility] [address] [place] [address] [place] CO2 [Moles/Vol] 29.2 mmol/L Normal 21.0-31.[address] [facility] Comment on above: Performed By: #### B MP, HEPATIC, CBC, LIPASE #### [facility] [address] [place] [address] [place] Creatinine [Mass/Vol] 0.99 mg/dL Normal 0.70-1.30 [facility] Comment on above: Performed By: #### B MP, HEPATIC, CBC, LIPASE #### [facility] [address] [place] [address] [place] Creatinine Clr Calc Pharmacy 115.43 Normal [facility] Comment on above: Performed By: #### B MP, HEPATIC, CBC, LIPASE #### [facility] [address] [place] [address] [place] GFR/1.73 sq M.predicted MDRD (S/P/Bld) [Vol rate/Area] mL/min/{1.73_m2} Normal [facility] Comment on above: Performed By: #### B MP, HEPATIC, CBC, LIPASE #### [facility] [address] Glucose [Mass/Vol] 105 mg/dL High 70-100 [facility] Comment on above: Result Comment: [facility] Glucose Reference Range is dependent on time and content of last meal. Glucose of more than 200 mg/dL in a nonstressed, ambulatory subject supports the diagnosis of Diabetes Mellitus. ADA recommended reference range Performed By: #### B MP, HEPATIC, CBC, LIPASE #### [facility] [address] Potassium [Moles/Vol] 3.7 mmol/L Normal 3.5-5.1 [facility] Comment on above: Performed By: #### B MP, HEPATIC, CBC, LIPASE #### [facility] [address] [place] [address] Sodium [Moles/Vol] 139 mmol/L Normal 136-145 [facility] Comment on above: Performed By: #### B MP, HEPATIC, CBC, LIPASE #### [facility] [address] [place] [address] Urea nitrogen [Mass/Vol] 12 mg/dL Normal 7-25 [facility] Comment on above: Performed By: #### B MP, HEPATIC, CBC, LIPASE #### [facility] [address] [place] [address] Basophils Auto (Bld) [#/Vol] Ordered By: Aracelis Robertson on 07-19-2023 Basophils (Bld) [#/Vol] 0.1 10*3/uL 0.0-0.2 [facility] Basophils/100 WBC Auto (Bld) Ordered By: Aracelis Robertson on 07-19-2023 Basophils/100 WBC (Bld) 0.8 % . [facility] Bilirubin Test strip Ql (U)O rdered By: PROVIDER TEMP on 07-19-2023 Bilirubin Ql (U) Negative Negative [facility] Bilirubin.direct [Mass/volum e] in Serum or PlasmaOrdered By: Aracelis Robetrson on 07-19-2023 Bilirubin.direct [Mass/Vol] 0.10 mg/dL 0.03-0.18 [facility] Bilirubin.total [Mass/volume ] in Serum or PlasmaOrdered By: Aracelis Robertson on 07-19-2023 Bilirubin [Mass/Vol] 0.6 mg/dL 0.3-1.[address] [facility] [address] abdomen pelvis wo conon 0 07-19-2023 CT abdomen pelvis wo con [facility] [address] CT Scan Report Signed Patient: Manuela Davila MR#: [id number] : 1990 Acct:[id number] Age/Sex: 32 / M ADM Date: 07/19/23 Loc: ER Room: Type: [facility] ER Attending Dr: Copies to: Aracelis Robertson [...] Elvira Ramos M.D.07/19/2023 7:42 PM Dictation Location: [place] [address] Transcribed By: [facility] 07/19/231941 Dictated By: Elvira Ramos II, MD 07/19/231935 Signed By: 07/19/231941 Normal [facility] Calcium [Mass/volume] in Ser um or PlasmaOrdered By: Aracelis Robertson on 07-19-2023 Calcium [Mass/Vol] 10.2 mg/dL 8.6-10.3 [facility] Carbon dioxide, total [Moles /volume] in Serum or PlasmaOrdered By: Aracelis Robertson on 07-19-2023 CO2 [Moles/Vol] 29.2 mmol/L 21.0-31.[address] [facility] Chloride [Moles/volume] in S jasvir or PlasmaOrdered By: Aracelis Robertson on 07-19-2023 Chloride [Moles/Vol] 103 mmol/L 98-107 [facility] Color Auto (U)Ordered By: CORI KITCHEN on 07-19-2023 Color (U) [place] Yellow [facility] Complete Blood Count Auto Di ffon 07-19-2023 Basophils (Bld) [#/Vol] 0.1 10*3/uL Normal 0.0-0.2 [facility] Comment on above: Result Comment: PERF ORMED BY: [facility] [address] [place] [address] PATHOLOGIST [employer] ASSOCIATE DONTE WHITAKER M.D. Performed By: #### B MP, HEPATIC, CBC, LIPASE #### [facility] [address] Basophils/100 WBC (Bld) 0.8 % Normal . [facility] Comment on above: Performed By: #### B MP, HEPATIC, CBC, LIPASE #### [facility] [address] Eosinophils (Bld) [#/Vol] 0.1 10*3/uL Normal 0.0-0.45 [facility] Comment on above: Performed By: #### B MP, HEPATIC, CBC, LIPASE #### [address] Eosinophils/100 WBC (Bld) 1.6 % Normal . [facility] Comment on above: Performed By: #### B MP, HEPATIC, CBC, LIPASE #### [address] Erythrocyte distribution width (RBC) [Ratio] 12.7 % Normal 12.0-14.8 [facility] Comment on above: Performed By: #### B MP, HEPATIC, CBC, LIPASE #### [address] Hematocrit (Bld) [Volume fraction] 44.2 % Normal 38.8-50.0 [facility] Comment on above: Performed By: #### B MP, HEPATIC, CBC, LIPASE #### [address] Hemoglobin (Bld) [Mass/Vol] 15.2 g/dL Normal 13.0-17.0 [facility] Comment on above: Performed By: #### B MP, HEPATIC, CBC, LIPASE #### [place] [address] [place] Lymphocytes (Bld) [#/Vol] 2.1 10*3/uL Normal 1.00-4.8 [facility] Comment on above: Performed By: #### B MP, HEPATIC, CBC, LIPASE #### [address] Lymphocytes/100 WBC (Bld) 27.4 % Normal . [facility] Comment on above: Performed By: #### B MP, HEPATIC, CBC, LIPASE #### [address] MCH (RBC) [Entitic mass] 31.7 pg Normal 27.5-35.2 [facility] Comment on above: Performed By: #### B MP, HEPATIC, CBC, LIPASE #### [address] MCV (RBC) [Entitic vol] 92.3 fL Normal 83.5-101 [facility] Comment on above: Performed By: #### B MP, HEPATIC, CBC, LIPASE #### [address] Mean Corpuscular HGB Conc 34.3 g/dL Normal 32.5-35.6 [facility] Comment on above: Performed By: #### B MP, HEPATIC, CBC, LIPASE #### [address] Monocytes (Bld) [#/Vol] 0.6 10*3/uL Normal 0.0-0.8 [facility] Comment on above: Performed By: #### B MP, HEPATIC, CBC, LIPASE #### [address] Monocytes/100 WBC (Bld) 16.55 % Normal 0.00-20.00 [facility] Comment on above: Performed By: #### B MP, HEPATIC, CBC, LIPASE #### [address] Monocytes/100 WBC (Bld) 7.1 % Normal . [facility] Comment on above: Performed By: #### B MP, HEPATIC, CBC, LIPASE #### [address] Neutrophils (Bld) [#/Vol] 4.9 10*3/uL Normal 1.8-7.7 [facility] Comment on above: Performed By: #### B MP, HEPATIC, CBC, LIPASE #### [address] Neutrophils/100 WBC (Bld) 63.1 % Normal . [facility] Comment on above: Performed By: #### B MP, HEPATIC, CBC, LIPASE #### [address] NRBC% 0.1 /100{WBC} Normal 0-0.5 [facility] Comment on above: Performed By: #### B MP, HEPATIC, CBC, LIPASE #### [address] Platelet mean volume (Bld) [Entitic vol] 8.4 fL Normal 6.6-10.1 [facility] Comment on above: Performed By: #### B MP, HEPATIC, CBC, LIPASE #### [address] Platelets (Bld) [#/Vol] 244 10*3/uL Normal 150-450 [facility] Comment on above: Performed By: #### B MP, HEPATIC, CBC, LIPASE #### [address] RBC (Bld) [#/Vol] 4.79 10*6/uL Normal 3.90-5.60 [facility] Comment on above: Performed By: #### B MP, HEPATIC, CBC, LIPASE #### [address] WBC (Bld) [#/Vol] 7.8 10*3/uL Normal 4.1-10.5 [facility] Comment on above: Performed By: #### B MP, HEPATIC, CBC, LIPASE #### [address] Creatinine [Mass/volume] in Serum or PlasmaOrdered By: Aracelis Robertson on 07-19-2023 Creatinine [Mass/Vol] 0.99 mg/dL 0.70-1.30 [facility] Dipstick and Microscopicon 0 07-19-2023 Appearance (U) Cloudy Critically abnormal Clear [facility] Comment on above: Order Comment: Name Collection Type:: Clean-Voided Midstream Performed By: #### A DDONUAPLUS #### [facility] [address] [place] [address] [place] Bacteria,Urine None Seen Normal None Seen [facility] Comment on above: Order Comment: Name Collection Type:: Clean-Voided Midstream Performed By: #### A DDONUAPLUS #### [facility] [address] [place] [address] [place] Bilirubin,Urine Negative Normal Negative [facility] Comment on above: Order Comment: Name Collection Type:: Clean-Voided Midstream Performed By: #### A DDONUAPLUS #### [facility] [address] [place] [address] [place] Color (U) [place] Critically abnormal Yellow [facility] Comment on above: Order Comment: Name Collection Type:: Clean-Voided Midstream Performed By: #### A DDONUAPLUS #### [facility] [address] [place] [address] [place] Glucose Ql (U) Normal Normal Normal [facility] Comment on above: Order Comment: Name Collection Type:: Clean-Voided Midstream Performed By: #### A DDONUAPLUS #### [facility] [address] [place] [address] [place] Hyaline Casts,Urine None Seen Normal 0-8 [facility] Comment on above: Order Comment: Name Collection Type:: Clean-Voided Midstream Result Comment: PERF ORMED BY: [place] [address] PATHOLOGIST [employer] ASSOCIATE DONTE WHITAKER M.D. Performed By: #### A DDONUAPLUS #### [facility] [address] [place] [address] [place] Ketones Ql (U) Negative Normal Negative [facility] Comment on above: Order Comment: Name Collection Type:: Clean-Voided Midstream Performed By: #### A DDONUAPLUS #### [facility] [address] [place] [address] [place] Leukocyte esterase Test strip Ql (U) 1+ High Negative [facility] Comment on above: Order Comment: Name Collection Type:: Clean-Voided Midstream Performed By: #### A DDONUAPLUS #### [facility] [address] [place] [address] [place] Nitrite,Urine Negative Normal Negative [facility] Comment on above: Order Comment: Name Collection Type:: Clean-Voided Midstream Performed By: #### A DDONUAPLUS #### [facility] [address] [place] [address] [place] Occult Blood,Urine 3+ High Negative [facility] Comment on above: Order Comment: Name Collection Type:: Clean-Voided Midstream Result Comment: PERF ORMED BY: [place] [address] PATHOLOGIST [employer] ASSOCIATE DONTE WHITAKER M.D. Performed By: #### A DDONUAPLUS #### [facility] [address] [place] [address] [place] pH (U) 5.5 [pH] Normal 5.0-9.0 [facility] Comment on above: Order Comment: Name Collection Type:: Clean-Voided Midstream Performed By: #### A DDONUAPLUS #### [facility] [address] [place] [address] [place] Protein,Urine Trace High Negative [facility] Comment on above: Order Comment: Name Collection Type:: Clean-Voided Midstream Performed By: #### A DDONUAPLUS #### [facility] [address] [place] [address] [place] RBC,Urine Innumerable High 0-4 [facility] Comment on above: Order Comment: Name Collection Type:: Clean-Voided Midstream Performed By: #### A DDONUAPLUS #### [facility] [address] [place] [address] [place] Specificy [place],Urine 1.018 Normal 1.001-1.030 [facility] Comment on above: Order Comment: Name Collection Type:: Clean-Voided Midstream Performed By: #### A DDONUAPLUS #### [facility] [address] [place] [address] [place] Squamous Epithelial Cell,Urine None Seen Normal 0-2 [facility] Comment on above: Order Comment: Name Collection Type:: Clean-Voided Midstream Performed By: #### A DDONUAPLUS #### [facility] [address] Urobilinogen,Urine Normal Normal Normal [facility] Comment on above: Order Comment: Name Collection Type:: Clean-Voided Midstream Performed By: #### A DDONUAPLUS #### [facility] [address] WBC,Urine 1-2 Normal 0-4 [facility] Comment on above: Order Comment: Name Collection Type:: Clean-Voided Midstream Performed By: #### A DDONUAPLUS #### [facility] [address] Eosinophils Auto (Bld) [#/Vo l]Ordered By: Aracelis Robertson on 07-19-2023 Eosinophils (Bld) [#/Vol] 0.1 10*3/uL 0.0-0.45 [facility] Eosinophils/100 WBC Auto (Bl d)Ordered By: Aracelis Robertson on 07-19-2023 Eosinophils/100 WBC (Bld) 1.6 % . [facility] Erythrocyte distribution wid th Auto (RBC) [Ratio]Ordered By: Aracelis Robertson on 07-19-2023 Erythrocyte distribution width (RBC) [Ratio] 12.7 % 12.0-14.8 [facility] Globulin Calc (S) [Mass/Vol] Ordered By: Aracelis Robertson on 07-19-2023 Globulin (S) [Mass/Vol] 2.1 g/dL [facility] Glucose [Mass/volume] in Ser um or PlasmaOrdered By: Aracelis Robertson on 07-19-2023 Glucose [Mass/Vol] 105 mg/dL 70-100 [facility] Comment on above: ADA recommended refe rence rangeRandom Glucose Reference Range is dependent on time and content of last meal. Glucose of more than 200 mg/dL in a nonstressed, ambulatory subject supports the diagnosis of Diabetes Mellitus. Hematocrit Auto (Bld) [Volum e fraction]Ordered By: Aracelis Robertson on 07-19-2023 Hematocrit (Bld) [Volume fraction] 44.2 % 38.8-50.0 [facility] Hemoglobin [Mass/volume] in BloodOrdered By: Aracelis Robertson on 07-19-2023 Hemoglobin (Bld) [Mass/Vol] 15.2 g/dL 13.0-17.0 [facility] Hepatic Panelon 07-19-2023 Albumin [Mass/Vol] 4.8 g/dL Normal 3.5-5.7 [facility] Comment on above: Performed By: #### B MP, HEPATIC, CBC, LIPASE #### [facility] [address] Albumin/Globulin [Mass ratio] 2.3 {ratio} Normal [facility] Comment on above: Performed By: #### B MP, HEPATIC, CBC, LIPASE #### [facility] [address] ALP [Catalytic activity/Vol] 55 U/L Normal 34-104 [facility] Comment on above: Performed By: #### B MP, HEPATIC, CBC, LIPASE #### [facility] [address] [place] [id number] [place] ALT [Catalytic activity/Vol] 54 U/L High 7-52 [facility] Comment on above: Performed By: #### B MP, HEPATIC, CBC, LIPASE #### [facility] [address] [place] [id number] [place] AST [Catalytic activity/Vol] 21 U/L Normal 13-39 [facility] Comment on above: Performed By: #### B MP, HEPATIC, CBC, LIPASE #### [facility] [address] [place] [id number] [place] Bilirubin [Mass/Vol] 0.6 mg/dL Normal 0.3-1.0 [facility] Comment on above: Performed By: #### B MP, HEPATIC, CBC, LIPASE #### [facility] [address] [place] [id number] [place] Bilirubin,Indirect 0.5 mg/dL Normal [facility] Comment on above: Performed By: #### B MP, HEPATIC, CBC, LIPASE #### [facility] [address] Bilirubin.indirect [Mass/Vol] 0.10 mg/dL Normal 0.03-0.18 [facility] Comment on above: Performed By: #### B MP, HEPATIC, CBC, LIPASE #### [facility] [address] Globulin (S) [Mass/Vol] 2.1 g/dL Normal [facility] Comment on above: Performed By: #### B MP, HEPATIC, CBC, LIPASE #### [facility] [address] Protein [Mass/Vol] 6.9 g/dL Normal 6.4-8.9 [facility] Comment on above: Performed By: #### B MP, HEPATIC, CBC, LIPASE #### [facility] [address] Ketones Auto test strip (U) [Mass/Vol]Ordered By: PROVIDER TEMP on 07-19-2023 Ketones (U) [Mass/Vol] Negative Negative [facility] - UrinalysisOrder ed By: PROVIDER TEMP on 07-19-2023 Hyaline casts LM Ql (Urine sed) None seen [LPF] 0-8 [facility] Leukocytes [#/volume] correc michael for nucleated erythrocytes in Blood by Automated counOrdered By: Aracelis Robertson on 07-19-2023 WBC corrected for nucl RBC Auto (Bld) [#/Vol] 7.8 10*3/uL 4.1-10.5 [facility] Lipaseon 07-19-2023 Lipase [Catalytic activity/Vol] 43.0 U/L Normal 11.0-82.0 [facility] Comment on above: Result Comment: PERF ORMED BY: [place] [address] PATHOLOGIST [employer] ASSOCIATE DONTE WHITAKER M.D. Performed By: #### B MP, HEPATIC, CBC, LIPASE #### [facility] [address] Lipase [Enzymatic activity/v olume] in Serum or PlasmaOrdered By: Aracelis Robertson on 07-19-2023 Lipase [Catalytic activity/Vol] 43.0 U/L 11.0-82.0 [facility] Lymphocytes Auto (Bld) [#/Vo l]Ordered By: Aracelis Robertson on 07-19-2023 Lymphocytes (Bld) [#/Vol] 2.1 10*3/uL 1.00-4.8 [facility] Lymphocytes/100 WBC Auto (Bl d)Ordered By: Aracelis Robertson on 07-19-2023 Lymphocytes/100 WBC (Bld) 27.4 % . [facility] MCH Auto (RBC) [Entitic mass ]Ordered By: Aracelis Robertson on 07-19-2023 MCH (RBC) [Entitic mass] 31.7 pg 27.5-35.2 [facility] MCHC Auto (RBC) [Mass/Vol]Or dered By: Aracelis Robertson on 07-19-2023 MCHC (RBC) [Mass/Vol] 34.3 g/dL 32.5-35.6 [facility] MCV Auto (RBC) [Entitic vol] Ordered By: Aracelis Robertson on 07-19-2023 MCV (RBC) [Entitic vol] 92.3 fL 83.5-101 [facility] Monocyte distribution width [Entitic volume] in Blood by AutomatedOrdered By: Aracelis Robertson on 07-19-2023 Monocyte distribution width Auto (Bld) [Entitic vol] 16.55 % 0.00-20.00 [facility] Monocytes Auto (Bld) [#/Vol] Ordered By: Aracelis Robertson on 07-19-2023 Monocytes (Bld) [#/Vol] 0.6 10*3/uL 0.0-0.8 [facility] Monocytes/100 WBC Auto (Bld) Ordered By: Aracelis Robertson on 07-19-2023 Monocytes/100 WBC (Bld) 7.1 % . [facility] Neutrophils Auto (Bld) [#/Vo l]Ordered By: Aracelis Robertson on 07-19-2023 Neutrophils (Bld) [#/Vol] 4.9 10*3/uL 1.8-7.7 [facility] Neutrophils/100 WBC Auto (Bl d)Ordered By: Aracelis Robertson on 07-19-2023 Neutrophils/100 WBC (Bld) 63.1 % . [facility] Nitrite Test strip Ql (U)Ord ered By: PROVIDER TEMP on 07-19-2023 Nitrite Ql (U) Negative Negative [facility] No Panel InformationOrdered By: Aracelis Robertson on 07-19-2023 Estimated GFR (CKD-EPI) > 60.0 mL/Min [facility] Creatinine Clearance (Chem 115.43 [facility] Nucleated erythrocytes [Pres ence] in Blood by Automated countOrdered By: Aracelis Robertson on 07-19-2023 Nucleated RBC Auto Ql (Bld) 0.1 /100{WBC} 0-0.5 [facility] Platelet mean volume Auto (B ld) [Entitic vol]Ordered By: Aracelis Robertson on 07-19-2023 Platelet mean volume (Bld) [Entitic vol] 8.4 fL 6.6-10.1 [facility] Platelets Auto (Bld) [#/Vol] Ordered By: Aracelis Robertson on 07-19-2023 Platelets (Bld) [#/Vol] 244 10*3/uL 150-450 [facility] Potassium [Moles/volume] in Serum or PlasmaOrdered By: Aracelis Robertson on 07-19-2023 Potassium [Moles/Vol] 3.7 mmol/L 3.5-5.1 [facility] Protein Auto test strip (U) [Mass/Vol]Ordered By: PROVIDER TEMP on 07-19-2023 Protein (U) [Mass/Vol] Trace mg/dL Negative [facility] Protein [Mass/volume] in Ser um or PlasmaOrdered By: Aracelis Robertson on 07-19-2023 Protein [Mass/Vol] 6.9 g/dL 6.4-8.9 [facility] RBC Auto (Bld) [#/Vol]Ordere d By: Aracelis Robertson on 07-19-2023 RBC (Bld) [#/Vol] 4.79 10*6/uL 3.90-5.60 [facility] Serum or plasma albumin/glob ulin mass ratioOrdered By: Aracelis Robertson on 07-19-2023 Albumin/Globulin [Mass ratio] 2.3 {ratio} [facility] Serum or plasma anion gap de terminationOrdered By: Aracelis Robertson on 07-19-2023 Anion gap [Moles/Vol] 10.5 mmol/L 6.0-15.0 [facility] Serum or plasma non-glucuron idated bilirubin measurement (mass/volume)Ordered By: Aracelis Robertson on 07-19-2023 Bilirubin.indirect [Mass/Vol] 0.5 mg/dL [facility] Sodium [Moles/volume] in Ser um or PlasmaOrdered By: Aracelis Robertson on 07-19-2023 Sodium [Moles/Vol] 139 mmol/L 136-145 [facility] Specific gravity Auto test s trip (U) [Rel density]Ordered By: PROVIDER TEM on 07-19-2023 Specific gravity (U) [Rel density] 1.018 1.001-1.030 [facility] Squamous epithelial cells de tection in urine sediment by light microscopyOrdered By: PROVIDER TEM on 07-19-2023 Epithelial cells.squamous LM Ql (Urine sed) None seen [HPF] 0-2 [facility] Urea nitrogen [Mass/volume] in Serum or PlasmaOrdered By: Aracelis Robertson on 07-19-2023 Urea nitrogen [Mass/Vol] 12 mg/dL 7-25 [facility] Urine bacteria detection by automated methodOrdered By: PROVIDER TEM on 07-19-2023 Bacteria Auto Ql (U) None seen None Seen [facility] Urine clarity by refractomet ry automatedOrdered By: PROVIDER TEMP on 07-19-2023 Clarity Refractometry automated (U) Cloudy Clear [facility] Urine glucose measurement by automated test strip (mass/volume)Ordered By: PROVIDER TEM on 07-19-2023 Glucose Auto test strip (U) [Mass/Vol] Normal mg/dL Normal [facility] Urine hemoglobin detection b y automated test stripOrdered By: PROVIDER TEM on 07-19-2023 Hemoglobin Auto test strip Ql (U) 3+ Negative [facility] Urine leukocyte esterase det ection by automated test stripOrdered By: PROVIDER TEMP on 07-19-2023 Leukocyte esterase Auto test strip Ql (U) 1+ Negative [facility] Urobilinogen Auto test strip (U) [Mass/Vol]Ordered By: PROVIDER TEMP on 07-19-2023 Urobilinogen (U) [Mass/Vol] Normal mg/dL Normal [facility] WBC Auto (Bld) [#/Vol]Ordere d By: Aracelis Robertson on 07-19-2023 WBC (Bld) [#/Vol] 7.8 10*3/uL 4.1-10.5 [facility] pH Auto test strip (U)Ordere d By: PROVIDER TEMP on 07-19-2023 pH (U) 5.5 [pH] 5.0-9.0 [facility] Quick Strepon 07-07-2023 S. pyogenes Org specific cx Ql (Throat) Negative [employer] Other Quick Strep [facility] Other SARS-CoV-2 (COVID-19) RNA NA A+probe Ql (Resp)on 07-07-2023 SARS-CoV-2 (COVID-19) RNA DANILO+probe Ql (Unsp spec) Negative [facility] Other CARDIAC ELVIRA ADMITon 023 CK [Catalytic activity/Vol] 168 U/L Normal 39-308 [facility] Comment on above: Performed By: #### B HECTOR RODRIGUEZ #### [facility] [address] [place] [address] [address] Silvia De La Cruz CK.MB [Mass/Vol] 1.06 ng/mL Normal <=3.60 [facility] Comment on above: Performed By: #### HECTOR Segundo MP #### [facility] [address] [place] [address] [address] Silvia De La Cruz HSTROP 5.7 pg/mL Normal 4.0-76.1 [facility] Comment on above: Result Comment: CUT- OFF POINTS HAVE BEEN ESTABLISHED BASED ON THE FOURTH UNIVERSAL DEFINITIONS OF MYOCARDIAL INFARCTION. THE UPPER REFERENCE LIMIT (URL) OF TROPONIN, DEFINED THE 99TH PERCENTILE OF cTnI DISTRIBUTION IN A REFERENCE POPULATION, HAS BEEN CONFIRMED THE DECISION THRESHOLD FOR [place] DIAGNOSIS. Performed By: #### B HECTOR RODRIGUEZ #### [facility] [address] [place] [address] Dr. Silvia De La Cruz MATT 38 ng/mL Normal 16-96 [facility] Comment on above: Performed By: #### B HECTOR RODRIGUEZ #### [facility] [address] [place] [address] Dr. Silvia De La Cruz CBC AUTO DIFFon 11-04-2022 BASO # 0.1 103/ul Normal 0.0-0.1 [facility] Comment on above: Performed By: #### C BC #### [facility] [address] [place] [address] Dr. Silvia De La Cruz Basophils/100 WBC (Bld) 1.0 % Normal 0.2-2.0 [facility] Comment on above: Performed By: #### C BC #### [facility] [address] [place] [address] Dr. Silvia De La Cruz EO # 0.3 103/ul Normal 0.0-0.7 [facility] Comment on above: Performed By: #### C BC #### [facility] [address] [place] [address] Dr. Silvia De La Cruz Eosinophils/100 WBC (Bld) 6.9 % Normal 0.9-7.0 [facility] Comment on above: Performed By: #### C BC #### [facility] [address] [place] [address] Dr. Silvia De La Cruz Erythrocyte distribution width (RBC) [Ratio] 11.4 % Normal 11.0-15.0 [facility] Comment on above: Performed By: #### C BC #### [facility] [address] [place] [address] Dr. Silvia De La Cruz Hematocrit (Bld) [Volume fraction] 40.3 % Critically low 42.0-54.0 [facility] Comment on above: Performed By: #### C BC #### [facility] [address] [place] [address] Dr. Silvia De La Cruz Hemoglobin (Bld) [Mass/Vol] 13.6 g/dL Critically low 14.0-18.0 [facility] Comment on above: Performed By: #### C BC #### [facility] [address] [place] [address] Dr. Silvia De La Cruz IG # 0.00 10e3/ul Normal 0.00-0.03 [facility] Comment on above: Performed By: #### C BC #### [facility] [address] [place] [address] Dr. Silvia De La Cruz IG % 0.0 % Normal 0.0-0.5 [facility] Comment on above: Performed By: #### C BC #### [facility] [address] [place] [address] Dr. Silvia De La Cruz LYMPH # 2.4 103/ul Normal 1.2-3.8 [facility] Comment on above: Performed By: #### C BC #### [facility] [address] [place] [address] Dr. Silvia De La Cruz Lymphocytes/100 WBC (Bld) 49.1 % Normal 20.5-60.0 [facility] Comment on above: Performed By: #### C BC #### [facility] [address] [place] [address] Dr. Silvia De La Cruz MANUAL DIFF REQ NO Normal [facility] Comment on above: Performed By: #### C BC #### [facility] [address] [place] [address] Dr. Silvia De La Cruz MCH (RBC) [Entitic mass] 31.1 pg Normal 25.9-34.0 [facility] Comment on above: Performed By: #### C BC #### [facility] [address] [place] [address] Dr. Silvia De La Cruz MCHC (RBC) [Mass/Vol] 33.7 g/dL Normal 29.9-35.2 [facility] Comment on above: Performed By: #### C BC #### [facility] [address] [place] [address] Dr. Silvia De La Cruz MCV (RBC) [Entitic vol] 92.0 fL Normal 80.0-94.0 [facility] Comment on above: Performed By: #### C BC #### [facility] [address] [place] [address] Dr. Silvia De La Cruz MONO # 0.6 103/ul Normal 0.3-0.8 [facility] Comment on above: Performed By: #### C BC #### [facility] [address] [place] [address] Dr. Silvia De La Cruz Monocytes/100 WBC (Bld) 12.3 % Critically high 1.7-12. 0 [facility] Comment on above: Performed By: #### C BC #### [facility] [address] [place] [address] Dr. Silvia De La Cruz NEUT # 1.5 103/ul Normal 1.4-6.5 [facility] Comment on above: Performed By: #### C BC #### [facility] [address] [place] [address] Dr. Silvia De La Cruz Neutrophils/100 WBC (Bld) 30.7 % Critically low 43.0-75.0 [facility] Comment on above: Performed By: #### C BC #### [facility] [address] [place] [address] Dr. Silvia De La Cruz Platelet mean volume (Bld) [Entitic vol] 10.6 fL Normal 9.5-13.5 [facility] Comment on above: Performed By: #### C BC #### [facility] [address] [place] [address] Dr. Silvia De La Cruz PLT 259 103/ul Normal 150-450 [facility] Comment on above: Performed By: #### C BC #### [facility] [address] [place], [place] [id number] Dr. Silvia De La Cruz RBC 4.38 106/ul Critically low 4.70-6.10 [facility] Comment on above: Performed By: #### C BC #### [facility] [address] [place] [address] Dr. Silvia De La Cruz WBC 4.8 103/ul Normal 4.0-11.0 [facility] Comment on above: Performed By: #### C BC #### [facility] [address] [place] [address] Dr. Silvia De La Cruz D-DIMERon 11-04-2022 D-DIMER 0.36 mg/L FEU Normal <=0.59 [facility] Comment on above: Performed By: #### D DIM #### [facility] [address] [place] [address] Dr. Silvia De La Cruz D-DIMER COMMENTS SEE BELOW Normal [facility] Comment on above: Result Comment: Incr [...] hospitalization. Performed By: #### D DIM #### [facility] [address] [place] [address] Dr. Silvia De La Cruz PROF CHEM 8 (BAS METB)on Anion gap [Moles/Vol] 11.0 mmol/L Normal [facility] Comment on above: Performed By: #### B JUNO RODRIGUEZDM #### [facility] [address] [place] [address] Dr. Silvia De La Cruz Calcium [Mass/Vol] 8.9 mg/dL Normal 8.5-10.1 [facility] Comment on above: Performed By: #### B JENNIFER, CMADM #### [facility] [address] [place] [address] Dr. Silvia De La Cruz Chloride [Moles/Vol] 101 mmol/L Normal 98-107 [facility] Comment on above: Performed By: #### B JENNIFER, CMADM #### [facility] [address] [place] [address] Dr. Silvia De La Cruz CO2 [Moles/Vol] 29.1 mmol/L Normal 21.0-32.0 [facility] Comment on above: Performed By: #### B MP, CMADM #### [facility] [address] [address] [address] Silvia De La Cruz Creatinine [Mass/Vol] 0.77 mg/dL Normal 0.70-1.30 [facility] Comment on above: Performed By: #### B MP, CMADM #### [facility] [address] [address] [address] Silvia De La Cruz EGFR-AF LUXEMBOURGER >60 Normal >=60 [facility] Comment on above: Performed By: #### B MP, CMADM #### [facility] [address] [address] [address] Silvia De La Cruz EGFR-NON AF LUXEMBOURGER >60 Normal >=60 [facility] Comment on above: Performed By: #### B MP, CMADM #### [facility] [address] [address] [address] Silvia De La Cruz Glucose [Mass/Vol] 102 mg/dL Normal 74-106 [facility] Comment on above: Performed By: #### B JENNIFER, CMADM #### [facility] [address] [address] [address] Silvia De La Cruz Potassium [Moles/Vol] 4.1 mmol/L Normal 3.5-5.1 [facility] Comment on above: Performed By: #### B MP, CMADM #### [facility] [address] [address] [address] Silvia De La Cruz Sodium [Moles/Vol] 137 mmol/L Normal 136-145 [facility] Comment on above: Performed By: #### B MP, CMADM #### [facility] [address] [address] [address] Silvia De La Cruz Urea nitrogen [Mass/Vol] 16.0 mg/dL Normal 7.0-18.0 [facility] Comment on above: Performed By: #### B MP, CMADM #### [facility] [address] [address] [address] Silvia De La Cruz Urea nitrogen/Creatinine [Mass ratio] 20.8 mg/mg Normal [facility] Comment on above: Performed By: #### B HECTOR RODRIGUEZ #### [facility] [address] [address] [address] Silvia De La Cruz XR CHEST [...] by: LEONA JACK Date: 2022-11-04 00:16 Normal [facility] UR Drugs of Abuse Panelon Drug Screen Comment see below Normal [facility] Comment on above: Result Comment: This method is a screening test to detect only these drug classes as part of a medical workup. Confirmatory testing by another method should be ordered if clinically indicated. Performed By: #### U DRGS #### [facility] [address] [place] [address] UR Amphetamines Screen Negative Normal Negative < [facility] Comment on above: Performed By: #### U DRGS #### [facility] [address] [place] [address] UR Barbiturates Screen Negative Normal Negative < [facility] Comment on above: Performed By: #### U DRGS #### [facility] [address] [place] [address] UR Benzo Screen Positive Abnormal Negative < [facility] Comment on above: Performed By: #### U DRGS #### [facility] [address] [place] [address] UR Cannabinoids Screen Positive Abnormal Negative < [facility] Comment on above: Performed By: #### U DRGS #### [facility] [address] [place] [address] UR Cocaine Screen Negative Normal Negative < [facility] Comment on above: Performed By: #### U DRGS #### [facility] [address] [place] [address] UR Fentanyl Screen Positive Abnormal Negative < [facility] Comment on above: Performed By: #### U DRGS #### [facility] [address] [place] [address] UR Methadone Screen Negative Normal Negative < [facility] Comment on above: Performed By: #### U DRGS #### [facility] [address] [place] [address] UR Opiates Screen Negative Normal Negative < [facility] Comment on above: Performed By: #### U DRGS #### [facility] [address] [place] [address] UR Oxycodone Screen Negative Normal Negative < [facility] Comment on above: Performed By: #### U DRGS #### [facility] [address] [place] [address] UR PCP Screen Negative Normal Negative < [facility] Comment on above: Performed By: #### U DRGS #### [facility] [address] [place] [address] UR Propoxyphene Screen Negative Normal Negative < [facility] Comment on above: Performed By: #### U DRGS #### [facility] [address] [place] [address] Urine Drug Screenon 08-21-20 22 Amphetamine Screen, Urine Negative Negative <1000 ng/mL [facility] Barbiturate Screen, Ur Negative Negat kira < 200 ng/mL [facility] [employer] Benzodiazepine Screen, Urine Positive Abnormal Negative < 200 ng/mL [facility] [employer] Cannabinoid Scrn, Ur Positive Abnormal Negativ e < 50 ng/mL [facility] [employer] Cocaine Metabolite Screen, Urine Negative Negative < 300 ng/mL [facility] [employer] Drug Screen Comment: see below [facility] [employer] Comment on above: This method is a scr eening test to detect only these drug classes as part of a medical workup. Confirmatory testing by another method should be ordered if clinically indicated. FENTANYL SCREEN, URINE Positive Abnormal Negat kira < 50 ng/mL [facility] Interpretation and review of laboratory results Abnormal [facility] Methadone Screen, Urine Negative Nega tive <300 ng/mL [facility] Opiate Scrn, Ur Negative Negative < 300 ng/mL [facility] Oxycodone Urine Negative Negative <10 0 ng/mL [facility] PCP Screen, Urine Negative Negative < 25 ng/mL [facility] Propoxyphene Scrn, Ur Negative Negati ve <300 ng/mL [facility] POC Influenza A/B and SARS A ntigen manually resultedOrdered By: Skip Sarmiento on 08-02-2022 FLUAV Ag IA.rapid Ql (Nph) Negative Negative [facility] FLUBV Ag IA.rapid Ql (Nph) Negative Negative [facility] INTERNAL CONTROLS Acceptable [facility] SARS-CoV+SARS-CoV-2 (COVID-19) Ag IA.rapid Ql (Resp) Negative Presumptive Negative [facility] CARDIAC ELVIRA ADMITon 022 CK [Catalytic activity/Vol] 181 U/L Normal 39-308 [facility] Comment on above: Performed By: #### B HECTOR RODRIGUEZ ####[facility] [id number] [place], [place] [address]Mb. Silvia De La Cruz CK.MB [Mass/Vol] 1.22 ng/mL Normal <=3.60 [facility] Comment on above: Performed By: #### B HECTOR RODRIGUEZ ####[facility] [id number] [place], [place] [address]Vb. Silvia De La Cruz HSTROP 5.0 pg/mL Normal 4.0-76.1 [facility] Comment on above: Result Comment: CUT- OFF POINTS HAVE BEEN ESTABLISHED BASED ON THE FOURTH UNIVERSAL DEFINITIONS OF MYOCARDIAL INFARCTION. THE UPPER REFERENCE LIMIT (URL) OF TROPONIN, DEFINED THE 99TH PERCENTILE OF cTnI DISTRIBUTION IN A REFERENCE POPULATION, HAS BEEN CONFIRMED THE DECISION THRESHOLD FOR [place] DIAGNOSIS. Performed By: #### B HECTOR RODRIGUEZ ####[facility] [id number] [place], [place] [address]ZtFabrice De La Cruz MATT 44 ng/mL Normal 16-96 [facility] Comment on above: Performed By: #### B JUNO RODRIGUEZDM ####[facility] [id number] [place], [place] [address]CnDr. Silvia De La Cruz CBC AUTO DIFFon 03-23-2022 BASO # 0.1 103/ul Normal 0.0-0.1 [facility] Comment on above: Performed By: #### C BC #### [facility] [address] [address] [address] Silvia De La Cruz Basophils/100 WBC (Bld) 0.9 % Normal 0.2-2.0 [facility] Comment on above: Performed By: #### C BC #### [facility] [address] [address] [address] Silvia De La Cruz EO # 0.3 103/ul Normal 0.0-0.7 [facility] Comment on above: Performed By: #### C BC #### [facility] [address] [address] [address] Silvia De La Cruz Eosinophils/100 WBC (Bld) 3.9 % Normal 0.9-7.0 [facility] Comment on above: Performed By: #### C BC #### [facility] [address] [address] [address] Silvia De La Cruz Erythrocyte distribution width (RBC) [Ratio] 11.3 % Normal 11.0-15.0 [facility] Comment on above: Performed By: #### C BC #### [facility] [address] [address] [address] Silvia De La Cruz Hematocrit (Bld) [Volume fraction] 40.8 % Critically low 42.0-54.0 [facility] Comment on above: Performed By: #### C BC #### [facility] [address] [address] [address] Silvia De La Cruz Hemoglobin (Bld) [Mass/Vol] 14.1 g/dL Normal 14.0-18.0 [facility] Comment on above: Performed By: #### C BC #### [facility] [address] [place] [address] Dr. Silvia De La Cruz IG # 0.01 10e3/ul Normal 0.00-0.03 [facility] Comment on above: Performed By: #### C BC #### [facility] [address] [place] [address] Dr. Silvia De La Cruz IG % 0.1 % Normal 0.0-0.5 [facility] Comment on above: Performed By: #### C BC #### [facility] [address] [place] [address] Dr. Silvia De La Cruz LYMPH # 3.1 103/ul Normal 1.2-3.8 [facility] Comment on above: Performed By: #### C BC #### [facility] [address] [place] [address] Dr. Silvia De La Cruz Lymphocytes/100 WBC (Bld) 45.7 % Normal 20.5-60.0 [facility] Comment on above: Performed By: #### C BC #### [facility] [address] [place] [address] Dr. Silvia De La Cruz MANUAL DIFF REQ NO Normal [facility] Comment on above: Performed By: #### C BC #### [facility] [address] [place] [address] Dr. Silvia De La Cruz MCH (RBC) [Entitic mass] 31.7 pg Normal 25.9-34.0 [facility] Comment on above: Performed By: #### C BC #### [facility] [address] [place] [address] Dr. Silvia De La Cruz MCHC (RBC) [Mass/Vol] 34.6 g/dL Normal 29.9-35.2 [facility] Comment on above: Performed By: #### C BC #### [facility] [address] [place] [address] Dr. Silvia De La Cruz MCV (RBC) [Entitic vol] 91.7 fL Normal 80.0-94.0 [facility] Comment on above: Performed By: #### C BC #### [facility] [address] [address] [address] Silvia De La Cruz MONO # 0.6 103/ul Normal 0.3-0.8 [facility] Comment on above: Performed By: #### C BC #### [facility] [address] [address] [address] Silvia De La Cruz Monocytes/100 WBC (Bld) 9.6 % Normal 1.7-12.0 [facility] Comment on above: Performed By: #### C BC #### [facility] [address] [place] [address] Dr. Silvia De La Cruz NEUT # 2.7 103/ul Normal 1.4-6.5 [facility] Comment on above: Performed By: #### C BC #### [facility] [address] [place] [address] Dr. Silvia De La Cruz Neutrophils/100 WBC (Bld) 39.8 % Critically low 43.0-75.0 [facility] Comment on above: Performed By: #### C BC #### [facility] [address] [place] [address] Dr. Silvia De La Cruz Platelet mean volume (Bld) [Entitic vol] 10.8 fL Normal 9.5-13.5 [facility] Comment on above: Performed By: #### C BC #### [facility] [address] [place] [address] Dr. Silvia De La Cruz PLT 259 103/ul Normal 150-450 [facility] Comment on above: Performed By: #### C BC #### [facility] [address] [place] [address] Dr. Silvia De La Cruz RBC 4.45 106/ul Critically low 4.70-6.10 [facility] Comment on above: Performed By: #### C BC #### [facility] [address] [place] [address] Dr. Silvia De La Cruz WBC 6.7 103/ul Normal 4.0-11.0 [facility] Comment on above: Performed By: #### C BC #### [facility] [address] [place] [address] Dr. Silvia De La Cruz Covid-19 PCR (CVDTB)on 02-23 SARS-CoV-2 (COVID-19) RNA DANILO+probe Ql (Unsp spec) Not detected Normal NOT DETECTED [facility] Comment on above: Result Comment: [...] for this test is supported by the [employer] of [employer] and Human Service's declaration that [...] used). Performed By: #### C VDTBH #### [facility] [address] [place] [address] Dr. Silvia De La Cruz INFLUENZA A AND B AGon 03-23 INFLUANEGH SEE BELOW Normal [facility] Comment on above: Result Comment: Nega tive for Flu A protein angiten. Infection due to Flu A cannot be ruled out. Flu A angiten in the sample may be below the detection limit of the test. Performed By: #### I NFLUAB #### [facility] [address] [place] [address] Dr. Silvia De La Cruz INFLUBNEG SEE BELOW Normal [facility] Comment on above: Result Comment: Nega tive for Flu B protein antigen. Infection due to Flu B cannot be ruled out. Flu B antigen in the sample may be below the detection limit of the test. Performed By: #### I NFLUAB #### [facility] [address] [place] [address] Dr. Silvia De La Cruz INFLUENZA A AG Negative Normal NEGATIVE SEE COMMENT [facility] Comment on above: Performed By: #### I NFLUAB #### [facility] [address] [address] [address] Silvia De La Cruz INFLUENZA B AG Negative Normal NEGATIVE SEE COMMENT [facility] Comment on above: Performed By: #### I NFLUAB #### [facility] [address] [address] [address] Silvia De La Cruz INTERNAL CONTROLS Within Normal Limits Normal Within Normal Limits [facility] Comment on above: Performed By: #### I NFLUAB #### [facility] [address] [address] [address] Silvia De La Cruz PROF CHEM 8 (BAS METB)on Anion gap [Moles/Vol] 10.7 mmol/L Normal [facility] Comment on above: Performed By: #### B JENNIFER, CMADM ####[facility] [id number] [address]DrFabrice De La Cruz Calcium [Mass/Vol] 9.1 mg/dL Normal 8.5-10.1 [facility] Comment on above: Performed By: #### B JENNIFER, CMADM ####[facility] [id number] [address]DrFabrice De La Cruz Chloride [Moles/Vol] 105 mmol/L Normal 98-107 [facility] Comment on above: Performed By: #### B JENNIFER, CMADM ####[facility] [id number] [address]DrFabrice De La Cruz CO2 [Moles/Vol] 28.0 mmol/L Normal 21.0-32.0 [facility] Comment on above: Performed By: #### B JENNIFER, CMADM ####[facility] [id number] [address]DrFabrice De La Cruz Creatinine [Mass/Vol] 0.98 mg/dL Normal 0.70-1.30 [facility] Comment on above: Performed By: #### B JENNIFER, CMADM ####[facility] [id number] [id number] De La Cruz EGFR-AF LUXEMBOURGER >60 Normal >=60 [facility] Comment on above: Performed By: #### B JENNIFER, CMADM ####[facility] [id number] [address]Dr. Silvia De La Cruz EGFR-NON AF LUXEMBOURGER >60 Normal >=60 [facility] Comment on above: Performed By: #### B JENNIFER, CMADM ####[facility] [id number] [place] [id number]. Silvia De La Cruz Glucose [Mass/Vol] 84 mg/dL Normal 74-106 [facility] Comment on above: Performed By: #### B JENNIFER, CMADM ####[facility] [id number] [place] [address] [address]Dr. Silvia De La Cruz Potassium [Moles/Vol] 3.7 mmol/L Normal 3.5-5.1 [facility] Comment on above: Performed By: #### B JENNIFER, CMADM ####[facility] [id number] [place], [place] [address]Dr. Silvia De La Cruz Sodium [Moles/Vol] 140 mmol/L Normal 136-145 [facility] Comment on above: Performed By: #### B JENNIFER, CMADM ####[facility] [id number] [place] [address]Dr. Silvia De La Cruz Urea nitrogen [Mass/Vol] 14.0 mg/dL Normal 7.0-18.0 [facility] Comment on above: Performed By: #### B JENNIFER, CMADM ####[facility] [id number] [place], [place] [address]Dr. Silvia De La Cruz Urea nitrogen/Creatinine [Mass ratio] 14.3 mg/mg Normal [facility] Comment on above: Performed By: #### B JENNIFER, CMADM ####[facility] [id number] [place], [place] [address]Dr. Silvia Jono Cov[facility]-19 [facility]on [facility]-25 SARS-CoV-2 (COVID-19) RNA DANILO+probe Ql (Unsp spec) Not detected Normal NOT DETECTED [facility] Comment on above: Result Comment: This test is not yet approved or cleared by the [place] FDA. When there are no FDA-approved or cleared tests available, and other criteria are met, FDA can make tests available under an emergency access mechanism called an Emergency Use Authorization (EUA). The EUA for this test is supported by the [place] of Health and Human Service's (HHS's) declaration [...] consistent with SARS-CoV-2. Performed By: #### C [facility] #### [facility] Laboratory [address] [place] [address] Dr. Silvia De La Cruz Vital Signs Date Time Vital Sign Value Performing Clinician Facility 01-15-2024 22:15-0400 Diastolic blood pressure 75 mm[Hg] RAQUEL Stern Work Phone: [facility] 01-15-2024 22:15-0400 Heart rate 86 /min RAQUEL Stern Work Phone: [facility] 01-15-2024 22:15-0400 Respiratory rate 19 /min RAQUEL Stern Work Phone: [facility] 01-15-2024 22:15-0400 SaO2% (BldA) [Mass fraction] 97 % RAQUEL Stern Work Phone: [facility] 01-15-2024 22:15-0400 Systolic blood pressure 129 mm[Hg] RAQUEL Stern Work Phone: [facility] 01-15-2024 19:45-0400 Body height 175.26 cm RAQUEL Stern Work Phone: [facility] 01-15-2024 19:45-0400 Body temperature 97.9 [degF] RAQUEL Pham Jarred Work Phone: [facility] 01-15-2024 19:45-0400 Body weight 94.5 kg RAQUEL Greenfieldchantelleyohan Work Phone: [facility] 01-13-2024 11:38-0400 Body height 175.26 cm [facility] 01-13-2024 11:38-0400 Body mass index (BMI) [Ratio] 30.1 kg/m2 [facility] 01-13-2024 11:38-0400 Body temperature 98.9 [degF] [facility] 01-13-2024 11:38-0400 Body weight 92.53 kg [facility] 01-13-2024 11:38-0400 Diastolic blood pressure 66 mm[Hg] [facility] 01-13-2024 11:38-0400 Heart rate 68 /min [facility] 01-13-2024 11:38-0400 Respiratory rate 18 /min [facility] 01-13-2024 11:38-0400 SaO2% (BldA) [Mass fraction] 97 % [facility] 01-13-2024 11:38-0400 Systolic blood pressure 116 mm[Hg] [facility] 12-07-2023 15:57-0500 Body height 175.26 cm [facility] 12-07-2023 15:57-0500 Body mass index (BMI) [Ratio] 30.2 kg/m2 [facility] 12-07-2023 15:57-0500 Body weight 92.98 kg [facility] 12-07-2023 15:57-0500 Diastolic blood pressure 74 mm[Hg] [facility] 12-07-2023 15:57-0500 Heart rate 80 /min [facility] 12-07-2023 15:57-0500 SaO2% (BldA) [Mass fraction] 98 % [facility] 12-07-2023 15:57-0500 Systolic blood pressure 124 mm[Hg] [facility] 11-23-2023 13:00-0500 Body height 175.26 cm Vero Greenfieldgera Other [facility] 11-23-2023 13:00-0500 Body mass index (BMI) [Ratio] 30.57 kg/m2 Vero Greenfieldgera Other [employer] Other 11-23-2023 13:00-0500 Body temperature 98.2 [degF] Vero Jarred Other [employer] Other 11-23-2023 13:00-0500 Body weight 93.9 kg Vero Greenfieldgera Other [employer] Other 11-23-2023 13:00-0500 Body weight 93.89 kg [facility] 11-23-2023 13:00-0500 Diastolic blood pressure 72 mm[Hg] Vero Jarred Other [facility] 11-23-2023 13:00-0500 SaO2% (BldA) [Mass fraction] 96 % Vero Jarred Other [employer] Other 11-23-2023 13:00-0500 Systolic blood pressure 110 mm[Hg] Vero Jarred Other [facility] 11-21-2023 14:40-0500 Body height 175.26 cm Pura Kay Other [facility] 11-21-2023 14:40-0500 Body mass index (BMI) [Ratio] 30.12 kg/m2 Pura Kay Other [employer] Other 11-21-2023 14:40-0500 Body temperature 101.9 [degF] Pura Kay Other [facility] ? Other 11-21-2023 14:40-0500 Body weight 92.53 kg Pura Kay Other [facility] 11-21-2023 14:40-0500 Respiratory rate 18 /min Pura Kay Other [employer] Other 11-21-2023 14:40-0500 SaO2% (BldA) [Mass fraction] 96 % Pura Kay Other [employer] Other 11-04-2023 11:00-0500 Body height 175.26 cm Joelle Vailoroge Other [facility] 11-04-2023 11:00-0500 Body mass index (BMI) [Ratio] 29.5 kg/m2 Joelle Carlos Other [facility] ? Other 11-04-2023 11:00-0500 Body weight 90.63 kg Joelle Carlos Other [facility] [employer] ? Other 11-04-2023 11:00-0500 Body weight 90.62 kg [facility] 11-04-2023 11:00-0500 Diastolic blood pressure 86 mm[Hg] Joelle Carlos Other [facility] 11-04-2023 11:00-0500 SaO2% (BldA) [Mass fraction] 98 % Joelle Carlos Other [facility] ? Other 11-04-2023 11:00-0500 Systolic blood pressure 128 mm[Hg] Joelle Carlos Other [facility] 09-27-2023 11:19-0500 Blood Pressure Location VERO TOLLIVER [facility] 09-27-2023 11:19-0500 Diastolic blood pressure 87 mm[Hg] VERO TOLLIVER [facility] 09-27-2023 11:19-0500 Heart rate 65 /min VERO TOLLIVER [facility] 09-27-2023 11:19-0500 Respiratory rate 16 /min VERO TOLLIVER [facility] 09-27-2023 11:19-0500 Systolic blood pressure 120 mm[Hg] VERO MILTONRY [facility] 09-19-2023 08:30-0500 Body height 175.26 cm Vero Stern Other [facility] 09-19-2023 08:30-0500 Body mass index (BMI) [Ratio] 29.53 kg/m2 Vero Stern Other [facility] ? Other 09-19-2023 08:30-0500 Body weight 90.72 kg Vero Stern Other [facility] ? Other 09-19-2023 08:30-0500 Body weight 90.71 kg [facility] 09-19-2023 08:30-0500 Diastolic blood pressure 82 mm[Hg] Vero Stern Other [facility] 09-19-2023 08:30-0500 SaO2% (BldA) [Mass fraction] 98 % Vero Stern Other [facility] ? Other 09-19-2023 08:30-0500 Systolic blood pressure 122 mm[Hg] Vero Stern Other [facility] 09-10-2023 11:50-0500 Body height 175.26 cm [facility] 09-10-2023 11:50-0500 Body weight 88.54 kg [facility] 08-08-2023 17:26-0400 Diastolic blood pressure 84 mm[Hg] PHYSICIAN NO [facility] 08-08-2023 17:26-0400 Heart rate 52 /min PHYSICIAN NO [facility] 08-08-2023 17:26-0400 Respiratory rate 16 /min PHYSICIAN NO [facility] 08-08-2023 17:26-0400 SaO2% (BldA) [Mass fraction] 98 % PHYSICIAN NO [facility] 08-08-2023 17:26-0400 Systolic blood pressure 122 mm[Hg] PHYSICIAN NO [facility] 08-08-2023 15:31-0400 Body height 175.26 cm PHYSICIAN NO [facility] 08-08-2023 15:31-0400 Body mass index (BMI) [Ratio] 28 kg/m2 PHYSICIAN NO [facility] 08-08-2023 15:31-0400 Body weight 86.18 kg PHYSICIAN NO [facility] 08-08-2023 13:55-0400 Body temperature 98.1 [degF] PHYSICIAN NO [facility] 07-25-2023 19:10-0400 Diastolic blood pressure 90 mm[Hg] PHYSICIAN NO [facility] 07-25-2023 19:10-0400 Heart rate 61 /min PHYSICIAN NO [facility] 07-25-2023 19:10-0400 Respiratory rate 16 /min PHYSICIAN NO [facility] 07-25-2023 19:10-0400 SaO2% (BldA) [Mass fraction] 96 % PHYSICIAN NO [facility] 07-25-2023 19:10-0400 Systolic blood pressure 127 mm[Hg] PHYSICIAN NO [facility] 07-25-2023 15:19-0400 Body height 175.26 cm PHYSICIAN NO [facility] 07-25-2023 15:19-0400 Body mass index (BMI) [Ratio] 28 kg/m2 PHYSICIAN NO [facility] 07-25-2023 15:19-0400 Body weight 86.18 kg PHYSICIAN NO [facility] 07-25-2023 15:08-0400 Body temperature 98.2 [degF] PHYSICIAN NO [facility] 07-25-2023 09:06-0400 Blood Pressure Location [facility] [facility] 07-25-2023 09:06-0400 Diastolic blood pressure 82 mm[Hg] [employer] [facility] 07-25-2023 09:06-0400 Heart rate 80 /min [employer] [facility] 07-25-2023 09:06-0400 Systolic blood pressure 134 mm[Hg] [employer] [facility] 07-19-2023 20:50-0400 Diastolic blood pressure 93 mm[Hg] PHYSICIAN NO [facility] 07-19-2023 20:50-0400 Heart rate 66 /min PHYSICIAN NO [facility] 07-19-2023 20:50-0400 Respiratory rate 20 /min PHYSICIAN NO [facility] 07-19-2023 20:50-0400 SaO2% (BldA) [Mass fraction] 99 % PHYSICIAN NO [facility] 07-19-2023 20:50-0400 Systolic blood pressure 138 mm[Hg] PHYSICIAN NO [facility] 07-19-2023 18:37-0400 Body height 175.26 cm PHYSICIAN NO [facility] 07-19-2023 18:37-0400 Body temperature 97.5 [degF] PHYSICIAN NO [facility] 07-19-2023 18:37-0400 Body weight 86.18 kg PHYSICIAN NO [facility] 07-07-2023 13:00-0400 Body height 175.26 cm La Nena Travis Other [employer] Other 07-07-2023 13:00-0400 Body mass index (BMI) [Ratio] 28.26 kg/m2 La Nena Travis Other [employer] Other 07-07-2023 13:00-0400 Body temperature 100.1 [degF] La Nena Travis Other [employer] Other 07-07-2023 13:00-0400 Body weight 86.82 kg La Nena Travis Other [employer] Other 07-07-2023 13:00-0400 Diastolic blood pressure 86 mm[Hg] La Nena Travis Other [employer] Other 07-07-2023 13:00-0400 Respiratory rate 18 /min La Nena Travis Other [employer] Other 07-07-2023 13:00-0400 SaO2% (BldA) [Mass fraction] 98 % La Nena Travis Other [employer] Other 07-07-2023 13:00-0400 Systolic blood pressure 128 mm[Hg] La Nena Travis Other [employer] Other 05-23-2023 15:50-0400 Body height 175.26 cm Claire Rothman Other [employer] Other 05-23-2023 15:50-0400 Body mass index (BMI) [Ratio] 27.76 kg/m2 Claire oRthman Other [employer] Other 05-23-2023 15:50-0400 Body temperature 99 [degF] Claire Gantley Other [employer] Other 05-23-2023 15:50-0400 Body weight 85.28 kg Claire Lorna Other [employer] Other 05-23-2023 15:50-0400 Diastolic blood pressure 82 mm[Hg] Claire Lorna Other [employer] Other 05-23-2023 15:50-0400 Respiratory rate 18 /min Claire Lorna Other [employer] Other 05-23-2023 15:50-0400 SaO2% (BldA) [Mass fraction] 99 % Claire Gantley Other [employer] Other 05-23-2023 15:50-0400 Systolic blood pressure 121 mm[Hg] Claire Lorna Other [employer] Other 08-21-2022 04:22-0400 Body height 172.7 cm Reece Briscoe MD Work Phone: [employer] 08-21-2022 04:22-0400 Body mass index (BMI) [Ratio] 28.89 kg/m2 Reece Briscoe MD Work Phone: [employer] 08-21-2022 04:22-0400 Body temperature 98.6 [degF] Reece Briscoe MD Work Phone: [employer] 08-21-2022 04:22-0400 Body weight 86.18 kg Reece Briscoe MD Work Phone: [employer] 08-21-2022 04:22-0400 Diastolic blood pressure 79 mm[Hg] Reece Briscoe MD Work Phone: [facility] [employer] 08-21-2022 04:22-0400 Heart rate 128 /min Reece Briscoe MD Work Phone: [facility] 08-21-2022 04:22-0400 Respiratory rate 18 /min Reece Briscoe MD Work Phone: [facility] 08-21-2022 04:22-0400 SaO2% (BldA) [Mass fraction] 96 % Reece Briscoe MD Work Phone: [facility] 08-21-2022 04:22-0400 Systolic blood pressure 154 mm[Hg] Reece Briscoe MD Work Phone: [facility] 08-02-2022 15:01-0400 Body temperature 98.71 [degF] Kasia Urbina [employer]EL[employer] Work Phone: [facility] [email or web address] 08-02-2022 15:01-0400 Diastolic blood pressure 92 mm[Hg] Kasia Urbina [employer]ELOPER Work Phone: [facility] [email or web address] 08-02-2022 15:01-0400 Heart rate 91 /min Kasia Urbina [employer] DEVELOPER Work Phone: [facility] [email or web address] 08-02-2022 15:01-0400 Respiratory rate 18 /min Kasia Urbina [employer] DEVELOPER Work Phone: [facility] [email or web address] 08-02-2022 15:01-0400 SaO2% (BldA) [Mass fraction] 99 % Kasia Urbina [employer]ELOPER Work Phone: [facility] [email or web address] 08-02-2022 15:01-0400 Systolic blood pressure 157 mm[Hg] Kasia Urbina [employer] DEVELOPER Work Phone: [facility] Encounters Encounter Date Encounter Type Care Provider Facility Start: 01-16-2024 End: 01-16-2024 ambulatory RAQUEL Stern Work Phone: [facility] Work Phone: Start: 01-16-2024 End: 01-16-2024 Patient encounter procedure RAQUEL Quezadanifer Jarred Work Phone: [facility] Work Phone: Start: 01-15-2024 End: 01-16-2024 Emergency department patient visit Sang Lovett Facility:[facility] Start: 01-15-2024 End: 01-15-2024 Emergency department patient visit RAQUEL Pham Jarred Work Phone: [facility] Work Phone: Start: 01-13-2024 End: 01-13-2024 ambulatory [facility] Work Phone: Start: 01-13-2024 End: 01-13-2024 Patient encounter procedure [facility] Work Phone: Start: 12-07-2023 End: 12-07-2023 ambulatory [facility] Work Phone: Start: 12-07-2023 End: 12-07-2023 Patient encounter procedure [facility] Work Phone: Start: 11-23-2023 End: 11-23-2023 ambulatory Vero Stern Other [facility] ? Other Start: 11-23-2023 Office outpatient vi sit 15 minutes Vero Stern [facility] Start: 11-23-2023 End: 11-23-2023 Patient encounter procedure [facility]- Start: 11-21-2023 End: 11-21-2023 ambulatory Pura Kay Other [facility] Other Start: 11-21-2023 Office outpatient vi sit 15 minutes Pura Kay [facility] Start: 11-21-2023 Telephone encounter Vero Rai her [facility] Start: 11-21-2023 End: 11-21-2023 Patient encounter procedure [facility]- Start: 11-07-2023 End: 11-07-2023 ambulatory Vero Jarred Other [employer] Other Start: 11-07-2023 Telephone encounter Vero Rai her [facility] Start: 11-04-2023 End: 11-04-2023 ambulatory Joelle Carlos Other [employer] Other Start: 11-04-2023 Office outpatient ne w 45 minutes Joelle Carlos [facility] Start: 11-04-2023 End: 11-04-2023 Patient encounter procedure [facility] Work Phone: Start: 10-31-2023 End: 10-31-2023 ambulatory Vero Jarred Other [employer] Other Start: 10-31-2023 Telephone encounter Vero Rai her [facility] Start: 10-18-2023 End: 10-18-2023 ambulatory Vero Jarred Other [employer] Other Start: 10-18-2023 Telephone encounter Vero Rai her [facility] Start: 09-27-2023 End: 09-28-2023 ambulatory VERO TOLLIVER Facility:[facility] [place] Start: 09-27-2023 End: 09-27-2023 Patient encounter procedure VERO TOLLIVER [facility] Silvia Start: 09-19-2023 End: 09-19-2023 ambulatory Vero Stern Other [employer] Other Start: 09-19-2023 Office outpatient ne w 30 minutes Vero Stern [facility] Start: 09-19-2023 End: 09-19-2023 Patient encounter procedure [facility] Work Phone: Start: 09-10-2023 End: 09-10-2023 Patient encounter procedure [facility] Work Phone: Start: 08-12-2023 End: 08-13-2023 ambulatory Mina BAEZ Facility:[facility] [place] Start: 08-12-2023 End: 08-12-2023 Patient encounter procedure Mina BAEZ [facility] Start: 08-08-2023 End: 08-08-2023 ambulatory Mina Baez Facility:[facility] Start: 08-08-2023 End: 08-08-2023 Admission to same day surgery center PHYSICIAN NO [facility] [place] [facility] [place] Start: 08-08-2023 End: 08-09-2023 ambulatory PHYSICIAN NO [facility] Work Phone: Start: 07-25-2023 End: 07-25-2023 ambulatory PHYSICIAN NO FAMILY Facility:[facility] Start: 07-25-2023 End: 07-25-2023 Admission to same day surgery center PHYSICIAN NO [facility] [place] Start: 07-25-2023 End: 07-25-2023 ambulatory PHYSICIAN NO [facility] Work Phone: Start: 07-25-2023 End: 07-26-2023 ambulatory Mina BAEZ Facility:CD:[id number] Start: 07-25-2023 End: 07-26-2023 ambulatory Mina BAEZ Facility:[facility] [place] Start: 07-25-2023 End: 07-25-2023 ambulatory PHYSICIAN NO FAMILY Facility:[facility] Start: 07-25-2023 End: 07-25-2023 Patient encounter procedure Mina BAEZ [facility] [place] Start: 07-25-2023 End: 07-25-2023 ambulatory PHYSICIAN NO [facility] Work Phone: Start: 07-25-2023 End: 07-25-2023 Patient encounter procedure PHYSICIAN NO [facility] [place] Work Phone: Start: 07-19-2023 End: 07-19-2023 Emergency department patient visit PHYSICIAN NO [facility] Facility:[facility] Start: 07-19-2023 End: 07-19-2023 Emergency department patient visit PHYSICIAN NO [facility] Work Phone: Start: 07-07-2023 End: 07-07-2023 ambulatory La Nena Travis Other [facility] Other Start: 07-07-2023 Office outpatient vi sit 25 minutes La Nena Travis [facility] Start: 05-23-2023 End: 05-23-2023 ambulatory Claire Rothman Other [employer] Other Start: 05-23-2023 Office outpatient vi sit 15 minutes Claire Rothman [facility] Start: 11-04-2022 End: 11-04-2022 ambulatory BEBETO PEREZ Facility: Start: 08-21-2022 End: 08-21-2022 Emergency department patient visit REECE BRISCOE [facility] Start: 08-21-2022 End: 08-21-2022 Emergency department patient visit Reece Briscoe MD Work Phone: [facility] Comment on above: Accidental drug over dose, initial encounter (Primary Dx) Start: 08-02-2022 End: 08-02-2022 Office outpatient visit 15 minutes Kasia Urbina [employer] DEVELOPER Work Phone: [facility] [place] [facility] Comment on above: Viral infection, uns pecified (Primary Dx); Screening for STD (sexually transmitted disease); Anxiety about health Start: 03-23-2022 End: 03-23-2022 ambulatory BEBETO PEREZ Facility:[facility] Start: 12-22-2021 End: 12-22-2021 ambulatory Ratna ARAMBULA Work Phone: [facility] Start: 12-22-2021 End: 12-22-2021 Patient encounter procedure Ratna ARAMBULA Work Phone: Psychiatry Comment on above: APPOINTMENT CANCELLE D (Primary Dx) Start: 12-17-2021 End: 12-17-2021 ambulatory [facility] Facility:[facility] Start: 12-01-2021 End: 12-02-2021 ambulatory [facility] Facility: Procedures Date Procedure Procedure Detail Performing Clinician Start: 01-15-2024 Plain chest X-ray RAQUEL Stern Work Phone: Start: 08-08-2023 Abdomen endoscopy PHYSI MARIA GUADALUPE [...] Work Phone: Start: 08-02-2022 POC COVID-FLU HERNAN [place] colleen Urbina [employer] DEVELOPER Work Phone: Start: 12-21-2021 Adult depression scr eening assessment Ranta Ye ARAMBULA Work Phone: History of hernia repair Kylie BAEZ Tonsillectomy Mina BAEZ Plan of Treatment Date Care Activity Detail Author Start: 2039 Zoster Vaccines (1 of 2) Zoste r Vaccines (1 of 2) [facility] Start: 02-14-2024 ambulatory Ambulatory Facility:[facility] [place] Start: 01-15-2024 Plain chest X-ray XR chest 2V* [facility] Start: 01-15-2024 XR Chest 2 Views [facility] Start: 08-08-2023 End: 08-08-2023 [facility] Start: 07-25-2023 [facility] Start: 07-25-2023 [facility] Start: 12-21-2022 Adult depression screening assessment DEPRESSION SCREENING [facility] Start: 06-24-2022 Influenza vaccination Influenza Vacc ine (#1) [facility] Start: 05-24-2022 Influenza vaccination Flu vaccine (# 1) [facility] Start: 06-24-2021 Influenza vaccination INFLUENZA (#1) [facility] Start: 2008 DTaP/Tdap/Td vaccine (1 - Tdap) DTaP/Tdap/Td vaccine (1 - Tdap) [facility] Start: 2008 DTaP/Tdap/Td Vaccine s (1 - Tdap) DTaP/Tdap/Td Vaccines (1 - Tdap) [facility] Start: 2008 Urine microalbumin profile DTAP,TDAP,TD (1 - Tdap) [facility] Start: 2007 HEPATITIS C SCREENING HEPATITIS C SC [facility] Start: 2007 Hepatitis C screening [facility]atitis [facility] sc [facility] Start: 2007 HIV SCREENING HIV SCREENING [facility] Start: 2004 HIV screening HIV screen [facility] [employer] [facility] Start: 2001 Depression Screen Depression Screen [facility] Start: 1994 COVID-19 VACCINE (1) COVID-19 VACCIN E (1) [facility] Start: 1990 Varicella vaccine (1 of 2 - 2-dose childhood series) Varicella vaccine (1 of 2 - 2-dose childhood series) [facility] Start: 04-12-1990 COVID-19 Vaccine (#1) COVID-19 Vacci ne (#1) [facility] Start: 1989 Hepatitis C screening Hepatitis C Sc reening [facility] Start: 1989 HIV screening HIV Screening [facility] Chlamydia sp rRNA [Presence] in Cervix by Probe Chlamydia Trachomatis, RNA Lab Routine Screening for STD (sexually transmitted disease) 08/02/2022 3:09 PM EDT [facility] NEISSERIA GONORRHEA/CHLAMYDIA TRACHOMATIS RNA NEISSERIA GONORRHEA/CHLAMYDIA TRACHOMATIS RNA Lab Routine Screening for STD (sexually transmitted disease) 08/02/2022 3:09 PM EDT [facility] Neisseria gonorrhoea e DNA [Presence] in Genital specimen by DANILO with probe detection Neisseria Gonhorrhoeae, RNA Lab Routine Screening for STD (sexually transmitted disease) 08/02/2022 3:09 PM EDT [facility] Education [facility] [facility] Work Phone: Patient referral [facility] Work Phone: End: 08-02-2023 Trichomonas vaginalis, NAAT Trichomonas vaginalis, NAAT Lab Routine Screening for STD (sexually transmitted disease) 1 Occurrences starting 08/02/2022 until 08/02/2023 [facility] Work Phone: Comment on above: 1 Occurrences starti ng 08/02/2022 until 08/02/2023 Trichomonas vaginali s, NAAT Trichomonas vaginalis, NAAT Lab Routine Screening for STD (sexually transmitted disease) 08/02/2022 3:09 PM EDT [facility] Payers Date Payer Category Payer Self-pay [id number] 2022 Medicaid [id number] 2022 Medicare [employer] MEDICARE UHC DUAL COMPLETE [id number] 2022-Present [address] [place] [address] [id number] 2020 Medicaid [facility] MEDICAID [facility] COMMUNITY PLAN MEDICAID [id number] 2020-Present [phone] [address] [place] [address] Medicaid [id number] 1989 Unknown [id number] 2.16.840.1.171923.3.579.2.593 1989 Unknown [id number] 2.16.840.1.244943.3.579.2.593 1989 Unknown [id number] 2.16.840.1.383361.3.579.2.593 1989 Unknown [id number] 2.16.840.1.335200.3.579.2.593 1989 Unknown [id number] 2.16.840.1.089550.3.579.2.727 1989 Unknown [id number] 2.16.840.1.716533.3.579.2.727 1989 Unknown [id number] 2.16.840.1.104407.3.579.2.727 1989 Unknown [id number] 2.16.840.1.863598.3.579.2.727 1989 Unknown [id number] 2.16.840.1.193080.3.579.2.727 1989 Unknown [id number] 2.16.840.1.182371.3.579.2.727 1959 Unknown [id number] Unknown [employer] BC/BS [id number] Unknown [id number] 2.16.840.1.117949.3.579.2.531 Unknown [id number] 2.16.840.1.266531.3.579.2.531 Unknown [id number] 2.16.840.1.668408.3.579.2.531 Unknown [id number] 2.16.840.1.683024.3.579.2.531 Unknown [id number] 2.16.840.1.942902.3.579.2.531 Social History Date Type Detail Facility Tobacco smoking status NCIS Tobacco smoking consumption unknown [facility] Start: 1990 Sex Assigned At Not on file [facility] Start: 08-02-2022 End: 07-19-2023 Tobacco smoking status NCIS Never smoked tobacco [facility] [employer] Start: 08-02-2022 End: 08-21-2022 Tobacco use and exposure Smokeless tobacco non-user [employer] Start: 07-23-2022 End: 08-21-2022 Exposure to SARS-CoV-2 (event) Not sure [employer] Start: 08-21-2022 Tobacco smoking status NCIS Occasional tobacco smoker [employer] Phone: History of tobacco use Cigarette Smoker [employer] Phone: Start: 08-21-2022 Alcohol intake Current drinke r of alcohol (finding) [employer] Phone: Start: 08-21-2022 Alcohol Comment occasionally [employer] Phone: Sex Assigned At [facility] Start: 1990 Sex Assigned At Male [facility] Start: 07-25-2023 End: 01-15-2024 Tobacco smoking status NCIS Ex-smoker (finding) [facility] Tobacco smoking status Never [facility] Medical Equipment Procedure Code Equipment Code Equipment Origin al Text Equipment Identifier Dates Cystoscopy, with ureteral calculus manipulation and stent placement Polymeric ureteral stent [id number] FDA Start: 07-25-2023 Cystoscopy, with ureteral calculus manipulation and stent placement Polymeric ureteral stent [id number] FDA Start: 08-08-2023 Goals Date Patient Goal Desired Activity /State Functional Status Date Assessment Result Facility 09-27-2023 Functional Status N/A [facility] Silvia 07-25-2023 Functional Status N/A [facility] Lis Clinical Notes 12-22-2021 to 11-23-2023 Note Date [...] needed for cough. Increase fluids and rest. Fwqp-cdg-gjztlsr antipyretics as needed. Warning signs and symptoms reviewed with patient today. Patient to go immediately to the ER should she experience any of these. Patient to notify office should symptoms persist and not improve. may need x-ray evaluation. Patient verbalizes understanding and agrees to treatment plan. [facility] Other 01-29-2024 Evaluation note* Encounter Date Diagnosis [...] 3 days. Off work today and tomorrow. [facility] Other 01-12-2024 Evaluation note* Encounter Date Diagnosis [...] she is getting surgical myectomy today at [facility]. They had been estranged for a number of years and only started talking after she got diagnosed and told him to get evaluated. He is unaware of specific genetic testing/mutation in the sister. No family history of sudden cardiac . He reports significant history of palpitations and has cardiac work up: - ECHO 10/13/2023 at [place] (images not available): Normal LVEF 55-60%. Reported [...] his symptoms. - Follow-up in 2 months [facility] Other 12-26-2023 Evaluation note* Encounter Date Diagnosis Assessment Notes Treatment Notes Treatment Clinical Notes Sep, Ventricular hypertrophy (ICD-10 - I51.7) Borderline [facility] AGELON ? Other 12-05-2023 Hospital Discharge instructions Patient Education [...] include: ?8 oz (237 mL) of milk, rbxfgfa-pwzugcyzhqkw-dqzbl milk, and calcium- fortifiedfruit juice. Calcium-fortified means [...] ?Spinach (cooked), rhubarb, beets, sweet potatoes, and Filipino chard. ?Peanuts. ?Potato chips, cayman islander fries, and baked potatoes with skin on. ?Nuts and nut products. ?Chocolate. If you regularly take a diuretic medicine, make sure to eat at least 1 or 2 servings of fruits or vegetables that are high in potassium each day. These include: ?Avocado. ?Banana. ?Riverside, prune, carrot, or tomato juice. ?Baked potato. [...] magnesium, fish oil, or vitamin B6. Take xshp-por-gmfnusl and prescription medicines only as told by [...] Casseroles. Pizza. Lasagna. Frozen meals. Potato chips. Kosovan fries. The items listed above may not [...] provider. Document Revised: 01/20/2023 Document Reviewed: 01/20/2023 [employer] Patient Education 2022 [employer]. Follow Up Care 09/01/2023 14:23:50 With:UNRULY GARDNER, VERO Urbina, URL Address: [address] [facility] [place] [address] [phone] When: Unknown Comments:has f/u with [facility] 02/14/2024 [facility] 11-27-2023 Evaluation note* Encounter Date Diagnosis Assessment [...] ER this past week. Will recheck labs. [facility] Other 10-02-2023 Hospital Discharge instructions Patient Education [...] include: ?8 oz (237 mL) of milk, mhesdux-rgohljgjxglw-cwrjb milk, and calcium- fortifiedfruit juice. Calcium-fortified means [...] ?Spinach (cooked), rhubarb, beets, sweet potatoes, and Filipino chard. ?Peanuts. ?Potato chips, cayman islander fries, and baked potatoes with skin on. ?Nuts and nut products. ?Chocolate. If you regularly take a diuretic medicine, make sure to eat at least 1 or 2 servings of fruits or vegetables that are high in potassium each day. These include: ?Avocado. ?Banana. ?Riverside, prune, carrot, or tomato juice. ?Baked potato. [...] magnesium, fish oil, or vitamin B6. Take vhkq-omj-halwyel and prescription medicines only as told by [...] Casseroles. Pizza. Lasagna. Frozen meals. Potato chips. Kosovan fries. The items listed above may not [...] provider. Document Revised: 06/21/2022 Document Reviewed: 06/21/2022 [employer] Patient Education 2022 [employer]. Follow Up Care 07/22/2023 15:08:09 With:NESTOR PERSON, Mina Nam, URL Address: [facility] [place] [id number]- When: Unknown Comments:Sched Cysto with retro Stent Placement w/pos ureteroscopy [facility] [place] [id number] Evaluation note* Encounter Date Diagnosis Assessment Notes [...] Suspected COVID-19 virus infection (ICD-10 - Z20.822) [facility] Other 07-31-2023 Evaluation note* Encounter Date Diagnosis Assessment Notes Treatment Notes Treatment Clinical Notes Apr, Viral gastroenteriti s (ICD-10 - A08.4) Vitals stable. No signs of acute abdomen on exam. Discussed exam and history is consistent with viral gastroenteritis. Discussed viral nature of illness and typical duration. Fluids and rest encouraged. Mccurtain diet in small amounts as tolerated. May continue Kaopectate. Will Rx as needed Zofran for nausea. Work note given. Discussed contagious nature. Follow-up with PCP if not improving over the next 4 to 5 days, significantly worsening symptoms or high fevers. Patient verbalized understanding of treatment plan. [facility] Other 10-10-2022 History of Present illness Narrative* Froy Alonso LPN - 08/02/2022 3:00 PM EDT PATIENT AMBULATES T ROOM 14 . C/O COUGH CONGESTION AND STATES HE FEELS FOGGY . STATES HE WANTS STD TESTING * Kasia Urbina, RAQUEL-MICROSOFT APPLICATION DEVELOPER - 08/02/2022 3:00 PM EDT Subjective Patient [...] ear normal. Nose: Nose normal. Mouth/Throat: Lips: Hackberry. Mouth: Mucous membranes are moist. Pharynx: Oropharynx [...] assistance. Advised pt to advance to either [facility] or health dept for complete blood work [...] agreeable with the plan. [facility] Instructions* Patient Instructions* ISACC Walker - 08/02/2022 [...] help right away. Last Reviewed: October 2020 [facility] Medical Review Board Thania Trevino, MSN, BS, RNC-CARLA Updated: 12/02/2020 [facility] documented in this [facility]05-31-2022 Note PROCEDURE: XR CHEST 1 V REASON FOR STUDY/CLINICAL HISTORY: COUGH. COMPARISON STUDY: 02/12/2017. TECHNIQUE: Single view(s) of the chest presented for interpretation. FINDINGS: No acute cardiopulmonary process. Normal cardiomediastinal silhouette. No focal consolidation, edema, or large pleural effusion. No pneumothorax. No acute appearing focal significant bony abnormality. IMPRESSION: No acute localizing pulmonary pathology. Electronically authenticated by: ELISEO PIERCE Date: 2022-03-23 00:06[facility]03-01-2022 NoteHNO ID: [id number] Author: RALF Troy Service: ? Author Type: [...] for Vivitrol including comprehensive evaluation, referral to [facility] physician, prior authorization and referral to chronic care clinic. Patient states that it is difficult for him to get to [place] and would like something closer to where he is located. Provided patient contact information for [facility]. Patient declined [facility] evaluation. Provided [facility] contact information and instructed patient to call if interested in rescheduling appointment. RALF Troy-Ellis, [facility] No data available for this section [facility] Evaluation + Plan note Future Appointments Appointment Date:02/14/2024 02:30:00 PM Scheduled Provider:Mina BAEZ MD [facility] Appointment Type:URO Office Visit [facility] Evaluation note* Diagnosis APPOINTMENT CANCELLED- Primary [facility] Diagnosis Viral infection, unspecified- Primary Screening for STD (sexually transmitted disease) Anxiety about health [facility] Diagnosis Accidental drug overdose, initial encounter- Primary documented in this encounter [facility] Work Phone: evaluation noteNo assessment information available [facility] Work Phone: Evaluation noteNo InformationNort [employer] Other Evaluation note* Diagnosis Onset Date Resolution Status Atopic dermatitis acute Generalized anxiety disorder with panic attacks acute [facility] Work Phone: Evaluation note* Diagnosis Onset Date Resolution Status Atopic dermatitis acute Generalized anxiety disorder with panic attacks acute Contact with and (suspected) exposure to covid-[address] [facility] Work Phone: Evaluation note* Diagnosis Onset Date Resolution Status Atopic dermatitis acute Generalized anxiety disorder with panic attacks acute Contact with and (suspected) exposure to covid-19 noneactive Mild intermittent asthma with acute exacerbation noneactive [facility] Work Phone: Evaluation note* Diagnosis Onset Date Resolution Status Atopic dermatitis acute Generalized anxiety disorder with panic attacks acute Contact with and (suspected) exposure to covid-19 noneactive Mild intermittent asthma with acute exacerbation noneactive Bronchitis acute Mild intermittent asthma without complication acute [facility] Work Phone: history general Narrative - Reported* Type Description Date Medical History hernia Medical History anxiety Medical History asthma Medical History HSVZ Medical History ADD Medical History Chronic back pain Surgical History hernia x2 [facility] AGELON ? Other Hishgtc general Narrative - Reported* Type Description Date Medical History hernia Medical History anxiety Medical History asthma Medical History HSVZ Medical History ADD Medical History Chronic back pain Surgical History hernia x2 Surgical History lithotripsy 2022 [facility] Other history general Narrative - Reported* Type Description Date Medical History hernia Medical History anxiety Medical History asthma Medical History HSVZ Medical History ADD Medical History Chronic back pain Surgical History hernia x2 Surgical History lithotripsy 2022 Hospitalization History See Above [facility] Other Hospital Discharge instructions* Attachments The following attachments cannot be sent through Care Everywhere. * Opioids: General Info (Armenian) [facility] Work [facility]: Hospital Discharge instructions Additional Instructions Percocets for severe pain You cannot work or drive when taking Percocet Tylenol or Motrin if needed for minor pain If needed for nausea vomiting Flomax daily Strain all urine Follow-up with urology as discussed Return here if you develop any fever, chills, increased pain vomiting or [facility] Work Phone: Hospital Discharge instructions Additional [...] other reasons. 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, however, changes of the stent are required [...] appointment to remove the string stent [ ][facility] Work Phone: Hospital Discharge instructions No data available for this section [facility] Hospital Discharge instructions Additional Instructions Follow-up with your primary care doctor Return to ED if develop worsening symptoms or [facility] Work Phone: Progress note No data available for this section [facility] Summary Purpose Family History No Family History Records Found Relationship Condition Age at Onset Recorded Date/T ashlee Not Specified No pertinent family history Unknown Advance Directives No Advanced Directives Records FoundDocuments on File Type Date Recorded 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 anation Advance Directives and Living Will Power of Commercial Engineer Advance Directive Response Recorded Date/ Time Advance Directives No December 25 2:02pm Advance Directive Response Recorded Date/ Time Advance Directives No December 25 1:02pm Chief Complaint and Reason for Visit Chief Complaint abd and back pain-nk i Chief Complaint abd and back pain-nk i n20.0 cysto/stent Chief Complaint abd and back pain-nk i n20.0 cysto/stent kidney stone Chief Complaint Cough, Congestion Establish Referred By Vero Stern For Vent Sore Throat, Congestion Sick rash on hands Reason for Visit Atopic dermatitis Generalized anxiety disorder with panic attacks Chief Complaint Referred By Vero Stern For Vent Sore Throat, Congestion Sick rash on hands Chest congestion Reason for Visit Atopic dermatitis Generalized anxiety disorder with panic attacks Contact with and (suspected) exposure to covid-19 Chief Complaint Referred By Vero Stern For Vent Sore Throat, Congestion Sick rash on hands Chest congestion sob Reason for Visit Atopic dermatitis Generalized anxiety disorder with panic attacks Contact with and (suspected) exposure to covid-19 Mild intermittent asthma with acute exacerbation Chief Complaint Referred By Vero Stern For Vent Sore Throat, Congestion Sick rash on hands Chest congestion sob [phone]; Bronchitis Reason for Visit Atopic dermatitis Generalized anxiety disorder with panic attacks Contact with and (suspected) exposure to covid-19 Mild intermittent asthma with acute exacerbation Bronchitis Mild intermittent asthma without complication Reason for Referral Reason evaluate Diagnosis 1 Ventricular hypertro phy (I51.7) Referral Organization [facility] Referring Provider First Name Vero Referring Provider Last Name Jarred Referring Provider Specialty Nurse Pract itmelquiades Referred Organization [facility] Cardiology Referred Provider Joelle Gonzalez Referred Address [address] [place] [address],[place] [address],[place], [place],[id number] Referred Provider Specialty Cardiovascul ar Disease Referral Priority Routine Additional Source Comments Source Comments (unrecognize d section and content) In the event this informatio n is protected by the Federal Confidentiality of Alcohol and Drug Abuse Patient Records regulations: The Federal rules restrict any use of the information to criminally investigate or prosecute any alcohol or drug abuse patient.[facility] Reason for Visit (unrecogniz ed [...] section and content) DATE CREATED AUTHOR 12/22/2021 [facility] DATE CREATED AUTHOR AUTHOR'S ORGANIZ ATION 08/21/2022 [facility] DATE CREATED AUTHOR AUTHOR'S ORGANIZ ATION 11/06/2022 [facility] DATE CREATED AUTHOR AUTHOR'S ORGANIZ ATION 10/10/[address] [facility] DATE CREATED AUTHOR AUTHOR'S ORGANIZ ATION 01/18/2024 [facility] Care Teams (unrecognized sec tion [...] Baez MD Attending Provider Active Team Status: Active Member Role Status Dates Vero Stern APRN RADIATOR FITTER-C Primary Care Provider Active Team Status: Inactive Member Role Status Dates La Nena Travis APRN Attending Provider Active Start: September 10, 2023 End: September 10, 2023 Team Status: Inactive Member Role Status Dates Vero Stern APRN RADIATOR FITTER-C Attending Provider Act kira Start: September 19, 2023 End: September 19, 2023 Team Status: Inactive Member Role Status Dates Joelle Gonzalez MD Attending Provider Active Sta rt: November 04, 2023 End: November 04, 2023 Team Status: Inactive Member Role Status Dates Pura Kay NP-C Attending Provider Active S tart: November 21, 2023 End: November 21, 2023 Team Status: Inactive Member Role Status Dates Vero Stern APRN RADIATOR FITTER-C Attending Provider Act kira Start: November 23, 2023 End: November 23, 2023 Team Status: Inactive Member Role Status Dates Vero Stern APRN RADIATOR FITTER-C Primary Care Provider, Attending Provider Active Start: December 07, 2023 End: December 07, 2023 Team Status: Inactive Member Role Status Dates Vero Stern APRN RADIATOR FITTER-C Primary Care Provider Active Start: January 13, 2024 End: January 13, 2024 La Nena Travis APRN Attending Provider Active Start: January 13, 2024 End: January 13, 2024 Team Status: Inactive Member Role Status Dates Vero Stern APRN RADIATOR FITTER-C Primary Care Provider Active Start: January 15, 2024 End: January 15, 2024 Sang Lovett DO Emergency Provider Active Sta rt: January 15, 2024 End: January 15, 2024 Team Status: Inactive Member Role Status Dates Vero Stern APRN RADIATOR FITTER-C Primary Care Provider, Attending Provider Active Start: January 16, 2024 End: January 16, 2024 Goals (unrecognized section and content) Goals may [...] BE BASED ON THE PRIMARY CLINICAL RECORDS. [employer] provides no warranty or guarantee of the accuracy or completeness of information in this document.
--- NOTE | 2024-01-18 20:10 | ECG_ITS ---
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
--- NOTE | 2024-01-18 20:11 | ED_ITS ---
Documented by User: NATE Alexandre 01/18/24 21:50 HPI - SOB/Dyspnea General Chief Complaint: Shortness of Breath/Dyspnea Stated Complaint: SHORTNESS OF BREATH Time Seen by Provider: 01/18/24 19:58 Source: patient Mode of arrival: walk-in Limitations: no limitations History of Present Illness HPI Narrative: Patient s a 33-year-old male who is well-known to this emergency department for frequent presentations for chest pain and shortness of breath as well as anxiety. Patient has been on steroids and a Z-Fabrice since the beginning of this week when he was seen initially at urgent care and then Located within [facility] emergency department for shortness of breath, wheezing, cough. He states he does not feel any better with these medications and feels as though he is getting worse. He states he typically takes Xanax for anxiety but has been out of this for last few days and he feels very anxious that he feels he cannot breathe. He has had no fevers, vomiting, diarrhea. No sick contacts at home. Patient has been seen in this emergency department multiple times for the symptoms. He admits that he gets multiple medications from different facilities and providers. He has a PCP appointment tomorrow. He has never been referred to pulmonology previously. He does not smoke Related Data Home Medications ?Medication ?Instructions ?Recorded ?Confirmed prednisone 20 mg tablet 20 mg PO DAILY 09/16/23 01/18/24 valacyclovir 1 gram tablet 1,000 mg PO DAILY 09/16/23 01/18/24 albuterol sulfate 90 mcg/actuation 2 puff inhalation Q4H PRN 11/28/23 01/18/24 aerosol inhaler shortness of breath or wheezing benzonatate 200 mg capsule 200 mg PO TID 11/28/23 01/18/24 Previous Rx's ?Medication ?Instructions ?Recorded azithromycin 250 mg tablet 250 mg PO DAILY 4 days #4 tabs 09/16/23 Allergies Allergy/AdvReac Type Severity Reaction Status Date / Time cefaclor [From [facility]] Allergy Severe Verified 09/30/23 15:30 Penicillins Allergy Severe Verified 09/30/23 15:30 Review of Systems ROS Constitutional Denies: fever or chills Ears, nose, mouth, and throat Reports: nasal congestion; Denies: throat pain Cardiovascular Denies: chest pain Respiratory Reports: shortness of breath, cough and wheezing Gastrointestinal Denies: nausea, vomiting or diarrhea Musculoskeletal Denies: back pain Integumentary/Breast Denies: rash Neurological Denies: headache Hematologic/Lymphatic Denies: easy bruising or easy bleeding [facility] Social History Smoking status: Former smoker Exam Narrative Exam Narrative: Gen.: Awake, alert, in no distress Head: Normocephalic, atraumatic ENT: Moist mucous membranes Respiratory: No respiratory distress, Faint expiratory wheezing globally Cardio: Regular rate and rhythm Extremities: Moves extremities equally, no Pedal edema Psych: Normal mood and affect Neuro: No focal neuro deficit Skin: Warm, dry, intact Constitutional Vital Signs, click to edit/add: Last Vital Signs Temp 97.8 F 01/18/24 19:42 Pulse 99 H 01/18/24 20:33 Resp 16 01/18/24 20:33 BP 127/80 01/18/24 21:00 Pulse Ox 95 01/18/24 20:50 O2 Del Method Room Air 01/18/24 20:00 Course Vital Signs Vital signs: Vital Signs Temperature 97.8 F 01/18/24 19:42 Pulse Rate 95 H 01/18/24 19:42 Respiratory Rate 22 01/18/24 19:42 Blood Pressure 145/92 H 01/18/24 19:42 Pulse Oximetry 97 01/18/24 19:42 Oxygen Delivery Method Room Air 01/18/24 19:42 Temperature 97.8 F 01/18/24 19:42 Pulse Rate 99 H 01/18/24 20:33 Respiratory Rate 16 01/18/24 20:33 Blood Pressure 127/80 01/18/24 21:00 Pulse Oximetry 95 01/18/24 20:50 Oxygen Delivery Method Room Air 01/18/24 20:00 MDM - SOB/Dyspnea MDM Narrative Medical decision making narrative: Patient was treated with breathing treatments, fluids, Solu-Medrol, Ativan with improvement in the ER. He has stable vital signs although he does have expiratory wheezing. Chest x-ray Does not show any acute cardiopulmonary changes. Patient has never had a CT scan of the chest previously at this facility and he was counseled that as he has normal labs and chest x-ray, he likely does not have any other acute significant pathology but as he has been to the emergency department for the symptoms multiple times, CT will be performed. He is comfortable with treatment plan. 2148: CT angio is pending, case is turned over to attending physician at this time for disposition Medical Records Attestation: I reviewed the patient's medical records. Lab Data Attestation: I reviewed the patient's lab results. Labs: Lab Results 01/18/24 01/18/24 Range/Units 19:55 20:26 WBC 8.2 (4.0-11.0) 10^3/uL RBC 4.91 (4.70-6.10) 10^6/uL Hgb 15.4 (14.0-18.0) g/dL Hct 44.1 (42.0-54.0) % MCV 89.8 (80.0-94.0) fL MCH 31.4 (25.9-34.0) pg MCHC 34.9 (29.9-35.2) g/dL RDW 11.7 (11.0-15.0) % Plt Count 311 (150-450) 10^3/uL MPV 10.2 (9.5-13.5) fL Neut % (Auto) 79.6 H (43.0-75.0) % Lymph % (Auto) 15.3 L (20.5-60.0) % [place] % (Auto) 4.0 (1.7-12.0) % Eos % (Auto) 0.0 L (0.9-7.0) % Baso % (Auto) 0.4 (0.2-2.0) % Neut # (Auto) 6.5 (1.4-6.5) 10^3/uL Lymph # (Auto) 1.3 (1.2-3.8) 10^3/uL [place] # (Auto) 0.3 (0.3-0.8) 10^3/uL Eos # (Auto) 0.0 (0.0-0.7) 10^3/uL Baso # (Auto) 0.0 (0.0-0.1) 10^3/uL Abs Immat Gran (auto) 0.06 H (0.00-0.03) 10^3/uL Imm/Tot Granulo (auto) 0.7 H (0.0-0.5) % PT 9.8 (9.0-11.6) sec INR <0.93 APTT 24.1 (22.3-36.2) sec D-Dimer <0.19 (<=0.59) mg/L FEU VBG pH 7.459 H (7.330-7.430) VBG pCO2 35.1 L (40.0-52.0) mmHg Sodium 136 (136-145) mmol/L Potassium 3.9 (3.5-5.1) mmol/L Chloride 100 (98-107) mmol/L Carbon Dioxide 25.4 (21.0-32.0) mmol/L Anion Gap 14.5 BUN 23.0 H (7.0-18.0) mg/dL Creatinine 1.22 (0.70-1.30) mg/dL Est GFR ( Amer) >60 (>=60) Est GFR (Non-Af Amer) >60 (>=60) BUN/Creatinine Ratio 18.9 Glucose 120 H (74-106) mg/dL Calcium 9.1 (8.5-10.1) mg/dL Total Bilirubin 0.5 (0.2-1.0) mg/dL AST 26 (15-37) U/L ALT 125 H (16-63) U/L Alkaline Phosphatase 73 (46-116) U/L Troponin I High Sens 4.7 (4.0-76.1) pg/mL NT-Pro-B Natriuret Pep 59.0 (<=450.0) pg/mL Total Protein 7.6 (6.4-8.2) g/dL Albumin 4.3 (3.4-5.0) g/dL Globulin 3.3 g/dL Albumin/Globulin Ratio 1.3 Imaging Data Chest x-ray: Attestation: I have reviewed the pertinent imaging results. Radiologist's impression: ITS Impressions Chest X-Ray 01/18/24 20:43 IMPRESSION: Negative chest x-ray, no acute findings. Electronically authenticated by: CORY IVY Date: 01/18/2024 21:07 Chest CTA 01/18/24 21:06 IMPRESSION: 1. Linear defect extends through the ascending thoracic aorta on axial scans only. This is felt to be artifact rather than dissection. This is seen on the axial scans but not visualized on the coronal or sagittal reconstructed or MIP images, therefore felt to be artifact. If patient has acute chest pain or symptoms suggesting underlying dissection, then repeat study. 2. No acute PE. No other abnormality. Electronically authenticated by: LINDSAY KENNEY Date: 01/18/2024 22:09 ECG Data Attestation: I personally reviewed and interpreted this ECG as follows: (Normal sinus rhythm at a rate of 83, no acute ST elevation or ectopy. EKG reviewed by attending physician) Discharge Plan Discharge Stand Alone Forms: Portal Instructions Chief Complaint: Shortness of Breath/Dyspnea Clinical Impression: RAD (reactive airway disease), Anxiety Patient Disposition: Home, Self-Care Time of Disposition Decision: 22:31 Prescriptions / Home Meds: No Action albuterol sulfate 90 mcg/actuation HFA aerosol inhaler 2 puff INHALATION Q4H PRN (Reason: shortness of breath or wheezing) benzonatate 200 mg capsule 200 mg PO TID valacyclovir 1 gram tablet 1,000 mg PO DAILY prednisone 20 mg tablet 20 mg PO DAILY azithromycin 250 mg tablet 250 mg PO DAILY 4 Days Qty: 4 0RF Rx Instructions: start on day 2 of therapy Print Language: Senegalese Instructions: Asthma (ED), Anxiety (ED) Referrals: Wily Solis DO [Primary Care Provider] - 1 week Tao Kwong DO [Physician] - 1 week Documented by User: Ana María Nino MD 01/18/24 22:31 HPI - SOB/Dyspnea General Chief Complaint: Shortness of Breath/Dyspnea Stated Complaint: SHORTNESS OF BREATH Time Seen by Provider: 01/18/24 19:58 Related Data Home Medications ?Medication ?Instructions ?Recorded ?Confirmed prednisone 20 mg tablet 20 mg PO DAILY 09/16/23 01/18/24 valacyclovir 1 gram tablet 1,000 mg PO DAILY 09/16/23 01/18/24 albuterol sulfate 90 mcg/actuation 2 puff inhalation Q4H PRN 11/28/23 01/18/24 aerosol inhaler shortness of breath or wheezing benzonatate 200 mg capsule 200 mg PO TID 11/28/23 01/18/24 Previous Rx's ?Medication ?Instructions ?Recorded azithromycin 250 mg tablet 250 mg PO DAILY 4 days #4 tabs 09/16/23 Allergies Allergy/AdvReac Type Severity Reaction Status Date / Time cefaclor [From [facility]] Allergy Severe Verified 09/30/23 15:30 Penicillins Allergy Severe Verified 09/30/23 15:30 PFSH PFSH Social History Smoking status: Former smoker Exam Constitutional Vital Signs, click to edit/add: Last Vital Signs Temp 97.8 F 01/18/24 19:42 Pulse 99 H 01/18/24 20:33 Resp 16 01/18/24 20:33 BP 127/80 01/18/24 21:00 Pulse Ox 95 01/18/24 20:50 O2 Del Method Room Air 01/18/24 20:00 Course Vital Signs Vital signs: Vital Signs Temperature 97.8 F 01/18/24 19:42 Pulse Rate 95 H 01/18/24 19:42 Respiratory Rate 22 01/18/24 19:42 Blood Pressure 145/92 H 01/18/24 19:42 Pulse Oximetry 97 01/18/24 19:42 Oxygen Delivery Method Room Air 01/18/24 19:42 Temperature 97.8 F 01/18/24 19:42 Pulse Rate 99 H 01/18/24 20:33 Respiratory Rate 16 01/18/24 20:33 Blood Pressure 127/80 01/18/24 21:00 Pulse Oximetry 95 01/18/24 20:50 Oxygen Delivery Method Room Air 01/18/24 20:00 MDM - SOB/Dyspnea MDM Narrative Medical decision making narrative: Patient was treated with breathing treatments, fluids, Solu-Medrol, Ativan with improvement in the ER. He has stable vital signs although he does have expiratory wheezing. Chest x-ray Does not show any acute cardiopulmonary changes. Patient has never had a CT scan of the chest previously at this facility and he was counseled that as he has normal labs and chest x-ray, he likely does not have any other acute significant pathology but as he has been to the emergency department for the symptoms multiple times, CT will be performed. He is comfortable with treatment plan. 9603: CT angio is pending, case is turned over to attending physician at this time for disposition CT scan was reviewed by myself and is negative for acute findings. The patient was seen and evaluated. He is resting comfortably. He is feeling better but requests something tonight for his anxiety. He will be sent home with a dose of hydroxyzine. He states he has follow-up tomorrow with his family physician. Lab Data Labs: Lab Results 01/18/24 01/18/24 Range/Units 19:55 20:26 WBC 8.2 (4.0-11.0) 10^3/uL RBC 4.91 (4.70-6.10) 10^6/uL Hgb 15.4 (14.0-18.0) g/dL Hct 44.1 (42.0-54.0) % MCV 89.8 (80.0-94.0) fL MCH 31.4 (25.9-34.0) pg MCHC 34.9 (29.9-35.2) g/dL RDW 11.7 (11.0-15.0) % Plt Count 311 (150-450) 10^3/uL MPV 10.2 (9.5-13.5) fL Neut % (Auto) 79.6 H (43.0-75.0) % Lymph % (Auto) 15.3 L (20.5-60.0) % [place] % (Auto) 4.0 (1.7-12.0) % Eos % (Auto) 0.0 L (0.9-7.0) % Baso % (Auto) 0.4 (0.2-2.0) % Neut # (Auto) 6.5 (1.4-6.5) 10^3/uL Lymph # (Auto) 1.3 (1.2-3.8) 10^3/uL [place] # (Auto) 0.3 (0.3-0.8) 10^3/uL Eos # (Auto) 0.0 (0.0-0.7) 10^3/uL Baso # (Auto) 0.0 (0.0-0.1) 10^3/uL Abs Immat Gran (auto) 0.06 H (0.00-0.03) 10^3/uL Imm/Tot Granulo (auto) 0.7 H (0.0-0.5) % PT 9.8 (9.0-11.6) sec INR <0.93 APTT 24.1 (22.3-36.2) sec D-Dimer <0.19 (<=0.59) mg/L FEU VBG pH 7.459 H (7.330-7.430) VBG pCO2 35.1 L (40.0-52.0) mmHg Sodium 136 (136-145) mmol/L Potassium 3.9 (3.5-5.1) mmol/L Chloride 100 (98-107) mmol/L Carbon Dioxide 25.4 (21.0-32.0) mmol/L Anion Gap 14.5 BUN 23.0 H (7.0-18.0) mg/dL Creatinine 1.22 (0.70-1.30) mg/dL Est GFR ( Amer) >60 (>=60) Est GFR (Non-Af Amer) >60 (>=60) BUN/Creatinine Ratio 18.9 Glucose 120 H (74-106) mg/dL Calcium 9.1 (8.5-10.1) mg/dL Total Bilirubin 0.5 (0.2-1.0) mg/dL AST 26 (15-37) U/L ALT 125 H (16-63) U/L Alkaline Phosphatase 73 (46-116) U/L Troponin I High Sens 4.7 (4.0-76.1) pg/mL NT-Pro-B Natriuret Pep 59.0 (<=450.0) pg/mL Total Protein 7.6 (6.4-8.2) g/dL Albumin 4.3 (3.4-5.0) g/dL Globulin 3.3 g/dL Albumin/Globulin Ratio 1.3 Imaging Data Chest x-ray: Radiologist's impression: ITS Impressions Chest X-Ray 01/18/24 20:43 IMPRESSION: Negative chest x-ray, no acute findings. Electronically authenticated by: CORY IVY Date: 01/18/2024 21:07 Chest CTA 01/18/24 21:06 IMPRESSION: 1. Linear defect extends through the ascending thoracic aorta on axial scans only. This is felt to be artifact rather than dissection. This is seen on the axial scans but not visualized on the coronal or sagittal reconstructed or MIP images, therefore felt to be artifact. If patient has acute chest pain or symptoms suggesting underlying dissection, then repeat study. 2. No acute PE. No other abnormality. Electronically authenticated by: LINDSAY KENNEY Date: 01/18/2024 22:09 Discharge Plan Discharge Stand Alone Forms: Portal Instructions Chief Complaint: Shortness of Breath/Dyspnea Clinical Impression: RAD (reactive airway disease), Anxiety Patient Disposition: Home, Self-Care Time of Disposition Decision: 22:31 Prescriptions / Home Meds: No Action albuterol sulfate 90 mcg/actuation HFA aerosol inhaler 2 puff INHALATION Q4H PRN (Reason: shortness of breath or wheezing) benzonatate 200 mg capsule 200 mg PO TID valacyclovir 1 gram tablet 1,000 mg PO DAILY prednisone 20 mg tablet 20 mg PO DAILY azithromycin 250 mg tablet 250 mg PO DAILY 4 Days Qty: 4 0RF Rx Instructions: start on day 2 of therapy Print Language: Senegalese Instructions: Asthma (ED), Anxiety (ED) Referrals: Wily Solis DO [Primary Care Provider] - 1 week Tao Kwong DO [Physician] - 1 week
[2024-01-18 20:22] LABS: Basophils Percent Auto 0.4 % (0.2-2.0); Hematocrit 44.1 % (42.0-54.0); Hemoglobin 15.4 g/dL (14.0-18.0); Immature Granulocytes Abs Auto 0.06 10^3/uL (0.00-0.03); Immature Granulocytes Pct Auto 0.7 % (0.0-0.5); Lymphocytes Absolute Auto 1.3 10^3/uL (1.2-3.8); Lymphocytes Percent Auto 15.3 % (20.5-60.0); Mean Corpuscular HGB Conc 34.9 g/dL (29.9-35.2); Mean Corpuscular Hemoglobin 31.4 pg (25.9-34.0); Mean Corpuscular Volume 89.8 fL (80.0-94.0); Mean Platelet Volume 10.2 fL (9.5-13.5); Monocytes Absolute Auto 0.3 10^3/uL (0.3-0.8); Neutrophils Absolute Auto 6.5 10^3/uL (1.4-6.5); Neutrophils Percent Auto 79.6 % (43.0-75.0); Platelet Count 311 10^3/uL (150-450); Red Blood Count 4.91 10^6/uL (4.70-6.10); Red Cell Distribution Width 11.7 % (11.0-15.0); White Blood Count 8.2 10^3/uL (4.0-11.0)
[2024-01-18] MEDS: LORAZEPAM 2 MG/ML 1 ML VIAL 1 MG IV (20:31)
[2024-01-18] MEDS: METHYLPREDNISOLONE SOD SUCC PF 125 MG/2 ML VIAL IVP (20:32)
[2024-01-18 20:33] LABS: PCO2 VBG 35.1 mmHg (40.0-52.0); pH VBG 7.459 (7.330-7.430)
[2024-01-18] MEDS: ALBUTEROL SULFATE 2.5 MG/3 ML VIAL NEB IH (20:33)
[2024-01-18 20:34] LABS: Partial Thromboplastin Time 24.1 sec (22.3-36.2); Prothrombin Time 9.8 sec (9.0-11.6)
[2024-01-18 20:39] LABS: D Dimer <0.19 mg/L FEU (<=0.59); INR <0.93
[2024-01-18 20:40] LABS: Alanine Aminotransferase 125 U/L (16-63); Albumin Globulin Ratio 1.3; Albumin Level 4.3 g/dL (3.4-5.0); Alkaline Phosphatase 73 U/L (46-116); Anion Gap 14.5; Aspartate Amino Transferase 26 U/L (15-37); BUN Creatinine Ratio 18.9; Bilirubin Total 0.5 mg/dL (0.2-1.0); Calcium 9.1 mg/dL (8.5-10.1); Carbon Dioxide 25.4 mmol/L (21.0-32.0); Chloride 100 mmol/L (98-107); Estimated GFR (African America >60 (>=60); Estimated GFR (Non-African Ame >60 (>=60); Globulin 3.3 g/dL; Glucose 120 mg/dL (74-106); Potassium 3.9 mmol/L (3.5-5.1); Sodium 136 mmol/L (136-145); Total Protein 7.6 g/dL (6.4-8.2); Troponin I High Sensitivity 4.7 pg/mL (4.0-76.1)
--- NOTE | 2024-01-18 20:43 | XR_ITS ---
[address] [address] Patient Name: MANUELA CHAIDEZ MRN: [id number] date: 1990 Sex: M Assigned Patient Location: ER Current Patient Location: ER Accession/Order Number: [id number] Exam Date: 01/18/2024 20:46 Report Date: 01/18/2024 21:07 At the request of: FEDERICO BRAXTON Procedure: XR chest 1V EXAM: XR chest 1V HISTORY: cough COMPARISON: 11/28/2023 and earlier TECHNIQUE: AP upright chest x-ray FINDINGS: Lungs are clear without infiltrate or edema. Normal heart size. No pleural effusion or pneumothorax XR/XR chest 1V IMPRESSION: Negative chest x-ray, no acute findings. Electronically authenticated by: CORY IVY Date: 01/18/2024 21:07
--- NOTE | 2024-01-18 21:06 | CT_ITS ---
[address] [address] Patient Name: MANUELA CHAIDEZ MRN: [id number] date: 1990 Sex: M Assigned Patient Location: ER Current Patient Location: ED.MAIN Accession/Order Number: [id number] Exam Date: 01/18/2024 21:29 Report Date: 01/18/2024 22:09 At the request of: FEDERICO BRAXTON Procedure: CT angio chest EXAMINATION: CT angio chest, 01/18/2024 9:29 PM EDT HISTORY: Chest pain and shortness of breath. Assess for PE. COMPARISON: Chest x-ray 01/18/2024 and prior. TECHNIQUE: CT Angiogram chest with contrast. MIP (maximum intensity projection) images or 3D post processing was performed. CT dose reduction technique was used, including Automated Exposure Control. FINDINGS: Adequate opacification of pulmonary arteries for diagnostic purposes. Normal enhancement of the pulmonary arteries. No evidence of PE. No pulmonary artery enlargement. Normal caliber of the thoracic aorta. There is a linear defect through the central lumen of the ascending thoracic aorta on the axial scans only, not seen on the coronal or sagittal images. This is thought related to artifact rather than dissection. This may need repeat study to confirm. Related with symptoms.2 The arch and descending thoracic aorta are normal. Cardiac chambers are normal in size. No pericardial or mediastinal fluid. No obvious coronary artery calcific disease. No mediastinal or hilar or axillary lymphadenopathy. Normal GE junction and image stomach. The both lungs are expanded and clear without consolidation, mass or nodule. No pleural effusion or pneumothorax. No interstitial thickening. All osseous structures of thorax. No acute upper abdominal findings. CT/CT angio chest IMPRESSION: 1. Linear defect extends through the ascending thoracic aorta on axial scans only. This is felt to be artifact rather than dissection. This is seen on the axial scans but not visualized on the coronal or sagittal reconstructed or MIP images, therefore felt to be artifact. If patient has acute chest pain or symptoms suggesting underlying dissection, then repeat study. 2. No acute PE. No other abnormality. Electronically authenticated by: LINDSAY KENNEY Date: 01/18/2024 22:09
[2024-01-18] MEDS: HYDROXYZINE HCL 25 MG TABLET PO (22:41)
== END 2024-01-18 22:46 | disposition home or self-care (01) ==
PROVIDERS: Physician Assistant; Emergency Provider Emergency Medicine; PCP Internal Medicine
DX: J45.909 Unspecified asthma, uncomplicated (principal); F41.9 Anxiety disorder, unspecified; Z87.891 Personal history of nicotine dependence
CPT/HCPCS: 36415; 71045; 71275; 80053; 82800; 83880; 84484; 85025; 85378; 85610; 85730; 93005; 94640; 96374; 96375; 99285; J2930; Q9967

== ENCOUNTER 2024-03-06 16:50 | Outpatient (OUT) | payer OTHER, SELFPAY ==
[2024-03-06 17:08] LABS: Basophils Absolute Auto 0.1 10^3/uL (0.0-0.1); Basophils Percent Auto 0.8 % (0.2-2.0); Eosinophils Absolute Auto 0.1 10^3/uL (0.0-0.7); Eosinophils Percent Auto 1.9 % (0.9-7.0); Hemoglobin 14.9 g/dL (14.0-18.0); Immature Granulocytes Abs Auto 0.01 10^3/uL (0.00-0.03); Immature Granulocytes Pct Auto 0.1 % (0.0-0.5); Lymphocytes Absolute Auto 2.4 10^3/uL (1.2-3.8); Lymphocytes Percent Auto 31.2 % (20.5-60.0); Mean Corpuscular HGB Conc 34.7 g/dL (29.9-35.2); Mean Corpuscular Hemoglobin 31.2 pg (25.9-34.0); Mean Corpuscular Volume 90.1 fL (80.0-94.0); Mean Platelet Volume 10.2 fL (9.5-13.5); Monocytes Absolute Auto 0.7 10^3/uL (0.3-0.8); Monocytes Percent Auto 9.8 % (1.7-12.0); Neutrophils Absolute Auto 4.3 10^3/uL (1.4-6.5); Neutrophils Percent Auto 56.2 % (43.0-75.0); Platelet Count 237 10^3/uL (150-450); Red Blood Count 4.77 10^6/uL (4.70-6.10); Red Cell Distribution Width 10.8 % (11.0-15.0); White Blood Count 7.6 10^3/uL (4.0-11.0)
[2024-03-08 20:07] LABS: Anti-MPO Antibodies <0.2 units (0.0-0.9); Anti-PR3 Antibodies <0.2 units (0.0-0.9); Cytoplasmic (C-ANCA) <1:20 titer (Neg:<1:20); Perinuclear (P-ANCA) <1:20 titer (Neg:<1:20)
[2024-03-11 08:10] LABS: Immunoglobulin E, Total 63 IU/mL (6-495)
[2024-03-11 15:07] LABS: Aspergillus flavus Negative (Neg:<1:1); Aspergillus fumigatus Negative (Neg:<1:1); Aspergillus niger Negative (Neg:<1:1)
== END 2024-03-06 16:51 | disposition home or self-care (01) ==
PROVIDERS: PCP Internal Medicine; Visit Provider Internal Medicine
DX: J45.50 Severe persistent asthma, uncomplicated (principal)
CPT/HCPCS: 36415; 82785; 83516; 85025; 86037; 86606

== ENCOUNTER 2024-06-19 10:52 | Emergency (ER) | payer OTHER, SELFPAY ==
[2024-06-19 10:58] VITALS: BP 135/85; PULSE 61; TEMP 36.7; O2SAT 98; BMI 30.4
[2024-06-19] MEDS: KETOROLAC TROMETHAMINE 60 MG/2 ML VIAL IM (11:12)
--- NOTE | 2024-06-19 11:12 | XR_ITS ---
The [address] [address] Patient Name: MANUELA CHAIDEZ MRN: [id number] date: 1990 Sex: M Assigned Patient Location: ER Current Patient Location: ER Accession/Order Number: [id number] Exam Date: 06/19/2024 11:04 Report Date: 06/19/2024 11:23 At the request of: MEHUL DONAHUE Procedure: XR ribs RT min 3V w CXR1V EXAMINATION: XR ribs RT min 3V w CXR1V HISTORY: rib trauma ; acute right anterior chest/rib pain after injury COMPARISON: No relevant comparison available. FINDINGS: LUNGS: No significant pulmonary parenchymal abnormalities. PLEURA: No pneumothorax, effusion, or pleural thickening. MEDIASTINUM: No visible mass or adenopathy. CARDIAC: No cardiomegaly or cardiac silhouette abnormality. RIBS: Normal. No significant arthropathy or acute abnormality. OTHER: Negative. XR/XR ribs RT min 3V w CXR1V IMPRESSION: 1. No acute cardiopulmonary process. 2. No appreciable rib abnormality. Electronically authenticated by: ELEONORA RUSHING Date: 06/19/2024 11:23
[2024-06-19 11:54] VITALS: BP 128/88; PULSE 86; O2SAT 98
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
== END 2024-06-19 11:55 | disposition home or self-care (01) ==
PROVIDERS: Emergency Provider Emergency Medicine; PCP Internal Medicine
DX: S20.212A Contusion of left front wall of thorax, initial encounter (principal); W50.0XXA Accidental hit or strike by another person, initial encounter; Z87.891 Personal history of nicotine dependence
CPT/HCPCS: 71101; 96372; 99284; J1885

== ENCOUNTER 2024-07-02 08:44 | Emergency (ER) | payer OTHER, SELFPAY ==
[2024-07-02 08:47] VITALS: BP 119/84; PULSE 79; TEMP 36.5; O2SAT 98; BMI 29.5
--- NOTE | 2024-07-02 08:59 | ED_ITS ---
HPI HPI - General Adult General Chief complaint: Upper Respiratory Infection Stated complaint: sore throat/ earache Time Seen by Provider: 07/02/24 08:52 Source: patient Mode of arrival: walk-in History of Present Illness HPI narrative: 33-year-old male presents to the emergency department for right-sided sore throat, nasal congestion, and right ear pain. He has been having issues for months and saw an ear nose and throat doctor who the patient says did some scopes up his nose. He has been referred to a GI specialist for endoscopy but cannot get in until September, 3 months from now. Over the past week his throat has gotten worse and he has had increased congestion. Related Data Home Medications ?Medication ?Instructions ?Recorded ?Confirmed valacyclovir 1 gram tablet 1,000 mg PO DAILY 09/16/23 06/19/24 albuterol sulfate 90 mcg/actuation 2 puff inhalation Q4H PRN 11/28/23 06/19/24 aerosol inhaler shortness of breath or wheezing Previous Rx's ?Medication ?Instructions ?Recorded oxycodone-acetaminophen 5 mg-325 1 tab PO Q6H #12 tabs 06/19/24 mg tablet (Percocet) fluticasone propionate 50 1 spray intranasal BID #16 grams 07/02/24 mcg/actuation nasal spray,suspension (Flonase Allergy Relief) loratadine 5 mg-pseudoephedrine ER 1 tab PO Q12H PRN nasal congestion 07/02/24 120 mg tablet,extended #20 tabs release,12hr (Claritin-D 12 Hour) prednisone 10 mg tablet See Rx Instructions .Route 07/02/24 .COMPLEX #30 tabs Allergies Allergy/AdvReac Type Severity Reaction Status Date / Time cefaclor [From [facility]] Allergy Severe Verified 09/30/23 15:30 Penicillins Allergy Severe Verified 09/30/23 15:30 Opioid HPI Opioid Management Most Recent Opioid Data: Last Pain Scale 6 06/19/24 11:21 Review of Systems ROS Narrative A ten point review of systems is negative except as noted above. PFSH PFSH Social History Smoking status: Former smoker Little interest or pleasure in doing things: not at all Feeling down, depressed, or hopeless: not at all Exam Narrative Exam Narrative: Nurses note and vital signs reviewed and patient is not hypoxic. General: The patient appears well and in no apparent distress. Patient is resting comfortably on cart. Skin: Warm, dry, no pallor noted. There is no rash noted. Head: Normocephalic, atraumatic Eye: Normal conjunctiva, no drainage Ears, Nose, Mouth, and Throat: oral mucosa is moist. Nares patent. No pharyngeal erythema or exudate. Uvula midline. No retropharyngeal swelling. Both TMs are normal in appearance as are both external canals. Cardiovascular: Regular Rate and Rhythm Respiratory: Patient is in no distress, no accessory muscle use, lungs are clear to auscultation, no wheezing, rales or rhonchi Back: non-tender GI: Soft and nontender Musculoskeletal: No joint swelling Neurological: Awake and alert Psychiatric: Cooperative Constitutional Vital Signs, click to edit/add: Last Vital Signs Temp 97.7 F 07/02/24 08:47 Pulse 79 07/02/24 08:47 Resp 16 07/02/24 08:47 BP 119/84 07/02/24 08:47 Pulse Ox 98 07/02/24 08:47 O2 Del Method Room Air 07/02/24 08:47 Course Vital Signs Vital signs: Vital Signs Temperature 97.7 F 07/02/24 08:47 Pulse Rate 79 07/02/24 08:47 Respiratory Rate 16 07/02/24 08:47 Blood Pressure 119/84 07/02/24 08:47 Pulse Oximetry 98 07/02/24 08:47 Oxygen Delivery Method Room Air 07/02/24 08:47 Temperature 97.7 F 07/02/24 08:47 Pulse Rate 79 07/02/24 08:47 Respiratory Rate 16 07/02/24 08:47 Blood Pressure 119/84 07/02/24 08:47 Pulse Oximetry 98 07/02/24 08:47 Oxygen Delivery Method Room Air 07/02/24 08:47 Medical Decision Making MDM Narrative Medical decision making narrative: Strep test is negative. He has seen an ENT physician about this who is referred him to a GI specialist and they are planning to do upper endoscopy. In the meantime the patient will be placed on Claritin-D, prednisone, and Flonase. Treatment diagnosis and follow-up were discussed with the patient. Differential Diagnosis Differential Diagnosis: GE reflux, strep throat Lab Data Lab results reviewed: Yes I reviewed the patient's lab results Labs: Lab Results 07/02/24 Range/Units 08:50 Streptococcus Screen Negative Discharge Plan Discharge Chief Complaint: Upper Respiratory Infection Clinical Impression: Pharyngitis Patient Disposition: Home, Self-Care Time of Disposition Decision: 09:20 Condition: Good Mode of Transportation: Private Vehicle Prescriptions / Home Meds: New prednisone 10 mg tablet See Rx Instructions .ROUTE .COMPLEX Qty: 30 0RF Rx Instructions: 4 by mouth daily for three days then 3 by mouth daily for three days then 2 by mouth daily for three days then 1 by mouth daily for three days Claritin-D 12 Hour 5-120 mg tablet extended release 12 hr 1 tab PO Q12H PRN (Reason: nasal congestion) Qty: 20 0RF fluticasone propionate [Flonase Allergy Relief] 50 mcg/actuation spray,s uspension 1 spray intranasal BID Qty: 16 0RF Rx Instructions: administer into each nostril No Action albuterol sulfate 90 mcg/actuation HFA aerosol inhaler 2 puff INHALATION Q4H PRN (Reason: shortness of breath or wheezing) valacyclovir 1 gram tablet 1,000 mg PO DAILY oxycodone-acetaminophen [Percocet] 5-325 mg tablet 1 tab PO Q6H Qty: 12 0RF Print Language: Bol[place] Instructions: Pharyngitis (ED) Referrals: Wily Solis DO [Primary Care Provider] - 1 week
--- OUTSIDE RECORDS SUMMARY | 2024-07-02 09:11 | XMS_ITS | CCD ---
Author Organization [facility] CliniSymt Care Team Providers Care Cyber Systems Administrator Name Role Phone Unavailable Primary Care Provider [...] Admitting Unavailable ELISEO PIERCE Consulting Unavailable Claire Rothamn Unavailable La Nena Travis Unavailable NO FAMILY, PHYSICIAN Primary Care Provider Unava ilable RAQUEL Robertson Emergency Provider MD Mina Baez Attending Provider [phone] Vero Stern Unavailable WILY SOLIS Primary Care Physician [phone] Joelle Gonzalez Unavailable Pura Kay Unavailable RAQUEL Stern Primary Care Provider DO Sang Lovett Emergency Provider Sang Lovett Attending Unavailable Sang Lovett Admitting Unavailable Vero Stern Primary Care Unavailable NO FAMILY, PHYSICIAN Primary Care Unavailable Mina Baez Attending Unavailable Mina Baez Admitting Unavailable NO FAMILY, PHYSICIAN Primary Care Unavailable Mina Baez Attending Unavailable Mina Baez Admitting Unavailable Mina Baez Admitting Unavailable NO FAMILY, PHYSICIAN Primary Care Unavailable Mina Baez P Attending Unavailable NO FAMILY, PHYSICIAN Primary Care Unavailable Aracelis Robertson N Attending Unavailable Aracelis Robertson Admitting Unavailable VERO TOLLIVER Attending Unavailable Mina BAEZ P Attending Unavailable Mina BAEZ P Attending Unavailable Mina BAEZ P Referring Unavailable Mina BAEZ P Attending Unavailable NESTOR, Mina P Attending Unavailable Mina BAEZ P Attending Unavailable Unavailable Primary Care Provider UnavailJOELLE Bianchi Referring Unavailab le TIMMIS, ANNA H Attending Unavailable VERO STERN Referring Unavailab le TIMMIS ANNA H Attending Unavailable Allergies Allergy Classification Reported Allergen(s) Allergy Type Date of Onset Reaction(s) Facility (18 sources) Cefaclor; Translations: [cefaclor] Drug Allergy 2 Nausea [facility] (15 sources) Penicillins Allergy to substance 2 Nausea, Anaphylaxis [facility] (13 sources) Cefaclor; Translations: [Ceclor] Drug Allergy 3 [facility] Repository (1 source) Penicillins Drug allergy (disorder) 3 [facility] Repository (20 sources) Penicillin G Drug Allergy 4 [facility] (5 sources) Penicillin; Translations: [penicillin] Drug Allergy [facility] (3 sources) HYDROmorphone; Translations: [hydromorphone] Drug Allergy 3 [facility] (1 source) Cefaclor Drug Allergy 4 [facility] Repository (1 source) Penicillin Drug Allergy 4 [facility] (1 source) Penicillins Drug allergy (disorder) 4 [facility] Repository (1 source) ALLERGIES NOT ON FILE; Translations: [ALLERGIES NOT ON FILE] Propensity to adverse reactions (disorder) [facility] Repository Medications Current Medications Medication Drug Class(es) Dates Sig (Normalized) Sig (Original) acetaminophen 325 mg / oxyCODONE hydrochloride 5 mg oral tablet (1 source) Opioid Agonist Start: 09-26-2023 take 1 tablet by mouth every four to six hours Oxycodone-Acetami nophen (Percocet) 5-325 mg tablet Active 1 TAB PO EVERY 4-6 HOURS 12 3 July 19, 2023 [id number] 200 actuat albuterol 0.09 mg/actuat metered dose inhaler (20 sources) beta2-Adrenergic Agonist Start: 01-15-2024 Albuterol Sulfate (Ventolin Hfa) 90 mcg/actuation HFA aerosol inhaler Active 1 INH INHALATION EVERY 4-6 HOURS 6.7 January 15, 2024 12:00am Start: 12-07-2023 End: 03-23-2024 take 1 puff(s) by inhalation four times daily Albuterol Sulfate Discontinued 2 PUFF INHALATION Four times daily December 07, 2023 1:00am March 23, 2024 11:31am Start: 11-21-2023 take 2 puff(s) by in [...] 4-6 hours for 30 days Aug, Not-Taking/PRN ALPRAZolam 0.25 mg oral tablet (10 sources) Benzodiazepine Start: 06-05-2024 take 1 tablet by mouth twice daily Alprazolam (Xanax) 0.25 mg tablet Active 0.25 MG PO Twice daily 10 June 05, 2024 12:00am Start: 12-07-2023 End: 01-15-2024 take 1 tablet by mouth once daily at bedtime Alprazolam (Xanax) 0.25 mg tablet Discontinued 0.25 MG PO Daily at bedtime December 07, 2023 1:00am January 15, 2024 10:18pm Azithromycin (9 sources) Macrolide Antimicrobial Start: 06-05-2024 Azithr omycin Active 0 PO daily 03 28June 05, 2024 12:00am Take 2 on day 1 and then take 1 for the next 4 days (days 2-5) Start: 01-15-2024 End: 03-23-2024 Azithromycin Discontinued 0 PO .COMPLEX January 15, 2024 12:00am March 23, 2024 11:28am For 250 mg dose pack: take 500 [...] times a day Oct, Active dextromethorphan hydrobromide 3 mg/ml / promethazine hydrochloride 1.25 mg/ml oral solution (1 source) Phenothiazine, Uncompetitive K-fffctw-D-asparta te Receptor Antagonist, Sigma-1 Agonist Start: 11-23-2023 Promethazine-DM 6.25-15 MG/5ML 5 mL as needed Orally every 6 hrs for 7 days Oct, Active famotidine 20 mg oral tablet (2 sources) Histamine-2 Receptor Antagonist Start: 04-11-2024 take 20 mg by mouth once daily at bedtime Famotidine Active 20 MG PO Daily at bedtime April 11, 2024 12:00am fluticasone propionate 0.05 mg/actuat metered dose nasal spray (2 sources) Corticosteroid Start: 04-11-2024 take 1 spray(s) nasal route twice daily Fluticasone Propionate (Flonase Allergy Relief) 50 mcg/actuation spray,suspension Active 1 SPRAY INTRANASAL Twice daily April 11, 2024 12:00am administer into each nostril Fluticasone Propion-Salmeterol (6 sources) Corticosteroid, beta2-Adrenergic Agonist Start: 01-16-2024 Fluticasone Propion-Salmeterol (Advair Diskus) 100-50 mcg/dose blister with device Active 1 INH INHALATION Twice daily 60 January 16, 2024 12:00am gabapentin 100 mg oral capsule (4 sources) Anti-epileptic Agent Start: 03-23-2024 End: 05-17-2024 take 100 mg by mouth once daily at bedtime Gabapentin Active 100 MG PO Daily at bedtime 30 May 17, 2024 3:06pm ibuprofen 800 mg oral tablet (1 source) Nonsteroidal Anti-inflammatory Drug Start: 07-07-2023 take 1 tablet by mouth three times daily at mealtime as needed Ibuprofen 800 MG 1 tablet with food or milk as needed Orally Three times a day for 7 days Jun, Active methylPREDNISolone 4 mg oral tablet (12 sources) Corticosteroid Start: 06-05-2024 take 1 tablet by mouth once Methylprednisolone (Medrol (Fabrice)) 4 mg tablets,dose pack Active 0 PO per package directions 13 04June 05, 2024 12:00am PO PER PKG DIR Start: 03-11-2014 Depo-Medrol 80 mg February, 80 mg omeprazole 40 mg delayed release oral capsule (2 sources) Proton Pump Inhibitor Start: 04-11-2024 take 40 mg by mouth once daily in the morning Omeprazole Active 40 MG PO Every morning April 11, 2024 12:00am ondansetron 4 mg disintegrating oral tablet (20 sources) Serotonin-3 Receptor Antagonist Start: 05-30-2024 take 4 mg by mouth every eight hours Ondansetron Active 4 MG PO Q8H 30 May 30, 2024 12:00am Start: 07-19-2023 End: 08-08-2023 take 4 mg by mouth every eight hours Ondansetron Discontinued 4 MG PO Q8H 06 26July 19, 2023 12:00am August 08, 2023 2:01pm [...] 6 to 8 hours December 25, 2020 1:00July 19, 2023 6:37pm oxybutynin chloride 5 mg oral tablet (13 sources) Cholinergic Muscarinic Antagonist Start: 08-09-2023 take 1 tablet by mouth three times daily as needed oxybutynin 5 mg Tab 5 mg = 1 tab(s), Oral, TID, PRN for urinary discomfort, # 60 tab(s), Refills(s) 0, Pharmacy: [facility]/pharmacy #[id number], 175, cm, 07/25/23 9:08:00 EDT, Height/Length Dosing, 89.5, kg, 07/25/23 9:08:00 EDT, Weight Dosing Start Date: 08/09/23 Status: Ordered Start: 07-25-2023 End: 08-08-2023 take 5 mg by mouth twice daily Oxybutynin Chloride Dis continued 5 MG PO Twice daily 60 July 25, 2023 12:00am August 08, 2023 2:01pm Promethazine-Codeine (1 source) Start: 01-16-2024 take 1 mL by mouth at bedtime Promethazine-Codeine Active 5 ML PO Bedtime 15 3 January 16, 2024 12:00am traZODone hydrochloride 100 mg oral tablet (18 sources) Serotonin Reuptake Inhibitor Start: 12-07-2023 take 100 mg by mouth once daily at bedtime Trazodone Active 100 MG PO Daily at bedtime December 07, 2023 1:00am take 1 tablet by ran th every twenty-four hours traZODone HCl 100 MG 1 tablet at bedtime Orally Once a day for 90 days Active triamcinolone acetonide 1 mg/ml topical cream (12 sources) Corticosteroid Start: 03-26-2024 End: 04-16-2024 Triamcinolone Acetonide Active 1 APPLIC TOPICAL Twice daily 22 08April 16, 2024 11:08am Start: 12-07-2023 End: 01-13-2024 Triamcinolone Acetonide Disc ontinued 1 APPLIC TOPICAL Twice daily 22 05December 07, 2023 1:00am January 13, 2024 11:34am Completed/Discontinued Medications Medication Drug Class(es) Dates Sig (Normalized) Sig (Original) acetaminophen 325 mg oral tablet (20 sources) Start: 08-08-2023 End: 12-07-2023 take 2 [...] / HYDROcodone bitartrate 5 mg oral tablet (20 sources) Opioid Agonist Start: 07-25-2023 End: 12-07-2023 take 1 tablet by mouth every four to six hours Hydrocodone-Acetaminophen Discontinued 1 TAB PO EVERY 4-6 HOURS 7 August 08, 2023 December 07, 2023 4:56pm ciprofloxacin 500 mg oral tablet (20 sources) Quinolone Antimicrobial Start: 07-25-2023 End: 12-07-2023 take 1 tablet by mouth every two hours Ciprofloxacin Hcl (Cipro) 500 mg tablet Discontinued 500 MG PO Q12H August 08, 2023 12:00am December 07, 2023 4:56pm administer dose at least 2 hrs before/6 hrs after dairy products, calcium, zinc, and/or iron-containing products codeine phosphate 2 mg/ml / promethazine hydrochloride 1.25 mg/ml oral solution (10 sources) Opioid Agonist, Phenothiazine Start: 01-16-2024 End: 01-19-2024 take 1 mL by mouth at bedtime Promethazine-Codeine Discontinued 5 ML PO Bedtime 15 3 January 16, 2024 1:11pm January 19, 2024 1:07pm dextromethorphan hydrobromide 15 mg / guaiFENesin 400 mg / pseudoephedrine hydrochloride 60 mg oral tablet (9 sources) alpha-Adrenergic Agonist, Uncompetitive E-gzgzte-Y-aspar jones Receptor Antagonist, Sigma-1 Agonist Start: 01-13-2024 End: 01-19-2024 take 4 tablets by mouth every twenty-fou r hours Zxcrqobuxlpeogg-Bi-Zklnkehi sin (Capmist Dm) 60-15-400 mg tablet Discontinued 1 TAB PO EVERY 4-6 HOURS January 13, 2024 12:00am January 19, 2024 1:02pm do not exceed 4 doses per 24 hrs Start: 07-07-2023 take 4 tablets by mo [facility] every twenty-four hours as needed Capmist DM 60-15-400 MG as needed Orally every 4-6 hours as needed, max 4 tablets in 24 hours for 5 days Jun, Active dextromethorphan hydrobromide 1.5 mg/ml / pyrilamine maleate 1.5 mg/ml oral solution (8 sources) Uncompetitive Q-lqjcsr-J-aspartate Receptor Antagonist, Sigma-1 Agonist Start: 09-10-2023 take 10 mL by mouth every eight hours as needed [place] DM 7.5-7.5 MG/5ML 10 mL Orally every 8 hours for 5 days Aug, Not-Taking/PRN doxycycline monohydrate 100 mg oral tablet (11 sources) Tetracycline-class Drug Start: 01-10-2024 End: 01-19-2024 take 100 mg by mouth twice daily Doxycycline Monohydrate Discontinued 100 MG PO Twice daily 06 05January 10, 2024 12:00am January 19, 2024 1:02pm Start: 11-21-2023 take 1 tablet by [facility] every twelve hours Doxycycline Hyclate 100 MG 1 tablet Orally Twice a day for 10 day(s) Oct, Active gadoterate meglumine (Dotarem) 0.5 mmol/mL contrast injection 40 mL (1 source) Start: 04-04-2024 End: 04-04-2024 inject 40 mL intravenously once 40 mL, intravenous, Once in imaging, Starting on Tue04/04/24 at 1451, For 1 dose, Administer undiluted as rapid I.V. bolus injection hydrOXYzine hydrochloride 25 mg oral tablet (6 sources) Antihistamine Start: 01-19-2024 End: 03-23-2024 take 25 mg by mouth once daily at bedtime Hydroxyzine Hcl Discontinued 25 MG PO Daily at bedtime January 19, 2024 12:00am March 23, 2024 11:40am Start: 08-02-2022 End: 08-12-2022 take 1 capsule by mouth three times daily hydrOXYzine pamoate (Vistaril) 25 mg capsule Indications: Anxiety about health Take 1 capsule (25 mg total) by mouth 3 (three) times a day if needed for itching for up to 10 days. 30 capsule 0 08/02/2022 08/12/2022 Active pantoprazole 40 mg delayed release oral tablet (13 sources) Proton Pump Inhibitor Start: 12-25-2020 End: 07-19-2023 take 1 tablet by mouth once daily Pantoprazole (Protonix) 40 mg tablet,delayed release (DR/EC) Discontinued 40 MG PO Daily 14 December 25, 2020 1:00am July 19, 2023 6:37pm predniSONE 50 mg oral tablet (20 sources) Start: 01-15-2024 End: 03-23-2024 take 50 mg by mouth once daily Prednisone Discontinued 50 MG PO Daily 02 25January 15, 2024 12:00am March 23, 2024 11:28am Start: 01-13-2024 End: 01-19-2024 take 20 mg by mouth twice daily Prednisone Discontinue d 20 MG PO Twice daily 07 28January 13, 2024 12:00am January 19, 2024 1:02pm Start: 09-10-2023 take 1 tablet by ran th every twelve hours predniSONE 20 MG 1 tablet Orally bid for 5 day(s) Oct, Active Start: 07-07-2023 take 1 tablet by ran th every twelve hours prednisone 20 MG 1 tablet Orally BID for 5 Jun, Active sucralfate 1000 mg oral tablet (13 sources) Aluminum Complex Start: 12-25-2020 End: 07-19-2023 take 1 tablet by mouth every six hours Sucralfate (Carafate) 1 gram tablet Discontinued 1 GM PO Q6H 56 December 25, 2020 1:00am July 19, 2023 6:37pm tamsulosin hydrochloride 0.4 mg oral capsule (14 sources) alpha-Adrenergic Feliberto Start: 07-19-2023 End: 08-08-2023 take 1 capsule by mouth once daily Tamsulosin (Flomax) 0.4 mg capsule Discontinued 0.4 MG PO Daily July 19, 2023 12:00am August 08, 2023 2:01pm tiZANidine 2 mg oral tablet (13 sources) Central alpha-2 Adrenergic Agonist Start: 12-25-2020 End: 07-19-2023 take 2 mg by mouth once daily at bedtime Tizanidine Discontinued 2 MG PO Daily at bedtime December 25, 2020 1:00am July 19, 2023 6:38pm valACYclovir 500 mg oral tablet (20 sources) [...] Problem Date Documented Date Episodic/Chronic Abdominal pain (13 sources) Epigastric pain; Translations: [Epigastric pain] 12-25-2020 Episodic Acute and chronic tonsillitis (4 sources) Hypertrophy of tonsils; Translations: [Enlargement of left palatine tonsil] 03-25-2024 Chronic Allergic reactions (15 sources) Atopic dermatitis; Translations: [Atopic dermatitis, unspecified] 12-07-2023 Chronic Anxiety disorders (20 sources) Anxiety about body function or health; Translations: [Other specified anxiety disorders] Onset: 03-24-2022 Chronic Asthma (20 sources) Asthma; Translations: [Mild intermittent asthma] 07-25-2023 Chronic Calculus of urinary tract (20 sources) Ureteric stone; Translations: [Calculus of ureter] Onset: 07-19-2023 07-19-2023 Episodic Cardiac dysrhythmias (2 sources) Palpitations Episodic Chronic obstructive pulmonary disease and bronchiectasis (12 sources) Bronchitis, not specified as acute or chronic; Translations: [Bronchitis] Onset: 01-15-2024 Episodic Disorders usually diagnosed in infancy, childhood, or adolescence (9 sources) Attention deficit hyperactivity disorder, predominantly inattentive type; Translations: [Other specified behavioral and emotional disorders with onset usually occurring in childhood and adolescence] 12-07-2023 Chronic Esophageal disorders (1 source) Gastroesophageal reflux disease; Translations: [Gastro-esophageal reflux disease without esophagitis] 05-30-2024 Chronic Immunizations and screening for infectious disease (8 sources) Patient encounter status; Translations: [Encounter for screening for infections with a predominantly sexual mode of transmission] Episodic Intestinal infection (1 source) Viral intestinal infection, unspecified Episodic Nausea and vomiting (1 source) Nausea; Translations: [Nausea] 05-30-2024 Episodic Nonspecific chest pain (1 source) Chest pain, unspecified; Translations: [CHEST PAIN UNSPECIFIED] Onset: 11-05-2022 Episodic Other and ill-defined heart disease (17 sources) Ventricular hypertrophy ; Translations: [Cardiomegaly] 12-07-2023 Chronic Other and ill-defined heart disease (1 source) Cardiomegaly Chronic Other diseases of kidney and ureters (12 sources) Hydronephrosis with renal and ureteral calculous obstruction; Translations: [Hydronephrosis with urinary obstruction due to ureteral calculus] 07-25-2023 Episodic Other lower respiratory disease (4 sources) Shortness of breath; Translations: [SHORTNESS OF BREATH] Onset: 11-04-2022 Episodic Other nervous system disorders (3 sources) Paresthesia of left lower limb; Translations: [Paresthesia of skin] 03-23-2024 Episodic Other nervous system disorders (3 sources) Paresthesia of skin; Translations: [Disturbance of skin sensation] 03-23-2024 Episodic Other non-traumatic joint disorders (3 sources) Hip pain; Translations: [Pain in left hip] 03-23-2024 Episodic Other non-traumatic joint disorders (3 sources) Pain in left hip; Translations: [Pain in joint, pelvic region and thigh] 03-23-2024 Episodic Other screening for suspected conditions (not mental disorders or infectious disease) (1 source) Other specified abnormal findings of blood chemistry Episodic Other skin disorders (1 source) Eruption; Translations: [Rash and other nonspecific skin eruption] 04-11-2024 Episodic Other skin disorders (1 source) Rash and other nonspecific skin eruption; Translations: [Rash and other nonspecific skin eruption] 04-11-2024 Episodic Other upper respiratory disease (2 sources) Hoarse; Translations: [Dysphonia] 03-25-2024 Episodic Other upper respiratory disease (2 sources) Dysphonia; Translations: [Dysphonia] 03-23-2024 Episodic Other upper respiratory infections (4 sources) Acute upper respiratory infection, unspecified; Translations: [Acute pharyngitis, unspecified] Onset: 03-24-2022 Episodic Otitis media and related conditions (3 sources) Dysfunction of eustachian tube; Translations: [Unspecified Eustachian tube disorder, unspecified ear] 04-11-2024 Episodic Ana M-; endo-; and myocarditis; cardiomyopathy (except that caused by tuberculosis or sexually transmitted disease) (3 sources) Hypertrophic cardiomyopathy; Translations: [Other hypertrophic cardiomyopathy] Onset: 04-04-2024 04-04-2024 Chronic Poisoning by other medications and drugs (2 sources) Poisoning by unspecified drugs, medicaments and biological substances, accidental (unintentional), initial encounter; Translations: [Poisoning by unspecified drug or medicinal substance] Onset: 08-21-2022 Episodic Residual codes; unclassified (5 sources) Obstructive sleep apnea (adult) (pediatric); Translations: [OBSTRUCTIVE SLEEP APNEA] Onset: 12-01-2021 Chronic Residual codes; unclassified (18 sources) Obstructive sleep apnea syndrome; Translations: [Obstructive sleep apnea (adult) (pediatric)] 12-07-2023 Chronic Residual codes; unclassified (9 sources) Sleep disorder; Translations: [Sleep disorder, unspecified] Episodic Residual codes; unclassified (1 source) Sleep disorder, unspecified Episodic Residual codes; unclassified (2 sources) Family history of ischemic heart disease and other diseases of the circulatory system Episodic Spondylosis; intervertebral disc disorders; other back problems (9 sources) Chronic back pain ; Translations: [Dorsalgia, [...] (SUSP) EXPOS COVID-19] Onset: 12-21-2021 Viral infection (12 sources) Viral disease; Translations: [Viral infection, unspecified] Episodic Past or Other Problems Problem Classification Problem Date Documented Da te Episodic/Chronic Fracture of upper limb (1 source) Fracture [...] Test Name Value Interpretation Reference Range Facility MR CARDIAC MORPHOLOGY AND FU NCTION W AND WO IV CONTRASTon 04-04-2024 MR CARDIAC MORPHOLOGY AND FUNCTION W AND WO IV CONTRAST Interpreted By: Leona Sanders, STUDY: MR CARDIAC RESONANCE IMAGING FOR VELOCITY FLOW MAPPING; MR CARDIAC MORPHOLOGY AND FUNCTION W AND WO IV CONTRAST; 04/04/2024 3:17 pm INDICATION: Signs/Symptoms:HOCM; Signs/Symptoms:.. This study is performed to assess myocardial viability and damage, and to quantitate left ventricular and valvular function. COMPARISON: None. ACCESSION NUMBER(S): [id number]; [id number] ORDERING CLINICIAN: JOELLE GONZALEZ TECHNIQUE: [place]derr[place] 1.5 Gillian MRI scanner. Turbo spin echo and balanced steady state free precession (bSSFP) imaging for anatomic definition. Flow quantification sequences for hemodynamics. Delayed gadolinium enhancement analysis after injection of 40 ML Unavailable. HT-68 inches, 173 cm; WT-205 pounds, 93 kg; BSA-2.07 m2 FINDINGS: CARDIAC CHAMBERS Normal atrioventricular and ventriculoarterial concordance LEFT ATRIUM Normal size (Area-19 cm2) RIGHT ATRIUM Normal size (Area-15 cm2) INTERATRIAL SEPTUM Intact. LEFT VENTRICLE The left ventricle is normal in size and shape, and has normal global systolic function. Normal myocardial wall thickness. Anterior septum 1.1 cm. There are no segmental wall motion abnormalities. Quantitative left ventricular functional values are as follows: EDV = 166 cc; EDVi = 80 cc/m2 ESV = 67 cc; ESVi = 32 cc/m2 Stroke volume = 99 cc; SVi = 48 cc/m2 LVEF = 60 % Absolute Cardiac Output = 6.8 l/min.; COi = 3.3 l/min/m2 LV mass = 188 gm; LVMi = 91 gm/m2 (normal 59-92). *Travis WILDE et al. Normalized left ventricular systolic and diastolic function by steady state free precession cardiovascular magnetic resonance. J Cardiovasc Magn Reson 2006; 8:417-26. Delayed-enhancement imaging reveals uniformly nulled myocardium, signifying that there has been no prior ischemic myocardial damage. There is also no definite evidence of interstitial fibrosis to suggest an infiltrative process. RIGHT VENTRICLE The right ventricle appears normal in size, shape, and has normal qualitative systolic function. No segmental wall motion abnormalities. No abnormal delayed enhancement in the myocardium. RV EF 53%. INTERVENTRICULAR SEPTUM Intact. AORTIC VALVE Trileaflet aortic valve without stenosis. There is trivial aortic regurgitation. Flow quantification through the ascending aorta: Forward volume =87 cc/beat Reverse volume = 4 cc/beat Net forward volume = 83 cc/beat MITRAL VALVE There is trivial mitral regurgitation. TRICUSPID VALVE There is qualitative trivial tricuspid regurgitation. Flow analysis QP 7 liters/minute QS 7 liters/minute QP/QS 1.0 THORACIC AORTA The thoracic aorta appears normal in course, caliber, and contour. There is no evidence for acute aortic pathology. The arch vessel branching pattern is normal. All the arch branch vessels appear widely patent in their proximal portions. PULMONARY ARTERIES The central pulmonary arteries appear normal). SYSTEMIC AND PULMONARY VEINS Normal systemic venous and pulmonary venous return. The SVC and IVC are of normal caliber. Normal pulmonary venous anatomy. CHEST The chest wall is normal. No significant lymphadenopathy or mass is seen in limited images of the mediastinum. Limited imaging through the lungs reveals no gross abnormalities. No pleural effusion. UPPER ABDOMEN Limited imaging through the upper abdomen reveals no abnormalities of the visualized organs. IMPRESSION: 1. Normal left ventricular cavity size and myocardial wall thickness with preserved systolic function. Ejection fraction 60%. 2. Delayed enhancement imaging is normal. No evidence of fibrosis, infiltrative disease, previous myocardial infarction, or inflammation of the left ventricular or right ventricular myocardium. 3. Normal right ventricular cavity size with preserved systolic function. RV EF 53%. No CMR evidence of ARVC. MACRO: None Signed by: Leona Sanders 04/05/2024 1:46 PM Dictation workstation: [id number] [facility] MR CARDIAC RESONANCE IMAGING FOR VELOCITY FLOW MAPPINGon 04-04-2024 MR CARDIAC RESONANCE IMAGING FOR VELOCITY FLOW MAPPING Interpreted By: Leona Sanders, STUDY: MR CARDIAC RESONANCE IMAGING FOR VELOCITY FLOW MAPPING; MR CARDIAC MORPHOLOGY AND FUNCTION W AND WO IV CONTRAST; 04/04/2024 3:17 pm INDICATION: Signs/Symptoms:HOCM; Signs/Symptoms:.. This study is performed to assess myocardial viability and damage, and to quantitate left ventricular and valvular function. COMPARISON: None. ACCESSION NUMBER(S): [id number]; [id number] ORDERING CLINICIAN: JOELLE GONZALEZ TECHNIQUE: [place] 1.5 Gillian MRI scanner. Turbo spin echo and balanced steady state free precession (bSSFP) imaging for anatomic definition. Flow quantification sequences for hemodynamics. Delayed gadolinium enhancement analysis after injection of 40 ML Unavailable. HT-68 inches, 173 cm; WT-205 pounds, 93 kg; BSA-2.07 m2 FINDINGS: CARDIAC CHAMBERS Normal atrioventricular and ventriculoarterial concordance LEFT ATRIUM Normal size (Area-19 cm2) RIGHT ATRIUM Normal size (Area-15 cm2) INTERATRIAL SEPTUM Intact. LEFT VENTRICLE The left ventricle is normal in size and shape, and has normal global systolic function. Normal myocardial wall thickness. Anterior septum 1.1 cm. There are no segmental wall motion abnormalities. Quantitative left ventricular functional values are as follows: EDV = 166 cc; EDVi = 80 cc/m2 ESV = 67 cc; ESVi = 32 cc/m2 Stroke volume = 99 cc; SVi = 48 cc/m2 LVEF = 60 % Absolute Cardiac Output = 6.8 l/min.; COi = 3.3 l/min/m2 LV mass = 188 gm; LVMi = 91 gm/m2 (normal 59-92). *Travis AM et al. Normalized left ventricular systolic and diastolic function by steady state free precession cardiovascular magnetic resonance. J Cardiovasc Magn Reson 2006; 8:417-26. Delayed-enhancement imaging reveals uniformly nulled myocardium, signifying that there has been no prior ischemic myocardial damage. There is also no definite evidence of interstitial fibrosis to suggest an infiltrative process. RIGHT VENTRICLE The right ventricle appears normal in size, shape, and has normal qualitative systolic function. No segmental wall motion abnormalities. No abnormal delayed enhancement in the myocardium. RV EF 53%. INTERVENTRICULAR SEPTUM Intact. AORTIC VALVE Trileaflet aortic valve without stenosis. There is trivial aortic regurgitation. Flow quantification through the ascending aorta: Forward volume =87 cc/beat Reverse volume = 4 cc/beat Net forward volume = 83 cc/beat MITRAL VALVE There is trivial mitral regurgitation. TRICUSPID VALVE There is qualitative trivial tricuspid regurgitation. Flow analysis QP 7 liters/minute QS 7 liters/minute QP/QS 1.0 THORACIC AORTA The thoracic aorta appears normal in course, caliber, and contour. There is no evidence for acute aortic pathology. The arch vessel branching pattern is normal. All the arch branch vessels appear widely patent in their proximal portions. PULMONARY ARTERIES The central pulmonary arteries appear normal). SYSTEMIC AND PULMONARY VEINS Normal systemic venous and pulmonary venous return. The SVC and IVC are of normal caliber. Normal pulmonary venous anatomy. CHEST The chest wall is normal. No significant lymphadenopathy or mass is seen in limited images of the mediastinum. Limited imaging through the lungs reveals no gross abnormalities. No pleural effusion. UPPER ABDOMEN Limited imaging through the upper abdomen reveals no abnormalities of the visualized organs. IMPRESSION: 1. Normal left ventricular cavity size and myocardial wall thickness with preserved systolic function. Ejection fraction 60%. 2. Delayed enhancement imaging is normal. No evidence of fibrosis, infiltrative disease, previous myocardial infarction, or inflammation of the left ventricular or right ventricular myocardium. 3. Normal right ventricular cavity size with preserved systolic function. RV EF 53%. No CMR evidence of ARVC. MACRO: None Signed by: Leona Sanders 04/05/2024 1:46 PM Dictation workstation: [id number] [facility] Aspergillus niger IgE Ab [Un its/volume] in Serumon 03-06-2024 A. niger IgE Qn (S) Negative Neg:<1:1 [facility] Comment on above: Performed at: [facility] jennifer [address] [id number] Director: Lupe Monaco MD, Phone: [phone] Basophils Auto (Bld) [#/Vol] on 03-06-2024 Basophils (Bld) [#/Vol] 0.1 10 3/uL 0.0-0.1 [facility] Basophils/100 WBC Auto (Bld) on 03-06-2024 Basophils/100 WBC (Bld) 0.8 % 0.2-2.0 [facility] Eosinophils/100 WBC Auto (Bl d)on 03-06-2024 Eosinophils/100 WBC (Bld) 1.9 % 0.9-7.0 [facility] Erythrocyte distribution wid th Auto (RBC) [Ratio]on 03-06-2024 Erythrocyte distribution width (RBC) [Ratio] 10.8 % 11.0-15.0 [facility] Hematocrit Auto (Bld) [Volum e fraction]on 03-06-2024 Hematocrit (Bld) [Volume fraction] 43.0 % 42.0-54.0 [facility] Hemoglobin [Mass/volume] in Bloodon 03-06-2024 Hemoglobin (Bld) [Mass/Vol] 14.9 g/dL 14.0-18.0 [facility] IgE [Units/volume] in Serum or Plasmaon 03-06-2024 IgE Qn 63 [IU]/mL 6-495 [facility] Comment on above: Performed at: [address] [id number] Director: Lupe Monaco MD, Phone: [phone] Laboratory - Hematology and Cell countson 03-06-2024 Immature granulocytes/100 WBC (Bld) 0.1 % 0.0-0.5 [facility] Leukocytes [#/volume] correc michael for nucleated erythrocytes in Blood by Automated counon 03-06-2024 WBC corrected for nucl RBC Auto (Bld) [#/Vol] 7.6 10 3/uL 4.0-11.0 [facility] Lymphocytes Auto (Bld) [#/Vo l]on 03-06-2024 Lymphocytes (Bld) [#/Vol] 2.4 10 3/uL 1.2-3.8 [facility] Lymphocytes/100 WBC Auto (Bl d)on 03-06-2024 Lymphocytes/100 WBC (Bld) 31.2 % 20.5-60.0 [facility] MCH Auto (RBC) [Entitic mass ]on 03-06-2024 MCH (RBC) [Entitic mass] 31.2 pg 25.9-34.0 [facility] MCHC Auto (RBC) [Mass/Vol]on 03-06-2024 MCHC (RBC) [Mass/Vol] 34.7 g/dL 29.9-35.2 [facility] MCV Auto (RBC) [Entitic vol] on 03-06-2024 MCV (RBC) [Entitic vol] 90.1 fL 80.0-94.0 [facility] Monocytes Auto (Bld) [#/Vol] on 03-06-2024 Monocytes (Bld) [#/Vol] 0.7 10 3/uL 0.3-0.8 [facility] Monocytes/100 WBC Auto (Bld) on 03-06-2024 Monocytes/100 WBC (Bld) 9.8 % 1.7-12.0 [facility] Myeloperoxidase Ab [Units/vo lume] in Serum by Immunoassayon 03-06-2024 Myeloperoxidase Ab IA Qn (S) <0.2 units 0.0-0.9 [facility] Neutrophils Auto (Bld) [#/Vo l]on 03-06-2024 Neutrophils (Bld) [#/Vol] 4.3 10 3/uL 1.4-6.5 [facility] Neutrophils/100 WBC Auto (Bl d)on 03-06-2024 Neutrophils/100 WBC (Bld) 56.2 % 43.0-75.0 [facility] No Panel Informationon 03-06 Aspergillus fumigatus Antibody Negative Neg:<1:1 [facility] Atypical p-ANCA <1:20 titer Neg:<1:20 [facility] Comment on above: The atypical pANCA p attern has been observed in asignificant percentage of patients with ulcerative colitis,primary sclerosing cholangitis and autoimmune hepatitis.Performed at: - [address] [id number] Director: Lupe Monaco MD, Phone: [phone] at: [facility] [address] [id number] Director: Ryan Ortega PhD, Phone: [phone] Eosinophils # (Auto) 0.1 10 3/uL 0.0-0.7 [facility] Immature Granulocyte # (Auto) 0.01 10 3/uL 0.00-0.03 [facility] Perinuclear ANCA (p-ANCA) Antibody <1:20 titer Neg:<1:20 [facility] Comment on above: The presence of posi tive fluorescence exhibiting P-ANCA orC-ANCA patterns alone is not specific for the diagnosis ofWegener's Granulomatosis (WG) or microscopic polyangiitis.Decisions about treatment should not be based solely onANCA IFA results. The International ANCA Group Consensusrecommends follow up testing of positive sera with both WI-3 and MPO-ANCA enzyme immunoassays. As many as 5% serumsamples are positive only by EIA. Ref. AM J Clin [id number];111:507-513. Platelet mean volume Auto (B ld) [Entitic vol]on 03-06-2024 Platelet mean volume (Bld) [Entitic vol] 10.2 fL 9.5-13.5 [facility] Platelets Auto (Bld) [#/Vol] on 03-06-2024 Platelets (Bld) [#/Vol] 237 10 3/uL 150-450 [facility] Proteinase 3 Ab [Units/volum e] in Serum by Immunoassayon 03-06-2024 Proteinase 3 Ab IA Qn (S) <0.2 units 0.0-0.9 [facility] RBC Auto (Bld) [#/Vol]on RBC (Bld) [#/Vol] 4.77 10 6/uL 4.70-6.10 [facility] Serum Aspergillus flavus ant ibody detection by immunodiffusionon 03-06-2024 A. flavus Ab Immune diff Ql (S) Negative Neg:<1:1 [facility] Serum classic neutrophil cyt oplasmic antibody titer by immunofluorescenceon 03-06-2024 Neutrophil cytoplasmic Ab.classic IF (S) [Titer] <1:20 titer Neg:<1:20 [facility] Activated partial thrombopla stin time (aPTT) in platelet poor plasma by coagulation aon 01-18-2024 aPTT Coag (PPP) [Time] 24.1 s 22.3-36.2 [facility] Basophils Auto (Bld) [#/Vol] on 01-18-2024 Basophils (Bld) [#/Vol] 0.0 10 3/uL 0.0-0.1 [facility] Basophils/100 WBC Auto (Bld) on 01-18-2024 Basophils/100 WBC (Bld) 0.4 % 0.2-2.0 [facility] Eosinophils/100 WBC Auto (Bl d)on 01-18-2024 Eosinophils/100 WBC (Bld) 0.0 % 0.9-7.0 [facility] Erythrocyte distribution wid th Auto (RBC) [Ratio]on 01-18-2024 Erythrocyte distribution width (RBC) [Ratio] 11.7 % 11.0-15.0 [facility] Estimated glomerular filtrat ion rate (GFR) non- Americanon 01-18-2024 GFR/1.73 sq M.predicted among non-blacks MDRD (S/P/Bld) [Vol rate/Area] mL/min/{1.73_m2} >=60 [facility] Fibrin D-dimer [Presence] in Platelet poor plasma by Latex agglutinationon 01-18-2024 Fibrin D-dimer LA Ql (PPP) <0.19 mg/L FEU <=0.59 [facility] Comment on above: Increases in D-Dimer concentration observed withthromboembolic events can be variable due to localization,size, and age of the thrombus. Therefore, a thromboembolicevent cannot be diagnosed with certainty on the basis of thereference range. D-Dimers may also be elevated for a varietyof disorders including advanced age, , coronarydisease, cancer, liver disease, infection, inflammation,hematoma, DIC, trauma, post-surgery, diabetes, thrombolyticor anticoagulant therapy, stress, and generalizedhospitalization. Globulin Calc (S) [Mass/Vol] on 01-18-2024 Globulin (S) [Mass/Vol] 3.3 g/dL [facility] Hematocrit Auto (Bld) [Volum e fraction]on 01-18-2024 Hematocrit (Bld) [Volume fraction] 44.1 % 42.0-54.0 [facility] Hemoglobin [Mass/volume] in Bloodon 01-18-2024 Hemoglobin (Bld) [Mass/Vol] 15.4 g/dL 14.0-18.0 [facility] INR in Platelet poor plasma by Coagulation assayon 01-18-2024 INR Coag (PPP) [Relative time] {INR} [facility] Comment on above: DESIRED INR:2.0-3.0 CONDITIONS NOT LISTED BELOW2.5-3.5 FOR PROSTHETIC HEART VALVE REPLACEMENT2.5-3.5 RECURRENT THROMBOSIS Laboratory - Chemistry and C hemistry - challengeon 01-18-2024 Albumin [Mass/Vol] 4.3 g/dL 3.4-5.0 [facility] ALP [Catalytic activity/Vol] 73 U/L 46-116 [facility] ALT [Catalytic activity/Vol] 125 U/L 16-63 [facility] AST [Catalytic activity/Vol] 26 U/L 15-37 [facility] Bilirubin [Mass/Vol] 0.5 mg/dL 0.2-1.0 [facility] Calcium [Mass/Vol] 9.1 mg/dL 8.5-10.1 [facility] Chloride [Moles/Vol] 100 mmol/L 98-107 [facility] CO2 [Moles/Vol] 25.4 mmol/L 21.0-32.0 [facility] Creatinine [Mass/Vol] 1.22 mg/dL 0.70-1.30 [facility] GFR/1.73 sq M.predicted MDRD (S/P/Bld) [Vol rate/Area] mL/min/{1.73_m2} >=60 [facility] Glucose [Mass/Vol] 120 mg/dL 74-106 [facility] Natriuretic peptide B (Bld) [Mass/Vol] 59.0 pg/mL <=450.0 [facility] Potassium [Moles/Vol] 3.9 mmol/L 3.5-5.1 [facility] Protein [Mass/Vol] 7.6 g/dL 6.4-8.2 [facility] Sodium [Moles/Vol] 136 mmol/L 136-145 [facility] Urea nitrogen [Mass/Vol] 23.0 mg/dL 7.0-18.0 [facility] Urea nitrogen/Creatinine [Mass ratio] 18.9 mg/mg [facility] Laboratory - Hematology and Cell countson 01-18-2024 Immature granulocytes/100 WBC (Bld) 0.7 % 0.0-0.5 [facility] Leukocytes [#/volume] correc michael for nucleated erythrocytes in Blood by Automated counon 01-18-2024 WBC corrected for nucl RBC Auto (Bld) [#/Vol] 8.2 10 3/uL 4.0-11.0 [facility] Lymphocytes Auto (Bld) [#/Vo l]on 01-18-2024 Lymphocytes (Bld) [#/Vol] 1.3 10 3/uL 1.2-3.8 [facility] Lymphocytes/100 WBC Auto (Bl d)on 01-18-2024 Lymphocytes/100 WBC (Bld) 15.3 % 20.5-60.0 [facility] MCH Auto (RBC) [Entitic mass ]on 01-18-2024 MCH (RBC) [Entitic mass] 31.4 pg 25.9-34.0 [facility] MCHC Auto (RBC) [Mass/Vol]on 01-18-2024 MCHC (RBC) [Mass/Vol] 34.9 g/dL 29.9-35.2 [facility] MCV Auto (RBC) [Entitic vol] on 01-18-2024 MCV (RBC) [Entitic vol] 89.8 fL 80.0-94.0 [facility] Monocytes Auto (Bld) [#/Vol] on 01-18-2024 Monocytes (Bld) [#/Vol] 0.3 10 3/uL 0.3-0.8 [facility] Monocytes/100 WBC Auto (Bld) on 01-18-2024 Monocytes/100 WBC (Bld) 4.0 % 1.7-12.0 [facility] Neutrophils Auto (Bld) [#/Vo l]on 01-18-2024 Neutrophils (Bld) [#/Vol] 6.5 10 3/uL 1.4-6.5 [facility] Neutrophils/100 WBC Auto (Bl d)on 01-18-2024 Neutrophils/100 WBC (Bld) 79.6 % 43.0-75.0 [facility] No Panel Informationon 01-17 Venous Blood Partial Pressure CO2 35.1 mm[Hg] 40.0-52.0 [facility] Venous Blood pH 7.459 7.330-7.430 [facility] Eosinophils # (Auto) 0.0 10 3/uL 0.0-0.7 [facility] Immature Granulocyte # (Auto) 0.06 10 3/uL 0.00-0.03 [facility] Troponin I High Sensitivity 4.7 pg/mL 4.0-76.1 [facility] Comment on above: CUT-OFF POINTS HAVE BEEN ESTABLISHED BASED ON THE FOURTHUNIVERSAL DEFINITION OF MYOCARDIAL INFARCTION. THE UPPERREFERENCE LIMIT (URL) OF TROPONIN, DEFINED THE 99THPERCENTILE OF cTnI DISTRIBUTION IN A REFERENCE POPULATION,HAS BEEN CONFIRMED THE DECISION THRESHOLD FOR MIDIAGNOSIS.99TH PERCENTILE = 76.2 PG/MLNOTE: HIGH-SENSITIVITY TROPONIN ASSAY IS NOT INTENDED TO BEUSED IN ISOLATION BUT SHOULD BE INTERPRETED IN CONJUNCTIONWITH OTHER DIAGNOSTIC AND CLINICAL INFORMATION. Platelet mean volume Auto (B ld) [Entitic vol]on 01-18-2024 Platelet mean volume (Bld) [Entitic vol] 10.2 fL 9.5-13.5 [facility] Platelets Auto (Bld) [#/Vol] on 01-18-2024 Platelets (Bld) [#/Vol] 311 10 3/uL 150-450 [facility] Prothrombin time (PT)on 12-23 PT Coag (PPP) [Time] 9.8 s 9.0-11.6 [facility] RBC Auto (Bld) [#/Vol]on RBC (Bld) [#/Vol] 4.91 10 6/uL 4.70-6.10 [facility] Serum or plasma albumin/glob ulin mass ratioon 01-18-2024 Albumin/Globulin [Mass ratio] 1.3 {ratio} [facility] Serum or plasma anion gap de terminationon 01-18-2024 Anion gap [Moles/Vol] 14.5 mmol/L [facility] Potassiumon Potassium [Moles/Vol] 3.4 mmol/L Low 3.5-5.1 [facility] Comment on above: Result Comment: PERF ORMED BY: [place] [address] PATHOLOGIST ORACLE APPLICATION CONSULTANT DONTE WHITAKER M.D. Performed By: #### R FRED Cardoza #### [address] XR chest 2V*on 01-16-2024 XR chest 2V* [facility] Main [place] [address] [place] [address] XRay Report Signed Patient: Manuela Davila MR#: [id number] : 1990 Acct:[id number] Age/Sex: 33 / M ADM Date: 01/15/24 Loc: ER Room: Type: [facility] ER Attending Dr: Copies to: Sang Lovett [...] Leticia Gee M.D.01/16/2024 8:23 AM Dictation Location: [place] [address] Transcribed By: [facility] 01/16/24822 Dictated By: Leticia Gee MD 01/16/24822 Signed By: 01/16/24822 Normal [facility] Alanine aminotransferase [En zymatic activity/volume] in Serum or PlasmaOrdered By: Sang Lovett on 01-15-2024 ALT [Catalytic activity/Vol] 69 U/L 7-52 [facility] Albumin [Mass/volume] in Ser um or Plasma by Bromocresol green (BCG) dye binding methoOrdered By: Sang Lovett on 01-15-2024 Albumin BCG dye [Mass/Vol] 4.7 g/dL 3.5-5.7 [facility] Alkaline phosphatase [Enzyma tic activity/volume] in Serum or PlasmaOrdered By: Sang Lovett on 01-15-2024 ALP [Catalytic activity/Vol] 48 U/L 34-104 [facility] Aspartate aminotransferase [ Enzymatic activity/volume] in Serum or PlasmaOrdered By: Sang Lovett on 01-15-2024 AST [Catalytic activity/Vol] 31 U/L 13-39 [facility] B-Type Natriuretic Peptideon 01-15-2024 Natriuretic peptide B (Bld) [Mass/Vol] 23.0 pg/mL Normal 5-100 [facility] Comment on above: Result Comment: PERF ORMED BY: [place] [address] PATHOLOGIST ORACLE APPLICATION CONSULTANT DONTE WHITAKER M.D. Performed By: #### C BC, BNP, CK, HS TROP, CMP #### [address] Basophils Auto (Bld) [#/Vol] Ordered By: Sang Lovett on 01-15-2024 Basophils (Bld) [#/Vol] 0.1 10*3/uL 0.0-0.2 [facility] Basophils/100 WBC Auto (Bld) Ordered By: Sang Lovett on 01-15-2024 Basophils/100 WBC (Bld) 0.7 % . [facility] Bilirubin.total [Mass/volume ] in Serum or PlasmaOrdered By: Sang Lovett on 01-15-2024 Bilirubin [Mass/Vol] 0.5 mg/dL 0.3-1.0 [facility] Calcium [Mass/volume] in Ser um or PlasmaOrdered By: Sang Lovtet on 01-15-2024 Calcium [Mass/Vol] 10.0 mg/dL 8.6-10.3 [facility] Carbon dioxide, total [Moles /volume] in Serum or PlasmaOrdered By: Sang Lovett on 01-15-2024 CO2 [Moles/Vol] 25.3 mmol/L 21.0-31.0 [facility] Chloride [Moles/volume] in S jasvir or PlasmaOrdered By: Sang Lovett on 01-15-2024 Chloride [Moles/Vol] 103 mmol/L 98-107 [facility] Complete Blood Count Auto Di ffon 01-15-2024 Basophils (Bld) [#/Vol] 0.1 10*3/uL Normal 0.0-0.2 [facility] Comment on above: Result Comment: PERF ORMED BY: [place] [address] PATHOLOGIST ORACLE APPLICATION CONSULTANT DONTE WHITAKER M.D. Performed By: #### C BC, BNP, CK, HS TROP, CMP #### [address] Basophils/100 WBC (Bld) 0.7 % Normal . [facility] Comment on above: Performed By: #### C BC, BNP, CK, HS TROP, CMP #### [address] Eosinophils (Bld) [#/Vol] 0.0 10*3/uL Normal 0.0-0.45 [facility] Comment on above: Performed By: #### C BC, BNP, CK, HS TROP, CMP #### [address] Eosinophils/100 WBC (Bld) 0.1 % Normal . [facility] Comment on above: Performed By: #### C BC, BNP, CK, HS TROP, CMP #### [address] Erythrocyte distribution width (RBC) [Ratio] 12.8 % Normal 12.0-14.8 [facility] Comment on above: Performed By: #### C BC, BNP, CK, HS TROP, CMP #### [address] Hematocrit (Bld) [Volume fraction] 41.5 % Normal 38.8-50.0 [facility] Comment on above: Performed By: #### C BC, BNP, CK, HS TROP, CMP #### [address] Hemoglobin (Bld) [Mass/Vol] 14.4 g/dL Normal 13.0-17.0 [facility] Comment on above: Performed By: #### C BC, BNP, CK, HS TROP, CMP #### [address] Lymphocytes (Bld) [#/Vol] 2.5 10*3/uL Normal 1.00-4.8 [facility] Comment on above: Performed By: #### C BC, BNP, CK, HS TROP, CMP #### [address] Lymphocytes/100 WBC (Bld) 21.6 % Normal . [facility] Comment on above: Performed By: #### C BC, BNP, CK, HS TROP, CMP #### [address] MCH (RBC) [Entitic mass] 31.7 pg Normal 27.5-35.2 [facility] Comment on above: Performed By: #### C BC, BNP, CK, HS TROP, CMP #### [address] MCV (RBC) [Entitic vol] 91.5 fL Normal 83.5-101 [facility] Comment on above: Performed By: #### C BC, BNP, CK, HS TROP, CMP #### [address] Mean Corpuscular HGB Conc 34.6 g/dL Normal 32.5-35.6 [facility] Comment on above: Performed By: #### C BC, BNP, CK, HS TROP, CMP #### [address] Monocytes (Bld) [#/Vol] 1.0 10*3/uL High 0.0-0.8 [facility] Comment on above: Performed By: #### C BC, BNP, CK, HS TROP, CMP #### [place] [address] [place] Monocytes/100 WBC (Bld) 19.75 % Normal 0.00-20.00 [facility] Comment on above: Performed By: #### C BC, BNP, CK, HS TROP, CMP #### [place] [address] [place] Monocytes/100 WBC (Bld) 8.3 % Normal . [facility] Comment on above: Performed By: #### C BC, BNP, CK, HS TROP, CMP #### [address] Neutrophils (Bld) [#/Vol] 8.0 10*3/uL High 1.8-7.7 [facility] Comment on above: Performed By: #### C BC, BNP, CK, HS TROP, CMP #### [address] Neutrophils/100 WBC (Bld) 69.3 % Normal . [facility] Comment on above: Performed By: #### C BC, BNP, CK, HS TROP, CMP #### [place] [address] [place] NRBC% 0.1 /100{WBC} Normal 0-0.5 [facility] Comment on above: Performed By: #### C BC, BNP, CK, HS TROP, CMP #### [address] Platelet mean volume (Bld) [Entitic vol] 8.8 fL Normal 6.6-10.1 [facility] Comment on above: Performed By: #### C BC, BNP, CK, HS TROP, CMP #### [place] [address] [place] Platelets (Bld) [#/Vol] 281 10*3/uL Normal 150-450 [facility] Comment on above: Performed By: #### C BC, BNP, CK, HS TROP, CMP #### [place] [address] [place] RBC (Bld) [#/Vol] 4.54 10*6/uL Normal 3.90-5.60 [facility] Comment on above: Performed By: #### C BC, BNP, CK, HS TROP, CMP #### [address] WBC (Bld) [#/Vol] 11.6 10*3/uL High 4.1-10.5 [facility] Comment on above: Performed By: #### C BC, BNP, CK, HS TROP, CMP #### [address] Comprehensive Metabolic Pane sky 01-15-2024 Albumin [Mass/Vol] 4.7 g/dL Normal 3.5-5.7 [facility] Comment on above: Performed By: #### Wilfredo Cardoza #### [address] Albumin/Globulin [Mass ratio] 2.1 {ratio} Normal [facility] Comment on above: Performed By: #### Wilfredo Cardoza #### [address] ALP [Catalytic activity/Vol] 48 U/L Normal 34-104 [facility] Comment on above: Performed By: #### Wilfredo Cardoza #### [address] ALT [Catalytic activity/Vol] 69 U/L High 7-52 [facility] Comment on above: Performed By: #### Wilfredo Cardoza #### [address] Anion gap [Moles/Vol] Not performed Normal 6.0-15.0 [facility] Comment on above: Performed By: #### Wilfredo Cardoza #### [address] AST [Catalytic activity/Vol] 31 U/L Normal 13-39 [facility] Comment on above: Performed By: #### Wilfredo Cardoza #### [address] Bilirubin [Mass/Vol] 0.5 mg/dL Normal 0.3-1.0 [facility] Comment on above: Performed By: #### Wilfredo Cardoza #### [facility] [address] Calcium [Mass/Vol] 10.0 mg/dL Normal 8.6-10.3 [facility] Comment on above: Performed By: #### Wilfredo Cardoza #### [facility] [address] Chloride [Moles/Vol] 103 mmol/L Normal 98-107 [facility] Comment on above: Performed By: #### Wilfredo Cardoza #### [facility] [address] CO2 [Moles/Vol] 25.3 mmol/L Normal 21.0-31.0 [facility] Comment on above: Performed By: #### Wilfredo Cardoza #### [facility] [address] [place] [address] Creatinine [Mass/Vol] 1.00 mg/dL Normal 0.70-1.30 [facility] Comment on above: Performed By: #### Wilfredo Cardoza #### [facility] [address] [place] [address] Creatinine Clr Calc Pharmacy 118.10 [facility] Comment on above: Result Comment: PERF ORMED BY: [place] [address] PATHOLOGIST ORACLE APPLICATION CONSULTANT DONTE WHITAKER M.D. Performed By: #### Wilfredo Cardoza #### [facility] [address] [place] [address] [place] GFR/1.73 sq M.predicted MDRD (S/P/Bld) [Vol rate/Area] mL/min/{1.73_m2} [facility] Comment on above: Performed By: #### Wilfredo Cardoza #### [facility] [address] [place] [address] [place] Globulin (S) [Mass/Vol] 2.2 g/dL [facility] Comment on above: Performed By: #### Wilfredo Cardoza #### [facility] [address] [place] [address] [place] Glucose [Mass/Vol] 91 mg/dL Normal 70-100 [facility] Comment on above: Result Comment: [place] Glucose Reference Range is dependent on time and content of last meal. Glucose of more than 200 mg/dL in a nonstressed, ambulatory subject supports the diagnosis of Diabetes Mellitus. ADA recommended reference range Performed By: #### Wilfredo Cardoza #### [facility] [address] [place] [address] [place] Potassium Normal 3.5-5.1 [facility] Comment on above: Result Comment: Spec imen hemolyzed, redraw requested Performed By: #### Wilfredo Cardoza #### [place] [address] [place] Protein [Mass/Vol] 6.9 g/dL Normal 6.4-8.9 [facility] Comment on above: Performed By: #### Wilfredo Cardoza #### [facility] [address] [place] [address] [place] Sodium [Moles/Vol] 137 mmol/L Normal 136-145 [facility] Comment on above: Performed By: #### Wilfredo Cardoza #### [facility] [address] [place] [address] [place] Urea nitrogen [Mass/Vol] 17 mg/dL Normal 7-25 [facility] Comment on above: Performed By: #### Wilfredo Cardoza #### [facility] [address] [place], [place] [id number] [place] Creatine Kinaseon 01-15-2024 CK [Catalytic activity/Vol] 429 U/L High [facility] Comment on above: Performed By: #### Wilfredo Cardoza #### [facility] [address] [place], [place] [address] [place] Creatine kinase [Enzymatic a ctivity/volume] in Serum or PlasmaOrdered By: Sang Lovett on 01-15-2024 CK [Catalytic activity/Vol] 429 U/L [facility] Creatinine [Mass/volume] in Serum or PlasmaOrdered By: Sang Lovett on 01-15-2024 Creatinine [Mass/Vol] 1.00 mg/dL 0.70-1.30 [facility] ECG 12 lead ECGon 01-15-2024 ECG 12 lead ECG [facility] Main [place] [address] [place] [address] Electrocardiograph Report Signed Patient: Manuela Davila MR#: [id number] : 1990 Acct:[id number] Age/Sex: 33 / M ADM Date: 01/15/24 Loc: ER Room: Type: [facility] ER Attending Dr: Ordering Provider: Sang Lovett [...] ECGs available Confirmed by Sang Lovett DO ([id number]) on 01/15/2024 10:04:50 PM Referred By: Electronically Signed By:Sang Lovett DO Transcribed By: MUS Signed By Sang Lovett DO 4 2204 Normal [facility] Eosinophils Auto (Bld) [#/Vo l]Ordered By: Sang Lovett on 01-15-2024 Eosinophils (Bld) [#/Vol] 0.0 10*3/uL 0.0-0.45 [facility] Eosinophils/100 WBC Auto (Bl d)Ordered By: Sang Lovett on 01-15-2024 Eosinophils/100 WBC (Bld) 0.1 % . [facility] Erythrocyte distribution wid th Auto (RBC) [Ratio]Ordered By: Sang Lovett on 01-15-2024 Erythrocyte distribution width (RBC) [Ratio] 12.8 % 12.0-14.8 [facility] Globulin Calc (S) [Mass/Vol] Ordered By: Sang Lovett on 01-15-2024 Globulin (S) [Mass/Vol] 2.2 g/dL [facility] Glucose [Mass/volume] in Ser um or PlasmaOrdered By: Sang Lovett on 01-15-2024 Glucose [Mass/Vol] 91 mg/dL 70-100 [facility] Comment on above: ADA recommended refe rence rangeRandom Glucose Reference Range is dependent on time and content of last meal. Glucose of more than 200 mg/dL in a nonstressed, ambulatory subject supports the diagnosis of Diabetes Mellitus. Hematocrit Auto (Bld) [Volum e fraction]Ordered By: Sang Lovett on 01-15-2024 Hematocrit (Bld) [Volume fraction] 41.5 % 38.8-50.0 [facility] Hemoglobin [Mass/volume] in BloodOrdered By: Sang Lovett on 01-15-2024 Hemoglobin (Bld) [Mass/Vol] 14.4 g/dL 13.0-17.0 [facility] Leukocytes [#/volume] correc michael for nucleated erythrocytes in Blood by Automated counOrdered By: Sang Lovett on 01-15-2024 WBC corrected for nucl RBC Auto (Bld) [#/Vol] 11.6 10*3/uL 4.1-10.5 [facility] Lymphocytes Auto (Bld) [#/Vo l]Ordered By: Sang Lovett on 01-15-2024 Lymphocytes (Bld) [#/Vol] 2.5 10*3/uL 1.00-4.8 [facility] Lymphocytes/100 WBC Auto (Bl d)Ordered By: Sang Lovett on 01-15-2024 Lymphocytes/100 WBC (Bld) 21.6 % . [facility] MCH Auto (RBC) [Entitic mass ]Ordered By: Sang Lovett on 01-15-2024 MCH (RBC) [Entitic mass] 31.7 pg 27.5-35.2 [facility] MCHC Auto (RBC) [Mass/Vol]Or dered By: Sang Lovett on 01-15-2024 MCHC (RBC) [Mass/Vol] 34.6 g/dL 32.5-35.6 [facility] MCV Auto (RBC) [Entitic vol] Ordered By: Sang Lovett on 01-15-2024 MCV (RBC) [Entitic vol] 91.5 fL 83.5-101 [facility] Monocyte distribution width [Entitic volume] in Blood by AutomatedOrdered By: Sang Lovett on 01-15-2024 Monocyte distribution width Auto (Bld) [Entitic vol] 19.75 % 0.00-20.00 [facility] Monocytes Auto (Bld) [#/Vol] Ordered By: Sang Lovett on 01-15-2024 Monocytes (Bld) [#/Vol] 1.0 10*3/uL 0.0-0.8 [facility] Monocytes/100 WBC Auto (Bld) Ordered By: Sang Lovett on 01-15-2024 Monocytes/100 WBC (Bld) 8.3 % . [facility] Natriuretic peptide B [Mass/ Vol]Ordered By: Sang Lovett on 01-15-2024 Natriuretic peptide B (Bld) [Mass/Vol] 23.0 pg/mL 5-100 [facility] Neutrophils Auto (Bld) [#/Vo l]Ordered By: Sang Lovett on 01-15-2024 Neutrophils (Bld) [#/Vol] 8.0 10*3/uL 1.8-7.7 [facility] Neutrophils/100 WBC Auto (Bl d)Ordered By: Sang Lovett on 01-15-2024 Neutrophils/100 WBC (Bld) 69.3 % . [facility] No Panel InformationOrdered By: Sang Lovett on 01-15-2024 Estimated GFR (CKD-EPI) > 60.0 mL/Min [facility] Creatinine Clearance (Chem 118.10 [facility] Nucleated erythrocytes [Pres ence] in Blood by Automated countOrdered By: Sang Lovett on 01-15-2024 Nucleated RBC Auto Ql (Bld) 0.1 /100{WBC} 0-0.5 [facility] Platelet mean volume Auto (B ld) [Entitic vol]Ordered By: Sang Lovett on 01-15-2024 Platelet mean volume (Bld) [Entitic vol] 8.8 fL 6.6-10.1 [facility] Platelets Auto (Bld) [#/Vol] Ordered By: Sang Lovett on 01-15-2024 Platelets (Bld) [#/Vol] 281 10*3/uL 150-450 [facility] Potassium [Moles/volume] in Serum or PlasmaOrdered By: Sang Lovett on 01-15-2024 Potassium [Moles/Vol] 3.4 mmol/L 3.5-5.1 [facility] Protein [Mass/volume] in Ser um or PlasmaOrdered By: Sang Lovett on 01-15-2024 Protein [Mass/Vol] 6.9 g/dL 6.4-8.9 [facility] RBC Auto (Bld) [#/Vol]Ordere d By: Sang Lovett on 01-15-2024 RBC (Bld) [#/Vol] 4.54 10*6/uL 3.90-5.60 [facility] Serum or plasma albumin/glob ulin mass ratioOrdered By: Sang Lovett on 01-15-2024 Albumin/Globulin [Mass ratio] 2.1 {ratio} [facility] Serum or plasma anion gap de terminationOrdered By: Sang Lovett on 01-15-2024 Anion gap [Moles/Vol] TNP [facility] Comment on above: Test not performed Sodium [Moles/volume] in Ser um or PlasmaOrdered By: Sang Lovett on 01-15-2024 Sodium [Moles/Vol] 137 mmol/L 136-145 [facility] Troponin I High Sensitivityo n 01-15-2024 Troponin I High Sensitivity 4.7 pg/mL Normal 0.0-20.0 [facility] Comment on above: Result Comment: PERF ORMED BY: [place] [id number] PATHOLOGIST [employer]LE APPLICATION CONSULTANT DONTE WHITAKER M.D. Performed By: #### R FRED Cardoza #### [address] Troponin I.cardiac [Mass/vol ume] in Serum or Plasma by Detection limit <= 0.01 ng/Ordered By: Sang Lovett on 01-15-2024 Troponin I.cardiac DL <= 0.01 ng/mL [Mass/Vol] 4.7 pg/mL 0.0-20.0 [facility] Urea nitrogen [Mass/volume] in Serum or PlasmaOrdered By: Sang Rachell on 01-15-2024 Urea nitrogen [Mass/Vol] 17 mg/dL 7-25 [facility] WBC Auto (Bld) [#/Vol]Ordere d By: Sang Rachell on 01-15-2024 WBC (Bld) [#/Vol] 11.6 10*3/uL 4.1-10.5 [facility] Influenza virus B Ag [Presen ce] in Upper respiratory specimen by Rapid immunoassayon 01-13-2024 FLUBV Ag IA.rapid Ql (Nph) Negative [facility] No Panel Informationon 01-12 Influenza Type A (Rapid) Negative [facility] POC SARS CoV-2 Antigen Negative [facility] COVID + FLU Quick Testingon 11-21-2023 SARS-CoV-2 (COVID-19) RNA DANILO+probe Ql (Unsp spec) Negative [facility] Other COVID + FLU Quick Testing Negative [facility] Other Quick Strepon 11-21-2023 S. pyogenes Org specific cx Ql (Throat) Negative [facility] Other Quick Strep [facility] Other Lab Reportson 10-10-2023 Lab Reports [id number] .00TIFF Normal [facility] Ambulatory Visit Summaryon 1 11-28-2022 Ambulatory Visit Summary MANUELA DAVILA :1990 Visit Date:09/27/2023 Ambulatory Visit Instructions Your Diagnosis Kidney stone Ureteral stone Tests Performed Urnls Dip Stick Auto w/o Microscopy POC 55735 Your Care Team Attending Physician - VERO TOLLIVER PA-C Primary Care Physician - WILY SOLIS DO This Is Your Medications List Contact [...] PERSON, Mina Nam Where: [facility] Patient Educationon 09-27-20 Patient Education [...] ? 8 oz (237 mL) of milk, calcium-fortifiednon- dairy milk, and calcium-fortifiedfrui t juice. Calcium-fortified means that calcium has been [...] Spinach (cooked), rhubarb, beets, sweet potatoes, and American chard. ? Peanuts. ? Potato chips, zambian fries, and baked potatoes with skin on. ? Nuts and nut products. ? Chocolate. ? If you regularly take a diuretic medicine, make sure to eat at least 1 or 2 servings of fruits or vegetables that are high in potassium each day. These include: ? Avocado. ? Banana. ? [place], prune, carrot, or tomato juice. ? Baked [...] fish oil, or vitamin B6. ? Take bzes-jht-rtseksz and prescription medicines only as told by your health care provider. These include supplements. What foods sh (more content not included)... Normal [facility] Urology Office/Clinic Noteon 09-27-2023 Urology Office/Clinic Note Chief Complaint Review [facility] HPI Staff [facility] pt Last seen in our office by BRET 07/25/23 DX: Ureteral & Renal Stone S/P [...] See #1. Follow-up With When Contact Information VERO TOLLIVER PA-C, URL [address] [place] [id number] Additional Instructions: has f/u with [facility] 02/14/2024 [...] Protein Urine Dipstick: Negative (09/27/23 11:30:00) Specific [place]once Urine Dipstick: 1.020 (09/27/23 11:30:00) Urine Appearance Urine Dipstick: Clear (09/27/23 11:30:00) Urine Color Urine Dipstick: Yellow (09/27/23 11:30:00) Urobilinogen Urine Dipstick: Normal 0.2-1 EU/dl (09/27/23 11:30:00) pH Urine Dipstick: 6 (09/27/23 11:30:00) Normal [facility] Comment on above: Result Comment: Elec tronically Signed By: VERO TOLLIVER PA-C\.br\Date and Time Signed: 09/27/23 12:27 EST\.br\Electronically Co-Signed By: Carissa Lind\.br\Date and Time Co-Signed: 09/27/23 12:17 EST Lab Report[facility] 09-01-2023 Lab Reports [id number] .00TIFF Normal [facility] Lab Reportson 08-18-2023 Lab Reports [id number] .00TIFF Normal [facility] Formson 08-16-2023 Forms [id number] .00TIFF Normal [facility] Pathology Noteon 08-12-2023 Pathology Note [id number]#1 .00TIFF Normal [facility] Operative Reporton Operative Report [id number] .00TIFF Normal [facility] RAD - MISCon 08-09-2023 RAD - MISC [id number]#1 .00TIFF Normal [facility] RAD - MISC [id number] .00TIFF Normal [facility] Calculi, Urinaryon Ca Oxalate Dihydrate 60 % Normal . [facility] Comment on above: Performed By: #### C ALCULI #### [facility] , Ca Oxalate Monohydrate 35 % Normal . [facility] Comment on above: Performed By: #### C ALCULI #### [facility] , Color (U) Brown Normal . [facility] Comment on above: Performed By: #### C ALCULI #### [facility] , Comment1 Normal . [facility] Comment on above: Result Comment: Calc ium phosphate (hydroxyl form) includes hydroxyapatite, amorphous calcium phosphate, and whitlockite. Hydroxyapatite is the most common of the calcium phosphate salts found in human kidney stones. Performed By: #### C ALCULI #### [facility] , Comment: Normal . [facility] Comment on above: Result Comment: Montez meyer questions regarding Calculi Analysis contact [email or web address] at: [phone]. Performed By: #### C ALCULI #### [facility] , Composition Normal . [facility] Comment on above: Result Comment: Perc entage (Represents the % composition) Performed By: #### C ALCULI #### [facility] , Disclaimer: Normal . [facility] Comment on above: Result Comment: This test was developed and its performance characteristics determined by [employer]. It has not been cleared or approved by the Food and Drug Administration. Performed at: [email or web address] [place] [id number] [employer] Sales Manager: Coleman Vargas PhD, Phone: [phone] Performed By: #### C ALCULI #### [facility] , Hydroxyapatite 5 % Normal . [facility] Comment on above: Performed By: #### C ALCULI #### [facility] , Note Normal . [facility] Comment on above: Result Comment: Calc jodi report will follow via computer, mail or dealer sales manager delivery. PERFORMED BY: [address] [place] [address] PATHOLOGIST ORACLE APPLICATION CONSULTANT DONTE WHITAKER M.D. Performed By: #### C ALCULI #### [facility] , Photo Normal . [facility] Comment on above: Result Comment: Phot ograph will follow under a separate cover Performed By: #### C ALCULI #### [facility] , Size 4x3 Normal . [facility] Comment on above: Result Comment: Mult iple pieces received. Dimensions of the largest piece reported. Performed By: #### C ALCULI #### [facility] , Source Normal . [facility] Comment on above: Result Comment: Righ t Kidney Performed By: #### C ALCULI #### [facility] , Weight 28 Normal . [facility] Comment on above: Performed By: #### C ALCULI #### [facility] , [place] urethrocystogram retroon 08-08-2023 [place] urethrocystogram retro [facility] Main [place] [address] [place] [address] Fluoroscopy Report Signed Patient: Manuela Davila MR#: [id number] : 1990 Acct:[id number] Age/Sex: 32 / M ADM Date: 08/08/23 Loc: [place] Room: Type: [facility] Attending Dr: Mina Baez MD [...] Elvira Ramos M.D.08/08/2023 4:54 PM Dictation Location: [place] [address] Transcribed By: [facility] 08/08/23 4371 Dictated By: Elvira Ramos II, MD 08/08/231650 Signed By: 08/08/231653 [facility] 08-08-2023 L - -------- Specimen: [id number] Received: 08/09/23 Status: MARGARET Vega Num: [id number] Spec Type: Surgical Subm Dr: Mina Baez MD Tissues: A Urinary Calculus (RT KIDNEY STONE) Procedures: Level 1 Gross -------- Age/ Patient Sex Location Account Attending Physician -------- Manuela Davila 32/M [place] [id number] Mina Baez MD -------- SPEC NUM: [id number] RECD: 08/09/23 STATUS: MARGARET BAUMANAlanna NUM: [id number] IRINA: 08/08/23 [facility] DR: Mina Baez MD ENTERED: 08/09/[address] [facility] DR: SPEC TYPE: Surgical DEPT: S ORDERED: [...] chemical analysis. Gross examination only. CPT Codes 99356 -------- -------- Specimen: [id number] Received: 08/09/23 Status: MARGARET Baumanalanna Num: [id number] Spec Type: Surgical Subm Dr: Mina Baez MD Tissues: A Urinary Calculus (RT KIDNEY STONE) Procedures: Level 1 Gross -------- Patient: Manuela Davila [id number] (Continued) -------- Signed (signature on file) Kevin Rodríguez MD 08/10/23 1348 Normal [facility] XR KUBon 08-08-2023 [place] [address] XRay Report Signed Patient: Manuela Davila MR#: [id number] : 1990 Acct:[id number] Age/Sex: 32 / M ADM Date: 08/08/23 Loc: [place] Room: Type: [facility] Attending Dr: Mina Baez MD [...] Leticia Gee M.D.08/08/2023 3:07 PM Dictation Location: [place] [address] Transcribed By: [facility] 08/08/23 9207 Dictated By: Leticia Gee MD 08/08/23 1504 Signed By: 08/08/23 1507 [facility] Insurance Correspondenceon 1 Insurance Correspondence [id number] 1.00TIFF Normal [facility] RAD - MISCon 08-01-2023 RAD - MISC [id number] .00TIFF Normal [facility] RAD - MISCon 07-27-2023 RAD - MISC [id number] .00CD:[address] [facility] [place] urethrocystogram retroon 07-26-2023 [place] urethrocystogram retro [facility] [place] [address] Fluoroscopy Report Signed Patient: Manuela Davila MR#: [id number] : 1990 Acct:[id number] Age/Sex: 32 / M ADM Date: 07/25/23 Loc: [place] Room: Type: [facility] Attending Dr: Mina Baez MD Copies to: [...] Dutch Nuñez M.D.07/26/2023 9:28 AM Dictation Location: [facility] Transcribed By: [facility] 07/26/23927 Dictated By: Dutch Nuñez DO 07/26/23926 Signed By: 07/26/23927 [facility] Operative Reporton Operative Report [id number] .00CD:[address] [facility] Ambulatory Visit Summaryon 1 Ambulatory Visit Summary MANUELA DAVILA :1990 Visit Date:07/25/2023 Ambulatory Visit Instructions Your Diagnosis Ureteral stone Tests Performed Urnls Dip Stick Auto w/o Microscopy POC 91371 Your Care Team Attending Physician - Mina [...] Mina BAEZ MD, URL When: Where: [address] [place], [place] [id number]- Medications What When Instructions Unchanged valacyclovir (valacyclovir 1 g Tab) Contact prescribing physician if questions or concerns Test Results Urnls Dip Stick Auto w/o Microscopy POC 83086 (07/25/2023) Bilirubin Urine Dipstick - Negative Blood Urine Dipstick - Trace-lysed Glucose Urine Dipstick - Negative Ketones Urine Dipstick - Negative Leukocytes Urine Dipstick - Negative Nitrite Urine Dipstick - Negative Protein Urine Dipstick - Negative Specific Ponce Urine Dipstick - >=1.030 Urine Appearance Urine [...] ? 8 oz (237 mL) of milk, calcium-fortifiednon- dairy milk, and calcium-fortifiedfrui t juice. Calcium-fortified means that calcium has been [...] These include: (more content not included)... Normal [facility] ED Note-Physicianon 07-25-20 ED Note-Physician [id number] .00CD:[address] [facility] Formson 07-25-2023 Forms [id number] .00CD:[address] [facility] Patient Educationon 07-25-20 Patient Education Nephrology [...] ? 8 oz (237 mL) of milk, calcium-fortifiednon- dairy milk, and calcium-fortifiedfrui t juice. Calcium-fortified means that calcium has been [...] Spinach (cooked), rhubarb, beets, sweet potatoes, and American chard. ? Peanuts. ? Potato chips, zambian fries, and baked potatoes with skin on. ? Nuts and nut products. ? Chocolate. ? If you regularly take a diuretic medicine, make sure to eat at least 1 or 2 servings of fruits or vegetables that are high in potassium each day. These include: ? Avocado. ? Banana. ? [place], prune, carrot, or tomato juice. ? Baked [...] fish oil, or vitamin B6. ? Take punb-cxn-myhzfom and prescription medicines only as told by your health care provider. These include supplements. What foods should I limit? Limit your in (more content not included)... Normal [facility] RAD - MISCon 07-25-2023 RAD - MIS [id number] .00CD:[address] [facility] Urology Office/Clinic Noteon 07-25-2023 Urology Office/Clinic Note Chief Complaint Pt is here for [facility] f/u HPI Staff Manuela is a 32 y.o. male here for [facility] follow up for kidney stones w/ KUB. Pt presented to [facility] on 07/19/23 for RT flank pain. [...] (N20.1: Calculus of ureter) Pt presented to [facility] on 07/19/23 for RT flank pain. [...] Information NESTOR PERSON, Mina Nam, URL [address] [address]- Additional Instructions: Sched Cysto with retro Stent Placement w/pos ureteroscopy Regina (more content not included)... Normal [facility] Comment on above: Result Comment: Elec tronically Signed By: Mina BAEZ MD\.br\Date and Time Signed: 07/25/23 09:50 EDT\.br\Electronically Co-Signed By: Lala Galvan\.br\Date and Time Co-Signed: 07/25/23 09:35 EDT XR KUBon 07-25-2023 XR KUB [facility] Main [place] [address] [place] [address] XRay Report Signed Patient: Manuela Davila MR#: [id number] : 1990 Acct:[id number] Age/Sex: 32 / M ADM Date: 07/25/23 Loc: [place] Room: Type: [facility] Attending Dr: Mina Baez MD [...] Leticia Gee M.D.07/25/2023 4:58 PM Dictation Location: [place] [address] Transcribed By: [facility] 07/25/23 5216 Dictated By: Leticia Gee MD 07/25/23 165 Signed By: 07/25/23 165 [facility] XR KUB [facility] Main [place] [address] [place], [place] [address] XRay Report Signed Patient: Manuela Davila MR#: [id number] : 1990 Acct:[id number] Age/Sex: 32 / M ADM Date: 07/25/23 Loc: XD Room: Type: [facility] Attending Dr: Mina Baez MD Copies [...] Leticia Gee M.D.07/25/2023 12:49 PM Dictation Location: [place] [address] Transcribed By: [facility] 07/25/23 1249 Dictated By: Leticia Gee MD 07/25/23 1246 Signed By: 07/25/23 1249 [facility] Alanine aminotransferase [En zymatic activity/volume] in Serum or PlasmaOrdered By: Aracelis Robertson on 07-19-2023 ALT [Catalytic activity/Vol] 54 U/L [facility] Albumin [Mass/volume] in Ser um or Plasma by Bromocresol green (BCG) dye binding methoOrdered By: Aracelis Robertson on 07-19-2023 Albumin BCG dye [Mass/Vol] 4.8 g/dL 3.5-5.7 [facility] Alkaline phosphatase [Enzyma tic activity/volume] in Serum or PlasmaOrdered By: Aracelis Robertson on 07-19-2023 ALP [Catalytic activity/Vol] 55 U/L 34-104 [facility] Aspartate aminotransferase [ Enzymatic activity/volume] in Serum or PlasmaOrdered By: Aracelis Robertson on 07-19-2023 AST [Catalytic activity/Vol] 21 U/L 13-39 [facility] Automated erythrocytes count in urine sediment (number/area)Ordered By: PROVIDER TEMP on 07-19-2023 RBC Auto (Urine sed) [#/Area] Innumerable [HPF] 0-4 [facility] Automated leukocytes count i n urine sediment (number/area)Ordered By: PROVIDER TEMP on 07-19-2023 WBC Auto (Urine sed) [#/Area] 1-2 [HPF] 0-4 [facility] Basic Metabolic Panelon 06-25 Anion gap [Moles/Vol] 10.5 mmol/L Normal 6.0-15.0 [facility] Comment on above: Performed By: #### B MP, HEPATIC, CBC, LIPASE #### [facility] [address] [place] [address] [place] Calcium [Mass/Vol] 10.2 mg/dL Normal 8.6-10.3 [facility] Comment on above: Performed By: #### B MP, HEPATIC, CBC, LIPASE #### [facility] [address] [place] [id number] [place] Chloride [Moles/Vol] 103 mmol/L Normal 98-107 [facility] Comment on above: Performed By: #### B MP, HEPATIC, CBC, LIPASE #### [facility] [address] [place] [id number] [place] CO2 [Moles/Vol] 29.2 mmol/L Normal 21.0-31.0 [facility] Comment on above: Performed By: #### B MP, HEPATIC, CBC, LIPASE #### [facility] [address] [place] [id number] [place] Creatinine [Mass/Vol] 0.99 mg/dL Normal 0.70-1.30 [facility] Comment on above: Performed By: #### B MP, HEPATIC, CBC, LIPASE #### [place] [address] [place] Creatinine Clr Calc Pharmacy 115.43 [facility] Comment on above: Performed By: #### B MP, HEPATIC, CBC, LIPASE #### [place] [address] [place] GFR/1.73 sq M.predicted MDRD (S/P/Bld) [Vol rate/Area] mL/min/{1.73_m2} [facility] Comment on above: Performed By: #### B MP, HEPATIC, CBC, LIPASE #### [address] Glucose [Mass/Vol] 105 mg/dL High 70-100 [facility] Comment on above: Result Comment: [place] Glucose Reference Range is dependent on time and content of last meal. Glucose of more than 200 mg/dL in a nonstressed, ambulatory subject supports the diagnosis of Diabetes Mellitus. ADA recommended reference range Performed By: #### B MP, HEPATIC, CBC, LIPASE #### [address] Potassium [Moles/Vol] 3.7 mmol/L Normal 3.5-5.1 [facility] Comment on above: Performed By: #### B MP, HEPATIC, CBC, LIPASE #### [address] Sodium [Moles/Vol] 139 mmol/L Normal 136-145 [facility] Comment on above: Performed By: #### B MP, HEPATIC, CBC, LIPASE #### [address] Urea nitrogen [Mass/Vol] 12 mg/dL Normal 7-25 [facility] Comment on above: Performed By: #### B MP, HEPATIC, CBC, LIPASE #### [place] [address] [place] Basophils Auto (Bld) [#/Vol] Ordered By: Aracelis Robertson on 07-19-2023 Basophils (Bld) [#/Vol] 0.1 10*3/uL 0.0-0.2 [facility] Basophils/100 WBC Auto (Bld) Ordered By: Aracelis Robertson on 07-19-2023 Basophils/100 WBC (Bld) 0.8 % . [facility] Bilirubin Test strip Ql (U)O rdered By: PROVIDER IMTIAZ on 07-19-2023 Bilirubin Ql (U) Negative Negative [facility] Bilirubin.direct [Mass/volum e] in Serum or PlasmaOrdered By: Aracelis Robertson on 07-19-2023 Bilirubin.direct [Mass/Vol] 0.10 mg/dL 0.03-0.18 [facility] Bilirubin.total [Mass/volume ] in Serum or PlasmaOrdered By: Aracelis Robertson on 07-19-2023 Bilirubin [Mass/Vol] 0.6 mg/dL 0.3-1.0 [facility] CT abdomen pelvis wo conon 0 07-19-2023 CT abdomen pelvis wo con [facility] [place] [address] CT Scan Report Signed Patient: Manuela Davila MR#: [id number] : 1990 Acct:[id number] Age/Sex: 32 / M ADM Date: 07/19/23 Loc: ER Room: Type: [facility] ER Attending Dr: Copies to: [...] Elvira Ramos M.D.07/19/2023 7:42 PM Dictation Location: [place] [address] Transcribed By: [facility] 07/19/231941 Dictated By: Elvira Ramos II, MD 07/19/231935 Signed By: 07/19/231941 Normal [facility] Calcium [Mass/volume] in Ser um or PlasmaOrdered By: Aracelis Robertson on 07-19-2023 Calcium [Mass/Vol] 10.2 mg/dL 8.6-10.3 [facility] Carbon dioxide, total [Moles /volume] in Serum or PlasmaOrdered By: Aracelis Robertson on 07-19-2023 CO2 [Moles/Vol] 29.2 mmol/L 21.0-31.0 [facility] Chloride [Moles/volume] in S jasvir or PlasmaOrdered By: Aracelis Robertson on 07-19-2023 Chloride [Moles/Vol] 103 mmol/L 98-107 [facility] Color Auto (U)Ordered By: CORI KITCHEN on 07-19-2023 Color (U) [place] Yellow [facility] Complete Blood Count Auto Di ffon 07-19-2023 Basophils (Bld) [#/Vol] 0.1 10*3/uL Normal 0.0-0.2 [facility] Comment on above: Result Comment: PERF ORMED BY: [place] [id number] PATHOLOGIST [employer]ACLE APPLICATION CONSULTANT DONTE WHITAKER M.D. Performed By: #### B MP, HEPATIC, CBC, LIPASE #### [address] Basophils/100 WBC (Bld) 0.8 % Normal . [facility] Comment on above: Performed By: #### B MP, HEPATIC, CBC, LIPASE #### [address] Eosinophils (Bld) [#/Vol] 0.1 10*3/uL Normal 0.0-0.45 [facility] Comment on above: Performed By: #### B MP, HEPATIC, CBC, LIPASE #### [address] Eosinophils/100 WBC (Bld) 1.6 % Normal . [facility] Comment on above: Performed By: #### B MP, HEPATIC, CBC, LIPASE #### [facility] [address] [place] [address] Erythrocyte distribution width (RBC) [Ratio] 12.7 % Normal 12.0-14.8 [facility] Comment on above: Performed By: #### B MP, HEPATIC, CBC, LIPASE #### [facility] [address] Hematocrit (Bld) [Volume fraction] 44.2 % Normal 38.8-50.0 [facility] Comment on above: Performed By: #### B MP, HEPATIC, CBC, LIPASE #### [facility] [address] [place] [address] Hemoglobin (Bld) [Mass/Vol] 15.2 g/dL Normal 13.0-17.0 [facility] Comment on above: Performed By: #### B MP, HEPATIC, CBC, LIPASE #### [address] Lymphocytes (Bld) [#/Vol] 2.1 10*3/uL Normal 1.00-4.8 [facility] Comment on above: Performed By: #### B MP, HEPATIC, CBC, LIPASE #### [address] Lymphocytes/100 WBC (Bld) 27.4 % Normal . [facility] Comment on above: Performed By: #### B MP, HEPATIC, CBC, LIPASE #### [address] MCH (RBC) [Entitic mass] 31.7 pg Normal 27.5-35.2 [facility] Comment on above: Performed By: #### B MP, HEPATIC, CBC, LIPASE #### [address] MCV (RBC) [Entitic vol] 92.3 fL Normal 83.5-101 [facility] Comment on above: Performed By: #### B MP, HEPATIC, CBC, LIPASE #### [address] Mean Corpuscular HGB Conc 34.3 g/dL Normal 32.5-35.6 [facility] Comment on above: Performed By: #### B MP, HEPATIC, CBC, LIPASE #### [address] Monocytes (Bld) [#/Vol] 0.6 10*3/uL Normal 0.0-0.8 [facility] Comment on above: Performed By: #### B MP, HEPATIC, CBC, LIPASE #### [address] Monocytes/100 WBC (Bld) 16.55 % Normal 0.00-20.00 [facility] Comment on above: Performed By: #### B MP, HEPATIC, CBC, LIPASE #### [address] Monocytes/100 WBC (Bld) 7.1 % Normal . [facility] Comment on above: Performed By: #### B MP, HEPATIC, CBC, LIPASE #### [facility] [address] Neutrophils (Bld) [#/Vol] 4.9 10*3/uL Normal 1.8-7.7 [facility] Comment on above: Performed By: #### B MP, HEPATIC, CBC, LIPASE #### [address] Neutrophils/100 WBC (Bld) 63.1 % Normal . [facility] Comment on above: Performed By: #### B MP, HEPATIC, CBC, LIPASE #### [address] NRBC% 0.1 /100{WBC} Normal 0-0.5 [facility] Comment on above: Performed By: #### B MP, HEPATIC, CBC, LIPASE #### [address] Platelet mean volume (Bld) [Entitic vol] 8.4 fL Normal 6.6-10.1 [facility] Comment on above: Performed By: #### B MP, HEPATIC, CBC, LIPASE #### [address] Platelets (Bld) [#/Vol] 244 10*3/uL Normal 150-450 [facility] Comment on above: Performed By: #### B MP, HEPATIC, CBC, LIPASE #### [place] [address] [place] RBC (Bld) [#/Vol] 4.79 10*6/uL Normal 3.90-5.60 [facility] Comment on above: Performed By: #### B MP, HEPATIC, CBC, LIPASE #### [place] [address] [place] WBC (Bld) [#/Vol] 7.8 10*3/uL Normal 4.1-10.5 [facility] Comment on above: Performed By: #### B MP, HEPATIC, CBC, LIPASE #### [facility] [address] [place] [address] [place] Creatinine [Mass/volume] in Serum or PlasmaOrdered By: Aracelis Robertson on 07-19-2023 Creatinine [Mass/Vol] 0.99 mg/dL 0.70-1.30 [facility] Dipstick and Microscopicon 0 07-19-2023 Appearance (U) Cloudy Critically abnormal Clear [facility] Comment on above: Order Comment: Name Collection Type:: Clean-Voided Midstream Performed By: #### A DDONUAPLUS #### [facility] [address] [place] [address] [place] Bacteria,Urine None Seen Normal None Seen [facility] Comment on above: Order Comment: Name Collection Type:: Clean-Voided Midstream Performed By: #### A DDONUAPLUS #### [facility] [address] [place] [address] [place] Bilirubin,Urine Negative Normal Negative [facility] Comment on above: Order Comment: Name Collection Type:: Clean-Voided Midstream Performed By: #### A DDONUAPLUS #### [facility] [address] [place] [address] [place] Color (U) [place] Critically abnormal Yellow [facility] Comment on above: Order Comment: Name Collection Type:: Clean-Voided Midstream Performed By: #### A DDONUAPLUS #### [facility] [address] [place] [address] [place] Glucose Ql (U) Normal Normal Normal [facility] Comment on above: Order Comment: Name Collection Type:: Clean-Voided Midstream Performed By: #### A DDONUAPLUS #### [facility] [address] [place] [address] [place] Hyaline Casts,Urine None Seen Normal 0-8 [facility] Comment on above: Order Comment: Name Collection Type:: Clean-Voided Midstream Result Comment: PERF ORMED BY: [place] [address] PATHOLOGIST ORACLE APPLICATION CONSULTANT DONTE WHITAKER M.D. Performed By: #### A DDONUAPLUS #### [facility] [address] [place] [address] [place] Ketones Ql (U) Negative Normal Negative [facility] Comment on above: Order Comment: Name Collection Type:: Clean-Voided Midstream Performed By: #### A DDONUAPLUS #### [address] Leukocyte esterase Test strip Ql (U) 1+ High Negative [facility] Comment on above: Order Comment: Name Collection Type:: Clean-Voided Midstream Performed By: #### A DDONUAPLUS #### [place] [address] [place] Nitrite,Urine Negative Normal Negative [facility] Comment on above: Order Comment: Name Collection Type:: Clean-Voided Midstream Performed By: #### A DDONUAPLUS #### [place] [address] [place] Occult Blood,Urine 3+ High Negative [facility] Comment on above: Order Comment: Name Collection Type:: Clean-Voided Midstream Result Comment: PERF ORMED BY: [place] [address] PATHOLOGIST ORACLE APPLICATION CONSULTANT DONTE WHITAKER M.D. Performed By: #### A DDONUAPLUS #### [place] [address] [place] pH (U) 5.5 [pH] Normal 5.0-9.0 [facility] Comment on above: Order Comment: Name Collection Type:: Clean-Voided Midstream Performed By: #### A DDONUAPLUS #### [place] [address] [place] Protein,Urine Trace High Negative [facility] Comment on above: Order Comment: Name Collection Type:: Clean-Voided Midstream Performed By: #### A DDONUAPLUS #### [place] [address] [place] RBC,Urine Innumerable High 0-4 [facility] Comment on above: Order Comment: Name Collection Type:: Clean-Voided Midstream Performed By: #### A DDONUAPLUS #### [facility] [address] [place] [address] Specificy [place],Urine 1.018 Normal 1.001-1.030 [facility] Comment on above: Order Comment: Name Collection Type:: Clean-Voided Midstream Performed By: #### A DDONUAPLUS #### [facility] [address] [place] [address] Squamous Epithelial Cell,Urine None Seen Normal 0-2 [facility] Comment on above: Order Comment: Name Collection Type:: Clean-Voided Midstream Performed By: #### A DDONUAPLUS #### [facility] [address] [place] [address] Urobilinogen,Urine Normal Normal Normal [facility] Comment on above: Order Comment: Name Collection Type:: Clean-Voided Midstream Performed By: #### A DDONUAPLUS #### [facility] [address] [place] [address] WBC,Urine 1-2 Normal 0-4 [facility] Comment on above: Order Comment: Name Collection Type:: Clean-Voided Midstream Performed By: #### A DDONUAPLUS #### [facility] [address] [place] [address] Eosinophils Auto (Bld) [#/Vo l]Ordered By: Aracelis Robertson on 07-19-2023 Eosinophils (Bld) [#/Vol] 0.1 10*3/uL 0.0-0.45 [facility] Eosinophils/100 WBC Auto (Bl d)Ordered By: Aracelis Robertson on 07-19-2023 Eosinophils/100 WBC (Bld) 1.6 % . [facility] Erythrocyte distribution wid th Auto (RBC) [Ratio]Ordered By: Aracelis Robertson on 07-19-2023 Erythrocyte distribution width (RBC) [Ratio] 12.7 % 12.0-14.8 [facility] Globulin Calc (S) [Mass/Vol] Ordered By: Aracelis Robertson on 07-19-2023 Globulin (S) [Mass/Vol] 2.1 g/dL [facility] Glucose [Mass/volume] in Ser um or PlasmaOrdered By: Aracelis Robertson on 07-19-2023 Glucose [Mass/Vol] 105 mg/dL 70-100 [facility] Comment on above: ADA recommended refe rence rangeRandom Glucose Reference Range is dependent on time and content of last meal. Glucose of more than 200 mg/dL in a nonstressed, ambulatory subject supports the diagnosis of Diabetes Mellitus. Hematocrit Auto (Bld) [Volum e fraction]Ordered By: Aracelis Robertson on 07-19-2023 Hematocrit (Bld) [Volume fraction] 44.2 % 38.8-50.0 [facility] Hemoglobin [Mass/volume] in BloodOrdered By: Aracelis Robertson on 07-19-2023 Hemoglobin (Bld) [Mass/Vol] 15.2 g/dL 13.0-17.0 [facility] Hepatic Panelon 07-19-2023 Albumin [Mass/Vol] 4.8 g/dL Normal 3.5-5.7 [facility] Comment on above: Performed By: #### B MP, HEPATIC, CBC, LIPASE #### [facility] [address] [place] [address] [place] Albumin/Globulin [Mass ratio] 2.3 {ratio} Normal [facility] Comment on above: Performed By: #### B MP, HEPATIC, CBC, LIPASE #### [facility] [address] [place] [id number] [place] ALP [Catalytic activity/Vol] 55 U/L Normal 34-104 [facility] Comment on above: Performed By: #### B MP, HEPATIC, CBC, LIPASE #### [facility] [address] [id number] [place] ALT [Catalytic activity/Vol] 54 U/L High 7-52 [facility] Comment on above: Performed By: #### B MP, HEPATIC, CBC, LIPASE #### [facility] [address] [place] [id number] [place] AST [Catalytic activity/Vol] 21 U/L Normal 13-39 [facility] Comment on above: Performed By: #### B MP, HEPATIC, CBC, LIPASE #### [facility] [address] Bilirubin [Mass/Vol] 0.6 mg/dL Normal 0.3-1.0 [facility] Comment on above: Performed By: #### B MP, HEPATIC, CBC, LIPASE #### [facility] [address] Bilirubin,Indirect 0.5 mg/dL Normal [facility] Comment on above: Performed By: #### B MP, HEPATIC, CBC, LIPASE #### [facility] [address] Bilirubin.indirect [Mass/Vol] 0.10 mg/dL Normal 0.03-0.18 [facility] Comment on above: Performed By: #### B MP, HEPATIC, CBC, LIPASE #### [facility] [address] Globulin (S) [Mass/Vol] 2.1 g/dL Normal [facility] Comment on above: Performed By: #### B MP, HEPATIC, CBC, LIPASE #### [facility] [address] Protein [Mass/Vol] 6.9 g/dL Normal 6.4-8.9 [facility] Comment on above: Performed By: #### B MP, HEPATIC, CBC, LIPASE #### [facility] [address] Ketones Auto test strip (U) [Mass/Vol]Ordered By: PROVIDER TEMP on 07-19-2023 Ketones (U) [Mass/Vol] Negative Negative [facility] - UrinalysisOrder ed By: PROVIDER TEMP on 07-19-2023 Hyaline casts LM Ql (Urine sed) None seen [LPF] 0-8 [facility] Leukocytes [#/volume] correc michael for nucleated erythrocytes in Blood by Automated counOrdered By: Aracelis Robertson on 07-19-2023 WBC corrected for nucl RBC Auto (Bld) [#/Vol] 7.8 10*3/uL 4.1-10.5 [facility] Lipaseon 07-19-2023 Lipase [Catalytic activity/Vol] 43.0 U/L Normal 11.0-82.0 [facility] Comment on above: Result Comment: PERF ORMED BY: [facility] [address] [place] [address] PATHOLOGIST ORACLE APPLICATION CONSULTANT DONTE WHITAKER M.D. Performed By: #### B MP, HEPATIC, CBC, LIPASE #### [facility] [address] Lipase [Enzymatic activity/v olume] in Serum or PlasmaOrdered By: Aracelis Robertson on 07-19-2023 Lipase [Catalytic activity/Vol] 43.0 U/L 11.0-82.0 [facility] Lymphocytes Auto (Bld) [#/Vo l]Ordered By: Aracelis Robertson on 07-19-2023 Lymphocytes (Bld) [#/Vol] 2.1 10*3/uL 1.00-4.8 [facility] Lymphocytes/100 WBC Auto (Bl d)Ordered By: Aracelis Robertson on 07-19-2023 Lymphocytes/100 WBC (Bld) 27.4 % . [facility] MCH Auto (RBC) [Entitic mass ]Ordered By: Aracelis Robertson on 07-19-2023 MCH (RBC) [Entitic mass] 31.7 pg 27.5-35.2 [facility] MCHC Auto (RBC) [Mass/Vol]Or dered By: Aracelis Robertson on 07-19-2023 MCHC (RBC) [Mass/Vol] 34.3 g/dL 32.5-35.6 [facility] MCV Auto (RBC) [Entitic vol] Ordered By: Aracelis Robertson on 07-19-2023 MCV (RBC) [Entitic vol] 92.3 fL 83.5-101 [facility] Monocyte distribution width [Entitic volume] in Blood by AutomatedOrdered By: Aracelis Robertson on 07-19-2023 Monocyte distribution width Auto (Bld) [Entitic vol] 16.55 % 0.00-20.00 [facility] Monocytes Auto (Bld) [#/Vol] Ordered By: Aracelis Robertson on 07-19-2023 Monocytes (Bld) [#/Vol] 0.6 10*3/uL 0.0-0.8 [facility] Monocytes/100 WBC Auto (Bld) Ordered By: Aracelis Robertson on 07-19-2023 Monocytes/100 WBC (Bld) 7.1 % . [facility] Neutrophils Auto (Bld) [#/Vo l]Ordered By: Aracelis Robertson on 07-19-2023 Neutrophils (Bld) [#/Vol] 4.9 10*3/uL 1.8-7.7 [facility] Neutrophils/100 WBC Auto (Bl d)Ordered By: Aracelis Robertson on 07-19-2023 Neutrophils/100 WBC (Bld) 63.1 % . [facility] Nitrite Test strip Ql (U)Ord ered By: PROVIDER TEMP on 07-19-2023 Nitrite Ql (U) Negative Negative [facility] No Panel InformationOrdered By: Aracelis Robertson on 07-19-2023 Estimated GFR (CKD-EPI) > 60.0 mL/Min [facility] Creatinine Clearance (Chem 115.43 [facility] Nucleated erythrocytes [Pres ence] in Blood by Automated countOrdered By: Aracelis Robertson on 07-19-2023 Nucleated RBC Auto Ql (Bld) 0.1 /100{WBC} 0-0.5 [facility] Platelet mean volume Auto (B ld) [Entitic vol]Ordered By: Aracelis Robertson on 07-19-2023 Platelet mean volume (Bld) [Entitic vol] 8.4 fL 6.6-10.1 [facility] Platelets Auto (Bld) [#/Vol] Ordered By: Aracelis Robertson on 07-19-2023 Platelets (Bld) [#/Vol] 244 10*3/uL 150-450 [facility] Potassium [Moles/volume] in Serum or PlasmaOrdered By: Aracelis Robertson on 07-19-2023 Potassium [Moles/Vol] 3.7 mmol/L 3.5-5.1 [facility] Protein Auto test strip (U) [Mass/Vol]Ordered By: PROVIDER TEMP on 09-26-2023 Protein (U) [Mass/Vol] Trace mg/dL Negative [facility] Protein [Mass/volume] in Ser um or PlasmaOrdered By: Aracelis Robertson on 07-19-2023 Protein [Mass/Vol] 6.9 g/dL 6.4-8.9 [facility] RBC Auto (Bld) [#/Vol]Ordere d By: Aracelis Robertson on 07-19-2023 RBC (Bld) [#/Vol] 4.79 10*6/uL 3.90-5.60 [facility] Serum or plasma albumin/glob ulin mass ratioOrdered By: Aracelis Robertson on 07-19-2023 Albumin/Globulin [Mass ratio] 2.3 {ratio} [facility] Serum or plasma anion gap de terminationOrdered By: Aracelis Robertson on 07-19-2023 Anion gap [Moles/Vol] 10.5 mmol/L 6.0-15.0 [facility] Serum or plasma non-glucuron idated bilirubin measurement (mass/volume)Ordered By: Aracelis Robertson on 07-19-2023 Bilirubin.indirect [Mass/Vol] 0.5 mg/dL [facility] Sodium [Moles/volume] in Ser um or PlasmaOrdered By: Aracelis Robertson on 07-19-2023 Sodium [Moles/Vol] 139 mmol/L 136-145 [facility] Specific gravity Auto test s trip (U) [Rel density]Ordered By: PROVIDER TEMP on 07-19-2023 Specific gravity (U) [Rel density] 1.018 1.001-1.030 [facility] Squamous epithelial cells de tection in urine sediment by light microscopyOrdered By: PROVIDER TEMP on 07-19-2023 Epithelial cells.squamous LM Ql (Urine sed) None seen [HPF] 0-2 [facility] Urea nitrogen [Mass/volume] in Serum or PlasmaOrdered By: Aracelis Robertson on 07-19-2023 Urea nitrogen [Mass/Vol] 12 mg/dL 7-25 [facility] Urine bacteria detection by automated methodOrdered By: PROVIDER TEMP on 07-19-2023 Bacteria Auto Ql (U) None seen None Seen [facility] Urine clarity by refractomet ry automatedOrdered By: PROVIDER TEMP on 07-19-2023 Clarity Refractometry automated (U) Cloudy Clear [facility] Urine glucose measurement by automated test strip (mass/volume)Ordered By: PROVIDER TEMP on 07-19-2023 Glucose Auto test strip (U) [Mass/Vol] Normal mg/dL Normal [facility] Urine hemoglobin detection b y automated test stripOrdered By: PROVIDER TEMP on 07-19-2023 Hemoglobin Auto test strip Ql (U) 3+ Negative [facility] Urine leukocyte esterase det ection by automated test stripOrdered By: PROVIDER TEMP on 07-19-2023 Leukocyte esterase Auto test strip Ql (U) 1+ Negative [facility] Urobilinogen Auto test strip (U) [Mass/Vol]Ordered By: PROVIDER TEMP on 07-19-2023 Urobilinogen (U) [Mass/Vol] Normal mg/dL Normal [facility] WBC Auto (Bld) [#/Vol]Ordere d By: Aracelis Robertson on 07-19-2023 WBC (Bld) [#/Vol] 7.8 10*3/uL 4.1-10.5 [facility] pH Auto test strip (U)Ordere d By: PROVIDER TEMP on 07-19-2023 pH (U) 5.5 [pH] 5.0-9.0 [facility] Quick Strepon 07-07-2023 S. pyogenes Org specific cx Ql (Throat) Negative [facility] [employer] Other Quick Strep [facility] [employer] Other SARS-CoV-2 (COVID-19) RNA NA A+probe Ql (Resp)on 07-07-2023 SARS-CoV-2 (COVID-19) RNA DANILO+probe Ql (Unsp spec) Negative [facility] [employer] Other CARDIAC ELVIRA ADMITon 023 CK [Catalytic activity/Vol] 168 U/L Normal 39-308 [facility] Comment on above: Performed By: #### B JENNIFER, HECTOR #### [facility] [address] [place] [address] Dr. Silvia De La Cruz CK.MB [Mass/Vol] 1.06 ng/mL Normal <=3.60 [facility] Comment on above: Performed By: #### B HECTOR RODRIGUEZ #### [facility] [address] [place] [address] Dr. Silvia De La Cruz HSTROP 5.7 pg/mL Normal 4.0-76.1 [facility] Comment on above: Result Comment: CUT- OFF POINTS HAVE BEEN ESTABLISHED BASED ON THE FOURTH UNIVERSAL DEFINITIONS OF MYOCARDIAL INFARCTION. THE UPPER REFERENCE LIMIT (URL) OF TROPONIN, DEFINED THE 99TH PERCENTILE OF cTnI DISTRIBUTION IN A REFERENCE POPULATION, HAS BEEN CONFIRMED THE DECISION THRESHOLD FOR [place] DIAGNOSIS. Performed By: #### B HECTOR RODRIGUEZ #### [facility] [address] [place] [address] Dr. Silvia De La Cruz MATT 38 ng/mL Normal 16-96 [facility] Comment on above: Performed By: #### B HECTOR RODRIGUEZ #### [facility] [address] [place] [address] Dr. Silvia De La Cruz CBC AUTO DIFFon 11-04-2022 BASO # 0.1 103/ul Normal 0.0-0.1 [facility] Comment on above: Performed By: #### C BC #### [facility] [address] [place] [address] Dr. Silvia De La Cruz Basophils/100 WBC (Bld) 1.0 % Normal 0.2-2.0 [facility] Comment on above: Performed By: #### C BC #### [facility] [address] [place] [address] Dr. Silvia De La Cruz EO # 0.3 103/ul Normal 0.0-0.7 [facility] Comment on above: Performed By: #### C BC #### [facility] [address] [place] [address] Dr. Silvia De La Cruz Eosinophils/100 WBC (Bld) 6.9 % Normal 0.9-7.0 [facility] Comment on above: Performed By: #### C BC #### [facility] [address] [place] [address] Dr. Silvia De La Cruz Erythrocyte distribution width (RBC) [Ratio] 11.4 % Normal 11.0-15.0 [facility] Comment on above: Performed By: #### C BC #### [facility] [address] [place] [address] Dr. Silvia De La Cruz Hematocrit (Bld) [Volume fraction] 40.3 % Critically low 42.0-54.0 [facility] Comment on above: Performed By: #### C BC #### [facility] [address] [place] [address] Dr. Silvia De La Cruz Hemoglobin (Bld) [Mass/Vol] 13.6 g/dL Critically low 14.0-18.0 [facility] Comment on above: Performed By: #### C BC #### [facility] [address] [place] [address] Dr. Silvia De La Cruz IG # 0.00 10e3/ul Normal 0.00-0.03 [facility] Comment on above: Performed By: #### C BC #### [facility] [address] [place] [address] Dr. Silvia De La Cruz IG % 0.0 % Normal 0.0-0.5 [facility] Comment on above: Performed By: #### C BC #### [facility] [address] [place] [address] Dr. Silvia De La Cruz LYMPH # 2.4 103/ul Normal 1.2-3.8 [facility] Comment on above: Performed By: #### C BC #### [facility] [address] [place] [address] Dr. Silvia De La Cruz Lymphocytes/100 WBC (Bld) 49.1 % Normal 20.5-60.0 [facility] Comment on above: Performed By: #### C BC #### [facility] [address] [place] [address] Dr. Silvia De La Cruz MANUAL DIFF REQ NO Normal [facility] Comment on above: Performed By: #### C BC #### [facility] [address] [place] [address] Dr. Silvia De La Cruz MCH (RBC) [Entitic mass] 31.1 pg Normal 25.9-34.0 [facility] Comment on above: Performed By: #### C BC #### [facility] [address] [place] [address] Dr. Silvia De La Cruz MCHC (RBC) [Mass/Vol] 33.7 g/dL Normal 29.9-35.2 [facility] Comment on above: Performed By: #### C BC #### [facility] [address] [place] [address] Dr. Silvia De La Cruz MCV (RBC) [Entitic vol] 92.0 fL Normal 80.0-94.0 [facility] Comment on above: Performed By: #### C BC #### [facility] [address] [place] [address] Dr. Silvia De La Cruz MONO # 0.6 103/ul Normal 0.3-0.8 [facility] Comment on above: Performed By: #### C BC #### [facility] [address] [place] [address] Dr. Silvia De La Cruz Monocytes/100 WBC (Bld) 12.3 % Critically high 1.7-12.0 [facility] Comment on above: Performed By: #### C BC #### [facility] [address] [place] [address] Dr. Silvia De La Cruz NEUT # 1.5 103/ul Normal 1.4-6.5 [facility] Comment on above: Performed By: #### C BC #### [facility] [address] [place] [address] Dr. Silvia De La Cruz Neutrophils/100 WBC (Bld) 30.7 % Critically low 43.0-75.0 [facility] Comment on above: Performed By: #### C BC #### [facility] [address] [place] [address] Dr. Silvia De La Cruz Platelet mean volume (Bld) [Entitic vol] 10.6 fL Normal 9.5-13.5 [facility] Comment on above: Performed By: #### C BC #### [facility] [address] [place] [address] Dr. Silvia De La Cruz PLT 259 103/ul Normal 150-450 [facility] Comment on above: Performed By: #### C BC #### [facility] [address] [place] [address] Dr. Silvia De La Cruz RBC 4.38 106/ul Critically low 4.70-6.10 [facility] Comment on above: Performed By: #### C BC #### [facility] [address] [address] [address] Silvia De La Cruz WBC 4.8 103/ul Normal 4.0-11.0 [facility] Comment on above: Performed By: #### C BC #### [facility] [address] [place] [address] Dr. Silvia De La Cruz D-DIMERon 11-04-2022 D-DIMER 0.36 mg/L FEU Normal <=0.59 [facility] Comment on above: Performed By: #### D DIM #### [facility] [address] [place] [address] Dr. Silvia De La Cruz D-DIMER COMMENTS SEE BELOW Normal [facility] Comment on above: Result Comment: Incr [...] hospitalization. Performed By: #### D DIM #### [facility] [address] [place] [address] Dr. Silvia De La Cruz PROF CHEM 8 (BAS METB)on Anion gap [Moles/Vol] 11.0 mmol/L Normal [facility] Comment on above: Performed By: #### B MP, CMADM #### [facility] [address] [place] [address] Dr. Silvia De La Cruz Calcium [Mass/Vol] 8.9 mg/dL Normal 8.5-10.1 [facility] Comment on above: Performed By: #### B JENNIFER, CMADM #### [facility] [address] [address] [address] Silvia De La Cruz Chloride [Moles/Vol] 101 mmol/L Normal 98-107 [facility] Comment on above: Performed By: #### B MP, CMADM #### [facility] [address] [address] [address] Silvia De La Cruz CO2 [Moles/Vol] 29.1 mmol/L Normal 21.0-32.0 [facility] Comment on above: Performed By: #### B JENNIFER, CMADM #### [facility] [address] [address] [address] Silvia De La Cruz Creatinine [Mass/Vol] 0.77 mg/dL Normal 0.70-1.30 [facility] Comment on above: Performed By: #### B JENNIFER, CMADM #### [facility] [address] [address] [address] Silvia De La Cruz EGFR-AF KYRGYZ >60 Normal >=60 [facility] Comment on above: Performed By: #### B JENNIFER, CMADM #### [facility] [address] [address] [address] Silvia De La Cruz EGFR-NON AF KYRGYZ >60 Normal >=60 [facility] Comment on above: Performed By: #### B JENNIFER, CMADM #### [facility] [address] [address] [address] Silvia De La Cruz Glucose [Mass/Vol] 102 mg/dL Normal 74-106 [facility] Comment on above: Performed By: #### B JENNIFER, CMADM #### [facility] [address] [address] [address] Silvia De La Cruz Potassium [Moles/Vol] 4.1 mmol/L Normal 3.5-5.1 [facility] Comment on above: Performed By: #### B JENNIFER, CMADM #### [facility] [address] [address] [address] Silvia De La Cruz Sodium [Moles/Vol] 137 mmol/L Normal 136-145 [facility] Comment on above: Performed By: #### B HECTOR RODRIGUEZ #### [facility] [address] [place], [place] [address] Dr. Silvia De La Cruz Urea nitrogen [Mass/Vol] 16.0 mg/dL Normal 7.0-18.0 [facility] Comment on above: Performed By: #### B HECTOR RODRIGUEZ #### [facility] [address] [place], [place] [address] Dr. Silvia De La Cruz Urea nitrogen/Creatinine [Mass ratio] 20.8 mg/mg Normal [facility] Comment on above: Performed By: #### B HECTOR RODRIGUEZ #### [facility] [address] [place], [place] [address] Dr. Silvia De La Cruz XR CHEST 1 Von 11-04-2022 XR CHEST 1 V EXAM: XR CHEST 1 V HISTORY: CHEST PAIN, UNSPECIFIED COMPARISON: None available at the time of dictation. TECHNIQUE: Chest single view. FINDINGS: Lines/tubes/devices: EKG leads overlie the chest. No indwelling lines are seen. Cardiomediastinum: Cardiac silhouette appears normal in size. Unremarkable mediastinal silhouette. Vasculature: No increased pulmonary vasculature. Lungs/pleura: No consolidation, sizeable effusion, or visible pneumothorax. Bones/soft tissues: Bony thorax appears grossly intact as seen. IMPRESSION: No acute cardiopulmonary findings. Electronically authenticated by: LEONA JACK Date: 2022-11-04 00:16 Normal [facility] UR Drugs of Abuse Panelon Drug Screen Comment see below Normal [facility] Comment on above: Result Comment: This method is a screening test to detect only these drug classes as part of a medical workup. Confirmatory testing by another method should be ordered if clinically indicated. Performed By: #### U DRGS #### [facility] [address] [place] [address] UR Amphetamines Screen Negative Normal Negative < [facility] Comment on above: Performed By: #### U DRGS #### [facility] [address] [place] [address] UR Barbiturates Screen Negative Normal Negative < [facility] Comment on above: Performed By: #### U DRGS #### [facility] [address] [place] [address] UR Benzo Screen Positive Abnormal Negative < [facility] Comment on above: Performed By: #### U DRGS #### [facility] [address] [place] [address] UR Cannabinoids Screen Positive Abnormal Negative < [facility] Comment on above: Performed By: #### U DRGS #### [facility] [address] [place] [address] UR Cocaine Screen Negative Normal Negative < [facility] Comment on above: Performed By: #### U DRGS #### [facility] [address] [place] [address] UR Fentanyl Screen Positive Abnormal Negative < [facility] Comment on above: Performed By: #### U DRGS #### [facility] [address] [place] [address] UR Methadone Screen Negative Normal Negative < [facility] Comment on above: Performed By: #### U DRGS #### [facility] [address] [place] [address] UR Opiates Screen Negative Normal Negative < [facility] Comment on above: Performed By: #### U DRGS #### [facility] [address] [place] [address] UR Oxycodone Screen Negative Normal Negative < [facility] Comment on above: Performed By: #### U DRGS #### [facility] [address] [place] [address] UR PCP Screen Negative Normal Negative < [facility] Comment on above: Performed By: #### U DRGS #### [facility] [address] [place] [address] UR Propoxyphene Screen Negative Normal Negative < [facility] Comment on above: Performed By: #### U DRGS #### [facility] [address] [place] [address] Urine Drug Screenon 10-29-20 22 Amphetamine Screen, Urine Negative Negative <1000 ng/mL [facility] Barbiturate Screen, Ur Negative Negat kira < 200 ng/mL [facility] Benzodiazepine Screen, Urine Positive Abnormal Negative < 200 ng/mL [facility] Cannabinoid Scrn, Ur Positive Abnormal Negativ e < 50 ng/mL [facility] Cocaine Metabolite Screen, Urine Negative Negative < 300 ng/mL [facility] Drug Screen Comment: see below [facility] Comment on above: This method is a scr eening test to detect only these drug classes as part of a medical workup. Confirmatory testing by another method should be ordered if clinically indicated. FENTANYL SCREEN, URINE Positive Abnormal Negat kria < 50 ng/mL [facility] Interpretation and review of laboratory results Abnormal [facility] Methadone Screen, Urine Negative Negative <300 ng/mL [facility] Opiate Scrn, Ur Negative Negative < 300 ng/mL [facility] Oxycodone Urine Negative Negative <10 0 ng/mL [facility] PCP Screen, Urine Negative Negative < 25 ng/mL [facility] Propoxyphene Scrn, Ur Negative Negati ve <300 ng/mL [facility] POC Influenza A/B and SARS A ntigen manually resultedOrdered By: Skip Sarmiento on 08-02-2022 FLUAV Ag IA.rapid Ql (Nph) Negative Negative [facility] FLUBV Ag IA.rapid Ql (Nph) Negative Negative [facility] INTERNAL CONTROLS Acceptable [facility] SARS-CoV+SARS-CoV-2 (COVID-19) Ag IA.rapid Ql (Resp) Negative Presumptive Negative [facility] CARDIAC ELVIRA ADMITon 022 CK [Catalytic activity/Vol] 181 U/L Normal 39-308 [facility] Comment on above: Performed By: #### B HECTOR RODRIGUEZ ####[facility] [address] [place], [place] [address]GfFabrice De La Cruz CK.MB [Mass/Vol] 1.22 ng/mL Normal <=3.60 [facility] Comment on above: Performed By: #### B HECTOR RODRIGUEZ ####[facility] [address] [id number]. Silvia De La Cruz HSTROP 5.0 pg/mL Normal 4.0-76.1 [facility] Comment on above: Result Comment: CUT- OFF POINTS HAVE BEEN ESTABLISHED BASED ON THE FOURTH UNIVERSAL DEFINITIONS OF MYOCARDIAL INFARCTION. THE UPPER REFERENCE LIMIT (URL) OF TROPONIN, DEFINED THE 99TH PERCENTILE OF cTnI DISTRIBUTION IN A REFERENCE POPULATION, HAS BEEN CONFIRMED THE DECISION THRESHOLD FOR [place] DIAGNOSIS. Performed By: #### B JENNIFER, HECTOR ####[facility] [address] [id number]. Silvia De La Cruz MATT 44 ng/mL Normal 16-96 [facility] Comment on above: Performed By: #### B JENNIFER, HECTOR ####[facility] [address] [address]DrFabrice De La Cruz CBC AUTO DIFFon 03-23-2022 BASO # 0.1 103/ul Normal 0.0-0.1 [facility] Comment on above: Performed By: #### C BC #### [facility] [address] [address] [address] Silvia De La Cruz Basophils/100 WBC (Bld) 0.9 % Normal 0.2-2.0 [facility] Comment on above: Performed By: #### C BC #### [facility] [address] [address] [address] Silvia De La Cruz EO # 0.3 103/ul Normal 0.0-0.7 [facility] Comment on above: Performed By: #### C BC #### [facility] [address] [address] [address] Silvia De La Cruz Eosinophils/100 WBC (Bld) 3.9 % Normal 0.9-7.0 [facility] Comment on above: Performed By: #### C BC #### [facility] [address] [address] [address] Silvia De La Cruz Erythrocyte distribution width (RBC) [Ratio] 11.3 % Normal 11.0-15.0 [facility] Comment on above: Performed By: #### C BC #### [facility] [address] [place] [address] Dr. Silvia De La Cruz Hematocrit (Bld) [Volume fraction] 40.8 % Critically low 42.0-54.0 [facility] Comment on above: Performed By: #### C BC #### [facility] [address] [place] [address] Dr. Silvia De La Cruz Hemoglobin (Bld) [Mass/Vol] 14.1 g/dL Normal 14.0-18.0 [facility] Comment on above: Performed By: #### C BC #### [facility] [address] [place] [address] Dr. Silvia De La Cruz IG # 0.01 10e3/ul Normal 0.00-0.03 [facility] Comment on above: Performed By: #### C BC #### [facility] [address] [place] [address] Dr. Silvia De La Cruz IG % 0.1 % Normal 0.0-0.5 [facility] Comment on above: Performed By: #### C BC #### [facility] [address] [place] [address] Dr. Silvia De La Cruz LYMPH # 3.1 103/ul Normal 1.2-3.8 [facility] Comment on above: Performed By: #### C BC #### [facility] [address] [place] [address] Dr. Silvia De La Cruz Lymphocytes/100 WBC (Bld) 45.7 % Normal 20.5-60.0 [facility] Comment on above: Performed By: #### C BC #### [facility] [address] [place] [address] Dr. Silvia De La Cruz MANUAL DIFF REQ NO Normal [facility] Comment on above: Performed By: #### C BC #### [facility] [address] [place] [address] Dr. Silvia De La Cruz MCH (RBC) [Entitic mass] 31.7 pg Normal 25.9-34.0 [facility] Comment on above: Performed By: #### C BC #### [facility] [address] [place] [address] Dr. Silvia De La Cruz MCHC (RBC) [Mass/Vol] 34.6 g/dL Normal 29.9-35.2 [facility] Comment on above: Performed By: #### C BC #### [facility] [address] [place] [address] Dr. Silvia De La Cruz MCV (RBC) [Entitic vol] 91.7 fL Normal 80.0-94.0 [facility] Comment on above: Performed By: #### C BC #### [facility] [address] [place] [address] Dr. Silvia De La Cruz MONO # 0.6 103/ul Normal 0.3-0.8 [facility] Comment on above: Performed By: #### C BC #### [facility] [address] [place] [address] Dr. Silvia De La Cruz Monocytes/100 WBC (Bld) 9.6 % Normal 1.7-12.0 [facility] Comment on above: Performed By: #### C BC #### [facility] [address] [place] [address] Dr. Silvia De La Cruz NEUT # 2.7 103/ul Normal 1.4-6.5 [facility] Comment on above: Performed By: #### C BC #### [facility] [address] [place] [address] Dr. Silvia De La Cruz Neutrophils/100 WBC (Bld) 39.8 % Critically low 43.0-75.0 [facility] Comment on above: Performed By: #### C BC #### [facility] [address] [place] [address] Dr. Silvia De La Cruz Platelet mean volume (Bld) [Entitic vol] 10.8 fL Normal 9.5-13.5 [facility] Comment on above: Performed By: #### C BC #### [facility] [address] [place] [address] Dr. Silvia De La Cruz PLT 259 103/ul Normal 150-450 [facility] Comment on above: Performed By: #### C BC #### [facility] [address] [place] [address] Dr. Silvia De La Cruz RBC 4.45 106/ul Critically low 4.70-6.10 [facility] Comment on above: Performed By: #### C BC #### [facility] [address] [place] [address] Dr. Silvia De La Cruz WBC 6.7 103/ul Normal 4.0-11.0 [facility] Comment on above: Performed By: #### C BC #### [facility] [address] [place], [place] [id number] Dr. Silvia De La Cruz Covid-19 PCR ([facility])on 02-23 SARS-CoV-2 (COVID-19) RNA DANILO+probe Ql (Unsp spec) Not detected Normal NOT DETECTED [facility] Comment on above: Result Comment: When diagnostic [...] for this test is supported by the [place] Supervisor of Health and Human Service's declaration that [...] used). Performed By: #### C VDTBH #### [facility] [address] [place] [address] Dr. Silvia De La Cruz INFLUENZA A AND B AGon 03-23 INFLUANEGH SEE BELOW Normal [facility] Comment on above: Result Comment: Nega tive for Flu A protein angiten. Infection due to Flu A cannot be ruled out. Flu A angiten in the sample may be below the detection limit of the test. Performed By: #### I NFLUAB #### [facility] [address] [place] [address] Dr. Silvia De La Cruz INFLUBNEGH SEE BELOW Normal [facility] Comment on above: Result Comment: Nega tive for Flu B protein antigen. Infection due to Flu B cannot be ruled out. Flu B antigen in the sample may be below the detection limit of the test. Performed By: #### I NFLUAB #### [facility] [address] [address] [address] Silvia De La Cruz INFLUENZA A AG Negative Normal NEGATIVE SEE COMMENT [facility] Comment on above: Performed By: #### I NFLUAB #### [facility] [address] [address] [address] Silvia De La Cruz INFLUENZA B AG Negative Normal NEGATIVE SEE COMMENT [facility] Comment on above: Performed By: #### I NFLUAB #### [facility] [address] [place] [address] Dr. Silvia De La Cruz INTERNAL CONTROLS Within Normal Limits Normal Wi thin Normal Limits [facility] Comment on above: Performed By: #### I NFLUAB #### [facility] [address] [address] [address] Silvia De La Cruz PROF CHEM 8 (BAS METB)on Anion gap [Moles/Vol] 10.7 mmol/L Normal [facility] Comment on above: Performed By: #### B HECTOR RODRIGUEZ ####[facility] [address] [address]DrFabrice De La Cruz Calcium [Mass/Vol] 9.1 mg/dL Normal 8.5-10.1 [facility] Comment on above: Performed By: #### B HECTOR RODRIGUEZ ####[facility] [address] [address]DrFabrice De La Cruz Chloride [Moles/Vol] 105 mmol/L Normal 98-107 [facility] Comment on above: Performed By: #### B HECTOR RODRIGUEZ ####[facility] [address] [address]DrFabrice De La Cruz CO2 [Moles/Vol] 28.0 mmol/L Normal 21.0-32.0 [facility] Comment on above: Performed By: #### B HECTOR RODRIGUEZ ####[facility] [address] [place] [id number]. Silvia De La Cruz Creatinine [Mass/Vol] 0.98 mg/dL Normal 0.70-1.30 [facility] Comment on above: Performed By: #### B JENNIFER, JUNODM ####[facility] [address] [place] [id number]. Silvia De La Cruz EGFR-AF KYRGYZ >60 Normal >=60 [facility] Comment on above: Performed By: #### B JENNIFER, HECTOR ####[facility] [address] [place] [id number]. Silvia De La Cruz EGFR-NON AF KYRGYZ >60 Normal >=60 [facility] Comment on above: Performed By: #### B JENNIFER, HECTOR ####[facility] [address] [place] [id number]. Silvia De La Cruz Glucose [Mass/Vol] 84 mg/dL Normal 74-106 [facility] Comment on above: Performed By: #### B JENNIFER, HECTOR ####[facility] [address] [place] [id number]. Silvia De La Cruz Potassium [Moles/Vol] 3.7 mmol/L Normal 3.5-5.1 [facility] Comment on above: Performed By: #### B JENNIFER, JUNODM ####[facility] [address] [place] [id number]. Silvia De La Cruz Sodium [Moles/Vol] 140 mmol/L Normal 136-145 [facility] Comment on above: Performed By: #### B JENNIFER, JUNODM ####[facility] [address] [place] [id number]. Silvia De La Cruz Urea nitrogen [Mass/Vol] 14.0 mg/dL Normal 7.0-18.0 [facility] Comment on above: Performed By: #### B JENNIFER, JUNODM ####[facility] [address] [place] [id number]. Silvia De La Cruz Urea nitrogen/Creatinine [Mass ratio] 14.3 mg/mg Normal [facility] Comment on above: Performed By: #### B JENNIFER CMADM ####[facility] [address] [place], [place] [address]FvDr. Silvia De La Cruz Covid-19 PCR ([facility])on 11-25 SARS-CoV-2 (COVID-19) RNA DANILO+probe Ql (Unsp spec) Not detected Normal NOT DETECTED [facility] Comment on above: Result Comment: This test is not yet approved or cleared by the [place] FDA. When there are no FDA-approved or cleared tests available, and other criteria are met, FDA can make tests available under an emergency access mechanism called an Emergency Use Authorization (EUA). The EUA for this test is supported by the [place] Supervisor of Health and Human Service's (HHS's) declaration [...] consistent with SARS-CoV-2. Performed By: #### [facility] #### [facility] [address] [place], [place] [address] Dr. Silvia De La Cruz Vital Signs Date Time Vital Sign Value Performing Clinician Facility 06-05-2024 13:54-0400 Body height 175.26 cm [facility] 06-05-2024 13:54-0400 Body mass index (BMI) [Ratio] 28.6 kg/m2 [facility] 06-05-2024 13:54-0400 Body weight 87.99 kg [facility] 06-05-2024 13:54-0400 Diastolic blood pressure 76 mm[Hg] [facility] 06-05-2024 13:54-0400 Heart rate 83 /min [facility] 06-05-2024 13:54-0400 SaO2% (BldA) [Mass fraction] 96 % [facility] 06-05-2024 13:54-0400 Systolic blood pressure 116 mm[Hg] [facility] 04-11-2024 08:59-0400 Body height 175.26 cm RAQUEL Stern Work Phone: [facility] 04-11-2024 08:59-0400 Body mass index (BMI) [Ratio] 29.8 kg/m2 DIRECTOR OF AGRONOMYEnoc Sanacher Work Phone: [facility] 04-11-2024 08:59-0400 Body weight 91.62 kg DIRECTOR OF AGRONOMYEnoc Sanacher Work Phone: [facility] 04-11-2024 08:59-0400 Diastolic blood pressure 84 mm[Hg] RAQUEL Sanachewilfredo Work Phone: [facility] 04-11-2024 08:59-0400 Heart rate 69 /min DIRECTOR OF AGRONOMYEnoc Sanacher Work Phone: [facility] 04-11-2024 08:59-0400 SaO2% (BldA) [Mass fraction] 98 % DIRECTOR OF AGRONOMYEnoc Sanacher Work Phone: [facility] 04-11-2024 08:59-0400 Systolic blood pressure 120 mm[Hg] RAQUEL Sanacher Work Phone: [facility] 03-23-2024 11:28-0400 Body height 175.26 cm RAQUEL Stern Work Phone: [facility] 03-23-2024 11:28-0400 Body mass index (BMI) [Ratio] 29.8 kg/m2 DIRECTOR OF AGRONOMYEnoc Sanacher Work Phone: [facility] 03-23-2024 11:28-0400 Body weight 91.62 kg RAQUEL Sanacher Work Phone: [facility] 03-23-2024 11:28-0400 Diastolic blood pressure 80 mm[Hg] RAQUEL Barriosr Work Phone: [facility] 03-23-2024 11:28-0400 Heart rate 85 /min DIRECTOR OF AGRONOMYEnoc ShuklaVero Ginrbacher Work Phone: [facility] 03-23-2024 11:28-0400 SaO2% (BldA) [Mass fraction] 98 % DIRECTOR OF AGRONOMYEnoc ShuklaVero Ginrbacher Work Phone: [facility] 03-23-2024 11:28-0400 Systolic blood pressure 116 mm[Hg] DIRECTOR OF AGRONOMYEnoc Greenfieldrbacher Work Phone: [facility] 01-19-2024 13:01-0400 Body height 175.26 cm DIRECTOR OF AGRONOMYEnoc Greenfieldrbacher Work Phone: [facility] 01-19-2024 13:01-0400 Body mass index (BMI) [Ratio] 30.5 kg/m2 DIRECTOR OF AGRONOMYEnoc Sanacher Work Phone: [facility] 01-19-2024 13:01-0400 Body weight 93.89 kg DIRECTOR OF AGRONOMYEnoc Sanacher Work Phone: [facility] 01-19-2024 13:01-0400 Diastolic blood pressure 80 mm[Hg] RAQUEL Greenfieldrbacher Work Phone: [facility] 01-19-2024 13:01-0400 Heart rate 91 /min DIRECTOR OF AGRONOMYEnoc Sanacher Work Phone: [facility] 01-19-2024 13:01-0400 SaO2% (BldA) [Mass fraction] 96 % RAQUEL Sanacher Work Phone: [facility] 01-19-2024 13:01-0400 Systolic blood pressure 126 mm[Hg] RAQUEL Greenfieldrbacher Work Phone: [facility] 01-15-2024 22:15-0400 Diastolic blood pressure 75 mm[Hg] RAQUEL Greenfieldchantelleacher Work Phone: [facility] 01-15-2024 22:15-0400 Heart rate 86 /min DIRECTOR OF AGRONOMYEnoc Sanacher Work Phone: [facility] 01-15-2024 22:15-0400 Respiratory rate 19 /min DIRECTOR OF AGRONOMYEnoc Sanacher Work Phone: [facility] 01-15-2024 22:15-0400 SaO2% (BldA) [Mass fraction] 97 % DIRECTOR OF AGRONOMYEnoc Sanacher Work Phone: [facility] 01-15-2024 22:15-0400 Systolic blood pressure 129 mm[Hg] DIRECTOR OF AGRONOMYEnoc Sanacher Work Phone: [facility] 01-15-2024 19:45-0400 Body height 175.26 cm DIRECTOR OF AGRONOMYEnoc Barriosr Work Phone: [facility] 01-15-2024 19:45-0400 Body temperature 97.9 [degF] DIRECTOR OF AGRONOMYEnoc Sanacher Work Phone: [facility] 01-15-2024 19:45-0400 Body weight 94.5 kg DIRECTOR OF AGRONOMYEnoc Sanacher Work Phone: [facility] 01-13-2024 11:38-0400 Body height 175.26 cm [facility] 01-13-2024 11:38-0400 Body mass index (BMI) [Ratio] 30.1 kg/m2 [facility] 01-13-2024 11:38-0400 Body temperature 98.9 [degF] [facility] 01-13-2024 11:38-0400 Body weight 92.53 kg [facility] 01-13-2024 11:38-0400 Diastolic blood pressure 66 mm[Hg] [facility] 01-13-2024 11:38-0400 Heart rate 68 /min [facility] 01-13-2024 11:38-0400 Respiratory rate 18 /min [facility] 01-13-2024 11:38-0400 SaO2% (BldA) [Mass fraction] 97 % [facility] 01-13-2024 11:38-0400 Systolic blood pressure 116 mm[Hg] [facility] 12-07-2023 15:57-0500 Body height 175.26 cm [facility] 12-07-2023 15:57-0500 Body mass index (BMI) [Ratio] 30.2 kg/m2 [facility] 12-07-2023 15:57-0500 Body weight 92.98 kg [facility] 12-07-2023 15:57-0500 Diastolic blood pressure 74 mm[Hg] [facility] 12-07-2023 15:57-0500 Heart rate 80 /min [facility] 12-07-2023 15:57-0500 SaO2% (BldA) [Mass fraction] 98 % [facility] 12-07-2023 15:57-0500 Systolic blood pressure 124 mm[Hg] [facility] 11-23-2023 13:00-0500 Body height 175.26 cm Vero Stern Other [facility] 11-23-2023 13:00-0500 Body mass index (BMI) [Ratio] 30.57 kg/m2 Vero Stern Other [facility] [employer] Other 11-23-2023 13:00-0500 Body temperature 98.2 [degF] Vero Stern Other [facility] Other 11-23-2023 13:00-0500 Body weight 93.9 kg Vero Stern Other [facility] Other 11-23-2023 13:00-0500 Body weight 93.89 kg [facility] 11-23-2023 13:00-0500 Diastolic blood pressure 72 mm[Hg] Vero Stern Other [facility] 11-23-2023 13:00-0500 SaO2% (BldA) [Mass fraction] 96 % Vero Jarred Other [facility] Other 11-23-2023 13:00-0500 Systolic blood pressure 110 mm[Hg] Vero Jarred Other [facility] 11-21-2023 14:40-0500 Body height 175.26 cm Pura Lewismond Other [facility] 11-21-2023 14:40-0500 Body mass index (BMI) [Ratio] 30.12 kg/m2 Pura Eliza Other [facility] Other 11-21-2023 14:40-0500 Body temperature 101.9 [degF] Pura Lewismond Other [facility] Other 11-21-2023 14:40-0500 Body weight 92.53 kg Pura Lewismond Other [facility] 11-21-2023 14:40-0500 Respiratory rate 18 /min Pura Lewismond Other [facility] [employer] Other 11-21-2023 14:40-0500 SaO2% (BldA) [Mass fraction] 96 % Pura Eliza Other [facility] Other 11-04-2023 11:00-0500 Body height 175.26 cm Joelle Gonzalez Other [facility] 11-04-2023 11:00-0500 Body mass index (BMI) [Ratio] 29.5 kg/m2 Joelle Gonzalez Other [facility] Other 11-04-2023 11:00-0500 Body weight 90.63 kg Joelle Gonzalez Other [facility] [employer] Other 11-04-2023 11:00-0500 Body weight 90.62 kg [facility] 11-04-2023 11:00-0500 Diastolic blood pressure 86 mm[Hg] Joelle Carlos Other [facility] 11-04-2023 11:00-0500 SaO2% (BldA) [Mass fraction] 98 % Joelle Gonzalez Other [facility] Other 11-04-2023 11:00-0500 Systolic blood pressure 128 mm[Hg] Joelle Gonzalez Other [facility] 09-27-2023 11:19-0500 Blood Pressure Location VERO UNRULY [facility] 09-27-2023 11:19-0500 Diastolic blood pressure 87 mm[Hg] VERO UNRULY [facility] 09-27-2023 11:19-0500 Heart rate 65 /min VERO UNRULY [facility] 09-27-2023 11:19-0500 Respiratory rate 16 /min VERO UNRULY [facility] 09-27-2023 11:19-0500 Systolic blood pressure 120 mm[Hg] VERO UNRULY [facility] 09-19-2023 08:30-0500 Body height 175.26 cm Vero Stern Other [facility] 09-19-2023 08:30-0500 Body mass index (BMI) [Ratio] 29.53 kg/m2 Vero Stern Other [employer] Other 09-19-2023 08:30-0500 Body weight 90.72 kg Vero Stern Other [employer] Other 09-19-2023 08:30-0500 Body weight 90.71 kg [facility] 09-19-2023 08:30-0500 Diastolic blood pressure 82 mm[Hg] Vero Stern Other [facility] 09-19-2023 08:30-0500 SaO2% (BldA) [Mass fraction] 98 % Vero Stern Other [employer] Other 09-19-2023 08:30-0500 Systolic blood pressure 122 mm[Hg] Vero Stern Other [facility] 09-10-2023 11:50-0500 Body height 175.26 cm [facility] 09-10-2023 11:50-0500 Body weight 88.54 kg [facility] 08-08-2023 17:26-0400 Diastolic blood pressure 84 mm[Hg] PHYSICIAN NO [facility] 08-08-2023 17:26-0400 Heart rate 52 /min PHYSICIAN NO [facility] 08-08-2023 17:26-0400 Respiratory rate 16 /min PHYSICIAN NO [facility] 08-08-2023 17:26-0400 SaO2% (BldA) [Mass fraction] 98 % PHYSICIAN NO [facility] 08-08-2023 17:26-0400 Systolic blood pressure 122 mm[Hg] PHYSICIAN NO [facility] 08-08-2023 15:31-0400 Body height 175.26 cm PHYSICIAN NO [facility] 08-08-2023 15:31-0400 Body mass index (BMI) [Ratio] 28 kg/m2 PHYSICIAN NO [facility] 08-08-2023 15:31-0400 Body weight 86.18 kg PHYSICIAN NO [facility] 08-08-2023 13:55-0400 Body temperature 98.1 [degF] PHYSICIAN NO [facility] 07-25-2023 19:10-0400 Diastolic blood pressure 90 mm[Hg] PHYSICIAN NO [facility] 07-25-2023 19:10-0400 Heart rate 61 /min PHYSICIAN NO [facility] 07-25-2023 19:10-0400 Respiratory rate 16 /min PHYSICIAN NO [facility] 07-25-2023 19:10-0400 SaO2% (BldA) [Mass fraction] 96 % PHYSICIAN NO [facility] 07-25-2023 19:10-0400 Systolic blood pressure 127 mm[Hg] PHYSICIAN NO [facility] 07-25-2023 15:19-0400 Body height 175.26 cm PHYSICIAN NO [facility] 07-25-2023 15:19-0400 Body mass index (BMI) [Ratio] 28 kg/m2 PHYSICIAN NO [facility] 07-25-2023 15:19-0400 Body weight 86.18 kg PHYSICIAN NO [facility] 07-25-2023 15:08-0400 Body temperature 98.2 [degF] PHYSICIAN NO [facility] 07-25-2023 09:06-0400 Blood Pressure Location Mina BAEZ [facility] 07-25-2023 09:06-0400 Diastolic blood pressure 82 mm[Hg] Mina BAEZ [facility] 07-25-2023 09:06-0400 Heart rate 80 /min Mina BAEZ [facility] 07-25-2023 09:06-0400 Systolic blood pressure 134 mm[Hg] Mina BAEZ [facility] 07-19-2023 20:50-0400 Diastolic blood pressure 93 mm[Hg] PHYSICIAN NO [facility] 07-19-2023 20:50-0400 Heart rate 66 /min PHYSICIAN NO [facility] 07-19-2023 20:50-0400 Respiratory rate 20 /min PHYSICIAN NO [facility] 07-19-2023 20:50-0400 SaO2% (BldA) [Mass fraction] 99 % PHYSICIAN NO [facility] 07-19-2023 20:50-0400 Systolic blood pressure 138 mm[Hg] PHYSICIAN NO [facility] 07-19-2023 18:37-0400 Body height 175.26 cm PHYSICIAN NO [facility] 07-19-2023 18:37-0400 Body temperature 97.5 [degF] PHYSICIAN NO [facility] 07-19-2023 18:37-0400 Body weight 86.18 kg PHYSICIAN NO [facility] 07-07-2023 13:00-0400 Body height 175.26 cm La Nena Travis Other [facility] [employer] Other 07-07-2023 13:00-0400 Body mass index (BMI) [Ratio] 28.26 kg/m2 La Nena Travis Other [employer] Other 07-07-2023 13:00-0400 Body temperature 100.1 [degF] La Nena Travis Other [employer] Other 07-07-2023 13:00-0400 Body weight 86.82 kg La Nena Travis Other [employer] Other 07-07-2023 13:00-0400 Diastolic blood pressure 86 mm[Hg] La Nena Travis Other [employer] Other 07-07-2023 13:00-0400 Respiratory rate 18 /min La Nena Travis Other [employer] Other 07-07-2023 13:00-0400 SaO2% (BldA) [Mass fraction] 98 % La Nena Travis Other [employer] Other 07-07-2023 13:00-0400 Systolic blood pressure 128 mm[Hg] La Nena Travis Other [employer] Other 05-23-2023 15:50-0400 Body height 175.26 cm Claire Rothman Other [employer] Other 05-23-2023 15:50-0400 Body mass index (BMI) [Ratio] 27.76 kg/m2 Claire Rothman Other [employer] Other 05-23-2023 15:50-0400 Body temperature 99 [degF] Claire Rothman Other [employer] Other 05-23-2023 15:50-0400 Body weight 85.28 kg Claire Rothman Other [employer] Other 05-23-2023 15:50-0400 Diastolic blood pressure 82 mm[Hg] Claire Rothman Other [employer] Other 05-23-2023 15:50-0400 Respiratory rate 18 /min Claire Rothman Other [employer] Other 05-23-2023 15:50-0400 SaO2% (BldA) [Mass fraction] 99 % Claire Rothman Other [employer] Other 05-23-2023 15:50-0400 Systolic blood pressure 121 mm[Hg] Claire Rothman Other [employer] Other 08-21-2022 04:22-0400 Body height 172.7 cm Reece Briscoe MD Work Phone: [facility] 08-21-2022 04:22-0400 Body mass index (BMI) [Ratio] 28.89 kg/m2 Reece Briscoe MD Work Phone: [facility] 08-21-2022 04:22-0400 Body temperature 98.6 [degF] Reece Briscoe MD Work Phone: [facility] 08-21-2022 04:22-0400 Body weight 86.18 kg Reece Briscoe MD Work Phone: [facility] 08-21-2022 04:22-0400 Diastolic blood pressure 79 mm[Hg] Reece Briscoe MD Work Phone: [facility] 08-21-2022 04:22-0400 Heart rate 128 /min Reece Briscoe MD Work Phone: [facility] 08-21-2022 04:22-0400 Respiratory rate 18 /min Reece Briscoe MD Work Phone: [facility] 08-21-2022 04:22-0400 SaO2% (BldA) [Mass fraction] 96 % Reece Briscoe MD Work Phone: [facility] 08-21-2022 04:22-0400 Systolic blood pressure 154 mm[Hg] Reece Briscoe MD Work Phone: [facility] 08-02-2022 15:01-0400 Body temperature 98.71 [degF] Kasia Urbina APRN-ENAMEL DRIER Work Phone: [facility] 08-02-2022 15:01-0400 Diastolic blood pressure 92 mm[Hg] Kasia Urbina DIRECTOR OF AGRONOMY-[employer]MEL [employer]RIER Work Phone: [facility] 08-02-2022 15:01-0400 Heart rate 91 /min Kasia Urbina DIRECTOR OF AGRONOMY-ENAMEL DRIER Work Phone: [facility] 08-02-2022 15:01-0400 Respiratory rate 18 /min Kasia Urbina DIRECTOR OF AGRONOMY-[employer]MEL [employer]RIER Work Phone: [facility] 08-02-2022 15:01-0400 SaO2% (BldA) [Mass fraction] 99 % Kasia Urbina DIRECTOR OF AGRONOMY-[employer]MEL [employer]ER Work Phone: [facility] 08-02-2022 15:01-0400 Systolic blood pressure 157 mm[Hg] Kasia Urbina DIRECTOR OF AGRONOMY-ENAMEL DRIER Work Phone: [facility] Encounters Encounter Date Encounter Type Care Provider Facility Start: 06-05-2024 End: 06-05-2024 ambulatory [facility] Work Phone: Start: 06-05-2024 End: 06-05-2024 Patient encounter procedure [facility] Work Phone: Start: 05-28-2024 End: 05-28-2024 ambulatory ANNA FORD Not Available Start: 04-11-2024 End: 04-11-2024 ambulatory RAQUEL Stern Work Phone: [facility] Work Phone: Start: 04-11-2024 End: 04-11-2024 Patient encounter procedure [facility] Stern 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) Start: 04-04-2024 End: 04-04-2024 ambulatory JOELLE CHAR [facility] Start: 03-29-2024 End: 03-29-2024 ambulatory ANNA FORD Not Available Start: 03-23-2024 End: 03-23-2024 ambulatory RAQUEL Stern Work Phone: [facility] Work Phone: Start: 03-23-2024 End: 03-23-2024 Patient encounter procedure [facility] Stern [facility] Work [facility]: Start: 03-06-2024 Non-patient / Non-visit RAQUEL Stern Work Phone: [facility] Work Phone: Start: 02-14-2024 End: 02-15-2024 ambulatory Mina BEAZ Facility: [place] Start: 02-14-2024 End: 02-14-2024 Patient encounter procedure Mina BAEZ [facility] Start: 02-08-2024 End: 02-08-2024 ambulatory RAQEUL Stern Work Phone: [facility] Work Phone: Start: 02-08-2024 End: 02-08-2024 Patient encounter procedure RAQUEL Stern Work Phone: [facility] Work Phone: Start: 01-19-2024 End: 01-19-2024 ambulatory RAQUEL Stern Work Phone: [facility] Work Phone: Start: 01-19-2024 End: 01-19-2024 Patient encounter procedure RAQUEL Stern Work Phone: [facility] Work Phone: Start: 01-18-2024 Non-patient / Non-visit RAQUEL Stern Work Phone: [facility] [employer] Work Phone: Start: 01-16-2024 End: 01-16-2024 ambulatory RAQUEL Stern Work Phone: [facility] Work Phone: Start: 01-16-2024 End: 01-16-2024 Patient encounter procedure RAQUEL Stern Work Phone: [facility] Work Phone: Start: 01-15-2024 End: 01-16-2024 Emergency department patient visit Sang Lovett Facility:[facility] Start: 01-15-2024 End: 01-15-2024 Emergency department patient visit RAQUEL Stern Work Phone: [facility] Work Phone: Start: 01-13-2024 End: 01-13-2024 ambulatory [facility] Work Phone: Start: 01-13-2024 End: 01-13-2024 Patient encounter procedure [facility] Work Phone: Start: 12-07-2023 End: 12-07-2023 ambulatory [facility] Work Phone: Start: 12-07-2023 End: 12-07-2023 Patient encounter procedure [facility] Work Phone: Start: 11-23-2023 End: 11-23-2023 ambulatory Vero Stern Other [facility] [employer] Other Start: 11-23-2023 Office outpatient vi sit 15 minutes Vero Stern [facility] Start: 11-23-2023 End: 11-23-2023 Patient encounter procedure [facility]- Start: 11-21-2023 End: 11-21-2023 ambulatory Pura Kay Other [employer] Other Start: 11-21-2023 Office outpatient vi sit 15 minutes Pura Kay [facility] Start: 11-21-2023 Telephone encounter Vero Fredi her [facility] Start: 11-21-2023 End: 11-21-2023 Patient encounter procedure [facility]- Start: 11-07-2023 End: 11-07-2023 ambulatory Vero Stern Other [employer] Other Start: 11-07-2023 Telephone encounter Vero Fredi her [facility] [employer] Start: 11-04-2023 End: 11-04-2023 ambulatory Joelle Gonzalez Other [employer] Other Start: 11-04-2023 Office outpatient ne w 45 minutes Joelle Gonzalez [facility] Start: 11-04-2023 End: 11-04-2023 Patient encounter procedure [facility] Work Phone: Start: 10-31-2023 End: 10-31-2023 ambulatory Vero Stern Other [employer] Other Start: 10-31-2023 Telephone encounter Vero Fredi her [facility] Start: 10-18-2023 End: 10-18-2023 ambulatory Vero Stern Other [employer] Other Start: 10-18-2023 Telephone encounter Vero Fredi her [facility] Start: 09-27-2023 End: 09-28-2023 ambulatory VERO TOLLIVER Facility:[facility] Start: 09-27-2023 End: 09-27-2023 Patient encounter procedure VERO TOLLIVER [facility] Start: 09-19-2023 End: 09-19-2023 ambulatory Vero Stern Other [employer] Other Start: 09-19-2023 Office outpatient ne w 30 minutes eVro Stern [facility] Start: 09-19-2023 End: 09-19-2023 Patient encounter procedure [facility] Work Phone: Start: 09-10-2023 End: 09-10-2023 Patient encounter procedure [facility] Work Phone: Start: 08-12-2023 End: 08-13-2023 ambulatory Mina BAEZ Facility:[facility] [place] Start: 08-12-2023 End: 08-12-2023 Patient encounter procedure Mina BAEZ [facility] Start: 08-08-2023 End: 08-08-2023 ambulatory Mina Baez Facility:[facility] Start: 08-08-2023 End: 08-08-2023 Admission to same day surgery center PHYSICIAN NO [facility] [place] Start: 08-08-2023 End: 08-09-2023 ambulatory PHYSICIAN NO [facility] Work Phone: Start: 07-25-2023 End: 07-25-2023 ambulatory PHYSICIAN NO FAMILY Facility:[facility] Start: 07-25-2023 End: 07-25-2023 Admission to same day surgery center PHYSICIAN NO [facility] [place] Start: 07-25-2023 End: 07-25-2023 ambulatory PHYSICIAN NO [facility] Work Phone: Start: 07-25-2023 End: 07-26-2023 ambulatory Mina BAEZ Facility:[id number] Start: 07-25-2023 End: 07-26-2023 ambulatory Mina Cyril BAEZ Facility:[facility] Start: 07-25-2023 End: 07-25-2023 ambulatory PHYSICIAN NO FAMILY Facility:[facility] Start: 07-25-2023 End: 07-25-2023 Patient encounter procedure Mina BAEZ [facility] Start: 07-25-2023 End: 07-25-2023 ambulatory PHYSICIAN NO [facility] Work Phone: Start: 07-25-2023 End: 07-25-2023 Patient encounter procedure PHYSICIAN NO [facility] [place] Work Phone: Start: 07-19-2023 End: 07-19-2023 Emergency department patient visit PHYSICIAN NO FAMILY Facility:[facility] Start: 07-19-2023 End: 07-19-2023 Emergency department patient visit PHYSICIAN NO [facility] Work Phone: Start: 07-07-2023 End: 07-07-2023 ambulatory La Nena Travis Other [employer] Other Start: 07-07-2023 Office outpatient vi sit 25 minutes La Nena Travis [facility] Start: 05-23-2023 End: 05-23-2023 ambulatory Claire Rothman Other [employer] Other Start: 05-23-2023 Office outpatient vi sit 15 minutes Claire Rothman [facility] Start: 11-04-2022 End: 11-04-2022 ambulatory BEBETO PEREZ Facility: Start: 08-21-2022 End: 08-21-2022 Emergency department patient visit REECE BRISCOE [facility] Start: 08-21-2022 End: 08-21-2022 Emergency department patient visit Reece Briscoe MD Work Phone: [facility] Comment on above: Accidental drug over dose, initial encounter (Primary Dx) Start: 08-02-2022 End: 08-02-2022 Office outpatient visit 15 minutes Kasia Urbina DIRECTOR OF AGRONOMY-ENAMEL DRIER Work Phone: [facility] [place] Comment on above: Viral infection, uns pecified (Primary Dx); Screening for STD (sexually transmitted disease); Anxiety about health Start: 03-23-2022 End: 03-23-2022 ambulatory BEBETO ANA Facility:[facility] Start: 12-22-2021 End: 12-22-2021 ambulatory Ratna Belcher [employer] Work Phone: [facility] Start: 12-22-2021 End: 12-22-2021 Patient encounter procedure Ratna Belcher [employer] Work Phone: Psychiatry Comment on above: APPOINTMENT [...] Work Phone: Start: 08-02-2022 POC COVID-FLU HERNAN Urbina DIRECTOR OF AGRONOMY-ENAMEL DRIER Work Phone: Start: 12-21-2021 Adult depression scr eening assessment Ratna ARAMBULA Work Phone: History of hernia repair Kylie BAEZ Tonsillectomy Mina BAEZ Plan of Treatment Date Care Activity Detail Author Start: 2039 Zoster Vaccines (1 of 2) Zoste r Vaccines (1 of 2) [facility] Start: 06-24-2024 Influenza vaccination Influenz a Vaccine (Season Ended) [facility] Start: 04-11-2024 Patient referral [facility] Work Phone: Start: 01-15-2024 Plain chest X-ray XR chest 2V* [facility] Start: 01-15-2024 XR Chest 2 Views [facility] Start: 08-08-2023 End: 08-08-2023 [facility] Start: 07-25-2023 [facility] Start: 07-25-2023 [facility] Start: 06-24-2023 COVID-19 Vaccine ( season) COVID-19 Vaccine ( season) [facility] Start: 12-21-2022 Adult depression scr eening assessment DEPRESSION SCREENING [facility] Start: 06-24-2022 Influenza vaccination Influenza Vacc ine (#1) [facility] Start: 05-24-2022 Influenza vaccination Flu vaccine (# 1) [facility] Start: 06-24-2021 Influenza vaccination INFLUENZA (#1) [facility] Start: 2011 DTaP/Tdap/Td Vaccine s (1 - Tdap) DTaP/Tdap/Td Vaccines (1 - Tdap) [facility] Start: 2008 DTaP/Tdap/Td vaccine (1 - Tdap) DTaP/Tdap/Td vaccine (1 - Tdap) [facility] Start: 2008 DTaP/Tdap/Td Vaccine s (1 - Tdap) DTaP/Tdap/Td Vaccines (1 - Tdap) [facility] Start: 2008 Hepatitis B Vaccines (1 of 3 - 19+ 3-dose series) Hepatitis B Vaccines (1 of 3 - 19+ 3-dose series) [facility] Start: 2008 Urine microalbumin profile DTA P,TDAP,TD (1 - Tdap) [facility] Start: 2007 HEPATITIS C SCREENING HEPATITIS C [facility] Start: 2007 Hepatitis C screening B [facility] Start: 2007 HIV SCREENING HIV SCREENING [facility] Start: 2004 HIV screening HIV screen [facility] Start: 2002 Varicella vaccination Varicell a Vaccines (1 of 2 - 13+ 2-dose series) [facility] Start: 2001 Depression Screen Depression Screen [facility] Start: 1995 Pneumococcal Vaccine : Pediatrics (0 to 5 Years) and At-Risk Patients (6 to 64 Years) (1 of 2 - PCV) Pneumococcal Vaccine: Pediatrics (0 to 5 Years) and At-Risk Patients (6 to 64 Years) (1 of 2 - PCV) [facility] Start: 1994 COVID-19 VACCINE (1) COVID-19 VACCIN E (1) [facility] Start: 1990 MMR Vaccines (1 of 1 - Standard series) MMR Vaccines (1 of 1 - Standard series) [facility] Start: 1990 Varicella vaccine (1 of 2 - 2-dose childhood series) Varicella vaccine (1 of 2 - 2-dose childhood series) [facility] Start: 04-12-1990 COVID-19 Vaccine (#1) COVID-19 Vacci ne (#1) [facility] Start: 1989 Hepatitis C screening Hepatitis C Sc reening [facility] Start: 1989 HIV screening HIV Screening [facility] Start: 1989 Lipid panel Lipid Panel [facility] Start: 1989 Yearly Adult Physical Yearly Adult P hysical [facility] Chlamydia sp rRNA [Presence] in Cervix by Probe Chlamydia Trachomatis, RNA Lab Routine Screening for STD (sexually transmitted disease) 08/02/2022 3:09 PM EDT [facility] Electromyography [facility] End: 04-04-2024 MR Heart WO and W contrast IV [facility] Service Area Work Phone: Comment on above: Once for 1 Occurrenc es starting 04/04/2024 until 04/04/2024 End: 04-04-2024 MRA Heart [facility] Work Phone: Comment on above: Once for 1 Occurrenc es starting 04/04/2024 until 04/04/2024 NEISSERIA GONORRHEA/CHLAMYDIA TRACHOMATIS RNA NEISSERIA GONORRHEA/CHLAMYDIA TRACHOMATIS RNA Lab Routine Screening for STD (sexually transmitted disease) 08/02/2022 3:09 PM EDT [facility] Neisseria gonorrhoea e DNA [Presence] in Genital specimen by DANILO with probe detection Neisseria Gonhorrhoeae, RNA Lab Routine Screening for STD (sexually transmitted disease) 08/02/2022 3:09 PM EDT [facility] Patient Education [facility] Work Phone: Patient referral [facility] Work Phone: End: 08-02-2023 Trichomonas vaginalis, NAAT Trichomonas vaginalis, NAAT Lab Routine Screening for STD (sexually transmitted disease) 1 Occurrences starting 08/02/2022 until 08/02/2023 [facility] Work Phone: Comment on above: 1 Occurrences starti ng 08/02/2022 until 08/02/2023 Trichomonas vaginali s, NAAT Trichomonas vaginalis, NAAT Lab Routine Screening for STD (sexually transmitted disease) 08/02/2022 3:09 PM EDT [facility] Immunizations Immunization Date Immunization Notes Care Provider Lex valdez 07-31-2020 hepatitis B vaccine, adult dosage Mina BAEZ [facility] 03-20-2020 hepatitis B vaccine, adult dosage Mina BAEZ [facility] 02-21-2020 hepatitis B vaccine, adult dosage Mina BAEZ [facility] 06-18-2002 measles, mumps and rubella virus vaccine Mina BAEZ [facility] Payers Date Payer Category Payer Private Health Insurance [facility] [id number] 2023-Present [address] [place] [address] [id number] 2023 Self-pay [id number] 2022 Medicaid [id number] 2022 Medicare [facility] MEDICARE [facility] DUAL COMPLETE [id number] 2022-Present [address] [place] [address] [id number] 2020 Medicaid [facility] MEDICAID [facility] MEDICAID [id number] 2020-Present [phone] [address] [place] [address] Medicaid [id number] 1989 Unknown [id number] 2.16.840.1.551890.3.579.2. 593 1989 Unknown [id number] 2.16.840.1.241529.3.579.2. 593 1989 Unknown [id number] 2.16.840.1.331065.3.579.2. 593 1989 Unknown [id number] 2.16.840.1.279311.3.579.2. 593 1989 Unknown [id number] 2.16.840.1.848324.3.579.2. 727 1989 Unknown [id number] 2.16.840.1.596392.3.579.2. 727 1989 Unknown [id number] 2.16.840.1.399298.3.579.2. 727 1989 Unknown [id number] 2.16.840.1.828956.3.579.2. 727 1989 Unknown [id number] 2.16.840.1.264438.3.579.2. 727 1989 Unknown [id number] 2.840.1.800950.3.579.2. 727 1989 Unknown [id number] 2.16840.1.650977.3.579.2. 1246 1989 Unknown [id number] 2.16840.1.283175.3.579.2. 1259 1989 Unknown [id number] 2.16.840.1.093825.3.579.2. 1259 1959 Unknown [id number] Unknown [employer] / [id number] Unknown [id number] 2.16840.1.800710.3.579.2. 531 Unknown [id number] 2.16.840.1.910121.3.579.2. 531 Unknown [id number] 2.16.840.1.037140.3.579.2. 531 Unknown [id number] 2.16.840.1.876571.3.579.2. 531 Unknown [id number] 2.16840.1.180380.3.579.2. 531 Social History Date Type Detail Facility Tobacco smoking status NHIS Tobacco smoking consumption unknown [facility] Start: 1990 Sex Assigned At Not on file [facility] Start: 08-02-2022 End: 07-19-2023 Tobacco smoking status NHIS Never smoked tobacco [facility] [employer] Start: 08-02-2022 End: 08-21-2022 Tobacco use and exposure Smokeless tobacco non-user [facility] Start: 07-23-2022 End: 04-04-2024 Exposure to SARS-CoV-2 (event) Not sure [facility] Start: 08-21-2022 Tobacco smoking status NHIS Occasional tobacco smoker [employer] Phone: History of tobacco use Cigarette Smoker [employer] Phone: Start: 08-21-2022 Alcohol intake Current drinke r of alcohol (finding) [employer] Phone: Start: 08-21-2022 Alcohol Comment occasionally [employer] Phone: Sex Assigned At [facility] Start: 1990 Sex Assigned At Male F [facility] Start: 07-25-2023 End: 01-19-2024 Tobacco smoking status NHIS Ex-smoker (finding) [facility] Tobacco smoking status Never [facility] Medical Equipment Procedure Code Equipment Code Equipment Origin al Text Equipment Identifier Dates Cystoscopy, with ureteral calculus manipulation and stent placement Polymeric ureteral stent [id number] [facility] Start: 07-25-2023 Cystoscopy, with ureteral calculus manipulation and stent placement Polymeric ureteral stent ()[id number] FDA Start: 08-08-2023 Goals Date Patient Goal Desired Activity /State Functional Status Date Assessment Result Facility 09-27-2023 Functional Status N/A [facility] 07-25-2023 Functional Status N/A [facility] Clinical Notes 12-22-2021 to 02-08-2024 Note Date & Type Note Facility 02-08-2024 Evaluation note Authored February 08, 2024 4:2 2pm Patient in the office today for Zio patch application for syncope and collapse ordered per Dr. Gonzalez. [facility] Work Phone: [phone] Evaluation note* Encounter Date Diagnosis Assessment Notes Treatment Notes Treatment Clinical Notes Oct, Bronchitis (ICD-10 - J40) Discussed viral nature of bronchitis and average duration being 3-4 weeks. Encouraged frequent handwashing, cough into elbow, etc. Discussed diagnosis with patient. Patient to start Zithromax. Patient to take Zithromax daily with food as prescribed. Finish entire course of antibiotic. STOP Doxy and Tessalone. Direceted on use of promethazine as needed for cough. Increase fluids and rest. Antu-upx-hjajqwv antipyretics as needed. Warning signs and symptoms reviewed with patient today. Patient to go immediately to the ER should she experience any of these. Patient to notify office should symptoms persist and not improve. may need x-ray evaluation. Patient verbalizes understanding and agrees to treatment plan. [employer] Other 01-29-2024 Evaluation note* Encounter Date Diagnosis [...] 3 days. Off work today and tomorrow. [employer] Other 01-12-2024 Evaluation note* Encounter Date Diagnosis Assessment Notes Treatment Notes Treatment Clinical Notes Oct, Heart palpitations (ICD-10 - R00.2) Oct, Family history of hypertrophic cardiomyopathy (ICD-10 - Z82.49) Mr Giovanni is a 33yoM with PMH significant for Asthma, JAZZY on CPAP, ADHD, hx of bilateral inguinal hernias s/p repair who presents as a referral for ventricular hypertrophy. Pt's sister was diagnosed with hypertrophic cardiomyopathy and has an ICD. Her disease has progressed and he reports that she is getting surgical myectomy today at [facility]. They had been estranged for a number of years and only started talking after she got diagnosed and told him to get evaluated. He is unaware of specific genetic testing/mutation in the sister. No family history of sudden cardiac . He reports significant history of palpitations and has cardiac work up: - ECHO 10/13/2023 at [place] (images not available): Normal LVEF 55-60%. Reported [...] his symptoms. - Follow-up in 2 months [employer] Other 12-26-2023 Evaluation note* Encounter Date Diagnosis Assessment Notes Treatment Notes Treatment Clinical Notes Sep, Ventricular hypertrophy (ICD-10 - I51.7) Borderline [facility] Other 12-05-2023 Hospital Discharge instructions Patient Education [...] include: ?8 oz (237 mL) of milk, vnhrmnc-gbjhzruojzay-frbuw milk, and calcium- fortifiedfruit juice. Calcium-fortified means [...] ?Spinach (cooked), rhubarb, beets, sweet potatoes, and American chard. ?Peanuts. ?Potato chips, zambian fries, and baked potatoes with skin on. ?Nuts and nut products. ?Chocolate. If you regularly take a diuretic medicine, make sure to eat at least 1 or 2 servings of fruits or vegetables that are high in potassium each day. These include: ?Avocado. ?Banana. ?[place], prune, carrot, or tomato juice. ?Baked potato. [...] magnesium, fish oil, or vitamin B6. Take laku-svl-qmaufym and prescription medicines only as told by [...] Casseroles. Pizza. Lasagna. Frozen meals. Potato chips. Uruguayan fries. The items listed above may not [...] provider. Document Revised: 01/20/2023 Document Reviewed: 01/20/2023 [employer] Patient Education 2022 [employer]. Follow Up Care 09/01/2023 14:23:50 With:UNRULY GARDNER, VERO Urbina, URL Address: [address] [address] [id number] When: Unknown Comments:has f/u with [facility] 02/14/2024 [facility] 11-27-2023 Evaluation note* Encounter Date Diagnosis [...] ER this past week. Will recheck labs. [employer] Other 10-02-2023 Hospital Discharge instructions Patient Education [...] include: ?8 oz (237 mL) of milk, ykxnasz-bojvcebkovtx-vwecl milk, and calcium- fortifiedfruit juice. Calcium-fortified means [...] ?Spinach (cooked), rhubarb, beets, sweet potatoes, and American chard. ?Peanuts. ?Potato chips, zambian fries, and baked potatoes with skin on. ?Nuts and nut products. ?Chocolate. If you regularly take a diuretic medicine, make sure to eat at least 1 or 2 servings of fruits or vegetables that are high in potassium each day. These include: ?Avocado. ?Banana. ?[place], prune, carrot, or tomato juice. ?Baked potato. [...] magnesium, fish oil, or vitamin B6. Take zcmi-ews-qenqybd and prescription medicines only as told by [...] Casseroles. Pizza. Lasagna. Frozen meals. Potato chips. [place]ruguayan fries. The items listed above may not [...] provider. Document Revised: 06/21/2022 Document Reviewed: 06/21/2022 [employer] Patient Education 2022 [employer]. Follow Up Care 07/22/2023 15:08:09 With:NESTOR PERSON, Mina Nam, URL Address: [facility] [employer] [address] [place], [place] [id number]- When: Unknown Comments:Sched Cysto with retro Stent Placement w/pos ureteroscopy [facility] 09-14-2023 Evaluation note* Encounter Date Diagnosis [...] Suspected COVID-19 virus infection (ICD-10 - Z20.822) [employer] Other 07-31-2023 Evaluation note* Encounter Date Diagnosis Assessment Notes Treatment Notes Treatment Clinical Notes Apr, Viral gastroenteriti s (ICD-10 - A08.4) Vitals stable. No signs of acute abdomen on exam. Discussed exam and history is consistent with viral gastroenteritis. Discussed viral nature of illness and typical duration. Fluids and rest encouraged. [place] diet in small amounts as tolerated. May continue Kaopectate. Will Rx as needed Zofran for nausea. Work note given. Discussed contagious nature. Follow-up with PCP if not improving over the next 4 to 5 days, significantly worsening symptoms or high fevers. Patient verbalized understanding of treatment plan. [employer] Other 10-10-2022 History of Present illness Narrative* Froy Alonso LPN - 08/02/2022 3:00 PM EDT PATIENT AMBULATES T ROOM 14 . C/O COUGH CONGESTION AND STATES HE FEELS FOGGY . STATES HE WANTS STD TESTING * Kasia Urbina, RAQUEL-ENAMEL DRIER - 08/02/2022 3:00 PM EDT Subjective Patient [...] he knew he woke up at the [facility] house and he reports sexual acts were [...] ear normal. Nose: Nose normal. Mouth/Throat: Lips: [place]. Mouth: Mucous membranes are moist. Pharynx: Oropharynx [...] assistance. Advised pt to advance to either [facility] or health dept for complete blood [...] agreeable with the plan. [facility] Instructions* Patient Instructions* ISACC Walker - [...] help right away. Last Reviewed: October 2020 [facility] [place] Thania Trevino, MSN, BS, RNC-CARLA Updated: 12/02/2020 [facility] documented in this [facility]05-31-2022 Note PROCEDURE: XR CHEST 1 V REASON FOR STUDY/CLINICAL HISTORY: COUGH. COMPARISON STUDY: 02/12/2017. TECHNIQUE: Single view(s) of the chest presented for interpretation. FINDINGS: No acute cardiopulmonary process. Normal cardiomediastinal silhouette. No focal consolidation, edema, or large pleural effusion. No pneumothorax. No acute appearing focal significant bony abnormality. IMPRESSION: No acute localizing pulmonary pathology. Electronically authenticated by: ELISEO PIERCE Date: 2022-03-23 00:06[facility]03-01-2022 NoteHNO ID: [id number] Author: RALF Troy Service: ? Author Type: [...] for Vivitrol including comprehensive evaluation, referral to [facility] physician, prior authorization and referral to chronic care clinic. Patient states that it is difficult for him to get to [place] and would like something closer to where he is located. Provided patient contact information for [facility]. Patient declined [facility] evaluation. Provided [facility] contact information and instructed patient to call if interested in rescheduling appointment. TIFFANIE Troy, [facility] note No data available for this section [facility] Evaluation + Plan note Future Appointments Appointment Date:02/14/2024 02:30:00 PM Scheduled Provider:Mina BAEZ MD Location:[facility] Appointment Type:URO Office Visit [facility] evaluation note* Diagnosis APPOINTMENT CANCELLED- Primary [facility] Diagnosis Viral infection, unspecified- Primary Screening for STD (sexually transmitted disease) Anxiety about health documented in this encounter [facility] Diagnosis Accidental drug overdose, initial encounter- Primary documented in this encounter [facility] Work Phone: evaluation noteNo assessment information available [facility] Work Phone: Evaluation noteNo InformationNort [employer] Other Evaluation note* Diagnosis Onset Date Resolution Status Atopic dermatitis acute Generalized anxiety disorder with panic attacks acute [facility] Work Phone: Evaluation note* Diagnosis Onset Date Resolution Status Atopic dermatitis acute Generalized anxiety disorder with panic attacks acute Contact with and (suspected) exposure to covid-19 noneactive [facility] Work Phone: Evaluation note* Diagnosis Onset Date Resolution Status Atopic dermatitis acute Generalized anxiety disorder with panic attacks acute Contact with and (suspected) exposure to covid-19 noneactive Mild intermittent asthma with acute exacerbation noneactive [facility] Work Phone: Evaluation note* Diagnosis Onset Date Resolution Status Atopic dermatitis acute Generalized anxiety disorder with panic attacks acute Contact with and (suspected) exposure to covid-19 noneactive Mild intermittent asthma with acute exacerbation noneactive Bronchitis acute Mild intermittent asthma without complication acute [facility] Work Phone: Evaluation note* Diagnosis Onset Date Resolution Status Atopic dermatitis acute Generalized anxiety disorder with panic attacks acute Contact with and (suspected) exposure to covid-19 noneactive Mild intermittent asthma with acute exacerbation noneactive Bronchitis acute Mild intermittent asthma without complication acute Panic disorder acute [facility] Work Phone: Evaluation note* Diagnosis Onset Date Resolution Status Atopic dermatitis acute Generalized anxiety disorder with panic attacks acute Contact with and (suspected) exposure to covid-19 noneactive Mild intermittent asthma with acute exacerbation noneactive Mild intermittent asthma without complication acute Mild intermittent asthma without complication acute Panic disorder acute [facility] Work Phone: Evaluation note* Diagnosis Other hypertrophic cardiomyopathy (Multi) Other hypertrophic cardiomyopathy documented in this encounter [facility] Work Phone: Evaluation note* Diagnosis Onset Date Resolution Status Enlargement of left palatine tonsil acute Hoarseness of voice acute Left hip pain acute Paresthesia of left lower extremity acute Eustachian tube dysfunction acute Rash acute Warts acute Anxiety acute Asthma exacerbation acute [facility] Work Phone: Hisboig general Narrative - Reported* Type Description Date Medical History hernia Medical History anxiety Medical History asthma Medical History HSVZ Medical History ADD Medical History Chronic back pain Surgical History hernia x2 [employer] Other Hisvzss general Narrative - Reported* Type Description Date Medical History hernia Medical History anxiety Medical History asthma Medical History HSVZ Medical History ADD Medical History Chronic back pain Surgical History hernia x2 Surgical History lithotripsy 2022 [employer] Other Hisrdqk general Narrative - Reported* Type Description Date Medical History hernia Medical History anxiety Medical History asthma Medical History HSVZ Medical History ADD Medical History Chronic back pain Surgical History hernia x2 Surgical History lithotripsy 2022 Hospitalization History See Above [employer] Other Hospital Discharge instructions* Attachments The following attachments cannot be sent through Care Everywhere. * Opioids: General Info (Bulgarian) [facility] Work Phone: Hospital Discharge instructions Additional Instructions Percocets for severe pain You cannot work or drive when taking Percocet Tylenol or Motrin if needed for minor pain If needed for nausea vomiting Flomax daily Strain all urine Follow-up with urology as discussed Return here if you develop any fever, chills, increased pain vomiting or any other[facility] Work Phone: Hospital Discharge instructions Additional [...] other reasons. If it is to remain filler leaf cutter long, however, changes of the stent are required [...] appointment to remove the string stent [ ][facility] Work Phone: Hospital Discharge instructions No data available for this section [facility] Hospital Discharge instructions Additional Instructions Follow-up with your primary care doctor Return to ED if develop worsening symptoms or concernsMercy Memorial Hospital Work Phone: Hospital Discharge instructionsAmbulatory Orders* Referral to Neurology Location: None Selected [facility] Work Phone: Progress note No data available for this section [facility] Summary Purpose Family History Relationship Condition Age at Onset Recorded Date/T ashlee Not Specified No pertinent family history Unknown Advance Directives Documents on File Type Date Recorded 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 Expl anation Advance Directives and Living Will Power of Home Based Assistant Advance Directive Response Recorded Date/ Time Advance [...] Sick rash on hands Chest congestion sob [phone]; Bronchitis Reason for Visit Atopic dermatitis Generalized anxiety disorder with panic attacks Contact with and (suspected) exposure to covid-19 Mild intermittent asthma with acute exacerbation Bronchitis Mild intermittent asthma without complication Chief Complaint Referred By Vero Stern For Vent Sore Throat, Congestion Sick rash on hands Chest congestion sob [phone]; Bronchitis Worsening Anxiety Reason for Visit Atopic dermatitis Generalized anxiety disorder with panic attacks Contact with and (suspected) exposure to covid-19 Mild intermittent asthma with acute exacerbation Bronchitis Mild intermittent asthma without complication Panic disorder Chief Complaint Sore Throat, Congest ion Sick rash on hands Chest congestion sob [phone]; Bronchitis Worsening Anxiety zio patch Reason for Visit Atopic dermatitis Generalized anxiety disorder with panic attacks Contact with and (suspected) exposure to covid-19 Mild intermittent asthma with acute exacerbation Mild intermittent asthma without complication Mild intermittent asthma without complication Panic disorder Chief Complaint Chest congestion sob [phone]; Bronchitis Worsening Anxiety zio patch Discuss Medication Reason for Visit Contact with and (simon spected) exposure to covid-19 Mild intermittent asthma with acute exacerbation Mild intermittent asthma without complication Mild intermittent asthma without complication Panic disorder Left hip pain Paresthesia of left lower extremity Chief Complaint Chest congestion sob [phone]; Bronchitis Worsening Anxiety zio patch Discuss Medication warts on hand Reason for Visit Contact with and (simon spected) exposure to covid-19 Mild intermittent asthma with acute exacerbation Mild intermittent asthma without complication Mild intermittent asthma without complication Panic disorder Enlargement of left palatine tonsil Hoarseness of voice Left hip pain Paresthesia of left lower extremity Chief Complaint Discuss Medication warts on hand Sinus infection Reason for Visit Enlargement of left palatine tonsil Hoarseness of voice Left hip pain Paresthesia of left lower extremity Eustachian tube dysfunction Rash Warts Anxiety Asthma exacerbation Reason for Referral Specialty Diagnoses / Procedures Referred By Awilda solis Referred To Contact Radiology Diagnoses Other hypertrophic cardiomyopathy (Multi) Procedures MR cardiac resonance imaging for velocity flow mapping Joelle Gonzalez MD [address] [place] [address] as of 04/23/18 SANG JALLOH [id number] Referral ID Status Reason Start Date Expiration Date Visits Requested Visits Authorized [id number] Authorized Perform Procedure 03/06/2024 03/06/2025 1 1 Specialty Diagnoses / Procedures Referred By Awilda solis Referred To Contact Radiology Diagnoses Other hypertrophic cardiomyopathy (Multi) Procedures MR cardiac morphology and function w and wo IV contrast Joelle Gonzalez MD [address] [place] [address] as of 04/23/18 [place] [address] Referral ID Status Reason Start Date Expiration Date Visits Requested Visits Authorized [id number] Authorized Perform Procedure 01/23/2024 01/22/2025 1 1 Reason evaluate Diagnosis 1 Ventricular hypertro phy (I51.7) Referral Organization [facility] Referring Provider First Name Vero Referring Provider Last Name Ginrbacher Referring Provider Specialty Nurse Pract itioner Referred Organization [facility] Cardiology Referred Provider Joelle Gonzalez Referred Address [address] [place] [address],[place] [address],[place], [id number] Referred Provider Specialty Cardiovascul ar Disease Referral Priority Routine Additional Source Comments Source Comments (unrecognize d section and content) In the event this informatio n is protected by the Federal Confidentiality of Alcohol and Drug Abuse Patient Records regulations: The Federal rules restrict any use of the information to criminally investigate or prosecute any alcohol or drug abuse patient.[facility] Reason for Visit (unrecogniz ed section and content) Reason Comments Consult Reason Comments Nasal Congestion Cough Other Reason Comments Other Pt to ED due to feel ing sick and feeling like something is off. Specialty Diagnoses / Procedures Referred By Contac t Referred To Contact Radiology Diagnoses Other hypertrophic cardiomyopathy (Multi) Procedures MR cardiac morphology and function w and wo IV contrast Joelle Gonzalez MD [address] [place] [address] as of 04/23/18 Mitzi JALLOHEdgar [address] Referral ID Status Reason Start Date Expiration Date Visits Requested Visits Authorized [id number] Authorized Perform Procedure 01/23/2024 01/22/2025 1 1 (unrecognized sect ion and content) No Status Records FoundNo Status Records FoundNo Status Records FoundNo Status Records FoundNo Status Records FoundNo Status Records FoundNo Status Records Found INFORMATION SOURCE (unrecogn ized section and content) DATE CREATED AUTHOR 12/22/2021 [facility] DATE CREATED AUTHOR AUTHOR'S ORGANIZ ATION 08/21/2022 [facility] DATE CREATED AUTHOR AUTHOR'S ORGANIZ ATION 11/06/2022 [facility] DATE CREATED AUTHOR AUTHOR'S ORGANIZ ATION 01/18/2024 [facility] DATE CREATED AUTHOR AUTHOR'S ORGANIZ ATION 02/16/2024 [facility] DATE CREATED AUTHOR AUTHOR'S ORGANIZ ATION 05/12/2024 [facility] DATE CREATED AUTHOR AUTHOR'S ORGANIZ ATION 05/29/2024 [facility] EPIC Care Teams (unrecognized sec tion and content) [...] Member Role Status Dates Vero Stern APRN WEDDING DESIGNER-C Primary Care Provider Active Team Status: Inactive Member Role Status Dates La Nena Travis APRN Attending Provider Active Start: September 10, 2023 End: September 10, 2023 Team Status: Inactive Member Role Status Dates Vero Stern APRN WEDDING DESIGNER-C Attending Provider Act kira Start: September 19, 2023 End: September 19, 2023 Team Status: Inactive Member Role Status Dates Joelle Gonzalez MD Attending Provider Active Sta rt: November 04, 2023 End: November 04, 2023 Team Status: Inactive Member Role Status Dates Pura Kay WEDDING DESIGNER-C Attending Provider Active S tart: November 21, 2023 End: November 21, 2023 Team Status: Inactive Member Role Status Dates Vero Stern APRN WEDDING DESIGNER-C Attending Provider Act kira Start: November 23, 2023 End: November 23, 2023 Team Status: Inactive Member Role Status Dates Vero Stern APRN WEDDING DESIGNER-C Primary Care Provider, Attending Provider Active Start: December 07, 2023 End: December 07, 2023 Team Status: Inactive Member Role Status Dates Vero Stern APRN WEDDING DESIGNER-C Primary Care Provider Active Start: January 13, 2024 End: January 13, 2024 La Nena Travis APRN Attending Provider Active Start: January 13, 2024 End: January 13, 2024 Team Status: Inactive Member Role Status Dates Vero Stern APRN WEDDING DESIGNER-C Primary Care Provider Active Start: January 15, 2024 End: January 15, 2024 Sang Lovett DO Emergency Provider Active Sta rt: January 15, 2024 End: January 15, 2024 Team Status: Inactive Member Role Status Dates Vero Stern APRN WEDDING DESIGNER-C Primary Care Provider, Attending Provider Active Start: January 16, 2024 End: January 16, 2024 Team Status: Active Member Role Status Dates Vero Stern APRN WEDDING DESIGNER-C Primary Care Provider Active Start: January 18, 2024 Wily Solis DO Attending Provider Active Sta rt: January 18, 2024 Team Status: Inactive Member Role Status Dates Vero RAQUEL Stern WEDDING DESIGNER-C Primary Care Provider, Attending Provider Active Start: January 19, 2024 End: January 19, 2024 Team Status: Inactive Member Role Status Dates Vero Stern APRN WEDDING DESIGNER-C Primary Care Provider Active Start: February 08, 2024 End: February 08, 2024 Joelel Gonzalez MD Attending Provider Active Sta rt: February 08, 2024 End: February 08, 2024 Team Status: Active Member Role Status Dates Vero tSern APRN WEDDING DESIGNER-C Primary Care Provider Active Start: March 06, 2024 Tao NASH DO Attending Provider Active Start: March 06, 2024 Team Status: Inactive Member Role Status Dates Vero Stern APRN WEDDING DESIGNER-C Primary Care Provider, Attending Provider Active Start: March 23, 2024 End: March 23, 2024 Team Status: Inactive Member Role Status Dates Vero Stern APRN WEDDING DESIGNER-C Primary Care Provider, Attending Provider Active Start: April 11, 2024 End: April 11, 2024 Team Status: Inactive Member Role Status Dates Vero Stern APRN WEDDING DESIGNER-C Primary Care Provider, Attending Provider Active Start: June 05, 2024 End: June 05, 2024 Goals (unrecognized section and content) Goals [...] BE BASED ON THE PRIMARY CLINICAL RECORDS. [facility] [employer] [facility]. provides no warranty or guarantee of the accuracy or completeness of information in this document.
[2024-07-02 09:14] LABS: Internal Control Within Normal Limits; Strep A Antigen Screen Negative
== END 2024-07-02 09:25 | disposition home or self-care (01) ==
PROVIDERS: Emergency Provider Emergency Medicine; PCP Internal Medicine
DX: J02.9 Acute pharyngitis, unspecified (principal); Z87.891 Personal history of nicotine dependence
CPT/HCPCS: 87070; 87880; 99283

== ENCOUNTER 2024-10-04 12:53 | Outpatient (OUT) | payer OTHER, SELFPAY ==
[2024-10-04 13:19] LABS: Hemoglobin 15.9 g/dL (14.0-18.0)
[2024-10-04] MEDS: ALBUTEROL SULFATE 2.5 MG/3 ML VIAL NEB IH (14:13)
== END 2024-10-04 12:54 | disposition home or self-care (01) ==
LOC: CARD 12:54
PROVIDERS: PCP Internal Medicine; Visit Provider Internal Medicine
DX: J45.50 Severe persistent asthma, uncomplicated (principal)
CPT/HCPCS: 36415; 85018; 94060; 94726; 94729

== ENCOUNTER 2025-07-14 18:06 | Emergency (ER) | payer OTHER, SELFPAY ==
--- OUTSIDE RECORDS SUMMARY | 2023-08-31 08:45 | XMS_ITS | Continuity of Care Document ---
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 Role Phone Katelynn DYAN Gwyn Unavailable Unavailable Allergies, Adverse Reactions, Alerts Substance Reaction Status Criticality No Known Allergies Active No Inform ation Procedures Procedure Date Intraoral-periapical 1st Film [place]wig-single Film Limited Oral Eval Oral Hygiene Instruction Intraoral-complete Series (bw) Oral Hygiene Instruction Comp Oral Eval New/estab Patient 2022 Advance Directives Directive Yes / No Effective Date File Name No Information Encounters Encounter Description Practice Location Reason(s) For Visit Diagnoses Date Provider Providers Copied on Encounter [facility], [address] [place] [address], [id number], tel:[phone] Dental Clinic Encounter for screening for dental disorders Katelynn Pascal. [address] [place] [address], [id number], [place]. tel:[phone] [facility], [address] [place] [address], [id number], tel:[phone] Dental Clinic Dental new (chief complaint)D ental new (chief complaint) Encounter for screening for dental disorders Katelynn Pascal. [address] [place] [address], [id number], [place]. tel:[phone] Family History Family Member Type Diagnosis Age At Onset Mother Problem Alive and well Father Problem Alive and well Payers Payer name Insurance type Covered democrat ID Authoriza tion(s) D [facility] Medicaid [facility] [id number] D Medicaid Wrap - [facility] [id number] Social History Type Description Quantity Date Captured Comments Sex Male Smoking Status No Information Sexual Orientation Straight or heterosexual Gender Identity Male Chief Complaint And Reason For Visit No Information Reason For Referral Reason For Referral No Information Plan Of Treatment Date Type Action Status Goal PRAPARE ASSESSMENT. Due on A ug due Goal Influenza vaccine. Due on Au g due Goal RLP. Due on due Goal Tdap Vaccine. Due on 2022 due Goal Tdap. Due on due Goal Depression screening. Due on due History Of Present Illness Encounter Date Complaint History Of Prese nt Illness Dental new Dental new, esta b dental care Dental new Functional Status Date Functional Assessmen t No Information Instructions Date Instruction Additional Infor mation No Information Assessments Type Assessment Date No Information Patient Care Teams Name Effective Dates (start - stop) Status Members No Information
--- OUTSIDE RECORDS SUMMARY | 2024-07-31 10:30 | XMS_ITS ---
Author Organization [facility] in [place] Address [address] [place] [address] Care Team Providers Care Substance Abuse Specialist Name Role Phone Vero Stern CNP Primary Care Provider U Tao Jeff Unavailable [phone] Allergies Allergen (clinical drug ingredient) Drug/Non Drug Allergy documented on EMR Reaction Allergy Type Onset Date Status cefaclor Cefaclor unknown Drug Allergy Active Penicillin hives Drug Allergy Active REASON FOR VISIT 4WEEKS-ASTHMA Medications Medication SIG (Take, Route, Frequency, Duration) Notes Start Date End Date Status traZODone HCl 100 MG TAKE 1 TABLET BY MO UTH EVERY DAY AT BEDTIME Oral; Duration: 30 Days Active Ondansetron HCl 4 MG 1 tablet PRN nausea Orally Q6H; Duration: 10 days 03/06/2024 Active guaiFENesin-Codeine 100-10 MG/5ML 10mL for cough Orally Q12H; Duration: 120 days 03/06/2024 Active Albuterol Sulfate HFA 108 (90 Base) MCG/ACT INHALE 1 PUFF BY MOUTH EVERY 4 TO 6 HOURS NEEDED FOR BRONCHOSPASM Inhalation; Duration: 30 Days Active Trelegy Ellipta 200-62.5-25 MCG/ACT 1 puff Inhalation QD; Duration: 90 days Rinse after use 03/06/2024 Active Social History Tobacco Use: Social History Observation Description Date Details (start date - stop date) Former Smoker NA - NA Tobacco Control (Standard) Question Answer Notes Tobacco use: Former smoker How long has it been since y ou last smoked? 1-5 years Additional Findings: Tobacco non-user Ex -moderate cigarette smoker (10-19/day) Encounters Encounter Location Date Provider Diagnosis Pul[facility] [place] [address] [place] [address] 07/31/2024 Tao Kwong Plan Of Treatment No Information Progress Notes * Bob DAVILA DDOB: [birth year] (34 yo M)Acc No.[id number]:07/31/2024 UNLOCKED PROGRESS NOTE Follow Up Patient: Bob RONQUILLO Provider: Enoc Kwong DO :1990 A ge:33 Y S ex:Male Date:07/31/2024 Address:[address] [facility], [id number] Pcp:Vero Stern CNP Subjective: * Chief Complaints: * 1 . 4WEEKS-ASTHMA. * Medical History: S evere persistent asthma, uncomplicated, JAZZY (obstructive sleep apnea), ADD (attention deficit disorder), History of nephrolithiasis, History of tobacco abuse. * Surgical History: i nguinal hernia repair , tonsillectomy , septoplasty . * Hospitalization/Major Diagno stic Procedure: D enies Past Hospitalization. * Family History: N o Family History documented.. * Social History: T obacco Use: T obacco Control (Standard) T obacco use: F ormer smoker H ow long has it been since you last smoked??1-5 years A dditional Findings: Tobacco non-user E x-moderate cigarette smoker (10-19/day) Electronic Cigarette use C urrent user N o LM: Additional Tobacco Questions N umber of Years Pt Smoked: 1 2 Quit 2022 N umber of Packs per Day: 1 When did you stop smokin year ago. M iscellaneous: O ccupation O ccupation: W orks at home Musician Pets: none. D rugs/Alcohol: D rugs H ave you used drugs other than those for medical reasons in the past 12 months? N o D oes the Patient have a History of Drug Abuse in the Past? N o Caffeine I ntake: 1 -2 cups per day Coffee Do you drink alcohol?: No. Do you smoke marijuana?: Denies. * Medications: T aking Albuterol Sulfate HFA 108 (90 Base) MCG/ACT Aerosol Solution INHALE 1 PUFF BY MOUTH EVERY 4 TO 6 HOURS NEEDED FOR BRONCHOSPASM Inhalation , Taking guaiFENesin-Codeine 100-10 MG/5ML Solution 10mL for cough Orally Q12H , Taking Ondansetron HCl 4 MG Tablet 1 tablet PRN nausea Orally Q6H , Taking traZODone HCl 100 MG Tablet TAKE 1 TABLET BY MOUTH EVERY DAY AT BEDTIME Oral , Taking Trelegy Ellipta(Cnhsgqbfsnf-Mdumukzhb-Cklltb) 200-62.5-25 MCG/ACT Aerosol Powder Breath Activated 1 puff Inhalation QD Rinse after use * Allergies: P enicillin: hives - Allergy, Cefaclor: unknown - Allergy. Objective: * Vitals: Assessment: Plan: * Treatment: * Preventive Medicine: COVID Vaccination: H as patient had COVID Vaccination? COVID Vaccination N o Patient Refused Immunization Status: P neumovacc P t Refused. I nfluenza P t Refused. Screenings/Counseling: F ALL RISK SCREENING Fall Risk Assessment: N o falls in the past year Are you afraid of falling? N o T OBACCO ACTION PLAN Patient counselled on the dangers of tobacco use and urged to quit. 0 03/06/2024 Former Education on smoking effects provided?03/06/2024 Former F FILIBERTO EXCLUSION Reason: P atient Reason refused/declined Type of Patient Reason: D rug declined by patient B WA ACTION PLAN Above Normal BMI Follow-up D ietary management education, guidance, and counseling * * Electronic signature of Chani Kwong DO on 07/14/2025 at 06:09 PM EDT Sign off status: Pending Visit Status: C ANC (Cancelled) * Provider: Enoc Kwong DO Date: 1 Generated for Carly benites/Jonny/Cara on: 0 07/14/2025 06:09 PM EDT
--- OUTSIDE RECORDS SUMMARY | 2024-11-27 05:00 | XMS_ITS ---
Author Organization [facility] in [place] Address [address] [place] [address] Care Team Providers Care Enamel Machine Operator Name Role Phone Vero Stern CNP Primary Care Provider U Tao Jeff Unavailable [phone] REASON FOR VISIT 2 mos f/u Asthma [...] Encounter Location Date Provider Diagnosis Pulmonary Medicine [place] [address] [facility] [place] [address] 11/27/2024 Tao Kwong Plan Of Treatment No Information Progress Notes * Bob DAVILA DDOB: [birth year] (34 yo M)Acc No.[id number]:11/27/2024 UNLOCKED PROGRESS NOTE Follow Up Patient: Bob RONQUILLO Provider: Enoc Kwong DO :1990 A ge:34 Y S ex:Male Date:11/27/2024 Address:[address] [facility], [id number] Pcp:Vero Stern CNP Subjective: * Chief Complaints: [...] DAY AT BEDTIME Oral , Taking Trelegy Ellipta(Wwshhdsmszm-Kjqelcpbs-Wqbkkz) 200-62.5-25 MCG/ACT Aerosol Powder Breath Activated 1 [...] of Chani Kwong DO on 07/14/2025 at 06:10 PM EDT Sign off status: Pending Visit Status: R /S (Rescheduled) * Provider: Enoc Kwong DO Date: 0 11/27/2024 Generated for Carly benites/Jonny/Cara on: 0 07/14/2025 06:10 PM EDT
--- OUTSIDE RECORDS SUMMARY | 2025-02-12 04:00 | XMS_ITS ---
Author Organization [facility] in [place] Address [address] [place] [address] Care Team Providers Care Bus And Trolley Inspecting Dispatcher Name Role Phone Vero Stern CNP Primary Care Provider U Tao Jeff Unavailable [phone] Allergies Allergen (clinical drug ingredient) Drug/Non Drug Allergy documented on EMR Reaction Allergy Type Onset Date Status cefaclor Cefaclor unknown Drug Allergy Active Penicillin hives Drug Allergy Active REASON FOR VISIT 3m F/U - Asthma Medications Medication SIG (Take, Route, Frequency, Duration) Notes Start Date End Date Status Ondansetron HCl 4 MG 1 tablet PRN nausea Orally Q6H; Duration: 10 days 03/06/2024 Not-Taking guaiFENesin-Codeine 100-10 MG/5ML 10mL for cough Orally Q12H; Duration: 120 days 03/06/2024 Not-Wesley ing Trelegy Ellipta 200-62.5-25 MCG/ACT 1 puff Inhalation QD; Duration: 90 days Rinse after use Active Advair Diskus 250-50 MCG/ACT Inhalation; Duration: 30 Days Not-Taking traZODone HCl 100 MG TAKE 1 TABLET BY MO UT EVERY DAY AT BEDTIME Oral; Duration: 30 Days Active Symbicort 160-4.5 MCG/ACT 2 puffs Inhalation BID; Duration: 30 days Rinse after use 11/14/2024 Active Ondansetron 8 MG Oral; Duration: 15 Days Active Spiriva Respimat 1.25 MCG/ACT 2 puffs Inhalation QD; Duration: 30 days 11/14/2024 Active Gabapentin 800 MG Oral; Duration: 30 Days Active Omeprazole 40 MG Oral; Duration: 90 Days Active Famotidine 20 MG Oral; Duration: 30 Days Active Albuterol Sulfate HFA 108 (90 Base) MCG/ACT INHALE 1 PUFF BY MOUTH EVERY 4 TO 6 HOURS NEEDED FOR BRONCHOSPASM Inhalation; Duration: 30 Days Active ALPRAZolam 0.25 MG Oral; Duration: 5 Days Active Social History Tobacco Use: Social History Observation Description Date Details (start date - stop date) Former Smoker NA - NA Tobacco Control (Standard) Question Answer Notes Tobacco use: Former smoker How long has it been since y ou last smoked? 1-5 years Additional Findings: Tobacco non-user Ex -moderate cigarette smoker (10-19/day) Encounters Encounter Location Date Provider Diagnosis Pulmonary Medicine [place] [address] [place] [address] 02/12/2025 Tao Kwong Plan Of Treatment No Information Procedure Notes * Category Sub-Category Detail Notes PFT Data: 10/04/2024 - [facility] -FEV1/FVC: 71%-FEV1: 86%-FVC: 97%-RSK07-22%: Positive-RV: 107%-T%-DLCO: 78% Progress Notes * Bob DAVILA DDOB: [birth year] (34 yo M)Acc No.[id number]:02/12/2025 UNLOCKED PROGRESS NOTE Follow Up Patient: Bob RONQUILLO Provider: Enoc Kwong DO :1990 A ge:34 Y S ex:Male Date:02/12/2025 Address:[address] 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 3m F/U - Asthma. * Medical History: S evere persistent asthma, uncomplicated, JAZZY (obstructive sleep apnea), GERD (gastroesophageal reflux disease), ADD (attention deficit disorder), History of nephrolithiasis, [...] 8 MG Tablet Disintegrating Oral , Taking Spiriva Respimat(Tiotropium Griffin Monohydrate) 1.25 MCG/ACT Aerosol Solution 2 puffs Inhalation QD , Taking Symbicort(Budesonide-Formoterol Fumarate) 160-4.5 MCG/ACT Aerosol 2 puffs Inhalation BID Rinse after use, Taking traZODone HCl 100 MG Tablet TAKE 1 TABLET BY MOUTH EVERY DAY AT BEDTIME Oral , Taking Trelegy Ellipta(Rcbqpyvrkji-Sbwnbieuk-Aefynp) 200-62.5-25 MCG/ACT Aerosol Powder Breath Activated 1 puff Inhalation QD Rinse after use, Not-Taking/PRN Advair Diskus(Fluticasone-Salmeterol) 250-50 MCG/ACT Aerosol Powder Breath Activated Inhalation , Not-Taking/PRN guaiFENesin-Codeine 100-10 MG/5ML Solution 10mL for cough Orally Q12H , Not-Taking/PRN Ondansetron HCl 4 MG Tablet 1 tablet PRN nausea Orally Q6H * Allergies: P enicillin: hives - Allergy, Cefaclor: unknown - Allergy. Objective: * Vitals: Assessment: Plan: * Treatment: * Procedures: P FT: Data: 10/04/2024 - [facility] -FEV1/FVC: 71% -FEV1: 86% -FVC: 97% -KMF53-93%: Positive -RV: 107% -T% -DLCO: 78%. * Preventive Medicine: COVID Vaccination: H as [...] tobacco use and urged to quit. 0 11/14/2024 Former Education on smoking effects provided?11/14/2024 Former F FILIBERTO EXCLUSION Reason: P atient Reason refused/declined Type of Patient Reason: D rug declined by patient B AL ACTION PLAN Above Normal BMI Follow-up D ietary management education, guidance, and counseling * * Electronic signature of Chani Kwong DO on 07/14/2025 at 06:09 PM EDT Sign off status: Pending Visit Status: N /S N/C (No Show/No Charge) * Provider: Enoc Kwong DO Date: 0 02/12/2025 Generated for Carly benites/Jonny/Milagrositting on: 0 07/14/2025 06:09 PM EDT
--- OUTSIDE RECORDS SUMMARY | 2025-07-14 18:09 | XMS_ITS | Encounter Summary ---
Author Organization [facility] Address [address] [place] [facility] [place] [address] Care Team Providers Care Cryptologic Technician Operator/Analyst Name Role Phone Vero Stern NP Primary Care Provider Reason for Visit * Reason Comments Med Refill Encounter Details Date Type Department Care Team (Late st Contact Info) Description 09/06/2024 Refill [facility] [address] [facility] [address] [place] [address] Nicole Rey MD [address] [facility] [address] [place] [address] LPRD (laryngopharyngeal reflux disease) Social History Tobacco Use Types Packs/Day Years Used Date Smoking Tobacco: Former Cigarettes Smokeless Tobacco: Never Alcohol Use Standard Drinks/Week Comments Not Currently 0 (1 standard drink = 0.6 oz pur e alcohol) Sex and Gender Information Value Date Recorded Sex Assigned at Not on file Legal Sex Male 6:34 PM EDT Gender Identity Not on file Sexual Orientation Not on file documented as of this encounter Plan of Treatment Not on file documented as of this encounter Visit Diagnoses Diagnosis LPRD (laryngopharyngeal reflux disease) Acute laryngitis, without mention of obstruction documented in this encounter Care Teams Cryptologic Technician Operator/Analyst Relationship Specialty Start Date End Date Vero Stern NP [address] [facility] [address] [place], [place] [id number] PCP - General Family Medicine 03/26/24 documented as of this encounter
--- OUTSIDE RECORDS SUMMARY | 2025-07-14 18:09 | XMS_ITS | Clinical Summary ---
Author Organization [facility] Address [address] [facility] [place] [address] Care Team Providers Care Gas Engine Operator Compressors Name Role Phone Vero Stern APRN - CERTIFICATION AND SELECTION SPECIALIST Primary Care Pro vider Allergies Active Allergy Reactions Criticality Noted Date Comments Cefaclor Hives 04/02/2021 Other Reaction(s): Unknown Penicillins Anaphylaxis High 08/21/2022 Medications traZODone (DESYREL) 100 MG tablet 1 tablet nightly 12/07/2023 Active Active Problems No known active problems Social History Tobacco Use Types Packs/Day Years Used Date Smoking Tobacco: Former Cigarettes Smokeless Tobacco: Never Tobacco Cessation:Counseling Given: Not Answered Alcohol Use Standard Drinks/Week Comments Yes 0 (1 standard drink = 0.6 oz pur e alcohol) occasionally AUDIT-C Answer Date Recorded Q1: How often do you have a drink containing alc ohol? Monthly or less 10/09/2024 Q2: How many drinks containi ng alcohol do you have on a typical day when you are drinking? 1 or 2 10/09/2024 Q3: How often do you have si x or more drinks on one occasion? Never 10/09/2024 Interpersonal Safety Domain Source: IP Abuse Scr eening Answer Date Recorded Physical abuse Denies 10/09/2024 Verbal abuse Denies 10/09/2024 Emotional abuse Denies 10/09/2024 Financial abuse Denies 10/09/2024 Sexual abuse Denies 10/09/2024 Sex and Gender Information Value Date Recorded Sex Assigned at Not on file Legal Sex Male 4:22 PM EDT Gender Identity Not on file Sexual Orientation Not on file Last Filed Vital Signs Vital Sign Reading Time Taken Comments Blood Pressure 134/84 10/09/2024 7:08 PM EST Pulse 75 10/09/2024 9:31 PM EST Temperature 37.2 C (99 F) 10/09/2024 7:17 PM EST Respiratory Rate 16 10/09/2024 9:31 PM EST Oxygen Saturation 96% 10/09/2024 9:31 PM EST Inhaled Oxygen Concentration - - Weight 94.4 kg (208 lb 3.2 oz) 10/09/2024 7:08 P M EST Height 175.3 cm (5' 9 ) 10/09/2024 7:08 PM EST Body Mass Index 30.75 10/09/2024 7:08 PM EST Plan of Treatment Health Maintenance Due Date Last Done Comments Depression Screen 2001 Varicella vaccine (1 of 2 - 13+ 2-dose series) 2002 HIV screen 2004 Hepatitis C screen 2007 DTaP/Tdap/Td vaccine (1 - Tdap) 2008 Hepatitis B vaccine (1 of 3 - 19+ 3-dose series) 2008 Flu vaccine (#1) 05/24/2025 COVID-19 Vaccine ( - 2023-2 5 season) 2025 HPV vaccine (No Doses Required) Completed Hepatitis A vaccine Aged Out No longe r eligible based on patient's age to complete this topic Hib vaccine Aged Out No longer eligi ble based on patient's age to complete this topic Meningococcal (ACWY) vaccine Aged Out No longer eligible based on patient's age to complete this topic Meningococcal B vaccine Aged Out No l onger eligible based on patient's age to complete this topic Pneumococcal 0-49 years Vaccine Aged Out No longer eligible based on patient's age to complete this topic Polio vaccine Aged Out No longer elig ible based on patient's age to complete this topic Insurance [facility] [place] Care Teams Gas Engine Operator Compressors Relationship Specialty Start Date End Date Vero Stern APRN - CNP [address] [place] [address] PCP - General 09/11/24
--- OUTSIDE RECORDS SUMMARY | 2025-07-14 18:09 | XMS_ITS | Clinical Summary ---
Author Organization [facility] Address [id number] [address] [place] [address] Care Team Providers Care Manager Cosmetics Name Role Phone Unavailable Primary Care Provider Unavailabl e Allergies Active Allergy Reactions Criticality Noted Date Comments Cefaclor 04/02/2021 Penicillins 04/02/2021 Medications valACYclovir (VALTREX) 1000 mg tablet Take 1 tablet (1,000 mg total) by mouth in the morning. 10/06/2021 Active traZODone (DESYREL) 100 mg tablet Take 1 tablet (100 mg total) by mouth once daily at bedtime. 01/25/2023 Active Active Problems Problem Noted Date Diagnosed Date S/P tonsillectomy 06/22/2021 S/P nasal septoplasty 06/22/2021 Deviated septum 05/05/2021 Hypertrophy tonsils 05/05/2021 Family History Medical History Relation Name Comments No Known Problems Daughter No Known Problems Father No Known Problems Mother Hypertrophic cardiomyopathy Sister Relation Name Status Comments Daughter Alive Father Alive Mother Alive Sister Alive Social History Tobacco Use Types Packs/Day Years Used Date Smoking Tobacco: Former Cigarettes Q uit: 10/23/2017 Smokeless Tobacco: Never Tobacco Cessation:Counseling Given: Not Answered Alcohol Use Standard Drinks/Week Comments Never 0 (1 standard drink = 0.6 oz pur e alcohol) Social Connection and Isolation Panel [NHANES] A nswer Date Recorded In a typical week, how many times do you talk on the phone with family, friends, or neighbors? Once a week 03/25/2022 How often do you get togethe r with friends or relatives? Patient declined 03/25/2022 How often do you attend shinto or anabaptist serv ices? Patient declined 03/25/2022 Do you belong to any clubs o r organizations such as shinto groups, unions, fraternal or athletic groups, or school groups? No 03/25/2022 How often do you attend meet ings of the clubs or organizations you belong to? Patient declined 03/25/2022 Are you , , di vorced, , never , or living with a partner? Patient declined 03/25/2022 AUDIT-C Answer Date Recorded Q1: How often do you have a drink containing alc ohol? Patient declined 03/25/2022 Q2: How many drinks containi ng alcohol do you have on a typical day when you are drinking? Patient declined 03/25/2022 Q3: How often do you have si x or more drinks on one occasion? Patient declined 03/25/2022 Overall Financial Resource Strain (CARDIA) Answe r Date Recorded How hard is it for you to pa y for the very basics like food, housing, medical care, and heating? Patient declined 03/25/2022 PHQ-2 Answer Date Recorded Total Score 22 03/25/2022 [facility] - Occupational Stress Questionnaire Answer Date Recorded Do you feel stress - tense, restless, nervous, or anxious, or unable to sleep at night because your mind is troubled all the time - these days? To some extent 03/25/2022 Exercise Vital Sign Answer Date Recorde d On average, how many days pe r week do you engage in moderate to strenuous exercise (like a brisk walk)? 7 days 03/25/2022 On average, how many minutes do you engage in exercise at this level? 50 min 03/25/2022 PRAPARE - Transportation Answer Date Re corded In the past 12 months, has l ack of transportation kept you from medical appointments or from getting medications? Patient declined 03/25/2022 In the past 12 months, has l ack of transportation kept you from meetings, work, or from getting things needed for daily living? Patient declined 03/25/2022 Childcare Answer Date Recorded Do problems getting child ca re make it difficult for you to work or study? No 03/25/2022 Employment Answer Date Recorded Do you need help finding a [facility] career center and/or a training program? No 03/25/2022 Hunger Screening Answer Date Recorded Within the past 12 months we worried whether our food would run out before we got money to buy more. Never True 03/16/2023 Within the past 12 months th e food we bought just didn't last and we didn't have money to get more. Never True 03/16/2023 Purpose - Life Answer Date Recorded I have a purpose and direction in my life. Stron gly Disagree 03/25/2022 Education Answer Date Recorded What is the highest level of school you have completed or the highest degree you have received? GED or equivalent Sex and Gender Information Value Date Recorded Sex Assigned at Not on file Legal Sex Male 12:05 PM EDT Gender Identity Not on file Sexual Orientation Not on file Last Filed Vital Signs Vital Sign Reading Time Taken Comments Blood Pressure 124/82 03/16/2023 10:00 AM EDT Pulse 72 10/14/2021 2:50 PM EST Temperature 36.3 C (97.3 F) 11/10/2021 4:16 PM EST Respiratory Rate 16 11/10/2021 4:16 PM EST Oxygen Saturation 98% 11/10/2021 4:16 PM EST Inhaled Oxygen Concentration - - Weight 85.3 kg (188 lb) 03/16/2023 10:00 AM EDT Height 172.7 cm (5' 8 ) 03/16/2023 10:00 AM EDT Body Mass Index 28.59 03/16/2023 10:00 AM EDT Plan of Treatment Health Maintenance Due Date Last Done Comments Depression Screening 2001 Tobacco Screening 2001 DTaP,Tdap and Td Vaccines (1 - Tdap) 2008 Adult BMI Screening 03/16/2024 03/16/2023 Influenza Vaccine 06/24/2025 Medical Devices Not on file Insurance [facility] MEDICAID
--- OUTSIDE RECORDS SUMMARY | 2025-07-14 18:09 | XMS_ITS | Encounter Summary ---
Author Organization [facility] Address [facility] [place] [facility][id number] [address] [place] [address] Care Team Providers Care Credit Review Officer Name Role Phone Mary Yee APRN-INTEGRATED LOGISTICS SUPPORT MANAGER Primary Care Provid er Encounter Details Date Type Department Care Team (Late st Contact Info) Description 04/28/2021 Orders Only [facility] [address] [place] [address] Gin Ballard MA Blood tests for routine general physical examination Social History Tobacco Use Types Packs/Day Years Used Date Smoking Tobacco: Former Cigarettes Q uit: 10/23/2017 Smokeless Tobacco: Never Alcohol Use Standard Drinks/Week Comments Never 0 (1 standard drink = 0.6 oz pur e alcohol) PHQ-2 Answer Date Recorded Total Score 0 04/02/2021 Childcare Answer Date Recorded Childcare Unknown 04/04/2019 Employment Answer Date Recorded Employment Unknown 04/04/2019 Purpose - Life Answer Date Recorded Purpose and direction in life Unknown Sex and Gender Information Value Date Recorded Sex Assigned at Not on file Legal Sex Male 12:05 PM EDT Gender Identity Not on file Sexual Orientation Not on file COVID-19 Exposure Response Date Recorded In the last month, have you been in contact with someone who was confirmed or suspected to have Coronavirus / COVID-19? No / Unsure 04/02/2021 8:37 AM EDT documented as of this encounter Plan of Treatment Not on file documented as of this encounter Procedures Procedure Name Priority Date/Time Associated Diagnosis Comments CBC WITH AUTO DIFFERENTIAL Routine 04/21/2021 Blood tests for routine general physical examination TSH Routine 04/21/2021 Blood tests for routine general physical examination HEMOGLOBIN A1C Routine 04/21/2021 Blood tests for routine general physical examination LIPID PROFILE Routine 04/21/2021 Blood tests for routine general physical examination COMPREHENSIVE METABOLIC PANEL Routine 04/21/2021 Blood tests for routine general physical examination documented in this encounter Results * Hemoglobin A1c (04/21/2021) External Hemoglobin A1C 4.9 % SUNQUEST 04/21/2021 Mary Yee [facility] BLOOD ORDERABLES Final Result Performing Organization Address City/[facility]/ZIP Co de Phone Number SUNQUEST * TSH (04/21/2021) External Tsh 3.935 SUNQUEST 04/21/2021 Mary Yee [facility] BLOOD ORDERABLES Final Result Performing Organization Address [facility]/ZIP Co de Phone Number SUNQUEST * Lipid profile (04/21/2021) External Cholesterol 224 SUNQUEST External Hdl Cholesterol 49 SUNQUEST External Ldl (Calc) 151 SUNQUEST External Triglycerides 120 SUNQUEST External Very Low Lipoprotein 24 SUNQUEST 04/21/2021 Mary Yee [facility] Final Result SUNQUEST * Comprehensive metabolic panel (04/21/2021) External Albumin 4.3 SUNQUEST External Alt Sgpt 122 SUNQUEST External Anion Gap 14.3 SUNQUEST External Ast 47 SUNQUEST External Blood Urea Nitrogen Bun 12.0 SUNQUEST External Calcium Ca 9.2 SUNQUEST External Chloride 105 SUNQUEST External Co2 / Carbon Dioxide 27.1 SUNQUEST External Creatinine 0.89 SUNQUEST External Gfr Amer >60 SUNQUEST External Gfr Non Amer >60 SUNQUEST 04/21/2021 Mary Yee APRN-[facility] BLOOD ORDERABLES Edited Result - Final SUNQUEST * CBC auto differential (04/21/2021) External Wbc Count 4.9 SUNQUEST External Rbc Count 4.94 SUNQUEST External Hemoglobin 15.3 SUNQUEST External Hematocrit Hct 43.7 SUNQUEST External Mcv 88.5 SUNQUEST External MCH 31.0 SUNQUEST External Mchc 35.0 SUNQUEST External Rdw 11.9 SUNQUEST External Platelet Count 268 SUNQUEST External Mpv 10.5 SUNQUEST 04/21/2021 [facility] Final Result Performing Organization Address City/[facility]/ZIP Co de Phone Number SUNQUEST documented in this encounter Visit Diagnoses Diagnosis Blood tests for routine general physical examination Laboratory examination ordered as part of a routine general medical examination documented in this encounter Additional Health Concerns Infection Onset Date Last Indicated Resolved Time COVID-19 Rule-Out 09/30/2021 09/28/2021 09/30/2021 10:33 AM EST COVID-19 Rule-Out 12/21/2021 12/18/2021 12/21/2021 10:11 AM EST Assessment Noted Time PHQ-9 Depression Total Score: 0 04/02/20 9:18 AM EDT A Body Mass Index follow-up plan has been documented for the patient 04/06/2021 7:25 AM EDT documented as of this encounter Care Teams Credit Review Officer Relationship Specialty Start Date End Date Mary Yee APRN-CNP PCP - General Family Medicine 04/06/21 08/18/22 documented as of this encounter
--- OUTSIDE RECORDS SUMMARY | 2025-07-14 18:09 | XMS_ITS | Clinical Summary ---
Author Organization [facility] Address [address] [place], [place] [id number] Care Team Providers Care Wood Flooring Specialist Name Role Phone Vero Stern FOUR H AGENT Unavailable [phone] Social History Tobacco Use Types Packs/Day Years Used Date Smoking Tobacco: Never Assessed PHQ-2 Answer Date Recorded PHQ-2 score 0 12/21/2021 Area Deprivation Index Answer Date Larry rded National Score (1-100), lower number is lower ri sk 83 02/06/2025 State Score (1-10), lower number is lower risk 7 02/06/2025 Data from: https://www.neighborhoodatlas.medicine.[facility].edu/. Last address used for calculation [facility] 02/06/2025 Sex and Gender Information Value Date Recorded Sex Assigned at Not on file Legal Sex Male 2:06 PM EDT Gender Identity Not on file Sexual Orientation Not on file Plan of Treatment Health Maintenance Due Date Last Done Comments Anxiety Screening 2007 Depression Screening 2007 HIV Screening 2007 Hepatitis C Screening 2007 DTaP,Tdap,Td Vaccine (1 - Tdap) 2008 HPV Vaccine (1 - 3-dose SCDM series) 2016 Lipid Screening 2024 Influenza Vaccine (#1) 2025 Hepatitis B Vaccine Completed 07/31/2020, 03/20/2020, 02/21/2020 Insurance [facility] [address] [address] [facility] MEDICAID [facility] Care Teams Wood Flooring Specialist Relationship Specialty Start Date End Date Vero Stern NP [address] [place] [address] Nurse Practitioner 09/11/24
--- OUTSIDE RECORDS SUMMARY | 2025-07-14 18:09 | XMS_ITS | Clinical Summary ---
Author Organization [facility] Address [address] [place] [address] Care Team Providers Care Gaming Surveillance Observer Name Role Phone Vero Stern BELLOWS CHARGER ASSEMBLER Primary Care Provider Allergies Active Allergy Reactions Criticality Noted Date Comments Cefaclor Hives 04/02/2021 Other Reaction(s): Unknown Penicillin G Procaine 03/26/2024 Other Reaction(s): Unknown Penicillins Anaphylaxis,Hives High 04/02/2021 Medications traZODone (Desyrel) 100 MG tablet Take 100 mg by mouth at bedtime 4 Active valACYclovir (Valtrex) 1 g tablet Take 1,000 mg by mouth in the morning. 4 Active albuterol HFA (Ventolin HFA) 90 mcg/act inhaler Inhale 2 puffs every 6 (six) hours Active omeprazole (PriLOSEC) [address] capsuleIndicatio ns:LPRD (laryngopharynge al reflux disease) TAKE 1 CAPSULE (40 MG) BY MOUTH IN THE MORNING. TAKE BEFORE MEALS. DO NOT CRUSH OR CHEW.. 90 capsule 4 Active famotidine (Pepcid) 20 MG tabletIndication s:LPRD (laryngopharynge al reflux disease) TAKE 1 TABLET BY MOUTH AT BEDTIME 30 tablet 2 4 Active brompheniramine- pseudoephedrine- DM 30-2-10 MG/5ML syrupIndications :Cough, unspecified type Take 10 mL by mouth 4 (four) times a day as needed for congestion or cough 120 mL 5 Active Active Problems Problem Noted Date Diagnosed Date Obstructive sleep apnea syndrome 03/26/2024 Parasomnia 03/26/2024 S/P nasal septoplasty 06/22/2021 S/P tonsillectomy 06/22/2021 Deviated septum 05/05/2021 Hypertrophy of tonsils 05/05/2021 Social History Tobacco Use Types Packs/Day Years Used Date Smoking Tobacco: Former Cigarettes Smokeless Tobacco: Never Tobacco Cessation:Counseling Given: Not Answered Alcohol Use Standard Drinks/Week Comments Not Currently 0 (1 standard drink = 0.6 oz pur e alcohol) Sex and Gender Information Value Date Recorded Sex Assigned at Not on file Legal Sex Male 6:34 PM EDT Gender Identity Not on file Sexual Orientation Not on file Last Filed Vital Signs Vital Sign Reading Time Taken Comments Blood Pressure 144/66 01/07/2025 1:53 PM EDT Pulse 71 01/07/2025 1:53 PM EDT Temperature 36.4 C (97.6 F) 01/07/2025 1:53 PM EDT Respiratory Rate 20 01/07/2025 1:53 PM EDT Oxygen Saturation 95% 01/07/2025 1:53 PM EDT Inhaled Oxygen Concentration - - Weight 93 kg (205 lb) 01/07/2025 1:53 PM EDT Height 172.7 cm (5' 8 ) 05/28/2024 11:09 AM EDT Body Mass Index 31.17 05/28/2024 11:09 AM EDT Plan of Treatment Not on file Insurance [facility] MEDICAID Care Teams Gaming Surveillance Observer Relationship Specialty Start Date End Date Vero Stern NP [address] [place] [address] PCP - General Family Medicine 03/26/24
--- OUTSIDE RECORDS SUMMARY | 2025-07-14 18:10 | XMS_ITS | Encounter Summary ---
Author Organization [facility] Career[facility] [employer] Address [id number] [address] [place] [address] Care Team Providers Care Coloring Checker Name Role Phone Mary Yee APRN-FLAG SIGNALMAN Primary Care Provid er Encounter Details Date Type Department Care Team (Late st Contact Info) Description 10/21/2021 Orders Only [facility] [address] [place] [place] [address] External, Scanning Provider Social History Tobacco Use Types Packs/Day Years Used Date Smoking Tobacco: Former Cigarettes Q uit: 10/23/2017 Smokeless Tobacco: Never Alcohol Use Standard Drinks/Week Comments Never 0 (1 standard drink = 0.6 oz pur e alcohol) Social Connection and Isolat ion Panel [NHANES] Answer Date Recorded In a typical week, how many times do you talk on the phone with family, friends, or neighbors? More than three times a week 05/18/2021 How often do you get togethe r with friends or relatives? More than three times a week 05/18/2021 How often do you attend chur ch or religion services? More than 4 times per year 05/18/2021 Do you belong to any clubs o r organizations such as holiness groups, unions, fraternal or athletic groups, or school groups? Yes 05/18/2021 How often do you attend meet ings of the clubs or organizations you belong to? More than 4 times per year 05/18/2021 Are you , , di vorced, , never , or living with a partner? Never 05/18/2021 AUDIT-C Answer Date Recorded Q1: How often do you have a drink containing alc ohol? Never 05/18/2021 Q2: How many drinks containi ng alcohol do you have on a typical day when you are drinking? Patient declined 05/18/2021 Q3: How often do you have si x or more drinks on one occasion? Never 05/18/2021 Overall Financial Resource Strain (CARDIA) Answe r Date Recorded How hard is it for you to pa y for the very basics like food, housing, medical care, and heating? Hard 05/18/2021 PHQ-2 Answer Date Recorded Total Score 0 10/14/2021 [facility] of Occupat ional Health - Occupational Stress Questionnaire Answer Date Recorded Do you feel stress - tense, restless, nervous, or anxious, or unable to sleep at night because your mind is troubled all the time - these days? To some extent 05/18/2021 Exercise Vital Sign Answer Date Recorde d On average, how many days pe r week do you engage in moderate to strenuous exercise (like a brisk walk)? 6 days 05/18/2021 On average, how many minutes do you engage in exercise at this level? 50 min 05/18/2021 PRAPARE - Transportation Answer Date Re corded In the past 12 months, has l ack of transportation kept you from medical appointments or from getting medications? No 04/24 In the past 12 months, has l ack of transportation kept you from meetings, work, or from getting things needed for daily living? No 05/18/2021 Childcare Answer Date Recorded Do problems getting child ca re make it difficult for you to work or study? No 05/18/2021 Employment Answer Date Recorded Do you need help finding a adventist health tehachapial career center and/or a training program? No 05/18/2021 Purpose - Life Answer Date Recorded I have a purpose and direction in my life. Stronella gly Agree 05/18/2021 Education Answer Date Recorded What is the [...] have Coronavirus / COVID-19? No / Unsure 10/14/2021 2:48 PM EST documented as of this encounter Plan of Treatment Not on file documented as of this encounter Procedures Procedure Name Priority Date/Time Associated Diagnosis Comments GENERAL SLEEP STUDY Routine 10/21/2021 GENERAL SLEEP STUDY Routine 10/21/2021 documented in this encounter Results * General sleep study (10/21/2021) us Scanning Provider External SLEEP CENTER ORDERABL ES Final Result Performing Organization Address City/[facility]/ZIP Co de Phone Number MANUALLY TRANSCRIBED RESULTS * General sleep study (10/21/2021) us Scanning Provider External SLEEP CENTER ORDERABL ES Final Result Performing Organization Address [facility] Co de Phone Number MANUALLY TRANSCRIBED RESULTS documented in this encounter Visit Diagnoses Not on filedocumented in this encounter Additional Health Concerns Infection Onset Date Last Indicated Resolved Time COVID-19 Rule-Out 12/21/2021 12/18/2021 12/21/2021 10:11 AM EST Assessment Noted Time PHQ-9 Depression Total Score: 0 10/14/20 2:50 PM EST A Body Mass Index follow-up plan has been documented for the patient 10/19/2021 12:33 PM EST documented as of this encounter Care Teams Coloring Checker Relationship Specialty Start Date End Date Mary Yee, SUGAR SAMPLER-FLAG SIGNALMAN PCP - General Family Medicine 04/06/21 08/18/22 documented as of this encounter
--- OUTSIDE RECORDS SUMMARY | 2025-07-14 18:10 | XMS_ITS | Encounter Summary ---
Author Organization [employer] Address [id number] [address] [place] [address] Care Team Providers Care Spreading Machine Operator Name Role Phone Mary Yee APRN-PRE CERTIFICATION SPECIALIST Primary Care Provid er Encounter Details Date Type Department Care Team (Late st Contact Info) Description 09/30/2021 Orders Only [facility] [address] [place] [address] [place] [address] Kellee Frias CMA Cough with exposure to COVID-19 virus Social History Tobacco Use Types Packs/Day Years [...] often do you attend chur ch or latter-day services? More than 4 times per year 05/18/2021 Do you belong to any clubs o r organizations such as alevism groups, unions, fraternal or athletic groups, or [...] PHQ-2 Answer Date Recorded Total Score 0 07/06/2021 [facility] of Occupat ional Health - Occupational Stress [...] Recorded Do you need help finding a l ocal career center and/or a training program? No [...] or suspected to have Coronavirus / COVID-19? Yes 09/23/2021 9:25 AM EST documented as of this encounter Plan of Treatment Not on file documented as of this encounter Procedures Procedure Name Priority Date/Time Associated Diagnosis Comments SARS COV 2 (COVID-19) STAT 09/28/2021 Cough with exposure to COVID-19 virus documented in this encounter Results * SARS COV 2 (COVID-19)[Lab Collect] (09/28/2021) EXTERNAL SARS COV 2 Negative Negative SUNQUEST NASOPHARYNGEAL 09/28/2021 us Mary Yee APRN-PRE CERTIFICATION SPECIALIST MICROBIOLOGY - GENER AL ORDERABLES Edited Result - Final SUNQUEST documented in this encounter Visit Diagnoses Diagnosis Cough with exposure to COVID-19 virus documented in this encounter Additional Health Concerns Infection Onset Date Last Indicated Resolved Time COVID-19 Rule-Out 09/30/2021 09/28/2021 09/30/2021 10:33 AM EST COVID-19 Rule-Out 12/21/2021 12/18/2021 12/21/2021 10:11 AM EST Assessment Noted Time PHQ-9 Depression Total Score: 0 07/06/20 21 3:02 PM EDT A Body Mass Index follow-up plan has been documented for the patient 09/23/2021 4:42 PM EST documented as of this encounter Care Teams Spreading Machine Operator Relationship Specialty Start Date End Date Mary Yee APRN-PRE CERTIFICATION SPECIALIST PCP - General Family Medicine 04/06/21 08/18/22 documented as of this encounter
--- OUTSIDE RECORDS SUMMARY | 2025-07-14 18:10 | XMS_ITS | Patient Health Record ---
Author Organization [facility] Address [address] [facility] [place] [address] Care Team Providers Care Lieutenant Colonel Name Role Phone SANTY OBRIEN Unavailable Yu Ventura Unavailable [phone] Reason For Referral Reason 10/11 spoke with pt. he denied appt. and wanted counseling appt. canceled as he is only looking to get prescribed a short term anxiety medication and to wait into October was too long. Referring provider made aware referral is closed. 10/11 attempt. lvmsg requesting return call. PCP's office scheduled counseling appt. with me on phone. Counseling referral from PCP for anxiety Referral from PCP for eval and treatment of anxiety. Diagnosis 1 Encounter for screen ing examination for mental health and behavioral disorders (Z13.30) Referral Organization [facility] Referring Provider First Name SANTY Referring Provider Last Name MICAH Referring Provider Speciality Family [facility] icine Referred Provider Specialty Behavioral H ealth Referral Priority Routine Plan Of Treatment No Information Insurance Providers Payer Name Payer Address Payer Phone Subscriber Number Group Number Insured Name Patient Relationship to Insured Coverage Start Date Coverage End Date [facility] Medicaid [address] [place] [phone] [id number] MANUELA CHAIDEZ Self - patient is the insured [address] [facility] Medicaid [address] [place] [address] [id number] KAYLYNNANDREZEW Self - patient is the insured 4
--- OUTSIDE RECORDS SUMMARY | 2025-07-14 18:10 | XMS_ITS | Patient Health Record ---
Author Organization [facility] in [place] Address [address] [place] [address] Care Team Providers Care Power Manager Name Role Phone Vero Stern CNP Primary Care Provider U Tao Jeff Unavailable [phone] Allergies Allergen (clinical drug ingredient) Drug/Non Drug Allergy documented on EMR Reaction Allergy Type Onset Date Status cefaclor Cefaclor unknown Drug Allergy Active Penicillin hives Drug Allergy Active Results Component Value Reference Range Notes CBC W/AUTO DIFF Reviewed date:10/04/2024 03:34:05 PM Interpretation: Performing Lab: Notes/Report: IGE, IMMUNOGLOBULIN (TOTAL) Reviewed date:10/04/2024 03:34:20 PM Interpretation: Performing Lab: Notes/Report: ASPERGILLUS ABS (FLAVUS,FUMI GATUS, NIGER) QUAL Reviewed date:10/04/2024 03:35:10 PM Interpretation: Performing Lab: Notes/Report: ANCA (ANTINEUTROPHIL CYTOPLA SMIC AB SCREEN) Reviewed date:10/04/2024 03:34:55 PM Interpretation: Performing Lab: Notes/Report: RT pulmonary function test Reviewed date:10/10/2024 07:48:07 AM Interpretation: Performing Lab: Notes/Report: Source Facility: [place] [address] [address] Respiratory Report Signed Patient: MANUELA DAVILA MR#: [id number] : 1990 Acct:[id number] Age/Sex: 33 / M ADM Date: 10/04/24 Loc: CARD Attending Dr: Tao Kwong D.O. Ordering Physician: Tao Kwong D.O. Date of Service: 10/04/24 Procedure(s): RT pulmonary function test Accession Number(s): [id number] cc: [facility] Test Date: 2024-10-04 Pat Name: MANUELA DAVILA Department: Room: - Gender: Male Inspector Salvage: Trey May RRT : 1990 Requested By: Tao Kwong Order Number: [id number] Reading MD: Tao Kwong Interpretive Statements Pulmonary function testing was completed according to ATS criteria. Findings were considered accurate and reproducible, with exception of FVC which did not meet ATS standards. Apparently patient had a syncopal and near syncopal episodes with several maneuvers. Both pre- and post-bronchodilator values utilized for spirometry. Spirometry (based on pre-bronchodilator values): -FEV1/FVC: Low normal @ 71% -FEV1: Normal @ 86% -FVC: Normal @ 97% -There is a positive bronchodilator response in FEV1. Lung volumes by plethysmography (based on pre-bronchodilator values): -RV: Normal @ 107% -TLC: Normal @ 100% Diffusion capacity: -DLCO: Mild reduction @ 78% when corrected for Hb 15.9g/dL Flow-volume loop: -Mild obstructive pattern Impressions: -Spirometry trends towards mild obstruction with a positive bronchodilator response. Normal lung volumes. Very mildly reduced diffusion impairment. This can be seen in asthma + ILD or cardiopulmonary vascular disorders, asthma-COPD overlap, or COPD with a bronchodilator response. Clinical correlation required. Electronically Signed On 10-10-2024 6:56:28 EST by Tao Kwong Dictated By: Tao Kwong D.O. Signed By: 10/10/24 0656 DD/ 1322 TD/TT: Test Data Developer: HEMOGLOBIN Reviewed date:10/10/2024 11:16:12 AM Interpretation: Performing Lab: Notes/Report: [facility] , Hemoglobin 15.9 14.0-18.0 g/dL Performing Lab: see note ML - The [facility] Reason For Referral No Information Medications Medication SIG (Take, Route, Frequency, Duration) Notes Start Date End Date Status Ondansetron HCl 4 MG 1 tablet PRN nausea Orally Q6H; Duration: 10 days 03/06/2024 Not-Taking Famotidine 20 MG Oral; Duration: 30 Days Active Trelegy Ellipta 200-62.5-25 MCG/ACT 1 puff Inhalation QD; Duration: 90 days Rinse after use Active Advair Diskus 250-50 MCG/ACT Inhalation; Duration: 30 Days Not-Taking Symbicort 160-4.5 MCG/ACT 2 puffs Inhalation BID; Duration: 30 days Rinse after use 11/14/2024 Active traZODone HCl 100 MG TAKE 1 TABLET BY [facility] EVERY DAY AT BEDTIME Oral; Duration: 30 Days Active Ondansetron 8 MG Oral; Duration: 15 Days Active Spiriva Respimat 1.25 MCG/ACT 2 puffs Inhalation QD; Duration: 30 days 11/14/2024 Active Gabapentin 800 MG Oral; Duration: 30 Days Active Omeprazole 40 MG Oral; Duration: 90 Days Active Albuterol Sulfate HFA 108 (90 Base) MCG/ACT INHALE 1 PUFF BY MOUTH EVERY 4 TO 6 HOURS NEEDED FOR BRONCHOSPASM Inhalation; Duration: 30 Days Active guaiFENesin-Codeine 100-10 MG/5ML 10mL for cough Orally Q12H; Duration: 120 days 03/06/2024 Not-[place] ing ALPRAZolam 0.25 MG Oral; Duration: 5 Days Active Social History Tobacco Use: Social History Observation Description Date Details (start date - stop date) Former Smoker NA - NA Tobacco Control (Standard) Question Answer Notes Tobacco use: Former smoker How long has it been since y ou last smoked? 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) use of inhaled steroids (Z79.51) Active confirmed Problem Gastroesophageal reflux disease (453242217) GERD (gastroesophagea l reflux disease) (K21.9) Active confirmed Problem Obstructive sleep apnea syndrome (41517336) JAZZY (obstructive sleep apnea) (G47.33) Active confirmed Problem Ex-tobacco user (finding) (624273457) History of tobacco abuse (Z87.891) Active confirmed Vital Signs Heart Rate 61 /min 11/14/2024 Temperature 97.0 degrees Fahrenheit 11/14/2024 Respiratory Rate 18 /min 11/14/2024 Oximetry 98 % 11/14/2024 Blood pressure diastolic 79 mm Hg 11/14/2024 Height 69 in 11/14/2024 Blood pressure systolic 120 mm Hg 11/14/2024 Weight 207.2 lbs 11/14/2024 BMI 30.59 kg/m2 11/14/2024 Procedures Procedure Date Ordered Date Performed Result Body Sit e PFT (09420, 09637, 32590) 09/26/2024 10/04/2024 N/A Inhaler Teaching/Aerosol-performed 11/14/2024 11/14/2024 N /A Encounters Encounter Location Date Provider Diagnosis Pulmonary Medicine [address] [address] 09/26/2024 [facility] Severe persistent asthma, uncomplicated J45.50 ; GERD (gastroesophageal reflux disease) K21.9 ; JAZZY (obstructive sleep apnea) G47.33 ; History of tobacco abuse Z87.891 ; nursing home (current) use of inhaled steroids Z79.51 and Obesity, unspecified E66.9 [facility] [address] [place] [address] 11/14/2024 [facility] Severe persistent asthma, uncomplicated J45.50 ; GERD (gastroesophageal reflux disease) K21.9 ; JAZZY (obstructive sleep apnea) G47.33 ; History of tobacco abuse Z87.891 ; exterminator helper termite (current) use of inhaled steroids Z79.51 and Obesity, unspecified E66.9 [facility] Medicine [address] [place] [address] 07/31/2024 [facility] Pulmonary [facility] [address] [place] [address] 10/04/2024 [facility] Pulmonary [facility] [address] [place] [address] 11/20/2024 [facility] Pul[facility] Medicine [address] [place] [address] 02/12/2025 Tao Kwong Assessments Encounter Date Diagnosis (ICD Code) Assessment Notes Treatment Notes Treatment Clinical Notes Section Notes 09/26/2024 Severe persistent asthma, uncomplicated (ICD-10 - J45.50) Prior treatment: Trelegy 200 > Advair 100/50 Patient states symptoms continue to worsen. He has had further exacerbations of asthma over the past 7 months with more ER visits and prednisone use. Previously had 5 ER visits between September 2023 and February 2024. There is a long lapse in follow-up, and patient is essentially where he was during his initial visit. Discussed with him that there is a correlation between gastric reflux and asthma symptoms that are uncontrolled. He has an appoint with Dr. Gibson tomorrow, so I encouraged patient to follow-up with him and I will not make any recommendations from a medication standpoint regarding reflux treatment. In the meantime, I suggested returning to Trelegy 200. I would like to avoid further prednisone use as it can contribute to GI irritation and ulcers. I also recommended obtaining a PFT at this time. Additionally, ordering labs for difficult to treat asthma and asthma mimics including eosinophils (though previously only 200), IgE, ANCA, and Aspergillus antibodies. F/U 1-2 months 09/26/2024 GERD (gastroesophageal reflux disease) (ICD-10 - K21.9) Breakthrough symptoms despite PPI in the morning and H2 antagonist in the evening. Discussed correlation between uncontrolled reflux and asthma. He has appointment with Dr. Gibson tomorrow; patient was strongly encouraged to keep that visit. I am not going to change his medication regimen at this current time regarding antireflux. I did advise the patient to begin keeping a food diary including what he eats and drinks and what time in the evening to see if there is anything he he can change on his part. 11/14/2024 Severe persistent asthma, uncomplicated (ICD-10 - J45.50) Prior treatment: Trelegy 200 > Advair 250/50 Advair 100/50 Patient had another exacerbation 10/03/2024 leading to an ER visit. Trelegy helps, but I explained to the patient that it is not covered via Medicaid unless there are a certain number of other medications failed. Advair 250/50 had some benefit, but only 60% of where he feels he should be; Trelegy 200 was 90-100%. Additionally, he was using albuterol more often with Advair compared to Trelegy. Labs were ordered to look into asthma mimics; ANCA and Aspergillus are negative. Eosinophils were only 200, so anti-IL5 therapy is not a great option (e.g. Fasenra, Nucala). IgE is 50; possible that he could be a Xolair candidate: Based on this level and his current weight (94kg), his dose would be ~300mg Q4 weeks. Patient voiced he is not interested in the infusion at this time. Discussed again the correlation with GERD and asthma; however, this is now controlled after following up with GI. At this point, I suggested changing his inhaler regimen to see if there is any better response. Will discontinue Advair and go to Symbicort 160 along with Spiriva 1.25. Discussed that this is an equivalent combination to Trelegy. Spiriva inhaler demonstration was performed with the patient. Appropriate technique with the Respimat device was demonstrated. Proper timing for administration was reviewed. Recommended he use Symbicort 2 puffs and then follow with Spiriva 2 puffs in the morning, and then Symbicort 2 puffs in the evening. He is to rinse/gargle after completing the entire regimen. He voiced understanding to these instructions. He will follow-up in 3 months to evaluate response to the Spiriva/Symbicort combination. If he is still uncontrolled, will send in Trelegy 200 for prior Auth. If he continues having exacerbations on Trelegy, then he is likely steroid-dependent at that point (giving the number of ER visits he is had in the past) and could be a Dupixent candidate versus discussion of Xolair. 11/14/2024 GERD (gastroesophageal reflux disease) (ICD-10 - K21.9) Patient states he is being better controlled now with omeprazole 40 mg in morning and famotidine 20 mg in the evening. If he has any further symptoms, follow-up with Dr. Gibson (GI). 09/26/2024 JAZZY (obstructive sleep apnea) (ICD-10 - G47.33) Discussion is on the backburner until his asthma and GERD are better controlled. 09/26/2024 History of tobacco abuse (ICD-10 - Z87.891) 1ppd x 12 years, quit last year. He was counseled not to restart smoking. He states it agitates his breathing too much and he has no desire to start back up. 11/14/2024 JAZZY (obstructive sleep apnea) (ICD-10 - G47.33) Will address once his asthma is controlled. 11/14/2024 History of tobacco abuse (ICD-10 - Z87.891) 1ppd x 12 years, quit 2022. He will not meet current LDCT screening criteria. DLCO was slightly low at 78%; discussed that that potentially could indicate underlying COPD/asthma COPD overlap. However, this is only one point in time, so would need to see several other points to definitively state that the DLCO is persistently low. 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 09/26/2024 Obesity, unspecified (ICD-10 - E66.9) Patient's weight is inducing a restrictive pulmonary physiology. Weight loss indicated: Decrease calories, increase activity. 11/14/2024 exterminator helper termite (current) use of inhaled steroids (ICD-10 - Z79.51) Patient was counseled to rinse & gargle with water after inhaled corticosteroid use. 11/14/2024 Obesity, unspecified (ICD-10 - E66.9) Patient's weight is inducing a restrictive pulmonary physiology. Weight loss indicated: Decrease calories, increase activity. 09/26/2024 Other Patient requested something for nausea. Rx'd Zofran. 11/14/2024 Other Patient requested something for nausea. Rx'd Zofran. Plan Of Treatment No Information Insurance Providers Payer Name Payer Address Payer Phone Subscriber Number Group Number Insured Name Patient Relationship to Insured Coverage Start Date Coverage End Date [employer] [place] [employer] [address] [place] [address] [id number] Manuela Davila Self - patient is the insured Medical (General) History Medical History History ICD Code Severe persistent asthma, uncomplicated J45.50 JAZZY (obstructive sleep apnea) G47.33 GERD (gastroesophageal reflux disease) K 21.9 ADD (attention deficit disorder) F90.0 History of nephrolithiasis Z87.442 History of tobacco abuse Z87.891 Surgical History Surgery Date(Month/Year) inguinal hernia repair tonsillectomy septoplasty
--- OUTSIDE RECORDS SUMMARY | 2025-07-14 18:10 | XMS_ITS | Patient Health Record ---
Author Organization [facility] office Address [address] [place] [address] Care Team Providers Care Magnetic Resonance Imaging Coordinator Name Role Phone WOO FRODE Primary Care Provider JONNATHAN Mosqueda Unavailable [phone] Allergies Allergen (clinical drug ingredient) Drug/Non Drug Allergy documented on EMR Reaction Allergy Type Onset Date Status cefaclor Cefaclor Unknown Drug Allergy Active penicillamine Penicillamine Unknown Drug Allergy Active Reason For Referral No Information Medications Medication SIG (Take, Route, Fr equency, Duration) Notes Start Date End Date Status Percocet 7.5-325 MG 1 tablet as needed O rally every 4-6 hrs for pain max 4/day; Duration: 30 days Active Narcan 4 MG/0.1ML as directed Nasally; Duration: 1 days Not-Taking Ibuprofen 600 MG 1 tablet with food o r milk as needed Orally Three times a day Active Aleve 220 MG 1 tablet with food o r milk as needed Orally every 12 hrs Active Adderall 30 MG 1 tablet Orally Twice a day Active Gabapentin 600 MG 1 tablet Orally Twice a day Active Social History Tobacco Use: Social History Observation Description Date Details (start date - stop date) Never Smoker NA - NA Tobacco Use/Smoking Question Answer Notes Are you a nonsmoker Problems Problem Type SNOMED Code ICD Code Onset Dates Problem Status W/U Status Risk Notes Problem Chronic pain syndrome (864479374) CHRONIC PAIN SYNDROME (G89.4) Active confirmed Problem Thoracic spondylosis without myelopathy (218849273) THORACIC FACET ARTHROPATHY (M47.814) Active confirmed Plan Of Treatment No Information Insurance Providers Payer Name Payer Address Payer Phone Subscriber Number Group Number Insured Name Patient Relationship to Insured Coverage Start Date Coverage End Date [employer] [address] [address] [place] [phone] [id number] MANUELA CHAIDEZ Self - patient is the insured Medical (General) History Medical History History ICD Code Erectile Dysfunction Asthma Depression Anxiety Attention deficit disorder, unspecified hyperactivity presence F98.8 Sleep Apnea Surgical History Surgery Date(Month/Year) Inguinal Hernia Repair Hernia Repair Hospitalization History Reason Date(Month/Year) per above surgical list
--- OUTSIDE RECORDS SUMMARY | 2025-07-14 18:11 | XMS_ITS | Encounter Summary ---
Author Organization [facility] Address [address] [place] [address] Phone Care Team Providers Care Sewer Pipe Cleaner Name Role Phone Unavailable Primary Care Provider Unavailabl e Reason for Referral * Imaging (Routine) - Authorized Specialty Diagnoses / Procedures Referred By Conthonorio t Referred To Contact Radiology Diagnoses Other hypertrophic cardiomyopathy (Multi) Procedures MR cardiac morphology and function w and wo IV contrast Bebo Reagan MD [address] as of 04/23/18 [place] [address] Phone: tel: fax: Referral ID Status Reason Start Date Expiration Date Visits Requested Visits Authorized [id number] Authorized Perform Procedure 01/23/2024 01/22/2025 1 1 Encounter Details Date Type Department Care Team (Latest Contact Info) Description 01/23/2024 Transcribe Orders [facility] [address] [place] [place] [address] Bebo Reagan MD [address] as of 04/23/18 [place] [address] Other hypertrophic cardiomyopathy (Multi) (Primary Dx) Social History Tobacco Use Types Packs/Day Years Used Date Smoking Tobacco: Never Assessed Sex and Gender Information Value Date Recorded Sex Assigned at Not on file Legal Sex Male 2:58 PM EDT Gender Identity Not on file Sexual Orientation Not on file documented as of this encounter Plan of Treatment Not on file documented as of this encounter Results * MR cardiac morphology and function w and wo IV contrast (04/04/2024 3:17 PM EDT) Anatomical Region Laterality Modality Thoracic, Head neck Magnetic Res onance 04/05/2024 1:47 PM EDT 04/05/2024 1:47 PM EDT Impressions 04/05/2024 1:46 PM EDT 1. Normal left ventricular cavity size and [...] evidence of ARVC. MACRO: None Signed by: Declan Sanders 04/05/2024 1:46 PM Dictation workstation: [id number] [facility] 04/05/2024 1:46 PM EDT Interpreted By: Declan Sanders, STUDY: MR CARDIAC RESONANCE IMAGING FOR VELOCITY FLOW MAPPING; MR CARDIAC MORPHOLOGY AND FUNCTION W AND WO IV CONTRAST; 04/04/2024 3:17 pm INDICATION: Signs/Symptoms:HOCM; Signs/Symptoms:.. This study is performed to assess myocardial viability and damage, and to quantitate left ventricular and valvular function. COMPARISON: None. ACCESSION NUMBER(S): [id number]; [id number] ORDERING CLINICIAN: BEBO REAGAN TECHNIQUE: Balderrama 1.5 Gillian MRI scanner. Turbo [...] reveals no abnormalities of the visualized organs. Procedure Note Declan Sanders, DO - 04/05/2024 Interpreted By: Declan Sanders, STUDY: MR CARDIAC RESONANCE IMAGING FOR VELOCITY FLOW MAPPING; MR CARDIAC MORPHOLOGY AND FUNCTION W AND WO IV CONTRAST; 04/04/2024 3:17 pm INDICATION: Signs/Symptoms:HOCM; Signs/Symptoms:.. This study is performed to assess myocardial viability and damage, and to quantitate left ventricular and valvular function. COMPARISON: None. ACCESSION NUMBER(S): [id number]; [id number] ORDERING CLINICIAN: BEBO REAGAN TECHNIQUE: Balderrama 1.5 Gillian MRI scanner. Turbo [...] evidence of ARVC. MACRO: None Signed by: Declan Sanders 04/05/2024 1:46 PM Dictation workstation: [id number] us Bebo Reagan MD IMG MRI PROCEDURES Fay javed Result documented in this encounter Visit Diagnoses Diagnosis Other hypertrophic cardiomyopathy (Multi)- Primary Other hypertrophic cardiomyopathy Other hypertrophic cardiomyopathy (Multi) Other hypertrophic cardiomyopathy documented in this encounter
--- OUTSIDE RECORDS SUMMARY | 2025-07-14 18:11 | XMS_ITS | Encounter Summary ---
Author Organization [employer] [facility] [employer] Address [id number] [address] [place] [address] Care Team Providers Care Blanching Machine Operator Name Role Phone Mary Yee APRN-DIALYSIS NURSE Primary Care Provid er Encounter Details Date Type Department Care Team (Late st Contact Info) Description 12/16/2021 Telephone [facility] [address] [place] [address] Kellee Frias CMA Social History Tobacco Use Types Packs/Day Years [...] often do you attend chur ch or yarsani services? More than 4 times per year 05/18/2021 Do you belong to any clubs o r organizations such as cheondoism groups, unions, fraternal or athletic groups, or [...] PHQ-2 Answer Date Recorded Total Score 0 11/10/2021 [facility] [place] of Occupat ional Health - Occupational Stress [...] Recorded Do you need help finding a [facility] and/or a training program? No 05/18/2021 Purpose - Life Answer Date Recorded I have a purpose and direction in my life. Stron gly Agree 05/18/2021 Education Answer Date Recorded [...] documented as of this encounter Visit Diagnoses Not on filedocumented in this encounter Additional Health Concerns Infection Onset Date Last Indicated Resolved Time COVID-19 Rule-Out 12/21/2021 12/18/2021 12/21/2021 10:11 AM EST Assessment Noted Time PHQ-9 Depression Total Score: 0 11/10/19 4:17 PM EST A Body Mass Index follow-up plan has been documented for the patient 11/16/2021 10:12 AM EST documented as of this encounter Care Teams Blanching Machine Operator Relationship Specialty Start Date End Date Mary Yee, RAQUEL-DIALYSIS NURSE PCP - General Family Medicine 04/06/21 08/18/22 documented as of this encounter
--- OUTSIDE RECORDS SUMMARY | 2025-07-14 18:11 | XMS_ITS | Encounter Summary ---
Author Organization [employer] Address [id number] [address] [place] [address] Care Team Providers Care Car Mechanic Name Role Phone Mary Yee APRN-BATTERY PARTS ASSEMBLER Primary Care Provid er Encounter Details Date Type Department Care Team (Late st Contact Info) Description 07/06/2021 Telephone [facility] [address] [place] [address] [address] Kellee Frias CMA Social History Tobacco Use [...] often do you attend chur ch or congregational services? More than 4 times per year 05/18/2021 Do you belong to any clubs o r organizations such as adventist groups, unions, fraternal or athletic groups, or [...] Answer Date Recorded Total Score 0 07/06/2021 [facility] [place] of Occupat ional Health - Occupational Stress [...] Recorded Do you need help finding a [employer] career center and/or a training program? No [...] have Coronavirus / COVID-19? No / Unsure 07/06/2021 2:59 PM EDT documented as of this encounter Miscellaneous Notes * Telephone Encounter - Kellee Frias CMA - 07/06/2021 2:05 PM EDT Pt said he no longer wishes to be on controlled meds and is currently seeking a dr to prescribe vivitrol. He said most clinics he is calling prescribe suboxone and he wishes to stay away from that. Pt would no longer like the gabapentin and would like to cancel the script. He said he did have tonsils removed but it did not seem to help, so he is keeping appt in July to discuss a possible sleep study. * Telephone Encounter - ISACC Gibbs - 07/06/2021 2:05 PM EDT Thank you for the update. I was not planning on reordering gabapentin. If he needs any help, we arehere to help for available resources. documented in this encounter Plan of Treatment Not on [...] plan has been documented for the patient 05/18/2021 5:48 PM EDT documented as of this encounter Care Teams Car Mechanic Relationship Specialty Start Date End Date Mary Yee APRN-CNP PCP - General Family Medicine 04/06/21 08/18/22 documented as of this encounter
--- OUTSIDE RECORDS SUMMARY | 2025-07-14 18:11 | XMS_ITS | CCD ---
Author Organization [facility] Care Team Providers Care Port Steward Name Role Phone Unavailable Primary Care Provider [...] Consulting Unavailable Claire Rothman Unavailable La Nena Trvais Unavailable NO FAMILY, PHYSICIAN Primary Care Provider Unava ilable RAQUEL Robertson Emergency Provider [phone] MD Mina Mccloud Attending Provider Vero Stern Unavailable [phone] WILY DOVER Primary Care Physician Joelle Gonzalez Unavailable Pura Kay Unavailable RAQUEL Stern Primary Care Provider DO Sang Lovett Emergency Provider VERO MOSS Attending Unavailable Mina MCCLOUD Attending Unavailable Mina MCCLOUD Attending Unavailable Mina MCCLOUD Referring Unavailable Mnia MCCLOUD Attending Unavailable Mina MCCLOUD Attending Unavailable Mina MCCLOUD Attending Unavailable Unavailable Primary Care Provider UnavailJOELLE Bianchi Referring Unavailab le Rohrbacher GRAIN SPOUTER - SENIOR COURTROOM CLERK, [facility] Primary Care Pro vider Rohrbacher PROPELLANT CHARGE LOADER, Vero Unavailable [phone] Rohrbacher PROPELLANT CHARGE LOADER, Vero A Primary Care Provider MILENA ROSADO Attending Unavailable ROHRBACHER, [facility] Primary Care Unavailable VALENTINA LLANOS Attending Unavailable ROHRBACHER, [facility] Primary Care Unavailable Rohrbacher GRAIN SPOUTER, Vero Primary Care Provider Rohrbacher GRAIN SPOUTER, Vero Attending Provider Tao Kwong DO Other Provider Rich Cooper PA-C Emergency Provider [phone] Yessenia Mosher DO Emergency Provider [phone] Philip Gibson MD Attending Provider Kenroy Brandt DO Emergency Provider Rich Cooper Admitting Unavailable Rich Cooper Attending Unavailable Rohrbacher, Vero Primary Care Unavailable Yessenia Mosher Admitting Unavailable Yessenia Mosher Attending Unavailable Rohrbacher, [facility] Primary Care Unavailable Tao Kwong Consulting Unavailable Rohrbacher, [facility] Primary Care Unavailable Rohrbacher, Vero Attending Unavailable Rohrbacher, Vero Admitting Unavailable Philip Gibson Admitting Unavailable Philip Gibson Attending Unavailable [facility], [facility] Primary Care Unavailable Kenroy Brandt Admitting Unavailable Kenroy Brandt Attending Unavailable Rohrbacher, Vero Primary Care Unavailable Sang Lovett Attending Unavailable Rohrbacher, Vero Primary Care Unavailable Sang Lovett Admitting Unavailable BHARAT KEATING Attending Unavailable ANNA FORD Attending Unavailable ROHRBACHER, VERO A Referring Unavailab ANNA Noel Attending Unavailable Allergies Allergy Classification Reported Allergen(s) Allergy Type Date of Onset Reaction(s) Facility (20 sources) Cefaclor; Translations: [cefaclor] Drug Allergy 04-02-20 21 Nausea, Hives [facility] (18 sources) Penicillins Allergy to substance 08-02-20 22 Nausea, Anaphylaxis [facility] (13 sources) Cefaclor; Translations: [Ceclor] Drug Allergy 09-29-20 13 hives [facility] Rep[facility] (1 source) Penicillins Drug allergy (disorder) 09-29-20 13 [facility] Repository (20 sources) Penicillin G Drug Allergy 12-07-19 24 [facility] (5 sources) Penicillin; Translations: [penicillin] Drug Allergy [facility] (2 sources) HYDROmorphone Drug Allergy 08-08-20 23 [facility] (1 source) ALLERGIES NOT ON FILE; Translations: [ALLERGIES NOT ON FILE] Propensity to adverse reactions (disorder) [facility] Repository (3 sources) Penicillin G procaine Allergy to substance 03-26-20 24 [facility] (3 sources) Penicillins Drug Intolerance 04-02-20 21 Anaphylaxis, Hives [facility] (1 source) Cefaclor Drug Allergy 11-20-19 25 [facility] Repository (1 source) Penicillin Drug Allergy 09-26-20 24 [facility] Rep[facility] (1 source) Penicillins Drug allergy (disorder) 11-20-19 25 [facility] Repository Medications Current Medications Medication Drug Class(es) Dates Sig (Normalized) Sig (Original) acetaminophen 325 mg / oxyCODONE hydrochloride 5 mg oral tablet (1 source) Opioid Agonist Start: 07-19-2023 take 1 tablet by mouth every four to six hours Oxycodone-Acetamin ophen (Percocet) 5-325 mg tablet Active 1 TAB PO EVERY 4-6 HOURS 12 3 July 19, 2023 [id number] 200 actuat albuterol 0.09 mg/actuat metered dose inhaler (20 sources) beta2-Adrenergic Agonist Start: 01-15-2024 Albuterol Sulfate (Ventolin Hfa) 90 mcg/actuation HFA aerosol inhaler Active 1 INH INHALATION EVERY 4-6 HOURS as needed for bronchospasm 6.7 January 14, 2024 11:00pm Start: 12-07-2023 End: 03-23-2024 take 1 puff(s) by inhalation four times daily as needed Albuterol Sulfate 90 mcg/actuation HFA aerosol inhaler Discontinued 2 PUFF INHALATION Four times daily as needed for bronchospasm December 07, 2023 12:00am March 23, 2024 10:31am Start: 11-21-2023 take 2 puff(s) by in [...] 4-6 hours for 30 days Aug, Not-Taking/PRN take 2 puff(s) by in halation every six hours albuterol HFA (Ventolin HFA) 90 mcg/act inhaler Inhale 2 puffs every 6 (six) hours Active benzonatate 200 mg oral capsule (3 sources) Non-narcotic Antitussive Start: 11-21-2023 take 1 capsule by mouth every eight hours Benzonatate 200 MG 1 capsule Orally Three times a day Oct, Active brompheniramine maleate 0.4 mg/ml / dextromethorphan hydrobromide 2 mg/ml / pseudoephedrine hydrochloride 6 mg/ml oral solution (2 sources) alpha-Adrenergic Agonist, Uncompetitive D-ikxesv-O-aspartat e Receptor Antagonist, Sigma-1 Agonist Start: 01-07-2025 take 10 mL by mouth four times daily as needed for cough brompheniramine- pseudoephedrine- DM 30-2-10 MG/5ML syrup Indications: Cough, unspecified type Take 10 mL by mouth 4 (four) times a day as needed for congestion or cough 120 mL 01/07/2025 Active dextromethorphan hydrobromide 3 mg/ml / promethazine hydrochloride 1.25 mg/ml oral solution (2 sources) Phenothiazine, Uncompetitive Q-urccxu-I-aspartat e Receptor Antagonist, Sigma-1 Agonist Start: 11-20-2024 take 1 mL by mouth every six hours as needed for cough Promethazine-Dm 6.25-15 mg/5 mL syrup Active 5 ML PO Every 6 hours as needed for cough 473 November 20, 2024 12:00am Start: 11-23-2023 Promethazine-D M 6.25-15 MG/5ML 5 mL as needed Orally every 6 hrs for 7 days Oct, Active doxycycline monohydrate 100 mg oral tablet (14 sources) Tetracycline-class Drug Start: 10-09-2024 take 1 tablet by mouth twice daily Doxycycline Monohydrate 100 mg tablet Active 100 MG PO Twice daily 14 October 09, 2024 12:00am Start: 07-02-2024 End: 09-17-2024 take 1 capsule by mouth twice daily Doxycycline Hyclate 100 mg capsule Discontinued 100 MG PO Twice daily 14 July 01, 2024 11:00pm September 17, 2024 2:43pm Start: 01-10-2024 End: 01-19-2024 take 1 tablet by mouth twice daily Doxycycline Monohydrate 100 mg tablet Discontinued 100 MG PO Twice daily 14 January 09, 2024 11:00pm January 19, 2024 12:02pm Start: 11-21-2023 take 1 tablet by ran th every twelve hours Doxycycline Hyclate 100 MG 1 tablet Orally Twice a day for 10 day(s) Oct, Active famotidine 20 mg oral tablet (8 sources) Histamine-2 Receptor Antagonist Start: 03-29-2024 End: 10-10-2024 take 1 tablet by mouth once daily at bedtime Famotidine 20 mg tablet Active 20 MG PO Daily at bedtime October 23, 2024 12:00am 60 actuat fluticasone propionate 0.25 mg/actuat / salmeterol 0.05 mg/actuat dry powder inhaler (8 sources) Corticosteroid, beta2-Adrenergic Agonist Start: 09-17-2024 Fluticasone Propion-Salmeterol (Advair Diskus) 250-50 mcg/dose blister with device Active 1 INH INHALATION Twice daily 60 September 17, 2024 12:00am Start: 01-16-2024 End: 09-17-2024 Fluticasone Propion-Salmeter ol (Advair Diskus) 100-50 mcg/dose blister with device Discontinued 1 INH INHALATION Twice daily 60 January 15, 2024 11:00pm September 17, 2024 2:57pm Start: 01-16-2024 Fluticasone Pr opion-Salmeterol (Advair Diskus) 100-50 mcg/dose blister with device Active 1 INH INHALATION Twice daily 60 January 16, 2024 12:00am ibuprofen 800 mg oral tablet (1 source) Nonsteroidal Anti-inflammatory Drug Start: 07-07-2023 take 1 tablet by mouth three times daily at mealtime as needed Ibuprofen 800 MG 1 tablet with food or milk as needed Orally Three times a day for 7 days Jun, Active methylPREDNISolone (15 sources) Corticosteroid Start: 01-07-2025 End: 01-14-2025 methylPREDNISolone (Medrol Dospak) 4 MG tablets Indications: Cough, unspecified type , Influenza A Follow schedule on package instructions 21 tablet 01/07/2025 01/14/2025 Active Start: 06-05-2024 End: 09-17-2024 take 1 tablet by mouth once Methylprednisolone (Medrol (Fabrice)) 4 mg tablets,dose pack Discontinued 0 PO per package directions 13 04June 04, 2024 11:00pm September 17, 2024 2:44pm PO PER PKG DIR Start: 03-11-2014 Depo-Medrol 80 mg February, 80 mg omeprazole 40 mg delayed release oral capsule (7 sources) Proton Pump Inhibitor Start: 04-11-2024 End: 09-19-2024 take 1 capsule by mouth before mealtime omeprazole (PriLOSEC) [address] capsule Indications: LPRD (laryngopharyngeal reflux disease) TAKE 1 CAPSULE (40 MG) BY MOUTH IN THE MORNING. TAKE BEFORE MEALS. DO NOT CRUSH OR CHEW.. 90 capsule 05/29/2024 Active oseltamivir 75 mg oral capsule (2 sources) Neuraminidase Inhibitor Start: 01-07-2025 End: 01-12-2025 take 1 capsule by mouth in the morning oseltamivir (Tamiflu) 75 MG capsule Indications: Influenza A Take 1 capsule (75 mg) by mouth in the morning and 1 capsule (75 mg) before bedtime. Do all this for 5 days. 10 capsule 01/07/2025 01/12/2025 Active oxybutynin chloride 5 mg oral tablet (14 sources) Cholinergic Muscarinic Antagonist Start: 08-09-2023 take 1 tablet by mouth three times daily as needed oxybutynin 5 mg Tab 5 mg = 1 tab(s), Oral, TID, PRN for urinary discomfort, # 60 tab(s), Refills(s) 0, Pharmacy: [facility]/pharmacy #[id number], 175, cm, 07/25/23 9:08:00 EDT, Height/Length Dosing, 89.5, kg, 07/25/23 9:08:00 EDT, Weight Dosing Start Date: 08/09/23 Status: Ordered Start: 07-25-2023 End: 08-08-2023 take 1 tablet by mouth twice daily as needed for muscle spasms Oxybutynin Chloride 5 mg tablet Discontinued 5 MG PO Twice daily as needed for bladder spasms 60 July 24, 2023 11:00pm August 08, 2023 1:01pm predniSONE 20 mg oral tablet (20 sources) Start: 11-20-2024 take 2 tablets by mouth once daily Prednisone 20 mg tablet Active 40 MG PO Daily 10 November 20, 2024 12:00am Start: 10-09-2024 End: 10-14-2024 take 2 tablets by mouth once daily predniSONE (DELTASONE) 20 MG tablet Take 2 tablets by mouth daily for 5 days 10 tablet 10/09/2024 10/14/2024 Active Start: 01-15-2024 End: 03-23-2024 take 1 tablet by mouth once daily Prednisone 50 mg tablet Discontinued 50 MG PO Daily 02 25January 14, 2024 11:00pm March 23, 2024 10:28am Start: 01-13-2024 End: 01-19-2024 take 1 tablet by mouth twice daily Prednisone 20 mg tablet Discontinued 20 MG PO Twice daily 10 January 12, 2024 11:00pm January 19, 2024 12:02pm Start: 09-10-2023 take 1 tablet by ran th every twelve hours predniSONE 20 MG 1 tablet Orally bid for 5 day(s) Oct, Active Start: 07-07-2023 take 1 tablet by ran th every twelve hours prednisone 20 MG 1 tablet Orally BID for 5 14 Sep, 2023 Active Promethazine-Codeine (1 source) Start: 01-16-2024 take 1 mL by mouth at bedtime Promethazine-Codeine Active 5 ML PO Bedtime 15 3 January 16, 2024 12:00am traZODone hydrochloride 100 mg oral tablet (20 sources) Serotonin Reuptake Inhibitor Start: 12-07-2023 take 1 tablet by mouth at bedtime traZODone (Desyrel) 100 MG tablet Take 100 mg by mouth at bedtime 01/10/2024 Active take 1 tablet by ran th every twenty-four hours traZODone HCl 100 MG 1 tablet at bedtime Orally Once a day for 90 days Active Completed/Discontinued Medications Medication Drug Class(es) Dates Sig (Normalized) Sig (Original) acetaminophen 325 mg oral tablet (20 sources) Start: 08-08-2023 End: 12-07-2023 take 2 tablets by mouth every four hours as needed for pain Acetaminophen (Tylenol Extra Strength) 500 mg Tablet Discontinued 1000 MG PO Q4H as needed for Pain August 07, 2023 11:00pm December 07, 2023 3:56pm Start: 08-08-2023 End: 08-08-2023 Acetaminophen (Tylenol) 325 mg Tablet Discontinued 650 MG PO As Directed as needed for Pain August 07, 2023 11:00pm August 08, 2023 1:32pm acetaminophen 325 mg / HYDROcodone bitartrate 5 mg oral tablet (20 sources) Opioid Agonist Start: 07-25-2023 End: 12-07-2023 take 1 tablet by mouth every four to six hours as needed for pain Hydrocodone-Acetaminophen 5-325 mg tablet Discontinued 1 TAB PO EVERY 4-6 HOURS as needed for pain 7 3 August 08, 2023 December 07, 2023 3:56pm albuterol 0.833 mg/ml / ipratropium bromide 0.167 mg/ml inhalation solution (1 source) Anticholinergic, beta2-Adrenergic Agonist Start: 10-09-2024 End: 10-09-2024 take 1 dose by inhalation once 1 Dose, Inhalation, ONCE, 1 dose, On Tue10/09/24 at 2014, Initiate RT Bronchodilator Protocol: No ALPRAZolam 0.25 mg oral tablet (13 sources) Benzodiazepine Start: 06-05-2024 End: 10-10-2024 take 1 tablet by mouth twice daily Alprazolam (Xanax) 0.25 mg tablet Discontinued 0.25 MG PO Twice daily 10 September 17, 2024 3:04pm October 10, 2024 9:11am Start: 12-07-2023 End: 01-15-2024 take 1 tablet by mouth once daily at bedtime as needed for anxiety Alprazolam (Xanax) 0.25 mg tablet Discontinued 0.25 MG PO Daily at bedtime as needed for anxiety 14 December 07, 2023 12:00am January 15, 2024 9:18pm azithromycin 250 mg oral tablet (11 sources) Macrolide Antimicrobial Start: 06-05-2024 End: 09-17-2024 Azithromycin 250 mg tablet Discontinued 0 PO daily 6 June 04, 2024 11:00pm September 17, 2024 2:43pm Take 2 on day 1 and then take 1 for the next 4 days (days 2-5) Start: 06-05-2024 Azithromycin A ctive 0 PO daily 03 28June 05, 2024 12:00am Take 2 on day 1 and then take 1 for the next 4 days (days 2-5) Start: 01-15-2024 End: 03-23-2024 Azithromycin 250 mg tablet D iscontinued 0 PO .COMPLEX January 14, 2024 11:00pm March 23, 2024 10:28am For 250 mg dose pack: take 500 mg today (day 1), then 250 mg for 4 days (days 2-5) Start: 01-15-2024 End: [...] a day for 5 day(s) Oct, Active ciprofloxacin 500 mg oral tablet (20 sources) Quinolone Antimicrobial Start: 07-25-2023 End: 12-07-2023 take 1 tablet by mouth every two hours Ciprofloxacin Hcl (Cipro) 500 mg tablet Discontinued 500 MG PO Q12H August 07, 2023 11:00pm December 07, 2023 3:56pm administer dose at least 2 hrs before/6 hrs after dairy products, calcium, zinc, and/or iron-containing products codeine phosphate 2 mg/ml / promethazine hydrochloride 1.25 mg/ml oral solution (12 sources) Opioid Agonist, Phenothiazine Start: 01-16-2024 End: 01-19-2024 take 1 mL by mouth at bedtime as needed for cough Promethazine-Codein e 6.25-10 mg/5 mL syrup Discontinued 5 ML PO Bedtime as needed for cough 15 3 January 16, 2024 12:11pm January 19, 2024 12:07pm dextromethorphan hydrobromide 15 mg / guaiFENesin 400 mg / pseudoephedrine hydrochloride 60 mg oral tablet (10 sources) alpha-Adrenergic Agonist, Uncompetitive Z-tematk-E-asparta te Receptor Antagonist, Sigma-1 Agonist Start: 01-13-2024 End: 01-19-2024 take 4 tablets by mouth every twenty-four hours as needed Pseudoephedrine-Dm- Guaifenesin (Capmist Dm) 60-15-400 mg tablet Discontinued 1 TAB PO EVERY 4-6 HOURS as needed for cold symptoms January 12, 2024 11:00pm January 19, 2024 12:02pm do not exceed 4 doses per 24 hrs Start: 07-07-2023 take 4 tablets by mo ohh every twenty-four hours as needed Capmist DM 60-15-400 MG as needed Orally every 4-6 hours as needed, max 4 tablets in 24 hours for 5 days Jun, Active dextromethorphan hydrobromide 1.5 mg/ml / pyrilamine maleate 1.5 mg/ml oral solution (8 sources) Uncompetitive M-fhkbhq-F-aspartate Receptor Antagonist, Sigma-1 Agonist Start: 09-10-2023 take 10 mL by mouth every eight hours as needed Prichard DM 7.5-7.5 MG/5ML 10 mL Orally every 8 hours for 5 days Aug, Not-Taking/PRN fluticasone propionate 0.05 mg/actuat metered dose nasal spray (4 sources) Corticosteroid Start: 06-13-2024 End: 09-17-2024 take 1 spray(s) nasal route twice daily Fluticasone Propionate 50 mcg/actuation spray,suspension Discontinued 0 .ROUTE .COMPLEX June 13, 2024 7:43am September 17, 2024 2:44pm USE 1 SPRAY INTRANASALLY TWICE DAILY FOR 30 DAYS ADMINISTER INTO EACH NOSTRIL Start: 04-11-2024 End: 06-13-2024 take 1 spray(s) nasal route twice daily Fluticasone Propionate (Flonase Allergy Relief) 50 mcg/actuation spray,suspension Discontinued 1 SPRAY INTRANASAL Twice daily April 10, 2024 11:00pm June 13, 2024 7:43am administer into each nostril gabapentin 100 mg oral capsule (6 sources) Anti-epileptic Agent Start: 03-23-2024 End: 09-17-2024 take 1 capsule by mouth once daily at bedtime Gabapentin 100 mg capsule Discontinued 100 MG PO Daily at bedtime May 17, 2024 2:06pm September 17, 2024 2:44pm gadoterate meglumine (Dotarem) 0.5 mmol/mL contrast injection 40 mL (1 source) Start: 04-04-2024 End: 04-04-2024 inject 40 mL intravenously once 40 mL, intravenous, Once in imaging, Starting on Tue04/04/24 at 1451, For 1 dose, Administer undiluted as rapid I.V. bolus injection hydrOXYzine hydrochloride 25 mg oral tablet (7 sources) Antihistamine Start: 01-19-2024 End: 03-23-2024 take 1 tablet by mouth once daily at bedtime Hydroxyzine Hcl 25 mg tablet Discontinued 25 MG PO Daily at bedtime January 18, 2024 11:00pm March 23, 2024 10:40am Start: 08-02-2022 End: 08-12-2022 take 1 capsule by mouth three times daily hydrOXYzine pamoate (Vistaril) 25 mg capsule Indications: Anxiety about health Take 1 capsule (25 mg total) by mouth 3 (three) times a day if needed for itching for up to 10 days. 30 capsule 0 08/02/2022 08/12/2022 Active methylPREDNISolone sodium succ (SOLU-MEDROL) 125 mg in sterile water 2 mL injection (1 source) Start: 10-09-2024 End: 10-09-2024 125 mg, IntraVENous, ONCE, On Tue10/09/24 at 2014, For 1 dose, Reconstitute 125 mg vial with 2 mL diluent. ondansetron 4 mg disintegrating oral tablet (20 sources) Serotonin-3 Receptor Antagonist Start: 05-30-2024 End: 10-10-2024 take 1 tablet by mouth every eight hours as needed for nausea and vomiting Ondansetron 4 mg tablet,disintegra ting Discontinued 4 MG PO Q8H as needed for nausea and vomiting 30 May 29, 2024 11:00pm October 10, 2024 9:11am Start: 07-19-2023 End: 08-08-2023 take 1 tablet by mouth every eight hours as needed for nausea and vomiting Ondansetron 4 mg tablet,disintegrating Discontinued 4 MG PO Q8H as needed for nausea and vomiting 9 July 18, 2023 11:00pm August 08, 2023 1:01pm Start: 05-23-2023 take 1 tablet by ran th every eight hours as needed for nausea Ondansetron 4 MG 1 tablet on the tongue and allow to dissolve Orally every 8 hours prn nausea/vomiting for 5 days Apr, Not-Taking Start: 12-25-2020 End: 07-19-2023 Ondansetron Hcl (Zofran) 4 m g tablet Discontinued 4 MG PO every 6 to 8 hours as needed for nausea and vomiting December 25, 2020 12:00am July 19, 2023 5:37pm pantoprazole 40 mg delayed release oral tablet (14 sources) Proton Pump Inhibitor Start: 12-25-2020 End: 07-19-2023 take 1 tablet by mouth once daily Pantoprazole (Protonix) 40 mg tablet,delayed release (DR/EC) Discontinued 40 MG PO Daily December 25, 2020 12:00am July 19, 2023 5:37pm sucralfate 1000 mg oral tablet (14 sources) Aluminum Complex Start: 12-25-2020 End: 07-19-2023 take 1 tablet by mouth every six hours Sucralfate (Carafate) 1 gram tablet Discontinued 1 GM PO Q6H 56 December 25, 2020 12:00am July 19, 2023 5:37pm tamsulosin hydrochloride 0.4 mg oral capsule (15 sources) alpha-Adrenergic Feliberto Start: 07-19-2023 End: 08-08-2023 take 1 capsule by mouth once daily Tamsulosin (Flomax) 0.4 mg capsule Discontinued 0.4 MG PO Daily July 18, 2023 11:00pm August 08, 2023 1:01pm tiZANidine 2 mg oral tablet (14 sources) Central alpha-2 Adrenergic Agonist Start: 12-25-2020 End: 07-19-2023 take 1 tablet by mouth once daily at bedtime as needed Tizanidine 2 mg tablet Discontinued 2 MG PO Daily at bedtime as needed for Insomnia December 25, 2020 12:00am July 19, 2023 5:38pm triamcinolone acetonide 1 mg/ml topical cream (15 sources) Corticosteroid Start: 03-26-2024 End: 10-10-2024 Triamcinolone Acetonide 0.1 % cream Discontinued 1 APPLIC TOPICAL Twice daily 30 10 April 16, 2024 10:08am October 10, 2024 9:11am Start: 12-07-2023 End: 01-13-2024 Triamcinolone Acetonide 0.1 % cream Discontinued 1 APPLIC TOPICAL Twice daily 30 7 December 07, 2023 12:00am January 13, 2024 10:34am valACYclovir 500 mg oral tablet (20 sources) Herpesvirus Nucleoside Analog DNA Polymerase Inhibitor, Herpes Simplex Virus Nucleoside Analog DNA Polymerase Inhibitor, Herpes Zoster Virus Nucleoside Analog DNA Polymerase Inhibitor Start: 12-07-2023 End: 01-13-2024 take 1 tablet by mouth once daily Valacyclovir 500 mg tablet Discontinued 500 MG PO Daily December 07, 2023 12:00am January 13, 2024 10:34am Start: 11-26-2023 valACYclovir ( Valtrex) 1 g tablet Take 1,000 mg by mouth in the morning. 11/26/2023 Active Start: 07-25-2023 valacyclovir 1 g Tab Refills(s) 0 Start Date: 07/25/23 Status: Ordered Start: 07-19-2023 End: 12-07-2023 take 1 mg by mouth once daily Valacyclovir 1 gram tabl et Discontinued 1 MG PO Daily July 18, 2023 11:00pm December 07, 2023 3:56pm Start: 07-19-2023 End: 12-07-2023 take 1 mg by mouth once daily Valacyclovir Discontinue d 1 MG PO Daily July 19, 2023 12:00am December 07, 2023 4:56pm take 1 tablet by ran th every twenty-four hours valACYclovir HCl 500 MG 1 tablet Orally Once a day PRN Active Problems Active Problems Problem Classification Problem Date Documented Date Episodic/Chronic Abdominal pain (16 sources) Epigastric pain; Translations: [Epigastric pain] 12-25-2020 Episodic Acute and chronic tonsillitis (8 sources) Hypertrophy of tonsils; Translations: [Enlargement of left palatine tonsil] Onset: 05-05-2021 03-25-2024 Chronic Allergic reactions (16 sources) Atopic dermatitis; Translations: [Atopic dermatitis, unspecified] 12-07-2023 Chronic Anxiety disorders (20 sources) Anxiety about body function or health; Translations: [Other specified anxiety disorders] Onset: 03-24-2022 Chronic Asthma (20 sources) Asthma; Translations: [Mild intermittent asthma] Onset: 10-09-2024 07-25-2023 Chronic Calculus of urinary tract (20 sources) Ureteric stone; Translations: [Calculus of ureter] Onset: 07-25-2023 07-19-2023 Episodic Cardiac dysrhythmias (2 sources) Palpitations Episodic Disorders usually diagnosed in infancy, childhood, or adolescence (10 sources) Attention deficit hyperactivity disorder, predominantly inattentive type; Translations: [Other specified behavioral and emotional disorders with onset usually occurring in childhood and adolescence] 12-07-2023 Chronic Esophageal disorders (5 sources) Gastroesophageal reflux disease; Translations: [Gastro-esophageal reflux disease without esophagitis] Onset: 10-15-2024 05-30-2024 Chronic Immunizations and screening for infectious disease (11 sources) Patient encounter status; Translations: [Encounter for screening for infections with a predominantly sexual mode of transmission] Onset: 09-26-2024 Episodic Influenza (2 sources) Influenza due to Influenza A virus; Translations: [Influenza due to other identified influenza virus with other respiratory manifestations] 01-07-2025 Episodic Intestinal infection (1 source) Viral intestinal infection, unspecified Episodic Nausea and vomiting (2 sources) Nausea; Translations: [Nausea] 05-30-2024 Episodic Nonspecific chest pain (5 sources) Chest pain, unspecified; Translations: [Chest pain] Onset: 11-05-2022 4 Episodic Other and ill-defined heart disease (18 sources) Ventricular hypertrophy ; Translations: [Cardiomegaly] 12-07-2023 Chronic Other and ill-defined heart disease (1 source) Cardiomegaly Chronic Other diseases of kidney and ureters (13 sources) Hydronephrosis with renal and ureteral calculous obstruction; Translations: [Hydronephrosis with urinary obstruction due to ureteral calculus] 07-25-2023 Episodic Other liver diseases (1 source) High lipase level in serum; Translations: [Abnormal levels of other serum enzymes] 11-20-2024 Episodic Other lower respiratory disease (6 sources) Shortness of breath; Translations: [SHORTNESS OF BREATH] Onset: 11-04-2022 Episodic Other lower respiratory disease (1 source) Dyspnea; Translations: [Shortness of breath] 09-11-2024 Episodic Other lower respiratory disease (1 source) Wheezing; Translations: [Wheezing] 10-11-2024 Episodic Other lower respiratory disease (2 sources) Cough; Translations: [Cough, unspecified type] 01-07-2025 Episodic Other nervous system disorders (4 sources) Paresthesia of left lower limb; Translations: [Paresthesia of skin] 03-23-2024 Episodic Other nervous system disorders (3 sources) Paresthesia of skin; Translations: [Disturbance of skin sensation] 03-23-2024 Episodic Other non-traumatic joint disorders (4 sources) Hip pain; Translations: [Pain in left hip] 03-23-2024 Episodic Other non-traumatic joint disorders (3 sources) Pain in left hip; Translations: [Pain in joint, pelvic region and thigh] 03-23-2024 Episodic Other nutritional; endocrine; and metabolic disorders (1 source) Hypomagnesemia; Translations: [Hypomagnesemia] 10-18-2024 Chronic Other screening for suspected conditions (not mental disorders or infectious disease) (1 source) Other specified abnormal findings of blood chemistry Episodic Other skin disorders (2 sources) Eruption; Translations: [Rash and other nonspecific skin eruption] 04-11-2024 Episodic Other skin disorders (1 source) Rash and other nonspecific skin eruption; Translations: [Rash and other nonspecific skin eruption] 04-11-2024 Episodic Other upper respiratory disease (3 sources) Hoarse; Translations: [Dysphonia] 03-25-2024 Episodic Other upper respiratory disease (3 sources) Dysphonia; Translations: [Dysphonia] 03-23-2024 Episodic Other upper respiratory infections (1 source) Sinusitis; Translations: [Chronic sinusitis, unspecified] 07-02-2024 Chronic Other upper respiratory infections (6 sources) Acute upper respiratory infection, unspecified; Translations: [Acute pharyngitis, unspecified] Onset: 03-24-2022 Episodic Otitis media and related conditions (4 sources) Dysfunction of eustachian tube; Translations: [Unspecified [...] APNEA] Onset: 12-01-2021 Chronic Residual codes; unclassified (20 sources) Obstructive sleep apnea syndrome; Translations: [Obstructive sleep apnea (adult) (pediatric)] Onset: 03-26-2024 12-07-2023 Chronic Residual codes; unclassified (3 sources) Parasomnia; Translations: [Parasomnia, unspecified] Onset: 03-26-2024 03-26-2024 Chronic Residual codes; unclassified (9 sources) Sleep disorder; Translations: [Sleep disorder, unspecified] Episodic Residual codes; unclassified (1 source) Sleep disorder, unspecified Episodic Residual codes; unclassified (2 sources) Family history of ischemic heart disease and other diseases of the circulatory system Episodic Spondylosis; intervertebral disc disorders; other back problems (10 sources) Chronic back pain ; Translations: [Dorsalgia, [...] (SUSP) EXPOS COVID-19] Onset: 12-21-2021 Viral infection (14 sources) Viral disease; Translations: [Viral infection, unspecified] Episodic Past or Other Problems Problem Classification Problem Date Documented Da te Episodic/Chronic Chronic obstructive pulmonary disease and bronchiectasis (13 sources) Bronchitis, not specified as acute or chronic; Translations: [Bronchitis] Onset: 01-15-2024 Episodic Other upper respiratory disease (3 sources) Deviated nasal septum; Translations: [Deviated nasal septum] Onset: 05-05-2021 03-26-2024 Episodic Unclassified (1 source) COUGH, UNSPECIFIED; Translations: [COUGH, UNSPECIFIED] Onset: 03-23-2022 Unclassified (1 source) CONTACT W/AND (SUSP) EXPOS COVID-19; Translations: [CONTACT W/AND (SUSP) EXPOS COVID-19] Onset: 12-17-2021 Unclassified (1 source) Suspected COVID-19 virus infection Z20.822 Results Test Name Value Interpretation Reference Range Facility Laboratory - Microbiology an d Antimicrobial susceptibilityon 01-07-2025 SARS-CoV-2 (COVID-19) RNA DANILO+probe Ql (Unsp spec) Negative [facility] No Panel Informationon 01-07 FLU A Positive [facility] FLU B Negative [facility] Interpretation and review of laboratory results Abnormal [facility] S. pyogenes DNA DANILO+probe No m (Unsp spec)on 01-07-2025 Interpretation and review of laboratory results Normal [facility] RESULT Negative Negative [facility] Alanine aminotransferase [En zymatic activity/volume] in Serum or PlasmaOrdered By: Kenroy Brandt on 11-20-2024 ALT [Catalytic activity/Vol] Alanine aminotransferase [Enzymatic activity/volume] in Serum or Plasma [address] Albumin [Mass/volume] in Ser um or Plasma by Bromocresol green (BCG) dye binding methoOrdered By: Kenroy Brandt on 11-20-2024 Albumin BCG dye [Mass/Vol] Albumin [Mass/volume] in Serum or Plasma by Bromocresol green (BCG) dye binding metho 3.5-5.7 [facility] Alkaline phosphatase [Enzyma tic activity/volume] in Serum or PlasmaOrdered By: Kenroy Brandt on 11-20-2024 ALP [Catalytic activity/Vol] Alkaline phosphatase [Enzymatic activity/volume] in Serum or Plasma 34-104 [facility] Aspartate aminotransferase [ Enzymatic activity/volume] in Serum or PlasmaOrdered By: Kenroy Brandt on 11-20-2024 AST [Catalytic activity/Vol] Aspartate aminotransferase [Enzymatic activity/volume] in Serum or Plasma 13-39 [facility] B-Type Natriuretic Peptideon 11-20-2024 Natriuretic peptide B (Bld) [Mass/Vol] 7.0 pg/mL Normal 5-100 [facility] Comment on above: Result Comment: PERF ORMED BY: [place] [address] PATHOLOGIST [employer] JOANNE ODEN M.D. Performed By: #### R FRED Cardoza #### [address] Basic Metabolic Panelon 10-25 Anion gap [Moles/Vol] 14.3 mmol/L Normal 6.0-15.0 [facility] Comment on above: Performed By: #### L IPASE, PT, PTT, CK, BMP, SCAN CBC, HS TROP, BNP, HEPATIC ####[place] [id number] [address] Calcium [Mass/Vol] 9.4 mg/dL Normal 8.6-10.3 [facility] Comment on above: Performed By: #### L IPASE, PT, PTT, CK, BMP, SCAN CBC, HS TROP, BNP, HEPATIC ####[place] [address] [address] Chloride [Moles/Vol] 103 mmol/L Normal 98-107 [facility] Comment on above: Performed By: #### L IPASE, PT, PTT, CK, BMP, SCAN CBC, HS TROP, BNP, HEPATIC ####[address] CO2 [Moles/Vol] 23.2 mmol/L Normal 21.0-31.0 [facility] Comment on above: Performed By: #### L IPASE, PT, PTT, CK, BMP, SCAN CBC, HS TROP, BNP, HEPATIC ####[address] Creatinine [Mass/Vol] 1.00 mg/dL Normal 0.70-1.30 [facility] Comment on above: Performed By: #### L IPASE, PT, PTT, CK, BMP, SCAN CBC, HS TROP, BNP, HEPATIC ####[place] [address] [address] Creatinine Clr Calc Pharmacy 114.89 Normal [facility] Comment on above: Performed By: #### L IPASE, PT, PTT, CK, BMP, SCAN CBC, HS TROP, BNP, HEPATIC ####[address] GFR/1.73 sq M.predicted MDRD (S/P/Bld) [Vol rate/Area] mL/min/{1.73_m2} Normal [facility] Comment on above: Performed By: #### L IPASE, PT, PTT, CK, BMP, SCAN CBC, HS TROP, BNP, HEPATIC ####[address] Glucose [Mass/Vol] 81 mg/dL Normal 70-100 [facility] Comment on above: Result Comment: [place] Glucose Reference Range is dependent on time and content of last meal. Glucose of more than 200 mg/dL in a nonstressed, ambulatory subject supports the diagnosis of Diabetes Mellitus. ADA recommended reference range Performed By: #### L IPASE, PT, PTT, CK, BMP, SCAN CBC, HS TROP, BNP, HEPATIC ####[address] Potassium [Moles/Vol] 3.5 mmol/L Normal 3.5-5.1 [facility] Comment on above: Performed By: #### L IPASE, PT, PTT, CK, BMP, SCAN CBC, HS TROP, BNP, HEPATIC ####[facility] Sodium [Moles/Vol] 137 mmol/L Normal 136-145 [facility] Comment on above: Performed By: #### L IPASE, PT, PTT, CK, BMP, SCAN CBC, HS TROP, BNP, HEPATIC ####[facility] Urea nitrogen [Mass/Vol] 15 mg/dL Normal 7-25 [facility] Comment on above: Performed By: #### L IPASE, PT, PTT, CK, BMP, SCAN CBC, HS TROP, BNP, HEPATIC ####[place] [address] [address] Basophils Auto (Bld) [#/Vol] Ordered By: Kenroy Brandt on 11-20-2024 Basophils (Bld) [#/Vol] Automated basophil count 0.0-0.2 [facility] Basophils/100 WBC Auto (Bld) Ordered By: Kenroy Brandt on 11-20-2024 Basophils/100 WBC (Bld) Automated basophil % . [facility] Bilirubin.direct [Mass/volum e] in Serum or PlasmaOrdered By: Kenroy Brandt on 11-20-2024 Bilirubin.direct [Mass/Vol] Bilirubin.direct [Mass/volume] in Serum or Plasma 0.03-0.18 [facility] Bilirubin.total [Mass/volume ] in Serum or PlasmaOrdered By: Kenroy Brandt on 11-20-2024 Bilirubin [Mass/Vol] Bilirubin.total [Mass/volume] in Serum or Plasma 0.3-1.0 [facility] CT abdomen pelvis w conon CT abdomen pelvis w [facility] [place] [address] CT Scan Report Signed Patient: Manuela Davila MR#: [id number] : 1990 Acct:[id number] Age/Sex: 34 / M ADM Date: 11/20/24 Loc: ER Room: Type: [facility] ER Attending Dr: Copies to: Kenroy Brandt DO Ordering Provider: Kenroy Brandt DO Date of Service: 11/20/24 CT/CT angio chest PE protocol: cp, sob ([id number]) CT/CT abdomen pelvis w con: elevated lipase, [...] Dutch Nuñez M.D.11/20/2024 3:53 PM Dictation Location: [place] [address] Transcribed By: [facility] 11/20/24 1553 Dictated By: Dutch Nuñez DO 11/20/24 1545 Signed By: 11/20/24 1553 Normal [facility] Calcium [Mass/volume] in Ser um or PlasmaOrdered By: Kenroy Brandt on 11-20-2024 Calcium [Mass/Vol] Calcium [Mass/volume ] in Serum or Plasma 8.6-10.3 [facility] Carbon dioxide, total [Moles /volume] in Serum or PlasmaOrdered By: Kenroy Brandt on 11-20-2024 CO2 [Moles/Vol] Carbon dioxide, tota l [Moles/volume] in Serum or Plasma 21.0-31.0 [facility] Chloride [Moles/volume] in S jasvir or PlasmaOrdered By: Kenroy Brandt on 11-20-2024 Chloride [Moles/Vol] Chloride [Moles/vol ume] in Serum or Plasma 98-107 [facility] Creatine Kinaseon 11-20-2024 CK [Catalytic activity/Vol] 409 U/L High 30-223 [facility] Comment on above: Performed By: #### L IPASE, PT, PTT, CK, BMP, SCAN CBC, HS TROP, BNP, HEPATIC ####[facility] [address] [place] [id number] [facility] Creatine kinase [Enzymatic a ctivity/volume] in Serum or PlasmaOrdered By: Kenroy Brandt on 11-20-2024 CK [Catalytic activity/Vol] Creatine kinase [Enzymatic activity/volume] in Serum or Plasma High 30-223 [facility] Creatinine [Mass/volume] in Serum or PlasmaOrdered By: Kenroy Brandt on 11-20-2024 Creatinine [Mass/Vol] Creatinine [Mass/volume] in Serum or Plasma 0.70-1.30 [facility] ECG 12 lead ECGon 11-20-2024 ECG 12 lead ECG [facility] Main [address] [address] Electrocardiograph Report Signed Patient: Manuela Davila MR#: [id number] : 1990 Acct:[id number] Age/Sex: 34 / M ADM Date: 11/20/24 Loc: ER Room: Type: [facility] ER Attending Dr: Ordering Provider: Kenroy Brandt DO Date of Service: 11/20/24 ECG/ECG 12 [...] sinus rhythm Rightward axis Confirmed by Kenroy BRNADT DO ([id number]) on 11/20/2024 7:26:41 PM Referred By: Electronically Signed By: Kenroy BRANDT DO Transcribed By: MUS Signed By Kenroy Brandt DO 0 11/20/241925 Normal [facility] ECG 12 lead ECG [facility] Main [address] [address] Electrocardiograph Report Signed Patient: Manuela Davila MR#: [id number] : 1990 Acct:[id number] Age/Sex: 34 / M ADM Date: 11/20/24 Loc: ER Room: Type: [facility] ER Attending Dr: Ordering Provider: Kenroy Brandt DO Date of Service: 11/20/24 ECG/ECG 12 [...] with marked sinus arrhythmia Confirmed by Kenroy BRANDT DO ([id number]) on 11/20/2024 5:32:11 PM Referred By: Electronically Signed By: Kenroy BRANDT DO Transcribed By: MUS Signed By Kenroy Brandt DO 0 1/281731 Normal [facility] Eosinophils Auto (Bld) [#/Vo l]Ordered By: Kenroy Brandt on 11-20-2024 Eosinophils (Bld) [#/Vol] Automated eosinophil count 0.0-0.45 [facility] Eosinophils/100 WBC Auto (Bl d)Ordered By: Kenroy Brandt on 11-20-2024 Eosinophils/100 WBC (Bld) Automated eosinophil % . [facility] Erythrocyte distribution wid th Auto (RBC) [Ratio]Ordered By: Kenroy Brandt on 11-20-2024 Erythrocyte distribution width (RBC) [Ratio] Erythrocyte distribution width [Ratio] by Automated count 12.0-14.8 [facility] Erythrocyte morphology findi ng [Identifier] in BloodOrdered By: Kenroy Brandt on 11-20-2024 RBC morphology finding Nom (Bld) RBC morphology Normal [facility] Globulin Calc (S) [Mass/Vol] Ordered By: Kenroy Brandt on 11-20-2024 Globulin (S) [Mass/Vol] Serum globulin measurement by calculation (mass/volume) [facility] Glucose [Mass/volume] in Ser um or PlasmaOrdered By: Kenroy Brandt on 11-20-2024 Glucose [Mass/Vol] Glucose [Mass/volume ] in Serum or Plasma 70-100 [facility] Comment on above: ADA recommended refe rence rangeRandom Glucose Reference Range is dependent on time and content of last meal. Glucose of more than 200 mg/dL in a nonstressed, ambulatory subject supports the diagnosis of Diabetes Mellitus. Hematocrit Auto (Bld) [Volum e fraction]Ordered By: Kenroy Brandt on 11-20-2024 Hematocrit (Bld) [Volume fraction] Hematocrit [Volume Fraction] of Blood by Automated count 38.8-50.0 [facility] Hemoglobin [Mass/volume] in BloodOrdered By: Kenroy Brandt on 11-20-2024 Hemoglobin (Bld) [Mass/Vol] Hemoglobin [Mass/volume] in Blood 13.0-17.0 [facility] Hepatic Panelon 11-20-2024 Albumin [Mass/Vol] 4.9 g/dL Normal 3.5-5.7 [facility] Comment on above: Performed By: #### L IPASE, PT, PTT, CK, BMP, SCAN CBC, HS TROP, BNP, HEPATIC ####[address] Albumin/Globulin [Mass ratio] 2.0 {ratio} Normal [facility] Comment on above: Performed By: #### L IPASE, PT, PTT, CK, BMP, SCAN CBC, HS TROP, BNP, HEPATIC ####[address] ALP [Catalytic activity/Vol] 57 U/L Normal 34-104 [facility] Comment on above: Performed By: #### L IPASE, PT, PTT, CK, BMP, SCAN CBC, HS TROP, BNP, HEPATIC ####[address] ALT [Catalytic activity/Vol] 75 U/L High 7-52 [facility] Comment on above: Performed By: #### L IPASE, PT, PTT, CK, BMP, SCAN CBC, HS TROP, BNP, HEPATIC ####[address] AST [Catalytic activity/Vol] 34 U/L Normal 13-39 [facility] Comment on above: Performed By: #### L IPASE, PT, PTT, CK, BMP, SCAN CBC, HS TROP, BNP, HEPATIC ####[address] Bilirubin [Mass/Vol] 0.7 mg/dL Normal 0.3-1.0 [facility] Comment on above: Performed By: #### L IPASE, PT, PTT, CK, BMP, SCAN CBC, HS TROP, BNP, HEPATIC ####[address] Bilirubin,Indirect 0.6 mg/dL Normal [facility] Comment on above: Performed By: #### L IPASE, PT, PTT, CK, BMP, SCAN CBC, HS TROP, BNP, HEPATIC ####[address] Bilirubin.indirect [Mass/Vol] 0.10 mg/dL Normal 0.03-0.18 [facility] Comment on above: Performed By: #### L IPASE, PT, PTT, CK, BMP, SCAN CBC, HS TROP, BNP, HEPATIC ####[place] [address] [address] Globulin (S) [Mass/Vol] 2.4 g/dL Normal [facility] Comment on above: Performed By: #### L IPASE, PT, PTT, CK, BMP, SCAN CBC, HS TROP, BNP, HEPATIC ####[place] [address] [place] [id number] [facility] Protein [Mass/Vol] 7.3 g/dL Normal 6.4-8.9 [facility] Comment on above: Performed By: #### L IPASE, PT, PTT, CK, BMP, SCAN CBC, HS TROP, BNP, HEPATIC ####[place] [address] [address] INR in Platelet poor plasma by Coagulation assayOrdered By: Kenroy Brandt on 11-20-2024 INR Coag (PPP) [Relative time] INR in Platelet poor plasma by Coagulation assay [facility] Comment on above: INR Therapeutic Rang e A) Pre- and Peroperative OAT started two weeks before surgery. NOT HIP SURGERY: 1.5 - 2.5 HIP SURGERY: 2 - 3B) Primary and secondary prevention of venous THROMBOSIS: 2 - 3C) Active venous thrombosis, pulmonary embolismand prevention of recurrent venous thrombosis: 2 - 3D) Prevention of arterial thromboembolismincluding patients with mechanical heart valves: 3 - 4.5 Leukocytes [#/volume] correc michael for nucleated erythrocytes in Blood by Automated counOrdered By: Kenroy Brandt on 11-20-2024 WBC corrected for nucl RBC Auto (Bld) [#/Vol] Leukocytes [#/volume] corrected for nucleated erythrocytes in Blood by Automated coun 4.1-10.5 [facility] Lipaseon 11-20-2024 Lipase [Catalytic activity/Vol] 112.0 U/L High 11.0-82.0 [facility] Comment on above: Result Comment: PERF ORMED BY: [facility] [address] [facility] [address] [place] [id number] PATHOLOGIST [employer] JOANNE ODEN M.D. Performed By: #### L IPASE, PT, PTT, CK, BMP, SCAN CBC, HS TROP, BNP, HEPATIC ####[facility] [address] [place] [id number] [facility] Lipase [Enzymatic activity/v olume] in Serum or PlasmaOrdered By: Kenroy Brandt on 11-20-2024 Lipase [Catalytic activity/Vol] Lipase [Enzymatic activity/volume] in Serum or Plasma High 11.0-82.0 [facility] Lymphocytes Auto (Bld) [#/Vo l]Ordered By: Kenroy Brandt on 11-20-2024 Lymphocytes (Bld) [#/Vol] Lymphocytes [#/volume] in Blood by Automated count 1.00-4.8 [facility] Lymphocytes/100 WBC Auto (Bl d)Ordered By: Kenroy Brandt on 11-20-2024 Lymphocytes/100 WBC (Bld) Lymphocytes/100 leukocytes in Blood by Automated count . [facility] MCH Auto (RBC) [Entitic mass ]Ordered By: Kenroy Brandt on 11-20-2024 MCH (RBC) [Entitic mass] MCH [Entitic mass] by Automated count 27.5-35.2 [facility] MCHC Auto (RBC) [Mass/Vol]Or dered By: Kenroy Brandt on 11-20-2024 MCHC (RBC) [Mass/Vol] MCHC [Mass/volume] by Automated count 32.5-35.6 [facility] MCV Auto (RBC) [Entitic vol] Ordered By: Kenroy Brandt on 11-20-2024 MCV (RBC) [Entitic vol] MCV [Entitic volume] by Automated count 83.5-101 [facility] Monocyte distribution width [Entitic volume] in Blood by AutomatedOrdered By: Kenroy Brandt on 11-20-2024 Monocyte distribution width Auto (Bld) [Entitic vol] Monocyte distribution width [Entitic volume] in Blood by Automated 0.00-20.00 [facility] Monocytes Auto (Bld) [#/Vol] Ordered By: Kenroy Brandt on 11-20-2024 Monocytes (Bld) [#/Vol] Automated blood monocyte count 0.0-0.8 [facility] Monocytes/100 WBC Auto (Bld) Ordered By: Kenroy Brandt on 11-20-2024 Monocytes/100 WBC (Bld) Automated monocyte % . [facility] Natriuretic peptide B [Mass/ Vol]Ordered By: Kenroy Brandt on 11-20-2024 Natriuretic peptide B (Bld) [Mass/Vol] BNP ser/plas 5-100 [facility] Neutrophils Auto (Bld) [#/Vo l]Ordered By: Kenroy Brandt on 11-20-2024 Neutrophils (Bld) [#/Vol] Neutrophils [#/volume] in Blood by Automated count 1.8-7.7 [facility] Neutrophils/100 WBC Auto (Bl d)Ordered By: Kenroy Brandt on 11-20-2024 Neutrophils/100 WBC (Bld) Automated neutrophil % . [facility] No Panel InformationOrdered By: Kenroy Brandt on 11-20-2024 Estimated GFR (CKD-EPI) > 60.0 mL/Min [facility] Creatinine Clearance (Chem 114.89 [facility] Nucleated erythrocytes [Pres ence] in Blood by Automated countOrdered By: Kenroy Brandt on 11-20-2024 Nucleated RBC Auto Ql (Bld) Nucleated erythrocytes [Presence] in Blood by Automated count 0-0.5 [facility] Partial Thromboplastin Timeo n 11-20-2024 aPTT Coag (Bld) [Time] 29.6 s Normal 25.1-36.5 [facility] Comment on above: Result Comment: A he matocrit value greater than 55% may lead to inaccurate results in coagulation testing. Patients having hematocrit values >55% require a special collection tube for coagulation studies. Please contact the laboratory at [phone] for redraw instructions. PERFORMED BY: [place] [address] PATHOLOGIST [employer] JOANNE ODEN M.D. Performed By: #### R FRED Cardoza #### [address] Platelet adequacy [Presence] in Blood by Light microscopyOrdered By: Kenroy Brandt on 11-20-2024 Platelets LM Ql (Bld) Platelet adequacy [Presence] in Blood by Light microscopy Normal [facility] Platelet mean volume Auto (B ld) [Entitic vol]Ordered By: Kenroy Brandt on 11-20-2024 Platelet mean volume (Bld) [Entitic vol] Platelet mean volume [Entitic volume] in Blood by Automated count 6.6-10.1 [facility] Platelet morphology finding [Identifier] in BloodOrdered By: Kenroy Brandt on 11-20-2024 Platelet morphology finding Nom (Bld) Platelet morphology finding [Identifier] in Blood Normal [facility] Platelets Auto (Bld) [#/Vol] Ordered By: Kenroy Brandt on 11-20-2024 Platelets (Bld) [#/Vol] Platelets [#/volume] in Blood by Automated count 150-450 [facility] Potassium [Moles/volume] in Serum or PlasmaOrdered By: Kenroy Brandt on 11-20-2024 Potassium [Moles/Vol] Potassium [Moles/volume] in Serum or Plasma 3.5-5.1 [facility] Protein [Mass/volume] in Ser um or PlasmaOrdered By: Kenroy Brandt on 11-20-2024 Protein [Mass/Vol] Protein [Mass/volume ] in Serum or Plasma 6.4-8.9 [facility] Prothrombin Time INRon 11-20 INR Coag (PPP) [Relative time] 1.1 {INR} Normal [facility] Comment on above: Result Comment: INR Therapeutic Range A) Pre- and Peroperative OAT started [...] valves: 3 - 4.5 Performed By: #### R EDBETZY K #### [address] PT Coag (PPP) [Time] 12.3 s Normal 9.0-12.9 [facility] Comment on above: Result Comment: A he matocrit value greater than 55% may lead to inaccurate results in coagulation testing. Patients having hematocrit values >55% require a special collection tube for coagulation studies. Please contact the laboratory at [phone] for redraw instructions. Performed By: #### R EDRAW K #### [facility] [address] Prothrombin time (PT)Ordered By: Kenroy Brandt on 11-20-2024 PT Coag (PPP) [Time] Prothrombin time (PT) 9.0- 12.9 [facility] Comment on above: A hematocrit value g reater than 55% may lead to inaccurate results in coagulation testing. Patients having hematocrit values >55% require a special collection tube for coagulation studies. Please contact the laboratory at [phone] for redraw instructions. RBC Auto (Bld) [#/Vol]Ordere d By: Kenroy Brandt on 11-20-2024 RBC (Bld) [#/Vol] Erythrocytes [#/volu me] in Blood by Automated count 3.90-5.60 [facility] Scan and CBCon 11-20-2024 Basophils (Bld) [#/Vol] 0.1 10*3/uL Normal 0.0-0.2 [facility] Comment on above: Result Comment: PERF ORMED BY: [facility] [address] [facility] [place] [address] PATHOLOGIST [employer] JOANNE ODEN M.D. Performed By: #### L IPASE, PT, PTT, CK, BMP, SCAN CBC, HS TROP, BNP, HEPATIC ####[facility] Basophils/100 WBC (Bld) 1.0 % Normal . [facility] Comment on above: Performed By: #### L IPASE, PT, PTT, CK, BMP, SCAN CBC, HS TROP, BNP, HEPATIC ####[facility] [place] [address] [place] Eosinophils (Bld) [#/Vol] 0.1 10*3/uL Normal 0.0-0.45 [facility] Comment on above: Performed By: #### L IPASE, PT, PTT, CK, BMP, SCAN CBC, HS TROP, BNP, HEPATIC ####[facility] [place] [address] [place] Eosinophils/100 WBC (Bld) 1.2 % Normal . [facility] Comment on above: Performed By: #### L IPASE, PT, PTT, CK, BMP, SCAN CBC, HS TROP, BNP, HEPATIC ####[address] Erythrocyte distribution width (RBC) [Ratio] 12.5 % Normal 12.0-14.8 [facility] Comment on above: Performed By: #### L IPASE, PT, PTT, CK, BMP, SCAN CBC, HS TROP, BNP, HEPATIC ####[address] Hematocrit (Bld) [Volume fraction] 44.3 % Normal 38.8-50.0 [facility] Comment on above: Performed By: #### L IPASE, PT, PTT, CK, BMP, SCAN CBC, HS TROP, BNP, HEPATIC ####[address] Hemoglobin (Bld) [Mass/Vol] 15.4 g/dL Normal 13.0-17.0 [facility] Comment on above: Performed By: #### L IPASE, PT, PTT, CK, BMP, SCAN CBC, HS TROP, BNP, HEPATIC ####[address] Lymphocytes (Bld) [#/Vol] 2.1 10*3/uL Normal 1.00-4.8 [facility] Comment on above: Performed By: #### L IPASE, PT, PTT, CK, BMP, SCAN CBC, HS TROP, BNP, HEPATIC ####[address] Lymphocytes/100 WBC (Bld) 33.5 % Normal . [facility] Comment on above: Performed By: #### L IPASE, PT, PTT, CK, BMP, SCAN CBC, HS TROP, BNP, HEPATIC ####[address] MCH (RBC) [Entitic mass] 30.5 pg Normal 27.5-35.2 [facility] Comment on above: Performed By: #### L IPASE, PT, PTT, CK, BMP, SCAN CBC, HS TROP, BNP, HEPATIC ####[address] MCV (RBC) [Entitic vol] 87.9 fL Normal 83.5-101 [facility] Comment on above: Performed By: #### L IPASE, PT, PTT, CK, BMP, SCAN CBC, HS TROP, BNP, HEPATIC ####[address] Mean Corpuscular HGB Conc 34.7 g/dL Normal 32.5-35.6 [facility] Comment on above: Performed By: #### L IPASE, PT, PTT, CK, BMP, SCAN CBC, HS TROP, BNP, HEPATIC ####[address] Monocytes (Bld) [#/Vol] 0.6 10*3/uL Normal 0.0-0.8 [facility] Comment on above: Performed By: #### L IPASE, PT, PTT, CK, BMP, SCAN CBC, HS TROP, BNP, HEPATIC ####[address] Monocytes/100 WBC (Bld) 18.90 % Normal 0.00-20.00 [facility] Comment on above: Performed By: #### L IPASE, PT, PTT, CK, BMP, SCAN CBC, HS TROP, BNP, HEPATIC ####[address] Monocytes/100 WBC (Bld) 9.1 % Normal . [facility] Comment on above: Performed By: #### L IPASE, PT, PTT, CK, BMP, SCAN CBC, HS TROP, BNP, HEPATIC ####[address] Neutrophils (Bld) [#/Vol] 3.4 10*3/uL Normal 1.8-7.7 [facility] Comment on above: Performed By: #### L IPASE, PT, PTT, CK, BMP, SCAN CBC, HS TROP, BNP, HEPATIC ####[place] [address] [address] Neutrophils/100 WBC (Bld) 55.2 % Normal . [facility] Comment on above: Performed By: #### L IPASE, PT, PTT, CK, BMP, SCAN CBC, HS TROP, BNP, HEPATIC ####[address] NRBC% 0.1 /100{WBC} Normal 0-0.5 [facility] Comment on above: Performed By: #### L IPASE, PT, PTT, CK, BMP, SCAN CBC, HS TROP, BNP, HEPATIC ####[address] Platelet Estimate Normal Normal Normal [facility] Comment on above: Performed By: #### L IPASE, PT, PTT, CK, BMP, SCAN CBC, HS TROP, BNP, HEPATIC ####[address] Platelet mean volume (Bld) [Entitic vol] 8.6 fL Normal 6.6-10.1 [facility] Comment on above: Performed By: #### L IPASE, PT, PTT, CK, BMP, SCAN CBC, HS TROP, BNP, HEPATIC ####[address] Platelet Morphology Normal Normal Normal [facility] Comment on above: Result Comment: PERF ORMED BY: [facility] [address] [place] [address] PATHOLOGIST [employer] JOANNE ODEN M.D. Performed By: #### L IPASE, PT, PTT, CK, BMP, SCAN CBC, HS TROP, BNP, HEPATIC ####[address] Platelets (Bld) [#/Vol] 300 10*3/uL Normal 150-450 [facility] Comment on above: Performed By: #### L IPASE, PT, PTT, CK, BMP, SCAN CBC, HS TROP, BNP, HEPATIC ####[facility] RBC (Bld) [#/Vol] 5.04 10*6/uL Normal 3.90-5.60 [facility] Comment on above: Performed By: #### L IPASE, PT, PTT, CK, BMP, SCAN CBC, HS TROP, BNP, HEPATIC ####[place] [address] [address] RBC morphology finding Nom (Bld) Normal Normal Normal [facility] Comment on above: Performed By: #### L IPASE, PT, PTT, CK, BMP, SCAN CBC, HS TROP, BNP, HEPATIC ####[place] [address] WBC (Bld) [#/Vol] 6.1 10*3/uL Normal 4.1-10.5 [facility] Comment on above: Performed By: #### L IPASE, PT, PTT, CK, BMP, SCAN CBC, HS TROP, BNP, HEPATIC ####[place] [address] Serum or plasma albumin/glob ulin mass ratioOrdered By: Kenroy Brandt on 11-20-2024 Albumin/Globulin [Mass ratio] Serum or plasma albumin/globulin mass ratio [facility] Serum or plasma anion gap de terminationOrdered By: Kenroy Brandt on 11-20-2024 Anion gap [Moles/Vol] Serum or plasma an ion gap determination 6.0-15.0 [facility] Serum or plasma non-glucuron idated bilirubin measurement (mass/volume)Ordered By: Kenroy Brandt on 11-20-2024 Bilirubin.indirect [Mass/Vol] Serum or plasma non-glucuronidated bilirubin measurement (mass/volume) [facility] Sodium [Moles/volume] in Ser um or PlasmaOrdered By: Kenroy Brandt on 11-20-2024 Sodium [Moles/Vol] Sodium [Moles/volume ] in Serum or Plasma 136-145 [facility] Troponin I High Sensitivityo n 11-20-2024 Troponin I High Sensitivity 5 Normal 0-20 [facility] Comment on above: Result Comment: The Troponin units of report have been changed to meet the Chest Pain Accreditation requirement, element EC5.M1l2. Troponin units are changed from pg/ml to ng/L. Also, the decimal is removed and results are in whole numbers. PERFORMED BY: [place] [address] PATHOLOGIST [employer] JOANNE ODEN M.D. Performed By: #### L IPASE, PT, PTT, CK, BMP, SCAN CBC, HS TROP, BNP, HEPATIC ####[facility] [id number] Troponin I.cardiac [Mass/vol ume] in Serum or Plasma by Detection limit <= 0.01 ng/Ordered By: Kenroy Brandt on 11-20-2024 Troponin I.cardiac DL <= 0.01 ng/mL [Mass/Vol] Troponin I.cardiac [Mass/volume] in Serum or Plasma by Detection limit <= 0.01 ng/ 0-20 [facility] Comment on above: The Troponin units o f report have been changed to meet the Chest Pain Accreditation requirement, element EC5.M1l2. Troponin units are changed from pg/ml to ng/L. Also, the decimal is removed and results are in whole numbers. Urea nitrogen [Mass/volume] in Serum or PlasmaOrdered By: Kenroy Brandt on 11-20-2024 Urea nitrogen [Mass/Vol] Urea nitrogen [Mass/volume] in Serum or Plasma 7 [facility] WBC Auto (Bld) [#/Vol]Ordere d By: Kenroy Brandt on 11-20-2024 WBC (Bld) [#/Vol] Leukocytes [#/volume ] in Blood by Automated count 4.1-10.5 [facility] X-ray reportOrdered By: Hakan Blum on 11-20-2024 Study report [facility] [place] [address] XRay Report Signed Patient: Manuela Davila MR#: [id number] : 1990 Acct:[id number] Age/Sex: 34 / M ADM Date: 5 Loc: ER Room: Type: PRE ER Attending Dr: Copies to: Kenroy Brandt DO~ Ordering Provider: Kenroy Brandt DO Date of Service: 11/20/24 XR/XR chest 2V*: Chest Pain Chest 2 views CLINICAL HISTORY: Shortness of breath. Midsternal chest pain cough. COMPARISON: Chest 10/03/2024 FINDINGS: Heart normal in size. Lungs are clear. No free air. XR/XR chest 2V* IMPRESSION: NO ACUTE CARDIOPULMONARY ABNORMALITY. Impression dictated by: Finn Blum Jr., D.O.11/20/2024 3:16 PM Dictation Location: RADIO-PC-22 Transcribed By: MONIKA 11/20/241515 Dictated By: Finn Blum Jr, DO 11/20/241515 Signed By: 11/20/24 151 [facility] XR chest 2V*on 11-20-2024 XR chest 2V* [facility] [place] [address] [place] [address] XRay Report Signed Patient: Manuela Davila MR#: [id number] : 1990 Acct:[id number] Age/Sex: 34 / M ADM Date: 11/20/24 Loc: ER Room: Type: PRE ER Attending Dr: Copies to: Kenroy Brandt DO Ordering Provider: Kenroy Brandt DO Date of Service: 11/20/24 XR/XR chest 2V*: Chest Pain Chest 2 views CLINICAL HISTORY: Shortness of breath. Midsternal chest pain cough. COMPARISON: Chest 10/03/2024 FINDINGS: Heart normal in size. Lungs are clear. No free air. XR/XR chest 2V* IMPRESSION: NO ACUTE CARDIOPULMONARY ABNORMALITY. Impression dictated by: Finn Blum Jr., D.O.11/20/2024 3:16 PM Dictation Location: RADIO-PC-22 Transcribed By: MONIKA 11/20/241515 Dictated By: Finn Blum Jr, DO 11/20/241515 Signed By: 11/20/24 151 Normal [facility] aPTT in Platelet poor plasma by Coagulation assayOrdered By: Kenroy Brandt on 11-20-2024 aPTT Coag (PPP) [Time] Activated partial thromboplastin time (aPTT) in platelet poor plasma by coagulation a 25.1-36.5 [facility] Comment on above: A hematocrit value g reater than 55% may lead to inaccurate results in coagulation testing. Patients having hematocrit values >55% require a special collection tube for coagulation studies. Please contact the laboratory at [phone] for redraw instructions. Alanine aminotransferase [En zymatic activity/volume] in Serum or PlasmaOrdered By: Yessenia Mosher on 10-09-2024 ALT [Catalytic activity/Vol] Alanine aminotransferase [Enzymatic activity/volume] in Serum or Plasma 752 [facility] Albumin [Mass/volume] in Ser um or Plasma by Bromocresol green (BCG) dye binding methoOrdered By: Yessenia Mosher on 10-09-2024 Albumin BCG dye [Mass/Vol] Albumin [Mass/volume] in Serum or Plasma by Bromocresol green (BCG) dye binding metho 3.5-5.7 [facility] Alkaline phosphatase [Enzyma tic activity/volume] in Serum or PlasmaOrdered By: Yessenia Mosher on 10-09-2024 ALP [Catalytic activity/Vol] Alkaline phosphatase [Enzymatic activity/volume] in Serum or Plasma 34-104 [facility] Aspartate aminotransferase [ Enzymatic activity/volume] in Serum or PlasmaOrdered By: Yessenia Mosher on 10-09-2024 AST [Catalytic activity/Vol] Aspartate aminotransferase [Enzymatic activity/volume] in Serum or Plasma 13-39 [facility] B-Type Natriuretic Peptideon 10-09-2024 Natriuretic peptide B (Bld) [Mass/Vol] 11.0 pg/mL Normal 5-100 [facility] Comment on above: Result Comment: PERF ORMED BY: [place] [address] PATHOLOGIST [employer] JOANNE ODEN M.D. Performed By: #### A SPERGDID, ANCA, IGE #### [facility] , #### CBC #### [place] [address] [place] Basophils Auto (Bld) [#/Vol] Ordered By: Yessenia Mosher on 10-09-2024 Basophils (Bld) [#/Vol] Automated basophil count 0.0-0.2 [facility] Basophils/100 WBC Auto (Bld) Ordered By: Yessenia Mosher on 10-09-2024 Basophils/100 WBC (Bld) Automated basophil % . [facility] Bilirubin.total [Mass/volume ] in Serum or PlasmaOrdered By: Yessenia Mosher on 10-09-2024 Bilirubin [Mass/Vol] Bilirubin.total [Mass/volume] in Serum or Plasma 0.3-1.0 [facility] CBC with Auto Differentialon 10-09-2024 Basophils (Bld) [#/Vol] 0.04 10*3/uL [facility] Basophils/100 WBC (Bld) 1 % 0 - 2 % [facility] Eosinophils (Bld) [#/Vol] 0.15 10*3/uL [facility] Eosinophils/100 WBC (Bld) 3 % 0 - 5 % [facility] Erythrocyte distribution width (RBC) [Ratio] 10.9 % Low 12.1 - 15.2 % [facility] Hematocrit (Bld) [Volume fraction] 39.8 % Low 41.0 - 53.0 % [facility] Hemoglobin (Bld) [Mass/Vol] 14.5 g/dL 13.5 - 17.5 g/dL [facility] Immature granulocytes (Bld) [#/Vol] 0.00 10*3/uL [facility] Immature granulocytes/100 WBC (Bld) 0 % 0 - 5 % [facility] Interpretation and review of laboratory results Abnormal [facility] Lymphocytes/100 WBC (Bld) 41 % 13 - 44 % [facility] Lymphocytes/100 WBC (Bld) 2.23 % [facility] MCH (RBC) [Entitic mass] 30.7 pg 26.0 - 34.0 pg [facility] MCHC (RBC) [Mass/Vol] 36.4 g/dL 31.0 - 37.0 g/dL [facility] MCV (RBC) [Entitic vol] 84.3 fL 80.0 - 100.0 fL [facility] Monocytes/100 WBC (Bld) 12 % High 5 - 9 % [facility] Monocytes/100 WBC (Bld) 0.65 % [facility] Neutrophils/100 WBC (Bld) 43 % 39 - 75 % [facility] Platelet mean volume (Bld) [Entitic vol] 10.2 fL 6.0 - 12.0 fL [facility] Platelets (Bld) [#/Vol] 249 10*3/uL [facility] RBC (Bld) [#/Vol] 4.72 10*6/uL 4.50 - 5.9 0 m/uL [facility] Segmented neutrophils/100 WBC (Bld) 2.36 % [facility] WBC other (Bld) [#/Vol] 5.4 [facility] CBC with Diffon 10-09-2024 Abs. Basophil 0.04 k/uL Normal 0.00-0.20 [facility] Comment on above: Performed By: #### T DANIEL CORONA CDP, CP #### [facility] [address] [place] [address] Explosives Operator: Toy Zelaya MD Abs.Imm.Granulocyte 0.00 k/uL Normal 0.00-0.30 [facility] Comment on above: Performed By: #### DANIEL TUCKER CDP, CP #### [facility] [address] [place] [phone] Explosives Operator: Toy Zelaya MD Abs.Neutrophil (Seg) 2.36 k/uL Normal 2.1-6.5 [facility] Comment on above: Performed By: #### DANIEL TUCKER CDP, CP #### [facility] [address] [place] [phone] Explosives Operator: Toy Zelaya MD Basophils/100 WBC (Bld) 1 % Normal 0-2 [facility] Comment on above: Performed By: #### T DANIEL CORONA CDP, CP #### [facility] [address] [place] [phone] Explosives Operator: Toy Zelaya MD Eosinophils (Bld) [#/Vol] 0.15 10*3/uL Normal 0.00-0.40 [facility] Comment on above: Performed By: #### DANIEL TUCKER CDP, CP #### [facility] [address] [place] [address] Explosives Operator: Toy Zelaya MD Eosinophils/100 WBC (Bld) 3 % Normal [address] Comment on above: Performed By: #### DANIEL TUKCER CDP, CP #### [facility] [address] [place] [address] Explosives Operator: Toy Zelaya MD Erythrocyte distribution width (RBC) [Ratio] 10.9 % Low 12.1-15.2 [facility] Comment on above: Performed By: #### DANIEL TUCKER CDP, CP #### [facility] [address] [place] [address] Explosives Operator: Toy Zelaya MD Hematocrit (Bld) [Volume fraction] 39.8 % Low 41.0-53.0 [facility] Comment on above: Performed By: #### DANIEL TUCKER CDP, CP #### [facility] [address] [place] [address] Explosives Operator: Toy Zelaya MD Hemoglobin (Bld) [Mass/Vol] 14.5 g/dL Normal 13.5-17.5 [facility] Comment on above: Performed By: #### DANIEL TUCKER CDP, CP #### [facility] [address] [place] [phone] Explosives Operator: Toy Zelaya MD Immature granulocytes/100 WBC (Bld) 0 % Normal 0-5 [facility] Comment on above: Performed By: #### DANIEL TUCKER CDP, CP #### [facility] [address] [place] [address] Explosives Operator: Toy Zelaya MD Lymphocytes (Bld) [#/Vol] 2.23 10*3/uL Normal 1.00-4.80 [facility] Comment on above: Performed By: #### DANIEL TUCKER CDP, CP #### [facility] [address] [place] [address] Explosives Operator: Toy Zelaya MD Lymphocytes/100 WBC (Bld) 41 % Normal 13-44 [facility] Comment on above: Performed By: #### DANIEL TUCKER CDP, CP #### [facility] [address] [place] [phone] Explosives Operator: Toy Zelaya MD MCH (RBC) [Entitic mass] 30.7 pg Normal 26.0-34.0 [facility] Comment on above: Performed By: #### DANIEL TUCKER CDP, CP #### [facility] [address] [place] [address] Explosives Operator: Toy Zelaya MD MCHC (RBC) [Mass/Vol] 36.4 g/dL Normal 31.0-37.0 [facility] Comment on above: Performed By: #### DANIEL TUCKER CDP, CP #### [facility] [address] [place] [address] Explosives Operator: Toy Zelaya MD MCV (RBC) [Entitic vol] 84.3 fL Normal 80.0-100.0 [facility] Comment on above: Performed By: #### DANIEL TUCKER CDP, CP #### [facility] [address] [place] [address] Explosives Operator: Toy Zelaya MD Monocytes (Bld) [#/Vol] 0.65 10*3/uL Normal 0.00-1.00 [facility] Comment on above: Performed By: #### DANIEL TUCKER CDP, CP #### [facility] [address] [place] [address] Explosives Operator: Toy Zelaya MD Monocytes/100 WBC (Bld) 12 % High 5-9 [facility] Comment on above: Performed By: #### DANIEL TUCKER CDP, CP #### [facility] [address] [place], [place] [phone] Explosives Operator: Toy Zelaya MD Neutrophil (Seg) 43 % Normal 39-75 [facility] Comment on above: Performed By: #### DANIEL TUCKER CDP, CP #### [facility] [address] [place] [address] Explosives Operator: Toy Zelaya MD Platelet mean volume (Bld) [Entitic vol] 10.2 fL Normal 6.0-12.0 [facility] Comment on above: Performed By: #### DANIEL TUCKER CDP, CP #### [facility] [address] [place] [address] Explosives Operator: Toy Zelaya MD Platelets (Bld) [#/Vol] 249 10*3/uL Normal 140-450 [facility] Comment on above: Performed By: #### DANIEL TUCKER CDP, CP #### [facility] [address] [place], [place] [phone] Explosives Operator: Toy Zelaya MD RBC (Bld) [#/Vol] 4.72 10*6/uL Normal 4.50-5.90 [facility] Comment on above: Performed By: #### DANIEL TUCKER CDP, CP #### [facility] [address] [place] [address] [phone] Explosives Operator: Toy Zelaya MD WBC (Bld) [#/Vol] 5.4 10*3/uL Normal 3.5-11.0 [facility] Comment on above: Performed By: #### T DANIEL CORONA, CDP, CP #### [facility] [address] [place] [address] Explosives Operator: Toy Zelaya MD [facility] 10-09-2024 Albumin [Mass/Vol] 4.3 g/dL 3.5 - 5.2 g/dL [facility] ALP [Catalytic activity/Vol] 73 U/L 40 - 129 U/L [facility] ALT [Catalytic activity/Vol] 47 U/L High 5 - 41 U/L [facility] Anion gap [Moles/Vol] 12 mmol/L 9 - 17 mmol/L [facility] AST [Catalytic activity/Vol] 24 U/L NINF - 40 U/L [facility] Bilirubin [Mass/Vol] 0.4 mg/dL 0.3 - 1 .2 mg/dL [facility] Calcium [Mass/Vol] 9.2 mg/dL 8.6 - 10. 4 mg/dL [facility] Chloride [Moles/Vol] 99 mmol/L 98 - 10 7 mmol/L [facility] CO2 [Moles/Vol] 27 mmol/L 20 - 31 mmol/L [facility] Creatinine [Mass/Vol] 1.0 mg/dL 0.7 - 1.2 mg/dL [facility] Est, Glom Filt Rate - PINF [facility] Comment on above: These results are not intended for use [...] following therapy that affects renal tubular secretion. Glucose [Mass/Vol] 98 mg/dL 70 - 99 mg/dL [facility] Interpretation and review of laboratory results Abnormal [facility] Potassium [Moles/Vol] 4.0 mmol/L 3.7 - 5.3 mmol/L [facility] Protein [Mass/Vol] 6.5 g/dL 6.4 - 8.3 g/dL [facility] Sodium [Moles/Vol] 138 mmol/L 135 - 144 mmol/L [facility] Urea nitrogen [Mass/Vol] 10 mg/dL 6 - 20 mg/dL [facility] Urea nitrogen/Creatinine [Mass ratio] 10 mg/mg 9 - 20 [facility] Calcium [Mass/volume] in Ser um or PlasmaOrdered By: Yessenia Mosher on 10-09-2024 Calcium [Mass/Vol] Calcium [Mass/volume ] in Serum or Plasma 8.6-10.3 [facility] Carbon dioxide, total [Moles /volume] in Serum or PlasmaOrdered By: Yessenia Mosher on 10-09-2024 CO2 [Moles/Vol] Carbon dioxide, tota l [Moles/volume] in Serum or Plasma 21.0-31.0 [facility] Chloride [Moles/volume] in S jasvir or PlasmaOrdered By: Yessenia Mosher on 10-09-2024 Chloride [Moles/Vol] Chloride [Moles/vol ume] in Serum or Plasma 98-107 [facility] Comp Metabolic Profon 2023 Albumin [Mass/Vol] 4.3 g/dL Normal 3.5-5.2 [facility] Comment on above: Performed By: #### T DANIEL CORONA CDP, CP #### [facility] [address] [place] [address] Explosives Operator: Toy Zelaya MD Alkaline Phos 73 U/L Normal 40-129 [facility] Comment on above: Performed By: #### T DANIEL CROONA CDP, CP #### [facility] [address] [place] [address] Explosives Operator: Toy Zelaya MD ALT [Catalytic activity/Vol] 47 U/L High 5-41 [facility] Comment on above: Performed By: #### T DANIEL CORONA CDP, CP #### [facility] [address] [place] [address] Explosives Operator: Toy Zelaya MD Anion gap [Moles/Vol] 12 mmol/L Normal 9-17 [facility] Comment on above: Performed By: #### T DANIEL CORONA CDP, CP #### [facility] [address] [place] [phone] Explosives Operator: Toy Zelaya MD AST [Catalytic activity/Vol] 24 U/L Normal <40 [facility] Comment on above: Performed By: #### T DANIEL CORONA CDP, CP #### [facility] [address] [place] [address] Explosives Operator: Toy Zelaya MD Bilirubin [Mass/Vol] 0.4 mg/dL Normal 0.3-1.2 [facility] Comment on above: Performed By: #### T DANIEL CORONA CDP, CP #### [facility] [address] [place] [phone] Explosives Operator: Toy Zelaya MD BUN/CRE Ratio 10 Normal 9-20 [facility] Comment on above: Performed By: #### T DANIEL CORONA CDP, CP #### [facility] [address] [place] [phone] Explosives Operator: Toy Zelaya MD Calcium [Mass/Vol] 9.2 mg/dL Normal 8.6-10.4 [facility] Comment on above: Performed By: #### T DANIEL CORONA CDP, CP #### [facility] [address] [place] [phone] Explosives Operator: Toy Zelaya MD Chloride [Moles/Vol] 99 mmol/L Normal 98-107 [facility] Comment on above: Performed By: #### T DANIEL CORONA CDP, CP #### [facility] [address] [place], [place] [phone] Explosives Operator: Toy Zelaya MD CO2 [Moles/Vol] 27 mmol/L Normal 20-31 [facility] Comment on above: Performed By: #### T DANIEL CORONA CDP, CP #### [facility] [address] [place], [place] [phone] Explosives Operator: Toy Zelaya MD Creatinine [Mass/Vol] 1.0 mg/dL Normal 0.7-1.2 [facility] Comment on above: Performed By: #### T DANIEL CORONA CDP, CP #### [facility] [address] [place] [address] Explosives Operator: Toy Zelaya MD GFR/1.73 sq M.predicted among non-blacks MDRD (S/P/Bld) [Vol rate/Area] mL/min/{1.73_m2} Normal >60 [facility] Comment on above: Result Comment: These results are not intended [...] following therapy that affects renal tubular secretion. Performed By: #### T DANIEL CORONA CDP, CP #### [facility] [address] [place], [place] [phone] Explosives Operator: Toy Zelaya MD Glucose [Mass/Vol] 98 mg/dL Normal 70-99 [facility] Comment on above: Performed By: #### DANIEL TUCKER CDP, CP #### [facility] [address] [place], [place] [phone] Explosives Operator: Toy Zelaya MD Potassium [Moles/Vol] 4.0 mmol/L Normal 3.7-5.3 [facility] Comment on above: Performed By: #### T DANIEL CORONA CDP, CP #### [facility] [address] [place] [address] Explosives Operator: Toy Zelaya MD Protein [Mass/Vol] 6.5 g/dL Normal 6.4-8.3 [facility] Comment on above: Performed By: #### DANIEL TUCKER CDP, CP #### [facility] [address] [place] [address] Explosives Operator: Toy Zelaya MD Sodium [Moles/Vol] 138 mmol/L Normal 135-144 [facility] Comment on above: Performed By: #### T DANIEL CORONA CDP, CP #### [facility] [address] [place] [address] Explosives Operator: Toy Zelaya MD Urea nitrogen [Mass/Vol] 10 mg/dL Normal 6-20 [facility] Comment on above: Performed By: #### DANIEL TUCKER CDP, CP #### [facility] [address] [place] [address] Explosives Operator: Toy Zelaya MD Complete Blood Count Auto Di ffon 10-09-2024 Basophils (Bld) [#/Vol] 0.0 10*3/uL Normal 0.0-0.2 [facility] Comment on above: Result Comment: PERF ORMED BY: [place] [address] PATHOLOGIST [employer] FARM[employer] JOANNE ODEN M.D. Performed By: #### A SPERGALENID, ANCA, IGE #### [facility] , #### CBC #### [place] [address] [place] Basophils/100 WBC (Bld) 0.8 % Normal . [facility] Comment on above: Performed By: #### A SPERGDID, ANCA, IGE #### [facility] , #### CBC #### [address] Eosinophils (Bld) [#/Vol] 0.0 10*3/uL Normal 0.0-0.45 [facility] Comment on above: Performed By: #### A SPERGDID, ANCA, IGE #### [facility] , #### CBC #### [address] Eosinophils/100 WBC (Bld) 0.5 % Normal . [facility] Comment on above: Performed By: #### A SPERGDID, ANCA, IGE #### [facility] , #### CBC #### [address] Erythrocyte distribution width (RBC) [Ratio] 12.4 % Normal 12.0-14.8 [facility] Comment on above: Performed By: #### A SPERGDID, ANCA, IGE #### [facility] , #### CBC #### [address] Hematocrit (Bld) [Volume fraction] 43.4 % Normal 38.8-50.0 [facility] Comment on above: Performed By: #### A SPERGDID, ANCA, IGE #### [facility] , #### CBC #### [address] Hemoglobin (Bld) [Mass/Vol] 14.9 g/dL Normal 13.0-17.0 [facility] Comment on above: Performed By: #### A SPERGDID, ANCA, IGE #### [facility] , #### CBC #### [address] Lymphocytes (Bld) [#/Vol] 0.8 10*3/uL Low 1.00-4.8 [facility] Comment on above: Performed By: #### A SPERGDID, ANCA, IGE #### [facility] , #### CBC #### [address] Lymphocytes/100 WBC (Bld) 15.8 % Normal . [facility] Comment on above: Performed By: #### A SPERGDID, ANCA, IGE #### [facility] , #### CBC #### [address] MCH (RBC) [Entitic mass] 30.6 pg Normal 27.5-35.2 [facility] Comment on above: Performed By: #### A SPERGDID, ANCA, IGE #### [facility] , #### CBC #### [address] MCV (RBC) [Entitic vol] 89.1 fL Normal 83.5-101 [facility] Comment on above: Performed By: #### A SPERGDID, ANCA, IGE #### [facility] , #### CBC #### [address] Mean Corpuscular HGB Conc 34.4 g/dL Normal 32.5-35.6 [facility] Comment on above: Performed By: #### A SPERGDID, ANCA, IGE #### [facility] , #### CBC #### [address] Monocytes (Bld) [#/Vol] 0.1 10*3/uL Normal 0.0-0.8 [facility] Comment on above: Performed By: #### A SPERGDID, ANCA, IGE #### [facility] , #### CBC #### [address] Monocytes/100 WBC (Bld) 22.02 % High 0.00-20.00 [facility] Comment on above: Result Comment: For adults in ED, MDW > 20.0 may be associated with a higher risk of sepsis during the first 12 hrs of hospital admission Performed By: #### A SPERGDID, ANCA, IGE #### [facility] , #### CBC #### [place] [address] [place] Monocytes/100 WBC (Bld) 2.0 % Normal . [facility] Comment on above: Performed By: #### A SPERGDID, ANCA, IGE #### [facility] , #### CBC #### [place] [address] [place] Neutrophils (Bld) [#/Vol] 4.2 10*3/uL Normal 1.8-7.7 [facility] Comment on above: Performed By: #### A SPERGDID, ANCA, IGE #### [facility] , #### CBC #### [place] [address] [place] Neutrophils/100 WBC (Bld) 80.9 % Normal . [facility] Comment on above: Performed By: #### A SPERGDID, ANCA, IGE #### [facility] , #### CBC #### [place] [address] [place] NRBC% 0.1 /100{WBC} Normal 0-0.5 [facility] Comment on above: Performed By: #### A SPERGDID, ANCA, IGE #### [facility] , #### CBC #### [place] [address] [place] Platelet mean volume (Bld) [Entitic vol] 8.8 fL Normal 6.6-10.1 [facility] Comment on above: Performed By: #### A SPERGDID, ANCA, IGE #### [facility] , #### CBC #### [address] Platelets (Bld) [#/Vol] 267 10*3/uL Normal 150-450 [facility] Comment on above: Performed By: #### A SPERGDID, ANCA, IGE #### [facility] , #### CBC #### [address] RBC (Bld) [#/Vol] 4.87 10*6/uL Normal 3.90-5.60 [facility] Comment on above: Performed By: #### A SPERGDID, ANCA, IGE #### [facility] , #### CBC #### [address] WBC (Bld) [#/Vol] 5.2 10*3/uL Normal 4.1-10.5 [facility] Comment on above: Performed By: #### A SPERGDID, ANCA, IGE #### [facility] , #### CBC #### [address] [facility] 10-09-2024 Albumin [Mass/Vol] 4.6 g/dL Normal 3.5-5.7 [facility] Comment on above: Performed By: #### A SPERGDID, ANCA, IGE #### [facility] , #### CBC #### [address] Albumin/Globulin [Mass ratio] 2.0 {ratio} Normal [facility] Comment on above: Performed By: #### A SPERGDID, ANCA, IGE #### [facility] , #### CBC #### [address] ALP [Catalytic activity/Vol] 62 U/L Normal 34-104 [facility] Comment on above: Performed By: #### A SPERGDID, ANCA, IGE #### [facility] , #### CBC #### [address] ALT [Catalytic activity/Vol] 46 U/L Normal 7-52 [facility] Comment on above: Performed By: #### A SPERGDID, ANCA, IGE #### [facility] , #### CBC #### [address] Anion gap [Moles/Vol] 14.6 mmol/L Normal 6.0-15.0 [facility] Comment on above: Performed By: #### A SPERGDID, ANCA, IGE #### [facility] , #### CBC #### [address] AST [Catalytic activity/Vol] 23 U/L Normal 13-39 [facility] Comment on above: Performed By: #### A SPERGDID, ANCA, IGE #### [facility] , #### CBC #### [address] Bilirubin [Mass/Vol] 0.5 mg/dL Normal 0.3-1.0 [facility] Comment on above: Performed By: #### A SPERGDID, ANCA, IGE #### [facility] , #### CBC #### [facility] [address] [place] [address] [place] Calcium [Mass/Vol] 9.4 mg/dL Normal 8.6-10.3 [facility] Comment on above: Performed By: #### A SPERGDID, ANCA, IGE #### [facility] , #### CBC #### [facility] [address] [place] [address] [place] Chloride [Moles/Vol] 104 mmol/L Normal 98-107 [facility] Comment on above: Performed By: #### A SPERGDID, ANCA, IGE #### [facility] , #### CBC #### [address] CO2 [Moles/Vol] 24.2 mmol/L Normal 21.0-31.0 [facility] Comment on above: Performed By: #### A SPERGDID, ANCA, IGE #### [facility] , #### CBC #### [address] Creatinine [Mass/Vol] 0.96 mg/dL Normal 0.70-1.30 [facility] Comment on above: Performed By: #### A SPERGDID, ANCA, IGE #### [facility] , #### CBC #### [address] Creatinine Clr Calc Pharmacy 120.63 Normal [facility] Comment on above: Performed By: #### A SPERGDID, ANCA, IGE #### [facility] , #### CBC #### [place] [address] [place] GFR/1.73 sq M.predicted MDRD (S/P/Bld) [Vol rate/Area] mL/min/{1.73_m2} Normal [facility] Comment on above: Performed By: #### A SPERGDID, ANCA, IGE #### [facility] , #### CBC #### [address] Globulin (S) [Mass/Vol] 2.3 g/dL Normal [facility] Comment on above: Performed By: #### A SPERGDID, ANCA, IGE #### [facility] , #### CBC #### [address] Glucose [Mass/Vol] 158 mg/dL High 70-100 [facility] Comment on above: Result Comment: [place] Glucose Reference Range is dependent on time and content of last meal. Glucose of more than 200 mg/dL in a nonstressed, ambulatory subject supports the diagnosis of Diabetes Mellitus. ADA recommended reference range Performed By: #### A SPERGDID, ANCA, IGE #### [facility] , #### CBC #### [facility] [address] Potassium [Moles/Vol] 3.8 mmol/L Normal 3.5-5.1 [facility] Comment on above: Performed By: #### A SPERGDID, ANCA, IGE #### [facility] , #### CBC #### [address] Protein [Mass/Vol] 6.9 g/dL Normal 6.4-8.9 [facility] Comment on above: Performed By: #### A SPERGDID, ANCA, IGE #### [facility] , #### CBC #### [place] [address] [place] Sodium [Moles/Vol] 139 mmol/L Normal 136-145 [facility] Comment on above: Performed By: #### A SPERGDID, ANCA, IGE #### [facility] , #### CBC #### [place] [address] [place] Urea nitrogen [Mass/Vol] 12 mg/dL Normal 7-25 [facility] Comment on above: Performed By: #### A SPERGDID, ANCA, IGE #### [facility] , #### CBC #### [place] [address] [place] Creatinine [Mass/volume] in Serum or PlasmaOrdered By: Yessenia Mosher on 10-09-2024 Creatinine [Mass/Vol] Creatinine [Mass/volume] in Serum or Plasma 0.70-1.30 [facility] D-Dimer Teston 10-09-2024 D-Dimer Test 0.35 ug/mL FEU Normal 0.00-0.59 [facility] Comment on above: Result Comment: When combined with a low [...] patients with distal DVT. Performed By: #### T DANIEL CORONA, SHELLEY, CP #### [facility] [address] [place] [address] Explosives Operator: Toy Zelaya MD D-Dimer, Quantitativeon 09-23 Fibrin D-dimer FEU (PPP) [Mass/Vol] 0.35 [facility] Comment on above: When combined with a low clinical probability, [...] more prevalent in patients with distal DVT. [facility] ECG 12 lead ECGon 10-09-2024 ECG 12 lead ECG [facility] [place] [address] [place] [address] Electrocardiograph Report Signed Patient: Manuela Davila MR#: [id number] : 1990 Acct:[id number] Age/Sex: 33 / M ADM Date: 10/09/24 Loc: ER Room: Type[facility] ER Attending Dr: Ordering Provider: [...] Inferior leads Confirmed by Delmy Hobbs MD ([id number]) on 10/10/2024 12:47:11 AM Referred By: Electronically Signed By: Delmy Hobbs MD Transcribed By: MUS Signed By Delmy Hobbs MD 09/23 06/16 0047 Normal [facility] Eosinophils Auto (Bld) [#/Vo l]Ordered By: Yessenia Mosher on 10-09-2024 Eosinophils (Bld) [#/Vol] Automated eosinophil count 0.0-0.45 [facility] Eosinophils/100 WBC Auto (Bl d)Ordered By: Yessenia Mosher on 10-09-2024 Eosinophils/100 WBC (Bld) Automated eosinophil % . [facility] Erythrocyte distribution wid th Auto (RBC) [Ratio]Ordered By: Yessenia Mosher on 10-09-2024 Erythrocyte distribution width (RBC) [Ratio] Erythrocyte distribution width [Ratio] by Automated count 12.0-14.8 [facility] Globulin Calc (S) [Mass/Vol] Ordered By: Yessenia Mosher on 10-09-2024 Globulin (S) [Mass/Vol] Serum globulin measurement by calculation (mass/volume) [facility] Glucose [Mass/volume] in Ser um or PlasmaOrdered By: Yessenia Mosher on 10-09-2024 Glucose [Mass/Vol] Glucose [Mass/volume ] in Serum or Plasma High 70-100 [facility] Comment on above: ADA recommended refe rence rangeRandom Glucose Reference Range is dependent on time and content of last meal. Glucose of more than 200 mg/dL in a nonstressed, ambulatory subject supports the diagnosis of Diabetes Mellitus. Hematocrit Auto (Bld) [Volum e fraction]Ordered By: Yessenia Mosher on 10-09-2024 Hematocrit (Bld) [Volume fraction] Hematocrit [Volume Fraction] of Blood by Automated count 38.8-50.0 [facility] Hemoglobin [Mass/volume] in BloodOrdered By: Yessenia Mosher 10-09-2024 Hemoglobin (Bld) [Mass/Vol] Hemoglobin [Mass/volume] in Blood 13.0-17.0 [facility] INR in Platelet poor plasma by Coagulation assayOrdered By: Yessenia Mosher 10-09-2024 INR Coag (PPP) [Relative time] INR in Platelet poor plasma by Coagulation assay [facility] Comment on above: INR Therapeutic Rang e A) Pre- and Peroperative OAT started two weeks before surgery. NOT HIP SURGERY: 1.5 - 2.5 HIP SURGERY: 2 - 3B) Primary and secondary prevention of venous THROMBOSIS: 2 - 3C) Active venous thrombosis, pulmonary embolismand prevention of recurrent venous thrombosis: 2 - 3D) Prevention of arterial thromboembolismincluding patients with mechanical heart valves: 3 - 4.5 Leukocytes [#/volume] correc michael for nucleated erythrocytes in Blood by Automated counOrdered By: Yessenia Mosher on 10-09-2024 WBC corrected for nucl RBC Auto (Bld) [#/Vol] Leukocytes [#/volume] corrected for nucleated erythrocytes in Blood by Automated coun 4.1-10.5 [facility] Lymphocytes Auto (Bld) [#/Vo l]Ordered By: Yessenia Mosher on 10-09-2024 Lymphocytes (Bld) [#/Vol] Lymphocytes [#/volume] in Blood by Automated count Low 1.00-4.8 [facility] Lymphocytes/100 WBC Auto (Bl d)Ordered By: Yessenia Mosher on 10-09-2024 Lymphocytes/100 WBC (Bld) Lymphocytes/100 leukocytes in Blood by Automated count . [facility] MCH Auto (RBC) [Entitic mass ]Ordered By: Yessenia Mosher on 10-09-2024 MCH (RBC) [Entitic mass] MCH [Entitic mass] by Automated count 27.5-35.2 [facility] MCHC Auto (RBC) [Mass/Vol]Or dered By: Yessenia Mosher on 10-09-2024 MCHC (RBC) [Mass/Vol] MCHC [Mass/volume] by Automated count 32.5-35.6 [facility] MCV Auto (RBC) [Entitic vol] Ordered By: Yessenia Mosher on 10-09-2024 MCV (RBC) [Entitic vol] MCV [Entitic volume] by Automated count 83.5-101 [facility] Magnesiumon 10-09-2024 Magnesium [Mass/Vol] 1.8 mg/dL Low 1.9-2.7 [facility] Comment on above: Result Comment: PERF ORMED BY: [place] [address] PATHOLOGIST [employer] FARM[employer] JOANNE ODEN M.D. Performed By: #### A HEVER CAPELLAN IGE #### [facility] , #### CBC #### [address] Magnesium [Mass/volume] in S jasvir or PlasmaOrdered By: Yessenia Mosher on 10-09-2024 Magnesium [Mass/Vol] Magnesium [Mass/vol ume] in Serum or Plasma Low 1.9-2.7 [facility] Monocyte distribution width [Entitic volume] in Blood by AutomatedOrdered By: Yessenia Mosher on 10-09-2024 Monocyte distribution width Auto (Bld) [Entitic vol] Monocyte distribution width [Entitic volume] in Blood by Automated High 0.00-20.00 [facility] Comment on above: For adults in ED, MD W > 20.0 may be associated with a higher risk of sepsis during the first 12 hrs of hospital admission Monocytes Auto (Bld) [#/Vol] Ordered By: Yessenia Mosher on 10-09-2024 Monocytes (Bld) [#/Vol] Automated blood monocyte count 0.0-0.8 [facility] Monocytes/100 WBC Auto (Bld) Ordered By: Yessenia Mosher on 10-09-2024 Monocytes/100 WBC (Bld) Automated monocyte % . [facility] Natriuretic peptide B [Mass/ Vol]Ordered By: Yessenia Mosher on 10-09-2024 Natriuretic peptide B (Bld) [Mass/Vol] BNP ser/plas 5-100 [facility] Neutrophils Auto (Bld) [#/Vo l]Ordered By: Yessenia Mosher on 10-09-2024 Neutrophils (Bld) [#/Vol] Neutrophils [#/volume] in Blood by Automated count 1.8-7.7 [facility] Neutrophils/100 WBC Auto (Bl d)Ordered By: Yessenia Mosher on 10-09-2024 Neutrophils/100 WBC (Bld) Automated neutrophil % . [facility] No Panel InformationOrdered By: Yessenia Mosher on 10-09-2024 Estimated GFR (CKD-EPI) > 60.0 mL/Min [facility] Creatinine Clearance (Chem 120.63 [facility] Nucleated erythrocytes [Pres ence] in Blood by Automated countOrdered By: Yessenia Mosher on 10-09-2024 Nucleated RBC Auto Ql (Bld) Nucleated erythrocytes [Presence] in Blood by Automated count 0-0.5 [facility] Platelet mean volume Auto (B ld) [Entitic vol]Ordered By: Yessenia Mosher on 10-09-2024 Platelet mean volume (Bld) [Entitic vol] Platelet mean volume [Entitic volume] in Blood by Automated count 6.6-10.1 [facility] Platelets Auto (Bld) [#/Vol] Ordered By: Yessenia Mosher on 10-09-2024 Platelets (Bld) [#/Vol] Platelets [#/volume] in Blood by Automated count 150-450 [facility] Portable XR Chest AP single viewon 10-09-2024 No acute abnormality identified. [facility] RIS CONSOLIDATED ONE-VIEW CHEST RADIOGRAPH, 10/09/2024 7:34 PM EST COMPARISON: Chest, 09/11/2024 CLINICAL HISTORY: sob FINDINGS: No acute cardiopulmonary disease. No pulmonary edema, pneumothorax, or pleural effusion. Normal heart size. No acute osseous abnormality. [facility] RIS CONSOLIDATED Monik Fortune MD - 10/09/2024 ONE-VIEW CHEST RADIOGRAPH, 10/09/2024 7:34 PM EST COMPARISON: Chest, 09/11/2024 CLINICAL HISTORY: sob FINDINGS: No acute cardiopulmonary disease. No pulmonary edema, pneumothorax, or pleural effusion. Normal heart size. No acute osseous abnormality. IMPRESSION: No acute abnormality identified. [facility] Radiology Study observation (narrative) [facility] Portable XR Chest AP single viewOrdered By: Monik Fortune on 10-09-2024 [facility] Work Phone: Potassium [Moles/volume] in Serum or PlasmaOrdered By: Yessenia Mosher on 10-09-2024 Potassium [Moles/Vol] Potassium [Moles/volume] in Serum or Plasma 3.5-5.1 [facility] Protein [Mass/volume] in Ser um or PlasmaOrdered By: Yessenia Mosher on 10-09-2024 Protein [Mass/Vol] Protein [Mass/volume ] in Serum or Plasma 6.4-8.9 [facility] Prothrombin Time INRon 10-09 INR Coag (PPP) [Relative time] 1.0 {INR} Normal [facility] Comment on above: Result Comment: INR Therapeutic Range A) Pre- and Peroperative OAT started [...] heart valves: 3 - 4.5 PERFORMED BY: [place] [address] PATHOLOGIST [employer] JOANNE ODEN M.D. Performed By: #### A SPERGDID, ANCA, IGE #### [facility] , #### CBC #### [address] PT Coag (PPP) [Time] 11.2 s Normal 9.0-12.9 [facility] Comment on above: Result Comment: A he matocrit value greater than 55% may lead to inaccurate results in coagulation testing. Patients having hematocrit values >55% require a special collection tube for coagulation studies. Please contact the laboratory at [phone] for redraw instructions. Performed By: #### A SPERGDID, ANCA, IGE #### [facility] , #### CBC #### [facility] [address] [place], [place] [id number] [facility] Prothrombin time (PT)Ordered By: Yessenia Mosher on 10-09-2024 PT Coag (PPP) [Time] Prothrombin time (PT) 9.0- 12.9 [facility] Comment on above: A hematocrit value g reater than 55% may lead to inaccurate results in coagulation testing. Patients having hematocrit values >55% require a special collection tube for coagulation studies. Please contact the laboratory at [phone] for redraw instructions. RBC Auto (Bld) [#/Vol]Ordere d By: Yessenia Mosher on 10-09-2024 RBC (Bld) [#/Vol] Erythrocytes [#/volu me] in Blood by Automated count 3.90-5.60 [facility] Serum or plasma albumin/glob ulin mass ratioOrdered By: Yessenia Mosher on 10-09-2024 Albumin/Globulin [Mass ratio] Serum or plasma albumin/globulin mass ratio [facility] Serum or plasma anion gap de terminationOrdered By: Yessenia Mosher on 10-09-2024 Anion gap [Moles/Vol] Serum or plasma an ion gap determination 6.0-15.0 [facility] Sodium [Moles/volume] in Ser um or PlasmaOrdered By: Yessenia Mosher on 10-09-2024 Sodium [Moles/Vol] Sodium [Moles/volume ] in Serum or Plasma 136-145 [facility] Troponinon 10-09-2024 Troponin I.cardiac High sensitivity method [Mass/Vol] ng/L 0 - 22 ng/L [facility] Comment on above: High Sensitivity Tro ponin values cannot be compared with other Troponin methodologies. [facility] Troponin, High Sens <6 Normal 0-22 [facility] Comment on above: Result Comment: High Sensitivity Troponin values cannot be compared with other Troponin methodologies. Performed By: #### T CJ #### [facility] [address] [place] [address] Explosives Operator: Toy Zelaya MD Troponin I.cardiac High sensitivity method [Mass/Vol] 6 ng/L 0 - 22 ng/L [facility] Comment on above: High Sensitivity Tro ponin values cannot be compared with other Troponin methodologies. [facility] Troponin, High Sens 6 ng/L Normal 0-22 [facility] Comment on above: Result Comment: High Sensitivity Troponin values cannot be compared with other Troponin methodologies. Performed By: #### T DANIEL CORONA, CDP, CP #### [facility] [address] [place] [address] Explosives Operator: Toy Zelaya MD Troponin I High Sensitivityo n 10-09-2024 Troponin I High Sensitivity 2.4 pg/mL Normal 0.0-20.0 [facility] Comment on above: Result Comment: PERF ORMED BY: [facility] [address] [place] [address] PATHOLOGIST [employer] JOANNE ODEN M.D. Performed By: #### A SPERGDID, ANCA, IGE #### [facility] , #### CBC #### [facility] [address] Troponin I.cardiac [Mass/vol ume] in Serum or Plasma by Detection limit <= 0.01 ng/Ordered By: Yessenia Mosher on 10-09-2024 Troponin I.cardiac DL <= 0.01 ng/mL [Mass/Vol] Troponin I.cardiac [Mass/volume] in Serum or Plasma by Detection limit <= 0.01 ng/ 0.0-20.0 [facility] Urea nitrogen [Mass/volume] in Serum or PlasmaOrdered By: Yessenia Mosher on 10-09-2024 Urea nitrogen [Mass/Vol] Urea nitrogen [Mass/volume] in Serum or Plasma 05-17 [facility] WBC Auto (Bld) [#/Vol]Ordere d By: Yessenia Mosher on 10-09-2024 WBC (Bld) [#/Vol] Leukocytes [#/volume ] in Blood by Automated count 4.1-10.5 [facility] XR CHEST PORTABLEon 10-09-20 XR CHEST PORTABLE ONE-VIEW CHEST RADIOGRAPH, 10/09/2024 7:34 PM EST COMPARISON: Chest, 09/11/2024 CLINICAL HISTORY: sob FINDINGS: No acute cardiopulmonary disease. No pulmonary edema, pneumothorax, or pleural effusion. Normal heart size. No acute osseous abnormality. IMPRESSION: No acute abnormality identified. Interpreted by: Monik Fortune MD Signed by: Monik Fortune MD 10/09/24 Final result Normal [facility] Hemoglobin [Mass/volume] in Bloodon 10-04-2024 Hemoglobin (Bld) [Mass/Vol] Hemoglobin [Mass/volume] in Blood 14.0-18.0 [facility] Alanine aminotransferase [En zymatic activity/volume] in Serum or PlasmaOrdered By: Rich Cooper on 10-03-2024 ALT [Catalytic activity/Vol] Alanine aminotransferase [Enzymatic activity/volume] in Serum or Plasma High [facility] Albumin [Mass/volume] in Ser um or Plasma by Bromocresol green (BCG) dye binding methoOrdered By: Rich Cooper on 10-03-2024 Albumin BCG dye [Mass/Vol] Albumin [Mass/volume] in Serum or Plasma by Bromocresol green (BCG) dye binding metho 3.5-5.7 [facility] Alkaline phosphatase [Enzyma tic activity/volume] in Serum or PlasmaOrdered By: Rich Cooper on 10-03-2024 ALP [Catalytic activity/Vol] Alkaline phosphatase [Enzymatic activity/volume] in Serum or Plasma 34-104 [facility] Aspartate aminotransferase [ Enzymatic activity/volume] in Serum or PlasmaOrdered By: Rich Cooper on 10-03-2024 AST [Catalytic activity/Vol] Aspartate aminotransferase [Enzymatic activity/volume] in Serum or Plasma 13-39 [facility] B-Type Natriuretic Peptideon 10-03-2024 Natriuretic peptide B (Bld) [Mass/Vol] 30.0 pg/mL Normal 5-100 [facility] Comment on above: Result Comment: PERF ORMED BY: [facility] [address] [place] [address] PATHOLOGIST [employer]UR[employer] JOANNE ODEN M.D. Performed By: #### D DIMER, CMP, HS TROP, BNP, CBC ####[facility] Basophils Auto (Bld) [#/Vol] Ordered By: Rich Cooper on 10-03-2024 Basophils (Bld) [#/Vol] Automated basophil count 0.0-0.2 [facility] Basophils/100 WBC Auto (Bld) Ordered By: Rich Cooper on 10-03-2024 Basophils/100 WBC (Bld) Automated basophil % . [facility] Bilirubin.total [Mass/volume ] in Serum or PlasmaOrdered By: Rich Cooper on 10-03-2024 Bilirubin [Mass/Vol] Bilirubin.total [Mass/volume] in Serum or Plasma 0.3-1.0 [facility] BioFire Not Detectedon 10-03 BioFire Not Detected Not detected Normal Not Detecte T [facility] Comment on above: Result Comment: This is a duplicate RP2.1 COVID (PCR) result to be used for statistical tracking purpose only. PERFORMED BY: [facility] [address] [place] [address] PATHOLOGIST [employer] JOANNE ODEN M.D. Performed By: #### R RODRIGUEZ PANEL UPP., BIOFIRECOVNOTDE ####[facility] [id number] [place], [place] [address] COVID-19 Detected/Not Detect edOrdered By: Rich Cooper on 10-03-2024 SARS-CoV-2 (COVID-19) RNA DANILO+non-probe Ql (Nph) Not detected Not Detecte [facility] Comment on above: This is a duplicate RP2.1 COVID (PCR) result to be used for statistical tracking purpose only. Calcium [Mass/volume] in Ser um or PlasmaOrdered By: Rich Cooper on 10-03-2024 Calcium [Mass/Vol] Calcium [Mass/volume ] in Serum or Plasma 8.6-10.3 [facility] Carbon dioxide, total [Moles /volume] in Serum or PlasmaOrdered By: Rich Cooper on 10-03-2024 CO2 [Moles/Vol] Carbon dioxide, tota l [Moles/volume] in Serum or Plasma 21.0-31.0 [facility] Chloride [Moles/volume] in S jasvir or PlasmaOrdered By: Rich Cooper on 10-03-2024 Chloride [Moles/Vol] Chloride [Moles/vol ume] in Serum or Plasma 98-107 [facility] Complete Blood Count Auto Di ffon 10-03-2024 Basophils (Bld) [#/Vol] 0.0 10*3/uL Normal 0.0-0.2 [facility] Comment on above: Result Comment: PERF ORMED BY: [facility] [address] [place] [address] PATHOLOGIST [employer] JOANNE ODEN M.D. Performed By: #### D DIMER, CMP, HS TROP, BNP, CBC #### [facility] [address] [place] [address] Basophils/100 WBC (Bld) 1.0 % Normal . [facility] Comment on above: Performed By: #### D DIMER, CMP, HS TROP, BNP, CBC #### [address] Eosinophils (Bld) [#/Vol] 0.2 10*3/uL Normal 0.0-0.45 [facility] Comment on above: Performed By: #### D DIMER, CMP, HS TROP, BNP, CBC #### [address] Eosinophils/100 WBC (Bld) 3.6 % Normal . [facility] Comment on above: Performed By: #### D DIMER, CMP, HS TROP, BNP, CBC #### [address] Erythrocyte distribution width (RBC) [Ratio] 12.4 % Normal 12.0-14.8 [facility] Comment on above: Performed By: #### D DIMER, CMP, HS TROP, BNP, CBC #### [address] Hematocrit (Bld) [Volume fraction] 42.7 % Normal 38.8-50.0 [facility] Comment on above: Performed By: #### D DIMER, CMP, HS TROP, BNP, CBC #### [address] Hemoglobin (Bld) [Mass/Vol] 14.7 g/dL Normal 13.0-17.0 [facility] Comment on above: Performed By: #### D DIMER, CMP, HS TROP, BNP, CBC #### [address] Lymphocytes (Bld) [#/Vol] 1.9 10*3/uL Normal 1.00-4.8 [facility] Comment on above: Performed By: #### D DIMER, CMP, HS TROP, BNP, CBC #### [address] Lymphocytes/100 WBC (Bld) 45.4 % Normal . [facility] Comment on above: Performed By: #### D DIMER, CMP, HS TROP, BNP, CBC #### [address] [place] [address] [place] MCH (RBC) [Entitic mass] 30.6 pg Normal 27.5-35.2 [facility] Comment on above: Performed By: #### D DIMER, CMP, HS TROP, BNP, CBC #### [address] MCV (RBC) [Entitic vol] 88.6 fL Normal 83.5-101 [facility] Comment on above: Performed By: #### D DIMER, CMP, HS TROP, BNP, CBC #### [address] Mean Corpuscular HGB Conc 34.5 g/dL Normal 32.5-35.6 [facility] Comment on above: Performed By: #### D DIMER, CMP, HS TROP, BNP, CBC #### [address] Monocytes (Bld) [#/Vol] 0.6 10*3/uL Normal 0.0-0.8 [facility] Comment on above: Performed By: #### D DIMER, CMP, HS TROP, BNP, CBC #### [address] Monocytes/100 WBC (Bld) 18.13 % Normal 0.00-20.00 [facility] Comment on above: Performed By: #### D DIMER, CMP, HS TROP, BNP, CBC #### [address] Monocytes/100 WBC (Bld) 13.6 % Normal . [facility] Comment on above: Performed By: #### D DIMER, CMP, HS TROP, BNP, CBC #### [address] Neutrophils (Bld) [#/Vol] 1.5 10*3/uL Low 1.8-7.7 [facility] Comment on above: Performed By: #### D DIMER, CMP, HS TROP, BNP, CBC #### [address] Neutrophils/100 WBC (Bld) 36.4 % Normal . [facility] Comment on above: Performed By: #### D DIMER, CMP, HS TROP, BNP, CBC #### [address] NRBC% 0.1 /100{WBC} Normal 0-0.5 [facility] Comment on above: Performed By: #### D DIMER, CMP, HS TROP, BNP, CBC #### [address] Platelet mean volume (Bld) [Entitic vol] 8.7 fL Normal 6.6-10.1 [facility] Comment on above: Performed By: #### D DIMER, CMP, HS TROP, BNP, CBC #### [address] Platelets (Bld) [#/Vol] 247 10*3/uL Normal 150-450 [facility] Comment on above: Performed By: #### D DIMER, CMP, HS TROP, BNP, CBC #### [address] RBC (Bld) [#/Vol] 4.82 10*6/uL Normal 3.90-5.60 [facility] Comment on above: Performed By: #### D DIMER, CMP, HS TROP, BNP, CBC #### [address] WBC (Bld) [#/Vol] 4.2 10*3/uL Normal 4.1-10.5 [facility] Comment on above: Performed By: #### D DIMER, CMP, HS TROP, BNP, CBC #### [address] Comprehensive Metabolic Pane sky 10-03-2024 Albumin [Mass/Vol] 4.2 g/dL Normal 3.5-5.7 [facility] Comment on above: Performed By: #### D DIMER, CMP, HS TROP, BNP, CBC #### [address] Albumin/Globulin [Mass ratio] 1.8 {ratio} Normal [facility] Comment on above: Performed By: #### D DIMER, CMP, HS TROP, BNP, CBC #### [address] ALP [Catalytic activity/Vol] 51 U/L Normal 34-104 [facility] Comment on above: Result Comment: PERF ORMED BY: [place] [address] PATHOLOGIST [employer] JOANNE ODEN M.D. Performed By: #### D DIMER, CMP, HS TROP, BNP, CBC #### [address] ALT [Catalytic activity/Vol] 55 U/L High 7-52 [facility] Comment on above: Performed By: #### D DIMER, CMP, HS TROP, BNP, CBC #### [address] Anion gap [Moles/Vol] 11.6 mmol/L Normal 6.0-15.0 [facility] Comment on above: Performed By: #### D DIMER, CMP, HS TROP, BNP, CBC #### [address] AST [Catalytic activity/Vol] 24 U/L Normal 13-39 [facility] Comment on above: Performed By: #### D DIMER, CMP, HS TROP, BNP, CBC #### [address] Bilirubin [Mass/Vol] 0.5 mg/dL Normal 0.3-1.0 [facility] Comment on above: Performed By: #### D DIMER, CMP, HS TROP, BNP, CBC #### [address] Calcium [Mass/Vol] 9.5 mg/dL Normal 8.6-10.3 [facility] Comment on above: Performed By: #### D DIMER, CMP, HS TROP, BNP, CBC #### [place] [address] [place] Chloride [Moles/Vol] 103 mmol/L Normal 98-107 [facility] Comment on above: Performed By: #### D DIMER, CMP, HS TROP, BNP, CBC #### [address] CO2 [Moles/Vol] 27.5 mmol/L Normal 21.0-31.0 [facility] Comment on above: Performed By: #### D DIMER, CMP, HS TROP, BNP, CBC #### [address] Creatinine [Mass/Vol] 1.13 mg/dL Normal 0.70-1.30 [facility] Comment on above: Performed By: #### D DIMER, CMP, HS TROP, BNP, CBC #### [address] GFR/1.73 sq M.predicted MDRD (S/P/Bld) [Vol rate/Area] mL/min/{1.73_m2} Normal [facility] Comment on above: Performed By: #### D DIMER, CMP, HS TROP, BNP, CBC #### [address] Globulin (S) [Mass/Vol] 2.3 g/dL Normal [facility] Comment on above: Performed By: #### D DIMER, CMP, HS TROP, BNP, CBC #### [address] Glucose [Mass/Vol] 92 mg/dL Normal 70-100 [facility] Comment on above: Result Comment: [facility] Glucose Reference Range is dependent on time and content of last meal. Glucose of more than 200 mg/dL in a nonstressed, ambulatory subject supports the diagnosis of Diabetes Mellitus. ADA recommended reference range Performed By: #### D DIMER, CMP, HS TROP, BNP, CBC #### [address] Potassium [Moles/Vol] 4.1 mmol/L Normal 3.5-5.1 [facility] Comment on above: Performed By: #### D DIMER, CMP, HS TROP, BNP, CBC #### [facility] [address] [place] [id number] [facility] Protein [Mass/Vol] 6.5 g/dL Normal 6.4-8.9 [facility] Comment on above: Performed By: #### D DIMER, CMP, HS TROP, BNP, CBC #### [facility] [address] Sodium [Moles/Vol] 138 mmol/L Normal 136-145 [facility] Comment on above: Performed By: #### D DIMER, CMP, HS TROP, BNP, CBC #### [facility] [address] Urea nitrogen [Mass/Vol] 17 mg/dL Normal 7-25 [facility] Comment on above: Performed By: #### D DIMER, CMP, HS TROP, BNP, CBC #### [address] Creatinine [Mass/volume] in Serum or PlasmaOrdered By: Rich Cooper on 10-03-2024 Creatinine [Mass/Vol] Creatinine [Mass/volume] in Serum or Plasma 0.70-1.30 [facility] D-Dimer High Sensitivityon 1 12-04-2023 D-Dimer High Sensitivity <200 Normal 0-243 [facility] Comment on above: Result Comment: The reference range for D-dimer is <243 ng/mL D-dimer [...] coagulation studies. Please contact the laboratory at [phone] for redraw instructions. PERFORMED BY: [facility] [address] PATHOLOGIST [employer] JOANNE ODEN M.D. Performed By: #### D DIMER, CMP, HS TROP, BNP, CBC #### [address] ECG 12 lead ECGon 10-03-2024 ECG 12 lead ECG [facility] [place] [address] [place] [address] Electrocardiograph Report Signed Patient: Manuela Davila MR#: [id number] : 1990 Acct:[id number] Age/Sex: 33 / M ADM Date: 10/03/24 Loc: ER Room: [facility] ER Attending Dr: Ordering Provider: [...] Rightward axis Confirmed by Delmy Hobbs MD ([id number]) on 10/03/2024 4:51:30 PM Referred By: Electronically Signed By: Delmy Hobbs MD Transcribed By: MUS Signed By Delmy Hobbs MD 09/23 11/16 1651 Normal [facility] Eosinophils Auto (Bld) [#/Vo l]Ordered By: Rich Cooper on 10-03-2024 Eosinophils (Bld) [#/Vol] Automated eosinophil count 0.0-0.45 [facility] Eosinophils/100 WBC Auto (Bl d)Ordered By: Rich Cooper on 10-03-2024 Eosinophils/100 WBC (Bld) Automated eosinophil % . [facility] Erythrocyte distribution wid th Auto (RBC) [Ratio]Ordered By: Rich Cooper on 10-03-2024 Erythrocyte distribution width (RBC) [Ratio] Erythrocyte distribution width [Ratio] by Automated count 12.0-14.8 [facility] Fibrin D-dimer [Presence] in Platelet poor plasma by Latex agglutinationOrdered By: Rich Cooper on 10-03-2024 Fibrin D-dimer LA Ql (PPP) Fibrin D-dimer [Presence] in Platelet poor plasma by Latex agglutination 0-243 [facility] Comment on above: The reference range for D-dimer is <243 ng/mL D-dimer units.D-dimer results must be used in conjunction with a clinicalpretest probability (PTP) assessment model for deep veinthrombosis (DVT) and pulmonary embolism (PE). Results <230ng/mL d-dimer units can be used as a negative predictor inpatients with low or moderate probability for DVT/PE.Results above the exclusion threshold of 230 ng/ml D-dimerunits for DVT/PE may indicate the need for furtherdiagnostic testing.D-Dimer can be increased in hospitalized patients due toco-morbid conditions.A hematocrit value greater than 55% may lead to inaccurate results in coagulation testing. Patients having hematocrit values >55% require a special collection tube for coagulation studies. Please contact the laboratory at [phone] for redraw instructions. Globulin Calc (S) [Mass/Vol] Ordered By: Rich Cooper on 10-03-2024 Globulin (S) [Mass/Vol] Serum globulin measurement by calculation (mass/volume) [facility] Glucose [Mass/volume] in Ser um or PlasmaOrdered By: Rich Cooper on 10-03-2024 Glucose [Mass/Vol] Glucose [Mass/volume ] in Serum or Plasma 70-100 [facility] Comment on above: ADA recommended refe rence rangeRandom Glucose Reference Range is dependent on time and content of last meal. Glucose of more than 200 mg/dL in a nonstressed, ambulatory subject supports the diagnosis of Diabetes Mellitus. Hematocrit Auto (Bld) [Volum e fraction]Ordered By: Rich Cooper on 10-03-2024 Hematocrit (Bld) [Volume fraction] Hematocrit [Volume Fraction] of Blood by Automated count 38.8-50.0 [facility] Hemoglobin [Mass/volume] in BloodOrdered By: Rich Cooper on 10-03-2024 Hemoglobin (Bld) [Mass/Vol] Hemoglobin [Mass/volume] in Blood 13.0-17.0 [facility] Leukocytes [#/volume] correc michael for nucleated erythrocytes in Blood by Automated counOrdered By: Rich Cooper on 10-03-2024 WBC corrected for nucl RBC Auto (Bld) [#/Vol] Leukocytes [#/volume] corrected for nucleated erythrocytes in Blood by Automated coun 4.1-10.5 [facility] Lymphocytes Auto (Bld) [#/Vo l]Ordered By: Rich Cooper on 10-03-2024 Lymphocytes (Bld) [#/Vol] Lymphocytes [#/volume] in Blood by Automated count 1.00-4.8 [facility] Lymphocytes/100 WBC Auto (Bl d)Ordered By: Rich Cooper on 10-03-2024 Lymphocytes/100 WBC (Bld) Lymphocytes/100 leukocytes in Blood by Automated count . [facility] MCH Auto (RBC) [Entitic mass ]Ordered By: Rich Cooper on 10-03-2024 MCH (RBC) [Entitic mass] MCH [Entitic mass] by Automated count 27.5-35.2 [facility] MCHC Auto (RBC) [Mass/Vol]Or dered By: Rich Cooper on 10-03-2024 MCHC (RBC) [Mass/Vol] MCHC [Mass/volume] by Automated count 32.5-35.6 [facility] MCV Auto (RBC) [Entitic vol] Ordered By: Rich Cooper on 10-03-2024 MCV (RBC) [Entitic vol] MCV [Entitic volume] by Automated count 83.5-101 [facility] Monocyte distribution width [Entitic volume] in Blood by AutomatedOrdered By: Rich Cooper on 10-03-2024 Monocyte distribution width Auto (Bld) [Entitic vol] Monocyte distribution width [Entitic volume] in Blood by Automated 0.00-20.00 [facility] Monocytes Auto (Bld) [#/Vol] Ordered By: Rich Cooper on 10-03-2024 Monocytes (Bld) [#/Vol] Automated blood monocyte count 0.0-0.8 [facility] Monocytes/100 WBC Auto (Bld) Ordered By: Rich Cooper on 10-03-2024 Monocytes/100 WBC (Bld) Automated monocyte % . [facility] Natriuretic peptide B [Mass/ Vol]Ordered By: Rich Cooper on 10-03-2024 Natriuretic peptide B (Bld) [Mass/Vol] BNP ser/plas 5-100 [facility] Neutrophils Auto (Bld) [#/Vo l]Ordered By: Rich Cooper on 10-03-2024 Neutrophils (Bld) [#/Vol] Neutrophils [#/volume] in Blood by Automated count Low 1.8-7.7 [facility] Neutrophils/100 WBC Auto (Bl d)Ordered By: Rich Cooper on 10-03-2024 Neutrophils/100 WBC (Bld) Automated neutrophil % . [facility] No Panel InformationOrdered By: Rich Cooper on 10-03-2024 Estimated GFR (CKD-EPI) > 60.0 mL/Min [facility] Creatinine Clearance (Chem N/A [facility] Nucleated erythrocytes [Pres ence] in Blood by Automated countOrdered By: Rich Cooper on 10-03-2024 Nucleated RBC Auto Ql (Bld) Nucleated erythrocytes [Presence] in Blood by Automated count 0-0.5 [facility] Platelet mean volume Auto (B ld) [Entitic vol]Ordered By: Rich Cooper on 10-03-2024 Platelet mean volume (Bld) [Entitic vol] Platelet mean volume [Entitic volume] in Blood by Automated count 6.6-10.1 [facility] Platelets Auto (Bld) [#/Vol] Ordered By: Rich Cooper on 10-03-2024 Platelets (Bld) [#/Vol] Platelets [#/volume] in Blood by Automated count 150-450 [facility] Potassium [Moles/volume] in Serum or PlasmaOrdered By: Rich Cooper on 10-03-2024 Potassium [Moles/Vol] Potassium [Moles/volume] in Serum or Plasma 3.5-5.1 [facility] Protein [Mass/volume] in Ser um or PlasmaOrdered By: Rich Cooper on 10-03-2024 Protein [Mass/Vol] Protein [Mass/volume ] in Serum or Plasma 6.4-8.9 [facility] RBC Auto (Bld) [#/Vol]Ordere d By: Rich Cooper on 10-03-2024 RBC (Bld) [#/Vol] Erythrocytes [#/volu me] in Blood by Automated count 3.90-5.60 [facility] Respiratory (Upper) Panel, P CRon 10-03-2024 Respiratory (Upper) Panel, PCR Adenovirus Not detected Bordetella parapertussis Not detected [...] COVID-19 Detected/Not Detected Not detected Blank Space -------- FLUA TEST INCLUDES Influenza A tests for the following clinically FLUA TEST INCLUDES significant subtypes: FLUA TEST INCLUDES - Influenza A FLUA TEST INCLUDES - Influenza A H1 FLUA TEST INCLUDES - Influenza A H1 2009 FLUA TEST INCLUDES - Influenza A H3 Blank Space -------- PERFORMED BY: [facility] [address] [place] [id number] PATHOLOGIST [employer] JOANNE ODEN M.D. Normal [facility] Comment on above: Performed By: #### R RODRIGUEZ PANEL UPP., BIOFIRECOVNOTDE ####[facility] [place] [id number] [facility] Respiratory pathogens DNA an d RNA panel - Nasopharynx by DANILO with non-probe detectionOrdered By: Rich Cooper on 10-03-2024 Respiratory pathogens DNA and RNA panel DANILO+non-probe (Nph) Respiratory pathogens DNA and RNA panel - Nasopharynx by DANILO with non-probe detection [facility] Serum or plasma albumin/glob ulin mass ratioOrdered By: Rich Cooper on 10-03-2024 Albumin/Globulin [Mass ratio] Serum or plasma albumin/globulin mass ratio [facility] Serum or plasma anion gap de terminationOrdered By: Rihc Cooper on 10-03-2024 Anion gap [Moles/Vol] Serum or plasma an ion gap determination 6.0-15.0 [facility] Sodium [Moles/volume] in Ser um or PlasmaOrdered By: Rich Cooper on 10-03-2024 Sodium [Moles/Vol] Sodium [Moles/volume ] in Serum or Plasma 136-145 [facility] Troponin I High Sensitivityo n 10-03-2024 Troponin I High Sensitivity 2.6 pg/mL Normal 0.0-20.0 [facility] Comment on above: Result Comment: PERF ORMED BY: [facility] [address] [place] [address] PATHOLOGIST [employer] JOANNE ODEN M.D. Performed By: #### D DIMER, CMP, HS TROP, BNP, CBC ####[facility] [address] Troponin I.cardiac [Mass/vol ume] in Serum or Plasma by Detection limit <= 0.01 ng/Ordered By: Rich Cooper on 10-03-2024 Troponin I.cardiac DL <= 0.01 ng/mL [Mass/Vol] Troponin I.cardiac [Mass/volume] in Serum or Plasma by Detection limit <= 0.01 ng/ 0.0-20.0 [facility] Urea nitrogen [Mass/volume] in Serum or PlasmaOrdered By: Rich Cooper on 10-03-2024 Urea nitrogen [Mass/Vol] Urea nitrogen [Mass/volume] in Serum or Plasma 7-25 [facility] WBC Auto (Bld) [#/Vol]Ordere d By: Rich Cooper on 10-03-2024 WBC (Bld) [#/Vol] Leukocytes [#/volume ] in Blood by Automated count 4.1-10.5 [facility] XR chest 2V*on 10-03-2024 XR chest 2V* [facility] [place] [address] [place] [address] XRay Report Signed Patient: Manuela Davila MR#: [id number] : 1990 Acct:[id number] Age/Sex: 33 / M ADM Date: 10/03/24 Loc: ER Room: [facility] ER Attending Dr: Copies to: [...] ABNORMALITY. Impression dictated by: Finn Blum Jr., D.O.10/03/2024 4:47 PM Dictation Location: [facility] Transcribed By: [facility] 10/03/241646 Dictated By: Finn Blum Jr, DO 10/03/241646 Signed By: 10/03/24 164 Normal [facility] Antineutrophil Cytoplasmic A bon 09-26-2024 Atypical pANCA <1 Normal Neg:<1:20 [facility] Comment on above: Result Comment: The atypical pANCA pattern has been observed in a significant percentage of patients with ulcerative colitis, primary sclerosing cholangitis and autoimmune hepatitis. Performed at: - [facility] [id number] [employer] Operator: Ryan Ortega PhD, Phone: [phone] PERFORMED BY: [place] [address] PATHOLOGIST [employer] JOANNE ODEN M.D. Performed By: #### A SPERGDID, ANCA, IGE #### [facility] , #### CBC #### [place] [address] [place] Cytoplasmic (C-ANCA) <1 Normal Neg:<1:20 [facility] Comment on above: Performed By: #### A SPERGDID, ANCA, IGE #### [facility] , #### CBC #### [facility] [address] Perinuclear (P-ANCA) <1 Normal Neg:<1:20 [facility] Comment on above: Result Comment: The presence of positive fluorescence exhibiting P-ANCA or C-ANCA patterns alone is not specific for the diagnosis of Nicolas's Granulomatosis (WG) or microscopic polyangiitis. Decisions about treatment should not be based solely on ANCA IFA results. The International ANCA Group Consensus recommends follow up testing of positive sera with both WA- 3 and MPO-ANCA enzyme immunoassays. As many as 5% serum samples are positive only by EIA. Ref. AM J Clin Pathol 1999;111:507-513. Performed By: #### A SPERGDID, ANCA, IGE #### [facility] , #### CBC #### [place] [address] [place] Aspergillis Ab, Qnon 024 Aspergillus Flavus Negative Normal Neg:<1:1 [facility] Comment on above: Performed By: #### A SPERGDID, ANCA, IGE #### [facility] , #### CBC #### [place] [address] [place] Aspergillus Niger Negative Normal Neg:<1:1 [facility] Comment on above: Result Comment: Perf ormed at: - [facility] [address] [id number] [employer] Operator: Lupe Monaco MD, Phone: [phone] Performed By: #### A SPERGDID, ANCA, IGE #### [facility] , #### CBC #### [place] [address] [place] Aspergillis Ab, QnOrdered By : Tao Kwong on 09-26-2024 Aspergillus fumigatus Antibody Negative Normal Neg:<1:1 [facility] Comment on above: Performed By: #### A SPERGDID, ANCA, IGE #### [facility] , #### CBC #### [facility] [address] [place] [address] Atypical perinuclear antineu trophil cytoplasmic antibodies measurementOrdered By: Tao Kwong on 09-26-2024 Atypical p-ANCA <1:20 titer Neg:<1:20 [facility] Comment on above: The atypical pANCA p attern has been observed in asignificant percentage of patients with ulcerative colitis,primary sclerosing cholangitis and autoimmune hepatitis.Performed at: - [facility] [id number] Director: Ryan Ortega PhD, Phone: [phone] Basophils Auto (Bld) [#/Vol] Ordered By: Tao Kwong on 09-26-2024 Basophils (Bld) [#/Vol] Automated basophil count 0.0-0.2 [facility] Basophils/100 WBC Auto (Bld) Ordered By: Tao Kwong on 09-26-2024 Basophils/100 WBC (Bld) Automated basophil % . [facility] Chlamydia trachomatis DNA [P resence] in Specimen by DANILO with probe detectionOrdered By: Vero Stern on 09-26-2024 C. trachomatis DNA DANILO+probe Ql (Unsp spec) Chlamydia trachomatis DNA [Presence] in Specimen by DANILO with probe detection Negative [facility] Chlamydia/GC/Trich NAAon Chlamydia Trachomotis, DANILO Negative Normal Negative [facility] Comment on above: Order Comment: CALLB ACK SENT TO OFFICE 10/04/24 TO SEE IF THEY WANT TO CALL PATIENT TO RECOLLECT APTIMA SWAB FOR HSV 1/2 Performed By: #### R EDW K #### [facility] [address] [place] [address] [place] Neisseria Gonorrhoeae, DANILO Negative Normal Negative [facility] Comment on above: Order Comment: CALLB ACK SENT TO OFFICE 10/04/24 TO SEE IF THEY WANT TO CALL PATIENT TO RECOLLECT APTIMA SWAB FOR HSV 1/2 Performed By: #### R EDRAW K #### [facility] [address] [place] [address] [place] Trichomonas DNAILO Negative Normal Negative [facility] Comment on above: Order Comment: CALLB ACK SENT TO OFFICE 10/04/24 TO SEE IF THEY WANT TO CALL PATIENT TO RECOLLECT APTIMA SWAB FOR HSV 1/2 Result Comment: Perf ormed at: =G - [facility] [address] [id number] Explosives Operator: Shayy Mckeon MD, Phone: [phone] Performed By: #### R FRED Cardoza #### [address] Complete Blood Count Auto Di ffon 09-26-2024 Basophils (Bld) [#/Vol] 0.1 10*3/uL Normal 0.0-0.2 [facility] Comment on above: Result Comment: PERF ORMED BY: [place] [address] PATHOLOGIST TURF FARMER JOANNE ODEN M.D. Performed By: #### A SPERGDID, ANCA, IGE #### [facility] , #### CBC #### [address] Basophils/100 WBC (Bld) 1.4 % Normal . [facility] Comment on above: Performed By: #### A SPERGDID, ANCA, IGE #### [facility] , #### CBC #### [place] [address] [place] Eosinophils (Bld) [#/Vol] 0.2 10*3/uL Normal 0.0-0.45 [facility] Comment on above: Performed By: #### A SPERGDID, ANCA, IGE #### [facility] , #### CBC #### [place] [address] [place] Eosinophils/100 WBC (Bld) 5.0 % Normal . [facility] Comment on above: Performed By: #### A SPERGDID, ANCA, IGE #### [facility] , #### CBC #### [address] Erythrocyte distribution width (RBC) [Ratio] 12.3 % Normal 12.0-14.8 [facility] Comment on above: Performed By: #### A SPERGDID, ANCA, IGE #### [facility] , #### CBC #### [address] Hematocrit (Bld) [Volume fraction] 41.7 % Normal 38.8-50.0 [facility] Comment on above: Performed By: #### A SPERGDID, ANCA, IGE #### [facility] , #### CBC #### [address] Hemoglobin (Bld) [Mass/Vol] 14.2 g/dL Normal 13.0-17.0 [facility] Comment on above: Performed By: #### A SPERGDID, ANCA, IGE #### [facility] , #### CBC #### [address] Lymphocytes (Bld) [#/Vol] 2.2 10*3/uL Normal 1.00-4.8 [facility] Comment on above: Performed By: #### A SPERGDID, ANCA, IGE #### [facility] , #### CBC #### [address] Lymphocytes/100 WBC (Bld) 49.0 % Normal . [facility] Comment on above: Performed By: #### A SPERGDID, ANCA, IGE #### [facility] , #### CBC #### [address] MCH (RBC) [Entitic mass] 30.3 pg Normal 27.5-35.2 [facility] Comment on above: Performed By: #### A SPERGDID, ANCA, IGE #### [facility] , #### CBC #### [address] MCV (RBC) [Entitic vol] 89.1 fL Normal 83.5-101 [facility] Comment on above: Performed By: #### A SPERGDID, ANCA, IGE #### [facility] , #### CBC #### [address] Mean Corpuscular HGB Conc 34.0 g/dL Normal 32.5-35.6 [facility] Comment on above: Performed By: #### A SPERGDID, ANCA, IGE #### [facility] , #### CBC #### [address] Monocytes (Bld) [#/Vol] 0.5 10*3/uL Normal 0.0-0.8 [facility] Comment on above: Performed By: #### A SPERGDID, ANCA, IGE #### [facility] , #### CBC #### [address] Monocytes/100 WBC (Bld) 11.4 % Normal . [facility] Comment on above: Performed By: #### A SPERGDID, ANCA, IGE #### [facility] , #### CBC #### [address] Neutrophils (Bld) [#/Vol] 1.5 10*3/uL Low 1.8-7.7 [facility] Comment on above: Performed By: #### A SPERGDID, ANCA, IGE #### [facility] , #### CBC #### [address] Neutrophils/100 WBC (Bld) 33.2 % Normal . [facility] Comment on above: Performed By: #### A SPERGDID, ANCA, IGE #### [facility] , #### CBC #### [address] NRBC% 0.1 /100{WBC} Normal 0-0.5 [facility] Comment on above: Performed By: #### A SPERGDID, ANCA, IGE #### [facility] , #### CBC #### [address] Platelet mean volume (Bld) [Entitic vol] 8.8 fL Normal 6.6-10.1 [facility] Comment on above: Performed By: #### A SPERGDID, ANCA, IGE #### [facility] , #### CBC #### [address] Platelets (Bld) [#/Vol] 273 10*3/uL Normal 150-450 [facility] Comment on above: Performed By: #### A SPERGDID, ANCA, IGE #### [facility] , #### CBC #### [address] RBC (Bld) [#/Vol] 4.68 10*6/uL Normal 3.90-5.60 [facility] Comment on above: Performed By: #### A SPERGDID, ANCA, IGE #### [facility] , #### CBC #### [address] WBC (Bld) [#/Vol] 4.5 10*3/uL Normal 4.1-10.5 [facility] Comment on above: Performed By: #### A SPERGDID, ANCA, IGE #### [facility] , #### CBC #### [place] [address] [place] Eosinophils Auto (Bld) [#/Vo l]Ordered By: Tao Kwong on 09-26-2024 Eosinophils (Bld) [#/Vol] Automated eosinophil count 0.0-0.45 [facility] Eosinophils/100 WBC Auto (Bl d)Ordered By: Tao Kwong on 09-26-2024 Eosinophils/100 WBC (Bld) Automated eosinophil % . [facility] Erythrocyte distribution wid th Auto (RBC) [Ratio]Ordered By: Tao Kwong on 09-26-2024 Erythrocyte distribution width (RBC) [Ratio] Erythrocyte distribution width [Ratio] by Automated count 12.0-14.8 [facility] Hematocrit Auto (Bld) [Volum e fraction]Ordered By: Tao Kwong on 09-26-2024 Hematocrit (Bld) [Volume fraction] Hematocrit [Volume Fraction] of Blood by Automated count 38.8-50.0 [facility] Hemoglobin [Mass/volume] in BloodOrdered By: Tao Kwong on 09-26-2024 Hemoglobin (Bld) [Mass/Vol] Hemoglobin [Mass/volume] in Blood 13.0-17.0 [facility] IgE [Units/volume] in Serum or PlasmaOrdered By: Tao Kwong on 09-26-2024 IgE Qn IgE [Units/volume] i n Serum or Plasma 6-495 [facility] Comment on above: Performed at: BN - [facility] [address] [id number] Director: Lupe Monaco MD, Phone: [phone] Immunoglobulin Jonel 4 Immunoglobulin E 50 [IU]/mL Normal 6-495 [facility] Comment on above: Result Comment: Perf ormed at: BN - [facility] [address] [id number] Explosives Operator: Lupe Monaco MD, Phone: [phone] Performed By: #### A SPERGDID, ANCA, IGE #### [facility] , #### CBC #### [address] Leukocytes [#/volume] correc michael for nucleated erythrocytes in Blood by Automated counOrdered By: Tao Kwong on 09-26-2024 WBC corrected for nucl RBC Auto (Bld) [#/Vol] Leukocytes [#/volume] corrected for nucleated erythrocytes in Blood by Automated coun 4.1-10.5 [facility] Lymphocytes Auto (Bld) [#/Vo l]Ordered By: Tao Kwong on 09-26-2024 Lymphocytes (Bld) [#/Vol] Lymphocytes [#/volume] in Blood by Automated count 1.00-4.8 [facility] Lymphocytes/100 WBC Auto (Bl d)Ordered By: Tao Kwong on 09-26-2024 Lymphocytes/100 WBC (Bld) Lymphocytes/100 leukocytes in Blood by Automated count . [facility] MCH Auto (RBC) [Entitic mass ]Ordered By: Tao Kwong on 09-26-2024 MCH (RBC) [Entitic mass] MCH [Entitic mass] by Automated count 27.5-35.2 [facility] MCHC Auto (RBC) [Mass/Vol]Or dered By: Tao Kwong on 09-26-2024 MCHC (RBC) [Mass/Vol] MCHC [Mass/volume] by Automated count 32.5-35.6 [facility] MCV Auto (RBC) [Entitic vol] Ordered By: Tao Kwong on 09-26-2024 MCV (RBC) [Entitic vol] MCV [Entitic volume] by Automated count 83.5-101 [facility] Monocytes Auto (Bld) [#/Vol] Ordered By: Tao Kwong on 09-26-2024 Monocytes (Bld) [#/Vol] Automated blood monocyte count 0.0-0.8 [facility] Monocytes/100 WBC Auto (Bld) Ordered By: Tao Kwong on 09-26-2024 Monocytes/100 WBC (Bld) Automated monocyte % . [facility] Mycoplasma hominis [Presence ] in Unspecified specimen by Organism specific cultureOrdered By: Vero Stern on 09-26-2024 M. hominis Org specific cx Ql (Unsp spec) Mycoplasma hominis [Presence] in Unspecified specimen by Organism specific culture Negative [facility] Comment on above: Performed at: [address] [id number] Director: Lupe Monaco MD, Phone: [phone] Neisseria gonorrhoeae DNA [P resence] in Specimen by DANILO with probe detectionOrdered By: Vero Stern on 09-26-2024 N. gonorrhoeae DNA DANILO+probe Ql (Unsp spec) Neisseria gonorrhoeae DNA [Presence] in Specimen by DANILO with probe detection Negative [facility] Neutrophils Auto (Bld) [#/Vo l]Ordered By: Tao Kwong on 09-26-2024 Neutrophils (Bld) [#/Vol] Neutrophils [#/volume] in Blood by Automated count Low 1.8-7.7 [facility] Neutrophils/100 WBC Auto (Bl d)Ordered By: Tao Kwong on 09-26-2024 Neutrophils/100 WBC (Bld) Automated neutrophil % . [facility] Nucleated erythrocytes [Pres ence] in Blood by Automated countOrdered By: Tao Kwong on 09-26-2024 Nucleated RBC Auto Ql (Bld) Nucleated erythrocytes [Presence] in Blood by Automated count 0-0.5 [facility] Perinuclear antineutrophil c ytoplasmic antibody (p-ANCA) assayOrdered By: Tao Kwong on 09-26-2024 Perinuclear ANCA (p-ANCA) Antibody <1:20 titer Neg:<1:20 [facility] Comment on above: The presence of posi tive fluorescence exhibiting P-ANCA orC-ANCA patterns alone is not specific for the diagnosis ofWegener's Granulomatosis (WG) or microscopic polyangiitis.Decisions about treatment should not be based solely onANCA IFA results. The International ANCA Group Consensusrecommends follow up testing of positive sera with both WA-3 and MPO-ANCA enzyme immunoassays. As many as 5% serumsamples are positive only by EIA. Ref. AM J Clin [id number];111:507-513. Platelet mean volume Auto (B ld) [Entitic vol]Ordered By: Tao Kwong on 09-26-2024 Platelet mean volume (Bld) [Entitic vol] Platelet mean volume [Entitic volume] in Blood by Automated count 6.6-10.1 [facility] Platelets Auto (Bld) [#/Vol] Ordered By: Tao Kwong on 09-26-2024 Platelets (Bld) [#/Vol] Platelets [#/volume] in Blood by Automated count 150-450 [facility] RBC Auto (Bld) [#/Vol]Ordere d By: Tao Kwong on 09-26-2024 RBC (Bld) [#/Vol] Erythrocytes [#/volu me] in Blood by Automated count 3.90-5.60 [facility] Serum Aspergillus flavus ant ibody detection by immunodiffusionOrdered By: Tao Kwong on 09-26-2024 A. flavus Ab Immune diff Ql (S) Serum Aspergillus flavus antibody detection by immunodiffusion Neg:<1:1 [facility] Serum Aspergillus niger IgE antibody assay (units/volume)Ordered By: Tao Kwong on 09-26-2024 A. niger IgE Qn (S) Aspergillus niger Ig E Ab [Units/volume] in Serum Neg:<1:1 [facility] Comment on above: Performed at: BN - [facility] [address] [id number] Director: Lupe Monaco MD, Phone: [phone] Serum classic neutrophil cyt oplasmic antibody titer by immunofluorescenceOrdered By: Tao Kwong on 09-26-2024 Neutrophil cytoplasmic Ab.classic IF (S) [Titer] Serum classic neutrophil cytoplasmic antibody titer by immunofluorescence Neg:<1:20 [facility] Trichomonas vaginalis DNA [P resence] in Specimen by DANILO with probe detectionOrdered By: Vero Stern on 09-26-2024 T. vaginalis DNA DANILO+probe Ql (Unsp spec) Trichomonas vaginalis DNA [Presence] in Specimen by DANILO with probe detection Negative [facility] Comment on above: Performed at: =G - L [facility] [address] [id number] Director: Shayy Mckeon MD, Phone: [phone] Urea/Mycoplasma hominis Cult on 09-26-2024 Mycoplasma hominis Negative Normal Negative [facility] Comment on above: Order Comment: CALLB ACK SENT TO OFFICE 10/04/24 TO SEE IF THEY WANT TO CALL PATIENT TO RECOLLECT APTIMA SWAB FOR HSV 1/2 Result Comment: Perf ormed at: BN - [facility] [address] [id number] Explosives Operator: Lupe Monaco MD, Phone: [phone] PERFORMED BY: [place] [address] PATHOLOGIST TURF FARMER JOANNE ODEN M.D. Performed By: #### R FRED K #### [facility] [address] [place] [address] [place] Ureaplasma Urelyticum Positive Critically abnormal Negative [facility] Comment on above: Order Comment: CALLB ACK SENT TO OFFICE 10/04/24 TO SEE IF THEY WANT TO CALL PATIENT TO RECOLLECT APTIMA SWAB FOR HSV 1/2 Performed By: #### R FRED K #### [address] Ureaplasma urealyticum [Pres ence] in Unspecified specimen by Organism specific culturOrdered By: Vero Stern on 09-26-2024 U. urealyticum Org specific cx Ql (Unsp spec) Ureaplasma urealyticum [Presence] in Unspecified specimen by Organism specific cultur Abnormal Negative [facility] WBC Auto (Bld) [#/Vol]Ordere d By: Tao Kwong on 09-26-2024 WBC (Bld) [#/Vol] Leukocytes [#/volume ] in Blood by Automated count 4.1-10.5 [facility] BMPon 09-11-2024 Anion gap [Moles/Vol] 12 mmol/L 9 - 17 mmol/L [facility] [Mass/Vol] 9.3 mg/dL 8.6 - 10. 4 mg/dL [facility] Chloride [Moles/Vol] 101 mmol/L 98 - 10 7 mmol/L [facility] CO2 [Moles/Vol] 22 mmol/L 20 - 31 mmol/L [facility] Creatinine [Mass/Vol] 0.8 mg/dL 0.7 - 1.2 mg/dL [facility] Est, Glom Filt Rate - PINF [facility] Comment on above: These results are not intended for use [...] following therapy that affects renal tubular secretion. Glucose [Mass/Vol] 101 mg/dL High 70 - 99 mg/dL [facility] Interpretation and review of laboratory results Abnormal [facility] Potassium [Moles/Vol] 3.6 mmol/L Low 3.7 - 5.3 mmol/L [facility] Sodium [Moles/Vol] 135 mmol/L 135 - 144 mmol/L [facility] Urea nitrogen [Mass/Vol] 10 mg/dL 6 - 20 mg/dL [facility] Urea nitrogen/Creatinine [Mass ratio] 13 mg/mg 9 - 20 [facility] Basic Metabolic Profon 09-11 Anion gap [Moles/Vol] 12 mmol/L Normal 9-17 [facility] Comment on above: Performed By: #### T NORMANI, BNP, DIME, CDP, BMP #### [facility] [address] [place] [address] Explosives Operator: Toy Zelaya MD BUN/CRE Ratio 13 Normal 9-20 [facility] Comment on above: Performed By: #### T CJ, BNP, DIME, CDP, BMP #### [facility] [address] [place], [place] [id number] Explosives Operator: Toy Zelaya MD Calcium [Mass/Vol] 9.3 mg/dL Normal 8.6-10.4 [facility] Comment on above: Performed By: #### T ROPI, BNP, DIME, CDP, BMP #### [facility] [address] [place] [address] Explosives Operator: Toy Zelaya MD Chloride [Moles/Vol] 101 mmol/L Normal 98-107 [facility] Comment on above: Performed By: #### T ROPI, BNP, DIME, CDP, BMP #### [facility] [address] [place] [address] Explosives Operator: Toy Zelaya MD CO2 [Moles/Vol] 22 mmol/L Normal 20-31 [facility] Comment on above: Performed By: #### T ROPI, BNP, DIME, CDP, BMP #### [facility] [address] [place], [place] [id number] Explosives Operator: Toy Zelaya MD Creatinine [Mass/Vol] 0.8 mg/dL Normal 0.7-1.2 [facility] Comment on above: Performed By: #### T ROPI, BNP, DIME, CDP, BMP #### [facility] [address] [place] [address] Explosives Operator: Toy Zelaya MD GFR/1.73 sq M.predicted among non-blacks MDRD (S/P/Bld) [Vol rate/Area] mL/min/{1.73_m2} Normal >60 [facility] Comment on above: Result Comment: These results are not intended [...] following therapy that affects renal tubular secretion. Performed By: #### T ROPI, BNP, DIME, CDP, BMP #### [facility] [address] [place] [address] Explosives Operator: Toy Zelaya MD Glucose [Mass/Vol] 101 mg/dL High 70-99 [facility] Comment on above: Performed By: #### T ROPI, BNP, DIME, CDP, BMP #### [facility] [address] [place] [address] Explosives Operator: Toy Zelaya MD Potassium [Moles/Vol] 3.6 mmol/L Low 3.7-5.3 [facility] Comment on above: Performed By: #### T ROPI, BNP, DIME, CDP, BMP #### [facility] [address] [place], [place] [id number] Explosives Operator: Toy Zelaya MD Sodium [Moles/Vol] 135 mmol/L Normal 135-144 [facility] Comment on above: Performed By: #### T ROPI, BNP, DIME, CDP, BMP #### [facility] [address] [place] [address] Explosives Operator: Toy Zelaya MD Urea nitrogen [Mass/Vol] 10 mg/dL Normal 6-20 [facility] Comment on above: Performed By: #### T ROPI, BNP, DIME, CDP, BMP #### [facility] [address] [place] [id number] Explosives Operator: Toy Zelaya MD Brain Natri. Peptideon 09-11 Natriuretic peptide B (Bld) [Mass/Vol] 104 pg/mL Normal <300 [facility] Comment on above: Result Comment: An age-independent cutoff point of 300 pg/ml has a 98% negative predictive value excluding acute heart failure. Performed By: #### T ROPI, BNP, DIME, CDP, BMP #### [facility] [address] [place] [id number] Explosives Operator: Toy Zelaya MD Brain Natriuretic Peptideon 09-11-2024 Natriuretic peptide B (Bld) [Mass/Vol] 104 pg/mL NINF - 300 pg/mL [facility] Comment on above: An age-independent cutoff point of 300 pg/ml has a 98% negative predictive value excluding acute heart failure. CBC with Auto Differentialon 09-11-2024 Basophils (Bld) [#/Vol] 0.05 10*3/uL [facility] Basophils/100 WBC (Bld) 1 % 0 - 2 % [facility] Eosinophils (Bld) [#/Vol] 0.16 10*3/uL [facility] Eosin[facility]/100 WBC (Bld) 3 % 0 - 5 % [facility] Erythrocyte distribution width (RBC) [Ratio] 11.0 % Low 12.1 - 15.2 % [facility] Hematocrit (Bld) [Volume fraction] 39.2 % Low 41.0 - 53.0 % [facility] Hemoglobin (Bld) [Mass/Vol] 13.8 g/dL 13.5 - 17.5 g/dL [facility] Immature granulocytes (Bld) [#/Vol] 0.00 10*3/uL [facility] Immature granulocytes/100 WBC (Bld) 0 % 0 - 5 % [facility] Interpretation and review of laboratory results Abnormal [facility] Lymphocytes/100 WBC (Bld) 36 % 13 - 44 % [facility] Lymphocytes/100 WBC (Bld) 2.27 % [facility] MCH (RBC) [Entitic mass] 30.5 pg 26.0 - 34.0 pg [facility] MCHC (RBC) [Mass/Vol] 35.2 g/dL 31.0 - 37.0 g/dL [facility] MCV (RBC) [Entitic vol] 86.7 fL 80.0 - 100.0 fL [facility] Monocytes/100 WBC (Bld) 13 % High 5 - 9 % [facility] Monocytes/100 WBC (Bld) 0.83 % [facility] Neutrophils/100 WBC (Bld) 47 % 39 - 75 % [facility] Platelet mean volume (Bld) [Entitic vol] 10.3 fL 6.0 - 12.0 fL [facility] Platelets (Bld) [#/Vol] 220 10*3/uL [facility] RBC (Bld) [#/Vol] 4.52 10*6/uL 4.50 - 5.9 0 m/uL [facility] Segmented neutrophils/100 WBC (Bld) 2.92 % [facility] WBC other (Bld) [#/Vol] 6.2 [facility] CBC with Diffon 09-11-2024 Abs. Basophil 0.05 k/uL Normal 0.00-0.20 [facility] Comment on above: Performed By: #### T ROPI, BNP, DIME, CDP, BMP #### [facility] [address] [place] [address] Explosives Operator: Toy Zelaya MD Abs.Imm.Granulocyte 0.00 k/uL Normal 0.00-0.30 [facility] Comment on above: Performed By: #### T ROPI, BNP, DIME, CDP, BMP #### [facility] [address] [place] [address] Explosives Operator: Toy Zelaya MD Abs.Neutrophil (Seg) 2.92 k/uL Normal 2.1-6.5 [facility] Comment on above: Performed By: #### T ROPI, BNP, DIME, CDP, BMP #### [facility] [address] [place] [address] Explosives Operator: Toy Zelaya MD Basophils/100 WBC (Bld) 1 % Normal 0-2 [facility] Comment on above: Performed By: #### T ROPI, BNP, DIME, CDP, BMP #### [facility] [address] [place] [address] Explosives Operator: Toy Zelaya MD Eosinophils (Bld) [#/Vol] 0.16 10*3/uL Normal 0.00-0.40 [facility] Comment on above: Performed By: #### T ROPI, BNP, DIME, CDP, BMP #### [facility] [address] [place] [address] Explosives Operator: Toy Zelaya MD Eosinophils/100 WBC (Bld) 3 % Normal 0-5 [facility] Comment on above: Performed By: #### T ROPI, BNP, DIME, CDP, BMP #### [facility] [address] [place] [address] Explosives Operator: Toy Zelaya MD Erythrocyte distribution width (RBC) [Ratio] 11.0 % Low 12.1-15.2 [facility] Comment on above: Performed By: #### T ROPI, BNP, DIME, CDP, BMP #### [facility] [address] [place] [id number] Explosives Operator: Toy Zelaya MD Hematocrit (Bld) [Volume fraction] 39.2 % Low 41.0-53.0 [facility] Comment on above: Performed By: #### T ROPI, BNP, DIME, CDP, BMP #### [facility] [address] [place] [id number] Explosives Operator: Toy Zelaya MD Hemoglobin (Bld) [Mass/Vol] 13.8 g/dL Normal 13.5-17.5 [facility] Comment on above: Performed By: #### T ROPI, BNP, DIME, CDP, BMP #### [facility] [address] [place] [address] Explosives Operator: Toy Zelaya MD Immature granulocytes/100 WBC (Bld) 0 % Normal 0-5 [facility] Comment on above: Performed By: #### T ROPI, BNP, DIME, CDP, BMP #### [facility] [address] [place] [id number] Explosives Operator: Toy Zelaya MD Lymphocytes (Bld) [#/Vol] 2.27 10*3/uL Normal 1.00-4.80 [facility] Comment on above: Performed By: #### T ROPI, BNP, DIME, CDP, BMP #### [facility] [address] [place] [address] Explosives Operator: Toy Zelaya MD Lymphocytes/100 WBC (Bld) 36 % Normal 13-44 [facility] Comment on above: Performed By: #### T ROPI, BNP, DIME, CDP, BMP #### [facility] [address] [place] [address] Explosives Operator: Toy Zelaya MD MCH (RBC) [Entitic mass] 30.5 pg Normal 26.0-34.0 [facility] Comment on above: Performed By: #### T ROPI, BNP, DIME, CDP, BMP #### [facility] [address] [id number] Explosives Operator: Toy Zelaya MD [facility] ([facility] [Mass/Vol] 35.2 g/dL Normal 31.0-37.0 [facility] Comment on above: Performed By: #### T ROPI, BNP, DIME, CDP, BMP #### [facility] [address] [place] [address] Explosives Operator: Toy Zelaya MD MCV (RBC) [Entitic vol] 86.7 fL Normal 80.0-100.0 [facility] Comment on above: Performed By: #### T ROPI, BNP, DIME, CDP, BMP #### [facility] [address] [place] [address] Explosives Operator: Toy Zelaya MD Monocytes (Bld) [#/Vol] 0.83 10*3/uL Normal 0.00-1.00 [facility] Comment on above: Performed By: #### T ROPI, BNP, DIME, CDP, BMP #### [facility] [address] [place] [address] Explosives Operator: Toy Zelaya MD Monocytes/100 WBC (Bld) 13 % High 5-9 [facility] Comment on above: Performed By: #### T ROPI, BNP, DIME, CDP, BMP #### [facility] [address] [place] [address] Explosives Operator: Toy Zelaya MD Neutrophil (Seg) 47 % Normal 39-75 [facility] Comment on above: Performed By: #### T ROPI, BNP, DIME, CDP, BMP #### [facility] [address] [place] [address] ([phone] Explosives Operator: Toy Zelaya MD Platelet mean volume (Bld) [Entitic vol] 10.3 fL Normal 6.0-12.0 [facility] Comment on above: Performed By: #### T ROPI, BNP, DIME, CDP, BMP #### [facility] [address] [place] [address] Explosives Operator: Toy Zelaya MD Platelets (Bld) [#/Vol] 220 10*3/uL Normal 140-450 [facility] Comment on above: Performed By: #### T ROPI, BNP, DIME, CDP, BMP #### [facility] [address] [place] [address] Explosives Operator: Toy Zelaya MD RBC (Bld) [#/Vol] 4.52 10*6/uL Normal 4.50-5.90 [facility] Comment on above: Performed By: #### T ROPI, BNP, DIME, CDP, BMP #### [facility] [address] [place] [address] ([phone]) Explosives Operator: Toy Zelaya MD WBC (Bld) [#/Vol] 6.2 10*3/uL Normal 3.5-11.0 [facility] Comment on above: Performed By: #### T ROPI, BNP, DIME, CDP, BMP #### [facility] [address] [place] [address] (696) Explosives Operator: Toy Zelaya MD COVID-19, Rapidon 09-11-2024 SARS-CoV-2 (COVID-19) RdRp gene DANILO+probe Ql (Resp) Not detected Not Detected [facility] Comment on above: Rapid NAAT: The specimen is NEGATIVE for [...] management decisions. Methodology: Isothermal Nucleic Acid Amplification Specimen Description .NASOPHARYNGEAL SWAB [facility] D-Dimer Teston 09-11-2024 D-Dimer Test <0.27 Normal 0.00-0.59 [facility] Comment on above: Result Comment: When combined with a low [...] patients with distal DVT. Performed By: #### T CJ #### [facility] [address] [place] [address] Explosives Operator: Toy Zelaya MD D-Dimer, Quantitativeon 08-24 Fibrin D-dimer FEU (PPP) [Mass/Vol] [facility] Comment on above: When combined with a low clinical probability, [...] more prevalent in patients with distal DVT. [facility] No Panel Informationon 09-11 [facility] [id number] 09-11-2024 SARS-CoV-2 (COVID-19) RNA DANILO+probe Ql (Unsp spec) Not detected Normal [facility] Comment on above: Result Comment: Rapid NAAT: The specimen is [...] Isothermal Nucleic Acid Amplification Performed By: #### T ROPI #### [facility] [address] [place] [address] Explosives Operator: Toy Zelaya MD Troponinon 09-11-2024 Troponin I.cardiac High sensitivity method [Mass/Vol] 7 ng/L 0 - 22 ng/L [facility] Comment on above: High Sensitivity Tro ponin values cannot be compared with other Troponin methodologies. Troponin, High Sens 7 ng/L Normal 0-22 [facility] Comment on above: Result Comment: High Sensitivity Troponin values cannot be compared with other Troponin methodologies. Performed By: #### T ROPI #### [facility] [address] [place] [address] Explosives Operator: Toy Zelaya MD XR CHEST PORTABLEon 09-11-20 XR CHEST PORTABLE EXAM: XR CHEST OSMANI BLE HISTORY: Shortness of Breath COMPARISON: CT chest from 01/18/2024. TECHNIQUE: Portable chest done at 4:43 PM. FINDINGS: Trachea, mediastinum and heart size are unremarkable. No infiltrate or nodule or effusion or pneumothorax is noted. Diaphragm and bony elements are intact. IMPRESSION: Nonacute portable chest. Interpreted by: Darvin Palacio DO Signed by: Darvin Palacio DO 09/11/24 Final result Normal [facility] MR CARDIAC MORPHOLOGY AND FU NCTION W [...] and valvular function. COMPARISON: None. ACCESSION NUMBER(S): [id number]; [id number] ORDERING CLINICIAN: JOELLE GONZALEZ TECHNIQUE: Balderrama 1.5 [...] Leona Sanders 04/05/2024 1:46 PM Dictation workstation: [id number] [facility] MR CARDIAC RESONANCE IMAGING FOR VELOCITY FLOW [...] and valvular function. COMPARISON: None. ACCESSION NUMBER(S): [id number]; [id number] ORDERING CLINICIAN: JOELLE GONZALEZ TECHNIQUE: Balderrama 1.5 [...] Leona Sanders 04/05/2024 1:46 PM Dictation workstation: [id number] [facility] Aspergillus niger IgE Ab [Un its/volume] in Serumon 03-06-2024 A. niger IgE Qn (S) Negative Neg:<1:1 [facility] Comment on above: Performed at: [facility] [address] [id number] Director: Lupe Monaco MD, Phone: [phone] Basophils Auto (Bld) [#/Vol] on 03-06-2024 Basophils (Bld) [#/Vol] 0.1 10 3/uL 0.0-0.1 [facility] Basophils/100 WBC Auto (Bld) on 03-06-2024 Basophils/100 WBC (Bld) 0.8 % 0.2-2.0 [facility] Eosinophils/100 WBC Auto (Bl d)on 03-06-2024 Eosinophils/100 WBC (Bld) 1.9 % 0.9-7.0 [facility] Erythrocyte distribution wid th Auto (RBC) [Ratio]on 03-06-2024 Erythrocyte distribution width (RBC) [Ratio] 10.8 % 11.0-15.0 [facility] Hematocrit Auto (Bld) [Volum e fraction]on 03-06-2024 Hematocrit (Bld) [Volume fraction] 43.0 % 42.0-54.0 [facility] Hemoglobin [Mass/volume] in Bloodon 03-06-2024 Hemoglobin (Bld) [Mass/Vol] 14.9 g/dL 14.0-18.0 [facility] IgE [Units/volume] in Serum or Plasmaon 03-06-2024 IgE Qn 63 [IU]/mL 6-495 [facility] Comment on above: Performed at: [facility] [address] [id number] Director: Lupe Monaco MD, Phone: [phone] Laboratory - Hematology and Cell countson 03-06-2024 Immature granulocytes/100 WBC (Bld) 0.1 % 0.0-0.5 [facility] Leukocytes [#/volume] correc michael for nucleated erythrocytes in Blood by Automated counon 03-06-2024 WBC corrected for nucl RBC Auto (Bld) [#/Vol] 7.6 10 3/uL 4.0-11.0 [facility] Lymphocytes Auto (Bld) [#/Vo l]on 03-06-2024 Lymphocytes (Bld) [#/Vol] 2.4 10 3/uL 1.2-3.8 [facility] Lymphocytes/100 WBC Auto (Bl d)on 03-06-2024 Lymphocytes/100 WBC (Bld) 31.2 % 20.5-60.0 [facility] MCH Auto (RBC) [Entitic mass ]on 03-06-2024 MCH (RBC) [Entitic mass] 31.2 pg 25.9-34.0 [facility] MCHC Auto (RBC) [Mass/Vol]on 03-06-2024 MCHC (RBC) [Mass/Vol] 34.7 g/dL 29.9-35.2 [facility] MCV Auto (RBC) [Entitic vol] on 03-06-2024 MCV (RBC) [Entitic vol] 90.1 fL 80.0-94.0 [facility] Monocytes Auto (Bld) [#/Vol] on 03-06-2024 Monocytes (Bld) [#/Vol] 0.7 10 3/uL 0.3-0.8 [facility] Monocytes/100 WBC Auto (Bld) on 03-06-2024 Monocytes/100 WBC (Bld) 9.8 % 1.7-12.0 [facility] Myeloperoxidase Ab [Units/vo lume] in Serum by Immunoassayon 03-06-2024 Myeloperoxidase Ab IA Qn (S) <0.2 units 0.0-0.9 [facility] Neutrophils Auto (Bld) [#/Vo l]on 03-06-2024 Neutrophils (Bld) [#/Vol] 4.3 10 3/uL 1.4-6.5 [facility] Neutrophils/100 WBC Auto (Bl d)on 03-06-2024 Neutrophils/100 WBC (Bld) 56.2 % 43.0-75.0 [facility] No Panel Informationon 03-06 Aspergillus fumigatus Antibody Negative Neg:<1:1 [facility] Atypical p-ANCA <1:20 titer Neg:<1:20 [facility] Comment on above: The atypical pANCA p attern has been observed in asignificant percentage of patients with ulcerative colitis,primary sclerosing cholangitis and autoimmune hepatitis.Performed at: - [facility] [id number] Director: Lupe Monaco MD, Phone: [phone] at: - [id number] [place], [place] [id number] Director: Ryan Ortega PhD, Phone: [phone] Eosinophils # (Auto) 0.1 10 3/uL 0.0-0.7 [facility] Immature Granulocyte # (Auto) 0.01 10 3/uL 0.00-0.03 [facility] Perinuclear ANCA (p-ANCA) Antibody <1:20 titer Neg:<1:20 [facility] Comment on above: The presence of posi tive fluorescence exhibiting P-ANCA orC-ANCA patterns alone is not specific for the diagnosis ofWegener's Granulomatosis (WG) or microscopic polyangiitis.Decisions about treatment should not be based solely onANCA IFA results. The [employer] ANCA [employer] Consensusrecommends follow up testing of positive sera with both WA-3 and MPO-ANCA enzyme immunoassays. As many as 5% serumsamples are positive only by EIA. Ref. AM J Clin Uyatog0657;111:507-513. Platelet mean volume Auto (B ld) [Entitic vol]on 03-06-2024 Platelet mean volume (Bld) [Entitic vol] 10.2 fL 9.5-13.5 [facility] Platelets Auto (Bld) [#/Vol] on 03-06-2024 Platelets (Bld) [#/Vol] 237 10 3/uL 150-450 [facility] Proteinase 3 Ab [Units/volum e] in Serum by Immunoassayon 03-06-2024 Proteinase 3 Ab IA Qn (S) <0.2 units 0.0-0.9 [facility] RBC Auto (Bld) [#/Vol]on RBC (Bld) [#/Vol] 4.77 10 6/uL 4.70-6.10 [facility] Serum Aspergillus flavus ant ibody detection by immunodiffusionon 03-06-2024 A. flavus Ab Immune diff Ql (S) Negative Neg:<1:1 [facility] Serum classic neutrophil cyt oplasmic antibody titer by immunofluorescenceon 03-06-2024 Neutrophil cytoplasmic Ab.classic IF (S) [Titer] <1:20 titer Neg:<1:20 [facility] Activated partial thrombopla stin time (aPTT) in platelet poor plasma by coagulation aon 01-18-2024 aPTT Coag (PPP) [Time] 24.1 s 22.3-36.2 [facility] Basophils Auto (Bld) [#/Vol] on 01-18-2024 Basophils (Bld) [#/Vol] 0.0 10 3/uL 0.0-0.1 [facility] Basophils/100 WBC Auto (Bld) on 01-18-2024 Basophils/100 WBC (Bld) 0.4 % 0.2-2.0 [facility] Eosinophils/100 WBC Auto (Bl d)on 01-18-2024 Eosinophils/100 WBC (Bld) 0.0 % 0.9-7.0 [facility] Erythrocyte distribution wid th Auto (RBC) [Ratio]on 01-18-2024 Erythrocyte distribution width (RBC) [Ratio] 11.7 % 11.0-15.0 [facility] Estimated glomerular filtrat ion rate (GFR) non- Americanon 01-18-2024 GFR/1.73 sq M.predicted among non-blacks MDRD (S/P/Bld) [Vol rate/Area] mL/min/{1.73_m2} >=60 [facility] Fibrin D-dimer [Presence] in Platelet poor plasma by Latex agglutinationon 01-18-2024 Fibrin D-dimer LA Ql (PPP) <0.19 mg/L FEU <=0.59 [facility] Comment on above: Increases in D-Dimer concentration [...] on 01-18-2024 Globulin (S) [Mass/Vol] 3.3 g/dL [facility] Hematocrit Auto (Bld) [Volum e fraction]on 01-18-2024 Hematocrit (Bld) [Volume fraction] 44.1 % 42.0-54.0 [facility] Hemoglobin [Mass/volume] in Bloodon 01-18-2024 Hemoglobin (Bld) [Mass/Vol] 15.4 g/dL 14.0-18.0 [facility] INR in Platelet poor plasma by Coagulation assayon 01-18-2024 INR Coag (PPP) [Relative time] {INR} [facility] Comment on above: DESIRED INR:2.0-3.0 CONDITIONS NOT LISTED BELOW2.5-3.5 FOR PROSTHETIC HEART VALVE REPLACEMENT2.5-3.5 RECURRENT THROMBOSIS Laboratory - Chemistry and C hemistry - challengeon 01-18-2024 Albumin [Mass/Vol] 4.3 g/dL 3.4-5.0 [facility] ALP [Catalytic activity/Vol] 73 U/L 46-116 [facility] ALT [Catalytic activity/Vol] 125 U/L 16-63 [facility] AST [Catalytic activity/Vol] 26 U/L 15-37 [facility] Bilirubin [Mass/Vol] 0.5 mg/dL 0.2-1.0 [facility] Calcium [Mass/Vol] 9.1 mg/dL 8.5-10.1 [facility] Chloride [Moles/Vol] 100 mmol/L 98-107 [facility] CO2 [Moles/Vol] 25.4 mmol/L 21.0-32.0 [facility] Creatinine [Mass/Vol] 1.22 mg/dL 0.70-1.30 [facility] GFR/1.73 sq M.predicted MDRD (S/P/Bld) [Vol rate/Area] mL/min/{1.73_m2} >=60 [facility] Glucose [Mass/Vol] 120 mg/dL 74-106 [facility] Natriuretic peptide B (Bld) [Mass/Vol] 59.0 pg/mL <=450.0 [facility] Potassium [Moles/Vol] 3.9 mmol/L 3.5-5.1 [facility] Protein [Mass/Vol] 7.6 g/dL 6.4-8.2 [facility] Sodium [Moles/Vol] 136 mmol/L 136-145 [facility] Urea nitrogen [Mass/Vol] 23.0 mg/dL 7.0-18.0 [facility] Urea nitrogen/Creatinine [Mass ratio] 18.9 mg/mg [facility] Laboratory - Hematology and Cell countson 01-18-2024 Immature granulocytes/100 WBC (Bld) 0.7 % 0.0-0.5 [facility] Leukocytes [#/volume] correc michael for nucleated erythrocytes in Blood by Automated counon 01-18-2024 WBC corrected for nucl RBC Auto (Bld) [#/Vol] 8.2 10 3/uL 4.0-11.0 [facility] Lymphocytes Auto (Bld) [#/Vo l]on 01-18-2024 Lymphocytes (Bld) [#/Vol] 1.3 10 3/uL 1.2-3.8 [facility] Lymphocytes/100 WBC Auto (Bl d)on 01-18-2024 Lymphocytes/100 WBC (Bld) 15.3 % 20.5-60.0 [facility] MCH Auto (RBC) [Entitic mass ]on 01-18-2024 MCH (RBC) [Entitic mass] 31.4 pg 25.9-34.0 [facility] MCHC Auto (RBC) [Mass/Vol]on 01-18-2024 MCHC (RBC) [Mass/Vol] 34.9 g/dL 29.9-35.2 [facility] MCV Auto (RBC) [Entitic vol] on 01-18-2024 MCV (RBC) [Entitic vol] 89.8 fL 80.0-94.0 [facility] Monocytes Auto (Bld) [#/Vol] on 01-18-2024 Monocytes (Bld) [#/Vol] 0.3 10 3/uL 0.3-0.8 [facility] Monocytes/100 WBC Auto (Bld) on 01-18-2024 Monocytes/100 WBC (Bld) 4.0 % 1.7-12.0 [facility] Neutrophils Auto (Bld) [#/Vo l]on 01-18-2024 Neutrophils (Bld) [#/Vol] 6.5 10 3/uL 1.4-6.5 [facility] Neutrophils/100 WBC Auto (Bl d)on 01-18-2024 Neutrophils/100 WBC (Bld) 79.6 % 43.0-75.0 [facility] No Panel Informationon 01-17 Venous Blood Partial Pressure CO2 35.1 mm[Hg] 40.0-52.0 [facility] Venous Blood pH 7.459 7.330-7.430 [facility] Eosinophils # (Auto) 0.0 10 3/uL 0.0-0.7 [facility] Immature Granulocyte # (Auto) 0.06 10 3/uL 0.00-0.03 [facility] Troponin I High Sensitivity 4.7 pg/mL 4.0-76.1 [facility] Comment on above: CUT-OFF POINTS HAVE BEEN [...] volume (Bld) [Entitic vol] 10.2 fL 9.5-13.5 [facility] Platelets Auto (Bld) [#/Vol] on 01-18-2024 Platelets (Bld) [#/Vol] 311 10 3/uL 150-450 [facility] Prothrombin time (PT)on 12-23 PT Coag (PPP) [Time] 9.8 s 9.0-11.6 [facility] RBC Auto (Bld) [#/Vol]on RBC (Bld) [#/Vol] 4.91 10 6/uL 4.70-6.10 [facility] Serum or plasma albumin/glob ulin mass ratioon 01-18-2024 Albumin/Globulin [Mass ratio] 1.3 {ratio} [facility] Serum or plasma anion gap de terminationon 01-18-2024 Anion gap [Moles/Vol] 14.5 mmol/L [facility] XR chest 2V*on 01-16-2024 XR chest 2V* [facility] [place] [address] XRay Report Signed Patient: Manuela Davila MR#: [id number] : 1990 Acct:[id number] Age/Sex: 33 / M ADM Date: 01/15/24 Loc: ER Room: Type: [facility] ER Attending Dr: Copies to: Sang [...] Leticia Gee M.D.01/16/2024 8:23 AM Dictation Location: [place] [address] Transcribed By: [facility] 01/16/24822 Dictated By: Leticia Gee MD 01/16/24822 Signed By: 01/16/24822 Normal [facility] Alanine aminotransferase [En zymatic activity/volume] in Serum or PlasmaOrdered By: Sang Lovett on 01-15-2024 ALT [Catalytic activity/Vol] 69 U/L High 7-52 [facility] Comment on above: Performed By: #### R FRED Cardoza #### [address] Albumin [Mass/volume] in Ser um or Plasma by Bromocresol green (BCG) dye binding methoOrdered By: Sang Lovett on 01-15-2024 Albumin BCG dye [Mass/Vol] 4.7 g/dL 3.5-5.7 [facility] Alkaline phosphatase [Enzyma tic activity/volume] in Serum or PlasmaOrdered By: Sang Lovett on 01-15-2024 ALP [Catalytic activity/Vol] 48 U/L Normal 34-104 [facility] Comment on above: Performed By: #### R FRED Cardoza #### [address] Aspartate aminotransferase [ Enzymatic activity/volume] in Serum or PlasmaOrdered By: Sang Lovett on 01-15-2024 AST [Catalytic activity/Vol] 31 U/L Normal 13-39 [facility] Comment on above: Performed By: #### R FRED Cardoza #### [address] Automated basophil %Ordered By: Sang Lovett on 01-15-2024 Basophils/100 WBC (Bld) 0.7 % Normal . [facility] Comment on above: Performed By: #### Wilfredo Cardoza #### [address] Automated basophil countOrde red By: Sang Lovett on 01-15-2024 Basophils (Bld) [#/Vol] 0.1 10*3/uL Normal 0.0-0.2 [facility] Comment on above: Result Comment: PERF ORMED BY: [place] [address] PATHOLOGIST [employer] DONTE WHITAKER M.D. Performed By: #### R FRED Cardoza #### [address] Automated blood monocyte cou ntOrdered By: Sang Lovett on 01-15-2024 Monocytes (Bld) [#/Vol] 1.0 10*3/uL High 0.0-0.8 [facility] Comment on above: Performed By: #### Wilfredo Cardoza #### [address] Automated eosinophil %Ordere d By: Sang Lovett on 01-15-2024 Eosinophils/100 WBC (Bld) 0.1 % Normal . [facility] Comment on above: Performed By: #### Wilfredo Cardoza #### [address] Automated eosinophil countOr dered By: Sang Lovett on 01-15-2024 Eosinophils (Bld) [#/Vol] 0.0 10*3/uL Normal 0.0-0.45 [facility] Comment on above: Performed By: #### Wilfredo Cardoza #### [address] Automated monocyte %Ordered By: Sang Lvoett on 01-15-2024 Monocytes/100 WBC (Bld) 8.3 % Normal . [facility] Comment on above: Performed By: #### Wilfredo Cardoza #### [address] Automated neutrophil %Ordere d By: Sang Lovett on 01-15-2024 Neutrophils/100 WBC (Bld) 69.3 % Normal . [facility] Comment on above: Performed By: #### Wilfredo Cardoza #### [address] BNP ser/plasOrdered By: Deepti Lovett on 01-15-2024 Natriuretic peptide B (Bld) [Mass/Vol] 23.0 pg/mL Normal 5-100 [facility] Comment on above: Result Comment: PERF ORMED BY: [place] [address] PATHOLOGIST [employer] DONTE WHITAKER M.D. Performed By: #### Wilfredo Cardoza #### [address] Bilirubin.total [Mass/volume ] in Serum or PlasmaOrdered By: Sang Lovett on 01-15-2024 Bilirubin [Mass/Vol] 0.5 mg/dL Normal 0.3-1.0 [facility] Comment on above: Performed By: #### Wilfredo Cardoza #### [place] [address] [place] Calcium [Mass/volume] in Ser um or PlasmaOrdered By: Sang Lovett on 01-15-2024 Calcium [Mass/Vol] 10.0 mg/dL Normal 8.6-10.3 [facility] Comment on above: Performed By: #### Wilfredo Cardoza #### [address] Carbon dioxide, total [Moles /volume] in Serum or PlasmaOrdered By: Sang Lovett on 01-15-2024 CO2 [Moles/Vol] 25.3 mmol/L Normal 21.0-31.0 [facility] Comment on above: Performed By: #### Wilfredo Cardoza #### [place] [address] [place] Chloride [Moles/volume] in S jasvir or PlasmaOrdered By: Sang Lovett on 01-15-2024 Chloride [Moles/Vol] 103 mmol/L Normal 98-107 [facility] Comment on above: Performed By: #### Wilfredo Cardoza #### [address] Complete Blood Count Auto Di ffon 01-15-2024 Mean Corpuscular HGB Conc 34.6 g/dL Normal 32.5-35.6 [facility] Comment on above: Performed By: #### Wilfredo Cardoza #### [facility] [address] [place] [address] [place] Monocytes/100 WBC (Bld) 19.75 % Normal 0.00-20.00 [facility] Comment on above: Performed By: #### Wilfredo Cardoza #### [place] [address] [place] NRBC% 0.1 /100{WBC} Normal 0-0.5 [facility] Comment on above: Performed By: #### Wilfredo Cardoza #### [address] Comprehensive Metabolic Pane sky 01-15-2024 Albumin [Mass/Vol] 4.7 g/dL Normal 3.5-5.7 [facility] Comment on above: Performed By: #### Wilfredo BIARRA K #### [facility] [address] Anion gap [Moles/Vol] Not performed Normal 6.0-15.0 [facility] Comment on above: Performed By: #### R FRED K #### [address] Creatinine Clr Calc Pharmacy 118.10 Normal [facility] Comment on above: Result Comment: PERF ORMED BY: [place] [address] PATHOLOGIST [employer] DONTE WHITAKER M.D. Performed By: #### R FRED Cardoza #### [address] GFR/1.73 sq M.predicted MDRD (S/P/Bld) [Vol rate/Area] mL/min/{1.73_m2} Normal [facility] Comment on above: Performed By: #### Wilfredo IBARRA K #### [address] Potassium Normal 3.5-5.1 [facility] Comment on above: Result Comment: Spec imen hemolyzed, redraw requested Performed By: #### R FRED Cardoza #### [place] [address] [place] Creatine kinase [Enzymatic a ctivity/volume] in Serum or PlasmaOrdered By: Sang Lovett on 01-15-2024 CK [Catalytic activity/Vol] 429 U/L High 30-223 [facility] Comment on above: Performed By: #### Wilfredo Cardoza #### [place] [address] [place] Creatinine [Mass/volume] in Serum or PlasmaOrdered By: Sang Lovett on 01-15-2024 Creatinine [Mass/Vol] 1.00 mg/dL Normal 0.70-1.30 [facility] Comment on above: Performed By: #### R FRED Cardoza #### [facility] [address] [place] [address] ECG 12 lead ECGon 01-15-2024 ECG 12 lead ECG [facility] [place] [address] [place] [address] Electrocardiograph Report Signed Patient: Manuela Davila MR#: [id number] : 1990 Acct:[id number] Age/Sex: 33 / M ADM Date: 01/15/24 Loc: ER Room: [facility] ER Attending Dr: Ordering Provider: [...] ECGs available Confirmed by Sang Lovett DO ([id number]) on 01/15/2024 10:04:50 PM Referred By: Electronically Signed By:Sang Lovett DO Transcribed By: MUS Signed By Sang Lovett DO 2203 Normal [facility] Erythrocyte distribution wid th [Ratio] by Automated countOrdered By: Sang Lovett on 01-15-2024 Erythrocyte distribution width (RBC) [Ratio] 12.8 % Normal 12.0-14.8 [facility] Comment on above: Performed By: #### R FRED Cardoza #### [facility] [address] [place] [address] [place] Erythrocytes [#/volume] in B lood by Automated countOrdered By: Sang Lovett on 01-15-2024 RBC (Bld) [#/Vol] 4.54 10*6/uL Normal 3.90-5.60 [facility] Comment on above: Performed By: #### Wilfredo Cardoza #### [address] Glucose [Mass/volume] in Ser um or PlasmaOrdered By: Sang Lovett on 01-15-2024 Glucose [Mass/Vol] 91 mg/dL Normal 70-100 [facility] Comment on above: ADA recommended refe rence rangeRandom Glucose Reference Range is dependent on time and content of last meal. Glucose of more than 200 mg/dL in a nonstressed, ambulatory subject supports the diagnosis of Diabetes Mellitus. Result Comment: [place] Glucose Reference Range is dependent on time and content of last meal. Glucose of more than 200 mg/dL in a nonstressed, ambulatory subject supports the diagnosis of Diabetes Mellitus. ADA recommended reference range Performed By: #### R FRED Cardoza #### [address] Hematocrit [Volume Fraction] of Blood by Automated countOrdered By: Sang Lovett on 01-15-2024 Hematocrit (Bld) [Volume fraction] 41.5 % Normal 38.8-50.0 [facility] Comment on above: Performed By: #### Wilfredo Cardoza #### [address] Hemoglobin [Mass/volume] in BloodOrdered By: Sang Lovett on 01-15-2024 Hemoglobin (Bld) [Mass/Vol] 14.4 g/dL Normal 13.0-17.0 [facility] Comment on above: Performed By: #### Wilfredo Cardoza #### [address] Leukocytes [#/volume] correc michael for nucleated erythrocytes in Blood by Automated counOrdered By: Sang Lovett on 01-15-2024 WBC corrected for nucl RBC Auto (Bld) [#/Vol] 11.6 10*3/uL 4.1-10.5 [facility] Leukocytes [#/volume] in Blo od by Automated countOrdered By: Sang Lovett on 01-15-2024 WBC (Bld) [#/Vol] 11.6 10*3/uL High 4.1-10.5 [facility] Comment on above: Performed By: #### Wilfredo Cardoza #### [address] Lymphocytes [#/volume] in Bl ood by Automated countOrdered By: Sang Lovett on 01-15-2024 Lymphocytes (Bld) [#/Vol] 2.5 10*3/uL Normal 1.00-4.8 [facility] Comment on above: Performed By: #### Wilfredo Cardoza #### [address] Lymphocytes/100 leukocytes i n Blood by Automated countOrdered By: Sang Lovett on 01-15-2024 Lymphocytes/100 WBC (Bld) 21.6 % Normal . [facility] Comment on above: Performed By: #### Wilfredo Cardoza #### [address] MCH [Entitic mass] by Automa michael countOrdered By: Sang Lovett on 01-15-2024 MCH (RBC) [Entitic mass] 31.7 pg Normal 27.5-35.2 [facility] Comment on above: Performed By: #### Wilfredo Cardoza #### [address] MCHC Auto (RBC) [Mass/Vol]Or dered By: Sang Lovett on 01-15-2024 MCHC (RBC) [Mass/Vol] 34.6 g/dL 32.5-35.6 [facility] MCV [Entitic volume] by Auto mated countOrdered By: Sang Lovett on 01-15-2024 MCV (RBC) [Entitic vol] 91.5 fL Normal 83.5-101 [facility] Comment on above: Performed By: #### Wilfredo Cardoza #### [address] Monocyte distribution width [Entitic volume] in Blood by AutomatedOrdered By: Sang Lovett on 01-15-2024 Monocyte distribution width Auto (Bld) [Entitic vol] 19.75 % 0.00-20.00 [facility] Neutrophils [#/volume] in Bl ood by Automated countOrdered By: Sang Lovett on 01-15-2024 Neutrophils (Bld) [#/Vol] 8.0 10*3/uL High 1.8-7.7 [facility] Comment on above: Performed By: #### R FRED Cardoza #### [address] No Panel InformationOrdered By: Sang Lovett on 01-15-2024 Estimated GFR (CKD-EPI) > 60.0 mL/Min [facility] Creatinine Clearance (Chem 118.10 [facility] Nucleated erythrocytes [Pres ence] in Blood by Automated countOrdered By: Sang Lovett on 01-15-2024 Nucleated RBC Auto Ql (Bld) 0.1 /100{WBC} 0-0.5 [facility] Platelet mean volume [Entiti c volume] in Blood by Automated countOrdered By: Sang Lovett on 01-15-2024 Platelet mean volume (Bld) [Entitic vol] 8.8 fL Normal 6.6-10.1 [facility] Comment on above: Performed By: #### R FRED Cardoza #### [address] Platelets [#/volume] in Bloo d by Automated countOrdered By: Sang Lovett on 01-15-2024 Platelets (Bld) [#/Vol] 281 10*3/uL Normal 150-450 [facility] Comment on above: Performed By: #### Wilfredo Cardoza #### [facility] [address] [place] [address] Potassium [Moles/volume] in Serum or PlasmaOrdered By: Sang Lovett on 01-15-2024 Potassium [Moles/Vol] 3.4 mmol/L Low 3.5-5.1 [facility] Comment on above: Result Comment: PERF ORMED BY: [place] [address] PATHOLOGIST TURF FARMER DONTE WHITAKER M.D. Performed By: #### R FRED Cardoza #### [address] Protein [Mass/volume] in Ser um or PlasmaOrdered By: Sang Lovett on 01-15-2024 Protein [Mass/Vol] 6.9 g/dL Normal 6.4-8.9 [facility] Comment on above: Performed By: #### Wilfredo Cardoza #### [address] Serum globulin measurement b y calculation (mass/volume)Ordered By: Sang Lovett on 01-15-2024 Globulin (S) [Mass/Vol] 2.2 g/dL Normal [facility] Comment on above: Performed By: #### Wilfredo Cardoza #### [address] Serum or plasma albumin/glob ulin mass ratioOrdered By: Sang Lovett on 01-15-2024 Albumin/Globulin [Mass ratio] 2.1 {ratio} [facility] Comment on above: Performed By: #### Wilfredo Cardoza #### [address] Serum or plasma anion gap de terminationOrdered By: Sang Lovett on 01-15-2024 Anion gap [Moles/Vol] TNP [facility] Comment on above: Test not performed Sodium [Moles/volume] in Ser um or PlasmaOrdered By: Sang Lovett on 01-15-2024 Sodium [Moles/Vol] 137 mmol/L Normal 136-145 [facility] Comment on above: Performed By: #### Wilfredo Cardoza #### [address] Troponin I High Sensitivityo n 01-15-2024 Troponin I High Sensitivity 4.7 pg/mL Normal 0.0-20.0 [facility] Comment on above: Result Comment: PERF ORMED BY: [place] [phone] PATHOLOGIST TURF FARMER DONTE WHITAKER M.D. Performed By: #### R FRED Cardoza #### [facility] [address] Troponin I.cardiac [Mass/vol ume] in Serum or Plasma by Detection limit <= 0.01 ng/Ordered By: Sang Lovett on 01-15-2024 Troponin I.cardiac DL <= 0.01 ng/mL [Mass/Vol] 4.7 pg/mL 0.0-20.0 [facility] Urea nitrogen [Mass/volume] in Serum or PlasmaOrdered By: Sang Lovett on 01-15-2024 Urea nitrogen [Mass/Vol] 17 mg/dL Normal - [facility] Comment on above: Performed By: #### R FRED K #### [facility] [address] [place] [address] Influenza virus B Ag [Presen ce] in Upper respiratory specimen by Rapid immunoassayon 01-13-2024 FLUBV Ag IA.rapid Ql (Nph) Negative [facility] No Panel Informationon 01-12 Influenza Type A (Rapid) Negative [facility] POC SARS CoV-2 Antigen Negative [facility] COVID + FLU Quick Testingon 11-21-2023 SARS-CoV-2 (COVID-19) RNA DANILO+probe Ql (Unsp spec) Negative [facility] Other COVID + FLU Quick Testing Negative [facility] Other Quick Strepon 11-21-2023 S. pyogenes Org specific cx Ql (Throat) Negative [facility] Other Quick Strep [facility] Other Lab Reportson 10-10-2023 Lab Reports [id number]#1.00T IFF Normal [facility] Ambulatory Visit Summaryon 1 11-28-2022 Ambulatory Visit Summary MANUELA DAVILA :1990 Visit Date:09/27/2023 Ambulatory Visit Instructions Your Diagnosis Kidney stone Ureteral stone Tests Performed Urnls Dip Stick Auto w/o Microscopy POC 46395 Your Care Team Attending Physician - UNRULY GARDNER, VERO Urbina Primary Care Physician - WILY DOVER DO This Is Your Medications List [...] PERSON, Mina Nam Where: [facility] Patient Educationon 09-27-20 23 Patient Education Nephrology Dietary Guidelines to Help [...] ? 8 oz (237 mL) of milk, fpwpeeg-dpilggnivhxk-lr iry milk, and calcium-fortifiedfruit juice. Calcium-fortified means that calcium has been [...] Spinach (cooked), rhubarb, beets, sweet potatoes, and Venezuelan chard. ? Peanuts. ? Potato chips, samoan fries, and baked potatoes with skin on. ? Nuts and nut products. ? Chocolate. ? If you regularly take a diuretic medicine, make sure to eat at least 1 or 2 servings of fruits or vegetables that are high in potassium each day. These include: ? Avocado. ? Banana. ? Kamuela, prune, carrot, or tomato juice. ? Baked [...] fish oil, or vitamin B6. ? Take cfrh-hby-nhkrimh and prescription medicines only as told by your health care provider. These include supplements. What foods sh (more content not included)... Normal [facility] Urology Office/Clinic Noteon 09-27-2023 Urology Office/Clinic Note Chief Complaint Review [facility] Staff [facility] pt Last seen in our [...] No rashes or suspicious lesions Assessment/Plan Dr. Mccloud pt 1. Kidney stone (N20.0: Calculus of kidney) KUB 07/25/23 - A tiny stone overlying the R L2 transverse process measuring 3mm. R renal stone. S/p Cysto/R RGP/R stent placement 07/25/23. S/p Cysto/R stent removal/R URS/laser ablation/basket extraction/R string stent placement 08/08/23. Removed string stent IO 08/12/23. KUB 08/08/23 FR - A tiny stone at proximal R [...] Contact Information UNRULY GARDNER, VERO Urbina, URL [address] [place] [address] [phone] Additional Instructions: has f/u with [facility] 02/14/2024 Patient Education Dietary Guidelines to Help Prevent Kidney Stones Documentation recorded by the angel Lind accurately reflects the services(s) I performed and decisions made by me. Authenticated by Vero Moss PA-C on 09/27/2023 12:27:44. I, Carissa Lind, personally scribed for Vero Moss PA-C on 09/27/2023 12:17:10. . Problem List/Past [...] Protein Urine Dipstick: Negative (09/27/23 11:30:00) Specific Marion Urine Dipstick: 1.020 (09/27/23 11:30:00) Urine Appearance Urine Dipstick: Clear (09/27/23 11:30:00) Urine Color Urine Dipstick: Yellow (09/27/23 11:30:00) Urobilinogen Urine Dipstick: Normal 0.2-1 EU/dl (09/27/23 11:30:00) pH Urine Dipstick: 6 (09/27/23 11:30:00) Normal [facility] Comment on above: Result Comment: Elec tronically Signed By: VERO MOSS PA-C\.br\Date and Time Signed: 09/27/23 12:27 EST\.br\Electronically Co-Signed By: Carissa Lind\.br\Date and Time Co-Signed: 09/27/23 12:17 EST Lab Report[facility] 09-01-2023 Lab Reports [id number]#1.00T IFF Normal [facility] Lab Reportson 08-18-2023 Lab Reports [id number]#1.00T IFF Normal [facility] Formson 08-16-2023 Forms [id number]#1.00T IFF Normal [facility] Pathology Noteon 08-12-2023 Pathology Note [id number]#1.00T IFF Normal [facility] Operative Reporton Operative Report [id number]#1.00T IFF Normal [facility] RAD - MISCon 08-09-2023 RAD - MISC [id number]#1.00T IFF Normal [facility] RAD - MISC [id number]#1.00T IFF Normal [facility] Insurance Correspondenceon 1 Insurance Correspondence [id number]#1.00 TIFF Normal [facility] RAD - MISCon 08-01-2023 RAD - MIS [id number]#1.00T IFF Normal [facility] RAD - MISCon 07-27-2023 RAD - [facility] [id number]#1.00C D:127 Normal [facility] Operative Reporton Operative Report [id number]#1.00C D:127 Normal [facility] Ambulatory Visit Summaryon 1 Ambulatory Visit Summary MANUELA DAVILA Abbi :1990 Visit Date:07/25/2023 Ambulatory Visit Instructions Your Diagnosis Ureteral stone Tests Performed Urnls Dip Stick Auto w/o Microscopy POC 66275 Your Care Team Attending Physician - Mina MCCLOUD MD This Is Your Medications List Contact prescribing physician if questions or concerns valacyclovir (valacyclovir 1 g Tab) Procedures Performed History of hernia repair, Tonsillectomy. Discharge Vitals Heart Rate (Peripheral) 80 Blood Pressure 134/82 Height 175 cm Height 69 in Weight 89.5 kg Weight 196.9 lb BMI 29.22 What to do next You Need to Schedule the Following Appointments Follow Up with Mina MCCLOUD MD, URL When: Where: [address] [place] [address] [place] [phone]- Medications What When Instructions Unchanged valacyclovir (valacyclovir 1 g Tab) Contact prescribing physician if questions or concerns Test Results Urnls Dip Stick Auto w/o Microscopy POC 87652 (07/25/2023) Bilirubin Urine Dipstick - Negative Blood Urine Dipstick - Trace-lysed Glucose Urine Dipstick - Negative Ketones Urine Dipstick - Negative Leukocytes Urine Dipstick - Negative Nitrite Urine Dipstick - Negative Protein Urine Dipstick - Negative Specific Marion Urine Dipstick - >=1.030 Urine Appearance Urine [...] ? 8 oz (237 mL) of milk, famdsqw-amcjylgsziel-mk iry milk, and calcium-fortifiedfruit juice. Calcium-fortified means that calcium has been [...] These include: (more content not included)... Normal [facility] ED Note-Physicianon 07-25-20 ED Note-Physician [id number]#1.00C D:127 Normal [facility] Formson 07-25-2023 Forms [id number]#1.00C D:127 [facility] Patient Educationon 07-25-20 Patient Education Nephrology [...] ? 8 oz (237 mL) of milk, rxieahg-qnmalvpnnpbw-me iry milk, and calcium-fortifiedfruit juice. Calcium-fortified means that calcium has been [...] Spinach (cooked), rhubarb, beets, sweet potatoes, and Venezuelan chard. ? Peanuts. ? Potato chips, samoan fries, and baked potatoes with skin on. ? Nuts and nut products. ? Chocolate. ? If you regularly take a diuretic medicine, make sure to eat at least 1 or 2 servings of fruits or vegetables that are high in potassium each day. These include: ? Avocado. ? Banana. ? Kamuela, prune, carrot, or tomato juice. ? Baked [...] fish oil, or vitamin B6. ? Take ifga-kwm-wiucypg and prescription medicines only as told by your health care provider. These include supplements. What foods should I limit? Limit your in (more content not included)... Normal [facility] RAD - MISCon 07-25-2023 [facility] [id number]#1.00C D:127 Normal [facility] Urology Office/Clinic Noteon 07-25-2023 Urology Office/Clinic Note Chief Complaint Pt is here for [facility] ER f/u HPI Staff Manuela is a 32 y.o. male here for [facility] ER follow up for kidney stones w/ KUB. Pt presented to [facility] ER on 07/19/23 for RT flank pain. [...] (N20.1: Calculus of ureter) Pt presented to [facility] ER on 07/19/23 for RT flank pain. [...] possible Follow-up With When Contact Information Mina MCCLOUD MD, URL [address] [place] [address] [phone]- Additional Instructions: Sched Cysto with retro Stent Placement w/pos ureteroscopy Regina (more content not included)... Normal [facility] Comment on above: Result Comment: Elec tronically Signed By: Mina MCCLOUD MD\.br\Date and Time Signed: 07/25/23 09:50 EDT\.br\Electronically Co-Signed By: Lala Galvan\.br\Date and Time Co-Signed: 07/25/23 09:35 EDT Alanine aminotransferase [En zymatic activity/volume] in Serum or PlasmaOrdered By: Aracelis Robertson on 07-19-2023 ALT [Catalytic activity/Vol] 54 U/L 7-52 [facility] Albumin [Mass/volume] in Ser um or Plasma by Bromocresol green (BCG) dye binding methoOrdered By: Aracelis Robertson on 07-19-2023 Albumin BCG dye [Mass/Vol] 4.8 g/dL 3.5-5.7 [facility] Alkaline phosphatase [Enzyma tic activity/volume] in Serum or PlasmaOrdered By: Aracelis Robertson on 07-19-2023 ALP [Catalytic activity/Vol] 55 U/L 34-104 [facility] Aspartate aminotransferase [ Enzymatic activity/volume] in Serum or PlasmaOrdered By: Aracelis Robertson on 07-19-2023 AST [Catalytic activity/Vol] 21 U/L 13-39 [facility] Automated erythrocytes count in urine sediment (number/area)Ordered By: PROVIDER TEMP on 07-19-2023 RBC Auto (Urine sed) [#/Area] Innumerable [HPF] 0-4 [facility] Automated leukocytes count i n urine sediment (number/area)Ordered By: PROVIDER TEMP on 07-19-2023 WBC Auto (Urine sed) [#/Area] 1-2 [HPF] 0-4 [facility] Basophils Auto (Bld) [#/Vol] Ordered By: Aracelis Robertson on 07-19-2023 Basophils (Bld) [#/Vol] 0.1 10*3/uL 0.0-0.2 [facility] Basophils/100 WBC Auto (Bld) Ordered By: Aracelis Robertson on 07-19-2023 Basophils/100 WBC (Bld) 0.8 % . [facility] Bilirubin Test strip Ql (U)O rdered By: PROVIDER TEM on 07-19-2023 Bilirubin Ql (U) Negative Negative [facility] Bilirubin.direct [Mass/volum e] in Serum or PlasmaOrdered By: Aracelis Robertson on 07-19-2023 Bilirubin.direct [Mass/Vol] 0.10 mg/dL 0.03-0.18 [facility] Bilirubin.total [Mass/volume ] in Serum or PlasmaOrdered By: Aracelis Robertson on 07-19-2023 Bilirubin [Mass/Vol] 0.6 mg/dL 0.3-1.0 [facility] Calcium [Mass/volume] in Ser um or PlasmaOrdered By: Aracelis Robertson on 07-19-2023 Calcium [Mass/Vol] 10.2 mg/dL 8.6-10.3 [facility] Carbon dioxide, total [Moles /volume] in Serum or PlasmaOrdered By: Aracelis Robertson on 07-19-2023 CO2 [Moles/Vol] 29.2 mmol/L 21.0-31.0 [facility] Chloride [Moles/volume] in S jasvir or PlasmaOrdered By: Aracelis Robertson on 07-19-2023 Chloride [Moles/Vol] 103 mmol/L 98-107 [facility] Color Auto (U)Ordered By: WA OVIDER TEMP on 07-19-2023 Color (U) Kamuela Yellow [facility] Creatinine [Mass/volume] in Serum or PlasmaOrdered By: Aracelis Robertson on 07-19-2023 Creatinine [Mass/Vol] 0.99 mg/dL 0.70-1.30 [facility] Eosinophils Auto (Bld) [#/Vo l]Ordered By: Aracelis Robertson on 07-19-2023 Eosinophils (Bld) [#/Vol] 0.1 10*3/uL 0.0-0.45 [facility] Eosinophils/100 WBC Auto (Bl d)Ordered By: Aracelis Robertson on 07-19-2023 Eosinophils/100 WBC (Bld) 1.6 % . [facility] Erythrocyte distribution wid th Auto (RBC) [Ratio]Ordered By: Aracelis Robertson on 07-19-2023 Erythrocyte distribution width (RBC) [Ratio] 12.7 % 12.0-14.8 [facility] Globulin Calc (S) [Mass/Vol] Ordered By: Aracelis Robertson on 07-19-2023 Globulin (S) [Mass/Vol] 2.1 g/dL [facility] Glucose [Mass/volume] in Ser um or PlasmaOrdered By: Aracelis Robertson on 07-19-2023 Glucose [Mass/Vol] 105 mg/dL 70-100 [facility] Comment on above: ADA recommended refe rence rangeRandom Glucose Reference Range is dependent on time and content of last meal. Glucose of more than 200 mg/dL in a nonstressed, ambulatory subject supports the diagnosis of Diabetes Mellitus. Hematocrit Auto (Bld) [Volum e fraction]Ordered By: Aracelis Robertson on 07-19-2023 Hematocrit (Bld) [Volume fraction] 44.2 % 38.8-50.0 [facility] Hemoglobin [Mass/volume] in BloodOrdered By: Aracelis Robertson on 07-19-2023 Hemoglobin (Bld) [Mass/Vol] 15.2 g/dL 13.0-17.0 [facility] Ketones Auto test strip (U) [Mass/Vol]Ordered By: PROVIDER TEMP on 07-19-2023 Ketones (U) [Mass/Vol] Negative Negative Fi [facility] Laboratory - UrinalysisOrder ed By: PROVIDER TEMP on 07-19-2023 Hyaline casts LM Ql (Urine sed) None seen [LPF] 0-8 [facility] Leukocytes [#/volume] correc michael for nucleated erythrocytes in Blood by Automated counOrdered By: Aracelis Robertson on 07-19-2023 WBC corrected for nucl RBC Auto (Bld) [#/Vol] 7.8 10*3/uL 4.1-10.5 [facility] Lipase [Enzymatic activity/v olume] in Serum or PlasmaOrdered By: Aracelis Robertson on 07-19-2023 Lipase [Catalytic activity/Vol] 43.0 U/L 11.0-82.0 [facility] Lymphocytes Auto (Bld) [#/Vo l]Ordered By: Aracelis Robertson on 07-19-2023 Lymphocytes (Bld) [#/Vol] 2.1 10*3/uL 1.00-4.8 [facility] Lymphocytes/100 WBC Auto (Bl d)Ordered By: Aracelis Robertson on 07-19-2023 Lymphocytes/100 WBC (Bld) 27.4 % . [facility] MCH Auto (RBC) [Entitic mass ]Ordered By: Aracelis Robertson on 07-19-2023 MCH (RBC) [Entitic mass] 31.7 pg 27.5-35.2 [facility] MCHC Auto (RBC) [Mass/Vol]Or dered By: Aracelis Robertson on 07-19-2023 MCHC (RBC) [Mass/Vol] 34.3 g/dL 32.5-35.6 [facility] MCV Auto (RBC) [Entitic vol] Ordered By: Aracelis Robertson on 07-19-2023 MCV (RBC) [Entitic vol] 92.3 fL 83.5-101 [facility] Monocyte distribution width [Entitic volume] in Blood by AutomatedOrdered By: Aracelis Robertson on 07-19-2023 Monocyte distribution width Auto (Bld) [Entitic vol] 16.55 % 0.00-20.00 [facility] Monocytes Auto (Bld) [#/Vol] Ordered By: Aracelis Robertson on 07-19-2023 Monocytes (Bld) [#/Vol] 0.6 10*3/uL 0.0-0.8 [facility] Monocytes/100 WBC Auto (Bld) Ordered By: Aracelis Robertson on 07-19-2023 Monocytes/100 WBC (Bld) 7.1 % . [facility] Neutrophils Auto (Bld) [#/Vo l]Ordered By: Aracelis Robertson on 07-19-2023 Neutrophils (Bld) [#/Vol] 4.9 10*3/uL 1.8-7.7 [facility] Neutrophils/100 WBC Auto (Bl d)Ordered By: Aracelis Robertson on 07-19-2023 Neutrophils/100 WBC (Bld) 63.1 % . [facility] Nitrite Test strip Ql (U)Ord ered By: JUVE TEMP on 07-19-2023 Nitrite Ql (U) Negative Negative [facility] No Panel InformationOrdered By: Aracelis Robertson on 07-19-2023 Estimated GFR (CKD-EPI) > 60.0 mL/Min [facility] Creatinine Clearance (Chem 115.43 [facility] Nucleated erythrocytes [Pres ence] in Blood by Automated countOrdered By: Aracelis Robertson on 07-19-2023 Nucleated RBC Auto Ql (Bld) 0.1 /100{WBC} 0-0.5 [facility] Platelet mean volume Auto (B ld) [Entitic vol]Ordered By: Aracelis Robertson on 07-19-2023 Platelet mean volume (Bld) [Entitic vol] 8.4 fL 6.6-10.1 [facility] Platelets Auto (Bld) [#/Vol] Ordered By: Aracelis Robertson on 07-19-2023 Platelets (Bld) [#/Vol] 244 10*3/uL 150-450 [facility] Potassium [Moles/volume] in Serum or PlasmaOrdered By: Aracelis Robertson on 07-19-2023 Potassium [Moles/Vol] 3.7 mmol/L 3.5-5.1 [facility] Protein Auto test strip (U) [Mass/Vol]Ordered By: PROVIDER TEMP on 07-19-2023 Protein (U) [Mass/Vol] Trace mg/dL Negative [facility] Protein [Mass/volume] in Ser um or PlasmaOrdered By: Aracelis Robertson on 07-19-2023 Protein [Mass/Vol] 6.9 g/dL 6.4-8.9 [facility] RBC Auto (Bld) [#/Vol]Ordere d By: Aracelis Robertson on 07-19-2023 RBC (Bld) [#/Vol] 4.79 10*6/uL 3.90-5.60 [facility] Serum or plasma albumin/glob ulin mass ratioOrdered By: Aracelis Robertson on 07-19-2023 Albumin/Globulin [Mass ratio] 2.3 {ratio} [facility] Serum or plasma anion gap de terminationOrdered By: Aracelis Robertson on 07-19-2023 Anion gap [Moles/Vol] 10.5 mmol/L 6.0-15.0 [facility] Serum or plasma non-glucuron idated bilirubin measurement (mass/volume)Ordered By: Aracelis Robertson on 07-19-2023 Bilirubin.indirect [Mass/Vol] 0.5 mg/dL [facility] Sodium [Moles/volume] in Ser um or PlasmaOrdered By: Aracelis Robertson on 07-19-2023 Sodium [Moles/Vol] 139 mmol/L 136-145 [facility] Specific gravity Auto test s trip (U) [Rel density]Ordered By: PROVIDER TEMP on 07-19-2023 Specific gravity (U) [Rel density] 1.018 1.001-1.030 [facility] Squamous epithelial cells de tection in urine sediment by light microscopyOrdered By: PROVIDER TEMP on 07-19-2023 Epithelial cells.squamous LM Ql (Urine sed) None seen [HPF] 0-2 [facility] Urea nitrogen [Mass/volume] in Serum or PlasmaOrdered By: Aracelis Robertson on 07-19-2023 Urea nitrogen [Mass/Vol] 12 mg/dL 05-17 [facility] Urine bacteria detection by automated methodOrdered By: PROVIDER TEMP on 07-19-2023 Bacteria Auto Ql (U) None seen None Seen [facility] Urine clarity by refractomet ry automatedOrdered By: PROVIDER TEMP on 07-19-2023 Clarity Refractometry automated (U) Cloudy Clear [facility] Urine glucose measurement by automated test strip (mass/volume)Ordered By: PROVIDER TEMP on 07-19-2023 Glucose Auto test strip (U) [Mass/Vol] Normal mg/dL Normal [facility] Urine hemoglobin detection b y automated test stripOrdered By: PROVIDER TEMP on 07-19-2023 Hemoglobin Auto test strip Ql (U) 3+ Negative [facility] Urine leukocyte esterase det ection by automated test stripOrdered By: PROVIDER TEMP on 07-19-2023 Leukocyte esterase Auto test strip Ql (U) 1+ Negative [facility] Urobilinogen Auto test strip (U) [Mass/Vol]Ordered By: PROVIDER TEMP on 07-19-2023 Urobilinogen (U) [Mass/Vol] Normal mg/dL Normal [facility] WBC Auto (Bld) [#/Vol]Ordere d By: Aracelis Robertson on 07-19-2023 WBC (Bld) [#/Vol] 7.8 10*3/uL 4.1-10.5 [facility] pH Auto test strip (U)Ordere d By: PROVIDER TEMP on 07-19-2023 pH (U) 5.5 [pH] 5.0-9.0 [facility] Quick Strepon 07-07-2023 S. pyogenes Org specific cx Ql (Throat) Negative [facility] Other Quick Strep [facility] Other SARS-CoV-2 (COVID-19) RNA NA A+probe Ql (Resp)on 07-07-2023 SARS-CoV-2 (COVID-19) RNA DANILO+probe Ql (Unsp spec) Negative [facility] Other CARDIAC ELVIRA ADMITon 023 CK [Catalytic activity/Vol] 168 U/L Normal 39-308 [facility] Comment on above: Performed By: #### B JENNIFER, CMADM #### [facility] [address] [place] [address] Dr. Silvia De La Cruz CK.MB [Mass/Vol] 1.06 ng/mL Normal <=3.60 [facility] Comment on above: Performed By: #### B JENNIFER, JUNODM #### [facility] [address] [place] [address] Dr. Silvia De La Cruz HSTROP 5.7 pg/mL Normal 4.0-76.1 [facility] Comment on above: Result Comment: CUT- OFF POINTS HAVE BEEN ESTABLISHED BASED ON THE FOURTH UNIVERSAL DEFINITIONS OF MYOCARDIAL INFARCTION. THE UPPER REFERENCE LIMIT (URL) OF TROPONIN, DEFINED THE 99TH PERCENTILE OF cTnI DISTRIBUTION IN A REFERENCE POPULATION, HAS BEEN CONFIRMED THE DECISION THRESHOLD FOR DC DIAGNOSIS. Performed By: #### B JENNIFER, JUNODM #### [facility] [address] [place] [address] Dr. Silvia De La Cruz MATT 38 ng/mL Normal 16-96 [facility] Comment on above: Performed By: #### B JENNIFER, JUNODM #### [facility] [address] [place] [address] Dr. Silvia De La Cruz CBC AUTO DIFFon 11-04-2022 BASO # 0.1 103/ul Normal 0.0-0.1 [facility] Comment on above: Performed By: #### C BC #### [facility] [address] [place] [address] Dr. Silvia De La Cruz Basophils/100 WBC (Bld) 1.0 % Normal 0.2-2.0 [facility] Comment on above: Performed By: #### C BC #### [facility] [address] [place] [address] Dr. Silvia De La Cruz EO # 0.3 103/ul Normal 0.0-0.7 [facility] Comment on above: Performed By: #### C BC #### [facility] [address] [place] [address] Dr. Silvia De La Cruz Eosinophils/100 WBC (Bld) 6.9 % Normal 0.9-7.0 [facility] Comment on above: Performed By: #### C BC #### [facility] [address] [place] [address] Dr. Silvia De La Cruz Erythrocyte distribution width (RBC) [Ratio] 11.4 % Normal 11.0-15.0 [facility] Comment on above: Performed By: #### C BC #### [facility] [address] [place] [address] Dr. Silvia De La Cruz Hematocrit (Bld) [Volume fraction] 40.3 % Critically low 42.0-54.0 [facility] Comment on above: Performed By: #### C BC #### [facility] [address] [place] [address] Dr. Silvia De La Cruz Hemoglobin (Bld) [Mass/Vol] 13.6 g/dL Critically low 14.0-18.0 [facility] Comment on above: Performed By: #### C BC #### [facility] [address] [place] [address] Dr. Silvia De La Cruz IG # 0.00 10e3/ul Normal 0.00-0.03 [facility] Comment on above: Performed By: #### C BC #### [facility] [address] [place] [address] Dr. Silvia De La Cruz IG % 0.0 % Normal 0.0-0.5 [facility] Comment on above: Performed By: #### C BC #### [facility] [address] [place] [address] Dr. Silvia De La Cruz LYMPH # 2.4 103/ul Normal 1.2-3.8 [facility] Comment on above: Performed By: #### C BC #### [facility] [address] [place] [address] Dr. Silvia De La Cruz Lymphocytes/100 WBC (Bld) 49.1 % Normal 20.5-60.0 [facility] Comment on above: Performed By: #### C BC #### [facility] [address] [place] [address] Dr. Silvia De La Cruz MANUAL DIFF REQ NO Normal [facility] Comment on above: Performed By: #### C BC #### [facility] [address] [place] [address] Dr. Silvia De La Cruz MCH (RBC) [Entitic mass] 31.1 pg Normal 25.9-34.0 [facility] Comment on above: Performed By: #### C BC #### [facility] [address] [place] [address] Dr. Silvia De La Cruz MCHC (RBC) [Mass/Vol] 33.7 g/dL Normal 29.9-35.2 [facility] Comment on above: Performed By: #### C BC #### [facility] [address] [place] [address] Dr. Silvia De La Cruz MCV (RBC) [Entitic vol] 92.0 fL Normal 80.0-94.0 [facility] Comment on above: Performed By: #### C BC #### [facility] [address] [place] [address] Dr. Silvia De La Cruz MONO # 0.6 103/ul Normal 0.3-0.8 [facility] Comment on above: Performed By: #### C BC #### [facility] [address] [place] [address] Dr. Silvia De La Cruz Monocytes/100 WBC (Bld) 12.3 % Critically high 1.7-12.0 [facility] Comment on above: Performed By: #### C BC #### [facility] [address] [place] [address] Dr. Silvia De La Cruz NEUT # 1.5 103/ul Normal 1.4-6.5 [facility] Comment on above: Performed By: #### C BC #### [facility] [address] [place] [address] Dr. Silvia De La Cruz Neutrophils/100 WBC (Bld) 30.7 % Critically low 43.0-75.0 [facility] Comment on above: Performed By: #### C BC #### [facility] [address] [address] [address] Silvia De La Cruz Platelet mean volume (Bld) [Entitic vol] 10.6 fL Normal 9.5-13.5 [facility] Comment on above: Performed By: #### C BC #### [facility] [address] [address] [address] Silvia De La Cruz PLT 259 103/ul Normal 150-450 [facility] Comment on above: Performed By: #### C BC #### [facility] [address] [address] [address] Silvia De La Cruz RBC 4.38 106/ul Critically low 4.70-6.10 [facility] Comment on above: Performed By: #### C BC #### [facility] [address] [place] [address] Dr. Silvia De La Cruz WBC 4.8 103/ul Normal 4.0-11.0 [facility] Comment on above: Performed By: #### C BC #### [facility] [address] [place] [address] Dr. Silvia De La Cruz D-DIMERon 11-04-2022 D-DIMER 0.36 mg/L FEU Normal <=0.59 [facility] Comment on above: Performed By: #### D DIM #### [facility] [address] [place] [address] Dr. Silvia De La Cruz D-DIMER COMMENTS SEE BELOW Normal [facility] Comment on above: Result Comment: Incr [...] By: #### D DIM #### [facility] [address] [place] [address] Dr. Silvia De La Cruz PROF CHEM 8 (BAS METB)on Anion gap [Moles/Vol] 11.0 mmol/L Normal [facility] Comment on above: Performed By: #### B JENNIFER, JUNODM #### [facility] [address] [place] [address] Dr. Silvia De La Cruz Calcium [Mass/Vol] 8.9 mg/dL Normal 8.5-10.1 [facility] Comment on above: Performed By: #### B JENNIFER, CMADM #### [facility] [address] [place] [address] Dr. Silvia De La Cruz Chloride [Moles/Vol] 101 mmol/L Normal 98-107 [facility] Comment on above: Performed By: #### B JENNIFER, JUNODM #### [facility] [address] [place] [address] Dr. Silvia De La Cruz CO2 [Moles/Vol] 29.1 mmol/L Normal 21.0-32.0 [facility] Comment on above: Performed By: #### B JUNO RODRIGUEZDM #### [facility] [address] [place] [address] Dr. Silvia De La Cruz Creatinine [Mass/Vol] 0.77 mg/dL Normal 0.70-1.30 [facility] Comment on above: Performed By: #### Sanya RODRIGUEZ, JUNODM #### [facility] [address] [place] [address] Dr. Silvia De La Cruz EGFR-AF BAHAMIAN >60 Normal >=60 [facility] Comment on above: Performed By: #### B JENNIFER, JUNODM #### [facility] [address] [place] [address] Dr. Silvia De La Cruz EGFR-NON AF BAHAMIAN >60 Normal >=60 [facility] Comment on above: Performed By: #### B JENNIFER, JUNODM #### [facility] [address] [place] [address] Dr. Silvia De La Cruz Glucose [Mass/Vol] 102 mg/dL Normal 74-106 [facility] Comment on above: Performed By: #### B HECTOR RODRIGUEZ #### [facility] [address] [place] [address] Dr. Silvia De La Cruz Potassium [Moles/Vol] 4.1 mmol/L Normal 3.5-5.1 [facility] Comment on above: Performed By: #### B JENNIFER, HECTOR #### [facility] [address] [address] [address] Silvia De La Cruz Sodium [Moles/Vol] 137 mmol/L Normal 136-145 [facility] Comment on above: Performed By: #### B JENNIFER, JUNODM #### [facility] [address] [address] [address] Silvia De La Cruz Urea nitrogen [Mass/Vol] 16.0 mg/dL Normal 7.0-18.0 [facility] Comment on above: Performed By: #### B JENNIFER, HECTOR #### [facility] [address] [place] [address] Dr. Silvia De La Cruz Urea nitrogen/Creatinine [Mass ratio] 20.8 mg/mg Normal [facility] Comment on above: Performed By: #### B JENNIFER, HECTOR #### [facility] [address] [place] [address] Dr. Silvia De La Cruz XR CHEST [...] by: LEONA JACK Date: 2022-11-04 00:16 Normal [facility] UR Drugs of Abuse Panelon Drug Screen Comment see below Normal [facility] Comment on above: Result Comment: This method is a screening test to detect only these drug classes as part of a medical workup. Confirmatory testing by another method should be ordered if clinically indicated. Performed By: #### U DRGS #### [facility] [address] [place] [address] UR Amphetamines Screen Negative Normal Negative < [facility] Comment on above: Performed By: #### U DRGS #### [facility] [address] [place] [address] UR Barbiturates Screen Negative Normal Negative < [facility] Comment on above: Performed By: #### U DRGS #### [facility] [address] [place] [address] UR Benzo Screen Positive Abnormal Negative < [facility] Comment on above: Performed By: #### U DRGS #### [facility] [address] [place] [address] UR Cannabinoids Screen Positive Abnormal Negative < [facility] Comment on above: Performed By: #### U DRGS #### [facility] [address] [place] [address] UR Cocaine Screen Negative Normal Negative < [facility] Comment on above: Performed By: #### U DRGS #### [facility] [address] [place] [address] UR Fentanyl Screen Positive Abnormal Negative < [facility] Comment on above: Performed By: #### U DRGS #### [facility] [address] [place] [address] UR Methadone Screen Negative Normal Negative < [facility] Comment on above: Performed By: #### U DRGS #### [facility] [address] [place] [address] UR Opiates Screen Negative Normal Negative < [facility] Comment on above: Performed By: #### U DRGS #### [facility] [address] [place] [address] UR Oxycodone Screen Negative Normal Negative < [facility] Comment on above: Performed By: #### U DRGS #### [facility] [address] [place] [address] UR PCP Screen Negative Normal Negative < [facility] Comment on above: Performed By: #### U DRGS #### [facility] [address] [place] [address] UR Propoxyphene Screen Negative Normal Negative < [facility] Comment on above: Performed By: #### U DRGS #### [facility] [address] [place] [address] Urine Drug Screenon 08-21-20 22 Amphetamine Screen, Urine Negative Negative <1000 ng/mL [facility] Barbiturate Screen, Ur Negative Negat kira < 200 ng/mL [facility] Benzodiazepine Screen, Urine Positive Abnormal Negative < 200 ng/mL [facility] Cannabinoid Scrn, Ur Positive Abnormal Negativ e < 50 ng/mL [facility] Cocaine Metabolite Screen, Urine Negative Negative < 300 ng/mL [facility] Drug Screen Comment: see below [facility] Comment on above: This method is a scr eening test to detect only these drug classes as part of a medical workup. Confirmatory testing by another method should be ordered if clinically indicated. FENTANYL SCREEN, URINE Positive Abnormal Negat kira < 50 ng/mL [facility] Interpretation and review of laboratory results Abnormal [facility] Methadone Screen, Urine Negative Negative <300 ng/mL [facility] Opiate Scrn, Ur Negative Negative < 300 ng/mL [facility] Oxycodone Urine Negative Negative <100 ng/mL [facility] PCP Screen, Urine Negative Negative < 25 ng/mL [facility] Propoxyphene Scrn, Ur Negative Negati ve <300 ng/mL [facility] POC Influenza A/B and SARS A ntigen manually resultedOrdered By: Skip Sarmiento on 08-02-2022 FLUAV Ag IA.rapid Ql (Nph) Negative Negative [facility] FLUBV Ag IA.rapid Ql (Nph) Negative Negative [facility] INTERNAL CONTROLS Acceptable [facility] SARS-CoV+SARS-CoV-2 (COVID-19) Ag IA.rapid Ql (Resp) Negative Presumptive Negative [facility] CARDIAC ELVIRA ADMITon 022 CK [Catalytic activity/Vol] 181 U/L Normal 39-308 [facility] Comment on above: Performed By: #### B HECTOR RODRIGUEZ ####[facility] [address] [address]Dr. Silvia De La Cruz CK.MB [Mass/Vol] 1.22 ng/mL Normal <=3.60 [facility] Comment on above: Performed By: #### HECTOR Rosario MP ####[facility] [address] [address]DrFabrice De La Cruz HSTROP 5.0 pg/mL Normal 4.0-76.1 [facility] Comment on above: Result Comment: CUT- OFF POINTS HAVE BEEN ESTABLISHED BASED ON THE FOURTH UNIVERSAL DEFINITIONS OF MYOCARDIAL INFARCTION. THE UPPER REFERENCE LIMIT (URL) OF TROPONIN, DEFINED THE 99TH PERCENTILE OF cTnI DISTRIBUTION IN A REFERENCE POPULATION, HAS BEEN CONFIRMED THE DECISION THRESHOLD FOR DC DIAGNOSIS. Performed By: #### HECTOR Rosario MP ####[facility] [address] [address]DrFabrice De La Cruz MATT 44 ng/mL Normal 16-96 [facility] Comment on above: Performed By: #### HECTOR Rosario MP ####[facility] [address] [address]Dr. Silvia De La Cruz CBC AUTO DIFFon 03-23-2022 BASO # 0.1 103/ul Normal 0.0-0.1 [facility] Comment on above: Performed By: #### C BC #### [facility] [address] [place] [address] Dr. Silvia De La Cruz Basophils/100 WBC (Bld) 0.9 % Normal 0.2-2.0 [facility] Comment on above: Performed By: #### C BC #### [facility] [address] [address] [address] Silvia De La Cruz EO # 0.3 103/ul Normal 0.0-0.7 [facility] Comment on above: Performed By: #### C BC #### [facility] [address] [address] [address] Silvia De La Cruz Eosinophils/100 WBC (Bld) 3.9 % Normal 0.9-7.0 [facility] Comment on above: Performed By: #### C BC #### [facility] [address] [place] [address] Dr. Silvia De La Cruz Erythrocyte distribution width (RBC) [Ratio] 11.3 % Normal 11.0-15.0 [facility] Comment on above: Performed By: #### C BC #### [facility] [address] [place] [address] Dr. Silvia De La Cruz Hematocrit (Bld) [Volume fraction] 40.8 % Critically low 42.0-54.0 [facility] Comment on above: Performed By: #### C BC #### [facility] [address] [place] [address] Dr. Silvia De La Cruz Hemoglobin (Bld) [Mass/Vol] 14.1 g/dL Normal 14.0-18.0 [facility] Comment on above: Performed By: #### C BC #### [facility] [address] [place] [address] Dr. Silvia De La Cruz IG # 0.01 10e3/ul Normal 0.00-0.03 [facility] Comment on above: Performed By: #### C BC #### [facility] [address] [place] [address] Dr. Silvia De La Cruz IG % 0.1 % Normal 0.0-0.5 [facility] Comment on above: Performed By: #### C BC #### [facility] [address] [place] [address] Dr. Silvia De La Cruz LYMPH # 3.1 103/ul Normal 1.2-3.8 [facility] Comment on above: Performed By: #### C BC #### [facility] [address] [place] [address] Dr. Silvia De La Cruz Lymphocytes/100 WBC (Bld) 45.7 % Normal 20.5-60.0 [facility] Comment on above: Performed By: #### C BC #### [facility] [address] [place] [address] Dr. Silvia De La Cruz MANUAL DIFF REQ NO Normal [facility] Comment on above: Performed By: #### C BC #### [facility] [address] [address] [address] Silvia De La Cruz MCH (RBC) [Entitic mass] 31.7 pg Normal 25.9-34.0 [facility] Comment on above: Performed By: #### C BC #### [facility] [address] [address] [address] Silvia De La Cruz MCHC (RBC) [Mass/Vol] 34.6 g/dL Normal 29.9-35.2 [facility] Comment on above: Performed By: #### C BC #### [facility] [address] [address] [address] Siliva De La Cruz MCV (RBC) [Entitic vol] 91.7 fL Normal 80.0-94.0 [facility] Comment on above: Performed By: #### C BC #### [facility] [address] [place] [address] Dr. Silvia De La Cruz MONO # 0.6 103/ul Normal 0.3-0.8 [facility] Comment on above: Performed By: #### C BC #### [facility] [address] [place] [address] Dr. Silvia De La Cruz Monocytes/100 WBC (Bld) 9.6 % Normal 1.7-12.0 [facility] Comment on above: Performed By: #### C BC #### [facility] [address] [place] [address] Dr. Silvia De La Cruz NEUT # 2.7 103/ul Normal 1.4-6.5 [facility] Comment on above: Performed By: #### C BC #### [facility] [address] [place] [address] Dr. Silvia De La Cruz Neutrophils/100 WBC (Bld) 39.8 % Critically low 43.0-75.0 [facility] Comment on above: Performed By: #### C BC #### [facility] [address] [place] [address] Dr. Silvia De La Cruz Platelet mean volume (Bld) [Entitic vol] 10.8 fL Normal 9.5-13.5 [facility] Comment on above: Performed By: #### C BC #### [facility] [address] [address] [address] Silvia De La Cruz PLT 259 103/ul Normal 150-450 [facility] Comment on above: Performed By: #### C BC #### [facility] [address] [address] [address] Silvia De La Cruz RBC 4.45 106/ul Critically low 4.70-6.10 [facility] [place] Comment on above: Performed By: #### C BC #### [facility] [address] [address] [address] Silvia De La Cruz WBC 6.7 103/ul Normal 4.0-11.0 [facility] Comment on above: Performed By: #### C BC #### [facility] [address] [place] [address] Dr. Silvia De La Cruz Covid-19 PCR (CVDTB)on 02-23 SARS-CoV-2 (COVID-19) RNA DANILO+probe Ql (Unsp spec) Not detected Normal NOT DETECTED [facility] Comment on above: Result Comment: [...] for this test is supported by the [place] of [employer] and Human Service's declaration that [...] By: #### C VDTBH #### [facility] [address] [place] [address] Dr. Silvia De La Cruz INFLUENZA A AND B AGon 03-23 INFLUANEGH SEE BELOW Normal [facility] Comment on above: Result Comment: Nega tive for Flu A protein angiten. Infection due to Flu A cannot be ruled out. Flu A angiten in the sample may be below the detection limit of the test. Performed By: #### I NFLUAB #### [facility] [address] [place] [address] Dr. Silvia De La Cruz INFLUBNEG SEE BELOW Normal [facility] Comment on above: Result Comment: Nega tive for Flu B protein antigen. Infection due to Flu B cannot be ruled out. Flu B antigen in the sample may be below the detection limit of the test. Performed By: #### I NFLUAB #### [facility] [address] [place] [address] Dr. Silvia De La Cruz INFLUENZA A AG Negative Normal NEGATIVE SEE COMMENT [facility] Comment on above: Performed By: #### I NFLUAB #### [facility] [address] [place] [address] Dr. Silvia De La Cruz INFLUENZA B AG Negative Normal NEGATIVE SEE COMMENT [facility] Comment on above: Performed By: #### I NFLUAB #### [facility] [address] [place] [address] Dr. Silvia [place] INTERNAL CONTROLS Within Normal Limits Normal Wi thin Normal Limits [facility] Comment on above: Performed By: #### I NFLUAB #### [facility] [address] [place] [address] Dr. Silvia De La Cruz PROF CHEM 8 (BAS METB)on Anion gap [Moles/Vol] 10.7 mmol/L Normal [facility] Comment on above: Performed By: #### B JUNO RODRIGUEZDM ####[facility] [address] [place], [place] [address]Dr. Silvia De La Cruz Calcium [Mass/Vol] 9.1 mg/dL Normal 8.5-10.1 [facility] Comment on above: Performed By: #### B JENNIFER, JUNODM ####[facility] [address] [place], [place] [address]Dr. Silvia De La Cruz Chloride [Moles/Vol] 105 mmol/L Normal 98-107 [facility] Comment on above: Performed By: #### Sanya RODRIUGEZ, HECTOR ####[facility] [address] [place] [address]Dr. Silvia De La Cruz CO2 [Moles/Vol] 28.0 mmol/L Normal 21.0-32.0 [facility] Comment on above: Performed By: #### Sanya RODRIGUEZ, HECTOR ####[facility] [address] [place] [address]Dr. Silvia De La Cruz Creatinine [Mass/Vol] 0.98 mg/dL Normal 0.70-1.30 [facility] Comment on above: Performed By: #### HECTOR Rosario MP ####[facility] [address] [place] [address]Dr. Silvia De La Cruz EGFR-AF BAHAMIAN >60 Normal >=60 [facility] Comment on above: Performed By: #### HECTOR Rosario MP ####[facility] [address] [place] [address]Dr. Silvia De La Cruz EGFR-NON AF BAHAMIAN >60 Normal >=60 [facility] Comment on above: Performed By: #### HECTOR Rosario MP ####[facility] [address] [place], [place] [address]Dr. Silvia De La Cruz Glucose [Mass/Vol] 84 mg/dL Normal 74-106 [facility] Comment on above: Performed By: #### HECTOR Rosario MP ####[facility] [address] [place], [place] [address]Dr. Silvia De La Cruz Potassium [Moles/Vol] 3.7 mmol/L Normal 3.5-5.1 [facility] Comment on above: Performed By: #### HECTOR Rosario MP ####[facility] [address] [place], [place] [address]Dr. Silvia De La Cruz Sodium [Moles/Vol] 140 mmol/L Normal 136-145 [facility] Comment on above: Performed By: #### HECTOR Rosario MP ####[facility] [address] [place], [place] [address]Dr. Silvia De La Cruz Urea nitrogen [Mass/Vol] 14.0 mg/dL Normal 7.0-18.0 [facility] Comment on above: Performed By: #### B HECTOR RODRIGUEZ ####[facility] [address] [place], [place] [address]Zs. Silvia De La Cruz Urea nitrogen/Creatinine [Mass ratio] 14.3 mg/mg Normal [facility] Comment on above: Performed By: #### B HECTOR RODRIGUEZ ####[facility] [address] [place], [place] [address]Pc. Silvia De La Cruz Covid-19 PCR (CVDTB)on 11-25 SARS-CoV-2 (COVID-19) RNA DANILO+probe Ql (Unsp spec) Not detected Normal NOT DETECTED [facility] Comment on above: Result Comment: This test is not yet approved or cleared by the [place] FDA. When there are no FDA-approved or cleared tests available, and other criteria are met, FDA can make tests available under an emergency access mechanism called an Emergency Use Authorization (EUA). The EUA for this test is supported by the News Videotape Editor of Health and Human Service's (HHS's) declaration [...] consistent with SARS-CoV-2. Performed By: #### C VDTB #### [facility] [address] [place], [place] [address] Dr. Silvia De La Cruz Vital Signs Date Time Vital Sign Value Performing Clinician Facility 01-07-2025 13:53-0400 Body mass index (BMI) [Ratio] 31.17 kg/m2 Bharat Keating NP Work Phone: [facility] 01-07-2025 13:53-0400 Body temperature 97.59 [degF] Bharat Keating [employer]OPELLANT CHARGE LOADER Work Phone: [facility] 01-07-2025 13:53-0400 Body weight 92.99 kg Bharat Keating [employer]LLANT CHARGE LOADER Work Phone: [facility] 01-07-2025 13:53-0400 Diastolic blood pressure 66 mm[Hg] Bharat Keating [employer]OPELLANT CHARGE LOADER Work Phone: [facility] 01-07-2025 13:53-0400 Heart rate 71 /min Bharat Keating [employer]OPELLANT CHARGE LOADER Work Phone: [facility] 01-07-2025 13:53-0400 Respiratory rate 20 /min Bharat Keating [employer]LLANT CHARGE LOADER Work Phone: [facility] 01-07-2025 13:53-0400 SaO2% (BldA) [Mass fraction] 95 % Bharat Keating [employer]OPELLANT CHARGE LOADER Work Phone: [facility] 01-07-2025 13:53-0400 Systolic blood pressure 144 mm[Hg] Bharat Keating [employer]OPELLANT CHARGE LOADER Work Phone: [facility] 11-20-2024 14:28-0500 Heart rate 96 /min Vero Stern GRAIN SPOUTER Work Phone: [facility] 11-20-2024 14:28-0500 Respiratory rate 20 /min Vero Stern GRAIN SPOUTER Work Phone: [facility] 11-20-2024 14:18-0500 Body height 175.26 cm Vero Stern GRAIN SPOUTER Work Phone: [facility] 11-20-2024 14:18-0500 Body weight 90.9 kg Vero Stern GRAIN SPOUTER Work Phone: [facility] 11-20-2024 14:18-0500 Diastolic blood pressure 79 mm[Hg] Vero Stern GRAIN SPOUTER Work Phone: [facility] 11-20-2024 14:18-0500 SaO2% (BldA) [Mass fraction] 96 % Vero Stern GRAIN SPOUTER Work Phone: [facility] 11-20-2024 14:18-0500 Systolic blood pressure 129 mm[Hg] Vero Greenfieldchantellemyronwilfredo GRAIN SPOUTER Work Phone: [facility] 11-20-2024 12:45-0500 Body temperature 98.1 [degF] Vero Greenfieldgera GRAIN SPOUTER Work Phone: [facility] 10-15-2024 10:55-0500 Diastolic blood pressure 57 mm[Hg] Vero Jarred GRAIN SPOUTER Work Phone: [facility] 10-15-2024 10:55-0500 Heart rate 63 /min Vero Jarred GRAIN SPOUTER Work Phone: [facility] 10-15-2024 10:55-0500 Respiratory rate 18 /min Vero Greenfieldgera GRAIN SPOUTER Work Phone: [facility] 10-15-2024 10:55-0500 SaO2% (BldA) [Mass fraction] 96 % Vero Greenfieldgera GRAIN SPOUTER Work Phone: [facility] 10-15-2024 10:55-0500 Systolic blood pressure 129 mm[Hg] Vero Greenfieldgera GRAIN SPOUTER Work Phone: [facility] 10-15-2024 09:58-0500 Body height 175.26 cm Vero Jarred GRAIN SPOUTER Work Phone: [facility] 10-15-2024 09:58-0500 Body weight 94.34 kg Vero Jarred GRAIN SPOUTER Work Phone: [facility] 10-10-2024 09:06-0500 Body height 175.26 cm Vero Jarred GRAIN SPOUTER Work Phone: [facility] 10-10-2024 09:06-0500 Body mass index (BMI) [Ratio] 30.6 kg/m2 Vero Jarred GRAIN SPOUTER Work Phone: [facility] 10-10-2024 09:06-0500 Body temperature 98 [degF] Vero Jarred GRAIN SPOUTER Work Phone: [facility] 10-10-2024 09:06-0500 Body weight 94 kg Vero Jarred GRAIN SPOUTER Work Phone: [facility] 10-10-2024 09:06-0500 Diastolic blood pressure 64 mm[Hg] Vero Jarred GRAIN SPOUTER Work Phone: [facility] 10-10-2024 09:06-0500 Heart rate 94 /min Vero Jarred GRAIN SPOUTER Work Phone: [facility] 10-10-2024 09:06-0500 SaO2% (BldA) [Mass fraction] 95 % Veroquyen Stern GRAIN SPOUTER Work Phone: [facility] 10-10-2024 09:06-0500 Systolic blood pressure 116 mm[Hg] Vero Jarred GRAIN SPOUTER Work Phone: [facility] 10-10-2024 00:00-0500 Diastolic blood pressure 79 mm[Hg] Vero Jarred GRAIN SPOUTER Work Phone: [facility] 10-10-2024 00:00-0500 Heart rate 78 /min Vero Jarred GRAIN SPOUTER Work Phone: [facility] 10-10-2024 00:00-0500 SaO2% (BldA) [Mass fraction] 100 % Vero Stern GRAIN SPOUTER Work Phone: [facility] 10-10-2024 00:00-0500 Systolic blood pressure 131 mm[Hg] Vero Sanachewilfredo GRAIN SPOUTER Work Phone: [facility] 10-09-2024 22:42-0500 Body height 175.26 cm Vero Stern GRAIN SPOUTER Work Phone: [facility] 10-09-2024 22:42-0500 Body temperature 98 [degF] Vero tSern APRN Work Phone: [facility] 10-09-2024 22:42-0500 Body weight 90.6 kg Vero Stern APRN Work Phone: [facility] 10-09-2024 21:31-0500 Heart rate 75 /min Diana Byers MD Work Phone: [facility] 10-09-2024 21:31-0500 Respiratory rate 16 /min Diana Byers MD Work Phone: [facility] 10-09-2024 21:31-0500 SaO2% (BldA) [Mass fraction] 96 % Diana Byers MD Work Phone: [facility] 10-09-2024 19:17-0500 Body temperature 99 [degF] Diana Byers MD Work Phone: [facility] 10-09-2024 19:08-0500 Body height 175.3 cm Diana Byers MD Work Phone: [facility] 10-09-2024 19:08-0500 Body mass index (BMI) [Ratio] 30.75 kg/m2 Diana Byers MD Work Phone: [facility] 10-09-2024 19:08-0500 Body weight 94.44 kg Diana Byers MD Work Phone: [facility] 10-09-2024 19:08-0500 Diastolic blood pressure 84 mm[Hg] Diana Byers MD Work Phone: [facility] 10-09-2024 19:08-0500 Systolic blood pressure 134 mm[Hg] Diana Byers MD Work Phone: [facility] 10-03-2024 19:17-0500 Body height 175.26 cm Vero Stern APRN Work Phone: [facility] 10-03-2024 19:17-0500 Body temperature 97.4 [degF] Vero Barrioswilfredo GRAIN SPOUTER Work Phone: [facility] 10-03-2024 19:17-0500 Body weight 92.98 kg Vero Stern GRAIN SPOUTER Work Phone: [facility] 10-03-2024 19:17-0500 Diastolic blood pressure 84 mm[Hg] Vero Barrioswilfredo GRAIN SPOUTER Work Phone: [facility] 10-03-2024 19:17-0500 Heart rate 80 /min Vero Greenfieldchantellemyronwilfredo GRAIN SPOUTER Work Phone: [facility] 10-03-2024 19:17-0500 Respiratory rate 18 /min Vero Greenfieldchantellemyronwilfredo GRAIN SPOUTER Work Phone: [facility] 10-03-2024 19:17-0500 SaO2% (BldA) [Mass fraction] 95 % Vero Barrioswilfredo GRAIN SPOUTER Work Phone: [facility] 10-03-2024 19:17-0500 Systolic blood pressure 147 mm[Hg] Vero Barrioswilfredo GRAIN SPOUTER Work Phone: [facility] 09-26-2024 14:21-0500 Body height 175.26 cm Vero Greenfieldchantellemyronwilfredo GRAIN SPOUTER Work Phone: [facility] 09-26-2024 14:21-0500 Body mass index (BMI) [Ratio] 30.9 kg/m2 Vero Greenfieldchantellemyronwilfredo GRAIN SPOUTER Work Phone: [facility] 09-26-2024 14:21-0500 Body weight 95 kg Vero Greenfieldchantellemyronwilfredo GRAIN SPOUTER Work Phone: [facility] 09-21-2024 11:18-0500 Body height 175.26 cm Vero Greenfieldchantellemyronwilfredo GRAIN SPOUTER Work Phone: [facility] 09-21-2024 11:18-0500 Body mass index (BMI) [Ratio] 31 kg/m2 Vero Stern GRAIN SPOUTER Work Phone: [facility] 09-21-2024 11:18-0500 Body temperature 97.3 [degF] Vero Stern GRAIN SPOUTER Work Phone: [facility] 09-21-2024 11:18-0500 Body weight 95.25 kg Vero Stern GRAIN SPOUTER Work Phone: [facility] 09-21-2024 11:18-0500 Heart rate 81 /min Vero Stern GRAIN SPOUTER Work Phone: [facility] 09-21-2024 11:18-0500 SaO2% (BldA) [Mass fraction] 94 % Vero Stern GRAIN SPOUTER Work Phone: [facility] 09-17-2024 14:40-0500 Body height 175.26 cm Vero Stern GRAIN SPOUTER Work Phone: [facility] 09-17-2024 14:40-0500 Body mass index (BMI) [Ratio] 30.4 kg/m2 Vero Stern GRAIN SPOUTER Work Phone: [facility] 09-17-2024 14:40-0500 Body temperature 96.7 [degF] Vero Stern GRAIN SPOUTER Work Phone: [facility] 09-17-2024 14:40-0500 Body weight 93.66 kg Vero Stern GRAIN SPOUTER Work Phone: [facility] 09-17-2024 14:40-0500 Diastolic blood pressure 80 mm[Hg] Vero Barrioswilfredo GRAIN SPOUTER Work Phone: [facility] 09-17-2024 14:40-0500 Heart rate 78 /min Vero Greenfieldchantellemyronwilfredo GRAIN SPOUTER Work Phone: [facility] 09-17-2024 14:40-0500 SaO2% (BldA) [Mass fraction] 98 % Vero Jarred GARCÍA Work Phone: [facility] 09-17-2024 14:40-0500 Systolic blood pressure 122 mm[Hg] Vero Jarred GARCÍA Work Phone: [facility] 09-11-2024 16:38-0500 Body height 175.3 cm Valentina Llanos MD Work Phone: [facility] [employer] 09-11-2024 16:38-0500 Body mass index (BMI) [Ratio] 30.39 kg/m2 Valentina Llanos MD Work Phone: [facility] 09-11-2024 16:38-0500 Body weight 93.35 kg Valentina Llanos MD Work Phone: [facility] 09-11-2024 16:38-0500 Diastolic blood pressure 79 mm[Hg] Valentina Llanos MD Work Phone: [facility] 09-11-2024 16:38-0500 Heart rate 73 /min Valentina Llanos MD Work Phone: [facility] 09-11-2024 16:38-0500 Respiratory rate 16 /min Valentina Llanos MD Work Phone: [facility] 09-11-2024 16:38-0500 SaO2% (BldA) [Mass fraction] 95 % Valentina Llanos MD Work Phone: [facility] 09-11-2024 16:38-0500 Systolic blood pressure 122 mm[Hg] Valentina Llanos MD Work Phone: [facility] [employer] 06-05-2024 13:54-0400 Body height 175.26 cm [facility] 06-05-2024 13:54-0400 Body mass index (BMI) [Ratio] 28.6 kg/m2 [facility] 06-05-2024 13:54-0400 Body weight 87.99 kg [facility] 06-05-2024 13:54-0400 Diastolic blood pressure 76 mm[Hg] [facility] 06-05-2024 13:54-0400 Heart rate 83 /min [facility] 06-05-2024 13:54-0400 SaO2% (BldA) [Mass fraction] 96 % [facility] 06-05-2024 13:54-0400 Systolic blood pressure 116 mm[Hg] [facility] 04-11-2024 08:59-0400 Body height 175.26 cm GRAIN SPOUTEREnoc Stern Work Phone: [facility] 04-11-2024 08:59-0400 Body mass index (BMI) [Ratio] 29.8 kg/m2 GRAIN SPOUTEREnoc Stern Work Phone: [facility] 04-11-2024 08:59-0400 Body weight 91.62 kg GRAIN SPOUTEREnoc Stern Work Phone: [facility] 04-11-2024 08:59-0400 Diastolic blood pressure 84 mm[Hg] GRAIN SPOUTEREnoc Stern Work Phone: [facility] 04-11-2024 08:59-0400 Heart rate 69 /min GRAIN SPOUTEREnoc Sanachewilfredo Work Phone: [facility] 04-11-2024 08:59-0400 SaO2% (BldA) [Mass fraction] 98 % RAQUEL Stern Work Phone: [facility] 04-11-2024 08:59-0400 Systolic blood pressure 120 mm[Hg] RAQUEL Sanachewilfredo Work Phone: [facility] 03-23-2024 11:28-0400 Body height 175.26 cm RAQUEL Stern Work Phone: [facility] 03-23-2024 11:28-0400 Body mass index (BMI) [Ratio] 29.8 kg/m2 GRAIN SPOUTER Vero Greenfieldrbacher Work Phone: [facility] 03-23-2024 11:28-0400 Body weight 91.62 kg GRAIN SPOUTEREnoc Sanacher Work Phone: [facility] 03-23-2024 11:28-0400 Diastolic blood pressure 80 mm[Hg] GRAIN SPOUTER Vero Sanacher Work Phone: [facility] 03-23-2024 11:28-0400 Heart rate 85 /min GRAIN SPOUTER Vero Ginrbacher Work Phone: [facility] 03-23-2024 11:28-0400 SaO2% (BldA) [Mass fraction] 98 % GRAIN SPOUTER Vero Greenfieldrbacher Work Phone: [facility] 03-23-2024 11:28-0400 Systolic blood pressure 116 mm[Hg] GRAIN SPOUTER Vero Ginchantelleacher Work Phone: [facility] 01-19-2024 13:01-0400 Body height 175.26 cm GRAIN SPOUTER Vero Sanacher Work Phone: [facility] 01-19-2024 13:01-0400 Body mass index (BMI) [Ratio] 30.5 kg/m2 GRAIN SPOUTEREnoc Sanacher Work Phone: [facility] 01-19-2024 13:01-0400 Body weight 93.89 kg GRAIN SPOUTER Vero Sanacher Work Phone: [facility] 01-19-2024 13:01-0400 Diastolic blood pressure 80 mm[Hg] GRAIN SPOUTER Vero Greenfieldrbacher Work Phone: [facility] 01-19-2024 13:01-0400 Heart rate 91 /min GRAIN SPOUTER Vero Greenfieldrbacher Work Phone: [facility] 01-19-2024 13:01-0400 SaO2% (BldA) [Mass fraction] 96 % GRAIN SPOUTER Vero Ginrbacher Work Phone: [facility] 01-19-2024 13:01-0400 Systolic blood pressure 126 mm[Hg] GRAIN SPOUTER Vero Ginrbacher Work Phone: [facility] 01-15-2024 22:15-0400 Diastolic blood pressure 75 mm[Hg] GRAIN SPOUTER Vero Menaacher Work Phone: [facility] 01-15-2024 22:15-0400 Heart rate 86 /min GRAIN SPOUTER Vero Ginrbacher Work Phone: [facility] 01-15-2024 22:15-0400 Respiratory rate 19 /min GRAIN SPOUTEREnoc Pham Ginrbacher Work Phone: [facility] 01-15-2024 22:15-0400 SaO2% (BldA) [Mass fraction] 97 % GRAIN SPOUTER Vero Menaacher Work Phone: [facility] 01-15-2024 22:15-0400 Systolic blood pressure 129 mm[Hg] GRAIN SPOUTER Vero Ginchantelleacher Work Phone: [facility] 01-15-2024 19:45-0400 Body height 175.26 cm GRAIN SPOUTER Vero Ginchantelleacher Work Phone: [facility] 01-15-2024 19:45-0400 Body temperature 97.9 [degF] GRAIN SPOUTEREnoc QuezadaVero Menaacher Work Phone: [facility] 01-15-2024 19:45-0400 Body weight 94.5 kg GRAIN SPOUTEREnoc QuezadaVero Menaacher Work Phone: [facility] 01-13-2024 11:38-0400 Body height 175.26 cm [facility] 01-13-2024 11:38-0400 Body mass index (BMI) [Ratio] 30.1 kg/m2 [facility] 01-13-2024 11:38-0400 Body temperature 98.9 [degF] [facility] 01-13-2024 11:38-0400 Body weight 92.53 kg [facility] 01-13-2024 11:38-0400 Diastolic blood pressure 66 mm[Hg] [facility] 01-13-2024 11:38-0400 Heart rate 68 /min [facility] 01-13-2024 11:38-0400 Respiratory rate 18 /min [facility] 01-13-2024 11:38-0400 SaO2% (BldA) [Mass fraction] 97 % [facility] 01-13-2024 11:38-0400 Systolic blood pressure 116 mm[Hg] [facility] 12-07-2023 15:57-0500 Body height 175.26 cm [facility] 12-07-2023 15:57-0500 Body mass index (BMI) [Ratio] 30.2 kg/m2 [facility] 12-07-2023 15:57-0500 Body weight 92.98 kg [facility] 12-07-2023 15:57-0500 Diastolic blood pressure 74 mm[Hg] [facility] 12-07-2023 15:57-0500 Heart rate 80 /min [facility] 12-07-2023 15:57-0500 SaO2% (BldA) [Mass fraction] 98 % [facility] 12-07-2023 15:57-0500 Systolic blood pressure 124 mm[Hg] [facility] 11-23-2023 13:00-0500 Body height 175.26 cm Vero Stern Other [facility] 11-23-2023 13:00-0500 Body mass index (BMI) [Ratio] 30.57 kg/m2 Vero Stern Other [employer] Other 11-23-2023 13:00-0500 Body temperature 98.2 [degF] Vero Stern Other [employer] Other 11-23-2023 13:00-0500 Body weight 93.9 kg Vero Stern Other [employer] Other 11-23-2023 13:00-0500 Body weight 93.89 kg [facility] 11-23-2023 13:00-0500 Diastolic blood pressure 72 mm[Hg] Vero Stern Other [facility] 11-23-2023 13:00-0500 SaO2% (BldA) [Mass fraction] 96 % Vero Stern Other [facility] Other 11-23-2023 13:00-0500 Systolic blood pressure 110 mm[Hg] Vero Stern Other [facility] 11-21-2023 14:40-0500 Body height 175.26 cm Pura Lewismond Other [facility] 11-21-2023 14:40-0500 Body mass index (BMI) [Ratio] 30.12 kg/m2 Pura Eliza Other [employer] Other 11-21-2023 14:40-0500 Body temperature 101.9 [degF] Pura Eliza Other [employer] Other 11-21-2023 14:40-0500 Body weight 92.53 kg Pura Lewismond Other [facility] 11-21-2023 14:40-0500 Respiratory rate 18 /min Pura Eliza Other [employer] Other 11-21-2023 14:40-0500 SaO2% (BldA) [Mass fraction] 96 % Pura Eliza Other [employer] Other 11-04-2023 11:00-0500 Body height 175.26 cm Joelle Carlos Other [facility] 11-04-2023 11:00-0500 Body mass index (BMI) [Ratio] 29.5 kg/m2 Joelle Carlos Other [facility] Other 11-04-2023 11:00-0500 Body weight 90.63 kg Joelle Carlos Other [facility] Other 11-04-2023 11:00-0500 Body weight 90.62 kg [facility] 11-04-2023 11:00-0500 Diastolic blood pressure 86 mm[Hg] Joelleana Gonzalez Other [facility] 11-04-2023 11:00-0500 SaO2% (BldA) [Mass fraction] 98 % Joelle Carlos Other [facility] Other 11-04-2023 11:00-0500 Systolic blood pressure 128 mm[Hg] Joelleana Gonzalez Other [facility] 09-27-2023 11:19-0500 Blood Pressure Location VERO MILTONRY [facility] 09-27-2023 11:19-0500 Diastolic blood pressure 87 mm[Hg] VERO UNRULY [facility] 09-27-2023 11:19-0500 Heart rate 65 /min VERO UNRULY [facility] 09-27-2023 11:19-0500 Respiratory rate 16 /min VERO UNRULY [facility] 09-27-2023 11:19-0500 Systolic blood pressure 120 mm[Hg] VERO MOSS [facility] 09-19-2023 08:30-0500 Body height 175.26 cm Vero Stern Other [facility] 09-19-2023 08:30-0500 Body mass index (BMI) [Ratio] 29.53 kg/m2 Vero Stern Other [employer] Other 09-19-2023 08:30-0500 Body weight 90.72 kg Vero Stern Other [employer] Other 09-19-2023 08:30-0500 Body weight 90.71 kg [facility] 09-19-2023 08:30-0500 Diastolic blood pressure 82 mm[Hg] Vero Stern Other [facility] 09-19-2023 08:30-0500 SaO2% (BldA) [Mass fraction] 98 % Vero Stern Other [facility] Other 09-19-2023 08:30-0500 Systolic blood pressure 122 mm[Hg] Vero Stern Other [facility] 09-10-2023 11:50-0500 Body height 175.26 cm [facility] 09-10-2023 11:50-0500 Body weight 88.54 kg [facility] 08-08-2023 17:26-0400 Diastolic blood pressure 84 mm[Hg] PHYSICIAN NO [facility] 08-08-2023 17:26-0400 Heart rate 52 /min PHYSICIAN NO [facility] 08-08-2023 17:26-0400 Respiratory rate 16 /min PHYSICIAN NO [facility] 08-08-2023 17:26-0400 SaO2% (BldA) [Mass fraction] 98 % PHYSICIAN NO [facility] 08-08-2023 17:26-0400 Systolic blood pressure 122 mm[Hg] PHYSICIAN NO [facility] 08-08-2023 15:31-0400 Body height 175.26 cm PHYSICIAN NO [facility] 08-08-2023 15:31-0400 Body mass index (BMI) [Ratio] 28 kg/m2 PHYSICIAN NO [facility] 08-08-2023 15:31-0400 Body weight 86.18 kg PHYSICIAN NO [facility] 08-08-2023 13:55-0400 Body temperature 98.1 [degF] PHYSICIAN NO [facility] 07-25-2023 19:10-0400 Diastolic blood pressure 90 mm[Hg] PHYSICIAN NO [facility] 07-25-2023 19:10-0400 Heart rate 61 /min PHYSICIAN NO [facility] 07-25-2023 19:10-0400 Respiratory rate 16 /min PHYSICIAN NO [facility] 07-25-2023 19:10-0400 SaO2% (BldA) [Mass fraction] 96 % PHYSICIAN NO [facility] 07-25-2023 19:10-0400 Systolic blood pressure 127 mm[Hg] PHYSICIAN NO [facility] 07-25-2023 15:19-0400 Body height 175.26 cm PHYSICIAN NO [facility] 07-25-2023 15:19-0400 Body mass index (BMI) [Ratio] 28 kg/m2 PHYSICIAN NO [facility] 07-25-2023 15:19-0400 Body weight 86.18 kg PHYSICIAN NO [facility] 07-25-2023 15:08-0400 Body temperature 98.2 [degF] PHYSICIAN NO [facility] 07-25-2023 09:06-0400 Blood Pressure Location Mina MCCLOUD [facility] 07-25-2023 09:06-0400 Diastolic blood pressure 82 mm[Hg] Mina MCCLOUD [facility] 07-25-2023 09:06-0400 Heart rate 80 /min Mina MCCLOUD [facility] 07-25-2023 09:06-0400 Systolic blood pressure 134 mm[Hg] Mina MCCLOUD [facility] 07-19-2023 20:50-0400 Diastolic blood pressure 93 mm[Hg] PHYSICIAN NO [facility] 07-19-2023 20:50-0400 Heart rate 66 /min PHYSICIAN NO [facility] 07-19-2023 20:50-0400 Respiratory rate 20 /min PHYSICIAN NO [facility] 07-19-2023 20:50-0400 SaO2% (BldA) [Mass fraction] 99 % PHYSICIAN NO [facility] 07-19-2023 20:50-0400 Systolic blood pressure 138 mm[Hg] PHYSICIAN NO [facility] 07-19-2023 18:37-0400 Body height 175.26 cm PHYSICIAN NO [facility] 07-19-2023 18:37-0400 Body temperature 97.5 [degF] PHYSICIAN NO [facility] 07-19-2023 18:37-0400 Body weight 86.18 kg PHYSICIAN NO [facility] 07-07-2023 13:00-0400 Body height 175.26 cm La Nena Travis Other [employer] [facility] Other 07-07-2023 13:00-0400 Body mass index (BMI) [Ratio] 28.26 kg/m2 La Nena Travis Other [employer] Other 07-07-2023 13:00-0400 Body temperature 100.1 [degF] La Nena Travis Other [employer] Other 07-07-2023 13:00-0400 Body weight 86.82 kg La Nena Travis Other [employer] Other 07-07-2023 13:00-0400 Diastolic blood pressure 86 mm[Hg] La Nena Travis Other [employer] Other 07-07-2023 13:00-0400 Respiratory rate 18 /min La Nena Travis Other [employer] Other 07-07-2023 13:00-0400 SaO2% (BldA) [Mass fraction] 98 % La Nena Travis Other [employer] Other 07-07-2023 13:00-0400 Systolic blood pressure 128 mm[Hg] La Nena Travis Other [employer] Other 05-23-2023 15:50-0400 Body height 175.26 cm Claire Rothman Other [employer] Other 05-23-2023 15:50-0400 Body mass index (BMI) [Ratio] 27.76 kg/m2 Claire Rothman Other [employer] Other 05-23-2023 15:50-0400 Body temperature 99 [degF] Claire Rothman Other [employer] Other 05-23-2023 15:50-0400 Body weight 85.28 kg Claire Rothman Other [employer] Other 05-23-2023 15:50-0400 Diastolic blood pressure 82 mm[Hg] Claire Rothman Other [employer] Other 05-23-2023 15:50-0400 Respiratory rate 18 /min Claire Rothman Other [employer] Other 05-23-2023 15:50-0400 SaO2% (BldA) [Mass fraction] 99 % Claire Rothman Other [employer] Other 05-23-2023 15:50-0400 Systolic blood pressure 121 mm[Hg] Claire Rothman Other [employer] Other 08-21-2022 04:22-0400 Body height 172.7 cm Reece Briscoe MD Work Phone: [employer] 08-21-2022 04:22-0400 Body mass index (BMI) [Ratio] 28.89 kg/m2 Reece Briscoe MD Work Phone: [employer] 08-21-2022 04:22-0400 Body temperature 98.6 [degF] Reece Briscoe MD Work Phone: [employer] 08-21-2022 04:22-0400 Body weight 86.18 kg Reece Briscoe MD Work Phone: [employer] 08-21-2022 04:22-0400 Diastolic blood pressure 79 mm[Hg] Reece Briscoe MD Work Phone: [employer] 08-21-2022 04:22-0400 Heart rate 128 /min Reece Briscoe MD Work Phone: [employer] 08-21-2022 04:22-0400 Respiratory rate 18 /min Reece Briscoe MD Work Phone: [employer] 08-21-2022 04:22-0400 SaO2% (BldA) [Mass fraction] 96 % Reece Briscoe MD Work Phone: [employer] 08-21-2022 04:22-0400 Systolic blood pressure 154 mm[Hg] Reece Briscoe MD Work Phone: [facility] 08-02-2022 15:01-0400 Body temperature 98.71 [degF] Kasia Urbina GRAIN SPOUTER-SENIOR COURTROOM CLERK Work Phone: [facility] [employer] 08-02-2022 15:01-0400 Diastolic blood pressure 92 mm[Hg] Kasia Urbina GRAIN SPOUTER-SENIOR COURTROOM CLERK Work Phone: [facility] [employer] 08-02-2022 15:01-0400 Heart rate 91 /min Kasia Urbina GRAIN SPOUTER-SENIOR COURTROOM CLERK Work Phone: [facility] [employer] 08-02-2022 15:01-0400 Respiratory rate 18 /min Kasia Urbina GRAIN SPOUTER-SENIOR COURTROOM CLERK Work Phone: [facility] [employer] 08-02-2022 15:01-0400 SaO2% (BldA) [Mass fraction] 99 % Kasia Urbina GRAIN SPOUTER-SENIOR COURTROOM CLERK Work Phone: [facility] [employer] 08-02-2022 15:01-0400 Systolic blood pressure 157 mm[Hg] Kasia Urbina GRAIN SPOUTER-SENIOR COURTROOM CLERK Work Phone: [facility] Encounters Encounter Date Encounter Type Care Provider Facility Start: 01-07-2025 End: 01-07-2025 Office outpatient visit 25 minutes Bharat Keating PROPELLANT CHARGE LOADER Work Phone: [facility] Comment on above: Influenza A (Primary Dx); Pharyngitis, unspecified etiology; Cough, unspecified type Start: 01-07-2025 End: 01-07-2025 ambulatory BHARAT KEATING Not Available Start: 11-20-2024 End: 11-20-2024 Emergency department patient visit Vero Stern APRN Work Phone: [facility] Work Phone: Start: 10-15-2024 Non-patient / Non-visit Yang Stern APRN Work Phone: [facility] Work Phone: Start: 10-15-2024 End: 10-15-2024 Admission to same day surgery center Vero Jarred TEJADAN Work Phone: [facility] Work Phone: Start: 10-15-2024 End: 10-15-2024 ambulatory Philip Gibson Facility:[facility] Start: 10-10-2024 End: 10-10-2024 Patient encounter procedure Vero Jarred TEJADAN Work Phone: [facility] Work Phone: Start: 10-09-2024 End: 10-10-2024 Emergency department patient visit Diana Byers MD Work Phone: [facility] Comment on above: Chest pain, unspecif ied type (Primary Dx); Moderate persistent asthma with exacerbation Start: 10-04-2024 Non-patient / Non-visit Yang Stern APRN Work Phone: [facility] Work Phone: Start: 10-03-2024 End: 10-03-2024 Emergency department patient visit Vero Jarred GARCÍA Work Phone: [facility] Work Phone: Start: 09-26-2024 End: 09-26-2024 ambulatory Tao Kwong Facility:[facility] Start: 09-26-2024 End: 09-26-2024 Patient encounter procedure Vero Stern APRN Work Phone: [facility] [place] Work Phone: Start: 09-21-2024 End: 09-21-2024 Patient encounter procedure Vero Stern APRN Work Phone: [facility] Work Phone: Start: 09-17-2024 End: 09-17-2024 Patient encounter procedure Vero Stern APRN Work Phone: [facility] Work Phone: Start: 09-12-2024 End: 09-12-2024 ambulatory Umm Ratliff RN NURSE MOLD SHIFTER Comment on above: Scheduling Start: 09-12-2024 Non-patient / Non-visit Yang Stern APRN Work Phone: [facility] Work Phone: Start: 09-11-2024 End: 09-11-2024 Emergency department patient visit Valentina Llanos MD Work Phone: [facility] ED Comment on above: Shortness of breath (Primary Dx) Start: 09-11-2024 End: 09-11-2024 ambulatory Sweetie Davidson RN NURSE MOLD SHIFTER Start: 09-11-2024 End: 09-11-2024 Patient encounter procedure Sweetie Davidson RN NURSE MOLD SHIFTER Comment on above: Asthma (Referral to pulmonary) Start: 07-16-2024 End: 07-16-2024 Refill Anna Ford MD Work Phone: [facility] Comment on above: LPRD (laryngopharyng eal reflux disease) Start: 06-05-2024 End: 06-05-2024 ambulatory [facility] Work Phone: Start: 06-05-2024 End: 06-05-2024 Patient encounter procedure [facility] Work Phone: Start: 05-28-2024 End: 05-28-2024 ambulatory ANNA FORD Not Available Start: 04-11-2024 End: 04-11-2024 ambulatory RAQUEL Stern Work Phone: [facility] Work Phone: Start: 04-11-2024 End: 04-11-2024 Patient encounter procedure RAQUEL Stern Work Phone: [facility] Work Phone: Start: 04-04-2024 End: 04-04-2024 Subsequent hospital visit by physician Ольга [id number] Mri1 [facility] Comment on above: Other hypertrophic c ardiomyopathy (Multi) Start: 04-04-2024 End: 04-04-2024 ambulatory [facility] Start: 03-29-2024 End: 03-29-2024 ambulatory ANNA FORD Not Available Start: 03-23-2024 End: 03-23-2024 ambulatory RAQUEL Stern Work Phone: [facility] Work Phone: Start: 03-23-2024 End: 03-23-2024 Patient encounter procedure RAQUEL Stern Work Phone: [facility] Work Phone: Start: 03-06-2024 Non-patient / Non-visit RAQUEL Stern Work Phone: [facility] Work Phone: Start: 02-14-2024 End: 02-15-2024 ambulatory Mina MCCLOUD Facility:[facility] Start: 02-14-2024 End: 02-14-2024 Patient encounter procedure Mina MCCLOUD [facility] Start: 02-08-2024 End: 02-08-2024 ambulatory RAQUEL Stern Work Phone: [facility] Work Phone: Start: 02-08-2024 End: 02-08-2024 Patient encounter procedure RAQUEL Stern Work Phone: [facility] Work Phone: Start: 01-19-2024 End: 01-19-2024 ambulatory GRAIN SPOUTEREnoc Pham Jarred Work Phone: [facility] Work Phone: Start: 01-19-2024 End: 01-19-2024 Patient encounter procedure GRAIN SPOUTEREnoc Pham Jarred Work Phone: [facility] Work Phone: Start: 01-18-2024 Non-patient / Non-visit GRAIN SPOUTER Alexa velásquezflavia Stern Work Phone: [facility] Work Phone: Start: 01-16-2024 End: 01-16-2024 ambulatory GRAIN SPOUTEREnoc Pham Jarred Work Phone: [facility] Work Phone: Start: 01-16-2024 End: 01-16-2024 Patient encounter procedure RAQUEL Pham Jarred Work Phone: [facility] Work Phone: Start: 01-15-2024 End: 01-15-2024 Emergency department patient visit GRAIN SPOUTEREnoc Pham Jarred Work Phone: [facility] Work Phone: Start: 01-13-2024 End: 01-13-2024 ambulatory [facility] Work Phone: Start: 01-13-2024 End: 01-13-2024 Patient encounter procedure [facility] Work Phone: Start: 12-07-2023 End: 12-07-2023 ambulatory [facility] Work Phone: Start: 12-07-2023 End: 12-07-2023 Patient encounter procedure [facility] Work Phone: Start: 11-23-2023 End: 11-23-2023 ambulatory Vero Stern Other [employer] Other Start: 11-23-2023 Office outpatient vi sit 15 minutes Vero Stern [facility] Start: 11-23-2023 End: 11-23-2023 Patient encounter procedure [facility]- Start: 11-21-2023 End: 11-21-2023 ambulatory Pura Kay Other [employer] Other Start: 11-21-2023 Office outpatient vi sit 15 minutes Pura Kay [facility] Start: 11-21-2023 Telephone encounter Vero Fredi her [facility] Start: 11-21-2023 End: 11-21-2023 Patient encounter procedure [facility]- Start: 11-07-2023 End: 11-07-2023 ambulatory Vero Stern Other [employer] Other Start: 11-07-2023 Telephone encounter Vero Fredi her [facility] Start: 11-04-2023 End: 11-04-2023 ambulatory Joelle Gonzalez Other [employer] Other Start: 11-04-2023 Office outpatient ne w 45 minutes Joelle Carlos [facility] Start: 11-04-2023 End: 11-04-2023 Patient encounter procedure [facility] Work Phone: Start: 10-31-2023 End: 10-31-2023 ambulatory Vero Stern Other [employer] Other Start: 10-31-2023 Telephone encounter Vero Fredi her [facility] Start: 10-18-2023 End: 10-18-2023 ambulatory Vero Stern Other [employer] Other Start: 10-18-2023 Telephone encounter Vero Fredi [facility] Start: 09-27-2023 End: 09-28-2023 ambulatory VERO MILTONRY Facility:[facility] Start: 09-27-2023 End: 09-27-2023 Patient encounter procedure VERO MILTONRY [facility] [place] Start: 09-19-2023 End: 09-19-2023 ambulatory Vero Jarred Other [employer] Other Start: 09-19-2023 Office outpatient ne w 30 minutes Vero Stern [facility] Start: 09-19-2023 End: 09-19-2023 Patient encounter procedure [facility] Work Phone: Start: 09-10-2023 End: 09-10-2023 Patient encounter procedure [facility] Work Phone: Start: 08-12-2023 End: 08-13-2023 ambulatory Mina MCCLOUD Facility:[facility] Start: 08-12-2023 End: 08-12-2023 Patient encounter procedure Mina MCCLOUD [facility] Start: 08-08-2023 End: 08-08-2023 Admission to same day surgery center PHYSICIAN NO [facility] [place] Start: 08-08-2023 End: 08-09-2023 ambulatory PHYSICIAN NO [facility] Work Phone: Start: 07-25-2023 End: 07-25-2023 Admission to same day surgery center PHYSICIAN NO [facility] [place] Start: 07-25-2023 End: 07-25-2023 ambulatory PHYSICIAN NO [facility] Work Phone: Start: 07-25-2023 End: 07-26-2023 ambulatory Mina MCCLOUD Facility:[id number] Start: 07-25-2023 End: 07-26-2023 ambulatory Mina MCCLOUD Facility:[facility] Start: 07-25-2023 End: 07-25-2023 Patient encounter procedure Mina MCCLOUD [facility] Start: 07-25-2023 End: 07-25-2023 ambulatory PHYSICIAN NO [facility] Work Phone: Start: 07-25-2023 End: 07-25-2023 Patient encounter procedure PHYSICIAN NO [facility] [place] Work Phone: Start: 07-19-2023 End: 07-19-2023 Emergency department patient visit PHYSICIAN NO [facility] Work Phone: Start: 07-07-2023 End: 07-07-2023 ambulatory La Nena Travis Other [employer] Other Start: 07-07-2023 Office outpatient vi sit 25 minutes La Nena Travis [facility] Start: 05-23-2023 End: 05-23-2023 ambulatory Claire Rothman Other [employer] Other Start: 05-23-2023 Office outpatient vi sit 15 minutes Claire Rothman [facility] Start: 11-04-2022 End: 11-04-2022 ambulatory BEBETO PEREZ Facility: Start: 08-21-2022 End: 08-21-2022 Emergency department patient visit REECE BRISCOE [facility] Start: 08-21-2022 End: 08-21-2022 Emergency department patient visit Reece Briscoe MD Work Phone: [facility] Comment on above: Accidental drug over dose, initial encounter (Primary Dx) Start: 08-02-2022 End: 08-02-2022 Office outpatient visit 15 minutes Kasia Urbina APRN-SENIOR COURTROOM CLERK Work Phone: [facility] [place] Comment on above: Viral infection, uns pecified (Primary Dx); Screening for STD (sexually transmitted disease); Anxiety about health Start: 03-23-2022 End: 03-23-2022 ambulatory BEBETO ANA Facility:[facility] Start: 12-22-2021 End: 12-22-2021 ambulatory Ratna ARAMBULA Work Phone: [facility] Start: 12-22-2021 End: 12-22-2021 Patient encounter procedure Ratna Ye HERNANDEZW Work Phone: Psychiatry Comment on above: APPOINTMENT CANCELLE D (Primary Dx) Start: 12-17-2021 End: 12-17-2021 ambulatory [facility] Facility:[facility] Start: 12-01-2021 End: 12-02-2021 ambulatory [facility] Facility: Procedures Date Procedure Procedure Detail Performing Clinician Start: 01-07-2025 Iadna streptococcus group a amplified probe tq Mike Causey DO Work Phone: Start: 01-07-2025 STATUS COVID-19/FLU Mike Causey DO Work Phone: Start: 11-20-2024 Computed tomography of abdomen and pelvis with contrast Vero Stern APRN Work Phone: Start: 11-20-2024 CT angiography of thorax Vero Stern APRN Work Phone: Start: 11-20-2024 Plain chest X-ray Vero Stern APRN Work Phone: Start: 10-15-2024 Esophagogastroduodenoscopy Vero Stern APRN Work Phone: Start: 10-09-2024 Assay of troponin quantitative Diana Neely MD Work Phone: Start: 10-09-2024 Radiologic exam chest single view Diana Byers MD Work Phone: Start: 10-09-2024 Comprehensive metabolic panel Diana rosario MD Work Phone: Start: 10-09-2024 Ecg routine ecg w/least 12 lds w/i&r Diana Byers MD Work Phone: Start: 10-03-2024 Plain chest X-ray Vero Jarred GRAIN SPOUTER Work Phone: Start: 10-03-2024 Respiratory Panel (PCR) Vero Stern GRAIN SPOUTER Work Phone: Start: 09-11-2024 Ecg routine ecg w/least 12 lds w/i&r Valentina Llanos MD Work Phone: Start: 09-11-2024 COVID-19, RAPID Valentina Llanos MD Work Phone: Start: 09-11-2024 Basic metabolic panel calcium total Valentina Llanos MD Work Phone: Start: 01-15-2024 Plain chest X-ray GRAIN SPOUTER Vero Stern Work Phone: Start: 08-08-2023 Abdomen endoscopy PHYSICIAN NO FAMILY Start: 08-08-2023 Diagnostic radiography of abdomen PHYSIC [place] NO FAMILY Start: 08-08-2023 Cystoscopic laser lithotripsy of ureteric calculus VERO MOSS Start: 07-25-2023 Abdomen endoscopy PHYSICIAN NO FAMILY Start: 07-25-2023 Cystoscopy PHYSICIAN NO FAMILY Start: 07-25-2023 Diagnostic radiography of abdomen PHYSIC [place] NO FAMILY Start: 07-25-2023 Diagnostic radiography of abdomen PHYSIC [place]OL[place] NO FAMILY Start: 07-25-2023 Cystoscopic insertion of ureteric stent VERO MOSS Start: 07-19-2023 CT of abdomen and pelvis without contrast PHYSICIAN NO FAMILY Start: 08-21-2022 Drug tst prsmv instrmnt chem analyzers pr date Reece Briscoe MD Work Phone: Start: 08-02-2022 POC COVID-FLU HERNAN Kasia N. Walker GRAIN SPOUTER-SENIOR COURTROOM CLERK Work Phone: Start: 12-21-2021 Adult depression screening assessment Ratna ARAMBULA Work Phone: Start: 06-22-2021 H/O: surgery S/P nasal septoplasty Anna Ford MD Work Phone: Start: 06-22-2021 History of tonsillectomy S/P tonsillectomy Anna Go Work Phone: History of hernia repair Gre dashawn MCCLOUD Tonsillectomy Mina MCCLOUD Plan of Treatment Date Care Activity Detail Author Start: 2039 Zoster Vaccines (1 of 2) Zoste r Vaccines (1 of 2) [facility] Start: 10-15-2024 [facility] Start: 06-24-2024 COVID-19 Vaccine ( season) COVID-19 Vaccine ( season) [facility] Start: 06-24-2024 Covid-19 Vaccine ( season) Covid-19 Vaccine ( season) [facility] Start: 06-24-2024 Influenza vaccination [facility] Start: 05-24-2024 Influenza vaccination Flu vaccine (# 1) [facility] Start: 04-11-2024 Patient referral [facility] Work Phone: Start: 01-15-2024 Plain chest X-ray XR chest 2V* [facility] Start: 01-15-2024 XR Chest 2 Views [facility] Start: 08-08-2023 End: 08-08-2023 [facility] Start: 07-25-2023 [facility] Start: 07-25-2023 [facility] Start: 06-24-2023 COVID-19 Vaccine ( season) COVID-19 Vaccine () [facility] Start: 12-21-2022 Adult depression scr [facility] assessment DEPRESSION SCREENING [facility] Start: 06-24-2022 Influenza vaccination Influenza Vacc ine (#1) [facility] Start: 05-24-2022 Influenza vaccination Flu vaccine (# 1) [facility] Start: 06-24-2021 Influenza vaccination INFLUENZA (#1) [facility] Start: 2011 DTaP/Tdap/Td Vaccine s (1 - Tdap) DTaP/Tdap/Td Vaccines (1 - Tdap) [facility] Start: 2008 DTaP/Tdap/Td vaccine (1 - Tdap) DTaP/Tdap/Td vaccine (1 - Tdap) [facility] Start: 2008 DTaP/Tdap/Td Vaccine s (1 - Tdap) DTaP/Tdap/Td Vaccines (1 - Tdap) [facility] Start: 2008 Hepatitis B vaccine (1 of 3 - 19+ 3-dose series) Hepatitis B vaccine (1 of 3 - 19+ 3-dose series) [facility] Start: 2008 Hepatitis B Vaccines (1 of 3 - 19+ 3-dose series) Hepatitis B Vaccines (1 of 3 - 19+ 3-dose series) [facility] Start: 2008 Urine microalbumin profile [facility] Start: 2007 Anxiety Screening Anxiety Screening [facility] Start: 2007 [facility] Start: 2007 HEPATITIS C SCREENING HEPATITIS C SC TRAVIS [facility] Start: 2007 Hepatitis C screening B [facility] Start: 2007 HIV SCREENING HIV SCRE[facility]ING [facility] Start: 2007 HIV screening [facility] Start: 2004 HIV screening HIV screen [facility] Start: 2002 Varicella vaccination Varicell a Vaccines (1 of 2 - 13+ 2-dose series) [facility] Start: 2002 Varicella vaccine (1 of 2 - 13+ 2-dose series) Varicella vaccine (1 of 2 - 13+ 2-dose series) [facility] Start: 2001 Depression Screen Depression Screen [facility] Start: 1995 Pneumococcal 0-64 ye ars Vaccine (1 of 2 - PCV) Pneumococcal 0-64 years Vaccine (1 of 2 - PCV) [facility] Start: 1995 Pneumococcal Vaccine : Pediatrics (0 to 5 Years) and At-Risk Patients (6 to 64 Years) (1 of 2 - PCV) Pneumococcal Vaccine: Pediatrics (0 to 5 Years) and At-Risk Patients (6 to 64 Years) (1 of 2 - PCV) [facility] Start: 1994 COVID-19 VACCINE (1) COVID-19 VACCIN E (1) [facility] Start: 1990 MMR Vaccines (1 of 1 - Standard series) MMR Vaccines (1 of 1 - Standard series) [facility] Start: 1990 Varicella vaccine (1 of 2 - 2-dose childhood series) Varicella vaccine (1 of 2 - 2-dose childhood series) [facility] Start: 04-12-1990 COVID-19 Vaccine (#1) COVID-19 Vacci ne (#1) [facility] Start: 1989 Hepatitis C screening Hepatitis C Sc reening [facility] Start: 1989 HIV screening HIV Screening [facility] Start: 1989 Lipid panel Lipid Panel [facility] Start: 1989 [facility]lam[facility] sp rRNA [Presence] in Cervix by Probe Chlamydia Trachomatis, RNA Lab Routine Screening for STD (sexually transmitted disease) 08/02/2022 3:09 PM EDT [facility] EKG 12 Lead EKG 12 Lead ECG STAT 09/11/2024 5:01 PM [facility] 12 Lead ECG STAT 10/09/2024 7:15 PM EST [facility] End: 04-04-2024 MR Heart WO and W contrast IV [facility] Service Area Work Phone: Comment on above: Once for 1 Occurrenc es starting 04/04/2024 until 04/04/2024 End: 04-04-2024 MRA Heart [facility] Work Phone: Comment on above: Once for 1 Occurrenc es starting 04/04/2024 until 04/04/2024 NEISSERIA GONORRHEA/CHLAMYDIA TRACHOMATIS RNA NEISSERIA GONORRHEA/CHLAMYDIA TRACHOMATIS RNA Lab Routine Screening for STD (sexually transmitted disease) 08/02/2022 3:09 PM EDT [facility] Neisseria gonorrhoea e DNA [Presence] in Genital specimen by DANILO with probe detection Neisseria Gonhorrhoeae, RNA Lab Routine Screening for STD (sexually transmitted disease) 08/02/2022 3:09 PM EDT [facility] Patient Education [facility] Work Phone: Patient referral [facility] Work Phone: End: 09-11-2024 Portable XR Chest AP single view [facility] Comment on above: Once for 1 Occurrenc es starting 09/11/2024 until 09/11/2024 End: 08-02-2023 Trichomonas vaginalis, NAAT Trichomonas vaginalis, NAAT Lab Routine Screening for STD (sexually transmitted disease) 1 Occurrences starting 08/02/2022 until 08/02/2023 [facility] Work Phone: Comment on above: 1 Occurrences starti ng 08/02/2022 until 08/02/2023 Trichomonas vaginali s, NAAT Trichomonas vaginalis, NAAT Lab Routine Screening for STD (sexually transmitted disease) 08/02/2022 3:09 PM EDT [facility] Immunizations Immunization Date Immunization Notes Care Provider Lex valdez 07-31-2020 hepatitis B vaccine, adult dosage Ind[facility] 03-20-2020 hepatitis B vaccine, adult dosage Indelsul [facility] 02-21-2020 hepatitis B vaccine, adult dosage Indelsul [facility] 06-18-2002 measles, mumps and rubella virus vaccine Indelsul [facility] Payers Date Payer Category Payer Self-pay [id number] 2023 Private Health Insurance [id number] 2022 Medicaid [id number] 2022 Medicare [employer] MEDICARE UHC DUAL COMPLETE [id number] 2022-Present [address] [place] [address] [id number] 2020 Medicaid [facility] MEDICAID [facility] [employer] MEDICAID [id number] 2020-Present [phone] [address] [place] [address] Medicaid [id number] 2014 Medicaid [id number] 2.16.840.1.455879.19 1989 Unknown [id number] 2.16.840.1.303622.3.579.2. 593 1989 Unknown [id number] 2.16840.1.024806.3.579.2. 593 1989 Unknown [id number] 2.16.840.1.934039.3.579.2. 593 1989 Unknown [id number] 2.16.840.1.455091.3.579.2. 593 1989 Unknown [id number] 2.16.840.1.513878.3.579.2. 727 1989 Unknown [id number] 2.16.840.1.546348.3.579.2. 727 1989 Unknown [id number] 2.16.840.1.730087.3.579.2. 727 1989 Unknown [id number] 2.16.840.1.169981.3.579.2. 727 1989 Unknown [id number] 2.16.840.1.617612.3.579.2. 727 1989 Unknown [id number] 2.16.840.1.612484.3.579.2. 727 1989 Unknown [id number] 2.16.840.1.244507.3.579.2. 1246 1989 Unknown [id number] 2.840.1.738003.3.579.2. 174 1989 Unknown [id number] 2.840.1.277374.3.579.2. 174 1989 Unknown [id number] 2.840.1.652042.3.579.2. 1259 1989 Unknown [id number] 2.840.1.838197.3.579.2. 1259 1989 Unknown [id number] 2.840.1.111077.3.579.2. 1259 1959 Unknown [id number] Unknown [place]/ [id number] Unknown [id number] 2.840.1.984883.3.579.2. 531 Unknown [id number] 2.840.1.843745.3.579.2. 531 Unknown [id number] 2.16840.1.076620.3.579.2. 531 Unknown [id number] 2.16840.1.660391.3.579.2. 531 Unknown [id number] 2.16840.1.549592.3.579.2. 531 Unknown [id number] 2.840.1.874923.3.579.2. 531 Social History Date Type Detail Facility Tobacco smoking stat us MSIS Tobacco smoking consumption unknown [facility] Start: 1990 Sex Assigned At Not on file [facility] Start: 08-02-2022 End: 11-20-2024 Tobacco smoking status NHIS Never smoked tobacco [employer] Start: 08-02-2022 End: 03-26-2024 Tobacco use and exposure Smokeless tobacco non-user [employer] Start: 07-23-2022 End: 04-04-2024 Exposure to SARS-CoV-2 (event) Not sure [employer] Start: 08-21-2022 Tobacco smoking stat us MSIS Occasional tobacco smoker [facility] [employer] Phone: History of tobacco use Cigarette Smoker [facility] [employer] Phone: Start: 08-21-2022 End: 10-09-2024 Alcohol intake Current drinker of alcohol (finding) [employer] Phone: Start: 08-21-2022 Alcohol Comment occasionally [employer] Phone: Start: 08-21-2022 End: 05-28-2024 Sex Assigned At [facility] Start: 1990 Sex Assigned At Male F [facility] Start: 07-25-2023 End: 03-26-2024 Tobacco smoking status NHIS Ex-smoker (finding) [facility] Tobacco smoking status Never [facility] History of tobacco use Current smoker [facility] Start: 08-21-2022 End: 05-28-2024 History of Social function [facility] How often to you hav e a drink containing alcohol? Monthly or less Coub How many standard drinks containing alcohol do you have on a typical day? 1 or 2 Coub How often do you hav e 6 or more drinks on 1 occasion? Never [facility] Start: 05-28-2024 End: 01-07-2025 Alcoholic beverage intake Ex-drinker (finding) [facility] Start: 11-20-2024 Sex Male (finding) [facility] Medical Equipment Procedure Code Equipment Code Equipment Origin al Text Equipment Identifier Dates Cystoscopy, with ureteral calculus manipulation and stent placement Polymeric ureteral stent [id number] FDA Start: 07-25-2023 Cystoscopy, with ureteral calculus manipulation and stent placement Polymeric ureteral stent ()[id number] FDA Start: 08-08-2023 Goals Date Patient Goal Desired Activity /State Functional Status Date Assessment Result Facility 09-27-2023 Functional Status N/A [facility] 07-25-2023 Functional Status N/A [facility] Clinical Notes 12-22-2021 to 01-07-2025 Bharat Keating NP - 01/07/2025 1:55 PM EDT Note Date & Type Note Facility 01-07-2025 History of Present illness Narrative Images from the original note were not included. [address], [address] [facility], [address] P: [phone] F: [phone] HPI Historian of HPI: patient Manuela Davila is a 34 y.o. male who presents today to the Urgent Care with the following complaints and denials which have been present for 3 day(s). C/O Denies Symptom Comments [] [x] Runny Nose [x] [] Difficulty Swallowing [x] [] Sore Throat [x] [] Cough [x] [] Ear Pain ringing [] [x] Fever [] [x] Chills [x] [] Nasal Congestion [x] [] Myalgia [x] [] Sinus Pain [x] [] Sinus Pressure Additional Comments: pt has not taken any OTC medications. Pt states he has some chest tightness from coughing. He is nauseous and does not want to eat. Pt states he can hold liquids down. Pt is agreeable to strep, COVID, and flu testing. Pt states he sees some white spots and bumps in the back of his throat. ROS A complete system ROS was performed and negative aside from the pertinent positives noted in the HPI and PE. Visit Vitals BP 144/66 Pulse 71 Temp 97.6 F Resp 20 Wt 205 lb SpO2 95% BMI 31.17 kg/m Smoking Status Former BSA 2.11 m IH Testing: PHYSICAL EXAM Physical Exam Vitals reviewed. Constitutional: General: He is not in acute distress. Appearance: Normal appearance. HENT: Head: Normocephalic and atraumatic. Right Ear: Hearing, tympanic membrane, ear canal and external ear normal. Left Ear: Hearing, tympanic membrane, ear canal and external ear normal. Nose: Nasal tenderness and congestion present. Right Turbinates: Enlarged and swollen. Left Turbinates: Enlarged and swollen. Mouth/Throat: Lips: Cleves. Mouth: Mucous membranes are moist. Pharynx: Oropharynx is clear. Uvula midline. Posterior oropharyngeal erythema and postnasal drip present. Tonsils: No tonsillar exudate or tonsillar abscesses. Eyes: Extraocular Movements: Extraocular movements intact. Conjunctiva/sclera: Conjunctivae normal. Pupils: Pupils are equal, round, and reactive to light. Cardiovascular: Rate and Rhythm: Normal rate and regular rhythm. Pulses: Normal pulses. Heart sounds: Normal heart sounds. Pulmonary: Effort: Pulmonary effort is normal. No respiratory distress. Breath sounds: No wheezing, rhonchi or rales. Musculoskeletal: General: Normal range of motion. Cervical back: Normal range of motion and neck supple. Skin: General: Skin is warm and dry. Capillary Refill: Capillary refill takes less than 2 seconds. Findings: No rash. Neurological: General: No focal deficit present. Mental Status: He is alert and oriented to person, place, and time. Psychiatric: Mood and Affect: Mood normal. Behavior: Behavior normal. Thought Content: Thought content normal. Judgment: Judgment normal. TREATMENT PLAN 1. Pharyngitis, unspecified etiology Pt presents today for evaluation of sick symptoms. He was strep negative today. New medication as directed. Acetaminophen for reduction of fever and pain. Increase fluids. Good handwashing. Discussed warning signs of worsening infection and when to report to ER. New toothbrush in 24 hours. Call office if symptoms have not started to improve within the next 72 hours. Patient verbalized understanding of instructions. - STREP DNA PROBE 2. Cough, unspecified type -Take medication as prescribed below to completion -cough and deep breathe -May use Tylenol/Ibuprofen for pain/fever -May use OTC medication such as cough syrups especially at night time for relief, pseudoephedrine for nasal congestion, and/or Paola Pot or saline rinses. -Follow up with in 1 week if no improvement or go to the ED for worsening of symptoms such as SOB or CP. - STATUS COVID-19/FLU - methylPREDNISolone (Medrol Dospak) 4 MG tablets; Follow schedule on package instructions Dispense: 21 tablet; Refill: 0 - yibxvbznjemjmtr-iaugoeivfdpulzl-BN 30-2-10 MG/5ML syrup; Take 10 mL by mouth 4 (four) times a day as needed for congestion or cough Dispense: 120 mL; Refill: 0 3. Influenza A (Primary) Patient notified that they are positive for Influenza A. Advised patient that he is highly contagious and to avoid contact with children/elderly/immunocompromised for the next 5-7 days. Tylenol for fever, fluids, rest, OTC supportive treatment. Discussed with the patient that Influenza is a virus and that no antibiotics will treat this. Discussed medications and directions. Start Tamiflu immediately today. Take Prednisone with food, avoid other NSAIDS.To the ER if symptoms worsen or if she develops chest pain, difficulty breathing or worsening sensation of shortness of breath. Follow up in 5-7 days if no improvement or sooner if worsening. - oseltamivir (Tamiflu) 75 MG capsule; Take 1 capsule (75 mg) by mouth in the morning and 1 capsule (75 mg) before bedtime. Do all this for 5 days. Dispense: 10 capsule; Refill: 0 - methylPREDNISolone (Medrol Dospak) 4 MG tablets; Follow schedule on package instructions Dispense: 21 tablet; Refill: 0 documented in this encounter [facility] 11-20-2024 Radiology Diagnostic study note [facility] [place] [address] [place], [place] [id number] CT Scan Report Signed Patient: Manuela Davila MR#: [id number] : 1990 Acct:[id number] Age/Sex: 34 / M ADM Date: 5 Loc: ER Room: Type[facility] ER Attending Dr: Copies to: Kenroy Brandt DO~ Ordering Provider: Kenroy Brandt DO Date of Service: 11/20/24 CT/CT angio chest PE protocol: cp, sob ([id number]) CT/CT abdomen pelvis w con: elevated lipase, midline CP CTA Chest with PE protocol TECHNIQUE: Axial imaging with 2-D and 3-D reconstruction. 90cc of Isovue-[address] exam was performed using one or more the following dose reduction techniques: Automated exposure control, adjustment of the MA and/or Kvaccording to patient size, or use of the [...] Dutch Nuñez M.D.11/20/2024 3:53 PM Dictation Location: [place] [address] Transcribed By: [facility] 11/20/24 1553 Dictated By: Dutch Nuñez DO 11/20/24 1545 Signed By: 11/20/24 1553 [facility] 09-17-2024 Evaluation note Diagnosis Onset Date Resolution Anxiety acute September 17, 2024 2:36pm Asthma acute September 17, 2024 2:36pm Exposure to STD acute September 21, 2024 11:12am Dyspepsia acute September 26, 2024 2:19pm GERD (gastroesophageal reflux disease) acute September 26 2:19pm Hoarseness of voice acute Dece2023 2:19pm Asthma acute October 10, 2024 9:03am Generalized anxiety disorder acute October 10, 024 9:03am Panic disorder acute September 232023 9:03am [facility] Work Phone: [phone] Telephone encounter Note* Telephone Encounter - Umm Ratliff RN - 09/12/2024 1:31 PM EST Patient calling regarding follow up for asthma for pulmonary. He has no new or worsening symptoms at this time.. Conferenced to Maria Del Carmen in the appointment center for assistance. [facility]11-20-2024 Miscellaneous Notes* Telephone Encounter - Umm Ratliff RN - 09/12/2024 1:31 PM EST Patient calling regarding follow up for asthma for pulmonary. He has no new or worsening symptoms at this time.. Conferenced to Maria Del Carmen in the appointment center for assistance. [facility] Telephone encounter Note * Telephone Encounter - Sweetie Davidson RN - 09/11/2024 1:26 PM EST Reason for call: Calls to schedule [facility] pulmonary appointment. [place] Patient states his asthma is worsening since he last saw his PCP. Symptoms worsened over the last week. Having wheezing, SOB, fatigue, sensation of choking, mental fogginess, not myself . Reports severeSOB, although is speaking in full sentences to this RN. Outcome: 911/immediate ED advised for SOB, asthma flare. Verbalizes understanding but states he is currently working and cannot call 911 or go to ED now. Will go to local ED as soon as he finishes his current task. Reason for Disposition [1] MODERATE asthma attack (e.g., SOB at rest, speaks in phrases, audible wheezes) AND [2] doesn't have neb or inhaler available Nurse note: patient states asthma symptoms severe, but speaking in full sentences, and using Albuterol inhaler now during triage. Advised to go to a local ED now. Protocols used: Asthma Dqpvxv-WQLWX-KT [facility]11-19-2024 Miscellaneous Notes* Telephone Encounter - Sweetie Davidson RN - 09/11/2024 1:26 PM EST Reason for call: Calls to schedule [facility] pulmonary appointment. [place]. Patient states his asthma is worsening since he last saw his PCP. Symptoms worsened over the last week. Having wheezing, SOB, fatigue, sensation of choking, mental fogginess, not myself . Reports severeSOB, although is speaking in full sentences to this RN. Outcome: 911/immediate ED advised for SOB, asthma flare. Verbalizes understanding but states he is currently working and cannot call 911 or go to ED now. Will go to local ED as soon as he finishes his current task. Reason for Disposition [1] MODERATE asthma attack (e.g., SOB at rest, speaks in phrases, audible wheezes) AND [2] doesn't have neb or inhaler available Nurse note: patient states asthma symptoms severe, but speaking in full sentences, and using Albuterol inhaler now during triage. Advised to go to a local ED now. Protocols used: Asthma Xgdxva-HNIYK-TY documented in this encounterUniversity [facility]04-17-20[facility] Evaluation note* Author Lashaun Flor [facility] Authored February 08, 2024 4:2 2pm Patient in the office today for Zio patch application for syncope and collapse ordered per Dr. Gonzalez. [facility] Work Phone: [phone] Evaluation note* Encounter Date Diagnosis Assessment Notes [...] needed for cough. Increase fluids and rest. Wtoz-ajw-zdyhfqw antipyretics as needed. Warning signs and symptoms reviewed with patient today. Patient to go immediately to the ER should she experience any of these. Patient to notify office should symptoms persist and not improve. may need x-ray evaluation. Patient verbalizes understanding and agrees to treatment plan. [facility] Other 01-29-2024 Evaluation note* Encounter Date Diagnosis [...] 3 days. Off work today and tomorrow. [facility] Other 01-12-2024 Evaluation note* Encounter Date Diagnosis [...] she is getting surgical myectomy today at [facility]. They had been estranged for a number of years and only started talking after she got diagnosed and told him to get evaluated. He is unaware of specific genetic testing/mutation in the sister. No family history of sudden cardiac . He reports significant history of palpitations and has cardiac work up: - ECHO 10/13/2023 at [place] (images not available): Normal LVEF 55-60%. Reported [...] his symptoms. - Follow-up in 2 months [facility] Other 12-26-2023 Evaluation note* Encounter Date Diagnosis Assessment Notes Treatment Notes Treatment Clinical Notes Sep, Ventricular hypertrophy (ICD-10 - I51.7) [facility] Other 12-05-2023 Hospital Discharge instructions Patient Education [...] include: ?8 oz (237 mL) of milk, ihrcruv-dpngsfwcxjcf-xiuwt milk, and calcium- fortifiedfruit juice. Calcium-fortified means [...] ?Spinach (cooked), rhubarb, beets, sweet potatoes, and Venezuelan chard. ?Peanuts. ?Potato chips, samoan fries, and baked potatoes with skin on. ?Nuts and nut products. ?Chocolate. If you regularly take a diuretic medicine, make sure to eat at least 1 or 2 servings of fruits or vegetables that are high in potassium each day. These include: ?Avocado. ?Banana. ?Kamuela, prune, carrot, or tomato juice. ?Baked potato. [...] magnesium, fish oil, or vitamin B6. Take yuxd-rxi-levqwfv and prescription medicines only as told by [...] Casseroles. Pizza. Lasagna. Frozen meals. Potato chips. Liberian fries. The items listed above may not [...] provider. Document Revised: 01/20/2023 Document Reviewed: 01/20/2023 [employer] Patient Education 2022 [employer]. Follow Up Care 09/01/2023 14:23:50 With:VERO MOSS PA-C, URL Address: [address] [place] [address] [phone] When: Unknown Comments:has f/u with [facility] 02/14/2024 [facility] 11-27-2023 Evaluation note* Encounter Date Diagnosis Assessment [...] ER this past week. Will recheck labs. [facility] Other 10-02-2023 Hospital Discharge instructions Patient Education [...] include: ?8 oz (237 mL) of milk, oiajptw-pfqxbncgqumz-ixzgj milk, and calcium- fortifiedfruit juice. Calcium-fortified means [...] ?Spinach (cooked), rhubarb, beets, sweet potatoes, and Venezuelan chard. ?Peanuts. ?Potato chips, samoan fries, and baked potatoes with skin on. ?Nuts and nut products. ?Chocolate. If you regularly take a diuretic medicine, make sure to eat at least 1 or 2 servings of fruits or vegetables that are high in potassium each day. These include: ?Avocado. ?Banana. ?Kamuela, prune, carrot, or tomato juice. ?Baked potato. [...] magnesium, fish oil, or vitamin B6. Take ysai-mvk-bdtqtkb and prescription medicines only as told by [...] Casseroles. Pizza. Lasagna. Frozen meals. Potato chips. Liberian fries. The items listed above may not [...] provider. Document Revised: 06/21/2022 Document Reviewed: 06/21/2022 [employer] Patient Education 2022 [employer]. Follow Up Care 07/22/2023 15:08:09 With:NESTOR PERSON, Mina Nam, URL Address: [facility] [place] [id number]- When: Unknown Comments:Sched Cysto with retro Stent Placement w/pos ureteroscopy [facility] 09-14-2023 Evaluation note* Encounter Date Diagnosis Assessment [...] Suspected COVID-19 virus infection (ICD-10 - Z20.822) [facility] Other 07-31-2023 Evaluation note* Encounter Date Diagnosis Assessment Notes Treatment Notes Treatment Clinical Notes Apr, Viral gastroenteriti s (ICD-10 - A08.4) Vitals stable. No signs of acute abdomen on exam. Discussed exam and history is consistent with viral gastroenteritis. Discussed viral nature of illness and typical duration. Fluids and rest encouraged. [place] diet in small amounts as tolerated. May continue Kaopectate. Will Rx as needed Zofran for nausea. Work note given. Discussed contagious nature. Follow-up with PCP if not improving over the next 4 to 5 days, significantly worsening symptoms or high fevers. Patient verbalized understanding of treatment plan. [facility] Other 10-10-2022 History of Present illness Narrative* [...] he knew he woke up [place] and he reports sexual acts were [...] ear normal. Nose: Nose normal. Mouth/Throat: Lips: Cleves. Mouth: Mucous membranes are moist. Pharynx: Oropharynx [...] assistance. Advised pt to advance to either [facility] or health dept for complete blood work [...] agreeable with the plan. documented in [facility] Instructions* Patient Instructions* ISACC Walker - 08/02/2022 [...] [facility] documented in this [facility]05-31-2022 Note PROCEDURE: XR CHEST 1 V REASON FOR STUDY/CLINICAL HISTORY: COUGH. COMPARISON STUDY: 02/12/2017. TECHNIQUE: Single view(s) of the chest presented for interpretation. FINDINGS: No acute cardiopulmonary process. Normal cardiomediastinal silhouette. No focal consolidation, edema, or large pleural effusion. No pneumothorax. No acute appearing focal significant bony abnormality. IMPRESSION: No acute localizing pulmonary pathology. Electronically authenticated by: ELISEO PIERCE Date: 2022-03-23 00:06[facility]03-01-2022 NoteHNO ID: [id number] Author: RALF Troy Service: ? Author Type: [...] for Vivitrol including comprehensive evaluation, [facility], prior authorization and referral to chronic care clinic. Patient states that it is difficult for him to get to [place] and would like something closer to where he is located. Provided patient contact information for [facility]. Patient declined [facility] evaluation. Provided [facility] contact information and instructed patient to call if interested in rescheduling appointment. RALF Troy-Ellis, [facility] No data available for this section [facility] Evaluation + Plan note Future Appointments Appointment Date:02/14/2024 02:30:00 PM Scheduled Provider:Mina MCCLOUD MD Location:[facility] Appointment Type:URO Office Visit [facility] Evaluation note* Diagnosis APPOINTMENT CANCELLED- Primary [facility] encounter [facility] Diagnosis Viral infection, unspecified- Primary Screening for STD (sexually transmitted disease) Anxiety about health documented in this encounter [facility]* Diagnosis Accidental drug overdose, initial encounter- Primary documented in this encounter [facility] Work Phone: evaluation noteNo assessment information available [facility] Work Phone: Evaluation noteNo InformationNort Dreampod Other Evaluation note* Diagnosis Onset Date Resolution Status Atopic dermatitis acute Generalized anxiety disorder with panic attacks acute [facility] Work Phone: Evaluation note* Diagnosis Onset Date Resolution Status Atopic dermatitis acute Generalized anxiety disorder with panic attacks acute Contact with and (suspected) exposure to covid-19 noneactive [facility] Work Phone: Evaluation note* Diagnosis Onset Date Resolution Status Atopic dermatitis acute Generalized anxiety disorder with panic attacks acute Contact with and (suspected) exposure to covid-19 noneactive Mild intermittent asthma with acute exacerbation noneactive [facility] Work Phone: Evaluation note* Diagnosis Onset Date Resolution Status Atopic dermatitis acute Generalized anxiety disorder with panic attacks acute Contact with and (suspected) exposure to covid-19 noneactive Mild intermittent asthma with acute exacerbation noneactive Bronchitis acute Mild intermittent asthma without complication acute [facility] Work Phone: Evaluation note* Diagnosis Onset Date Resolution Status Atopic dermatitis acute Generalized anxiety disorder with panic attacks acute Contact with and (suspected) exposure to covid-19 noneactive Mild intermittent asthma with acute exacerbation noneactive Bronchitis acute Mild intermittent asthma without complication acute Panic disorder acute [facility] Work Phone: Evaluation note* Diagnosis Onset Date Resolution Status Atopic dermatitis acute Generalized anxiety disorder with panic attacks acute Contact with and (suspected) exposure to covid-19 noneactive Mild intermittent asthma with acute exacerbation noneactive Mild intermittent asthma without complication acute Mild intermittent asthma without complication acute Panic disorder acute [facility] Work Phone: Evaluation note* Diagnosis Other hypertrophic cardiomyopathy (Multi) Other hypertrophic cardiomyopathy documented in this encounter [facility] Work Phone: Evaluation note* Diagnosis Onset Date Resolution Status Enlargement of left palatine tonsil acute Hoarseness of voice acute Left hip pain acute Paresthesia of left lower extremity acute Eustachian tube dysfunction acute Rash acute Warts acute Anxiety acute Asthma exacerbation acute [facility] Work Phone: Evaluation note* Diagnosis Shortness of breath- Primary [facility] Chest pain, unspecified type- Primary Moderate persistent asthma with exacerbation Unspecified asthma, with exacerbation [facility] Diagnosis LPRD (laryngopharyngeal reflux disease) Acute laryngitis, without mention of obstruction [facility] Influenza A- Primary Influenza with other respiratory manifestations Pharyngitis, unspecified etiology Cough, unspecified type documented in this encounter [facility] HealthcareHistory general Narrative - Reported* Type Description Date Medical History hernia Medical History anxiety Medical History asthma Medical History HSVZ Medical History ADD Medical History Chronic back pain Surgical History hernia x2 Adsame Other History general Narrative - Reported* Type Description Date Medical History hernia Medical History anxiety Medical History asthma Medical History HSVZ Medical History ADD Medical History Chronic back pain Surgical History hernia x2 Surgical History lithotripsy 2022 Adsame Other [employer] general Narrative - Reported* Type Description Date Medical History hernia Medical History anxiety Medical History asthma Medical History HSVZ Medical History ADD Medical History Chronic back pain Surgical History hernia x2 Surgical History lithotripsy 2022 Hospitalization History See Above Adsame Other Hospital Discharge instructions* Attachments The following attachments cannot be sent through Care Everywhere. * Opioids: General Info (Namibian) [facility] Discharge instructions Additional Instructions Percocets for severe pain You cannot work or drive when taking Percocet Tylenol or Motrin if needed for minor pain If needed for nausea vomiting Flomax daily Strain all urine Follow-up with urology as discussed Return here if you develop any fever, chills, increased pain vomiting or any other[facility] Work Phone: Hospital Discharge instructions Additional [...] other reasons. 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 Discharge instructions Additional Instructions Follow-up with your primary care doctor Return to ED if develop worsening symptoms or concernsSam[facility] Work Phone: Hospital Discharge instructionsAmbulatory Orders* Referral to Neurology Location: None Selected [facility] Work Phone: Hospital Discharge instructions* Attachments The following attachments cannot be sent through Care Everywhere. * SOB (Shortness of Breath) (Namibian) [facility]* Attachments The following attachments cannot be sent through Care Everywhere. * Chest Pain (Namibian) * Asthma Attack (Namibian) [facility] Additional Instructions If your symptoms return/worsen or you develop any further concerns or symptoms please see your doctor or return to the emergency department immediately.[facility] Work Phone: Progress note No data available for this section [facility] Summary Purpose Family History Relationship Condition Age at Onset Recorded Date/T ashlee Not Specified No pertinent family history Unknown Advance Directives Documents on File Type Date Recorded 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 Advance Directives and Living Will Power of Pattern Chain Builder Advance Directive Response Recorded Date/ Time Advance [...] Sick rash on hands Chest congestion sob [phone]; Bronchitis Reason for Visit Atopic dermatitis Generalized anxiety disorder with panic attacks Contact with and (suspected) exposure to covid-19 Mild intermittent asthma with acute exacerbation Bronchitis Mild intermittent asthma without complication Chief Complaint Referred By Vero Stern For Vent Sore Throat, Congestion Sick rash on hands Chest congestion sob [phone]; Bronchitis Worsening Anxiety Reason for Visit Atopic dermatitis Generalized anxiety disorder with panic attacks Contact with and (suspected) exposure to covid-19 Mild intermittent asthma with acute exacerbation Bronchitis Mild intermittent asthma without complication Panic disorder Chief Complaint Sore Throat, Congest ion Sick rash on hands Chest congestion sob [phone]; Bronchitis Worsening Anxiety zio patch Reason for Visit Atopic dermatitis Generalized anxiety disorder with panic attacks Contact with and (suspected) exposure to covid-19 Mild intermittent asthma with acute exacerbation Mild intermittent asthma without complication Mild intermittent asthma without complication Panic disorder Chief Complaint Chest congestion sob [phone]; Bronchitis Worsening Anxiety zio patch Discuss Medication Reason for Visit Contact with and (simon spected) exposure to covid-19 Mild intermittent asthma with acute exacerbation Mild intermittent asthma without complication Mild intermittent asthma without complication Panic disorder Left hip pain Paresthesia of left lower extremity Chief Complaint Chest congestion sob [phone]; Bronchitis Worsening Anxiety zio patch Discuss Medication [...] tube dysfunction Rash Warts Anxiety Asthma exacerbation Chief Complaint Admit Date Amb Documentation September 12, 2024 9:05am ER f/u September 17, 2024 2:36pm std panel September 21, 2024 11:12am Refer by Alexa Stern: GERD September 2:19pm Z20.2 September 26, 2024 2 :46pm difficulty breathing October 03, 2024 3:39pm Amb Documentation October 04, 2024 9:21am chest pain, sob October 09, 2024 10:39pm ER Follow Up October 10, 2024 9:03am Dyspepsia October 15, 2024 9:31am Dyspepsia October 15, 2024 10:13am chest pain November 20, 2024 1 2:40pm Reason for Visit Admit Date Anxiety September 17, 2024 2:36pm Asthma September 17, 2024 2:36pm Exposure to STD September 21, 2024 11:12am Dyspepsia September 26, 2024 2 :19pm GERD (gastroesophageal reflux disease) D ec2023 2:19pm Hoarseness of voice September 26, 2024 2 :19pm Asthma October 10, 2024 9:03am Generalized anxiety disorder October 102023 9:03am Panic disorder October 10, 2024 9:03am Reason for Referral Specialty Diagnoses / Procedures Referred By Awilda solis Referred To Contact Radiology Diagnoses Other hypertrophic cardiomyopathy (Multi) Procedures MR cardiac resonance imaging for velocity flow mapping Joelle Gonzalez MD [address] as of 04/23/18 [place] [id number] Referral ID Status Reason Start Date Expiration Date Visits Requested Visits Authorized [id number] Authorized Perform Procedure 03/06/2024 03/06/2025 1 1 Specialty Diagnoses / Procedures Referred By Awilda solis Referred To Contact Radiology Diagnoses Other hypertrophic cardiomyopathy (Multi) Procedures MR cardiac morphology and function w and wo IV contrast Joelle Gonzalez MD [address] as of 04/23/18 [place] [id number] Referral ID Status Reason Start Date Expiration Date Visits Requested Visits Authorized [id number] Authorized Perform Procedure 01/23/2024 01/22/2025 1 1 Reason evaluate Diagnosis 1 Ventricular hypertro phy (I51.7) Referral Organization [facility] renee Referring Provider First Name Vero Referring Provider Last Name Rohrbacher Referring Provider Specialty Nurse Pract chace Referred Organization [facility] Cardiology Referred Provider Joelle Gonzalez Referred Address [address] [facility],[place] [address],[place], [place],[id number] Referred Provider Specialty Cardiovascul ar Disease Referral Priority Routine Additional Source Comments Source Comments (unrecognize d section and content) In the event this informatio n is protected by the Federal Confidentiality of Alcohol and Drug Abuse Patient Records regulations: The Federal rules restrict any use of the information to criminally investigate or prosecute any alcohol or drug abuse patient.[facility] the event this information is protected by the Federal Confidentiality of Alcohol and Drug Abuse Patient Records regulations: The Federal rules restrict any use of the information to criminally investigate or prosecute any alcohol or drug abuse patient.[facility] the event this information is protected by the Federal Confidentiality of Alcohol and Drug Abuse Patient Records regulations: The Federal rules restrict any use of the information to criminally investigate or prosecute any alcohol or drug abuse patient.[facility] Reason for Visit (unrecogniz ed section and [...] [address] as of 04/23/18 [place] [id number] Referral ID Status Reason Start Date Expiration Date Visits Requested Visits Authorized [id number] Authorized Perform Procedure 01/23/2024 01/22/2025 1 1 Reason Comments Shortness of Breath Sob for a year.Has h ad testing and atb off and on for a year Reason Comments Asthma Referral to pulmonar y Reason Comments Scheduling Reason Comments Chest Pain C.o chest pain midst ernal for a few hours. Pain is sharp 4/10 nonradiating. States he has been having SOB for the last few hours as well. States he has been sick for the last month. States he feels like he can't get a deep breath Reason Comments Med Refill (unrecognized sect ion and content) No Status Records FoundNo Status Records FoundNo Status Records FoundNo Status Records FoundNo Status Records FoundNo Status Records FoundNo Status Records FoundNo Status Records Found INFORMATION SOURCE (unrecogn ized section and content) DATE CREATED AUTHOR 12/22/2021 [facility] DATE CREATED AUTHOR AUTHOR'S ORGANIZ ATION 08/21/2022 [facility] DATE CREATED AUTHOR AUTHOR'S ORGANIZ ATION 11/06/2022 [facility] DATE CREATED AUTHOR AUTHOR'S ORGANIZ ATION 02/16/2024 [facility] DATE CREATED AUTHOR AUTHOR'S ORGANIZ ATION 05/12/2024 [facility] DATE CREATED AUTHOR AUTHOR'S ORGANIZ ATION 10/13/2024 [facility] DATE CREATED AUTHOR AUTHOR'S ORGANIZ ATION 11/30/2024 [facility] DATE CREATED AUTHOR AUTHOR'S ORGANIZ ATION 01/09/2025 [facility] d[facility] Specialists EPIC Care Teams (unrecognized sec tion and content) Team Status: Active Member Role Status Dates PHYSICIAN NO FAMILY Primary Care Provider Active Team Status: Inactive Member Role Status Dates PHYSICIAN NO FAMILY Primary Care Provider Active Mina Mccloud MD Attending Provider Active Team Status: Inactive Member Role Status Dates PHYSICIAN NO FAMILY Primary Care Provider Active Aracelis Robertson APRN Emergency Provider Active Team Status: Active Member Role Status Dates PHYSICIAN NO FAMILY Primary Care Provider Active Mina Mccloud MD Attending Provider Active Team Status: Active Member Role Status Dates Vero Stern APRN PROPELLANT CHARGE LOADER-C Primary Care Provider Active Team Status: Inactive Member Role Status Dates La Nena Travis APRN Attending Provider Active Start: September 10, 2023 End: September 10, 2023 Team Status: Inactive Member Role Status Dates Vero Stern APRN PROPELLANT CHARGE LOADER-C Attending Provider Act kira Start: September 19, 2023 End: September 19, 2023 Team Status: Inactive Member Role Status Dates Joelle Gonzalez MD Attending Provider Active Sta rt: November 04, 2023 End: November 04, 2023 Team Status: Inactive Member Role Status Dates Pura Kay PROPELLANT CHARGE LOADER-C Attending Provider Active S tart: November 21, 2023 End: November 21, 2023 Team Status: Inactive Member Role Status Dates Vero Stern APRN PROPELLANT CHARGE LOADER-C Attending Provider Act kira Start: November 23, 2023 End: November 23, 2023 Team Status: Inactive Member Role Status Dates Vero Stern APRN PROPELLANT CHARGE LOADER-C Primary Care Provider, Attending Provider Active Start: December 07, 2023 End: December 07, 2023 Team Status: Inactive Member Role Status Dates Vero Stern APRN PROPELLANT CHARGE LOADER-C Primary Care Provider Active Start: January 13, 2024 End: January 13, 2024 La Nena Travis APRN Attending Provider Active Start: January 13, 2024 End: January 13, 2024 Team Status: Inactive Member Role Status Dates Vero Stern APRN PROPELLANT CHARGE LOADER-C Primary Care Provider Active Start: January 15, 2024 End: January 15, 2024 Sang Lovett DO Emergency Provider Active Sta rt: January 15, 2024 End: January 15, 2024 Team Status: Inactive Member Role Status Dates Vero Stern APRN PROPELLANT CHARGE LOADER-C Primary Care Provider, Attending Provider Active Start: January 16, 2024 End: January 16, 2024 Team Status: Active Member Role Status Dates Vero Stern APRN PROPELLANT CHARGE LOADER-C Primary Care Provider Active Start: January 18, 2024 Wily Dover DO Attending Provider Active Sta rt: January 18, 2024 Team Status: Inactive Member Role Status Dates Vero Stern APRN PROPELLANT CHARGE LOADER-C Primary Care Provider, Attending Provider Active Start: January 19, 2024 End: January 19, 2024 Team Status: Inactive Member Role Status Dates Vero Stern APRN PROPELLANT CHARGE LOADER-C Primary Care Provider Active Start: February 08, 2024 End: February 08, 2024 Joelle Gonzalez MD Attending Provider Active Sta rt: February 08, 2024 End: February 08, 2024 Team Status: Active Member Role Status Dates Vero Stern APRN PROPELLANT CHARGE LOADER-C Primary Care Provider Active Start: March 06, 2024 Tao NASH DO Attending Provider Active Start: March 06, 2024 Team Status: Inactive Member Role Status Dates Vero Stern APRN PROPELLANT CHARGE LOADER-C Primary Care Provider, Attending Provider Active Start: March 23, 2024 End: March 23, 2024 Team Status: Inactive Member Role Status Dates Vero Stern APRN PROPELLANT CHARGE LOADER-C Primary Care Provider, Attending Provider Active Start: April 11, 2024 End: April 11, 2024 Team Status: Inactive Member Role Status Dates Vero Stern APRN PROPELLANT CHARGE LOADER-C Primary Care Provider, Attending Provider Active Start: June 05, 2024 End: June 05, 2024 [place] Relationship Specialty Start Date End Date Vero Stern APRN - SENIOR COURTROOM CLERK [address] [place] [id number] PCP - General 09/11/24 [place] Relationship Specialty Start Date End Date Vero Stern NP [address] [place] [address] Nurse Practitioner 09/11/24 [place] Relationship Specialty Start Date End Date Vero Stern APRN - SENIOR COURTROOM CLERK [address] [place] [address] PCP - General 09/11/24 [place] Relationship Specialty Start Date End Date Vero Stern NP [address] [facility] [place] [address] PCP - General Family Medicine 03/26/24 Team Status: Active Member Role Status Dates Vero Stern APRN PROPELLANT CHARGE LOADER-C Primary Care Provider Active Start: September 122023 Renay Montoya CMA Attending Provider Active Start: September 12, 2024 Team Status: Inactive Member Role Status Dates Vero Stern APRN PROPELLANT CHARGE LOADER-C Primary Care Provider, Attending Provider Active Start: September 17, 2024 End: September 17, 2024 Team Status: Inactive Member Role Status Dates Vero Stern APRN PROPELLANT CHARGE LOADER-C Primary Care Provider, Attending Provider Active Start: September 21, 2024 End: September 21, 2024 Team Status: Inactive Member Role Status Dates Vero Stern APRN PROPELLANT CHARGE LOADER-C Primary Care Provider Active Start: September End: September 26, 2024 Philip Gibson MD Attending Provider Active S tart: September 26, 2024 End: September 26, 2024 Team Status: Inactive Member Role Status Dates Vero Stern APRN PROPELLANT CHARGE LOADER-C Primary Care Provider, Attending Provider Active Start: September 26, 2024 End: September 26, 2024 Tao Kwong DO Other Provider Active Start: September 26, 2024 End: September 26, 2024 Team Status: Inactive Member Role Status Dates Vero Stern APRN PROPELLANT CHARGE LOADER-C Primary Care Provider Active Start: October 032023 End: October 03, 2024 NATE Hsu-Radha Emergency Provider Active Start: October 03, 2024 End: October 03, 2024 Team Status: Active Member Role Status Dates Vero Stern APRN PROPELLANT CHARGE LOADER-C Primary Care Provider Active Start: October 042023 Renay Montoya CMA Attending Provider Active Start: October 04, 2024 Team Status: Inactive Member Role Status Dates Vero Stern APRN PROPELLANT CHARGE LOADER-C Primary Care Provider Active Start: October 092023 End: October 10, 2024 Yessenia Mosher DO Emergency Provider Active Start: October 09, 2024 End: October 10, 2024 Team Status: Inactive Member Role Status Dates Vero Stern APRN PROPELLANT CHARGE LOADER-C Primary Care Provider, Attending Provider Active Start: October 10, 2024 End: October 10, 2024 Team Status: Inactive Member Role Status Dates Vero Stern APRN PROPELLANT CHARGE LOADER-C Primary Care Provider Active Start: October 152023 End: October 15, 2024 Philip Gibson MD Attending Provider Active S tart: October 15, 2024 End: October 15, 2024 Team Status: Active Member Role Status Dates Vero Stern APRN PROPELLANT CHARGE LOADER-C Primary Care Provider Active Start: October 152023 Philip Gibson MD Attending Provider, Other Provider Active Start: October 15, 2024 Team Status: Inactive Member Role Status Dates Vero Stern APRN PROPELLANT CHARGE LOADER-C Primary Care Provider Active Start: October End: November 20, 2024 Kenroy Brandt DO Emergency Provider Active Start: November 20, 2024 End: November 20, 2024 [place] Relationship Specialty Start Date End Date Vero Stern NP [address] [place] [address] PCP - General Family Medicine 03/26/24 Goals (unrecognized section and content) Goals may be documented in a n alternate section Ordered Prescriptions (unrec ognized section and content) Prescription Sig Dispensed Refills Start Date End Da te predniSONE (DELTASONE) 20 MG tablet Take 2 tablets by mouth daily for 5 days 10 tablet 10/09/2024 10/14/2024 Scheduled Active and Recently Administ ered Medications (unrecognized section and content) Medication Order 10/07/2024 10/08/2024 10/09/2024 ipratropium 0.5 mg-albuterol 2.5 mg (DUONEB) nebulizer solution 1 Dose (COMPLETED) 1 Dose, Inhalation, ONCE, 1 dose, On Tue10/09/24 at 2014, Initiate RT Bronchodilator Protocol: No 2019 (Given - Provid er: La Nena Gutierrez RCP) methylPREDNISolone sodium succ (SOLU-MEDROL) 125 mg in sterile water 2 mL injection (COMPLETED) 125 mg, IntraVENous, ONCE, On Tue10/09/24 at 2014, For 1 dose, Reconstitute 125 mg vial with 2 mL diluent. 2024 (Given - Provid er: Jovan Beard RN) FOR RECORDS PERTAINING TO PATIENTS WHO ARE [...] BE BASED ON THE PRIMARY CLINICAL RECORDS. [employer] provides no warranty or guarantee of the accuracy or completeness of information in this document.
--- OUTSIDE RECORDS SUMMARY | 2025-07-14 18:11 | XMS_ITS | Encounter Summary ---
[id number] [address] [place] [address] Care Team Providers Care Machine Riveter Name Role Phone Unavailable Primary Care Provider Unavailabl e Encounter Details Date Type Department Care Team (Late st Contact Info) Description 03/28/2024 Telephone [facility] - E[facility] [address] [place] [address] Jason Cee MD PhD [address] RETIRED 05/23/2024 [place] [address] Social History Tobacco Use Types Packs/Day Years [...] declined 03/25/2022 How often do you attend faith or sikhism serv ices? Patient declined 03/25/2022 Do you belong to any clubs o r organizations such as faith groups, unions, fraternal or athletic groups, or [...] Answer Date Recorded Total Score 22 03/25/2022 [facility] [place] of Occupat ional Health - Occupational Stress [...] Do you need help finding a l al career center and/or a training program? [...] on file documented as of this encounter Miscellaneous Notes * Telephone Encounter - Vero Joaquin - 03/28/2024 3:50 PM EDT Called and lm that Dr Cee is retiring and that we can schedule the pt with one of our providers at our locations documented in this encounter Plan of Treatment Not on file documented as of this encounter Visit Diagnoses Not on filedocumented in this encounter Additional Health Concerns Assessment Noted Time PHQ-9 Depression Total Score: 22 022 10:40 AM EDT A Body Mass Index follow-up plan has been documented for the patient 03/25/2022 11:06 AM EDT documented as of this encounter
--- OUTSIDE RECORDS SUMMARY | 2025-07-14 18:11 | XMS_ITS | Encounter Summary ---
Author Organization [employer] Address [facility] [place]-[id number] [address] [place] [address] Care Team Providers Care News Videotape Editor Name Role Phone Unavailable Primary Care Provider Unavailabl e Encounter Details Date Type Department Care Team (Late st Contact Info) Description 08/19/2022 Telephone [facility] [address] [facility] [place] [phone] Gin Ballard MA Social History Tobacco Use Types Packs/Day Years [...] declined 03/25/2022 How often do you attend caodaism or rastafari serv ices? Patient declined 03/25/2022 Do you belong to any clubs o r organizations such as caodaism groups, unions, fraternal or athletic groups, or [...] Answer Date Recorded Total Score 22 03/25/2022 [facility] of Occupat ional Health - Occupational Stress [...] Recorded Do you need help finding a [facility] career center and/or a training program? No 03/25/2022 Purpose - Life Answer Date Recorded I have a purpose and direction in my life. Paul gly Disagree 03/25/2022 Education Answer Date Recorded [...] encounter Miscellaneous Notes * Telephone Encounter - Gin Ballard MA - 08/19/2022 3:18 PM EDT Pt called, I removed your name, he moved to [place], [place] documented in this encounter Plan of Treatment [...]
--- OUTSIDE RECORDS SUMMARY | 2025-07-14 18:11 | XMS_ITS | Clinical Summary ---
Author Organization [facility] Address [address] [place] [address] Phone Care Team Providers Care Flight Teacher Name Role Phone Unavailable Primary Care Provider Unavailabl e Social History Tobacco Use Types Packs/Day Years Used Date Smoking Tobacco: Never Assessed Sex and Gender Information Value Date Recorded Sex Assigned at Not on file Legal Sex Male 2:58 PM EDT Gender Identity Not on file Sexual Orientation Not on file Last Filed Vital Signs Vital Sign Reading Time Taken Comments Blood Pressure - - Pulse - - Temperature - - Respiratory Rate - - Oxygen Saturation - - Inhaled Oxygen Concentration - - Weight 93 kg (205 lb) 04/04/2024 2:48 PM EDT Height 172.7 cm (5' 8 ) 04/04/2024 2:48 PM EDT Body Mass Index 31.17 04/04/2024 2:48 PM EDT Plan of Treatment Health Maintenance Due Date Last Done Comments HIV Screening 1989 Lipid Panel 1989 Hepatitis C Screening 2007 Pneumococcal Vaccine: Pediatrics and At-Risk Adult Patients (1 of 2 - PCV) 2008 DTaP/Tdap/Td Vaccines (1 - Tdap) 2011 HPV Vaccines (1 - 3-dose standard series) 2016 Yearly Adult Physical 05/07/2022 05/06/2021 COVID-19 Vaccine (1 - 2023-2 5 season) 2025 Influenza Vaccine (#1) 2025 Zoster Vaccines (1 of 2) 2039 MMR Vaccines Completed 06/18/2002 Hepatitis B Vaccines Completed 07/31/2020, 03/20/2020, 02/21/2020 HIB Vaccines Aged Out No longer eligi ble based on patient's age to complete this topic Hepatitis A Vaccines Aged Out No long er eligible based on patient's age to complete this topic IPV Vaccines Aged Out No longer eligi ble based on patient's age to complete this topic Meningococcal Vaccine Aged Out No sky tiago eligible based on patient's age to complete this topic Rotavirus Vaccines Aged Out No longer eligible based on patient's age to complete this topic Insurance
--- OUTSIDE RECORDS SUMMARY | 2025-07-14 18:11 | XMS_ITS | Encounter Summary ---
Author Organization [employer] Address [facility] [place]-[id number] [address] [place] [address] Care Team Providers Care Cytogenetic Technologist Name Role Phone Mary Yee APRN-ORGANIZATIONAL DEVELOPMENT DIRECTOR Primary Care Provid er Encounter Details Date Type Department Care Team (Late st Contact Info) Description 12/17/2021 Telephone [facility] [address] [place] [address] [place] [address] Gin Ballard MA Social History Tobacco Use [...] often do you attend chur ch or mu-ism services? More than 4 times per year 05/18/2021 Do you belong to any clubs o r organizations such as nondenominational groups, unions, fraternal or athletic groups, or [...] Answer Date Recorded Total Score 0 11/10/2021 [facility] [place] of Occupat ional Health - Occupational Stress [...] Recorded Do you need help finding a [facility] career center and/or a training program? No [...] Miscellaneous Notes * Telephone Encounter - Gin Ballard, MA - 12/17/2021 8:30 AM EST Ns 12/16/21, 11/19/21, 08/11/21 cx same day 09/16/21 cx 11/10/21 documented in this encounter Plan of Treatment [...] plan has been documented for the patient 12/17/2021 12:23 PM EST documented as of this encounter Care Teams Cytogenetic Technologist Relationship Specialty Start Date End Date Mary Yee, ASSISTANT REAL ESTATE MANAGER-ORGANIZATIONAL DEVELOPMENT DIRECTOR PCP - General Family Medicine 04/06/21 08/18/22 documented as of this encounter
--- OUTSIDE RECORDS SUMMARY | 2025-07-14 18:11 | XMS_ITS | Encounter Summary ---
Author [facility] Address [facility] [place]-[id number] [address] [place] [address] Care Team Providers Care Hog Ribber Name Role Phone Mary Yee APRN-NETWORK ADMINISTRATOR Primary Care Provid er Encounter Details Date Type Department Care Team (Late st Contact Info) Description 12/21/2021 Orders Only [facility] [address] [facility] [place] [address] Kellee Frias CMA Exposure to confirmed case of COVID-19; Upper respiratory tract infection, unspecified type Social History Tobacco Use Types Packs/Day Years [...] often do you attend chur ch or alevism services? More than 4 times per year 05/18/2021 Do you belong to any clubs o r organizations such as mormonism groups, unions, fraternal or athletic groups, or [...] Answer Date Recorded Total Score 0 11/10/2021 [facility] of Occupat ional Health - Occupational Stress [...] purpose and direction in my life. Paul sandhu Agree 05/18/2021 Education Answer Date Recorded What [...] Diagnosis Comments SARS COV 2 (COVID-19) STAT 12/18/2021 Exposure to confirmed case of COVID-19 Upper respiratory tract infection, unspecified type documented in this encounter Results * SARS COV 2 (COVID-19)[Lab Collect] (12/18/2021) EXTERNAL SARS COV 2 Negative Negative [facility]QUEST NASOPHARYNGEAL 12/18/2021 us Mary [facility] MICROBIOLOGY - GENER AL ORDERABLES Final Result SUNQUEST documented in this encounter Visit Diagnoses Diagnosis Exposure to confirmed case of COVID-19 Upper respiratory tract infection, unspecified type documented in this encounter Additional Health Concerns Infection Onset Date Last Indicated Resolved Time COVID-19 Rule-Out 12/21/2021 12/18/2021 12/21/2021 10:11 AM EST Assessment Noted Time PHQ-9 Depression Total Score: 0 11/10/19 22 4:17 PM EST A Body Mass Index follow-up plan has been documented for the patient 12/17/2021 12:23 PM EST documented as of this encounter Care Teams Hog Ribber Relationship Specialty Start Date End Date Mary Yee APRN-CNP PCP - General Family Medicine 04/06/21 08/18/22 documented as of this encounter
--- OUTSIDE RECORDS SUMMARY | 2025-07-14 18:11 | XMS_ITS | Encounter Summary ---
Author Organization [employer] Address [facility] [place]-[id number] [address] [place] [address] Care Team Providers Care Surgical Device Sales Representative Name Role Phone Mary Yee APRN-FINISHER HAND Primary Care Provid er Encounter Details Date Type Department Care Team (Late st Contact Info) Description 11/04/2021 Orders Only [facility] [address] [facility] [place] [address] Mary Yee APRN-FINISHER HAND [address] [place] [address] Social History Tobacco Use Types Packs/Day Years [...] often do you attend chur ch or hindu services? More than 4 times per year [...] Answer Date Recorded Total Score 0 10/14/2021 [facility] [place] of Occupat ional Health - Occupational Stress [...] Recorded Do you need help finding a [facility] career [facility] and/or a training program? [...] Associated Diagnosis Comments GENERAL SLEEP STUDY Routine 11/04/2021 documented in this encounter Results * General sleep study (11/04/2021) us Mary [facility] ORDERAB LES Final Result MANUALLY TRANSCRIBED RESULTS documented in this encounter [...] documented as of this encounter Care Teams Surgical Device Sales Representative Relationship Specialty Start Date End Date Mary Yee APRN-CNP PCP - General Family Medicine 04/06/21 08/18/22 documented as of this encounter
[2025-07-14 18:16] VITALS: BP 137/82; PULSE 64; TEMP 36.7; O2SAT 97; BMI 29.8
--- NOTE | 2025-07-14 18:25 | ED.GENADUL1 ---
HPI HPI - General Adult General Chief complaint: Upper Respiratory Infection Stated complaint: FEVER, SORE THROAT Time Seen by Provider: 07/14/25 18:18 Source: patient Mode of arrival: walk-in Limitations: no limitations History of Present Illness HPI narrative: 34-year-old male presents to the emergency department for sore throat. He has had it for a week. He had a telehealth visit and was prescribed both Zithromax and doxycycline on the same day, as well as steroids. He has finished the Zithromax and has been taking the other medications. He is not better so he came in to get checked. He has been traveling a lot recently Related Data Home Medications ?Medication ?Instructions ?Recorded ?Confirmed dextroamphetamine-amphetamine 15 07/14/25 mg tablet prednisone 20 mg tablet mg 07/14/25 tizanidine 4 mg tablet mg 07/14/25 trazodone 100 mg tablet mg 07/14/25 Previous Rx's ?Medication ?Instructions ?Recorded prednisone 10 mg tablet See Rx Instructions .Route 07/02/24 .COMPLEX #30 tabs Allergies Allergy/AdvReac Type Severity Reaction Status Date / Time cefaclor (From Ceclor) Allergy Severe unknown Verified 07/14/25 18:21 Penicillins Allergy Severe unknown Verified 07/14/25 18:21 Opioid HPI Opioid Management Most Recent Opioid Data: Last Pain Scale 6 06/19/24, 11:21 Review of Systems ROS Narrative A ten point review of systems is negative except as noted above. PFSH PFS Social History Smoking status: Former smoker Little interest or pleasure in doing things: not at all Feeling down, depressed, or hopeless: not at all Exam Narrative Exam Narrative: Nurses note and vital signs reviewed and patient is not hypoxic. General: The patient appears well and in no apparent distress. Patient is resting comfortably on cart. Skin: Warm, dry, no pallor noted. There is no rash noted. Head: Normocephalic, atraumatic Eye: Normal conjunctiva, no drainage Ears, Nose, Mouth, and Throat: oral mucosa is moist. Nares patent. Uvula midline. No exudate. No pharyngeal erythema. No retropharyngeal swelling. No swelling to the floor of his mouth. Both TMs and external canals are normal. Minimal cerumen on each side. Cardiovascular: Regular Rate and Rhythm Respiratory: Patient is in no distress, no accessory muscle use, lungs are clear to auscultation, no wheezing, rales or rhonchi Back: non-tender GI: Soft and nontender Musculoskeletal: No joint swelling Neurological: A&O, normal speech Psychiatric: Cooperative Constitutional Vital Signs, click to edit/add: Last Vital Signs Temp 98.0 F 07/14/25 18:16 Pulse 64 07/14/25 18:16 Resp 18 07/14/25 18:16 BP 137/82 07/14/25 18:16 Pulse Ox 97 07/14/25 18:16 O2 Del Method Room Air 07/14/25 18:16 Course Vital Signs Vital signs: Vital Signs Temperature 98.0 F 07/14/25 18:16 Pulse Rate 64 07/14/25 18:16 Respiratory Rate 18 07/14/25 18:16 Blood Pressure 137/82 07/14/25 18:16 Pulse Oximetry 97 07/14/25 18:16 Oxygen Delivery Method Room Air 07/14/25 18:16 Temperature 98.0 F 07/14/25 18:16 Pulse Rate 64 07/14/25 18:16 Respiratory Rate 18 07/14/25 18:16 Blood Pressure 137/82 07/14/25 18:16 Pulse Oximetry 97 07/14/25 18:16 Oxygen Delivery Method Room Air 07/14/25 18:16 Medical Decision Making [facility] Narrative Medical decision making narrative: Tests are ordered and the patient is signed out to Dr. Parson at change of shift. Differential Diagnosis Differential Diagnosis: Viral pharyngitis, mono Lab Data Lab results reviewed: Yes I reviewed the patient's lab results Labs: Lab Results 07/14/25 Range/Units 18:35 WBC 5.4 (4.0-11.0) 10^3/uL RBC 4.59 L (4.70-6.10) 10^6/uL Hgb 14.7 (14.0-18.0) g/dL Hct 41.0 L (42.0-54.0) % MCV 89.3 (80.0-94.0) fL MCH 32.0 (25.9-34.0) pg MCHC 35.9 H (29.9-35.2) g/dL RDW 11.2 (11.0-15.0) % Plt Count 283 (150-450) 10^3/uL MPV 9.8 (9.5-13.5) fL Neut % (Auto) 63.7 (43.0-75.0) % Lymph % (Auto) 27.4 (20.5-60.0) % [place] % (Auto) 7.1 (1.7-12.0) % Eos % (Auto) 0.7 L (0.9-7.0) % Baso % (Auto) 0.7 (0.2-2.0) % Neut # (Auto) 3.4 (1.4-6.5) 10^3/uL Lymph # (Auto) 1.5 (1.2-3.8) 10^3/uL [place] # (Auto) 0.4 (0.3-0.8) 10^3/uL Eos # (Auto) 0.0 (0.0-0.7) 10^3/uL Baso # (Auto) 0.0 (0.0-0.1) 10^3/uL Abs Immat Gran (auto) 0.02 (0.00-0.03) 10^3/uL Imm/Tot Granulo (auto) 0.4 (0.0-0.5) % Discharge Plan Discharge Patient Disposition: Still a Patient
[2025-07-14 18:41] LABS: Hematocrit 41.0 % (42.0-54.0); Hemoglobin 14.7 g/dL (14.0-18.0); Immature Granulocytes Abs Auto 0.02 10^3/uL (0.00-0.03); Immature Granulocytes Pct Auto 0.4 % (0.0-0.5); Lymphocytes Absolute Auto 1.5 10^3/uL (1.2-3.8); Mean Corpuscular HGB Conc 35.9 g/dL (29.9-35.2); Mean Corpuscular Hemoglobin 32.0 pg (25.9-34.0); Mean Corpuscular Volume 89.3 fL (80.0-94.0); Platelet Count 283 10^3/uL (150-450); Red Blood Count 4.59 10^6/uL (4.70-6.10); White Blood Count 5.4 10^3/uL (4.0-11.0)
[2025-07-14 18:55] LABS: Anion Gap 10.6; Blood Urea Nitrogen 16.0 mg/dL (7.0-18.0); Calcium 9.0 mg/dL (8.5-10.1); Carbon Dioxide 27.6 mmol/L (21.0-32.0); Chloride 105 mmol/L (98-107); Estimated GFR (African America >60 (>=60 mL/min/1.73m^2); Estimated GFR (Non-African Ame >60 (>=60 mL/min/1.73m^2); Glucose 114 mg/dL (74-106); Mono Screen NEGATIVE (NEGATIVE); Potassium 4.2 mmol/L (3.5-5.1); Sodium 139 mmol/L (136-145)
[2025-07-14 19:35] VITALS: BP 146/73; PULSE 65; TEMP 37.1; O2SAT 98
== END 2025-07-14 19:38 | disposition home or self-care (01) ==
PROVIDERS: Emergency Provider Emergency Medicine; PCP Internal Medicine
DX: J06.9 Acute upper respiratory infection, unspecified (principal); J02.9 Acute pharyngitis, unspecified; B34.9 Viral infection, unspecified; Z88.0 Allergy status to penicillin; Z87.891 Personal history of nicotine dependence
CPT/HCPCS: 36415; 80048; 85025; 86308; 99283

== ENCOUNTER 2025-07-19 22:40 | Emergency (ER) | payer OTHER, SELFPAY ==
--- OUTSIDE RECORDS SUMMARY | 2023-08-31 08:45 | XMS_ITS | Continuity of Care Document ---
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 [address] [place] [address], [id number], [place]. tel:[phone] [facility], [address] [place] [address], [id number], tel:[phone] Dental Clinic Dental new (chief complaint)D ental new (chief complaint) Encounter for screening for dental disorders Katelynn Pascal. [address] [place] [address], [id number], [place]. tel:[phone] Family History Family Member Type Diagnosis Age At Onset Mother Problem Alive and well Father Problem Alive and well Payers Payer name Insurance type Covered constitution party ID Authoriza tion(s) D [facility] Medicaid [facility] [id number] D Medicaid Wrap - [facility] [id number] Social History Type Description Quantity Date Captured [...]
--- OUTSIDE RECORDS SUMMARY | 2024-07-31 10:30 | XMS_ITS ---
Author Organization [facility] in [place] Address [address] [place] [address] Care Team Providers Care Grinder Set Up Operator Universal Name Role Phone Vero Stern CNP Primary Care Provider U Tao Jeff Unavailable [phone] Allergies Allergen (clinical drug ingredient) Drug/Non Drug [...] Location Date Provider Diagnosis Pulmonary Medicine [place] [address] [place] [address] 07/31/2024 Tao Kwong Plan Of Treatment No Information Progress Notes * Bob DAVILA DDOB: [birth year] (34 yo M)Acc No.[id number]:07/31/2024 UNLOCKED PROGRESS NOTE Follow Up Patient: Bob RONQUILLO Provider: Enoc Kwong DO :1990 A ge:33 Y S ex:Male Date:07/31/2024 Address:[address] [facility], [id number] Pcp:Vero Stern CNP Subjective: * Chief Complaints: [...] DAY AT BEDTIME Oral , Taking Trelegy Ellipta(Ytfaqddombw-Acjfjwttm-Crruda) 200-62.5-25 MCG/ACT Aerosol Powder Breath Activated 1 [...] Reason: D rug declined by patient B AL ACTION PLAN Above Normal BMI Follow-up D ietary management education, guidance, and counseling * * Electronic signature of Chani Kwong DO on 07/19/2025 at 10:45 PM EDT Sign off status: Pending Visit Status: C ANC (Cancelled) * Provider: Enoc Kwong DO Date: 1 Generated for Carly benites/Jonny/Cara on: 0 07/19/2025 10:45 PM EDT
--- OUTSIDE RECORDS SUMMARY | 2024-11-27 05:00 | XMS_ITS ---
Author Organization [facility] in [place] Address [address] [place] [address] Care Team Providers Care Structural Iron Worker Name Role Phone Vero Stern CNP Primary Care Provider U Tao Jeff Unavailable [phone] REASON FOR VISIT 2 mos f/u Asthma Medications Medication SIG (Take, Route, Frequency, Duration) Notes Start Date End Date Status Trelegy Ellipta 200-62.5-25 MCG/ACT 1 puff Inhalation QD; Duration: 90 days Rinse after use Active traZODone HCl 100 MG TAKE 1 TABLET BY MO UT EVERY DAY AT BEDTIME Oral; Duration: 30 Days Active Gabapentin 800 MG Oral; Duration: 30 Days Active Ondansetron 8 MG Oral; Duration: 15 Days Active Omeprazole 40 MG Oral; Duration: 90 Days Active guaiFENesin-Codeine 100-10 MG/5ML 10mL for cough Orally Q12H; Duration: 120 days 03/06/2024 Not-Wesley ing Famotidine 20 MG Oral; Duration: 30 Days Active ALPRAZolam 0.25 MG Oral; Duration: 5 Days Active Albuterol Sulfate HFA 108 (90 Base) MCG/ACT INHALE 1 PUFF BY MOUTH EVERY 4 TO 6 HOURS NEEDED FOR BRONCHOSPASM Inhalation; Duration: 30 Days Active Ondansetron HCl 4 MG 1 tablet PRN nausea Orally Q6H; Duration: 10 days 03/06/2024 Not-Taking Advair Diskus 250-50 MCG/ACT Inhalation; Duration: 30 Days Not-Taking Encounters Encounter Location Date Provider Diagnosis Pul[facility] [place] [address] [facility] [place] [address] 11/27/2024 Tao Kwong Plan Of Treatment No Information Progress Notes * Bob DAVILA DDOB: [birth year] (34 yo M)Acc No.[id number]:11/27/2024 UNLOCKED PROGRESS NOTE Follow Up Patient: Bob RONQUILLO Provider: Enoc Kwong DO :1990 A ge:34 Y S ex:Male Date:11/27/2024 Address:[address] [facility], [id number] Pcp:Vero Stern CNP Subjective: * Chief Complaints: * 1 . 2 mos f/u Asthma. * Medical History: * Medications: T aking Albuterol Sulfate HFA 108 (90 Base) MCG/ACT Aerosol Solution INHALE 1 PUFF BY MOUTH EVERY 4 TO 6 HOURS NEEDED FOR BRONCHOSPASM Inhalation , Taking ALPRAZolam 0.25 MG Tablet Oral , Taking Famotidine 20 MG Tablet Oral , Taking Gabapentin 800 MG Tablet Oral , Taking Omeprazole 40 MG Capsule Delayed Release Oral , Taking Ondansetron 8 MG Tablet Disintegrating Oral , Taking traZODone HCl 100 MG Tablet TAKE 1 TABLET BY MOUTH EVERY DAY AT BEDTIME Oral , Taking Trelegy Ellipta(Qatmpybtpsx-Asordrszu-Boeazg) 200-62.5-25 MCG/ACT Aerosol Powder Breath Activated 1 puff Inhalation QD Rinse after use, Not-Taking/PRN Advair Diskus(Fluticasone-Salmeterol) 250-50 MCG/ACT Aerosol Powder Breath Activated Inhalation , Not-Taking/PRN guaiFENesin-Codeine 100-10 MG/5ML Solution 10mL for cough Orally Q12H , Not-Taking/PRN Ondansetron HCl 4 MG Tablet 1 tablet PRN nausea Orally Q6H Objective: * Vitals: Assessment: Plan: * Treatment: * * Electronic signature of Chani Kwong DO on 07/19/2025 at 10:46 PM EDT Sign off status: Pending Visit Status: R /S (Rescheduled) * Provider: Enoc Kwong DO Date: 0 11/27/2024 Generated for Carly benites/Jonny/Cara on: 0 07/19/2025 10:46 PM EDT
--- OUTSIDE RECORDS SUMMARY | 2025-01-07 13:52 | XMS_ITS ---
Author Name Auto Generated Organization OHIP Care Team Providers Care Final Inspector Name Role Phone BHARAT KEATING Attending Unavailable Vero Stern Attending Unavailable Tao Kwong Consulting Unavailable Rohrbacher, Vero Admitting Unavailable Rohrbacher, Vero Primary Care Unavailable Kenroy Erickson Admitting Unavailable Kenroy Erickson Attending Unavailable Horacerbacher, Vero Primary Care Unavailable Yessenia Mosher Admitting Unavailable Yessenia Mosher Attending Unavailable Horacerbacher, Vero Primary Care Unavailable Rich Cooper Admitting Unavailable Rich Cooper Attending Unavailable Horacerbacher, Vero Primary Care Unavailable Philip Gibson Admitting Unavailable Philip Gibson Attending Unavailable Horacerbacher, Vero Primary Care Unavailable ROHRBACHER, VERO Primary Care Unavailable VALENTINA CHILEL Attending Unavailable MILENA ROSADO Attending Unavailable HORACERBACHER, VERO Primary Care Unavailable PROBLEMS DATE TYPE CONDITION / CODE ATTENDING STATUS [facility] 11/20/2024 Unknown Chest pain, unsp ecified / R07.9(ICD-10) Kenroy Erickson [facility] 10/15/2024 Unknown Gastro-esophagea l reflux disease without esophagitis / K21.9(ICD-10) Philip Gibson [facility] 10/09/2024 Unknown Anxiety disorder , unspecified / F41.9(ICD-10) Yessenia Mosher [facility] 10/09/2024 Unknown Moderate persist ent asthma with (acute) exacerbation / J45.41(ICD-10) ASHLEE, MILENA [facility] 10/03/2024 Unknown Shortness of rena ath / R06.02(ICD-10) Rich Cooper [facility] 09/26/2024 Unknown Contact with and (suspected) exposure to infections with a predominantly sexual mode of transmission / Z20.2(ICD-10) Vero Stern [facility] PROCEDURES No Procedure Records Found RESULTS CT ABDOMEN PELVIS W CON Observed: 2024 3:45 PM Status: COMPLETED Source: [facility] [place] [address] CT Scan Report Signed Patient: Manuela Davila MR#: [id number] : 1990 Acct:[id number] Age/Sex: 34 / M ADM Date: 11/20/24 Loc: ER Room: Type: [facility] ER Attending Dr: Copies to: Kenroy Erickson DO Ordering Provider: Kenroy Erickson DO Date of Service: 11/20/24 CT/CT angio chest PE protocol: cp, sob ([id number]) CT/CT abdomen pelvis w con: elevated lipase, midline CP CTA Chest with PE protocol TECHNIQUE: Axial imaging with 2-D and 3-D reconstruction. 90cc of Isovue-[address] exam was performed using one or more the following dose reduction techniques: Automated exposure control, adjustment of the MA and/or Kv according to patient size, or use of the iterative reconstruction technique. History: Chest pain. Shortness of breath. Elevated lipase COMPARISON: None THYROID: Unremarkable TRACHEA AND BRONCHI: Patent ESOPHAGUS: Unremarkable. HEART: Within normal limits PERICARDIAL EFFUSION: None CORONARY ARTERY CALCIFICATION: None MEDIASTINUM: No adenopathy. No pneumoperitoneum. No mediastinal hematoma. PULMONARY JAVIER: No hilar mass or adenopathy is seen. THORACIC AORTA Unremarkable PULMONARY EMBOLUS: None LUNG NODULE None LUNGS: Lungs are clear PLEURAL EFFUSION: None PNEUMOTHORAX: No pneumothorax seen. CHEST WALL: No abnormality AXILLA: Unremarkable BONY STRUCTURES Intact UPPER ABDOMEN: Images of the upper abdomen are noncontributory. CT/CT angio chest PE protocol IMPRESSION: No acute pulmonary embolus. CT Abdomen and Pelvis withcontrast TECHNIQUE: Axial imaging with 2-D reconstruction.90 cc of Isovue-370. The CT exam was performed using one or more the following dose reduction techniques: Automated exposure control, adjustment of the MA and/or Kv according to patient size, or use of the iterative reconstruction technique. COMPARISON: 07/19/2023 History: Chest pain shortness of breath. Elevated lipase LIMITATIONS: None LOWER THORAX Unremarkable LIVER: Hepatic steatosis. GALLBLADDER: No gallbladder abnormality identified. BILE DUCTS: No dilatation SPLEEN: Unremarkable PANCREAS: Unremarkable ADRENAL GLANDS: Unremarkable KIDNEYS:Unremarkable AORTA: No abdominal aortic aneurysm identified. RETROPERITONEUM: No significant retroperitoneal abnormalities identified. MESENTERY:Unremarkable SMALL BOWEL: The small bowel loops are nondistended. APPENDIX: The appendix is normal. COLON: Unremarkable URINARY BLADDER: Urinary bladder is unremarkable. REPRODUCTIVE SYSTEM: Reproductive structures are unremarkable. PNEUMOPERITONEUM: None PERITONEAL FLUID:None BONY STRUCTURES: Unremarkable ABDOMINAL WALL: Unremarkable IMPRESSION: No acute findings. No CT findings of acute pancreatitis. Hepatic steatosis. Small hypodensity of the left lobe of liver likely benign and may represent cysts or focal fatty infiltration. No nephrolithiasis or obstructive uropathy. Impression dictated by: Dutch Nuñez M.D.11/20/2024 3:53 PM Dictation Location: [place] [address] Transcribed By: [facility] 11/20/24 155 Dictated By: Dutch Nuñez DO 11/20/24 1545 Signed By: <Electronically signed by Dutch Nuñez DO in OV> 11/20/24 1553 XR CHEST 2V* Observed: 11/20/2024 3:16 PM Status: COMPLETED Source: [facility] [place] [address] [place] [address] XRay Report Signed Patient: aMnuela Davila MR#: [id number] : 1990 Acct:[id number] Age/Sex: 34 / M ADM Date: 11/20/24 Loc: ER Room: Type: PRE ER Attending Dr: Copies to: Kenroy Erickson DO Ordering Provider: Kenroy Erickson DO Date of Service: 11/20/24 XR/XR chest 2V*: Chest Pain Chest 2 views CLINICAL HISTORY: Shortness of breath. Midsternal chest pain cough. COMPARISON: Chest 10/03/2024 FINDINGS: Heart normal in size. Lungs are clear. No free air. XR/XR chest 2V* IMPRESSION: NO ACUTE CARDIOPULMONARY ABNORMALITY. Impression dictated by: Finn Blum Jr., D.O.11/20/2024 3:16 PM Dictation Location: [facility]22 Transcribed By: [facility] 11/20/24 1516 Dictated By: Finn Blum Jr, DO 11/20/24 1516 Signed By: <Electronically signed by Finn Blum Jr, DO in OV> 11/20/241515 SCAN AND CBC Collected: 11/20/2024 2:19 PM Status: F Source: [facility] TYPE CODE TESTS RESULT OUT OF RANGE REFERENCE UNITS LAB WBC White Blood Count 6.1 Normal 4.1-10.5 10*3/uL LAB UNWBC Uncorrected WBC 6.1 Normal 4.1-10.5 10*3/uL LAB RBC Red Blood Count 5.04 Normal 3.90-5.60 10*6/u L LAB HGB Hemoglobin 15.4 Normal 13.0-17.0 g/dL LAB HCT Hematocrit 44.3 Normal 38.8-50.0 % LAB MCV Mean Corpuscular Volume 87.9 Normal 83.5-101 fL LAB MCH Mean Corpuscular Hemoglobin 30.5 Normal 27.5-35.2 pg LAB MCHC Mean Corpuscular HGB Conc 34.7 Normal 32.5-35.6 g/dL LAB RDW Red Cell Distribution Width 12.5 Normal 12.0-14.8 % LAB PLT Platelet Count 300 Normal 150-450 10*3/uL LAB MPV Mean Platelet Volume 8.6 Normal 6.6-10.1 fL LAB MDW Monocyte Distribution Width 18.90 Normal 0.00-20.00 % LAB NE% Neutrophils % (Auto) 55.2 . % LAB LY% Lymphocytes % (Auto) 33.5 . % LAB MO% Monocytes % (Auto) 9.1 . % LAB EO% Eosinophils % (Auto) 1.2 . % LAB BA% Basophils % (Auto) 1.0 . % LAB NRBC% NRBC% 0.1 Normal 0-0.5 /100{WBC } LAB NE# Neutrophils # (Auto) 3.4 Normal 1.8-7.7 10*3/uL LAB LY# Lymphocytes # (Auto) 2.1 Normal 1.00-4.8 10*3/uL LAB MO# Monocytes # (Auto) 0.6 Normal 0.0-0.8 10*3/uL LAB EO# Eosinophils # (Auto) 0.1 Normal 0.0-0.45 10*3/uL LAB BA# Basophils # (Auto) 0.1 Normal 0.0-0.2 10*3/uL Result Comment: PERFORMED BY : [place] [address] PATHOLOGIST [employer] WORK[employer] JOANNE ODEN M.D. LAB RM RBC Morphology Normal Normal LAB PLT EST Platelet Estimate Normal Normal LAB PLTM Platelet Morphology Normal Normal Result Comment: PERFORMED BY : [place] [address] PATHOLOGIST [employer] WORKER JOANNE ODEN M.D. Performed By: #### PT, CK, B MP, SCAN CBC, HS TROP, BNP, LIPASE, HEPATIC, PTT #### [address] HEPATIC PANEL Collected: 11/20/2024 2:19 PM Status: F Source: [facility] TYPE CODE TESTS RESULT OUT OF RANGE REFERENCE UNITS LAB TP Total Protein 7.3 Normal 6.4-8.9 g/dL LAB ALB Albumin Level 4.9 Normal 3.5-5.7 g/dL LAB GLOB Globulin 2.4 g/dL LAB AGRATIO Albumin/Globulin Ratio 2.0 LAB BILIT Bilirubin,Total 0.7 Normal 0.3-1.0 mg/dL LAB BILID Bilirubin,Direct 0.10 Normal 0.03-0.18 mg/dL LAB BILII Bilirubin,Indirect 0.6 mg/dL LAB AST Aspartate Amino Transferase 34 Normal 13-39 U/L LAB ALT Alanine Aminotransferase 75 High 7-52 U/L LAB ALP Alkaline Phosphatase 57 Normal 34-104 U/L Performed By: #### PT, CK, B MP, SCAN CBC, HS TROP, BNP, LIPASE, HEPATIC, PTT #### [facility] [address] [place] [id number] [facility] BASIC METABOLIC PANEL Collected: 11/20/2024 2:19 PM Status: F Source: [facility] TYPE CODE TESTS RESULT OUT OF RANGE REFERENCE UNITS LAB GLU Glucose 81 Normal 70-100 mg/dL Result Comment: Random Gluco se Reference Range is dependent on time and content of last meal. Glucose of more than 200 mg/dL in a nonstressed, ambulatory subject supports the diagnosis of Diabetes Mellitus. ADA recommended reference range LAB BUN Blood Urea Nitrogen 15 Normal 7-25 mg/dL LAB CREATT Creatinine 1.00 Normal 0.70-1.30 mg/dL LAB GFReNR Estimated GFR >60.0 mL/Min LAB NA Sodium 137 Normal 136-145 mmol/L LAB K Potassium 3.5 Normal 3.5-5.1 mmol/L LAB CL Chloride 103 Normal 98-107 mmol/L LAB CO2 Carbon Dioxide 23.2 Normal 21.0-31.0 mmol/L LAB GAP Anion Gap 14.3 Normal 6.0-15.0 meq/L LAB CA Calcium 9.4 Normal 8.6-10.3 mg/dL LAB CRCLPHA Creatinine Clr Calc Pharmacy 114.89 Performed By: #### PT, CK, B MP, SCAN CBC, HS TROP, BNP, LIPASE, HEPATIC, PTT #### [facility] [address] [place] [id number] [facility] LIPASE Collected: 2:19 PM Status: F Source: [facility] TYPE CODE TESTS RESULT OUT OF RANGE REFERENCE UNITS LAB LIPASE Lipase 112.0 High 11.0-82.0 U/L Result Comment: PERFORMED BY : [place] [address] PATHOLOGIST [employer] WORK[employer] JOANNE ODEN M.D. Performed By: #### PT, CK, B MP, SCAN CBC, HS TROP, BNP, LIPASE, HEPATIC, PTT #### [facility] [address] CREATINE KINASE Collected: 11/20/2024 2:19 PM Status : F Source: [facility] TYPE CODE TESTS RESULT OUT OF RANGE REFERENCE UNITS LAB CK Creatine Kinase 409 High 30-223 U/L Performed By: #### PT, CK, B MP, SCAN CBC, HS TROP, BNP, LIPASE, HEPATIC, PTT #### [facility] [address] TROPONIN I HIGH SENSITIVITY Collected: 11/20/2024 2:1 9 PM Status: F Source: [facility] TYPE CODE TESTS RESULT OUT OF RANGE REFERENCE UNITS LAB HS TROP Troponin I High Sensitivity 5 Normal 0-20 Result Comment: The Troponin units of report have been changed to meet the Chest Pain Accreditation requirement, element EC5.M1l2. Troponin units are changed from pg/ml to ng/L. Also, the decimal is removed and results are in whole numbers. PERFORMED BY: [place] [address] PATHOLOGIST [employer] WORK[employer] JOANNE ODEN M.D. Performed By: #### PT, CK, B MP, SCAN CBC, HS TROP, BNP, LIPASE, HEPATIC, PTT #### [place] [id number] [facility] B-TYPE NATRIURETIC PEPTIDE Collected: 11/20/2024 2:19 PM Status: F Source: [facility] TYPE CODE TESTS RESULT OUT OF RANGE REFERENCE UNITS LAB BNP B-Type Natriuretic Peptide 7.0 Normal 5-100 pg/mL Result Comment: PERFORMED BY : [place] [address] PATHOLOGIST [employer] WORKER JOANNE ODEN M.D. Performed By: #### PT, CK, B MP, SCAN CBC, HS TROP, BNP, LIPASE, HEPATIC, PTT #### [place] [id number] [facility] PROTHROMBIN TIME INR Collected: 11/20/2024 2:19 PM S tatus: F Source: [facility] TYPE CODE TESTS RESULT OUT OF RANGE REFERENCE UNITS LAB R PT Prothrombin Time 12.3 Normal 9.0-12.9 s Result Comment: A hematocrit value greater than 55% may lead to inaccurate results in coagulation testing. Patients having hematocrit values >55% require a special collection tube for coagulation studies. Please contact the laboratory at [phone] for redraw instructions. LAB INR INR 1.1 Result Comment: INR Therapeu tic Range A) Pre- and Peroperative OAT started two weeks before surgery. NOT HIP SURGERY: 1.5 - 2.5 HIP SURGERY: 2 - 3 B) Primary and secondary prevention of venous THROMBOSIS: 2 - 3 C) Active venous thrombosis, pulmonary embolism and prevention of recurrent venous thrombosis: 2 - 3 D) Prevention of arterial thromboembolism including patients with mechanical heart valves: 3 - 4.5 Performed By: #### PT, CK, B MP, SCAN CBC, HS TROP, BNP, LIPASE, HEPATIC, PTT #### [address] [address] [facility] PARTIAL THROMBOPLASTIN TIME Collected: 11/20/2024 2:1 9 PM Status: F Source: [facility] TYPE CODE TESTS RESULT OUT OF RANGE REFERENCE UNITS LAB PTT Partial Thromboplastin Time 29.6 Normal 25.1-36.5 s Result Comment: A hematocrit value greater than 55% may lead to inaccurate results in coagulation testing. Patients having hematocrit values >55% require a special collection tube for coagulation studies. Please contact the laboratory at [phone] for redraw instructions. PERFORMED BY: [place] [address] PATHOLOGIST [employer] WORK[employer] JOANNE ODEN M.D. Performed By: #### PT, CK, B MP, SCAN CBC, HS TROP, BNP, LIPASE, HEPATIC, PTT #### [facility] [address] [place] [address] [facility] ECG 12 LEAD ECG Observed: 11/20/2024 1:58 PM Status: COMPLETED Source: [facility] [place] Main [address] [address] Electrocardiograph Report Signed Patient: Manuela Davila MR#: [id number] : 1990 Acct:[id number] Age/Sex: 34 / M ADM Date: 11/20/24 Loc: ER Room: Type: [facility] ER Attending Dr: Ordering Provider: Kenroy Erikcson DO Date of Service: 11/20/24 ECG/ECG 12 lead ECG: Chest Pain Copies to: Test Reason : Blood Pressure : */* mmHG Vent. Rate : 83 BPM Atrial Rate : 83 BPM P-R Int : 134 ms QRS Dur : 88 ms QT Int : 364 ms P-R-T Axes : 63 92 45 degrees QTcB Int : 427 ms Normal sinus rhythm Rightward axis Confirmed by Kenroy ERICKSON DO ([id number]) on 11/20/2024 7:26:41 PM Referred By: Electronically Signed By: Kenroy ERICKSON DO Transcribed By: MUS Signed By Kenroy Erickson DO 0 11/20/241925 ECG 12 LEAD ECG Observed: 11/20/2024 12:47 PM Status: COMPLETED Source: [facility] [place] [address] Electrocardiograph Report Signed Patient: Manuela Davila MR#: [id number] : 1990 Acct:[id number] Age/Sex: 34 / M ADM Date: 11/20/24 Loc: ER Room: Type: [facility] ER Attending Dr: Ordering Provider: Kenroy Erickson DO Date of Service: 11/20/24 ECG/ECG 12 lead ECG: Chest Pain Copies to: Test Reason : Blood Pressure : 120/70 mmHG Vent. Rate : 81 BPM Atrial Rate : 81 BPM P-R Int : 132 ms QRS Dur : 86 ms QT Int : 372 ms P-R-T Axes : 60 82 27 degrees QTcB Int : 432 ms Sinus rhythm with marked sinus arrhythmia Confirmed by Kenroy ERICKSON DO ([id number]) on 11/20/2024 5:32:11 PM Referred By: Electronically Signed By: Kenroy ERICKSON DO Transcribed By: MUS Signed By Kenroy Erickson DO 0 11/20/24 173 COMPLETE BLOOD COUNT AUTO DIFF Collected: 10/09/2024 11:22 PM Status: F Source: [facility] TYPE CODE TESTS RESULT OUT OF RANGE REFERENCE UNITS LAB WBC White Blood Count 5.2 Normal 4.1-10.5 10*3/uL LAB UNWBC Uncorrected WBC 5.2 Normal 4.1-10.5 10*3/uL LAB RBC Red Blood Count 4.87 Normal 3.90-5.60 10*6/u L LAB HGB Hemoglobin 14.9 Normal 13.0-17.0 g/dL LAB HCT Hematocrit 43.4 Normal 38.8-50.0 % LAB MCV Mean Corpuscular Volume 89.1 Normal 83.5-101 fL LAB MCH Mean Corpuscular Hemoglobin 30.6 Normal 27.5-35.2 pg LAB MCHC Mean Corpuscular HGB Conc 34.4 Normal 32.5-35.6 g/dL LAB RDW Red Cell Distribution Width 12.4 Normal 12.0-14.8 % LAB PLT Platelet Count 267 Normal 150-450 10*3/uL LAB MPV Mean Platelet Volume 8.8 Normal 6.6-10.1 fL LAB MDW Monocyte Distribution Width 22.02 High 0.00-20.00 % Result Comment: For adults i n ED, MDW > 20.0 may be associated with a higher risk of sepsis during the first 12 hrs of hospital admission LAB NE% Neutrophils % (Auto) 80.9 . % LAB LY% Lymphocytes % (Auto) 15.8 . % LAB MO% Monocytes % (Auto) 2.0 . % LAB EO% Eosinophils % (Auto) 0.5 . % LAB BA% Basophils % (Auto) 0.8 . % LAB NRBC% NRBC% 0.1 Normal 0-0.5 /100{WBC } LAB NE# Neutrophils # (Auto) 4.2 Normal 1.8-7.7 10*3/uL LAB LY# Lymphocytes # (Auto) 0.8 Low 1.00-4.8 10*3/uL LAB MO# Monocytes # (Auto) 0.1 Normal 0.0-0.8 10*3/uL LAB EO# Eosinophils # (Auto) 0.0 Normal 0.0-0.45 10*3/uL LAB BA# Basophils # (Auto) 0.0 Normal 0.0-0.2 10*3/uL Result Comment: PERFORMED BY : [facility] [address] PATHOLOGIST [employer] WORKER JOANNE ODEN M.D. Performed By: #### PT, HS TR OP, BNP, CBC, CMP, MG #### [facility] [address] [place] [id number] [facility] COMPREHENSIVE METABOLIC PANEL Collected: 10/09/2024 1 1:22 PM Status: F Source: [facility] TYPE CODE TESTS RESULT OUT OF RANGE REFERENCE UNITS LAB GLU Glucose 158 High 70-100 mg/dL Result Comment: Random Gluco se Reference Range is dependent on time and content of last meal. Glucose of more than 200 mg/dL in a nonstressed, ambulatory subject supports the diagnosis of Diabetes Mellitus. ADA recommended reference range LAB BUN Blood Urea Nitrogen 12 Normal 7-25 mg/d L LAB CREATT Creatinine 0.96 Normal 0.70-1.30 mg/dL LAB GFReNR Estimated GFR >60.0 mL/Min LAB NA Sodium 139 Normal 136-145 mmol/L LAB K Potassium 3.8 Normal 3.5-5.1 mmol/L LAB CL Chloride 104 Normal 98-107 mmol/L LAB CO2 Carbon Dioxide 24.2 Normal 21.0-31.0 mmol/L LAB GAP Anion Gap 14.6 Normal 6.0-15.0 meq/L LAB CA Calcium 9.4 Normal 8.6-10.3 mg/dL LAB TP Total Protein 6.9 Normal 6.4-8.9 g/dL LAB ALB Albumin Level 4.6 Normal 3.5-5.7 g/dL LAB GLOB Globulin 2.3 g/dL LAB AGRATIO Albumin/Globulin Ratio 2.0 LAB BILIT Bilirubin,Total 0.5 Normal 0.3-1.0 mg/dL LAB AST Aspartate Amino Transferase 23 Normal 13-39 U/L LAB ALT Alanine Aminotransferase 46 Normal 7-52 U/L LAB ALP Alkaline Phosphatase 62 Normal 34-104 U/L LAB CRCLPHA Creatinine Clr C alc Pharmacy 120.63 Performed By: #### PT, HS TR OP, BNP, CBC, CMP, MG #### [facility] [address] [place] [id number] [facility] MAGNESIUM Collected: 11:22 PM Status: F Source: [facility] TYPE CODE TESTS RESULT OUT OF RANGE REFERENCE UNITS LAB MG Magnesium 1.8 Low 1.9-2.7 mg/dL Result Comment: PERFORMED BY : [address] [address] PATHOLOGIST [employer] WORKER JOANNE ODEN M.D. Performed By: #### PT, HS TR OP, BNP, CBC, CMP, MG #### [facility] [address] [place] [address] [facility] PROTHROMBIN TIME INR Collected: 11:22 PM Status: F Source: [facility] TYPE CODE TESTS RESULT OUT OF RANGE REFERENCE UNITS LAB R PT Prothrombin Time 11.2 Normal 9.0-12.9 s Result Comment: A hematocrit value greater than 55% may lead to inaccurate results in coagulation testing. Patients having hematocrit values >55% require a special collection tube for coagulation studies. Please contact the laboratory at [phone] for redraw instructions. LAB INR INR 1.0 Result Comment: INR Therapeu tic Range A) Pre- and Peroperative OAT started two weeks before surgery. NOT HIP SURGERY: 1.5 - 2.5 HIP SURGERY: 2 - 3 B) Primary and secondary prevention of venous THROMBOSIS: 2 - 3 C) Active venous thrombosis, pulmonary embolism and prevention of recurrent venous thrombosis: 2 - 3 D) Prevention of arterial thromboembolism including patients with mechanical heart valves: 3 - 4.5 PERFORMED BY: [place] [address] PATHOLOGIST [employer] WORKER JOANNE ODEN M.D. Performed By: #### PT, HS TR OP, BNP, CBC, CMP, MG #### [address] [address] [facility] B-TYPE NATRIURETIC PEPTIDE Collected: 10/09/2024 11:2 2 PM Status: F Source: [facility] TYPE CODE TESTS RESULT OUT OF RANGE REFERENCE UNITS LAB BNP B-Type Natriuretic Peptide 11.0 Normal 5-100 pg/mL Result Comment: PERFORMED BY : [address] [address] PATHOLOGIST [employer] WORKER JOANNE ODEN M.D. Performed By: #### PT, HS TR OP, BNP, CBC, CMP, MG #### [place] [id number] [facility] TROPONIN I HIGH SENSITIVITY Collected: 10/09/2024 11: 22 PM Status: F Source: [facility] TYPE CODE TESTS RESULT OUT OF RANGE REFERENCE UNITS LAB HS TROP Troponin I High Sensitivity 2.4 Normal 0.0-20.0 pg/mL Result Comment: PERFORMED BY : [place] [address] PATHOLOGIST [employer] WORKER JOANNE ODEN M.D. Performed By: #### PT, HS TR OP, BNP, CBC, CMP, MG #### [facility] [address] [place], [place] [id number] [facility] ECG 12 LEAD ECG Observed: 10/09/2024 10:44 PM Status: COMPLETED Source: [facility] [place] [address] Electrocardiograph Report Signed Patient: Manuela Davila MR#: [id number] : 1990 Acct:[id number] Age/Sex: 33 / M ADM Date: 10/09/24 Loc: ER Room: Type: [facility] ER Attending Dr: Ordering Provider: Yessenia Mosher DO Date of Service: 10/09/24 ECG/ECG 12 lead ECG: Chest Pain Copies to: Test Reason : Blood Pressure : 132/82 mmHG Vent. Rate : 78 BPM Atrial Rate : 78 BPM P-R Int : 150 ms QRS Dur : 94 ms QT Int : 380 ms P-R-T Axes : 60 73 58 degrees QTcB Int : 433 ms Normal sinus rhythm Normal ECG When compared with ECG of 03-Oct-2024 15:44, T wave inversion no longer evident in Inferior leads Confirmed by Delmy Hobbs MD ([id number]) on 10/10/2024 12:47:11 AM Referred By: Electronically Signed By: Delmy Hobbs MD Transcribed By: MUS Signed By Delmy Hobbs MD 09/23 06/16 0047 XR CHEST PORTABLE Observed: 10/09/2024 8:29 PM Status: F Source: [facility] ONE-VIEW CHEST RADIOGRAPH, 1 12/10/2023 7:34 PM EST COMPARISON: Chest, 09/11/2024 CLINICAL HISTORY: sob FINDINGS: No acute cardiopulmonary disease. No pulmonary edema, pneumothorax, or pleural effusion. Normal heart size. No acute osseous abnormality. IMPRESSION: No acute abnormality identified. Interpreted by: Monik Fortune MD Signed by: Monik Fortune MD 10/09/24 Final result TROPONIN Collected: 10/09/2024 8:21 PM Status: F Source: [facility] TYPE CODE TESTS RESULT OUT OF RANGE REFERENCE UNITS LAB HSTROP(LOINC) Troponin, High Sens <6 0-22 ng/L Result Comment: High Sensiti vity Troponin values cannot be compared with other Troponin methodologies. Performed By: #### TROPI ### # [facility] [address] [place] [address] [employer] Executive: Toy Zelaya MD CBC WITH DIFF Collected: 10/09/2024 7:17 PM Status: F Source: [facility] TYPE CODE TESTS RESULT OUT OF RANGE REFERENCE UNITS LAB WBC(LOINC) WBC Count 5.4 3.5-11.0 k/uL LAB RBC(LOINC) RBC Count 4.72 4.50-5.90 m/uL LAB HGB(LOINC) Hemoglobin 14.5 13.5-17.5 g/dL LAB HCT(LOINC) Hematocrit 39.8 Low 41.0-53.0 % LAB MCV(LOINC) MCV 84.3 80.0-100.0 fL LAB MCH(LOINC) MCH 30.7 26.0-34.0 pg LAB MCHC(LOINC) MCHC 36.4 31.0-37.0 g/dL LAB RDW(LOINC) RDW 10.9 Low 12.1-15.2 % LAB PLT(LOINC) Platelet Count 249 140-450 k/uL LAB MPVX(LOINC) MPV 10.2 6.0-12.0 fL LAB SEG(LOINC) Neutrophil (Seg) 43 39-75 % LAB LYM(LOINC) Lymphocyte 41 13-44 % LAB MON(LOINC) Monocyte 12 High 5-9 % LAB EO(LOINC) Eosinophil 3 0-5 % LAB BASO(LOINC) Basophil 1 0-2 % LAB IGRAN(LOINC) Immature Granulocyte 0 0-5 % LAB ASEG(LOINC) Abs.Neutrophil (Seg) 2.36 2.1-6.5 k/uL LAB ALYM(LOINC) Abs. Lymph 2.23 1.00-4.80 k/uL LAB AMONO(LOINC) Abs. Monocyte 0.65 0.00-1.00 k/u L LAB AEO(LOINC) Abs. Eosinophil 0.15 0.00-0.40 k/u L LAB ABASO(LOINC) Abs. Basophil 0.04 0.00-0.20 k/u L LAB AIGRAN(LOINC) Abs.Imm.Granuloc yte 0.00 0.00-0.30 k/uL Performed By: #### TROPI, DI ME, CDP, CP #### [facility] [address] [place] [address] [employer] Executive: Toy Zelaya MD COMP METABOLIC PROF Collected: 10/09/20 24 7:17 PM Status: F Source: [facility] TYPE CODE TESTS RESULT OUT OF RANGE REFERENCE UNITS LAB NA(LOINC) NA (Sodium) 138 135-144 mmol/L LAB K(LOINC) K (Potassium) 4.0 3.7-5.3 mmol/L LAB CL(LOINC) Chloride 99 98-107 mmol/L LAB HCO(LOINC) CO2 27 20-31 mmol/L LAB GAP(LOINC) Anion Gap 12 9-17 mmol/L LAB GLU(LOINC) Glucose 98 70-99 mg/dL LAB BUN(LOINC) BUN (Urea N) 10 6-20 mg/dL LAB CRE(LOINC) Creatinine 1.0 0.7-1.2 mg/dL LAB EGFR(LOINC) eGFR >90 >60 mL/min/1. 73m2 Result Comment: These results are not intended for use in patients <18 years of age. eGFR results are calculated without a race factor using the 2020 CKD-EPI equation. Careful clinical correlation is recommended, particularly when comparing to results calculated using previous equations. The CKD-EPI equation is less accurate in patients with extremes of muscle mass, extra-renal metabolism of creatine, excessive creatine ingestion, or following therapy that affects renal tubular secretion. LAB BUNCRE(LOINC) BUN/CRE Ratio 10 9-20 LAB CA(LOINC) Calcium 9.2 8.6-10.4 mg/dL LAB TP(LOINC) Protein, Total 6.5 6.4-8.3 g/dL LAB ALB(LOINC) Albumin 4.3 3.5-5.2 g/dL LAB TBIL(LOINC) Bilirubin, Total 0.4 0.3-1.2 mg/dL LAB ALP(LOINC) Alkaline Phos 73 40-129 U/L LAB ALT(LOINC) ALT 47 High 5-41 U/L LAB AST(LOINC) AST 24 <40 U/L Performed By: #### TROPI, DI ME, CDP, CP #### [facility] [address] [place] [address] Scout Executive: Toy Zelaya MD TROPONIN Collected: 10/09/2024 7:17 PM Status: F Source: [facility] TYPE CODE TESTS RESULT OUT OF RANGE REFERENCE UNITS LAB HSTROP(LOINC) Troponin, High Sens 6 0-22 ng/L Result Comment: High Sensiti vity Troponin values cannot be compared with other Troponin methodologies. Performed By: #### TROPI, JARON ME, CDP, CP #### [facility] [address] [place] [address] Scout Executive: Toy Zelaya MD D-DIMER TEST Collected: 7:17 PM Status: F Source: [facility] TYPE CODE TESTS RESULT OUT OF RANGE REFERENCE UNITS LAB DIME(LOINC) D-Dimer Test 0.35 0.00-0.59 ug/mL FEU Result Comment: When combined with a low clinical probability, a D dimer value of <0.50 ug/mL FEU is considered negative for DVT and PE (negative predictive value of 98%, sensitivity of 97%). If this test is not being used to help rule out DVT and PE, then the following reference range should be utilized: 0.00 - 0.59 ug/mL FEU. The D-Dimer assay is intended for use as an aid in the diagnosis of venous thromboembolism (DVT and PE) and the results should be interpreted in conjunction with the patient's medical history, clinical presentation, and other findings. Elevated levels of D-dimer activity can be seen in any state of coagulation activation and is not recommended in patients with therapeutic dose anticoagulant therapy for >24 hours, fibrinolytic therapy within the previous 7 days, trauma or surgery within the previous 4 weeks, disseminated malignancies, aortic aneurysm, sepsis, severe infections, pneumonia, severe skin infections, liver cirrhosis, advanced age, coronary disease, diabetes, and . A very low percentage of patients with DVT may yield D-dimer results below the cutoff of 0.5 ug/mL FEU. This is known to be more prevalent in patients with distal DVT. Performed By: #### JARON DE OLIVEIRA ME, CDP, CP #### [facility] [address] [place] [address] Scout Executive: Toy Zelaya MD XR CHEST 2V* Observed: 10/03/2024 4:47 PM Status: COMPLETED Source: [facility] Main [address] [address] XRay Report Signed Patient: Manuela Davila MR#: [id number] : 1990 Acct:[id number] Age/Sex: 33 / M ADM Date: 10/03/24 Loc: ER Room: Type: [facility] ER Attending Dr: Copies to: Rich Cooper PA-C Ordering Provider: Rich Cooper PA-C Date of Service: 10/03/24 XR/XR chest 2V*: Shortness of Breath/Dyspnea Chest 2 views CLINICAL HISTORY: Cough shortness of breath chest pain COMPARISON: Chest 01/15/2024 FINDINGS: Heart normal in size. Lungs are clear. No free air. XR/XR chest 2V* IMPRESSION: NO ACUTE CARDIOPULMONARY ABNORMALITY. Impression dictated by: Finn Blum Jr., D.OFabrice10/03/2024 4:47 PM Dictation Location: [id number] Transcribed By: [facility] 10/03/241646 Dictated By: Finn Blum Jr, DO 10/03/241646 Signed By: <Electronically signed by Finn Blum Jr, DO in OV> 10/03/241646 COMPLETE BLOOD COUNT AUTO DIFF Collected: 10/03/2024 4:16 PM Status: F Source: [facility] TYPE CODE TESTS RESULT OUT OF RANGE REFERENCE UNITS LAB WBC White Blood Count 4.2 Normal 4.1-10.5 10*3/uL LAB UNWBC Uncorrected WBC 4.2 Normal 4.1-10.5 10*3/uL LAB RBC Red Blood Count 4.82 Normal 3.90-5.60 10*6/u L LAB HGB Hemoglobin 14.7 Normal 13.0-17.0 g/dL LAB HCT Hematocrit 42.7 Normal 38.8-50.0 % LAB MCV Mean Corpuscular Volume 88.6 Normal 83.5-101 fL LAB MCH Mean Corpuscular Hemoglobin 30.6 Normal 27.5-35.2 pg LAB MCHC Mean Corpuscular HGB Conc 34.5 Normal 32.5-35.6 g/dL LAB RDW Red Cell Distribution Width 12.4 Normal 12.0-14.8 % LAB PLT Platelet Count 247 Normal 150-450 10*3/uL LAB MPV Mean Platelet Volume 8.7 Normal 6.6-10.1 fL LAB MDW Monocyte Distribution Width 18.13 Normal 0.00-20.00 % LAB NE% Neutrophils % (Auto) 36.4 . % LAB LY% Lymphocytes % (Auto) 45.4 . % LAB MO% Monocytes % (Auto) 13.6 . % LAB EO% Eosinophils % (Auto) 3.6 . % LAB BA% Basophils % (Auto) 1.0 . % LAB NRBC% NRBC% 0.1 Normal 0-0.5 /100{WBC } LAB NE# Neutrophils # (Auto) 1.5 Low 1.8-7.7 10*3/uL LAB LY# Lymphocytes # (Auto) 1.9 Normal 1.00-4.8 10*3/uL LAB MO# Monocytes # (Auto) 0.6 Normal 0.0-0.8 10*3/uL LAB EO# Eosinophils # (Auto) 0.2 Normal 0.0-0.45 10*3/uL LAB BA# Basophils # (Auto) 0.0 Normal 0.0-0.2 10*3/uL Result Comment: PERFORMED BY : [facility] [place] [address] PATHOLOGIST [employer]ING [employer]ILITY WORKER JOANNE ODEN M.D. Performed By: #### Radha LOPEZ MP, HS TROP, BNP, CBC #### [facility] [address] [id number] [facility] COMPREHENSIVE METABOLIC PANEL Collected: 10/03/2024 4 :16 PM Status: F Source: [facility] TYPE CODE TESTS RESULT OUT OF RANGE REFERENCE UNITS LAB GLU Glucose 92 Normal 70-100 mg/dL Result Comment: Random Gluco se Reference Range is dependent on time and content of last meal. Glucose of more than 200 mg/dL in a nonstressed, ambulatory subject supports the diagnosis of Diabetes Mellitus. ADA recommended reference range LAB BUN Blood Urea Nitrogen 17 Normal 7-25 mg/d L LAB CREATT Creatinine 1.13 Normal 0.70-1.30 mg/dL LAB GFReNR Estimated GFR >60.0 mL/Min LAB NA Sodium 138 Normal 136-145 mmol/L LAB K Potassium 4.1 Normal 3.5-5.1 mmol/L LAB CL Chloride 103 Normal 98-107 mmol/L LAB CO2 Carbon Dioxide 27.5 Normal 21.0-31.0 mmol/L LAB GAP Anion Gap 11.6 Normal 6.0-15.0 meq/L LAB CA Calcium 9.5 Normal 8.6-10.3 mg/dL LAB TP Total Protein 6.5 Normal 6.4-8.9 g/dL LAB ALB Albumin Level 4.2 Normal 3.5-5.7 g/dL LAB GLOB Globulin 2.3 g/dL LAB AGRATIO Albumin/Globulin Ratio 1.8 LAB BILIT Bilirubin,Total 0.5 Normal 0.3-1.0 mg/dL LAB AST Aspartate Amino Transferase 24 Normal 13-39 U/L LAB ALT Alanine Aminotransferase 55 High 7-52 U/L LAB ALP Alkaline Phosphatase 51 Normal 34-104 U/L Result Comment: PERFORMED BY : [place] [address] PATHOLOGIST MOLDING UTILITY WORKER JOANNE ODEN M.D. Performed By: #### Radha LOPEZ MP, HS TROP, BNP, CBC #### [facility] [address] [id number] [facility] D-DIMER HIGH SENSITIVITY Collected: 10/03/2024 4:16 P M Status: F Source: [facility] TYPE CODE TESTS RESULT OUT OF RANGE REFERENCE UNITS LAB DDIMER D-Dimer High Sensitivity <200 Normal 0-243 ng/mL Result Comment: The referenc e range for D-dimer is <243 ng/mL D-dimer units. D-dimer results must be used in conjunction with a clinical pretest probability (PTP) assessment model for deep vein thrombosis (DVT) and pulmonary embolism (PE). Results <230 ng/mL d-dimer units can be used as a negative predictor in patients with low or moderate probability for DVT/PE. Results above the exclusion threshold of 230 ng/ml D-dimer units for DVT/PE may indicate the need for further diagnostic testing. D-Dimer can be increased in hospitalized patients due to co-morbid conditions. A hematocrit value greater than 55% may lead to inaccurate results in coagulation testing. Patients having hematocrit values >55% require a special collection tube for coagulation studies. Please contact the laboratory at [phone] for redraw instructions. PERFORMED BY: [place] [id number] PATHOLOGIST MOLDING UTILITY WORKER JOANNE ODEN M.D. Performed By: #### DDIMER, C MP, HS TROP, BNP, CBC #### [place] [id number] [facility] B-TYPE NATRIURETIC PEPTIDE Collected: 10/03/2024 4:16 PM Status: F Source: [facility] TYPE CODE TESTS RESULT OUT OF RANGE REFERENCE UNITS LAB BNP B-Type Natriuretic Peptide 30.0 Normal 5-100 pg/mL Result Comment: PERFORMED BY : [place] [id number] PATHOLOGIST MOLDING UTILITY WORKER JOANNE ODEN M.D. Performed By: #### DDIMER, C MP, HS TROP, BNP, CBC #### [address] [address] [place] TROPONIN I HIGH SENSITIVITY Collected: 10/03/2024 4:1 6 PM Status: F Source: [facility] TYPE CODE TESTS RESULT OUT OF RANGE REFERENCE UNITS LAB HS TROP Troponin I High Sensitivity 2.6 Normal 0.0-20.0 pg/mL Result Comment: PERFORMED BY : [place] [id number] PATHOLOGIST MOLDING UTILITY WORKER JOANNE ODEN M.D. Performed By: #### JOHN C MP, HS TROP, BNP, CBC #### [facility] [address] [place] [address] RESPIRATORY (UPPER) PANEL, PCR Observed: 10/03/2024 4:08 PM Status: F Source: [facility] Adenovirus Not detected Bordetella parapertussis Not detected Chlamydia pneumoniae Not detected Coronavirus 229E Not detected Coronavirus HKU1 Not detected Coronavirus NL63 Not detected Coronavirus OC43 Not detected Influenza A Not detected Influenza B Not detected Human Metapneumovirus Not detected Mycoplasma pneumoniae Not detected Parainfluenza Virus 1 Not detected Parainfluenza Virus 2 Not detected Parainfluenza Virus 3 Not detected Parainfluenza Virus 4 Not detected Bordetella pertussis-ptxP Not detected Human Rhino/Enterovirus Not detected Resp. Syncytial Virus Not detected COVID-19 Detected/Not Detected Not detected Blank Space FLUA TEST INCLUDES Influenza A tests for the following clinically FLUA TEST INCLUDES significant subtypes: FLUA TEST INCLUDES - Influenza A FLUA TEST INCLUDES - Influenza A H1 FLUA TEST INCLUDES - Influenza A H1 2009 FLUA TEST INCLUDES - Influenza A H3 Blank Space PERFORMED BY: [place] [address] PATHOLOGIST MOLDING UTILITY WORKER JOANNE ODEN M.D. Performed By: #### RESP PANE L UPP., BIOFIRECOVNOTDE #### [address] BIOFIRE NOT DETECTED Collected: 10/03/2024 4:08 PM S tatus: F Source: [facility] TYPE CODE TESTS RESULT OUT OF RANGE REFERENCE UNITS LAB BIOFIRECOVNOTDE BioFire Not Detected Not Detected Not Detecte Result Comment: This is a du plicate RP2.1 COVID (PCR) result to be used for statistical tracking purpose only. PERFORMED BY: [place] [address] PATHOLOGIST MOLDING UTILITY WORKER JOANNE ODEN M.D. Performed By: #### RESP PANE L UPP., BIOFIRECOVNOTDE #### [facility] [address] [place] [address] ECG 12 LEAD ECG Observed: 10/03/2024 3:44 PM Status: COMPLETED Source: [facility] [place] Main [place] [address] [place] [address] Electrocardiograph Report Signed Patient: Manuela Davila MR#: [id number] : 1990 Acct:[id number] Age/Sex: 33 / M ADM Date: 10/03/24 Loc: ER Room: Type: [facility] ER Attending Dr: Ordering Provider: Rich Cooper PA-C Date of Service: 10/03/2409/16/1604 ECG/ECG 12 lead ECG: Shortness of Breath/Dyspnea Copies to: Test Reason : Blood Pressure : 161/79 mmHG Vent. Rate : 86 BPM Atrial Rate : 86 BPM P-R Int : 144 ms QRS Dur : 88 ms QT Int : 340 ms P-R-T Axes : 40 96 -10 degrees QTcB Int : 406 ms Normal sinus rhythm Rightward axis Confirmed by Delmy Hobbs MD ([id number]) on 10/03/2024 4:51:30 PM Referred By: Electronically Signed By: Delmy Hobbs MD Transcribed By: MUS Signed By Delmy Hobbs MD 09/23 11/16 2746 COMPLETE BLOOD COUNT AUTO DIFF Collected: 09/26/2024 3:18 PM Status: F Source: [facility] TYPE CODE TESTS RESULT OUT OF RANGE REFERENCE UNITS LAB WBC White Blood Count 4.5 Normal 4.1-10.5 10*3/uL LAB UNWBC Uncorrected WBC 4.5 Normal 4.1-10.5 10*3/uL LAB RBC Red Blood Count 4.68 Normal 3.90-5.60 10*6/u L LAB HGB Hemoglobin 14.2 Normal 13.0-17.0 g/dL LAB HCT Hematocrit 41.7 Normal 38.8-50.0 % LAB MCV Mean Corpuscular Volume 89.1 Normal 83.5-101 fL LAB MCH Mean Corpuscular Hemoglobin 30.3 Normal 27.5-35.2 pg LAB MCHC Mean Corpuscular HGB Conc 34.0 Normal 32.5-35.6 g/dL LAB RDW Red Cell Distribution Width 12.3 Normal 12.0-14.8 % LAB PLT Platelet Count 273 Normal 150-450 10*3/uL LAB MPV Mean Platelet Volume 8.8 Normal 6.6-10.1 fL LAB NE% Neutrophils % (Auto) 33.2 . % LAB LY% Lymphocytes % (Auto) 49.0 . % LAB MO% Monocytes % (Auto) 11.4 . % LAB EO% Eosinophils % (Auto) 5.0 . % LAB BA% Basophils % (Auto) 1.4 . % LAB NRBC% NRBC% 0.1 Normal 0-0.5 /100{WBC} LAB NE# Neutrophils # (Auto) 1.5 Low 1.8-7.7 10*3/uL LAB LY# Lymphocytes # (Auto) 2.2 Normal 1.00-4.8 10*3/uL LAB MO# Monocytes # (Auto) 0.5 Normal 0.0-0.8 10*3/uL LAB EO# Eosinophils # (Auto) 0.2 Normal 0.0-0.45 10*3/uL LAB BA# Basophils # (Auto) 0.1 Normal 0.0-0.2 10*3/uL Result Comment: PERFORMED BY : [place] [address] PATHOLOGIST MOLDING UTILITY WORKER JOANNE ODEN M.D. Performed By: #### CBC #### [place] [address] [place] #### ANCA, ASPERGDID, IGE #### [facility] , ASPERGILLIS ROBI NATARAJAN Collected: 09/26/2024 3:18 PM Sta tus: F Source: [facility] TYPE CODE TESTS RESULT OUT OF RANGE REFERENCE UNITS LAB ASPFUM Aspergillus Fumigatus Antibody Negative Neg:<1:1 LAB ASPFLA Aspergillus Flavus Negative Neg:<1:1 LAB ASPNIG Aspergillus Niger Negative Neg:<1:1 Result Comment: Performed at : [address] [id number] Scout Executive: Lupe Monaco MD, Phone: [phone] Performed By: #### CBC #### [address] #### ANCA, ASPERGDID, IGE #### [facility] , IMMUNOGLOBULIN E Collected: 09/26/2024 3:18 PM Statu s: F Source: [facility] TYPE CODE TESTS RESULT OUT OF RANGE REFERENCE UNITS LAB IGE Immunoglobulin E 50 6-495 [IU]/mL Result Comment: Performed at : [address] [id number] Scout Executive: Lupe Monaco MD, Phone: [phone] Performed By: #### CBC #### [address] #### ANCA, ASPERGDID, IGE #### [facility] , ANTINEUTROPHIL CYTOPLASMIC AB Collected: 09/26/2024 3 :18 PM Status: F Source: [facility] TYPE CODE TESTS RESULT OUT OF RANGE REFERENCE UNITS LAB CANCA Cytoplasmic (C-ANCA) <1 Neg:<1:20 LAB PANCA Perinuclear (P-ANCA) <1 Neg:<1:20 Result Comment: The presenc e of positive fluorescence exhibiting P-ANCA or C-ANCA patterns alone is not specific for the diagnosis of Nicolas's Granulomatosis (WG) or microscopic polyangiitis. Decisions about treatment should not be based solely on ANCA IFA results. The International ANCA Group Consensus recommends follow up testing of positive sera with both MN- 3 and MPO-ANCA enzyme immunoassays. As many as 5% serum samples are positive only by EIA. Ref. AM J Clin Pathol 1999;111:507-513. LAB ATYP PANCA Atypical pANCA <1 Neg:<1:20 Result Comment: The atypical pANCA pattern has been observed in a significant percentage of patients with ulcerative colitis, primary sclerosing cholangitis and autoimmune hepatitis. Performed at: - [facility] [address] [id number] Scout Executive: Ryan Ortega PhD, Phone: [phone] PERFORMED BY: [place] [address] PATHOLOGIST MOLDING UTILITY WORKER JOANNE ODEN M.D. Performed By: #### CBC #### [place] [address] [place] #### ANCA, ASPERGDID, IGE #### [facility] , CHLAMYDIA/GC/TRICH DANILO Collected: 09/26 8:40 AM Status: F Source: [facility] Order Comment: CALLBACK SENT TO OFFICE 10/04/24 TO SEE IF THEY WANT TO CALL PATIENT TO RECOLLECT APTIMA SWAB FOR HSV 1/2 TYPE CODE TESTS RESULT OUT OF RANGE REFERENCE UNITS LAB CHLAM DANILO. Chlamydia Trachomotis, DANILO Negative Negative LAB GC DANILO. Neisseria Gonorrhoeae, DANILO Negative Negative LAB TRICH DANILO Trichomonas DANILO Negative Negative Result Comment: Performed at : =G - [facility] [address] [id number] Scout Executive: Shayy Mckeon MD, Phone: [phone] Performed By: #### GCCHLAMTR I, UREA MYCO HOMIN #### [facility] , UREA/MYCOPLASMA HOMINIS CULT Collected: 09/26/2024 8: 40 AM Status: F Source: [facility] Order Comment: CALLBACK SENT TO OFFICE 10/04/24 TO SEE IF THEY WANT TO CALL PATIENT TO RECOLLECT APTIMA SWAB FOR HSV 1/2 TYPE CODE TESTS RESULT OUT OF RANGE REFERENCE UNITS LAB UREAMYCOURELYTI Ureaplasma Urelyticum Positive Abnormal Alert Negative LAB UREAMYCOHOMINIS Mycoplasma hominis Negative Negative Result Comment: Performed at : - [facility] [address] [id number] Scout Executive: Lupe Monaco MD, Phone: [phone] PERFORMED BY: [address] [address] PATHOLOGIST MOLDING UTILITY WORKER JOANNE ODEN M.D. Performed By: #### GCCHLAMTR I, UREA MYCO HOMIN #### [facility] , XR CHEST PORTABLE Observed: 09/11/2024 6:25 PM Status: F Source: [facility] EXAM: XR CHEST PORTABLE HISTORY: Shortness of Breath COMPARISON: CT chest from 01/18/2024. TECHNIQUE: Portable chest done at 4:43 PM. FINDINGS: Trachea, mediastinum and heart size are unremarkable. No infiltrate or nodule or effusion or pneumothorax is noted. Diaphragm and bony elements are intact. IMPRESSION: Nonacute portable chest. Interpreted by: Darvin Palacio DO Signed by: Darvin Palacio DO 09/11/24 Final result SARS-COV-2 Collected: 5:01 PM Status: F Source: [facility] TYPE CODE TESTS RESULT OUT OF RANGE REFERENCE UNITS LAB COVR(LOINC) SARS-CoV-2,R apid Not Detected NOTDET Result Comment: Rapid NAAT: The specimen is NEGATIVE for SARS-CoV-2, the novel coronavirus associated with COVID-19. The ID NOW COVID-19 assay is designed to detect the virus that causes COVID-19 in patients with signs and symptoms of infection who are suspected of COVID-19. An individual without symptoms of COVID-19 and who is not shedding SARS-CoV-2 virus would expect to have a negative (not detected) result in this assay. Negative results should be treated as presumptive and, if inconsistent with clinical signs and symptoms or necessary for patient management, should be tested with an alternative molecular assay. Negative results do not preclude SARS-CoV-2 infection and should not be used as the sole basis for patient management decisions. Methodology: Isothermal Nucleic Acid Amplification Performed By: #### COVRB ### # [facility] [address] [place] [address] Scout Executive: Toy Zelaya MD CBC WITH DIFF Collected: 09/11/2024 4:45 PM Status: F Source: [facility] TYPE CODE TESTS RESULT OUT OF RANGE REFERENCE UNITS LAB WBC(LOINC) WBC Count 6.2 3.5-11.0 k/uL LAB RBC(LOINC) RBC Count 4.52 4.50-5.90 m/uL LAB HGB(LOINC) Hemoglobin 13.8 13.5-17.5 g/dL LAB HCT(LOINC) Hematocrit 39.2 Low 41.0-53.0 % LAB MCV(LOINC) MCV 86.7 80.0-100.0 fL LAB MCH(LOINC) MCH 30.5 26.0-34.0 pg LAB MCHC(LOINC) MCHC 35.2 31.0-37.0 g/dL LAB RDW(LOINC) RDW 11.0 Low 12.1-15.2 % LAB PLT(LOINC) Platelet Count 220 140-450 k/uL LAB MPVX(LOINC) MPV 10.3 6.0-12.0 fL LAB SEG(LOINC) Neutrophil (Seg) 47 39-75 % LAB LYM(LOINC) Lymphocyte 36 13-44 % LAB MON(LOINC) Monocyte 13 High 5-9 % LAB EO(LOINC) Eosinophil 3 0-5 % LAB BASO(LOINC) Basophil 1 0-2 % LAB IGRAN(LOINC) Immature Granulocyte 0 0-5 % LAB ASEG(LOINC) Abs.Neutrophil (Seg) 2.92 2.1-6.5 k/uL LAB ALYM(LOINC) Abs. Lymph 2.27 1.00-4.80 k/uL LAB AMONO(LOINC) Abs. Monocyte 0.83 0.00-1.00 k/u L LAB AEO(LOINC) Abs. Eosinophil 0.16 0.00-0.40 k/u L LAB ABASO(LOINC) Abs. Basophil 0.05 0.00-0.20 k/u L LAB AIGRAN(LOINC) Abs.Imm.Granuloc yte 0.00 0.00-0.30 k/uL Performed By: #### TROPI, BN P, DIME, CDP, BMP #### [facility] [address] [place] [address] Scout Executive: Toy Zelaya MD BASIC METABOLIC PROF Collected: 024 4:45 PM Status: F Source: [facility] TYPE CODE TESTS RESULT OUT OF RANGE REFERENCE UNITS LAB NA(LOINC) NA (Sodium) 135 135-144 mmol/L LAB K(LOINC) K (Potassium) 3.6 Low 3.7-5.3 mmol/L LAB CL(LOINC) Chloride 101 98-107 mmol/L LAB HCO(LOINC) CO2 22 20-31 mmol/L LAB GAP(LOINC) Anion Gap 12 9-17 mmol/L LAB GLU(LOINC) Glucose 101 High 70-99 mg/dL LAB BUN(LOINC) BUN (Urea N) 10 6-20 mg/dL LAB CRE(LOINC) Creatinine 0.8 0.7-1.2 mg/dL LAB EGFR(LOINC) eGFR >90 >60 mL/min/1. 73m2 Result Comment: These results are not intended for use in patients <18 years of age. eGFR results are calculated without a race factor using the 2020 CKD-EPI equation. Careful clinical correlation is recommended, particularly when comparing to results calculated using previous equations. The CKD-EPI equation is less accurate in patients with extremes of muscle mass, extra-renal metabolism of creatine, excessive creatine ingestion, or following therapy that affects renal tubular secretion. LAB BUNCRE(LOINC) BUN/CRE Ratio 13 9-20 LAB CA(LOINC) Calcium 9.3 8.6-10.4 mg/dL Performed By: #### TROPI, BN P, DANIEL, CDP, BMP #### [facility] [address] [place] [address] Scout Executive: Toy Zelaya MD BRAIN NATRI. PEPTIDE Collected: 024 4:45 PM Status: F Source: [facility] TYPE CODE TESTS RESULT OUT OF RANGE REFERENCE UNITS LAB PBNP(LOINC) Pro-BNP 104 <300 pg/mL Result Comment: An age-independent cutoff point of 300 pg/ml has a 98% negative predictive value excluding acute heart failure. Performed By: #### TROPI, BN P, DIME, CDP, BMP #### [facility] [address] [place] [address] Scout Executive: Toy Zelaya MD TROPONIN Collected: 09/11/2024 4:45 PM Status: F Source: [facility] TYPE CODE TESTS RESULT OUT OF RANGE REFERENCE UNITS LAB HSTROP(LOINC) Troponin, High Sens 7 0-22 ng/L Result Comment: High Sensiti vity Troponin values cannot be compared with other Troponin methodologies. Performed By: #### NELSY DE OLIVEIRA PDANIEL, SHELLEY, RAYA #### [facility] [address] [place] [address] Scout Executive: Toy Zelaya MD D-DIMER TEST Collected: 4 4:45 PM Status: F Source: [facility] TYPE CODE TESTS RESULT OUT OF RANGE REFERENCE UNITS LAB DANIEL(LOINC) D-Dimer Test <0.27 0.00-0.59 ug/mL FEU Result Comment: When combined with a low clinical probability, a D dimer value of <0.50 ug/mL FEU is considered negative for DVT and PE (negative predictive value of 98%, sensitivity of 97%). If this test is not being used to help rule out DVT and PE, then the following reference range should be utilized: 0.00 - 0.59 ug/mL FEU. The D-Dimer assay is intended for use as an aid in the diagnosis of venous thromboembolism (DVT and PE) and the results should be interpreted in conjunction with the patient's medical history, clinical presentation, and other findings. Elevated levels of D-dimer activity can be seen in any state of coagulation activation and is not recommended in patients with therapeutic dose anticoagulant therapy for >24 hours, fibrinolytic therapy within the previous 7 days, trauma or surgery within the previous 4 weeks, disseminated malignancies, aortic aneurysm, sepsis, severe infections, pneumonia, severe skin infections, liver cirrhosis, advanced age, coronary disease, diabetes, and . A very low percentage of patients with DVT may yield D-dimer results below the cutoff of 0.5 ug/mL FEU. This is known to be more prevalent in patients with distal DVT. Performed By: #### YULIAINELSY P, DANIEL, SHELLEY, BMP #### [facility] [address] [place] [address] Scout Executive: Toy Zelaya MD ALLERGIES DATE TYPE / CODE NAME / CODE REACTION SEVERITY SOURCE 09/26/2024 Drug Allergy/[id number] 02(SNOMED CT) penicillin G/[id number](RXNORM) Hives Unknown [facility] ENCOUNTERS ADMIT/DISCHARGE ACCOUNT NUMBER ADMITTING ENCOUNTER CLASS LOCATION SOURCE 01/07/2025/01/08/20 [id number] Ambulatory Building:[facility] EPIC 11/20/2024/11/20/19 [id number] [facility] 10/15/2024/10/15/20 24 [id number] [facility] 10/09/2024/10/10/20 24 [id number] [facility] 10/09/2024/10/09/20 24 [id number] Emergency Building:WED Room: OTFBed: BRANDEE [facility] 10/03/2024/10/03/20 24 [id number] [facility] 09/26/2024/09/26/20 24 [id number] [facility]ero Stern [facility] 09/11/2024/09/11/20 [id number] Emergency Building:WED Room: 05Bed: 05 [facility] PAYERS ENCOUNTER GUARANTOR PAYER SUBSCRIBER SOURCE 01/07/2025 MANUELA PAZOB: [place] [address]Lfl: (HP) Primary Insurance:[facility] MEDICAIDPolicy Number: [id number] Date:2023-10-24 MANUELA PAZOB: [id number] [place] [address] [facility] EPIC 11/20/2024 Manuela [address] [address]Hun: (HP) Primary Insurance:[employer] MedicaidPolicy Number: [id number] Date:2111-23-57Xsbingo d MCPPO [address] [place] [address]XB: Manuela PazOB: [id number], [place] [address]Pap: () [facility] 11/20/2024 Secondary Insurance:Self PayPolicy Number: Effective Date:2024-11-20 NOT GIVENUNK [facility] 10/15/[address], [place] [address]Hcc: () Primary Insurance:[facility] MedicaidPolicy Number: [id number] Date:7367-61-71Ycwmdmq d MCPPO [address] [address]DV: Manuela PazOB: [id number], [place] [address]Ynq: () [facility] 10/15/2024 Secondary Insurance:Self PayPolicy Number: Effective Date:2024-10-11 NOT GIVENUNK [facility] 10/09/[address], [place] [address]Fep: () Primary Insurance:[facility] MedicaidPolicy Number: [id number] Date:4823-72-30Fsiguvp d [facility] [address] [address]UH: Manuela PazOB: [id number], [place] [address]Ruc: () [facility] 10/09/2024 Secondary Insurance:Self PayPolicy Number: Effective Date:2024-10-09 NOT GIVENUNK [facility] 10/09/20[address] MAN[address]A PAZOB: [address], [place] [address]Cab: () Primary Insurance:[facility] PLPolicy Number: [id number] Date:[id number] [address]BH: MANUELA PAZOB: [id number], [place] [address]Gfm: () [facility] 10/03/[address] [place] [address]Kzy: () Primary Insurance:[employer] MedicaidPolicy Number: [id number] Date:0596-09-06Kekydxz[address] [address]BB: Manuela Go AshlyOB: [id number] [place] [address], [place] [address]Rwp: () [facility] 10/03/2024 Secondary Insurance:Self PayPolicy Number: Effective Date:2024-10-03 NOT GIVENAdena [facility] 09/26/[address] [place], [place] [address]Fyf: () Primary Insurance:[employer] MedicaidPolicy Number: [id number] Date:1534-35-54Gbxre[address] [address]JN: Manuela PazOB: [id number] [place], [place] [address]Obg: () [facility] 09/26/2024 Secondary Insurance:Self PayPolicy Number: Effective Date:2024-09-26 NOT GIVENAdena [facility] 09/11/2024 MR. MANUELA PAZOB: [address], [place] [address]Fal: () Primary Insurance:[facility] PLPolicy Number: [id number] Date:9231-18-61[address] [place] [address]TG: MANUELA PAZOB: [id number] [address] [address]Cgn: () [facility]
--- OUTSIDE RECORDS SUMMARY | 2025-02-12 04:00 | XMS_ITS ---
Author Organization [facility] in [place] Address [address] [place] [address] Care Team Providers Care Design Printing Machine Set Up Operator Name Role Phone Vero Stern CNP Primary Care Provider U Tao Jeff Unavailable [phone] Allergies Allergen (clinical drug ingredient) Drug/Non Drug [...] Encounter Location Date Provider Diagnosis Pulmonary Medicine [place] [address] [place] [address] 02/12/2025 Tao Kwong Plan Of Treatment No Information Procedure Notes * Category Sub-Category Detail Notes PFT Data: 10/04/2024 - [facility] -FEV1/FVC: 71%-FEV1: 86%-FVC: 97%-LIU70-58%: Positive-RV: 107%-T%-DLCO: 78% Progress Notes * Bob DAVILA DDOB: [birth year] (34 yo M)Acc No.[id number]:02/12/2025 UNLOCKED PROGRESS NOTE Follow Up Patient: Bob RONQUILLO Provider: Enoc Kwong DO :1990 A ge:34 Y S ex:Male Date:02/12/2025 Address:[address] [facility] Pcp:Vero Stern [employer]IL[employer] Subjective: * Chief Complaints: * 1 . [...] Tablet Disintegrating Oral , Taking Spiriva Respimat(Tiotropium Alderson Monohydrate) 1.25 MCG/ACT Aerosol Solution 2 puffs Inhalation QD , Taking Symbicort(Budesonide-Formoterol Fumarate) 160-4.5 MCG/ACT Aerosol 2 puffs Inhalation BID Rinse after use, Taking traZODone HCl 100 MG Tablet TAKE 1 TABLET BY MOUTH EVERY DAY AT BEDTIME Oral , Taking Trelegy Ellipta(Mtwspjblnnq-Pudniqaka-Jkzoqr) 200-62.5-25 MCG/ACT Aerosol Powder Breath Activated 1 [...] TB -FEV1/FVC: 71% -FEV1: 86% -FVC: 97% -DDC73-32%: Positive -RV: 107% -T% -DLCO: 78%. * [...] Reason: D rug declined by patient B NM ACTION PLAN Above Normal BMI Follow-up D ietary management education, guidance, and counseling * * Electronic signature of Chani Kwong DO on 07/19/2025 at 10:45 PM EDT Sign off status: Pending Visit Status: N /S N/C (No Show/No Charge) * Provider: Enoc Kwong DO Date: 0 02/12/2025 Generated for Carly benites/Jonny/Milagrositting on: 0 07/19/2025 10:45 PM EDT
--- OUTSIDE RECORDS SUMMARY | 2025-07-19 22:45 | XMS_ITS | Clinical Summary ---
Author Organization [facility] Address [address] [place] [address] Care Team Providers Care Radon Inspector Name Role Phone Vero Stern CHECK SCALER Primary Care Provider Allergies Active Allergy Reactions [...] Plan of Treatment Not on file Insurance [facility] MEDICAID Care Teams Radon Inspector Relationship Specialty Start Date End Date Vero Stern NP [address] [place] [address] PCP - General Family Medicine 03/26/24
--- OUTSIDE RECORDS SUMMARY | 2025-07-19 22:45 | XMS_ITS | Clinical Summary ---
Author Organization [facility] Address [place]-[id number] [address] [place] [address] Care Team Providers Care Slip Feeder Name Role Phone Unavailable Primary Care Provider [...] declined 03/25/2022 How often do you attend worship or synagogue serv ices? Patient declined 03/25/2022 Do you belong to any clubs o r organizations such as worship groups, unions, fraternal or athletic groups, or [...] Answer Date Recorded Total Score 22 03/25/2022 [facility] of Occupat ional Health - Occupational Stress [...] Recorded Do you need help finding a [facility] career center and/or a training program? No [...] 06/24/2025 Medical Devices Not on file Insurance [facility] MEDICAID
--- OUTSIDE RECORDS SUMMARY | 2025-07-19 22:45 | XMS_ITS | Encounter Summary ---
Author Organization [facility] Address [facility] [id number] [address] [place] [address] Care Team Providers Care Steam Locomotive Firer/Fireman Name Role Phone Mary Yee APRN-ECHOCARDIOGRAPHY RADIOLOGY TECHNOLOGIST Primary Care Provid er Encounter Details Date Type Department Care Team (Late st Contact Info) Description 04/28/2021 Orders Only [facility] [address] [facility] [place] [address] Gin Ballard MA Blood tests for routine [...] A1C 4.9 % SUNQUEST 04/21/2021 Mary Yee [facility] BLOOD ORDERABLES Final Result Performing Organization Address City/[facility]/ZIP Co de Phone Number SUNQUEST * TSH (04/21/2021) External Tsh 3.935 SUNQUEST 04/21/2021 Mary Yee [facility] BLOOD ORDERABLES Final Result Performing Organization Address [facility]/ZIP Co de Phone Number SUNQUEST * Lipid profile (04/21/2021) External Cholesterol 224 SUNQUEST External Hdl Cholesterol 49 SUNQUEST External Ldl (Calc) 151 SUNQUEST External Triglycerides 120 SUNQUEST External Very Low Lipoprotein 24 SUNQUEST 04/21/2021 Mary Yee SHEET METAL ENGINEER[facility] B[facility] ORDERABLES Final Result SUNQUEST [...] Non Amer >60 SUNQUEST 04/21/2021 Mary Yee APRN-[facility] BLOOD ORDERABLES Edited Result - Final SUNQUEST * CBC auto differential (04/21/2021) External Wbc Count 4.9 SUNQUEST External Rbc Count 4.94 SUNQUEST External Hemoglobin 15.3 SUNQUEST External Hematocrit Hct 43.7 SUNQUEST External Mcv 88.5 SUNQUEST External MCH 31.0 SUNQUEST External Mchc 35.0 SUNQUEST External Rdw 11.9 SUNQUEST External Platelet Count 268 SUNQUEST External Mpv 10.5 SUNQUEST 04/21/2021 Mary Yee [facility] BLOOD ORDERABLES Final Result Performing Organization Address City/[facility]/ZIP Co de Phone Number SUNQUEST documented [...] documented as of this encounter Care Teams Steam Locomotive Firer/Fireman Relationship Specialty Start Date End Date Mary Yee APRN-CNP PCP - General Family Medicine 04/06/21 08/18/22 documented as of this encounter
--- OUTSIDE RECORDS SUMMARY | 2025-07-19 22:45 | XMS_ITS | Encounter Summary ---
Author Organization [facility] Address [address] [facility] [place] [address] Care Team Providers Care Territory Sales Consultant Name Role Phone Vero Stern NP Primary Care Provider Reason for Visit * Reason Comments Med Refill Encounter Details Date Type Department Care Team (Late st Contact Info) Description 09/06/2024 Refill [facility] [address] [facility] [address] [place] [address] Nicole Rey MD [address] [facility] [address] [place] [address] LPRD (laryngopharyngeal reflux disease) Social History Tobacco [...] obstruction documented in this encounter Care Teams Territory Sales Consultant Relationship Specialty Start Date End Date Vero Stern NP [address] [facility] [address] [address] [place], [place] [phone] PCP - General Family Medicine 03/26/24 documented as of this encounter
--- OUTSIDE RECORDS SUMMARY | 2025-07-19 22:45 | XMS_ITS | Clinical Summary ---
Author Organization [facility] Address [address] [place], [place] [address] Care Team Providers Care Quality Tech Name Role Phone Vero Stern RUBBER GOODS CUTTER FINISHER Unavailable [phone] Social History Tobacco Use Types Packs/Day Years Used Date Smoking Tobacco: Never Assessed PHQ-2 Answer Date Recorded PHQ-2 score 0 12/21/2021 Area Deprivation Index Answer Date Larry rded National Score (1-100), lower number is lower ri sk 83 02/06/2025 State Score (1-10), lower number is lower risk 7 02/06/2025 Data from: https://www.neighborhoodatlas.medicine.[facility].edu/. Last address used for calculation [facility] Be Spotted 02/06/2025 Sex and Gender Information Value Date [...] B Vaccine Completed 07/31/2020, 03/20/2020, 02/21/2020 Insurance [facility] [address] [address] [facility] MEDICAID [facility] Care Teams Quality Tech Relationship Specialty Start Date End Date Vero Stern NP [address] [place] [address] Nurse Practitioner 09/11/24
--- OUTSIDE RECORDS SUMMARY | 2025-07-19 22:45 | XMS_ITS | Patient Health Record ---
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) Active confirmed Plan Of Treatment No Information Insurance Providers Payer Name Payer Address Payer Phone Subscriber Number Group Number Insured Name Patient Relationship to Insured Coverage Start Date Coverage End Date [employer] [address] [address] [place] [address] [id number] MANUELA CHAIDEZ Self - patient is the insured Medical (General) History Medical History History ICD Code Erectile Dysfunction Asthma Depression Anxiety Attention deficit disorder, unspecified hyperactivity presence F98.8 Sleep Apnea Surgical History Surgery Date(Month/Year) Inguinal Hernia Repair Hernia Repair Hospitalization History Reason Date(Month/Year) per above surgical list
--- OUTSIDE RECORDS SUMMARY | 2025-07-19 22:45 | XMS_ITS | Clinical Summary ---
Author Organization [facility] Address [address], [address] [place] [address] Care Team Providers Care Freelance Makeup Artist Name Role Phone Vero Stern APRN - INFORMATICS SPECIALIST Primary Care Pro vider Allergies Active [...] patient's age to complete this topic Insurance [facility] [place] Care Teams Freelance Makeup Artist Relationship Specialty Start Date End Date Vero Stern APRN - CNP [address] [place] [address] PCP - General 09/11/24
--- OUTSIDE RECORDS SUMMARY | 2025-07-19 22:46 | XMS_ITS | Encounter Summary ---
Author Organization [employer] Address [facility] [place]-[id number] [address] [place] [address] Care Team Providers Care Busboy Name Role Phone Mary Yee APRN-MAINTENANCE REPAIRER Primary Care Provid er Encounter Details Date Type Department Care Team (Late st Contact Info) Description 09/30/2021 Orders Only [facility] [address] [facility] [place] [address] Kellee Frias CMA Cough with exposure to [...] often do you attend chur ch or zoroastrianism services? More than 4 times per year 05/18/2021 Do you belong to any clubs o r organizations such as scientologist groups, unions, fraternal or athletic groups, or [...] Answer Date Recorded Total Score 0 07/06/2021 [facility] of Occupat ional Health - Occupational Stress [...] Negative SUNQUEST NASOPHARYNGEAL 09/28/2021 us Mary Yee APRN-MAINTENANCE REPAIRER MICROBIOLOGY - GENER AL ORDERABLES Edited Result [...] documented as of this encounter Care Teams Busboy Relationship Specialty Start Date End Date Mary Yee APRN-MAINTENANCE REPAIRER PCP - General Family Medicine 04/06/21 08/18/22 documented as of this encounter
--- OUTSIDE RECORDS SUMMARY | 2025-07-19 22:46 | XMS_ITS | Encounter Summary ---
Author Organization [facility] Address [facility] [place] [place][id number] [address] [place] [address] Care Team Providers Care Video Editing Internship Name Role Phone Mary Yee APRN-CUT IN STATION OPERATOR Primary Care Provid er Encounter Details Date Type Department Care Team (Late st Contact Info) Description 10/21/2021 Orders Only [facility] [address] [facility] [place] [address] External, Scanning Provider Social History Tobacco Use [...] often do you attend chur ch or scientology services? More than 4 times per year 05/18/2021 Do you belong to any clubs o r organizations such as catholic groups, unions, fraternal or athletic groups, or [...] Answer Date Recorded Total Score 0 10/14/2021 [facility] [place] of Occupat ional Health - Occupational Stress [...] Recorded Do you need help finding a [facility] and/or a training program? [...] ORDERABL ES Final Result Performing Organization Address City/[facility]/ZIP Co de Phone Number MANUALLY TRANSCRIBED RESULTS * General sleep study (10/21/2021) us Scanning Provider External SLEEP CENTER ORDERABL ES Final Result Performing Organization Address [facility] Co de Phone Number MANUALLY TRANSCRIBED RESULTS [...] documented as of this encounter Care Teams Video Editing Internship Relationship Specialty Start Date End Date Mary Yee, SOCIAL SCIENCES CHAIR-CUT IN STATION OPERATOR PCP - General Family Medicine 04/06/21 08/18/22 documented as of this encounter
--- OUTSIDE RECORDS SUMMARY | 2025-07-19 22:46 | XMS_ITS | Patient Health Record ---
Author Organization [facility] Address [address] [facility] [place] [address] Care Team Providers Care Facility Coordinator Name Role Phone SANTY OBRIEN Unavailable [phone] Yu Ventura Unavailable [phone] Reason For Referral Reason 10/11 spoke with [...] health and behavioral disorders (Z13.30) Referral Organization [facility] Referring Provider First Name SANTY Referring Provider Last Name MICAH Referring Provider Speciality Family [facility] icine Referred Provider Specialty Behavioral H ealth Referral Priority Routine Plan Of Treatment No Information Insurance Providers Payer Name Payer Address Payer Phone Subscriber Number Group Number Insured Name Patient Relationship to Insured Coverage Start Date Coverage End Date [facility] Medicaid [address] [place] [address] [id number] MANUELA CHAIDEZ Self - patient is the insured 4 [facility] Medicaid [address] [place] [address] [id number] KAYLYNNANDREZEW Self - patient is the insured 4
--- OUTSIDE RECORDS SUMMARY | 2025-07-19 22:47 | XMS_ITS | Encounter Summary ---
Author Organization [facility] [employer] [facility] Address [id number] [address] [place] [address] Care Team Providers Care Finance Clerk Name Role Phone Mary Yee APRN-PALLETISER OPERATOR Primary Care Provid er Encounter Details Date Type Department Care Team (Late st Contact Info) Description 12/21/2021 Orders Only [facility] [address] [place] [address] Kellee Frias CMA Exposure to confirmed case [...] often do you attend chur ch or church services? More than 4 times per year 05/18/2021 Do you belong to any clubs o r organizations such as restorationist groups, unions, fraternal or athletic groups, or [...] Answer Date Recorded Total Score 0 11/10/2021 [facility] [place] of Occupat ional Health - Occupational Stress [...] documented as of this encounter Care Teams Finance Clerk Relationship Specialty Start Date End Date Mary Yee APRN-CNP PCP - General Family Medicine 04/06/21 08/18/22 documented as of this encounter
--- OUTSIDE RECORDS SUMMARY | 2025-07-19 22:47 | XMS_ITS | Encounter Summary ---
Author Organization [employer] [facility] [employer] Address [facility][id number] [address] [place] [address] Care Team Providers Care Coal Pipeline Operator Name Role Phone Mary Yee APRN-ANIMAL RIDES MANAGER Primary Care Provid er Encounter Details Date Type Department Care Team (Late st Contact Info) Description 12/16/2021 Telephone [facility] [address] [place] [address] Kellee Frias CMA Social History Tobacco Use [...] often do you attend chur ch or evangelical services? More than 4 times per year 05/18/2021 Do you belong to any clubs o r organizations such as episcopalian groups, unions, fraternal or athletic groups, or [...] Answer Date Recorded Total Score 0 11/10/2021 [facility] of Occupat ional Health - Occupational Stress [...] Recorded Do you need help finding a [facility] and/or a training program? No [...] documented as of this encounter Care Teams Coal Pipeline Operator Relationship Specialty Start Date End Date Mary Yee, RAQUEL-ANIMAL RIDES MANAGER PCP - General Family Medicine 04/06/21 08/18/22 documented as of this encounter
--- OUTSIDE RECORDS SUMMARY | 2025-07-19 22:47 | XMS_ITS | Encounter Summary ---
Author Organization [facility] Address [address] [place] [address] Phone Care Team Providers Care Surgical Technologist Name Role Phone Unavailable Primary Care Provider Unavailabl e Reason for Referral * Imaging (Routine) - Authorized Specialty Diagnoses / Procedures Referred By Conthonorio t Referred To Contact Radiology Diagnoses Other hypertrophic cardiomyopathy (Multi) Procedures MR cardiac morphology and function w and wo IV contrast Bebo Reagan MD [address] as of 04/23/18 [place] [address] Phone: tel: fax: Referral ID Status Reason Start Date Expiration Date Visits Requested Visits Authorized [id number] Authorized Perform Procedure 01/23/2024 01/22/2025 1 1 Encounter Details Date Type Department Care Team (Latest Contact Info) Description 01/23/2024 Transcribe Orders [facility] [address] [place] [address] Bebo Reagan MD [address] [place] [...] Declan Sanders 04/05/2024 1:46 PM Dictation workstation: [id number] [facility] 04/05/2024 1:46 PM EDT Interpreted By: Declan Sanders, STUDY: MR CARDIAC RESONANCE IMAGING FOR VELOCITY FLOW MAPPING; MR CARDIAC MORPHOLOGY AND FUNCTION W AND WO IV CONTRAST; 04/04/2024 3:17 pm INDICATION: Signs/Symptoms:HOCM; Signs/Symptoms:.. This study is performed to assess myocardial viability and damage, and to quantitate left ventricular and valvular function. COMPARISON: None. ACCESSION NUMBER(S): [id number]; [id number] ORDERING CLINICIAN: BEBO REAGAN TECHNIQUE: Balderrama 1.5 [...] and valvular function. COMPARISON: None. ACCESSION NUMBER(S): [id number]; [id number] ORDERING CLINICIAN: BEBO REAGAN TECHNIQUE: Balderrama 1.5 [...] Declan Sanders 04/05/2024 1:46 PM Dictation workstation: [id number] us Bebo Reagan MD IMG MRI PROCEDURES Fay javed Result documented in this encounter Visit Diagnoses Diagnosis Other hypertrophic cardiomyopathy (Multi)- Primary Other hypertrophic cardiomyopathy Other hypertrophic cardiomyopathy (Multi) Other hypertrophic cardiomyopathy documented in this encounter
--- OUTSIDE RECORDS SUMMARY | 2025-07-19 22:47 | XMS_ITS | Encounter Summary ---
Author Organization [employer] Address [id number] [address] [place] [address] Care Team Providers Care Nail Artist Name Role Phone Mary Yee APRN-FISHER TERRAPIN Primary Care Provid er Encounter Details Date Type Department Care Team (Late st Contact Info) Description 12/17/2021 Telephone [facility] [address] [place] [address] Gin Ballard MA Social History Tobacco Use [...] often do you attend chur ch or jewish services? More than 4 times per year 05/18/2021 Do you belong to any clubs o r organizations such as religious groups, unions, fraternal or athletic groups, or [...] Answer Date Recorded Total Score 0 11/10/2021 [facility] [place] of Occupat ional Health - Occupational Stress [...] Recorded Do you need help finding a [facility] and/or a training [...] documented as of this encounter Care Teams Nail Artist Relationship Specialty Start Date End Date Mary Yee, BILLING CLERK-FISHER TERRAPIN PCP - General Family Medicine 04/06/21 08/18/22 documented as of this encounter
--- OUTSIDE RECORDS SUMMARY | 2025-07-19 22:47 | XMS_ITS | Encounter Summary ---
Author Organization [employer] Address [id number] [address] [place] [address] Care Team Providers Care Pyridine Operator Name Role Phone Unavailable Primary Care Provider Unavailabl e Encounter Details Date Type Department Care Team (Late st Contact Info) Description 08/19/2022 Telephone [facility] [address] [place] [phone] Gin Ballard MA Social History Tobacco Use [...] declined 03/25/2022 How often do you attend spiritism or roman catholic serv ices? Patient declined 03/25/2022 Do you belong to any clubs o r organizations such as spiritism groups, unions, fraternal or athletic groups, or [...] Answer Date Recorded Total Score 22 03/25/2022 [facility] of Occupat ional Health - Occupational [...] Recorded Do you need help finding a [facility] career center and/or a training program? [...] I removed your name, he moved to [place], [place] documented in this encounter Plan of [...]
--- OUTSIDE RECORDS SUMMARY | 2025-07-19 22:47 | XMS_ITS | Encounter Summary ---
Author Organization [facility] [employer] Sys [employer] Address [id number] [address] [place] [address] Care Team Providers Care Garment Turner Name Role Phone Mary Yee APRN-EVENT SPECIALIST Primary Care Provid er Encounter Details Date Type Department Care Team (Late st Contact Info) Description 11/04/2021 Orders Only [facility] [address] [place] [address] Mary Yee APRN-EVENT SPECIALIST [address] [place] [address] Social History Tobacco Use Types Packs/Day Years [...] often do you attend chur ch or hinduism services? More than 4 times per year 05/18/2021 Do you belong to any clubs o r organizations such as orthodoxy groups, unions, fraternal or athletic groups, or [...] Answer Date Recorded Total Score 0 10/14/2021 [facility] [place] of Occupat ional Health - Occupational Stress [...] Recorded Do you need help finding a [facility] and/or a training program? [...] documented as of this encounter Care Teams Garment Turner Relationship Specialty Start Date End Date Mary Yee APRN-CNP PCP - General Family Medicine 04/06/21 08/18/22 documented as of this encounter
--- OUTSIDE RECORDS SUMMARY | 2025-07-19 22:47 | XMS_ITS | Encounter Summary ---
Author Organization [employer] Address [id number] [address] [place] [address] Care Team Providers Care Business Performance Specialist Name Role Phone Mary Yee APRN-REHABILITATION CASE COORDINATOR Primary Care Provid er Encounter Details Date Type Department Care Team (Late st Contact Info) Description 07/06/2021 Telephone [facility] [address] [place] [address] Kellee Frias CMA Social History Tobacco Use [...] any clubs o r organizations such as hoahaoism groups, unions, fraternal or athletic groups, or [...] Answer Date Recorded Total Score 0 07/06/2021 [facility] [place] of Occupat ional Health - Occupational Stress [...] Recorded Do you need help finding a [facility] career center and/or a training program? [...] documented as of this encounter Care Teams Business Performance Specialist Relationship Specialty Start Date End Date Mary Yee APRN-CNP PCP - General Family Medicine 04/06/21 08/18/22 documented as of this encounter
--- OUTSIDE RECORDS SUMMARY | 2025-07-19 22:47 | XMS_ITS | Clinical Summary ---
Author Organization [facility] Address [address] [place] [address] Phone Care Team Providers Care Rod Finisher Name Role Phone Unavailable Primary Care Provider [...]
--- OUTSIDE RECORDS SUMMARY | 2025-07-19 22:47 | XMS_ITS | Encounter Summary ---
Author Organization [facility] Address [facility][id number] [address] [place] [address] Care Team Providers Care Backup Administrative Coordinator Name Role Phone Unavailable Primary Care Provider Unavailabl e Encounter Details Date Type Department Care Team (Late st Contact Info) Description 03/28/2024 Telephone [facility] [address] [place] [address] Jason Cee MD PhD [address] RETIRED 05/23/2024 [place] [address] Social History Tobacco Use Types Packs/Day Years [...] declined 03/25/2022 How often do you attend taoism or amish serv ices? Patient declined 03/25/2022 Do you belong to any clubs o r organizations such as taoism groups, unions, fraternal or athletic groups, or [...] Answer Date Recorded Total Score 22 03/25/2022 [facility] [place] of Occupat ional Health - Occupational Stress [...] encounter Miscellaneous Notes * Telephone Encounter - Vreo Joaquin - 03/28/2024 3:50 PM EDT Called [...]
--- OUTSIDE RECORDS SUMMARY | 2025-07-19 22:47 | XMS_ITS | Patient Health Record ---
Author Organization [facility] Address [address] [place] [address] Care Team Providers Care Procurement Internship Name Role Phone Vero Stern CNP Primary Care Provider U annalisaryan Tao Kwong Unavailable [phone] Allergies Allergen (clinical drug ingredient) Drug/Non Drug Allergy documented on EMR Reaction Allergy Type Onset Date Status cefaclor Cefaclor unknown Drug Allergy Active Penicillin hives Drug Allergy Active Results Component Value Reference Range Notes CBC W/AUTO DIFF Reviewed date:10/04/2024 03:34:05 PM Interpretation: Performing Lab: Notes/Report: RT pulmonary function test Reviewed date:10/10/2024 07:48:07 AM Interpretation: Performing Lab: Notes/Report: Source Facility: [place] [address] [place] [address] Respiratory Report Signed Patient: MANUELA DAVILA MR#: [id number] : 1990 Acct:[id number] Age/Sex: 33 / M ADM Date: 10/04/24 Loc: CARD Attending Dr: Tao Kwong D.O. Ordering Physician: Tao Kwong D.O. Date of Service: 10/04/24 Procedure(s): RT pulmonary function test Accession Number(s): [id number] cc: [facility] Test Date: 2024-10-04 Pat Name: MANUELA DAVILA Department: Room: - Gender: Male Shipping Agent: Trey May RRT : 1990 Requested By: Tao Kwong Order Number: [id number] Reading MD: Tao Kwong Interpretive Statements Pulmonary [...] Signed By: 10/10/24 0656 DD/ 1322 TD/TT: Chemical Milling Processor: ANCA (ANTINEUTROPHIL CYTOPLA [facility] S[facility]EN) Reviewed date:10/04/2024 03:34:55 PM Interpretation: Performing Lab: Notes/Report: ASPERGILLUS ABS (FLAVUS,FUMI GATUS, NIGER) QUAL Reviewed date:10/04/2024 03:35:10 PM Interpretation: Performing Lab: Notes/Report: IGE, IMMUNOGLOBULIN (TOTAL) Reviewed date:10/04/2024 03:34:20 PM Interpretation: Performing Lab: Notes/Report: HEMOGLOBIN Reviewed date:10/10/2024 11:16:12 AM Interpretation: Performing Lab: Notes/Report: [facility] , Hemoglobin 15.9 14.0-18.0 g/dL Performing Lab: see note ML - [facility] Reason For Referral No Information Medications [...] HCl 100 MG TAKE 1 TABLET BY [facility] EVERY DAY AT BEDTIME Oral; Duration: 30 [...] Status W/U Status Risk Notes Problem Obesity (460378220) Obesity, unspecified (E66.9) Active confirmed Problem Uncomplicated severe persistent asthma (250522159) Severe persistent asthma, uncomplicated (J45.50) Active confirmed Problem Shortness of breath (214750694) Shortness of breath (R06.02) Active confirmed Problem Long-term current use of inhaled steroid (628881119) 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 project manager (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) use of inhaled steroids (Z79.51) Active confirmed Problem Gastroesophageal reflux disease (705865270) GERD (gastroesophagea l reflux disease) (K21.9) Active confirmed Problem Obstructive sleep apnea syndrome (29319101) JAZZY (obstructive sleep apnea) (G47.33) Active confirmed Problem Ex-tobacco user (finding) (005635614) History of tobacco abuse (Z87.891) Active confirmed [...] Date Performed Result Body Sit e PFT (34305, 38557, 92586) 09/26/2024 10/04/2024 N/A Inhaler Teaching/Aerosol-performed 11/14/2024 11/14/2024 N /A Encounters Encounter Location Date Provider Diagnosis [facility] [place] [address] [place] [address] 07/31/2024 [facility] [place] [address] [place] [address] 10/04/2024 [facility] [address] [place] [address] 11/20/2024 [facility] [address] [place] [address] 02/12/2025 [facility] [address] [place] [address] 09/26/2024 [facility] Severe persistent asthma, uncomplicated J45.50 ; GERD (gastroesophageal reflux disease) K21.9 ; JAZZY (obstructive sleep apnea) G47.33 ; History of tobacco abuse Z87.891 ; 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 project manager (current) use of inhaled steroids Z79.51 and Obesity, unspecified E66.9 [facility] [place] [address] [place] [address] 11/14/2024 [facility] Severe persistent asthma, uncomplicated J45.50 ; GERD (gastroesophageal reflux disease) K21.9 ; JAZZY (obstructive sleep apnea) G47.33 ; History of tobacco abuse Z87.891 ; 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 (current) use of inhaled steroids Z79.51 and Obesity, unspecified E66.9 Assessments Encounter Date Diagnosis (ICD Code) Assessment [...] and asthma. He has appointment with Dr. Gibsno tomorrow; patient was strongly encouraged to keep [...] that the DLCO is persistently low. 09/26/2024 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 project manager (current) use of inhaled steroids (ICD-10 - Z79.51) Patient was counseled to rinse & gargle with water after inhaled corticosteroid use. 09/26/2024 Obesity, unspecified (ICD-10 - E66.9) Patient's weight is inducing a restrictive pulmonary physiology. Weight loss indicated: Decrease calories, increase activity. 11/14/2024 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 project manager (current) use of inhaled steroids (ICD-10 - [...] [employer] [place] [address] [place] [address] [phone] [id number] Manuela Davila Self - patient is the insured Medical (General) History Medical History History ICD Code Severe persistent asthma, uncomplicated J45.50 JAZZY (obstructive sleep apnea) G47.33 GERD (gastroesophageal reflux disease) K 21.9 ADD (attention deficit disorder) F90.0 History of nephrolithiasis Z87.442 History of tobacco abuse Z87.891 Surgical History Surgery Date(Month/Year) septoplasty inguinal hernia repair tonsillectomy
--- NOTE | 2025-07-19 23:42 | PC.NURSE ---
this patient complains of a fever and a cough onset 2 weeks ago . this patient said her took 1000 mg of Tylenol 2 hours prior to arrival this patient voices no concerns, needs and shows no signs of distress
[2025-07-20 00:15] VITALS: BP 126/67; PULSE 86; TEMP 36.9; O2SAT 97; BMI 29.8
--- NOTE | 2025-07-20 00:35 | XR_ITS ---
The [address] [address] Patient Name: MANUELA CHAIDEZ MRN: [id number] date: 1990 Sex: M Assigned Patient Location: ER Current Patient Location: Accession/Order Number: [id number] Exam Date: 07/20/2025 00:41 Report Date: 07/20/2025 09:10 At the request of: BEBETO PEREZ MD Procedure: XR chest 2V XR chest 2V 07/20/2025 12:54 AM SIGNS AND SYMPTOMS: ^cough PROTOCOL: Frontal and lateral graphs of the chest COMPARISON: 11/20/2024 FINDINGS: The trachea is midline. The heart and mediastinal structures are within normal limits. The lung parenchyma is clear. The bony thorax is intact. There is a dextro convex curvature of the thoracic spine. XR/XR chest 2V IMPRESSION: No acute cardiopulmonary pathology. Impression dictated by: Terence Ramos M.D. 07/20/2025 9:10 AM Dictation Location: [facility] Electronically authenticated by: [id number] Y Date: 07/20/2025 09:10
--- NOTE | 2025-07-20 00:35 | ED.GENADUL1 ---
HPI HPI - General Adult General Chief complaint: Fever Stated complaint: FEVER Time Seen by Provider: 07/20/25 00:24 Source: patient Mode of arrival: walk-in Limitations: no limitations History of Present Illness HPI narrative: patient presents complaining of continued cough and sore throat. Was seen here last week. At that time he was he was not given any additional treatment as he was already prescribed prednisone and zpak via Telehealth. he is not improved. Throat still sore, voice still cracks and he has harsh dry cough. Not short of breath. No abdominal pain Related Data Home Medications ?Medication ?Instructions ?Recorded ?Confirmed dextroamphetamine-amphetamine 15 07/14/25 mg tablet prednisone 20 mg tablet mg 07/14/25 tizanidine 4 mg tablet mg 07/14/25 trazodone 100 mg tablet mg 07/14/25 Previous Rx's ?Medication ?Instructions ?Recorded prednisone 10 mg tablet See Rx Instructions .Route 07/02/24 .COMPLEX #30 tabs Allergies Allergy/AdvReac Type Severity Reaction Status Date / Time cefaclor ([facility]) Allergy Severe unknown Verified 07/19/25 23:38 Penicillins Allergy Severe unknown Verified 07/19/25 23:38 Opioid HPI Opioid Management Most Recent Opioid Data: Last Pain Scale 6 06/19/24, 11:21 Review of Systems ROS Status of ROS 10 or more systems reviewed and unremarkable except as noted in history and below PFSH PFSH Social History Smoking status: Former smoker Little interest or pleasure in doing things: not at all Feeling down, depressed, or hopeless: not at all Exam Constitutional Vital Signs, click to edit/add: Last Vital Signs Temp 98.5 F 07/20/25 00:15 Pulse 86 07/20/25 00:15 Resp 18 07/20/25 00:15 BP 126/67 07/20/25 00:15 Pulse Ox 97 07/20/25 00:15 O2 Del Method Room Air 07/20/25 00:15 Common normals: no apparent distress, average body habitus, oriented x3, no limitations, healthy appearing, alert and well nourished [facility] Common normals: normocephalic, head/scalp atraumatic, moist oral mucous membranes and oropharynx normal General ear: hearing grossly impaired Eye Common normals: PERRL, EOMs intact bilaterally and conjunctivae normal Respiratory Common normals: normal respiratory effort, no retractions, no use of accessory muscles and clear to auscultation bilaterally Cardio Common normals: regular rate, regular rhythm, S1 normal heart sound and S2 normal heart sound GI Common normals: Normal to inspection, nondistended, normoactive bowel sounds present, soft to palpation and non-tender Extremity Common normals: normal to inspection and full ROM Neuro Common normals: oriented x3, CN's II-XII intact bilaterally, moves all extremities and no focal motor deficits Psych Appearance: grossly normal Course Vital Signs Vital signs: Vital Signs Temperature 98.5 F 07/20/25 00:15 Pulse Rate 86 07/20/25 00:15 Respiratory Rate 18 07/20/25 00:15 Blood Pressure 126/67 07/20/25 00:15 Pulse Oximetry 97 07/20/25 00:15 Oxygen Delivery Method Room Air 07/20/25 00:15 Temperature 98.5 F 07/20/25 00:15 Pulse Rate 86 07/20/25 00:15 Respiratory Rate 18 07/20/25 00:15 Blood Pressure 126/67 07/20/25 00:15 Pulse Oximetry 97 07/20/25 00:15 Oxygen Delivery Method Room Air 07/20/25 00:15 Medical Decision Making [facility] Narrative Medical decision making narrative: patient presents with ongoing URI symptoms including cough and sore throat. No fever. Dry cough and coughing jags. has been treated with zpak and steroids without improvement. Exam neg except for cough and mild crackling of his voice. oral pharynx clear. chest clear. No lymphadenopathy. cxray per my preliminary review is neg. COVID 19, influenza and strep screen neg as well as normal CBC and LFTs. Does have nonspecific elevation of alk phos. Patient advised of working diagnosis of viral illness and prescribed Tessalon for cough Lab Data Labs: Lab Results 07/20/25 07/20/25 07/20/25 Range/Units 00:45 00:46 01:03 WBC 8.3 (4.0-11.0) 10^3/uL RBC 4.54 L (4.70-6.10) 10^6/uL Hgb 14.3 (14.0-18.0) g/dL Hct 40.9 L (42.0-54.0) % MCV 90.1 (80.0-94.0) fL MCH 31.5 (25.9-34.0) pg MCHC 35.0 (29.9-35.2) g/dL RDW 11.1 (11.0-15.0) % Plt Count 302 (150-450) 10^3/uL MPV 9.8 (9.5-13.5) fL Neut % (Auto) 65.0 (43.0-75.0) % Lymph % (Auto) 25.1 (20.5-60.0) % Elbert % (Auto) 8.5 (1.7-12.0) % Eos % (Auto) 0.2 L (0.9-7.0) % Baso % (Auto) 0.5 (0.2-2.0) % Neut # (Auto) 5.4 (1.4-6.5) 10^3/uL Lymph # (Auto) 2.1 (1.2-3.8) 10^3/uL Elbert # (Auto) 0.7 (0.3-0.8) 10^3/uL Eos # (Auto) 0.0 (0.0-0.7) 10^3/uL Baso # (Auto) 0.0 (0.0-0.1) 10^3/uL Abs Immat Gran (auto) 0.06 H (0.00-0.03) 10^3/uL Imm/Tot Granulo (auto) 0.7 H (0.0-0.5) % Sodium 135 L (136-145) mmol/L Potassium 3.9 (3.5-5.1) mmol/L Chloride 102 (98-107) mmol/L Carbon Dioxide 30.1 (21.0-32.0) mmol/L Anion Gap 6.8 BUN 11.0 (7.0-18.0) mg/dL Creatinine 0.76 (0.70-1.30) mg/dL Est GFR ( Amer) >60 (>=60 mL/min/1.73m^2) Est GFR (Non-Af Amer) >60 (>=60 mL/min/1.73m^2) BUN/Creatinine Ratio 14.5 Glucose 102 (74-106) mg/dL Calcium 8.8 (8.5-10.1) mg/dL Total Bilirubin 0.5 (0.2-1.0) mg/dL AST 18 (15-37) U/L ALT 121 H (16-63) U/L Alkaline Phosphatase 70 (46-116) U/L Total Protein 7.1 (6.4-8.2) g/dL Albumin 4.1 (3.4-5.0) g/dL Globulin 3.0 g/dL Albumin/Globulin Ratio 1.4 Urine Color Lt. yellow (YELLOW) Urine Clarity Clear (CLEAR) Urine pH 7.5 (5.0-9.0) Ur Specific [place] 1.015 (1.005-1.025) Urine Protein Negative (NEG/TRACE) mg/dL Urine Glucose (UA) Negative (NEGATIVE) mg/dL Urine Ketones Negative (NEGATIVE) mg/dL Urine Occult Blood Negative (NEGATIVE) Urine Nitrite Negative (NEGATIVE) Urine Bilirubin Negative (NEGATIVE) Urine Urobilinogen 0.2 (0.2-1.0) EU/dL Ur Leukocyte Esterase Negative (NEGATIVE) Influenza Type A Ag Negative Influenza Type B Ag Negative SARS-CoV-2 Ag (CV2AG) Negative (NEGATIVE) Streptococcus Screen Negative Discharge Plan Discharge Chief Complaint: Fever Clinical Impression: Viral infection Patient Disposition: Home, Self-Care Prescriptions / Home Meds: No Action prednisone 10 mg tablet See Rx Instructions .ROUTE .COMPLEX Qty: 30 0RF Rx Instructions: 4 by mouth daily for three days then 3 by mouth daily for three days then 2 by mouth daily for three days then 1 by mouth daily for three days tizanidine 4 mg tablet prednisone 20 mg tablet trazodone 100 mg tablet dextroamphetamine-amphetamine 15 mg tablet Print Language: [place] Instructions: Viral Syndrome (ED) Additional Instructions: follow up with Dr Solis next week Referrals: Wily Solis DO [Primary Care Provider, Internal Medicine] - 1 week
[2025-07-20 00:51] LABS: Hematocrit 40.9 % (42.0-54.0); Hemoglobin 14.3 g/dL (14.0-18.0); Immature Granulocytes Abs Auto 0.06 10^3/uL (0.00-0.03); Immature Granulocytes Pct Auto 0.7 % (0.0-0.5); Lymphocytes Absolute Auto 2.1 10^3/uL (1.2-3.8); Mean Corpuscular HGB Conc 35.0 g/dL (29.9-35.2); Mean Corpuscular Hemoglobin 31.5 pg (25.9-34.0); Mean Corpuscular Volume 90.1 fL (80.0-94.0); Platelet Count 302 10^3/uL (150-450); Red Blood Count 4.54 10^6/uL (4.70-6.10); White Blood Count 8.3 10^3/uL (4.0-11.0)
[2025-07-20 01:04] LABS: SARS-CoV-2 Ag NEGATIVE (NEGATIVE)
[2025-07-20 01:08] LABS: Alanine Aminotransferase 121 U/L (16-63); Albumin Globulin Ratio 1.4; Albumin Level 4.1 g/dL (3.4-5.0); Alkaline Phosphatase 70 U/L (46-116); Anion Gap 6.8; Aspartate Amino Transferase 18 U/L (15-37); Blood Urea Nitrogen 11.0 mg/dL (7.0-18.0); Calcium 8.8 mg/dL (8.5-10.1); Carbon Dioxide 30.1 mmol/L (21.0-32.0); Chloride 102 mmol/L (98-107); Estimated GFR (African America >60 (>=60 mL/min/1.73m^2); Estimated GFR (Non-African Ame >60 (>=60 mL/min/1.73m^2); Globulin 3.0 g/dL; Glucose 102 mg/dL (74-106); Potassium 3.9 mmol/L (3.5-5.1); Sodium 135 mmol/L (136-145); Total Protein 7.1 g/dL (6.4-8.2)
[2025-07-20 01:32] LABS: Glucose Urine UA NEGATIVE (NEGATIVE)
--- NOTE | 2025-07-20 02:43 | PC.NURSE ---
i gave this patient verbal and written discharge orders along with 1 Rx and this patient voices yes to understanding these. at time of discharge this patient voices no concerns, needs and shows no signs of distress
== END 2025-07-20 02:42 | disposition home or self-care (01) ==
PROVIDERS: Emergency Provider Internal Medicine; PCP Internal Medicine
DX: B34.9 Viral infection, unspecified (principal); Z87.891 Personal history of nicotine dependence; R05.9 Cough, unspecified
CPT/HCPCS: 36415; 71046; 80053; 81003; 85025; 87070; 87804; 87811; 87880; 99284